=== PATIENT | female | born 1980 | race Caucasian/White ===

== ENCOUNTER → 2017-11-02 15:39 | Outpatient (CLI) | payer MEDICARE, SELFPAY ==
[2017-11-02 18:18] LABS: Thyroid Stim Hormone (TSH) 1.18 uIU/mL (0.358-3.74)
[2017-11-04 12:09] LABS: RNP Ab <0.2 AI (0.0-0.9)
[2017-11-04 14:14] LABS: Smith Ab 0.2 AI (0.0-0.9)
[2017-11-04 16:11] LABS: PROEL- A/G Ratio 0.9 (0.7-1.7); PROEL- Albumin 3.4 g/dL (2.9-4.4); PROEL- Alpha-1 Globulin 0.4 g/dL (0.0-0.4); PROEL- Alpha-2 Globulin 1.1 g/dL (0.4-1.0); PROEL- Beta Globulin 1.3 g/dL (0.7-1.3); PROEL- Globulin, Total 3.8 g/dL (2.2-3.9); PROEL- TOTAL PROTEIN 7.2 g/dL (6.0-8.5)
== END ==
PROVIDERS: Family Provider Family Medicine; PCP Family Medicine; Visit Provider Psychiatry & Neurology Neurology
DX: G44.52 New daily persistent headache (NDPH) (principal); G47.33 Obstructive sleep apnea (adult) (pediatric); G47.50 Parasomnia, unspecified; G62.9 Polyneuropathy, unspecified; R20.2 Paresthesia of skin; R53.83 Other fatigue
CPT/HCPCS: 82746; 84165; 84443; 86235

== ENCOUNTER 2017-11-18 09:30 | Outpatient (RCR) | payer MEDICARE, SELFPAY ==
--- NOTE | 2017-11-09 11:49 | HP.PTEVAL_ITS ---
Patient's Visit Information CLIFTON SARAH is a 37 year old F referred to Physical Therapy by MD NHAN Dougherty with a diagnosis of gait instability and neuropathy. Date of Evaluation: 11/09/17 Physical Therapist: Dacia Cisneros - Visit Plan Frequency: 2x /Week Duration: 6 Weeks Plan: Needs 3 L O2 all the time. 2X/ week for 5 weeks for LE strength, gait training, balance, endurance activities with HEP - Subjective Subjective: Pt went through some test at the Neurologist and they said that my coordination and balance was off. 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 said that she is really weak. Pt can not go up 5 steps without being out of breath. She is on 3 L O2 all the time and has been on it all the time for hypopoxemia and L lung is totally collapsed. He O2 drops quickly without O2. She will probably be on oxygen for the rest of her life. She is always on steroids for her breathing issues. She needs to get stronger so she can do things at home by self without nurses cause she no longer has the nurses at home anymore. Pt has had no falls but she gets off balance easily. She has to watch going down the stairs in the morning and she uses the railing. SHe has safety buzzer incase she does fall. She does not drive...her drives her everywhere. 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 She has 18 staeps to bedroom and 3 steps into house. 16 stairs to basement. All with railings. Pt uses a rollator if she has to walk long distances. Pt has N&T in hands and feet and has been diagnosed with Neuropathy and takes gabapetin and it helps but makes her tired. She does not do any formal exercises at home. Pt can go to the high school to walk when she is done with PT to keep endurance up when completed with PT. She has some type of elliptical bkie thing at home for when she is done. Pt needs help with pickin gup grocery bags and laundry baskets etc due to weakness, balancem and endurance - Objective Gait: Walks with 3 L O2 on backpack. LE MMT: B hip flex 4/5, Knee ext B 4/5, Knee flex L 4-/5 and R 4/5, hip abd L 4-/5, R 4/5. Able to heel and toe raise but slight LOB with toe raise. FGA: 17. Sit to stand: needs UE to get up from the chair. Stairs: up and down stairs recip with 1 hand rail with increase SOB - Balance Scores Functional Gait Assessment Score: 17 % Disability: 43.3400 - Goals Goal 1:: I HEP Goal Time Frame: 4-6 Weeks Goal 2:: Be able to merchandise pickup/receiving associate a laundry basket X 10 without any LOB or difficulty and be able to merchandise pickup/receiving associate 10 bags of groceries without LOB or difficulty with SBA Goal Time Frame: 4-6 Weeks Goal 3:: Increase LE strength by 1/2 muscle grade to ease ADL's Goal Time Frame: 4-6 Weeks Goal 4:: Increase FGA by 5 points to decrease fall risk to (22) Goal Time Frame: 4-6 Weeks - Rehabilitation Potential Rehabilitation Potential: Good - Anticipated Interventions Therapeutic Exercise to Include: Strength training, Endurance training, Balance training, Flexibilty training, Gait and locomotor training, Active ROM, Dynamic Lumbar Stabilization For the Purpose of:: To improve muscle performance and motor function, To increase tolerance to activity/condition/position, To improve performance and independence with ADL's, To decrease level of supervision to perform tasks, To improve ability of physical actions for home/community/work/leisure, To improve gait and locomotor functions, To improve endurance, To improve balance, To improve safety with gait Functional Training to Include: Gait training For the Purpose of:: To improve gait and locomotor functions, To improve safety with gait Thank you for the opportunity to evaluate your patient. For Medicare and Medicare HMO plans, please review the plan of care and approve it. It will need to be FAXED BACK to us at [phone] for Medicare purposes. Please let me know if there are questions or concerns regarding this plan of care. Physician Signature: Date:
--- NOTE | 2018-03-04 14:10 | HP.PT.NRP ---
HP - Discharge Summary (1) - Patient Information CLIFTON SARAH was seen in my office for initial evaluation on 11/09/17. The following Plan of Care was established for this patient: Initial Frequency: 2x /Week Initial Duration: 6 Weeks - Anticipated Interventions Therapeutic Exercise to Include: Strength training, Endurance training, Balance training, Flexibilty training, Gait and locomotor training, Active ROM, Dynamic Lumbar Stabilization For the Purpose of:: To improve muscle performance and motor function, To increase tolerance to activity/condition/position, To improve performance and independence with ADL's, To decrease level of supervision to perform tasks, To improve ability of physical actions for home/community/work/leisure, To improve gait and locomotor functions, To improve endurance, To improve balance, To improve safety with gait Functional Training to Include: Gait training For the Purpose of:: To improve gait and locomotor functions, To improve safety with gait This patient was last seen in our office 11/18/17. Pertinent comments regarding their Physical therapy will appear below: DC PT due to pt being ill and not reschedule At this point I will be discontinuing this patient from physical therapy. I would be happy to see this patient again in the future if found appropriate by the physician. Thank you! Dacia Cisneros
== END 2017-11-18 19:00 | disposition home or self-care (01) ==
LOC: PT 09:30
PROVIDERS: Family Provider Family Medicine; PCP Family Medicine; Visit Provider Psychiatry & Neurology Neurology
DX: G62.9 Polyneuropathy, unspecified (principal); R26.9 Unspecified abnormalities of gait and mobility
CPT/HCPCS: 97110; 97162

== ENCOUNTER 2017-11-28 18:17 | Emergency (ER) | payer MEDICARE, SELFPAY ==
[2017-11-28 18:18] VITALS: BP 145/86; PULSE 85; RESP 16; TEMP 36.2; O2SAT 94; BMI 36.9
[2017-11-28 18:45] VITALS: O2SAT 3
--- NOTE | 2017-11-28 18:53 | ED.VISSUMM ---
- ER Visit Summary Date of Service: 11/28/17 Chief Complaint: Cough and wheezing History of Present Illness: The patient is a 37 F long-term history of underlying lung disease and asthma. Chronically is on oxygen. Is also a type II diabetic. Patient states last months she has had a cough which is progressively worsened and now with worsening wheezing. Her gis consultant Dr. Lorenzo Brown has recently put her on mag Z-Darian on Wednesday. She is also on a cough syrup. She currently is not on prednisone. She denies any chest pain or hemoptysis. She does have a fever. Physical Examination: Vital signs are stable her pulse ox is 94% on 3 L no hypoxia. Currently she is afebrile 97 2. He does not look septic or toxic. H EENT exam unremarkable. Neck nontender no JVD no lymphadenopathy. Lungs expiratory wheezing throughout. No rales or rhonchi. Equal symmetrical. Heart regular rhythm no murmur. Abdomen morbidly obese but soft nontender nondistended no giving or masses. Remedies moves all 4. Calves nontender no edema no cords. Her logically she is awake alert with no focal deficits. Test Results: Chest x-ray shows no acute abnormality. Emergency Department Course and Treatment: Treated with p.o. prednisone and DuoNeb and albuterol aerosols Treatment Plan: Exam the patient is doing well at 2044. He is much improved. No distress. She is comfortable being discharged home. She will be started on prednisone 20 mg a day for the next 10 days. Follow-up with Dr. Lorenzo Brown. She is currently on antibiotics and antitussives. Disposition: dc Impression: Acute dyspnea with wheezing Acute bronchitis with bronchospasm This note was generated with [employer] dictation software. It may contain incorrect words, spelling, and punctuation that were not noted in review of the chart prior to signing ED Disposition - Plan for ED Patient: Chief Complaint: Cough Referrals: Asim Cohn DO [Primary Care Provider] -
--- NOTE | 2017-11-28 18:56 | ED.DCSUM_ITS ---
- ER Visit Summary Date of Service: 11/28/17 Chief Complaint: Cough and wheezing History of Present Illness: The patient is a 37 F long-term history of underlying lung disease and asthma. Chronically is on oxygen. Is also a type II diabetic. Patient states last months she has had a cough which is progressively worsened and now with worsening wheezing. Her exploration engineer Dr. Lorenzo Brown has recently put her on mag Z-Darian on Wednesday. She is also on a cough syrup. She currently is not on prednisone. She denies any chest pain or hemoptysis. She does have a fever. Physical Examination: Vital signs are stable her pulse ox is 94% on 3 L no hypoxia. Currently she is afebrile 97 2. He does not look septic or toxic. H EENT exam unremarkable. Neck nontender no JVD no lymphadenopathy. Lungs expiratory wheezing throughout. No rales or rhonchi. Equal symmetrical. Heart regular rhythm no murmur. Abdomen morbidly obese but soft nontender nondistended no giving or masses. Remedies moves all 4. Calves nontender no edema no cords. Her logically she is awake alert with no focal deficits. Test Results: Chest x-ray shows no acute abnormality. Emergency Department Course and Treatment: Treated with p.o. prednisone and DuoNeb and albuterol aerosols Treatment Plan: Exam the patient is doing well at 2044. He is much improved. No distress. She is comfortable being discharged home. She will be started on prednisone 20 mg a day for the next 10 days. Follow-up with Dr. Lorenzo Brown. She is currently on antibiotics and antitussives. Disposition: dc Impression: Acute dyspnea with wheezing Acute bronchitis with bronchospasm This note was generated with [employer] dictation software. It may contain incorrect words, spelling, and punctuation that were not noted in review of the chart prior to signing ED Disposition - Plan for ED Patient: Chief Complaint: Cough Referrals: Asim Cohn DO [Primary Care Provider] -
[2017-11-28 19:06] VITALS: PULSE 77; RESP 30; O2SAT 96
[2017-11-28] MEDS: Ipratropium/Albuterol Sulfate 3 ML AMPUL.NEB INHALATION (19:06)
[2017-11-28] MEDS: Albuterol 2.5 MG/3 ML VIAL.NEB. INHALATION ×3 (19:06→19:45)
--- NOTE | 2017-11-28 19:28 | RAD_ITS ---
STUDY: X-RAY CHEST REASON FOR EXAM: Female, 37 years old. Cough for one month. TECHNIQUE: AP and lateral views of the chest. COMPARISON: July 15, 2017. FINDINGS: The right lung appears hyperexpanded. The left lung is expanded. There is no obvious airspace consolidation, pleural effusions or pneumothorax. There is no demonstrated pleural abnormality. There is borderline cardiomegaly. Normal mediastinum and cherelle. There is prominence of the pulmonary hilar arteries without peripheral pulmonary vascular congestion. There is atherosclerotic tortuosity of the aortic arch and descending thoracic aorta. Normal visualized thoracic spine. Normal visualized ribs, clavicles, and shoulders. There is no demonstrated abnormality of the visualized soft tissue structures of the upper abdomen. RAD/Chest PA and Lateral IMPRESSION: No radiographic evidence of acute cardiopulmonary disease. Electronically Signed: Joseline Long MD at 19:59 EST , Service support ,
[2017-11-28 19:45] VITALS: PULSE 75; RESP 28
--- NOTE | 2017-11-28 20:57 | ED.DEP ---
ED Disposition - Plan for ED Patient: Disposition: Home or Assisted Living Chief Complaint: Cough Instructions: ED Bronchitis Asthmatic Prescriptions: Prednisone [Deltasone] 40 mg PO DAILY 10 Days tab Referrals: Lorenzo Brown MD [STAFF PHYSICIAN] - 3-5 Days Additional Instructions: Continue your antibiotic. Continue your cough medication. Prednisone 40 mg a day till gone. Call and follow-up with Dr. Lorenzo Brown. Return to ER feeling worse.
[2017-11-28 21:03] VITALS: BP 119/65; PULSE 98; RESP 24; O2SAT 97
--- NOTE | 2017-11-28 21:05 | ED.RN ---
THIS NURSE REVIEWED D/C INSTRUCTIONS WITH PT AND S.O. PT VERBALIZED UNDERSTANDING OF INSTRUCTIONS. PT DENIES FURTHER NEEDS OR QUESTIONS AT THIS TIME.
== END 2017-11-28 21:06 | disposition home or self-care (01) ==
PROVIDERS: Emergency Provider Emergency Medicine; Family Provider Family Medicine; PCP Family Medicine
DX: J20.9 Acute bronchitis, unspecified (principal); R06.00 Dyspnea, unspecified; J45.909 Unspecified asthma, uncomplicated; E11.9 Type 2 diabetes mellitus without complications; Z99.81 Dependence on supplemental oxygen; Z79.84 Long term (current) use of oral hypoglycemic drugs; Z79.899 Other long term (current) drug therapy
CPT/HCPCS: 71046; 94640; 99283

== ENCOUNTER 2017-11-30 09:50 | Inpatient (IN) | payer MEDICARE, SELFPAY ==
[2017-11-30] VITALS (11 sets, daily range): BP systolic 136–167; BP diastolic 74–96; PULSE 78–110; RESP 16–20; TEMP 36.8–36.9; O2SAT 96–98; BMI 39.2
--- NOTE | 2017-11-30 10:43 | PCM.HP.STD ---
Problem List (1) Restrictive airway disease Status: Chronic (2) Asthma Status: Chronic Qualifiers: Asthma severity: moderate Asthma persistence: persistent Asthma complication type: uncomplicated Qualified Code(s): J45.40 - Moderate persistent asthma, uncomplicated; J45.40 - Moderate persistent asthma, uncomplicated; J45.40 - Moderate persistent asthma, uncomplicated (3) Asthma exacerbation Status: Acute Qualifiers: Asthma severity: unspecified severity Asthma persistence: unspecified Qualified Code(s): J45.901 - Unspecified asthma with (acute) exacerbation (4) Chronic hypoxemic respiratory failure Status: Chronic (5) Community acquired pneumonia Status: Inactive (6) Diaphragmatic hernia congenital Status: Chronic (7) Failure of outpatient treatment Status: Acute (8) HTN (hypertension) Status: Chronic (9) hx chest surgery Status: Chronic Comment: age 8 (10) Hypokalemia Status: Chronic (11) Morbid obesity Status: Chronic (12) Obesity Status: Chronic (13) Obstructive sleep apnea Status: Chronic (14) RLQ intramuscular mass Status: Chronic (15) Type 2 diabetes mellitus Status: Chronic (16) Viral URI Status: Suspected History of Present Illness Date of Admission: 11/30/17 Chief Complaint: Shortness of breath The patient is a 37 year old F past medical history significant for moderate persistent asthma, restrictive airway disease, chronic diastolic congestive heart failure obesity with BMI of 39.2 presented with shortness of breath. Patient had apparently been treated for suspected infectious bronchitis as outpatient by her PCP for a couple of weeks. Patient however reports worsening condition patient had apparently been seen in the emergency department 2 days prior to her admission was discharged home on Zithromax and prednisone. She was instructed to follow-up with her collaborating supervising physician/PCP. Patient was evaluated in the office on the day of her admission found to have significant bronchospasm subsequently sent to be admitted directly for inpatient management. On further questioning patient did admit to intermittent chills as well as subjective fever. Denied any nausea no vomiting. Did admit to having cough and wheezing. Past Medical History Past Medical History (Chronic Problems): Chronic Problems (Last Reviewed 11/30/17 @ 08:58 by Meli Pelaez) Restrictive airway disease (Chronic) Diaphragmatic hernia congenital (Chronic) Chronic hypoxemic respiratory failure (Chronic) Obstructive sleep apnea (Chronic) Morbid obesity (Chronic) Hypokalemia (Chronic) Asthma (Chronic) HTN (hypertension) (Chronic) Obesity (Chronic) RLQ intramuscular mass (Chronic) hx chest surgery (Chronic) age 8 Type 2 diabetes mellitus (Chronic) Allergies nabumetone Allergy (Unknown, Verified 11/30/17 08:57) Unknown hydrocodone bitartrate [From [place]] Allergy (Verified 11/30/17 08:57) Itching Penicillins Allergy (Verified 11/30/17 08:57) Swelling Home Medications: Ambulatory Orders Medication Instructions Recorded Metoprolol(XL)Succ [Toprol Xl 200 mg PO DAILY 02/10/14 (Beta Vishal)] Escitalopram Oxalate [Lexapro] 5 mg PO DAILY 10/23/15 Metformin HCl [Metformin HCl ER] 1,000 mg PO BID 03/25/16 Montelukast [Singulair] 10 mg PO QHS 04/21/16 Albuterol Aerosols [Ventolin 2.5 mg INHALATION Q4H PRN PRN 12/03/16 Aerosols] Albuterol Inhaler [Ventolin Hfa] 2 puff INHALATION Q4H PRN PRN 12/03/16 Dicyclomine HCl [Bentyl] 10 mg PO ACHS 12/03/16 Ipratropium/Albuterol Sulfate 3 ml INHALATION Q6H.RT 12/03/16 [Duoneb] Metolazone [Zaroxolyn] 5 mg PO Q7D 12/03/16 Multivitamin with Folic Acid 1 ea PO DAILY 12/03/16 [Thera Tablet] Potassium Chloride 20 meq PO DAILY 12/03/16 Sertraline HCl [Zoloft] 100 mg PO DAILY 08/29/17 baclofen 10 mg tablet 20 mg PO TID PRN tab 09/24/17 fluticasone 50 mcg/actuation nasal 2 spray INTRANASAL DAILY PRN 09/24/17 spray,suspension furosemide 40 mg tablet 20 mg PO BID tab 09/24/17 gabapentin 100 mg capsule 100 mg PO TID cap 09/24/17 benzonatate 100 mg capsule 100 mg PO TID PRN #30 cap 11/26/17 Azithromycin 250 mg PO DAILY 11/30/17 Dulaglutide [Trulicity] 1.5 mg SQ QWEEK 11/30/17 Naproxen [Naprosyn] 500 mg PO BID PRN PRN 11/30/17 Omeprazole 20 mg PO DAILY 11/30/17 Pantoprazole Sodium [Protonix] 40 mg PO DAILY 11/30/17 Prednisone [Deltasone] 40 mg PO BID 11/30/17 ProMETHAzine [Phenergan] 25 mg PO Q8H PRN PRN 11/30/17 Spironolactone [Aldactone] 25 mg PO BID 11/30/17 Sumatriptan Succinate [Imitrex] 100 mg PO DAILY PRN 11/30/17 Topiramate [Trokendi Xr] 50 mg PO QHS 11/30/17 Verapamil HCl [Verapamil ER] 240 mg PO BID 11/30/17 Surgical History: - - hysterectomy, tubal ligation, cardiac surgery of unclear reason. She mentioned that she has abnormal positioned heart and she went for surgery for it. History of lung surgery and possible chest tubes. Psychiatric History: No pertinent psych hx DIRECTOR PRESALES History: No pertinent DIRECTOR PRESALES history Smoking Status: Never smoker - *Family History Maternal History Items: No pertinent history Paternal History Items: No pertinent history Review of Systems Constitutional: Reports: Chills, Weakness, Fatigue HEENT: Denies: Head Aches, Sinus Congestion, Sinus Drainage Cardiovascular: Denies: Chest Pain, Palpitations Respiratory: Reports: Cough, Shortness of Breath, Wheezing Gastrointestinal: Denies: Abdominal Pain, Hematemesis, Hematochezia, Nausea, Melena, Vomiting Genitourinary: Denies: Dysuria, Frequency, Hematuria, Urgency Musculoskeletal: Denies: Joint Pain, Joint Tenderness Skin: Denies: Rash Neurological: Denies: Focal weakness, Numbness, Tingling Psychiatric: Denies: Homicidal Ideations, Suicidal Ideations Hematologic/ Lymphatic: Denies: Easy Bruising, Easy Bleeding VTE Information - Inpt Only VTE Present on Admission: No VTE Mechan Device Prophylaxis: Knee High BRAYAN Hose VTE Pharm Prophylaxis ordered?: Yes Objective: GENERAL: cooperative HEENT: Clear conjunctiva, NECK; supple, normal thyroid, CHEST: Diminished to auscultation bilaterally, with wheezes more pronounced on the right lung HEART: Regular S1 S2, no audible murmurs ABDOMEN: soft, non-tender, normoactive bowel sounds, RECTAL: deferred EXTREMITIES: No edema, no clubbing, no cyanosis. MEDICINE TEACHER: Awake,no lateralizing signs. SKIN: No lesions no erythema, - Physical Exam Vital Signs Temp Pulse Resp BP Pulse Ox 98.3 F 82 20 H 137/96 H 98 11/30/17 10:11 11/30/17 10:11 11/30/17 10:11 11/30/17 10:13 11/30/17 10:11 Oxygen Flow Rate 3 Oxygen Delivery Method Nasal Cannula Assessment/Plan Patient is a 37-year-old lady with past medical history significant for asthma/restrictive lung disease presented with progressive shortness of breath 1. Exacerbation of asthma/restrictive lung disease: Patient is being admitted to regular nursing floor. She apparently did fail outpatient treatment. Patient started on systemic steroid, bronchodilator therapy, supplemental oxygen with consultation placed to pulmonary medicine case discussed with Dr. Mcclendon 2. Diabetes mellitus type 2 with labile control with episodes of both hypo-and hyperglycemia did continue with home regimen in addition to Accu-Cheks before meals and at bedtime with sliding scale coverage 3. Hypertension-blood pressure controlled, home medications continued with dose adjustment as needed 4. Morbid obesity with BMI of 39.2: Weight loss advised 3. History of open heart surgery for congenital heart disease for which patient apparently underwent correction for vascular abnormalities involving the heart (details not available) next 6. Depression with anxiety: Patient is on SSRI 7. Chronic diastolic congestive heart failure patient is on Lasix as well as Aldactone 8. DVT prophylaxis SC Lovenox Code Visit Inpatient E&M: 49552 Init Hosp L3
[2017-11-30] MEDS: 0.9% NaCl Peripheral Flush Adult/Peds IV ×3 (11:10→22:24)
[2017-11-30] MEDS: oxyCODONE 5 MG Tablet PO ×3 (11:10→22:14)
[2017-11-30 11:11] LABS: Bedside Glucose 85 mg/dL (70-110)
[2017-11-30] MEDS: Ipratropium/Albuterol Sulfate 3 ML AMPUL.NEB INHALATION ×3 (11:24→19:26)
[2017-11-30 11:44] LABS: BNP,B-Type NATRIURETIC PEPTIDE 50.5 pg/mL (0-100)
[2017-11-30 12:06] LABS: D-Dimer Quantitative (DVT/PE) < 0.27 FEU/ug/m (0.27-0.49)
[2017-11-30] MEDS: guaiFENesin 1,200 MG Tablet 1200 MG PO ×2 (12:19→22:14)
[2017-11-30] MEDS: Enoxaparin 40 MG/0.4 ML Syringe SC (12:19)
[2017-11-30 12:35] LABS: Absolute Lymphocyte Count 2.92 X10^3/ul (0.83-4.51); Absolute Neutrophil Count 5.6 X10^3/uL (2.0-7.7); Basophil# 0.03 X10^3/uL; Basophil% 0.3 % (0-1); Eosinophil# 0.05 X10^3/uL; Eosinophils% 0.5 % (0-5); Hematocrit 39.2 % (37-47); Lymphocyte # 2.92 X10^3/ul (4.0); Lymphocyte % 30.9 % (19-41); Mean Corp Hgb Conc 33.2 g/gl (32-36); Mean Corpuscular Hgb 27.6 pg (27.0-32.0); Mean Corpuscular Volume 83.2 fL (81-99); Mean Platelet Vol. 9.6 fl (6.2-12.0); Monocyte# 0.82 X10^3/uL; Monocyte% 8.7 % (0-10); Neutrophil % 59.2 % (47-70); Platelet Count 233 K/mm3 (150-450); RBC Distribution Width CV 13.9 % (11.6-14.6); Red Blood Count 4.71 M/mm3 (4.2-5.4); White Blood Count 9.5 K/mm3 (4.4-11.0)
[2017-11-30 12:36] LABS: Anion Gap 8 (5-15); BUN 12 mg/dL (7-18); BUN/Creat Ratio 15.9 RATIO (10-20); Calcium,Total 8.3 mg/dL (8.5-10.1); Chloride 107 mmol/L (98-107); Creatinine, Serum 0.76 mg/dL (0.55-1.02); EST Glomerular Filtration Rate 92 mL/min (>60); Est Glom Filt Rate - Afr Amer 112 mL/min (>60); Estimated Creatinine Clearance 107.97 ml/min; Glucose 89 mg/dL (74-106); Magnesium 2.1 mg/dL (1.6-2.6); Potassium 3.4 mmol/L (3.5-5.1); Sodium Level 141 mmol/L (136-145)
[2017-11-30 12:37] LABS: POSITIVE COUNT NO; POSITIVE DIFFERENTIAL NO; POSITIVE MORPHOLOGY NO
--- NOTE | 2017-11-30 13:01 | CON.PCM_ITS ---
Problem List (1) Failure of outpatient treatment Status: Acute (2) Hypokalemia Status: Chronic (3) Restrictive airway disease Status: Chronic (4) Chronic hypoxemic respiratory failure Status: Chronic (5) Diaphragmatic hernia congenital Status: Chronic (6) HTN (hypertension) Status: Chronic (7) Morbid obesity Status: Chronic (8) Obstructive sleep apnea Status: Chronic (9) Type 2 diabetes mellitus Status: Chronic (10) hx chest surgery Status: Chronic Comment: age 8 Reason for Consult Date of Consultation: 11/30/17 Reason for Consultation: dyspnea History of Present Illness: The patient is a 37 year old F known to with past medical history as below who was sent from the pulmonary clinic as a direct admit secondary to failed outpatient therapy for suspected URI versus asthma exacerbation. The patient was seen by Flori Lee NP as an acute visit today. Patient complains of a persistent, nonproductive cough and history of fever on Wednesday of 102.0?F. Patient has failed 2 rounds of outpatient Z-Paks and steroid tapers. Patient went to the ER on November 28 and was again treated with prednisone 40 mg daily for diagnosis of acute bronchitis with bronchospasm. Patient reported she actually blacked out yesterday and fell to the ground with no injury except for her right knee and left hand abrasions. She has had some nausea and vomiting associated with coughing. Her blood sugars have been elevated up to 450 since being on the prednisone. She is not on any insulin at home, however she takes metformin 1000 mg twice daily. Patient has been using her albuterol nebulizers every 4 hours with some relief. She also complains of dyspnea on exertion, chest tightness/pain with coughing, and wheezing. Patient was admitted to the progressive care unit for further evaluation and management. Chest x-ray obtained when patient was in ED on 11/28/17 and showed no acute cardiopulmonary disease. Blood work shows no leukocytosis, slightly low potassium at 3.4, normal BNP, and negative d-dimer. Influenza screen was negative. Respiratory panel was also obtained and is pending. The patient was started on scheduled DuoNeb aerosols q4hr, as needed albuterol, Mucinex, and IV Solu-Medrol ?4 doses with transition to oral steroids. She is maintaining appropriate saturations on her home oxygen requirements of 3 L per nasal cannula. She does wear the 3 L continuously at home and with bleed into her CPAP at night. Patient reports compliance with her noninvasive positive pressure therapy. Pulmonary exercise test was performed on 07/21/17 and demonstrated no need for supplemental oxygen at rest, however 3 L/min supplementation with any exertion. Pulmonary function tests in July 2017 demonstrated severe restrictive ventilatory defect with symmetric reduction in diffusing capacity. There were subtle signs of possible concomitant airway obstruction. Patient also reports a history of epilepsy and is on medications to manage. Also had echocardiogram in August 2017 that showed an estimated EF of 60%, mildly enlarged left atrium , trivial MVI and TVI. CTA chest 04/2016 showed elevation of the left hemidiaphragm with volume loss in the left hemithorax. There was stable scarring to the left lung base. Past Medical History Past Medical History (Chronic Problems): Chronic Problems (Last Reviewed 11/30/17 @ 08:58 by Meli Pelaez) Restrictive airway disease (Chronic) Diaphragmatic hernia congenital (Chronic) Chronic hypoxemic respiratory failure (Chronic) Obstructive sleep apnea (Chronic) Morbid obesity (Chronic) Hypokalemia (Chronic) Asthma (Chronic) HTN (hypertension) (Chronic) Obesity (Chronic) RLQ intramuscular mass (Chronic) hx chest surgery (Chronic) age 8 Type 2 diabetes mellitus (Chronic) Allergies nabumetone Allergy (Unknown, Verified 11/30/17 08:57) Unknown hydrocodone bitartrate [From [place]] Allergy (Verified 11/30/17 08:57) Itching Penicillins Allergy (Verified 11/30/17 08:57) Swelling Home Medications: Ambulatory Orders Medication Instructions Recorded Metoprolol(XL)Succ [Toprol Xl 200 mg PO DAILY 02/10/14 (Beta Vishal)] Escitalopram Oxalate [Lexapro] 5 mg PO DAILY 10/23/15 Metformin HCl [Metformin HCl ER] 1,000 mg PO BID 03/25/16 Montelukast [Singulair] 10 mg PO QHS 04/21/16 Albuterol Aerosols [Ventolin 2.5 mg INHALATION Q4H PRN PRN 12/03/16 Aerosols] Albuterol Inhaler [Ventolin Hfa] 2 puff INHALATION Q4H PRN PRN 12/03/16 Dicyclomine HCl [Bentyl] 10 mg PO ACHS 12/03/16 Ipratropium/Albuterol Sulfate 3 ml INHALATION Q6H.RT 12/03/16 [Duoneb] Metolazone [Zaroxolyn] 5 mg PO Q7D 12/03/16 Multivitamin with Folic Acid 1 ea PO DAILY 12/03/16 [Thera Tablet] Potassium Chloride 20 meq PO DAILY 12/03/16 Sertraline HCl [Zoloft] 100 mg PO DAILY 08/29/17 baclofen 10 mg tablet 20 mg PO TID PRN tab 09/24/17 fluticasone 50 mcg/actuation nasal 2 spray INTRANASAL DAILY PRN 09/24/17 spray,suspension furosemide 40 mg tablet 20 mg PO BID tab 09/24/17 gabapentin 100 mg capsule 100 mg PO TID cap 09/24/17 benzonatate 100 mg capsule 100 mg PO TID PRN #30 cap 11/26/17 Azithromycin 250 mg PO DAILY 11/30/17 Dulaglutide [Trulicity] 1.5 mg SQ QWEEK 11/30/17 Naproxen [Naprosyn] 500 mg PO BID PRN PRN 11/30/17 Omeprazole 20 mg PO DAILY 11/30/17 Pantoprazole Sodium [Protonix] 40 mg PO DAILY 11/30/17 Prednisone [Deltasone] 40 mg PO BID 11/30/17 ProMETHAzine [Phenergan] 25 mg PO Q8H PRN PRN 11/30/17 Spironolactone [Aldactone] 25 mg PO BID 11/30/17 Sumatriptan Succinate [Imitrex] 100 mg PO DAILY PRN 11/30/17 Topiramate [Trokendi Xr] 50 mg PO QHS 11/30/17 Verapamil HCl [Verapamil ER] 240 mg PO BID 11/30/17 Surgical History: - - hysterectomy, tubal ligation, cardiac surgery of unclear reason. She mentioned that she has abnormal positioned heart and she went for surgery for it. History of lung surgery and possible chest tubes. 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 Denies: Anorexia, Chills, Fever, Malaise, Weight Change Eyes: Denies: Vision Change HEENT: Denies: Difficulty Swallowing, Nasal bleeding, Nasal Congestion, Post Nasal Drip, Sinus Congestion, Sore Throat Cardiovascular: Reports: Chest Pain - With coughing, Chest Tightness, Light Headedness, - - Blacked out at home, no LOC. Denies: Edema, Orthopnea, Palpitations, Paroxysmal Noc. Dyspnea Respiratory: Reports: Cough, Shortness of breath upon exertion, Sputum production - Minimal, white to yellow. Denies: Hemoptysis, Shortness of breath at rest Gastrointestinal: Reports: Abdominal Pain, Diarrhea - Over the weekend, resolved., Nausea - Intermittent. Denies: Constipation, Dyspepsia, Hematemesis , Hematochezia, Melena, Vomiting Genitourinary: Denies: Dysuria, Frequency, Hematuria, Hesitancy, Nocturia, Retention Gynecological: Denies: Breast symptoms Musculoskeletal: Reports: - - Peripheral neuropathy pain Skin: Denies: Rash, Wounds Neurological: Reports: Balance problems, - - Peripheral neuropathy. Denies: Change in Speech, Confusion, Focal weakness, Tremor Psychiatric: Reports: Anxiety, Depression Endocrine: Denies: Change in Body Habitus, Polydipsia, Polyuria Hematologic/ Lymphatic: Reports: Easy Bruising. Denies: Adenopathy, Anemia, Easy Bleeding, Hx of blood clot Subjective: Patient was seen and examined. She is lying in bed in no acute distress, at bedside. She is coughing of yellow sputum and gave a sample. She complains of pain in her chest with coughing, wheezing, and dyspnea on exertion. - Physical Exam General: Alert, Oriented x3, Cooperative, No apparent distress, Well developed, Well nourished, - - Obese HEENT: Atraumatic, Normocephalic Oral: Moist Mucosa, No Gingival or Mucosal Lesions/ Ulcerations Neck: Supple, No Nodes, Trachea Midline, - - Increased neck circumference Lungs: - - Diminished throughout with moderate global expiratory wheeze, no rhonchi or rales. Symmetric expansion, no accessory muscle use Cardiovascular: Regular rate, Regular Rhythm, Normal S1, Normal S2, No murmurs, No rub noted, No Gallop Abdomen: Bowel Sounds Present, Soft, Non Tender, Non-Distended, Obese Extremities: No clubbing, No cyanosis, No edema, Capillary Refill Less than 3 Seconds, No Calf Tenderness, Peripheral Pulses Normal Skin: No rashes, - - Abrasion to right knee, no drainage Musculoskeletal: No Tenderness to Palpation of Joints or Extremities Lymphatic: No Cervical, Supraclavicular, or Inguinal Adenopathy Neurological: Cranial nerves II-XII grossly intact, Neuro grossly intact, Motor Exam 5/5 strength throughout Psych/Mental Status: Alert and oriented to time, place, person, mood and affect Vital Signs Temp Pulse Resp BP Pulse Ox 98.3 F 81 16 137/96 H 96 11/30/17 10:11 11/30/17 11:24 11/30/17 11:24 11/30/17 10:13 11/30/17 11:24 Oxygen Flow Rate 3 Oxygen Delivery Method Nasal Cannula Weight: 265 lb 9.6 oz Body Mass Index (BMI) 39.2 Intake and Output for Last 24 Hours 11/28/17 11/29/17 11/30/17 23:59 23:59 23:59 Intake Total 420 / 420 Balance 420 / 420 Microbiology Past 72 Hours 11/30/17 11:20 Influenza Types A,B Direct FA (ANNELISE) - Final Mucosa - Nose Laboratory Tests Past 24 Hrs 11/30/17 11/30/17 11/30/17 10:55 10:55 10:55 WBC 9.5 RBC 4.71 Hgb 13.0 Hct 39.2 MCV 83.2 MCH 27.6 MCHC 33.2 RDW 13.9 RDW Differential 42.0 Plt Count 233 MPV 9.6 Immature Gran % (Auto) 0.400 Neut % (Auto) 59.2 Lymph % (Auto) 30.9 [place] % (Auto) 8.7 Eos % (Auto) 0.5 Baso % (Auto) 0.3 Absolute Neuts (auto) 5.6 Absolute Lymphs (auto) 2.92 Total Counted Not Reportable D-Dimer Quant (PE/DVT) < 0.27 L Sodium Potassium Chloride Carbon Dioxide Anion Gap BUN Creatinine Estim Creat Clear Calc Est GFR (MDRD) Af Amer Est GFR (MDRD) Non-Af BUN/Creatinine Ratio Glucose Calcium Magnesium B-Natriuretic Peptide 50.5 11/30/17 10:55 WBC RBC Hgb Hct MCV MCH MCHC RDW RDW Differential Plt Count MPV Immature Gran % (Auto) Neut % (Auto) Lymph % (Auto) [place] % (Auto) Eos % (Auto) Baso % (Auto) Absolute Neuts (auto) Absolute Lymphs (auto) Total Counted D-Dimer Quant (PE/DVT) Sodium 141 Potassium 3.4 L Chloride 107 Carbon Dioxide 26.0 Anion Gap 8 BUN 12 Creatinine 0.76 Estim Creat Clear Calc 107.97 Est GFR (MDRD) Af Amer 112 Est GFR (MDRD) Non-Af 92 BUN/Creatinine Ratio 15.9 Glucose 89 Calcium 8.3 L Magnesium 2.1 B-Natriuretic Peptide POC Glucose 11/30/17 11:04 POC Glucose 85 Assessment/Plan RECOMMENDATIONS 1. Wean oxygen supplementation to keep saturations greater than 90%. 2. Encourage incentive spirometer 3. Increase activity as tolerated 4. Continue aerosols 5. Await respiratory panel 6. Change IV steroids to 40 mg q6 hours 7. Discontinue NicoDerm patch, patient non-smoker 8. Adjust insulin for blood sugar control while on steroids, patient may need to be discharged on temporary insulin 9. Obtain sputum culture 10. Continue CPAP at night with 3 L oxygen bleed 11. Walking oximetry prior to discharge IMPRESSIONS 1. Asthma exacerbation Per PFTs, patient does not have COPD. Patient with outpatient treatment failure on 2 rounds of Z-Darian and steroids. Still with significant wheezing, fevers over the weekend, nausea. No chilling. Blood sugars have been high since on steroids, felt like she was going to pass out yesterday. She has been afebrile with no leukocytosis. Respiratory panel and sputum pending. Influenza negative. D-dimer and BNP normal. Patient has significant hernia that could be exacerbating her asthma. She is on baseline PPI at home. Change IV steroids to 40mg q6h. Likely can discontinue antibiotics if cultures data normal. Increase activity as tolerated and continue bronchodilators. 2. Chronic respiratory failure Patient wears 3 L oxygen at all times, despite walking oximetry showing she needed only with exertion. He does have significant exercise intolerance. This may be partially due to obesity hypoventilation syndrome. Wean oxygen supplementation to keep saturations greater than 90%. Walking oximetry prior to discharge to reassess exertional need requirements. 3. Diabetes mellitus/hypertension/morbid obesity/history of chest surgery/ hypokalemia/congenital diaphragmatic hernia [place] care, management, recovery, and prognosis. Adjust insulin as necessary for better glucose control. Likely okay to continue her home medications otherwise. This note was generated with Dragon dictation software. It may contain incorrect words, spelling, and punctuation that were not noted in checking the note before signing.
[2017-11-30] MEDS: Dicyclomine 10 MG Capsule PO ×2 (16:13→22:14)
[2017-11-30] MEDS: Gabapentin 100 MG Capsule PO (16:13)
[2017-11-30 16:26] LABS: Bedside Glucose 96 mg/dL (70-110)
[2017-11-30] MEDS: Spironolactone 25 MG Tablet PO (17:31)
[2017-11-30] MEDS: Benzonatate 100 MG Capsule PO (17:31)
[2017-11-30] MEDS: Furosemide 20 MG Tablet PO (17:31)
[2017-11-30] MEDS: Verapamil SR 240 MG Tablet PO (22:14)
[2017-11-30] MEDS: Montelukast 10 MG Tablet PO (22:14)
[2017-11-30] MEDS: TOPIRAMATE 50 MG PO (22:14)
[2017-11-30 22:35] LABS: Bedside Glucose 172 mg/dL (70-110)
[2017-12-01] VITALS (11 sets, daily range): BP systolic 124–152; BP diastolic 70–82; PULSE 72–107; RESP 16–28; TEMP 36.4–37; O2SAT 95–97
[2017-12-01] MEDS: 0.9% NaCl Peripheral Flush Adult/Peds IV ×4 (00:38→23:16)
[2017-12-01] MEDS: Dicyclomine 10 MG Capsule PO ×4 (06:27→21:29)
[2017-12-01] MEDS: oxyCODONE 5 MG Tablet PO ×2 (06:27→10:35)
[2017-12-01 07:01] LABS: Bedside Glucose 200 mg/dL (70-110)
[2017-12-01] MEDS: Ipratropium/Albuterol Sulfate 3 ML AMPUL.NEB INHALATION ×5 (07:23→23:29)
[2017-12-01] MEDS: Gabapentin 100 MG Capsule PO ×3 (08:34→16:20)
[2017-12-01] MEDS: Multivitamins,Therapeutic Tablet 1 TABLET PO (08:34)
--- NOTE | 2017-12-01 10:05 | PCM.PROGNOTE ---
Patient Problems: Active and Suspected Problems (Last Reviewed 11/30/17 @ 08:58 by Meli Pelaez) Viral URI (Acute) Asthma exacerbation (Acute) Subjective: The patient was seen and examined. She is sitting up in the chair. States she did not sleep much last night secondary to coughing, does worsen if lying down. Reports Brian Dunn not helping. States her breathing has improved with less wheezing. Denies reflux at this time. Remains afebrile and hemodynamically stable. Objective: Recent lab and culture data reviewed. Respiratory panel showing RSV B, influenza negative. Respiratory culture is pending with Gram stain showing 3+ gram-positive cocci, 2+ gram-negative rods, and 1+ WBCs. Blood sugar this morning was 200. Patient on sliding scale NovoLog. - Physical Exam General: Alert, Oriented x3, Cooperative, No apparent distress, Well developed, Well nourished HEENT: Atraumatic, Normocephalic Oral: Moist Mucosa, No Gingival or Mucosal Lesions/ Ulcerations Neck: Supple, No Nodes, Trachea Midline Lungs: Diminished, - - Diminished with expiratory wheezes R>L, improved airflow Cardiovascular: Regular rate, Regular Rhythm, Normal S1, Normal S2, No murmurs, No rub noted, No Gallop Abdomen: Bowel Sounds Present, Soft, Non Tender, Non-Distended, Obese, Hernia Extremities: No clubbing, No cyanosis, No edema Skin: No rashes, No breakdown Musculoskeletal: No Tenderness to Palpation of Joints or Extremities Lymphatic: No Cervical, Supraclavicular, or Inguinal Adenopathy Neurological: Cranial nerves II-XII grossly intact, Neuro grossly intact, Motor Exam 5/5 strength throughout Psych/Mental Status: Alert and oriented to time, place, person, mood and affect Vital Signs Temp Pulse Resp BP Pulse Ox 97.8 F 92 18 150/79 H 97 12/01/17 04:20 12/01/17 07:23 12/01/17 07:23 12/01/17 04:20 12/01/17 07:23 Oxygen Flow Rate 3 Oxygen Delivery Method Nasal Cannula Weight: 265 lb 9.6 oz Body Mass Index (BMI) 39.2 Intake and Output for Last 24 Hours 11/29/17 11/30/17 12/01/17 23:59 23:59 23:59 Intake Total 721 / 721 444 / 444 Balance 721 / 721 444 / 444 Microbiology Past 72 Hours 11/30/17 11:20 Respiratory Panel (PCR) - Final Mucosa - Nose RSV B 11/30/17 13:35 Gram Stain - Final Sputum, Expectorated/Coughed 11/30/17 11:20 Influenza Types A,B Direct FA (ANNELISE) - Final Mucosa - Nose Laboratory Tests Past 24 Hrs 11/30/17 11/30/17 11/30/17 10:55 10:55 10:55 WBC 9.5 RBC 4.71 Hgb 13.0 Hct 39.2 MCV 83.2 MCH 27.6 MCHC 33.2 RDW 13.9 RDW Differential 42.0 Plt Count 233 MPV 9.6 Immature Gran % (Auto) 0.400 Neut % (Auto) 59.2 Lymph % (Auto) 30.9 [place] % (Auto) 8.7 Eos % (Auto) 0.5 Baso % (Auto) 0.3 Absolute Neuts (auto) 5.6 Absolute Lymphs (auto) 2.92 Total Counted Not Reportable D-Dimer Quant (PE/DVT) < 0.27 L Sodium Potassium Chloride Carbon Dioxide Anion Gap BUN Creatinine Estim Creat Clear Calc Est GFR (MDRD) Af Amer Est GFR (MDRD) Non-Af BUN/Creatinine Ratio Glucose Calcium Magnesium B-Natriuretic Peptide 50.5 11/30/17 10:55 WBC RBC Hgb Hct MCV MCH MCHC RDW RDW Differential Plt Count MPV Immature Gran % (Auto) Neut % (Auto) Lymph % (Auto) [place] % (Auto) Eos % (Auto) Baso % (Auto) Absolute Neuts (auto) Absolute Lymphs (auto) Total Counted D-Dimer Quant (PE/DVT) Sodium 141 Potassium 3.4 L Chloride 107 Carbon Dioxide 26.0 Anion Gap 8 BUN 12 Creatinine 0.76 Estim Creat Clear Calc 107.97 Est GFR (MDRD) Af Amer 112 Est GFR (MDRD) Non-Af 92 BUN/Creatinine Ratio 15.9 Glucose 89 Calcium 8.3 L Magnesium 2.1 B-Natriuretic Peptide POC Glucose 12/01/17 11/30/17 11/30/17 06:53 22:13 16:12 POC Glucose 200 H 172 H 96 11/30/17 11:04 POC Glucose 85 Assessment/Plan Active and Suspected Problems (Last Reviewed 11/30/17 @ 08:58 by Meli Pelaez) Viral URI (Acute) Asthma exacerbation (Acute) RECOMMENDATIONS 1. Wean oxygen supplementation to keep saturations greater than 90%. 2. Encourage incentive spirometer 3. Increase activity as tolerated 4. Continue aerosols 5. Await sputum culture 6. Continue IV steroids, transition to oral tomorrow with taper at d/c 7. Continue CPAP at night with 3 L oxygen bleed 8. Walking oximetry prior to discharge IMPRESSIONS 1. Asthma exacerbation secondary to RSV B Per PFTs, patient does not have COPD. Patient with outpatient treatment failure on 2 rounds of Z-Darian and steroids. She has been afebrile with no leukocytosis. Respiratory panel showing RSV B and sputum culture pending. Influenza negative. D-dimer and BNP normal. Patient has significant hernia that could be exacerbating her asthma. She is on baseline PPI at home. Continue IV steroids, likely okay to transition to oral tomorrow with taper at discharge. Antibiotics discontinued. Increase activity as tolerated and continue bronchodilators. Continue Flonase and Singulair. 2. Chronic respiratory failure Patient wears 3 L oxygen at all times, despite walking oximetry showing she needed only with exertion. He does have significant exercise intolerance. This may be partially due to obesity hypoventilation syndrome. Wean oxygen supplementation to keep saturations greater than 90%. Walking oximetry prior to discharge to reassess exertional need requirements. 3. Diabetes mellitus/hypertension/morbid obesity/history of chest surgery/hypokalemia/congenital diaphragmatic hernia [place] care, management, recovery, and prognosis. Adjust insulin as necessary for better glucose control. Likely okay to continue her home medications otherwise. This note was generated with [employer] dictation software. It may contain incorrect words, spelling, and punctuation that were not noted in checking the note before signing.
[2017-12-01] MEDS: Pantoprazole Sodium 40 MG Tablet PO (10:34)
[2017-12-01] MEDS: Metoprolol(XL)Succ 200 MG Tablet PO (10:34)
[2017-12-01] MEDS: Spironolactone 25 MG Tablet PO ×2 (10:35→17:03)
[2017-12-01] MEDS: guaiFENesin 1,200 MG Tablet 1200 MG PO ×2 (10:36→21:29)
[2017-12-01] MEDS: Verapamil SR 240 MG Tablet PO ×2 (10:36→21:29)
[2017-12-01] MEDS: Sertraline 100 MG Tablet PO (10:36)
[2017-12-01] MEDS: Enoxaparin 40 MG/0.4 ML Syringe SC (10:36)
[2017-12-01] MEDS: Furosemide 20 MG Tablet PO ×2 (10:36→17:03)
--- NOTE | 2017-12-01 11:09 | PCM.PN.HOSP ---
Patient Problems: Active and Suspected Problems (Last Updated 12/01/17 @ 10:35 by Pily Watson, EDUCATION TEACHER-C) Viral URI (Acute) Asthma exacerbation (Acute) Subjective: Patient is a 37-year-old lady with past medical history significant for asthma/restrictive lung disease presented with progressive shortness of breath Objective: GENERAL: cooperative HEENT: Clear conjunctiva, NECK; supple, normal thyroid, CHEST: Diminished to auscultation bilaterally, with wheezes more pronounced on the right lung HEART: Regular S1 S2, no audible murmurs ABDOMEN: soft, non-tender, normoactive bowel sounds, RECTAL: deferred EXTREMITIES: No edema, no clubbing, no cyanosis. RUBBER COMPOUNDER FORMULATOR: Awake,no lateralizing signs. SKIN: No lesions no erythema, Vitals/I&O's: Vital Signs Temp Pulse Resp BP Pulse Ox 98.6 F 90 16 145/75 H 96 12/01/17 10:20 12/01/17 10:34 12/01/17 10:20 12/01/17 10:20 12/01/17 10:20 Oxygen Flow Rate 3 Oxygen Delivery Method Nasal Cannula Weight: 120.474 kg Body Mass Index (BMI) 39.2 Intake and Output for Last 24 Hours 11/29/17 11/30/17 12/01/17 23:59 23:59 23:59 Intake Total 721 / 721 444 / 444 Balance 721 / 721 444 / 444 Microbiology Past 72 Hours 11/30/17 11:20 Mucosa - Nose Respiratory Panel (PCR) - Final RSV B 11/30/17 13:35 Sputum, Expectorated/Coughed Gram Stain - Final 11/30/17 11:20 Mucosa - Nose Influenza Types A,B Direct FA (ANNELISE) - Final Laboratory Results 11/30/17 10:55: D-Dimer Quant (PE/DVT) < 0.27 L 11/30/17 10:55: B-Natriuretic Peptide 50.5 11/30/17 10:55: WBC 9.5, RBC 4.71, Hgb 13.0, Hct 39.2, MCV 83.2, MCH 27.6, MCHC 33.2, RDW 13.9, RDW Differential 42.0, Plt Count 233, MPV 9.6, Immature Gran % (Auto) 0.400, Neut % (Auto) 59.2, Lymph % (Auto) 30.9, [place]oval % (Auto) 8.7, Eos % (Auto) 0.5, Baso % (Auto) 0.3, Absolute Neuts (auto) 5.6, Absolute Lymphs (auto) 2.92, Total Counted Not Reportable 11/30/17 10:55: Sodium 141, Potassium 3.4 L, Chloride 107, Carbon Dioxide 26.0, Anion Gap 8, BUN 12, Creatinine 0.76, Estim Creat Clear Calc 107.97, Est GFR (MDRD) Af Amer 112, Est GFR (MDRD) Non-Af 92, BUN/Creatinine Ratio 15.9, Glucose 89, Calcium 8.3 L, Magnesium 2.1 11/30/17 11:04: POC Glucose 85 11/30/17 16:12: POC Glucose 96 11/30/17 22:13: POC Glucose 172 H 12/01/17 06:53: POC Glucose 200 H Current Medications Acetaminophen (Tylenol) 650 mg PO Q6H PRN PRN PRN Reason: Mild Pain (scale 0-3)/T>100.7 Al Hydroxide/Mg Hydroxide (Mylanta Ii) 30 ml PO Q6H PRN PRN PRN Reason: Gastric burning Albuterol Sulfate (Ventolin Aerosols) 2.5 mg INHALATION Q2H PRN PRN PRN Reason: SHORTNESS OF BREATH Albuterol/Ipratropium (Duoneb) 3 ml INHALATION Q4H.RT [facility] Last Admin: 12/01/17 10:45 Dose: 3 ml Baclofen (Lioresal) 20 mg PO TID PRN PRN Reason: PAIN Benzonatate (Tessalon Perle) 100 mg PO TID PRN PRN Reason: cough Last Admin: 11/30/17 17:31 Dose: 100 mg Dextrose (D50w Syringe) 0 gm IV X1 PRN; Protocol PRN Reason: Hypoglycemia Dicyclomine HCl (Bentyl) 10 mg PO ACHS [facility] Last Admin: 12/01/17 10:35 Dose: 10 mg Enoxaparin Sodium (Lovenox) 40 mg SC DAILY@1000 BELLE Last Admin: 12/01/17 10:36 Dose: 40 mg Fluticasone Propionate (Flonase Nasal [place]) 2 spray NASAL DAILY PRN PRN Reason: ALLERGIES Furosemide (Lasix) 20 mg PO BIDLX [facility] Last Admin: 12/01/17 10:36 Dose: 20 mg Gabapentin (Neurontin) 100 mg PO TIDCM [facility] Last Admin: 12/01/17 08:34 Dose: 100 mg Glucagon () 1 mg IM .X1 PRN PRN Reason: Hypoglycemia Guaifenesin (Mucinex) 1,200 mg PO BID [facility] Last Admin: 12/01/17 10:36 Dose: 1,200 mg Insulin Aspart (Novolog Flexpen (Bkc)) 0 units SC ACHS [facility] PRN Reason: Protocol Last Admin: 12/01/17 08:34 Dose: 4 units Magnesium Hydroxide (Milk Of Magnesia) 30 ml PO DAILY PRN PRN PRN Reason: Constipation Methylprednisolone (Solu-Medrol) 40 mg IV Q6 [facility] Last Admin: 12/01/17 06:27 Dose: 40 mg Metolazone (Zaroxolyn) 5 mg PO Q7D [facility] Metoprolol Succinate (Toprol Xl (Beta Vishal)) 200 mg PO DAILY [facility] Last Admin: 12/01/17 10:34 Dose: 200 mg Montelukast Sodium (Singulair) 10 mg PO QHS [facility] Last Admin: 11/30/17 22:14 Dose: 10 mg [facility]it[facility] Last Admin: 12/01/17 08:34 Dose: 1 tablet Non-Formulary Medication (Dulaglutide) 1.5 mg SQ QWEEK [facility] Ondansetron HCl (Zofran) 4 mg IV Q8H PRN PRN PRN Reason: NAUSEA Oxycodone HCl (Oxyir) 5 mg PO Q4H PRN PRN PRN Reason: Moderate Pain (pain scale 4-5) Last Admin: 12/01/17 10:35 Dose: 5 mg Pantoprazole Sodium (Protonix) 40 mg PO DAILY [facility] Last Admin: 12/01/17 10:34 Dose: 40 mg Potassium Ch[facility] ([facility]) [facility] Last Admin: 12/01/17 08:34 Dose: 20 meq Promethazine HCl (Phenergan (Ll)) 12.5 mg IV Q6H PRN PRN PRN Reason: NAUSEA/VOMITING Last Admin: 11/30/17 22:22 Dose: 12.5 mg Rizatriptan Benzoate (Maxalt) 10 mg PO DAILY PRN PRN Reason: HEADACHE Sertraline HCl (Zoloft) 100 mg PO DAILY [facility] Last Admin: 12/01/17 10:36 Dose: 100 mg Sodium Chloride () 5 - 30 ml IV UD PRN PRN Reason: SALINE FLUSH Last Admin: 12/01/17 06:26 Dose: 10 ml Spironolactone (Aldactone) 25 mg PO BIDLX [facility] Last Admin: 12/01/17 10:35 Dose: 25 mg Topiramate (Trokendi Xr) 50 mg PO QHS [facility] Last Admin: 11/30/17 22:14 Dose: 50 mg Verapamil HCl (Calan Sr) 240 mg PO BID [facility] Last Admin: 12/01/17 10:36 Dose: 240 mg Zolpidem Tartrate (Ambien (Generic)) 5 mg PO QHS PRN PRN PRN Reason: INSOMNIA Assessment/Plan Active and Suspected Problems (Last Updated 12/01/17 @ 10:35 by Pily Watson, EDUCATION TEACHER-C) Viral URI (Acute) Asthma exacerbation (Acute) Patient is a 37-year-old lady with past medical history significant for asthma/restrictive lung disease presented with progressive shortness of breath 1. Exacerbation of asthma/restrictive lung disease as dictated by respiratory syncytial virus infection: Patient is being admitted to regular nursing floor. She apparently did fail outpatient treatment. Patient started on systemic steroid, bronchodilator therapy, supplemental oxygen with consultation placed to pulmonary medicine case discussed with Dr. Mcclendon. Patient respiratory panel was positive for RSV subsequently placing respiratory precautions 2. Diabetes mellitus type 2 with labile control with episodes of both hypo-and hyperglycemia did continue with home regimen in addition to Accu-Cheks before meals and at bedtime with sliding scale coverage 3. Hypertension-blood pressure controlled, home medications continued with dose adjustment as needed 4. Morbid obesity with BMI of 39.2: Weight loss advised 3. History of open heart surgery for congenital heart disease for which patient apparently underwent correction for vascular abnormalities involving the heart (details not available) next 6. Depression with anxiety: Patient is on SSRI 7. Chronic diastolic congestive heart failure patient is on Lasix as well as Aldactone 8. DVT prophylaxis SC Lovenox
--- NOTE | 2017-12-01 11:19 | PN_ITS ---
Patient Problems: Active and Suspected Problems (Last Updated 12/01/17 @ 10:35 by Pily Watson , FACILITIES ADMINISTRATOR-C) Viral URI (Acute) Asthma exacerbation (Acute) Subjective: Patient is a 37-year-old lady with past medical history significant for asthma/ restrictive lung disease presented with progressive shortness of breath Objective: GENERAL: cooperative HEENT: Clear conjunctiva, NECK; supple, normal thyroid, CHEST: Diminished to auscultation bilaterally, with wheezes more pronounced on the right lung HEART: Regular S1 S2, no audible murmurs ABDOMEN: soft, non-tender, normoactive bowel sounds, RECTAL: deferred EXTREMITIES: No edema, no clubbing, no cyanosis. HEELER MACHINE: Awake,no lateralizing signs. SKIN: No lesions no erythema, Vitals/I&O's: Vital Signs Temp Pulse Resp BP Pulse Ox 98.6 F 90 16 145/75 H 96 12/01/17 10:20 12/01/17 10:34 12/01/17 10:20 12/01/17 10:20 12/01/17 10:20 Oxygen Flow Rate 3 Oxygen Delivery Method Nasal Cannula Weight: 120.474 kg Body Mass Index (BMI) 39.2 Intake and Output for Last 24 Hours 11/29/17 11/30/17 12/01/17 23:59 23:59 23:59 Intake Total 721 / 721 444 / 444 Balance 721 / 721 444 / 444 Microbiology Past 72 Hours 11/30/17 11:20 Mucosa - Nose Respiratory Panel (PCR) - Final RSV B 11/30/17 13:35 Sputum, Expectorated/Coughed Gram Stain - Final 11/30/17 11:20 Mucosa - Nose Influenza Types A,B Direct FA (ANNELISE) - Final Laboratory Results 11/30/17 10:55: D-Dimer Quant (PE/DVT) < 0.27 L 11/30/17 10:55: B-Natriuretic Peptide 50.5 11/30/17 10:55: WBC 9.5, RBC 4.71, Hgb 13.0, Hct 39.2, MCV 83.2, MCH 27.6, MCHC 33.2, RDW 13.9, RDW Differential 42.0, Plt Count 233, MPV 9.6, Immature Gran % ( Auto) 0.400, Neut % (Auto) 59.2, Lymph % (Auto) 30.9, Price % (Auto) 8.7, Eos % ( Auto) 0.5, Baso % (Auto) 0.3, Absolute Neuts (auto) 5.6, Absolute Lymphs (auto) 2.92, Total Counted Not Reportable 11/30/17 10:55: Sodium 141, Potassium 3.4 L, Chloride 107, Carbon Dioxide 26.0, Anion Gap 8, BUN 12, Creatinine 0.76, Estim Creat Clear Calc 107.97, Est GFR ( MDRD) Af Amer 112, Est GFR (MDRD) Non-Af 92, BUN/Creatinine Ratio 15.9, Glucose 89, Calcium 8.3 L, Magnesium 2.1 11/30/17 11:04: POC Glucose 85 11/30/17 16:12: POC Glucose 96 11/30/17 22:13: POC Glucose 172 H 12/01/17 06:53: POC Glucose 200 H Current Medications Acetaminophen (Tylenol) 650 mg PO Q6H PRN PRN PRN Reason: Mild Pain (scale 0-3)/T>100.7 Al Hydroxide/Mg Hydroxide (Mylanta Ii) 30 ml PO Q6H PRN PRN PRN Reason: Gastric burning Albuterol Sulfate (Ventolin Aerosols) 2.5 mg INHALATION Q2H PRN PRN PRN Reason: SHORTNESS OF BREATH Albuterol/Ipratropium (Duoneb) 3 ml INHALATION Q4H.RT [facility] Last Admin: 12/01/17 10:45 Dose: 3 ml Baclofen (Lioresal) 20 mg PO TID PRN PRN Reason: PAIN Benzonatate (Tessalon Perle) 100 mg PO TID PRN PRN Reason: cough Last Admin: 11/30/17 17:31 Dose: 100 mg Dextrose (D50w Syringe) 0 gm IV X1 PRN; Protocol PRN Reason: Hypoglycemia Dicyclomine HCl (Bentyl) 10 mg PO ACHS [facility] Last Admin: 12/01/17 10:35 Dose: 10 mg Enoxaparin Sodium (Lovenox) 40 mg SC DAILY@1000 BELLE Last Admin: 12/01/17 10:36 Dose: 40 mg Fluticasone Propionate (Flonase Nasal [place]) 2 spray NASAL DAILY PRN PRN Reason: ALLERGIES Furosemide (Lasix) 20 mg PO BIDLX [facility] Last Admin: 12/01/17 10:36 Dose: 20 mg Gabapentin (Neurontin) 100 mg PO TIDCM [facility] Last Admin: 12/01/17 08:34 Dose: 100 mg Glucagon () 1 mg IM .X1 PRN PRN Reason: Hypoglycemia Guaifenesin (Mucinex) 1,200 mg PO BID [facility] Last Admin: 12/01/17 10:36 Dose: 1,200 mg Insulin Aspart (Novolog Flexpen (Bkc)) 0 units SC ACHS [facility] PRN Reason: Protocol Last Admin: 12/01/17 08:34 Dose: 4 units Magnesium Hydroxide (Milk Of Magnesia) 30 ml PO DAILY PRN PRN PRN Reason: Constipation Methylprednisolone (Solu-Medrol) 40 mg IV Q6 [facility] Last Admin: 12/01/17 06:27 Dose: 40 mg Metolazone (Zaroxolyn) 5 mg PO Q7D [facility] Metoprolol Succinate (Toprol Xl (Beta Vishal)) 200 mg PO DAILY [facility] Last Admin: 12/01/17 10:34 Dose: 200 mg Montelukast Sodium (Singulair) 10 mg PO QHS [facility] Last Admin: 11/30/17 22:14 Dose: 10 mg [facility]ivit[facility] ([facility]) [facility] Last Admin: 12/01/17 08:34 Dose: 1 tablet Non-Formulary Medication (Dulaglutide) 1.5 mg SQ QWEEK [facility] Ondansetron HCl (Zofran) 4 mg IV Q8H PRN PRN PRN Reason: NAUSEA Oxycodone HCl (Oxyir) 5 mg PO Q4H PRN PRN PRN Reason: Moderate Pain (pain scale 4-5) Last Admin: 12/01/17 10:35 Dose: 5 mg Pantoprazole Sodium (Protonix) 40 mg PO DAILY [facility] Last Admin: 12/01/17 10:34 Dose: 40 mg Potassium Chloride (K-Dur) [facility] Last Admin: 12/01/17 08:34 Dose: 20 meq Promethazine HCl (Phenergan (Ll)) 12.5 mg IV Q6H PRN PRN PRN Reason: NAUSEA/VOMITING Last Admin: 11/30/17 22:22 Dose: 12.5 mg Rizatriptan Benzoate (Maxalt) 10 mg PO DAILY PRN PRN Reason: HEADACHE Sertraline HCl (Zoloft) 100 mg PO DAILY [facility] Last Admin: 12/01/17 10:36 Dose: 100 mg Sodium Chloride () 5 - 30 ml IV UD PRN PRN Reason: SALINE FLUSH Last Admin: 12/01/17 06:26 Dose: 10 ml Spironolactone (Aldactone) 25 mg PO BIDLX [facility] Last Admin: 12/01/17 10:35 Dose: 25 mg Topiramate (Trokendi Xr) 50 mg PO QHS [facility] Last Admin: 11/30/17 22:14 Dose: 50 mg Verapamil HCl (Calan Sr) 240 mg PO BID [facility] Last Admin: 12/01/17 10:36 Dose: 240 mg Zolpidem Tartrate (Ambien (Generic)) 5 mg PO QHS PRN PRN PRN Reason: INSOMNIA Assessment/Plan Active and Suspected Problems (Last Updated 12/01/17 @ 10:35 by Pily Watson , FACILITIES ADMINISTRATOR-C) Viral URI (Acute) Asthma exacerbation (Acute) Patient is a 37-year-old lady with past medical history significant for asthma/ restrictive lung disease presented with progressive shortness of breath 1. Exacerbation of asthma/restrictive lung disease as dictated by respiratory syncytial virus infection: Patient is being admitted to regular nursing floor. She apparently did fail outpatient treatment. Patient started on systemic steroid, bronchodilator therapy, supplemental oxygen with consultation placed to pulmonary medicine case discussed with Dr. Mcclendon. Patient respiratory panel was positive for RSV subsequently placing respiratory precautions 2. Diabetes mellitus type 2 with labile control with episodes of both hypo-and hyperglycemia did continue with home regimen in addition to Accu-Cheks before meals and at bedtime with sliding scale coverage 3. Hypertension-blood pressure controlled, home medications continued with dose adjustment as needed 4. Morbid obesity with BMI of 39.2: Weight loss advised 3. History of open heart surgery for congenital heart disease for which patient apparently underwent correction for vascular abnormalities involving the heart (details not available) next 6. Depression with anxiety: Patient is on SSRI 7. Chronic diastolic congestive heart failure patient is on Lasix as well as Aldactone 8. DVT prophylaxis SC Lovenox
[2017-12-01] MEDS: Ondansetron 4 MG/2 ML Vial IV (11:24)
[2017-12-01 11:41] LABS: Bedside Glucose 248 mg/dL (70-110)
[2017-12-01] MEDS: DiphenhydrAMINE 25 MG Capsule PO (16:20)
[2017-12-01 16:36] LABS: Bedside Glucose 232 mg/dL (70-110)
[2017-12-01] MEDS: Montelukast 10 MG Tablet PO (21:29)
[2017-12-01] MEDS: TOPIRAMATE 50 MG PO (21:30)
[2017-12-01 21:41] LABS: Bedside Glucose 309 mg/dL (70-110)
[2017-12-01] MEDS: guaiFENesin/Codeine 5 ML UDC 10 ML PO (23:12)
[2017-12-02] VITALS (12 sets, daily range): BP systolic 123–150; BP diastolic 72–81; PULSE 71–87; RESP 16–28; TEMP 36.1–36.8; O2SAT 94–98
[2017-12-02] MEDS: 0.9% NaCl Peripheral Flush Adult/Peds IV ×6 (06:50→23:50)
[2017-12-02] MEDS: Ipratropium/Albuterol Sulfate 3 ML AMPUL.NEB INHALATION ×5 (07:01→22:54)
--- NOTE | 2017-12-02 07:03 | EKG12_ITS ---
Test Reason : CP Blood Pressure : / mmHG Vent. Rate : 068 BPM Atrial Rate : 068 BPM P-R Int : 148 ms QRS Dur : 074 ms QT Int : 412 ms P-R-T Axes : 020 076 048 degrees QTc Int : 438 ms Normal sinus rhythm Normal ECG When compared with ECG of 03-DEC-2016 20:15, No significant change was found Confirmed by YESENIA DIAZ, ROMEL ([id number]), publishing editor STANISLAW COLEMAN ([id number] on 12/08/2017 1:18:51 PM Referred By: George Gonzales Confirmed By:ROMEL PATTERSON MD
[2017-12-02] MEDS: Dicyclomine 10 MG Capsule PO ×4 (07:10→21:51)
[2017-12-02 07:26] LABS: Bedside Glucose 191 mg/dL (70-110)
[2017-12-02] MEDS: Gabapentin 100 MG Capsule PO ×3 (08:32→16:40)
[2017-12-02] MEDS: Multivitamins,Therapeutic Tablet 1 TABLET PO (08:32)
--- NOTE | 2017-12-02 09:05 | PCM.PROGNOTE ---
Patient Problems: Active and Suspected Problems (Last Updated 12/01/17 @ 10:35 by Pliy Watson, TEMPLATE FITTER-C) Viral URI (Acute) Asthma exacerbation (Acute) Subjective: Patient was seen and examined. She remains afebrile and hemodynamically stable. Complaining of persistent, nonproductive cough. She has been having some reflux. She took Robitussin-AC last night and slept much better. Patient maintaining appropriate saturations on her baseline oxygen requirement of 3 L per nasal cannula. Objective: Recent culture data reviewed. Respiratory panel showing RSV B, influenza negative. Respiratory culture is pending with Gram stain showing 3+ gram-positive cocci, 2+ gram-negative rods, and 1+ WBCs. Blood sugar elevations 200-300's, patient on sliding scale NovoLog. - Physical Exam General: Alert, Oriented x3, Cooperative, No apparent distress, Well developed, Well nourished HEENT: Atraumatic, Normocephalic Oral: Moist Mucosa, No Gingival or Mucosal Lesions/ Ulcerations Neck: Supple, No Nodes, Trachea Midline Lungs: Diminished, - - scattered expiratory wheeze, improved Cardiovascular: Regular rate, Regular Rhythm, Normal S1, Normal S2, No murmurs, No rub noted, No Gallop Abdomen: Bowel Sounds Present, Soft, Non Tender, Non-Distended, Obese Extremities: No clubbing, No cyanosis, No edema Skin: No rashes, No breakdown Musculoskeletal: No Tenderness to Palpation of Joints or Extremities Lymphatic: No Cervical, Supraclavicular, or Inguinal Adenopathy Neurological: Cranial nerves II-XII grossly intact, Neuro grossly intact, Motor Exam 5/5 strength throughout Psych/Mental Status: - - talkative, Alert and oriented to time, place, person, mood and affect Vital Signs Temp Pulse Resp BP Pulse Ox 97.9 F 79 20 H 131/73 H 97 12/02/17 07:11 12/02/17 07:42 12/02/17 07:42 12/02/17 07:11 12/02/17 07:42 Oxygen Flow Rate 3 Oxygen Delivery Method Nasal Cannula Weight: 265 lb 9.6 oz Body Mass Index (BMI) 39.2 Intake and Output for Last 24 Hours 11/30/17 12/01/17 12/02/17 23:59 23:59 23:59 Intake Total 721 / 721 2176 / 2176 550 / 550 Output Total 600 / 600 Balance 721 / 721 1576 / 1576 550 / 550 Microbiology Past 72 Hours 11/30/17 13:35 Gram Stain - Final Sputum, Expectorated/Coughed Respiratory Culture - Preliminary Appears to be normal respiratory tolu. Further studies to follow. 11/30/17 11:20 Respiratory Panel (PCR) - Final Mucosa - Nose RSV B 11/30/17 11:20 Influenza Types A,B Direct FA (ANNELISE) - Final Mucosa - Nose POC Glucose 12/02/17 12/01/17 12/01/17 06:44 21:04 16:17 POC Glucose 191 H 309 H 232 H 12/01/17 11:20 POC Glucose 248 H Assessment/Plan Active and Suspected Problems (Last Updated 12/01/17 @ 10:35 by Pily Watson, TEMPLATE FITTER-C) Viral URI (Acute) Asthma exacerbation (Acute) RECOMMENDATIONS 1. Wean oxygen supplementation to keep saturations greater than 90%. 2. Encourage incentive spirometer 3. Increase activity as tolerated, mobilize today 4. Continue aerosols 5. Transition to oral steroids with taper at d/c 6. Continue CPAP at night with 3 L oxygen bleed 7. Walking oximetry prior to discharge 8. Follow up in pulmonary clinic with TEMPLATE FITTER within 2 weeks of discharge IMPRESSIONS 1. Asthma exacerbation secondary to RSV B (moderate persistent) Per PFTs, patient does not have COPD. Patient with outpatient treatment failure on 2 rounds of Z-Darian and steroids. She has been afebrile with no leukocytosis. Respiratory panel showing RSV B and sputum culture with normal respiratory tolu. Influenza negative. D-dimer and BNP normal. Patient has significant hernia that could be exacerbating her asthma. She is on baseline PPI at home. Transition to oral steroids today with taper at discharge. Antibiotics discontinued. Increase activity as tolerated and continue bronchodilators. Continue Flonase and Singulair. Advised patient she may have a prolonged cough/illness secondary to her pre-existing lung condition. She can follow closely with TEMPLATE FITTER in pulmonary office. 2. Chronic respiratory failure with hypoxia Patient wears 3 L oxygen at all times, despite 6 minute walking oximetry showing she needed only with exertion. He does have significant exercise intolerance. This may be partially due to obesity hypoventilation syndrome. Wean oxygen supplementation to keep saturations greater than 90%. Walking oximetry prior to discharge to reassess exertional need requirements. 3. Diabetes mellitus/hypertension/morbid obesity/history of chest surgery/hypokalemia/congenital diaphragmatic hernia/RICH Complicates care, management, recovery, and prognosis. Adjust insulin as necessary for better glucose control. Likely okay to continue her home medications otherwise. Continue nocturnal PAP therapy with home settings. This note was generated with [employer] dictation software. It may contain incorrect words, spelling, and punctuation that were not noted in checking the note before signing.
[2017-12-02] MEDS: guaiFENesin/Codeine 5 ML UDC 10 ML PO ×3 (09:27→23:49)
--- NOTE | 2017-12-02 09:40 | PN_ITS ---
Patient Problems: Active and Suspected Problems (Last Updated 12/01/17 @ 10:35 by Pily Watson , NURSE LDR-C) Viral URI (Acute) Asthma exacerbation (Acute) Subjective: Patient was seen and examined. She remains afebrile and hemodynamically stable. Complaining of persistent, nonproductive cough. She has been having some reflux. She took Robitussin-AC last night and slept much better. Patient maintaining appropriate saturations on her baseline oxygen requirement of 3 L per nasal cannula. Objective: Recent culture data reviewed. Respiratory panel showing RSV B, influenza negative. Respiratory culture is pending with Gram stain showing 3+ gram- positive cocci, 2+ gram-negative rods, and 1+ WBCs. Blood sugar elevations 200- 300's, patient on sliding scale NovoLog. - Physical Exam General: Alert, Oriented x3, Cooperative, No apparent distress, Well developed, Well nourished HEENT: Atraumatic, Normocephalic Oral: Moist Mucosa, No Gingival or Mucosal Lesions/ Ulcerations Neck: Supple, No Nodes, Trachea Midline Lungs: Diminished, - - scattered expiratory wheeze, improved Cardiovascular: Regular rate, Regular Rhythm, Normal S1, Normal S2, No murmurs, No rub noted, No Gallop Abdomen: Bowel Sounds Present, Soft, Non Tender, Non-Distended, Obese Extremities: No clubbing, No cyanosis, No edema Skin: No rashes, No breakdown Musculoskeletal: No Tenderness to Palpation of Joints or Extremities Lymphatic: No Cervical, Supraclavicular, or Inguinal Adenopathy Neurological: Cranial nerves II-XII grossly intact, Neuro grossly intact, Motor Exam 5/5 strength throughout Psych/Mental Status: - - talkative, Alert and oriented to time, place, person, mood and affect Vital Signs Temp Pulse Resp BP Pulse Ox 97.9 F 79 20 H 131/73 H 97 12/02/17 07:11 12/02/17 07:42 12/02/17 07:42 12/02/17 07:11 12/02/17 07:42 Oxygen Flow Rate 3 Oxygen Delivery Method Nasal Cannula Weight: 265 lb 9.6 oz Body Mass Index (BMI) 39.2 Intake and Output for Last 24 Hours 11/30/17 12/01/17 12/02/17 23:59 23:59 23:59 Intake Total 721 / 721 2176 / 2176 550 / 550 Output Total 600 / 600 Balance 721 / 721 1576 / 1576 550 / 550 Microbiology Past 72 Hours 11/30/17 13:35 Gram Stain - Final Sputum, Expectorated/Coughed Respiratory Culture - Preliminary Appears to be normal respiratory tolu. Further studies to follow. 11/30/17 11:20 Respiratory Panel (PCR) - Final Mucosa - Nose RSV B 11/30/17 11:20 Influenza Types A,B Direct FA (ANNELISE) - Final Mucosa - Nose POC Glucose 12/02/17 12/01/17 12/01/17 06:44 21:04 16:17 POC Glucose 191 H 309 H 232 H 12/01/17 11:20 POC Glucose 248 H Assessment/Plan Active and Suspected Problems (Last Updated 12/01/17 @ 10:35 by Pily Watson , NURSE LDR-C) Viral URI (Acute) Asthma exacerbation (Acute) RECOMMENDATIONS 1. Wean oxygen supplementation to keep saturations greater than 90%. 2. Encourage incentive spirometer 3. Increase activity as tolerated, mobilize today 4. Continue aerosols 5. Transition to oral steroids with taper at d/c 6. Continue CPAP at night with 3 L oxygen bleed 7. Walking oximetry prior to discharge 8. Follow up in pulmonary clinic with NURSE LDR within 2 weeks of discharge IMPRESSIONS 1. Asthma exacerbation secondary to RSV B (moderate persistent) Per PFTs, patient does not have COPD. Patient with outpatient treatment failure on 2 rounds of Z-Darian and steroids. She has been afebrile with no leukocytosis. Respiratory panel showing RSV B and sputum culture with normal respiratory tolu. Influenza negative. D-dimer and BNP normal. Patient has significant hernia that could be exacerbating her asthma. She is on baseline PPI at home. Transition to oral steroids today with taper at discharge. Antibiotics discontinued. Increase activity as tolerated and continue bronchodilators. Continue Flonase and Singulair. Advised patient she may have a prolonged cough/illness secondary to her pre-existing lung condition. She can follow closely with NURSE LDR in pulmonary office. 2. Chronic respiratory failure with hypoxia Patient wears 3 L oxygen at all times, despite 6 minute walking oximetry showing she needed only with exertion. He does have significant exercise intolerance. This may be partially due to obesity hypoventilation syndrome. Wean oxygen supplementation to keep saturations greater than 90%. Walking oximetry prior to discharge to reassess exertional need requirements. 3. Diabetes mellitus/hypertension/morbid obesity/history of chest surgery/ hypokalemia/congenital diaphragmatic hernia/RICH Complicates care, management, recovery, and prognosis. Adjust insulin as necessary for better glucose control. Likely okay to continue her home medications otherwise. Continue nocturnal PAP therapy with home settings. This note was generated with [facility] dictation software. It may contain incorrect words, spelling, and punctuation that were not noted in checking the note before signing.
[2017-12-02] MEDS: Enoxaparin 40 MG/0.4 ML Syringe SC (09:50)
[2017-12-02] MEDS: Furosemide 20 MG Tablet PO ×2 (09:50→16:40)
[2017-12-02] MEDS: Metoprolol(XL)Succ 200 MG Tablet PO (09:50)
[2017-12-02] MEDS: Verapamil SR 240 MG Tablet PO ×2 (09:50→21:51)
[2017-12-02] MEDS: Spironolactone 25 MG Tablet PO ×2 (09:50→16:40)
[2017-12-02] MEDS: Sertraline 100 MG Tablet PO (09:50)
[2017-12-02] MEDS: Ondansetron 4 MG/2 ML Vial IV (09:50)
[2017-12-02] MEDS: guaiFENesin 1,200 MG Tablet 1200 MG PO ×2 (09:51→21:52)
[2017-12-02] MEDS: Pantoprazole Sodium 40 MG Tablet PO ×2 (09:53→21:51)
[2017-12-02] MEDS: oxyCODONE 5 MG Tablet PO ×2 (09:58→20:05)
--- NOTE | 2017-12-02 10:53 | CT_ITS ---
STUDY: CT CHEST WITHOUT CONTRAST REASON FOR EXAM: Female, 37 years old. Wheezing and cough. History of asthma. RADIATION DOSAGE (If Supplied By Facility): CTDIvol = ( 20.15 ) mGy, DLP = ( 687.23 ) mGycm TECHNIQUE: Transaxial imaging was performed without the administration of intravenous contrast material. Multiplanar coronal and sagittal images were reformatted. Individualized dose optimization techniques were used for this CT. COMPARISON: Comparison is made with prior examination dated April 20, 2016. FINDINGS: There is elevation of the left hemidiaphragm. Increased markings at the left lung base suggestive of scarring and/or atelectasis. Mild increased markings at the right lung base. There is no demonstrated pleural abnormality. Normal heart and pericardium. There are multiple small lymph nodes within the mediastinum, which are normal in size and morphology most compatible with reactive lymph hyperplasia. Normal hilar regions. Normal unenhanced pulmonary arteries. Normal aorta arch and descending thoracic aorta. There are multi-level degenerative changes of the thoracic spine. There is no demonstrated abnormality of the visualized upper abdomen. CT/Chest without Contrast IMPRESSION: Elevation of the left hemidiaphragm with underlying atelectasis and/or scarring. Electronically Signed: Mil Spain MD at 14:56 EST Tel [phone], Service support ,
--- NOTE | 2017-12-02 10:57 | PCM.PN.HOSP ---
Patient Problems: Active and Suspected Problems (Last Updated 12/01/17 @ 10:35 by Pily Watson, CHAIR POST MACHINE OPERATOR-C) Viral URI (Acute) Asthma exacerbation (Acute) Subjective: Seen complains of persistent cough has significant bronchospasm. Patient started on doxycycline and ordered high resolution CT of the chest Objective: GENERAL: cooperative HEENT: Clear conjunctiva, NECK; supple, normal thyroid, CHEST: Diminished to auscultation bilaterally, with wheezes more pronounced on the right lung HEART: Regular S1 S2, no audible murmurs ABDOMEN: soft, non-tender, normoactive bowel sounds, RECTAL: deferred EXTREMITIES: No edema, no clubbing, no cyanosis. JUKE BOX SERVICER: Awake,no lateralizing signs. SKIN: No lesions no erythema, Vitals/I&O's: Vital Signs Temp Pulse Resp BP Pulse Ox 97.8 F 80 16 150/80 H 97 12/02/17 09:10 12/02/17 09:50 12/02/17 09:10 12/02/17 09:10 12/02/17 09:10 Oxygen Flow Rate 3 Oxygen Delivery Method Nasal Cannula Weight: 120.474 kg Body Mass Index (BMI) 39.2 Intake and Output for Last 24 Hours 11/30/17 12/01/17 12/02/17 23:59 23:59 23:59 Intake Total 721 / 721 2176 / 2176 550 / 550 Output Total 600 / 600 Balance 721 / 721 1576 / 1576 550 / 550 Microbiology Past 72 Hours 11/30/17 13:35 Sputum, Expectorated/Coughed Gram Stain - Final 11/30/17 13:35 Sputum, Expectorated/Coughed Respiratory Culture - Preliminary 11/30/17 11:20 Mucosa - Nose Respiratory Panel (PCR) - Final RSV B 11/30/17 11:20 Mucosa - Nose Influenza Types A,B Direct FA (ANNELISE) - Final Laboratory Results 12/01/17 11:20: POC Glucose 248 H 12/01/17 16:17: POC Glucose 232 H 12/01/17 21:04: POC Glucose 309 H 12/02/17 06:44: POC Glucose 191 H Current Medications Acetaminophen (Tylenol) 650 mg PO Q6H PRN PRN PRN Reason: Mild Pain (scale 0-3)/T>100.7 Al Hydroxide/Mg Hydroxide (Mylanta Ii) 30 ml PO Q6H PRN PRN PRN Reason: Gastric burning Albuterol Sulfate (Ventolin Aerosols) 2.5 mg INHALATION Q2H PRN PRN PRN Reason: SHORTNESS OF BREATH Albuterol/Ipratropium (Duoneb) 3 ml INHALATION Q4H.RT [facility] Last Admin: 12/02/17 10:41 Dose: 3 ml Baclofen (Lioresal) 20 mg PO TID PRN PRN Reason: PAIN Benzonatate (Tessalon Perle) 100 mg PO TID PRN PRN Reason: cough Last Admin: 11/30/17 17:31 Dose: 100 mg Dextrose (D50w Syringe) 0 gm IV X1 PRN; Protocol PRN Reason: Hypoglycemia Dicyclomine HCl (Bentyl) 10 mg PO ACHS [facility] Last Admin: 12/02/17 07:10 Dose: 10 mg Enoxaparin Sodium (Lovenox) 40 mg SC DAILY@1000 [facility] Last Admin: 12/02/17 09:50 Dose: 40 mg Fluticasone Propionate (Flonase Nasal [place]) 2 spray NASAL DAILY PRN PRN Reason: ALLERGIES Furosemide (Lasix) 20 mg PO BIDLX [facility] Last Admin: 12/02/17 09:50 Dose: 20 mg Gabapentin (Neurontin) 100 mg PO TIDCM [facility] Last Admin: 12/02/17 08:32 Dose: 100 mg Glucagon () 1 mg IM .X1 PRN PRN Reason: Hypoglycemia Guaifenesin (Mucinex) 1,200 mg PO BID [facility] Last Admin: 12/02/17 09:51 Dose: 1,200 mg Guaifenesin/Codeine Phosphate (Robitussin Ac) 10 ml PO Q6H PRN PRN PRN Reason: COUGH Last Admin: 12/02/17 09:27 Dose: 10 ml Insulin Aspart (Novolog Flexpen (Bkc)) 0 units SC [facility] PRN Reason: Protocol Last Admin: 12/02/17 08:32 Dose: 2 units Magnesium Hydroxide (Milk Of Magnesia) 30 ml PO DAILY PRN PRN PRN Reason: Constipation Methylprednisolone (Solu-Medrol) 40 mg IV Q6 [facility] Last Admin: 12/02/17 06:48 Dose: 40 mg Metolazone (Zaroxolyn) 5 mg PO Q7D [facility] Metoprolol Succinate (Toprol Xl (Beta Vishal)) 200 mg PO DAILY [facility] Last Admin: 12/02/17 09:50 Dose: 200 mg Montelukast Sodium (Singulair) 10 mg PO QHS [facility] Last Admin: 12/01/17 21:29 Dose: 10 mg [facility]it[facility] ([facility]) [facility] Last Admin: 12/02/17 08:32 Dose: 1 tablet Non-Formulary Medication (Dulaglutide) 1.5 mg SQ QWEEK [facility] Ondansetron HCl (Zofran) 4 mg IV Q8H PRN PRN PRN Reason: NAUSEA Last Admin: 12/02/17 09:50 Dose: 4 mg Oxycodone HCl (Oxyir) 5 mg PO Q4H PRN PRN PRN Reason: Moderate Pain (pain scale 4-5) Last Admin: 12/02/17 09:58 Dose: 5 mg Pantoprazole Sodium (Protonix) 40 mg PO DAILY [facility] Last Admin: 12/02/17 09:53 Dose: 40 mg Potassium Chlor[facility] (K-Dur) [facility]q [facility] Last Admin: 12/02/17 08:32 Dose: 20 meq Promethazine HCl (Phenergan (Ll)) 12.5 mg IV Q6H PRN PRN PRN Reason: NAUSEA/VOMITING Last Admin: 12/01/17 17:03 Dose: 12.5 mg Rizatriptan Benzoate (Maxalt) 10 mg PO DAILY PRN PRN Reason: HEADACHE Sertraline HCl (Zoloft) 100 mg PO DAILY [facility] Last Admin: 12/02/17 09:50 Dose: 100 mg Sodium Chloride () 5 - 30 ml IV UD PRN PRN Reason: SALINE FLUSH Last Admin: 12/02/17 09:50 Dose: 10 ml Spironolactone (Aldactone) 25 mg PO BIDLX [facility] Last Admin: 12/02/17 09:50 Dose: 25 mg Topiramate (Trokendi Xr) 50 mg PO QHS [facility] Last Admin: 12/01/17 21:30 Dose: 50 mg Verapamil HCl (Calan Sr) 240 mg PO BID [facility] Last Admin: 12/02/17 09:50 Dose: 240 mg Zolpidem Tartrate (Ambien (Generic)) 5 mg PO QHS PRN PRN PRN Reason: INSOMNIA Assessment/Plan Active and Suspected Problems (Last Updated 12/01/17 @ 10:35 by Pily Watson, CLAYTON-C) Viral URI (Acute) Asthma exacerbation (Acute) Patient is a 37-year-old lady with past medical history significant for asthma/restrictive lung disease presented with progressive shortness of breath 1. Exacerbation of asthma/restrictive lung disease as dictated by respiratory syncytial virus infection: Patient is being admitted to regular nursing floor. She apparently did fail outpatient treatment. Patient started on systemic steroid, bronchodilator therapy, supplemental oxygen with consultation placed to pulmonary medicine case discussed with Dr. Mcclendon. Patient respiratory panel was positive for RSV subsequently placing respiratory precautions. Has significant bronchospasm high-resolution CT of the chest ordered for subsequent evaluation empirically placed on doxycycline 2. Diabetes mellitus type 2 with labile control with episodes of both hypo-and hyperglycemia did continue with home regimen in addition to Accu-Cheks before meals and at bedtime with sliding scale coverage 3. Hypertension-blood pressure controlled, home medications continued with dose adjustment as needed 4. Morbid obesity with BMI of 39.2: Weight loss advised 3. History of open heart surgery for congenital heart disease for which patient apparently underwent correction for vascular abnormalities involving the heart (details not available) next 6. Depression with anxiety: Patient is on SSRI 7. Chronic diastolic congestive heart failure patient is on Lasix as well as Aldactone 8. DVT prophylaxis SC Lovenox Code Visit Inpatient E&M: 77882 Subs Hosp L3
--- NOTE | 2017-12-02 11:27 | CASEMGMT ---
RN PETERSON spoke with patient and she is active with the waiver program. She told PATRICK WINKLER she would like aide services. ALIN called [facility] and let Cindy on the coverage line know patient is in the hospital. SW also told her patient would like home health aides arranged. She said she will follow up with patient. SW then spoke with patient and let her know that SW talked with Darby letting her know she is here and that she would like home health aides. SW also spoke with patient about [facility] and she was interested. ALIN called Tarun with [facility] and made referral as well as put order in computer. ALIN called Darby to let her know patient is not being d/c today. Plan: Home with resumption of waiver services. Her CM is working on setting up aides. A referral was made to [facility]. Anitra HUNT MSW
[2017-12-02 12:00] LABS: Bedside Glucose 199 mg/dL (70-110)
[2017-12-02] MEDS: DULAGLUTIDE 1.5 MG/0.5 ML PEN.INJCTR SQ (13:36)
[2017-12-02 17:01] LABS: Bedside Glucose 249 mg/dL (70-110)
[2017-12-02] MEDS: Benzonatate 100 MG Capsule PO (20:05)
[2017-12-02] MEDS: TOPIRAMATE 50 MG PO (21:51)
[2017-12-02] MEDS: Montelukast 10 MG Tablet PO (21:52)
[2017-12-02 22:16] LABS: Bedside Glucose 290 mg/dL (70-110)
[2017-12-03 03:15] VITALS: PULSE 70; RESP 17
[2017-12-03] MEDS: Ipratropium/Albuterol Sulfate 3 ML AMPUL.NEB INHALATION ×3 (03:15→11:00)
[2017-12-03 04:03] VITALS: BP 140/87; PULSE 74; RESP 20; TEMP 35.9; O2SAT 98
[2017-12-03] MEDS: Dicyclomine 10 MG Capsule PO ×2 (07:02→10:33)
[2017-12-03] MEDS: 0.9% NaCl Peripheral Flush Adult/Peds IV (07:03)
[2017-12-03 07:06] LABS: Bedside Glucose 180 mg/dL (70-110)
[2017-12-03 07:15] VITALS: PULSE 73; RESP 16; O2SAT 98
[2017-12-03] MEDS: Gabapentin 100 MG Capsule PO ×2 (08:06→12:02)
[2017-12-03] MEDS: Multivitamins,Therapeutic Tablet 1 TABLET PO (08:06)
--- NOTE | 2017-12-03 09:36 | DCINST_ITS ---
- Discharge Diagnoses Current Active Problems: Current Active and Chronic Problems (Last Updated 12/01/17 @ 10:35 by Pily Watson NP-C) Restrictive airway disease (Chronic) Diaphragmatic hernia congenital (Chronic) Chronic hypoxemic respiratory failure (Chronic) Obstructive sleep apnea (Chronic) Morbid obesity (Chronic) Viral URI (Acute) Asthma exacerbation (Acute) HTN (hypertension) (Chronic) Type 2 diabetes mellitus (Chronic) You will use the following diet at home:: Calorie/Carbohydrate Controlled ( specify 1200, 1400, etc) - 1800 Discharge Activity: May not drive while taking narcotic pain medications. Allergies/Adverse Reactions: Allergies nabumetone Allergy (Unknown, Verified 11/30/17 08:57) Unknown hydrocodone bitartrate [From [place]] Allergy (Verified 11/30/17 08:57) Itching Penicillins Allergy (Verified 11/30/17 08:57) Swelling Medications to take at Discharge Metoprolol(XL)Succ [Toprol Xl (Beta Vishal)] 200 mg PO DAILY 02/10/14 Escitalopram Oxalate [Lexapro] 5 mg PO DAILY 10/23/15 Metformin HCl [Metformin HCl ER] 1,000 mg PO BID 03/25/16 Montelukast [Singulair] 10 mg PO QHS 04/21/16 Albuterol Aerosols [Ventolin Aerosols] 2.5 mg INHALATION Q4H PRN PRN 12/03/16 Albuterol Inhaler [Ventolin Hfa] 2 puff INHALATION Q4H PRN PRN 12/03/16 Dicyclomine HCl [Bentyl] 10 mg PO ACHS 12/03/16 Ipratropium/Albuterol Sulfate [Duoneb] 3 ml INHALATION Q6H.RT 12/03/16 Metolazone [Zaroxolyn] 5 mg PO Q7D 12/03/16 Multivitamin with Folic Acid [Thera Tablet] 1 ea PO DAILY 12/03/16 Potassium Chloride 20 meq PO DAILY 12/03/16 Sertraline HCl [Zoloft] 100 mg PO DAILY 08/29/17 baclofen 10 mg tablet 20 mg PO TID PRN tab 09/24/17 fluticasone 50 mcg/actuation nasal spray,suspension 2 spray INTRANASAL DAILY PRN 09/24/17 furosemide 40 mg tablet 20 mg PO BID tab 09/24/17 gabapentin 100 mg capsule 100 mg PO TID cap 09/24/17 benzonatate 100 mg capsule 100 mg PO TID PRN #30 cap 11/26/17 Dulaglutide [Trulicity] 1.5 mg SQ QWEEK 11/30/17 Naproxen [Naprosyn] 500 mg PO BID PRN PRN 11/30/17 Omeprazole 20 mg PO DAILY 11/30/17 Pantoprazole Sodium [Protonix] 40 mg PO DAILY 11/30/17 ProMETHAzine [Phenergan] 25 mg PO Q8H PRN PRN 11/30/17 Spironolactone [Aldactone] 25 mg PO BID 11/30/17 Sumatriptan Succinate [Imitrex] 100 mg PO DAILY PRN 11/30/17 Topiramate [Trokendi Xr] 50 mg PO QHS 11/30/17 Verapamil HCl [Verapamil ER] 240 mg PO BID 11/30/17 Doxycycline 100 mg PO BID #14 cap 12/02/17 Guaifenesin [Mucinex] 1,200 mg PO BID #20 tab 12/02/17 Prednisone 10 mg PO UD #30 tab 12/02/17 Guaifenesin [Robitussin] 10 ml PO Q4H PRN PRN #300 ml 12/03/17 Insulin Detemir [Levemir (BKC)] 10 units SC DAILY #5 flexpen 12/03/17 The following prescriptions were given: Doxycycline 100 mg PO BID #14 cap Guaifenesin [Robitussin] 10 ml PO Q4H PRN PRN #300 ml PRN Reason: Cough Guaifenesin [Mucinex] 1,200 mg PO BID #20 tab Insulin Detemir [Levemir (BKC)] 10 units SC DAILY #5 flexpen Prednisone 10 mg PO UD #30 tab Primary Care Physician: Asim Cohn DO [Primary Care Provider] - Proposed Discharge Date: 12/03/17
--- NOTE | 2017-12-03 09:36 | PCM.DC.SUM ---
Discharge Date and Diagnosis - Problem List Patient Problems: Active and Suspected Problems (Last Updated 12/01/17 @ 10:35 by OSMANY Rosario) Viral URI (Acute) Asthma exacerbation (Acute) Date of Admission: 11/30/17 Date of Discharge: 12/03/17 - Primary Discharge Diagnosis Active and Suspected Problems (Last Updated 12/01/17 @ 10:35 by OSMANY Rosario) Viral URI (Acute) Asthma exacerbation (Acute) - Secondary Discharge Diagnosis Chronic Problems (Last Updated 12/01/17 @ 10:35 by OSMANY Rosario) Restrictive airway disease (Chronic) Diaphragmatic hernia congenital (Chronic) Chronic hypoxemic respiratory failure (Chronic) Obstructive sleep apnea (Chronic) Morbid obesity (Chronic) Hypokalemia (Chronic) Asthma (Chronic) HTN (hypertension) (Chronic) Obesity (Chronic) RLQ intramuscular mass (Chronic) hx chest surgery (Chronic) age 8 Type 2 diabetes mellitus (Chronic) Hospital Course and Treatment Imaging Results: Clinical Impression(s) from Imaging Studies Chest CT 12/02/17 10:53 IMPRESSION: Elevation of the left hemidiaphragm with underlying atelectasis and/or scarring. Electronically Signed: Mil Spain MD at 14:56 EST Tel [phone], Service support , Operations: None Summary of Care Provided: Patient is a 37-year-old lady with past medical history significant for asthma/restrictive lung disease presented with progressive shortness of breath 1. Exacerbation of asthma/restrictive lung disease as dictated by respiratory syncytial virus infection: Patient is being admitted to regular nursing floor. She apparently did fail outpatient treatment. Patient started on systemic steroid, bronchodilator therapy, supplemental oxygen with consultation placed to pulmonary medicine case discussed with Dr. Mcclendon. Patient respiratory panel was positive for RSV subsequently placing respiratory precautions. High-resolution CT obtained as part of her evaluation due to persistent bronchospasm only demonstrated atelectasis and scarring. 2. Diabetes mellitus type 2 with labile control with episodes of both hypo-and hyperglycemia did continue with home regimen in addition to Accu-Cheks before meals and at bedtime with sliding scale coverage 3. Hypertension-blood pressure controlled, home medications continued with dose adjustment as needed 4. Morbid obesity with BMI of 39.2: Weight loss advised 3. History of open heart surgery for congenital heart disease for which patient apparently underwent correction for vascular abnormalities involving the heart (details not available) next 6. Depression with anxiety: Patient is on SSRI 7. Chronic diastolic congestive heart failure patient is on Lasix as well as Aldactone 8. DVT prophylaxis SC Lovenox Discharge Diet: 1800 Calorie Control Diet Discharge Activity: May not drive while taking narcotic pain medications. Home Medications: Medications to take at Discharge Metoprolol(XL)Succ [Toprol Xl (Beta Vishal)] 200 mg PO DAILY 02/10/14 Escitalopram Oxalate [Lexapro] 5 mg PO DAILY 10/23/15 Metformin HCl [Metformin HCl ER] 1,000 mg PO BID 03/25/16 Montelukast [Singulair] 10 mg PO QHS 04/21/16 Albuterol Aerosols [Ventolin Aerosols] 2.5 mg INHALATION Q4H PRN PRN 12/03/16 Albuterol Inhaler [Ventolin Hfa] 2 puff INHALATION Q4H PRN PRN 12/03/16 Dicyclomine HCl [Bentyl] 10 mg PO ACHS 12/03/16 Ipratropium/Albuterol Sulfate [Duoneb] 3 ml INHALATION Q6H.RT 12/03/16 Metolazone [Zaroxolyn] 5 mg PO Q7D 12/03/16 Multivitamin with Folic Acid [Thera Tablet] 1 ea PO DAILY 12/03/16 Potassium Chloride 20 meq PO DAILY 12/03/16 Sertraline HCl [Zoloft] 100 mg PO DAILY 08/29/17 baclofen 10 mg tablet 20 mg PO TID PRN tab 09/24/17 fluticasone 50 mcg/actuation nasal spray,suspension 2 spray INTRANASAL DAILY PRN 09/24/17 furosemide 40 mg tablet 20 mg PO BID tab 09/24/17 gabapentin 100 mg capsule 100 mg PO TID cap 09/24/17 benzonatate 100 mg capsule 100 mg PO TID PRN #30 cap 11/26/17 Dulaglutide [Trulicity] 1.5 mg SQ QWEEK 11/30/17 Naproxen [Naprosyn] 500 mg PO BID PRN PRN 11/30/17 Omeprazole 20 mg PO DAILY 11/30/17 Pantoprazole Sodium [Protonix] 40 mg PO DAILY 11/30/17 ProMETHAzine [Phenergan] 25 mg PO Q8H PRN PRN 11/30/17 Spironolactone [Aldactone] 25 mg PO BID 11/30/17 Sumatriptan Succinate [Imitrex] 100 mg PO DAILY PRN 11/30/17 Topiramate [Trokendi Xr] 50 mg PO QHS 11/30/17 Verapamil HCl [Verapamil ER] 240 mg PO BID 11/30/17 Doxycycline 100 mg PO BID #14 cap 12/02/17 Guaifenesin [Mucinex] 1,200 mg PO BID #20 tab 12/02/17 Prednisone 10 mg PO UD #30 tab 12/02/17 Guaifenesin [Robitussin] 10 ml PO Q4H PRN PRN #300 ml 12/03/17 Insulin Detemir [Levemir (BKC)] 10 units SC DAILY #5 flexpen 12/03/17 Following Prescrptions Were Given to Patient: Doxycycline 100 mg PO BID #14 cap Guaifenesin [Robitussin] 10 ml PO Q4H PRN PRN #300 ml PRN Reason: Cough Guaifenesin [Mucinex] 1,200 mg PO BID #20 tab Insulin Detemir [Levemir (BKC)] 10 units SC DAILY #5 flexpen Prednisone 10 mg PO UD #30 tab Primary Care Physician: Asim Cohn DO [Primary Care Provider] - Disposition: Home with Home Health Minutes spent on discharge:: 35 Patient Condition:: Stable Meaningful Use Info Meaningful Use Diagnoses (Choose all that apply): None applicable Code Visit Inpatient E&M: 42220 Disch Hosp
--- NOTE | 2017-12-03 09:37 | PCM.PROGNOTE ---
Patient Problems: Active and Suspected Problems (Last Updated 12/01/17 @ 10:35 by Pily Watson, CLAYTON-C) Viral URI (Acute) Asthma exacerbation (Acute) Subjective: The patient was seen and examined. She is sitting up in chair conversing without any dyspnea. Remains afebrile and hemodynamically stable. Maintaining appropriate saturations on 3 L of oxygen. Still complaining of a persistent cough, however this has improved. Objective: No new lab or culture data to review. Respiratory panel showing RSV B, influenza negative. Respiratory culture is pending with Gram stain showing 3+ gram-positive cocci, 2+ gram-negative rods, and 1+ WBCs. - Physical Exam General: Alert, Oriented x3, Cooperative, No apparent distress, Well developed, Well nourished, - - Talkative, no conversational dyspnea HEENT: Atraumatic, Normocephalic Oral: Moist Mucosa, No Gingival or Mucosal Lesions/ Ulcerations Neck: Supple, No Nodes, Trachea Midline Lungs: Clear to auscultation, Diminished Cardiovascular: Regular rate, Regular Rhythm, Normal S1, Normal S2, No murmurs Abdomen: Bowel Sounds Present, Soft, Non Tender, Obese, Hernia Extremities: No clubbing, No cyanosis, No edema Skin: No rashes, No breakdown Musculoskeletal: No Tenderness to Palpation of Joints or Extremities Lymphatic: No Cervical, Supraclavicular, or Inguinal Adenopathy Neurological: Neuro grossly intact Psych/Mental Status: Alert and oriented to time, place, person, mood and affect Vital Signs Temp Pulse Resp BP Pulse Ox 96.6 F L 73 16 140/87 H 98 12/03/17 04:03 12/03/17 07:15 12/03/17 07:15 12/03/17 04:03 12/03/17 07:15 Oxygen Flow Rate 3 Oxygen Delivery Method Nasal Cannula Weight: 264 lb 8.875 oz Body Mass Index (BMI) 39.2 Intake and Output for Last 24 Hours 12/01/17 12/02/17 12/03/17 23:59 23:59 23:59 Intake Total 2176 / 2176 1460 / 1460 150 / 150 Output Total 600 / 600 1300 / 1300 200 / 200 Balance 1576 / 1576 160 / 160 -50 / -50 Microbiology Past 72 Hours 11/30/17 13:35 Gram Stain - Final Sputum, Expectorated/Coughed Respiratory Culture - Final 11/30/17 11:20 Respiratory Panel (PCR) - Final Mucosa - Nose RSV B 11/30/17 11:20 Influenza Types A,B Direct FA (ANNELISE) - Final Mucosa - Nose POC Glucose 12/03/17 12/02/17 12/02/17 06:49 21:46 16:39 POC Glucose 180 H 290 H 249 H 12/02/17 11:43 POC Glucose 199 H Assessment/Plan Active and Suspected Problems (Last Updated 12/01/17 @ 10:35 by Pily Watson, HYDRAULIC PRESS SERVICER-C) Viral URI (Acute) Asthma exacerbation (Acute) RECOMMENDATIONS 1. Wean oxygen supplementation to keep saturations greater than 90%. 2. Encourage incentive spirometer 3. Increase activity as tolerated, mobilize 4. Continue aerosols 5. Continue oral steroids with taper at d/c 6. Continue CPAP at night with 3 L oxygen bleed 7. Walking oximetry prior to discharge 8. Follow up in pulmonary clinic with HYDRAULIC PRESS SERVICER within 2 weeks of discharge 9. Consider follow up soon with [facility] for possible hernia surgery 10. Okay to discharge from pulmonary standpoint IMPRESSIONS 1. Asthma exacerbation secondary to RSV B (moderate persistent) Per PFTs, patient does not have COPD. Patient with outpatient treatment failure on 2 rounds of Z-Darian and steroids. She has been afebrile with no leukocytosis. Respiratory panel showing RSV B and sputum culture with normal respiratory tolu. Influenza negative. D-dimer and BNP normal. Patient has significant hernia that could be exacerbating her asthma. She is on baseline PPI at home. Transition to oral steroids today with taper at discharge. Antibiotics discontinued. Increase activity as tolerated and continue bronchodilators. Continue Flonase and Singulair. Advised patient she may have a prolonged cough/illness secondary to her pre-existing lung condition. She can follow closely with HYDRAULIC PRESS SERVICER in pulmonary office. 2. Chronic respiratory failure with hypoxia Patient wears 3 L oxygen at all times, despite 6 minute walking oximetry showing she needed only with exertion. He does have significant exercise intolerance. This may be partially due to obesity hypoventilation syndrome. Wean oxygen supplementation to keep saturations greater than 90%. Walking oximetry prior to discharge to reassess exertional need requirements. 3. Diabetes mellitus/hypertension/morbid obesity/history of chest surgery/hypokalemia/congenital diaphragmatic hernia/RICH Complicates care, management, recovery, and prognosis. Adjust insulin as necessary for better glucose control. Likely okay to continue her home medications otherwise. Continue nocturnal PAP therapy with home settings. This note was generated with [employer] dictation software. It may contain incorrect words, spelling, and punctuation that were not noted in checking the note before signing.
--- NOTE | 2017-12-03 09:40 | DS.PCM_ITS ---
Discharge Date and Diagnosis - Problem List Patient Problems: Active and Suspected Problems (Last Updated 12/01/17 @ 10:35 by OSMANY Rosario) Viral URI (Acute) Asthma exacerbation (Acute) Date of Admission: 11/30/17 Date of Discharge: 12/03/17 - Primary Discharge Diagnosis Active and Suspected Problems (Last Updated 12/01/17 @ 10:35 by OSMANY Rosario) Viral URI (Acute) Asthma exacerbation (Acute) - Secondary Discharge Diagnosis Chronic Problems (Last Updated 12/01/17 @ 10:35 by OSMANY Rosario) Restrictive airway disease (Chronic) Diaphragmatic hernia congenital (Chronic) Chronic hypoxemic respiratory failure (Chronic) Obstructive sleep apnea (Chronic) Morbid obesity (Chronic) Hypokalemia (Chronic) Asthma (Chronic) HTN (hypertension) (Chronic) Obesity (Chronic) RLQ intramuscular mass (Chronic) hx chest surgery (Chronic) age 8 Type 2 diabetes mellitus (Chronic) Hospital Course and Treatment Imaging Results: Clinical Impression(s) from Imaging Studies Chest CT 12/02/17 10:53 IMPRESSION: Elevation of the left hemidiaphragm with underlying atelectasis and/or scarring. Electronically Signed: Mil Spain MD at 14:56 EST Tel [phone], Service support , Operations: None Summary of Care Provided: Patient is a 37-year-old lady with past medical history significant for asthma/ restrictive lung disease presented with progressive shortness of breath 1. Exacerbation of asthma/restrictive lung disease as dictated by respiratory syncytial virus infection: Patient is being admitted to regular nursing floor. She apparently did fail outpatient treatment. Patient started on systemic steroid, bronchodilator therapy, supplemental oxygen with consultation placed to pulmonary medicine case discussed with Dr. Mcclendon. Patient respiratory panel was positive for RSV subsequently placing respiratory precautions. High- resolution CT obtained as part of her evaluation due to persistent bronchospasm only demonstrated atelectasis and scarring. 2. Diabetes mellitus type 2 with labile control with episodes of both hypo-and hyperglycemia did continue with home regimen in addition to Accu-Cheks before meals and at bedtime with sliding scale coverage 3. Hypertension-blood pressure controlled, home medications continued with dose adjustment as needed 4. Morbid obesity with BMI of 39.2: Weight loss advised 3. History of open heart surgery for congenital heart disease for which patient apparently underwent correction for vascular abnormalities involving the heart (details not available) next 6. Depression with anxiety: Patient is on SSRI 7. Chronic diastolic congestive heart failure patient is on Lasix as well as Aldactone 8. DVT prophylaxis SC Lovenox Discharge Diet: 1800 Calorie Control Diet Discharge Activity: May not drive while taking narcotic pain medications. Home Medications: Medications to take at Discharge Metoprolol(XL)Succ [Toprol Xl (Beta Vishal)] 200 mg PO DAILY 02/10/14 Escitalopram Oxalate [Lexapro] 5 mg PO DAILY 10/23/15 Metformin HCl [Metformin HCl ER] 1,000 mg PO BID 03/25/16 Montelukast [Singulair] 10 mg PO QHS 04/21/16 Albuterol Aerosols [Ventolin Aerosols] 2.5 mg INHALATION Q4H PRN PRN 12/03/16 Albuterol Inhaler [Ventolin Hfa] 2 puff INHALATION Q4H PRN PRN 12/03/16 Dicyclomine HCl [Bentyl] 10 mg PO ACHS 12/03/16 Ipratropium/Albuterol Sulfate [Duoneb] 3 ml INHALATION Q6H.RT 12/03/16 Metolazone [Zaroxolyn] 5 mg PO Q7D 12/03/16 Multivitamin with Folic Acid [Thera Tablet] 1 ea PO DAILY 12/03/16 Potassium Chloride 20 meq PO DAILY 12/03/16 Sertraline HCl [Zoloft] 100 mg PO DAILY 08/29/17 baclofen 10 mg tablet 20 mg PO TID PRN tab 09/24/17 fluticasone 50 mcg/actuation nasal spray,suspension 2 spray INTRANASAL DAILY PRN 09/24/17 furosemide 40 mg tablet 20 mg PO BID tab 09/24/17 gabapentin 100 mg capsule 100 mg PO TID cap 09/24/17 benzonatate 100 mg capsule 100 mg PO TID PRN #30 cap 11/26/17 Dulaglutide [Trulicity] 1.5 mg SQ QWEEK 11/30/17 Naproxen [Naprosyn] 500 mg PO BID PRN PRN 11/30/17 Omeprazole 20 mg PO DAILY 11/30/17 Pantoprazole Sodium [Protonix] 40 mg PO DAILY 11/30/17 ProMETHAzine [Phenergan] 25 mg PO Q8H PRN PRN 11/30/17 Spironolactone [Aldactone] 25 mg PO BID 11/30/17 Sumatriptan Succinate [Imitrex] 100 mg PO DAILY PRN 11/30/17 Topiramate [Trokendi Xr] 50 mg PO QHS 11/30/17 Verapamil HCl [Verapamil ER] 240 mg PO BID 11/30/17 Doxycycline 100 mg PO BID #14 cap 12/02/17 Guaifenesin [Mucinex] 1,200 mg PO BID #20 tab 12/02/17 Prednisone 10 mg PO UD #30 tab 12/02/17 Guaifenesin [Robitussin] 10 ml PO Q4H PRN PRN #300 ml 12/03/17 Insulin Detemir [Levemir (BKC)] 10 units SC DAILY #5 flexpen 12/03/17 Following Prescrptions Were Given to Patient: Doxycycline 100 mg PO BID #14 cap Guaifenesin [Robitussin] 10 ml PO Q4H PRN PRN #300 ml PRN Reason: Cough Guaifenesin [Mucinex] 1,200 mg PO BID #20 tab Insulin Detemir [Levemir (BKC)] 10 units SC DAILY #5 flexpen Prednisone 10 mg PO UD #30 tab Primary Care Physician: Asim Cohn DO [Primary Care Provider] - Disposition: Home with Home Health Minutes spent on discharge:: 35 Patient Condition:: Stable Meaningful Use Info Meaningful Use Diagnoses (Choose all that apply): None applicable Code Visit Inpatient E&M: 73956 Disch Hosp
--- NOTE | 2017-12-03 09:40 | PN_ITS ---
Patient Problems: Active and Suspected Problems (Last Updated 12/01/17 @ 10:35 by Pily Watson , CLAYTON-C) Viral URI (Acute) Asthma exacerbation (Acute) Subjective: The patient was seen and examined. She is sitting up in chair conversing without any dyspnea. Remains afebrile and hemodynamically stable. Maintaining appropriate saturations on 3 L of oxygen. Still complaining of a persistent cough, however this has improved. Objective: No new lab or culture data to review. Respiratory panel showing RSV B, influenza negative. Respiratory culture is pending with Gram stain showing 3+ gram-positive cocci, 2+ gram-negative rods, and 1+ WBCs. - Physical Exam General: Alert, Oriented x3, Cooperative, No apparent distress, Well developed, Well nourished, - - Talkative, no conversational dyspnea HEENT: Atraumatic, Normocephalic Oral: Moist Mucosa, No Gingival or Mucosal Lesions/ Ulcerations Neck: Supple, No Nodes, Trachea Midline Lungs: Clear to auscultation, Diminished Cardiovascular: Regular rate, Regular Rhythm, Normal S1, Normal S2, No murmurs Abdomen: Bowel Sounds Present, Soft, Non Tender, Obese, Hernia Extremities: No clubbing, No cyanosis, No edema Skin: No rashes, No breakdown Musculoskeletal: No Tenderness to Palpation of Joints or Extremities Lymphatic: No Cervical, Supraclavicular, or Inguinal Adenopathy Neurological: Neuro grossly intact Psych/Mental Status: Alert and oriented to time, place, person, mood and affect Vital Signs Temp Pulse Resp BP Pulse Ox 96.6 F L 73 16 140/87 H 98 12/03/17 04:03 12/03/17 07:15 12/03/17 07:15 12/03/17 04:03 12/03/17 07:15 Oxygen Flow Rate 3 Oxygen Delivery Method Nasal Cannula Weight: 264 lb 8.875 oz Body Mass Index (BMI) 39.2 Intake and Output for Last 24 Hours 12/01/17 12/02/17 12/03/17 23:59 23:59 23:59 Intake Total 2176 / 2176 1460 / 1460 150 / 150 Output Total 600 / 600 1300 / 1300 200 / 200 Balance 1576 / 1576 160 / 160 -50 / -50 Microbiology Past 72 Hours 11/30/17 13:35 Gram Stain - Final Sputum, Expectorated/Coughed Respiratory Culture - Final 11/30/17 11:20 Respiratory Panel (PCR) - Final Mucosa - Nose RSV B 11/30/17 11:20 Influenza Types A,B Direct FA (ANNELISE) - Final Mucosa - Nose POC Glucose 12/03/17 12/02/17 12/02/17 06:49 21:46 16:39 POC Glucose 180 H 290 H 249 H 12/02/17 11:43 POC Glucose 199 H Assessment/Plan Active and Suspected Problems (Last Updated 12/01/17 @ 10:35 by Pily Watson , HOME CARE COMPANION-C) Viral URI (Acute) Asthma exacerbation (Acute) RECOMMENDATIONS 1. Wean oxygen supplementation to keep saturations greater than 90%. 2. Encourage incentive spirometer 3. Increase activity as tolerated, mobilize 4. Continue aerosols 5. Continue oral steroids with taper at d/c 6. Continue CPAP at night with 3 L oxygen bleed 7. Walking oximetry prior to discharge 8. Follow up in pulmonary clinic with HOME CARE COMPANION within 2 weeks of discharge 9. Consider follow up soon with [facility] for possible hernia surgery 10. Okay to discharge from pulmonary standpoint IMPRESSIONS 1. Asthma exacerbation secondary to RSV B (moderate persistent) Per PFTs, patient does not have COPD. Patient with outpatient treatment failure on 2 rounds of Z-Darian and steroids. She has been afebrile with no leukocytosis. Respiratory panel showing RSV B and sputum culture with normal respiratory tolu. Influenza negative. D-dimer and BNP normal. Patient has significant hernia that could be exacerbating her asthma. She is on baseline PPI at home. Transition to oral steroids today with taper at discharge. Antibiotics discontinued. Increase activity as tolerated and continue bronchodilators. Continue Flonase and Singulair. Advised patient she may have a prolonged cough/illness secondary to her pre-existing lung condition. She can follow closely with HOME CARE COMPANION in pulmonary office. 2. Chronic respiratory failure with hypoxia Patient wears 3 L oxygen at all times, despite 6 minute walking oximetry showing she needed only with exertion. He does have significant exercise intolerance. This may be partially due to obesity hypoventilation syndrome. Wean oxygen supplementation to keep saturations greater than 90%. Walking oximetry prior to discharge to reassess exertional need requirements. 3. Diabetes mellitus/hypertension/morbid obesity/history of chest surgery/ hypokalemia/congenital diaphragmatic hernia/RICH Complicates care, management, recovery, and prognosis. Adjust insulin as necessary for better glucose control. Likely okay to continue her home medications otherwise. Continue nocturnal PAP therapy with home settings. This note was generated with [employer] dictation software. It may contain incorrect words, spelling, and punctuation that were not noted in checking the note before signing.
[2017-12-03 10:00] VITALS: BP 162/79; PULSE 75; RESP 16; TEMP 37; O2SAT 98
--- NOTE | 2017-12-03 10:22 | CASEMGMT ---
ALIN called [facility] coverage line and let George Hernandez know patient is being d/c today. RN CM spoke with [facility] regarding patient requesting a new mask for CPAP. Plan: d/c home with resumption of waiver services. Her CM with [facility] is Darby Rhoades and ALIN spoke with her. She is working on setting up home health aides. A referral was also made to [facility]. Anitra HUNT MSW
--- NOTE | 2017-12-03 10:28 | NURSING ---
PATIENT REFUSED TO WALKED WITHOUT OXYGEN STATES SHE WILL PASS OUT.
[2017-12-03 10:32] VITALS: PULSE 75
[2017-12-03] MEDS: Pantoprazole Sodium 40 MG Tablet PO (10:32)
[2017-12-03] MEDS: Sertraline 100 MG Tablet PO (10:32)
[2017-12-03] MEDS: Spironolactone 25 MG Tablet PO (10:32)
[2017-12-03] MEDS: Furosemide 20 MG Tablet PO (10:32)
[2017-12-03] MEDS: Metoprolol(XL)Succ 200 MG Tablet PO (10:32)
[2017-12-03] MEDS: Verapamil SR 240 MG Tablet PO (10:32)
[2017-12-03] MEDS: guaiFENesin 1,200 MG Tablet 1200 MG PO (10:33)
--- NOTE | 2017-12-03 10:33 | CASEMGMT ---
Per Sol RN, pt has multiple questions and asks to speak with RN CM. Per Sol, pt is also requesting new mask for her bipap/cpap. Call to [facility] as pt states DME is from [facility] and per Hillary at [facility], pt's oxygen is through them but bipap is through [facility]. Call to Rema at [facility] and she states that pt can come picker / packer a new mask at any time. This RN CM to room to speak with pt and pt updated on mask, CCN, and HHC at this time, voices understanding and pt asks this RN CM to write down all resources provided in her notebook at this time as well as what RSV stands for and that she has been in droplet precautions. Pt states no further questions/concerns/needs at this time. Alfredo RN CM
[2017-12-03 11:00] VITALS: PULSE 83; RESP 16
--- NOTE | 2017-12-03 12:07 | NURSING ---
PATIENT AMBULATED ON 3LNC, O2 WAS 95%.
[2017-12-03 12:16] LABS: Bedside Glucose 270 mg/dL (70-110)
== END 2017-12-03 12:55 | disposition home or self-care (01) | DRG 152 ==
PROVIDERS: Admitting Provider Internal Medicine; Family Provider Family Medicine; PCP Family Medicine; Visit Provider Internal Medicine
DX: J06.9 Acute upper respiratory infection, unspecified (principal); Q79.0 Congenital diaphragmatic hernia; J96.11 Chronic respiratory failure with hypoxia; J45.41 Moderate persistent asthma with (acute) exacerbation; B97.4 Respiratory syncytial virus as the cause of diseases classified elsewhere; I50.32 Chronic diastolic (congestive) heart failure; I11.0 Hypertensive heart disease with heart failure; E66.01 Morbid (severe) obesity due to excess calories; Z99.81 Dependence on supplemental oxygen; G47.33 Obstructive sleep apnea (adult) (pediatric); E87.6 Hypokalemia; E11.9 Type 2 diabetes mellitus without complications; Z68.39 Body mass index [BMI] 39.0-39.9, adult; Z79.84 Long term (current) use of oral hypoglycemic drugs; F41.8 Other specified anxiety disorders; Z87.74 Personal history of (corrected) congenital malformations of heart and circulatory system
CPT/HCPCS: 71046; 71250; 80048; 82962; 83735; 83880; 85025; 85379; 87070; 87205; 87633; 87804; 93005; 94640; 99283; J7040; A4216; J2405

== ENCOUNTER → 2018-02-03 09:00 | Outpatient (CLI) | payer MEDICARE, SELFPAY ==
[2018-02-03 12:34] LABS: Anion Gap 8 (5-15); BUN 9 mg/dL (7-18); BUN/Creat Ratio 12.2 RATIO (10-20); Calcium,Total 8.9 mg/dL (8.5-10.1); Chloride 105 mmol/L (98-107); Creatinine, Serum 0.74 mg/dL (0.55-1.02); EST Glomerular Filtration Rate 96 mL/min (>60); Est Glom Filt Rate - Afr Amer 116 mL/min (>60); Glucose 108 mg/dL (74-106); Potassium 3.6 mmol/L (3.5-5.1); Sodium Level 140 mmol/L (136-145)
== END ==
PROVIDERS: Family Provider Family Medicine; PCP Family Medicine; Visit Provider Family Medicine
DX: E87.6 Hypokalemia (principal)
CPT/HCPCS: 36415; 80048

== ENCOUNTER 2018-04-22 19:58 | Emergency (ER) | payer MEDICARE, SELFPAY ==
[2018-04-22] VITALS (7 sets, daily range): BP systolic 144–177; BP diastolic 84–100; PULSE 100–126; RESP 16–34; TEMP 37.5; O2SAT 95–98; BMI 43.2
[2018-04-22 20:16] LABS: Bedside Glucose 115 mg/dL (70-110)
--- NOTE | 2018-04-22 21:02 | EKG12_ITS ---
Test Reason : SOB Blood Pressure : / mmHG Vent. Rate : 106 BPM Atrial Rate : 106 BPM P-R Int : 172 ms QRS Dur : 066 ms QT Int : 344 ms P-R-T Axes : 065 051 059 degrees QTc Int : 456 ms Sinus tachycardia Otherwise normal ECG Confirmed by SHARATH HARRIS ([id number]), newspaper editor STANISLAW COLEMAN ([id number]) on 04/26/2018 1:32:51 PM Referred By: MARCIANO Confirmed By:SHARATH HARRIS
--- NOTE | 2018-04-22 21:10 | RAD_ITS ---
STUDY: X-RAY CHEST REASON FOR EXAM: Female, 37 years old. Chest pain. TECHNIQUE: Single frontal view of the chest. No comparison COMPARISON: November 28, 2017. FINDINGS: The lungs are clear and expanded. There is no demonstrated pleural abnormality. Normal size heart. Normal mediastinum and cherelle. Normal visualized pulmonary arteries. Normal visualized aortic arch and descending thoracic aorta. Normal visualized thoracic spine. Normal visualized ribs, clavicles, and shoulders. There is no demonstrated abnormality of the visualized soft tissue structures of the upper abdomen. RAD/Chest 1 View (Portable) IMPRESSION: No acute cardiopulmonary process. Electronically Signed: Pat Ortiz MD at 21:29 EDT Tel , Service support ,
[2018-04-22] MEDS: MethylPREDNISolone 125 MG/2 ML Vial IV (21:19)
[2018-04-22 21:37] LABS: Absolute Lymphocyte Count 3.33 X10^3/ul (0.83-4.51); Absolute Neutrophil Count 9.9 X10^3/uL (2.0-7.7); Basophil# 0.04 X10^3/uL; Basophil% 0.3 % (0-1); Eosinophil# 0.13 X10^3/uL; Eosinophils% 0.9 % (0-5); Hematocrit 42.4 % (37-47); Lymphocyte # 3.33 X10^3/ul (4.0); Lymphocyte % 22.9 % (19-41); Mean Corpuscular Hgb 26.8 pg (27.0-32.0); Mean Corpuscular Volume 81.2 fL (81-99); Mean Platelet Vol. 9.4 fl (6.2-12.0); Monocyte# 1.08 X10^3/uL; Monocyte% 7.4 % (0-10); Neutrophil # 9.94 X10^3/uL (2.7-7.7); Neutrophil % 68.3 % (47-70); POSITIVE COUNT NO; POSITIVE DIFFERENTIAL NO; POSITIVE MORPHOLOGY NO; Platelet Count 224 K/mm3 (150-450); RBC Distribution Width CV 13.5 % (11.6-14.6); RBC Distribution Width SD 40.3 fl (35.1-43.9); Red Blood Count 5.22 M/mm3 (4.2-5.4); White Blood Count 14.6 K/mm3 (4.4-11.0)
[2018-04-22 21:44] LABS: Anion Gap 6 (5-15); BUN 10 mg/dL (7-18); BUN/Creat Ratio 11.3 RATIO (10-20); Calcium,Total 8.5 mg/dL (8.5-10.1); Chloride 106 mmol/L (98-107); Creatinine, Serum 0.89 mg/dL (0.55-1.02); EST Glomerular Filtration Rate 77 mL/min (>60); Est Glom Filt Rate - Afr Amer 93 mL/min (>60); Estimated Creatinine Clearance 76.19 ml/min; Glucose 117 mg/dL (74-106); Potassium 3.5 mmol/L (3.5-5.1); Sodium Level 140 mmol/L (136-145)
[2018-04-22] MEDS: Ipratropium/Albuterol Sulfate 3 ML AMPUL.NEB INHALATION (21:45)
[2018-04-22] MEDS: Albuterol 2.5 MG/3 ML VIAL.NEB. INHALATION ×3 (21:45→22:30)
[2018-04-22 21:50] LABS: Bedside Glucose 111 mg/dL (70-110)
[2018-04-22 22:04] LABS: Bacteria 0 SEEN /hpf (None Seen); Mucous, Urine 0 SEEN /hpf (<or=2+); Red Blood Cells-Urine 0 SEEN /hpf (0-5)
[2018-04-22 22:06] LABS: Color, Urine Yellow (Yellow); Glucose, Dipstick Normal (Normal); Ketone-Dipstick Negative (Negative); Leukocyte Esterase-Dipstick Negative /ul (Negative); Nitrite-Dipstick Negative (Negative); Occult Blood-Urine Negative /ul (Negative); Protein-Dipstick 30 mg/dl (Negative); Specific Gravity, Urine 1.015 (1.002-1.030); Urine Bilirubin Dipstick Negative (Negative); Urine Clarity Cloudy (Clear); Urine Urobilinogen Normal (Normal)
[2018-04-22 22:22] LABS: Amorphous Sediment 2+
[2018-04-22 22:23] LABS: Squamous Epithelial Cells - UA 0-5 SEEN /hpf (5-10)
[2018-04-22 22:24] LABS: White Blood Cells 0-5 SEEN /hpf (0-5)
[2018-04-22 23:26] LABS: Bedside Glucose 159 mg/dL (70-110)
--- NOTE | 2018-04-22 23:26 | ED.VISSUMM ---
- ER Visit Summary Date of Service: 04/22/18 Chief Complaint: Low blood sugar History of Present Illness: The patient is a 37 F history of diabetes, oxygen requiring COPD and asthma. Patient states that recently was taken off her diabetic meds because her sugars were running too low. She ate dinner the night she felt poorly took her blood sugar was 29 she took some oral glucose and called 911. She denied any vomiting, diarrhea, fever prior to this. States she is always short of breath and has frequent exacerbations of her asthma and COPD. She denies any hemoptysis. She denies any DVT or PE history. Physical Examination: No signs are stable. She is tachycardic 126. Pulse ox 98% on 3 L.. H EENT exam unremarkable. Dry reactive light. Neck nontender no JVD. No lymphadenopathy. Heart regular rhythm rate about 120s no murmur. Abdomen soft nontender. Normal bowel sounds no peritoneal signs. Lungs prolonged expiratory phase diminished in the bases. But no rales or rhonchi. No significant wheezing. Moving all 4 extremities. Calves nontender. No edema no cords. Neurologically awake and alert moving all 4 extremities. Test Results: Patient's BG T was 115. CBC showed a white count of 14.6 H&H 14 and 42. Chemistries normal. Gap is 6. Normal BUN and creatinine. UA normal. EKG sinus tach rate of 106 no signs of ischemia. Chest x-ray chronic changes no acute process read both by myself the radiologist. Emergency Department Course and Treatment: Patient treated with IV Solu-Medrol and aerosols here. She is doing much better on repeat exam at 2319. We rechecked her blood sugars 159. He will be discharged to home. Treatment Plan: Aerosol treatments. Watch her blood sugars closely. Follow-up with her director of home care hospice. Disposition: Discharge Impression: Acute hypoglycemia Acute on chronic dyspnea with exacerbation COPD This note was generated with [employer] dictation software. It may contain incorrect words, spelling, and punctuation that were not noted in review of the chart prior to signing ED Disposition - Plan for ED Patient: Chief Complaint: Hypoglycemia Referrals: Asim Cohn DO [Primary Care Provider] -
--- NOTE | 2018-04-22 23:33 | ED.DCSUM_ITS ---
- ER Visit Summary Date of Service: 04/22/18 Chief Complaint: Low blood sugar History of Present Illness: The patient is a 37 F history of diabetes, oxygen requiring COPD and asthma. Patient states that recently was taken off her diabetic meds because her sugars were running too low. She ate dinner the night she felt poorly took her blood sugar was 29 she took some oral glucose and called 911. She denied any vomiting, diarrhea, fever prior to this. States she is always short of breath and has frequent exacerbations of her asthma and COPD. She denies any hemoptysis. She denies any DVT or PE history. Physical Examination: No signs are stable. She is tachycardic 126. Pulse ox 98 % on 3 L.. H EENT exam unremarkable. Dry reactive light. Neck nontender no JVD. No lymphadenopathy. Heart regular rhythm rate about 120s no murmur. Abdomen soft nontender. Normal bowel sounds no peritoneal signs. Lungs prolonged expiratory phase diminished in the bases. But no rales or rhonchi. No significant wheezing. Moving all 4 extremities. Calves nontender. No edema no cords. Neurologically awake and alert moving all 4 extremities. Test Results: Patient's BG T was 115. CBC showed a white count of 14.6 H&H 14 and 42. Chemistries normal. Gap is 6. Normal BUN and creatinine. UA normal. EKG sinus tach rate of 106 no signs of ischemia. Chest x-ray chronic changes no acute process read both by myself the radiologist. Emergency Department Course and Treatment: Patient treated with IV Solu-Medrol and aerosols here. She is doing much better on repeat exam at 2319. We rechecked her blood sugars 159. He will be discharged to home. Treatment Plan: Aerosol treatments. Watch her blood sugars closely. Follow-up with her coal tram driver. Disposition: Discharge Impression: Acute hypoglycemia Acute on chronic dyspnea with exacerbation COPD This note was generated with [employer] dictation software. It may contain incorrect words, spelling, and punctuation that were not noted in review of the chart prior to signing ED Disposition - Plan for ED Patient: Chief Complaint: Hypoglycemia Referrals: Asim Cohn DO [Primary Care Provider] -
--- NOTE | 2018-04-22 23:33 | ED.DEP ---
ED Disposition - Plan for ED Patient: Disposition: Home or Assisted Living Chief Complaint: Hypoglycemia Instructions: ED Blood Sugar Low Non Diabetic, ED COPD Flare Referrals: Asim Cohn DO [Primary Care Provider] - As soon as possible Additional Instructions: Call follow-up with your pump service supervisor and primary care physician. Watch her blood sugars closely.
--- NOTE | 2018-04-22 23:36 | DCINST.ED_ITS ---
ED Disposition - Plan for ED Patient: Disposition: Home or Assisted Living Chief Complaint: Hypoglycemia Instructions: ED Blood Sugar Low Non Diabetic, ED COPD Flare Referrals: Asim Cohn DO [Primary Care Provider] - As soon as possible Additional Instructions: Call follow-up with your washing machine mechanic and primary care physician. Watch her blood sugars closely.
== END 2018-04-22 23:45 | disposition home or self-care (01) ==
PROVIDERS: Emergency Provider Emergency Medicine; Family Provider Family Medicine; PCP Family Medicine
DX: E11.649 Type 2 diabetes mellitus with hypoglycemia without coma (principal); R06.00 Dyspnea, unspecified; J44.1 Chronic obstructive pulmonary disease with (acute) exacerbation; Z99.81 Dependence on supplemental oxygen; Z79.899 Other long term (current) drug therapy
CPT/HCPCS: 71045; 80048; 81001; 82962; 85025; 93005; 94640; 96374; 99285; A4216

== ENCOUNTER → 2018-04-27 08:13 | Outpatient (CLI) | payer MEDICARE, SELFPAY ==
[2018-04-27 09:29] LABS: ALB/GLOB Ratio 0.8 RATIO (0.9-2.4); AST(SGOT) 22 U/L (15-37); Alanine Aminotransfer ALT/SGPT 53 U/L (13-56); Albumin, Serum 3.8 g/dL (3.2-5.0); Alkaline Phosphatase 74 U/L (45-117); Anion Gap 11 (5-15); BUN 13 mg/dL (7-18); Calcium,Total 9.4 mg/dL (8.5-10.1); Chloride 96 mmol/L (98-107); EST Glomerular Filtration Rate 67 mL/min (>60); Est Glom Filt Rate - Afr Amer 81 mL/min (>60); Globulin 4.7 g/dL (2.2-4.2); Glucose 97 mg/dL (74-106); Potassium 3.3 mmol/L (3.5-5.1); Protein, Total 8.5 g/dL (6.4-8.2); Sodium Level 137 mmol/L (136-145)
[2018-04-27 09:33] LABS: Insulin 173.6 mU/L (2.6-37.6)
[2018-04-28 15:47] LABS: C-Peptide 5.7 ng/mL (1.1-4.4)
== END ==
PROVIDERS: Family Provider Family Medicine; PCP Family Medicine; Visit Provider Internal Medicine Endocrinology, Diabetes & Metabolism
DX: E11.9 Type 2 diabetes mellitus without complications (principal)
CPT/HCPCS: 36415; 80053; 82533; 83525; 84681

== ENCOUNTER → 2018-08-19 12:24 | Outpatient (CLI) | payer MEDICARE, SELFPAY ==
--- NOTE | 2018-08-19 13:54 | PFTCOMP ---
COMPLETE PULMONARY FUNCTION TEST INTERPRETATION Brief HPI: Patient is a 37 year old female, currently under the care of myself, who presents to [facility] for complete pulmonary function tests secondary to diagnosis of chronic respiratory failure. Respiratory therapist reports good effort and reproducible results. Interpretation: Forced expiration spirometry shows a very severe large airways obstructive ventilatory defect with an FEV1 of 31% predicted. There is no significant bronchodilator response by strict ATS criteria. Spirograms are of good quality and plateau slowly, indicating slowly emptying areas of the lungs. The respiratory flow volume loop shows decreased expiratory flow rates at all lung volumes consistent with airway obstruction. Lung volumes by body plethysmography show a decreased total lung capacity at 2.9 L, 48% predicted. FRC and RV are elevated out of proportion. Lung volume measurements are consistent with air-trapping. Diffusion capacity by carbon monoxide is decreased at 40% predicted. The airway resistance is elevated. Compared to previous pulmonary function tests from 07/22/2017, there has been no significant change. Impression: Irreversible very severe mixed ventilatory defect with a symmetric reduction diffusing capacity. No significant change compared to previous.
== END ==
PROVIDERS: Family Provider Family Medicine; PCP Family Medicine; Referring Provider Internal Medicine Critical Care Medicine; Visit Provider Internal Medicine Critical Care Medicine
DX: J96.11 Chronic respiratory failure with hypoxia (principal); G47.33 Obstructive sleep apnea (adult) (pediatric)
CPT/HCPCS: 94060; 94726; 94729

== ENCOUNTER → 2018-08-26 11:31 | Outpatient (CLI) | payer MEDICARE, SELFPAY ==
[2018-04-22 19:59] VITALS: BMI 43.2
[2018-08-26 12:08] VITALS: PULSE 100; PULSE 110; PULSE 112; PULSE 115; PULSE 119; PULSE 86; PULSE 89; O2SAT 87; O2SAT 89; O2SAT 91; O2SAT 92; O2SAT 93; O2SAT 94; O2SAT 96; O2SAT 98
--- NOTE | 2018-08-26 12:18 | CPS ---
PATIENT ARRIVED WITH OWN O2 COMPRESSOR PROVIDED THRU [facility]. HER 6 MIN WALK WAS BEGAN ON ROOM AIR. SHE REMAINED ON ROOM AIR UNTIL 4TH MINUTE WHEN SPO2 WAS 87%. REST BREAK TAKEN TO APPLY OWN CONCENTRATOR AT 2LPM FOR WHICH PT WORE FOR REMAINDER OF TESTING.
--- NOTE | 2018-08-27 08:35 | WT_ITS ---
PSN 6 Minute Walk Test - 6 Minute Walk Test 6 Minute Walk Test: 6 Minute Walk Test PSN:6-Minute Walk Test Start: 08/26/18 12:08 Freq: Status: Active Protocol: [id number].6MINW Document 08/26/18 12:08 [facility] (Rec: 08/26/18 12:21 [facility] [id number]) 6 Minute Walk Test Date Performed 08/26/18 Time Performed 11:30 Height 5 ft 9 in Weight: 250 lb Weight in Pounds 250.[address]: Lorenzo Brown Assistive device used: None Pre-test Oxygen Delivery Method Room Air Pulse Ox (%) 96 Pulse Rate (60-100 beats/min) 86 Dyspnea Kelly Scale (0-10) 1 1st minute Oxygen Delivery Method Room Air Pulse Ox (%) 93 Pulse Rate (60-100 beats/min) 100 Dyspnea Kelly Scale (0-10) 1 2nd minute Oxygen Delivery Method Room Air Pulse Ox (%) 91 Pulse Rate (60-100 beats/min) 110 H Dyspnea Kelly Scale (0-10) 2 3rd minute Oxygen Delivery Method Room Air Pulse Ox (%) 89 Pulse Rate (60-100 beats/min) 115 H Dyspnea Kelly Scale (0-10) 3 Reported Symptoms Increased Work of Breathing 4th minute Oxygen Delivery Method Room Air Pulse Ox (%) 87 Pulse Rate (60-100 beats/min) 119 H Dyspnea Kelly Scale (0-10) 3 Number of Rests Taken 1 Reported Symptoms Increased Work of Breathing 5th minute Oxygen Flow Rate (L/min) (L/min) 2 Oxygen Delivery Method Nasal Cannula Pulse Ox (%) 94 Pulse Rate (60-100 beats/min) 112 H Dyspnea Kelly Scale (0-10) 3 Number of Rests Taken 0 Reported Symptoms Increased Work of Breathing 6th minute Oxygen Flow Rate (L/min) (L/min) 2 Oxygen Delivery Method Nasal Cannula Pulse Ox (%) 92 Pulse Rate (60-100 beats/min) 115 H Dyspnea Kelly Scale (0-10) 3 Number of Rests Taken 0 Reported Symptoms Increased Work of Breathing Post-test Oxygen Delivery Method Nasal Cannula Pulse Ox (%) 98 Pulse Rate (60-100 beats/min) 89 Dyspnea Kelly Scale (0-10) 1 Full Laps Walked 17 Partial Lap, Number of Tiles Walked 11 Total Distance Walked (ft) 1014 08/26/18 12:18 Cardiopulmonary Services by Xiomara Yates PATIENT ARRIVED WITH OWN O2 COMPRESSOR PROVIDED THRU [facility]. HER 6 MIN WALK WAS BEGAN ON ROOM AIR. SHE REMAINED ON ROOM AIR UNTIL 4TH MINUTE WHEN SPO2 WAS 87%. REST BREAK TAKEN TO APPLY OWN CONCENTRATOR AT 2LPM FOR WHICH PT WORE FOR REMAINDER OF TESTING. Initialized on 08/26/18 12:18 - END OF NOTE - Interpretation Interpretation: The patient ambulated 1014 feet over the course of 6 minutes beginning on room air without assistive devices or breaks. Pretesting oxygen saturation was noted to be 96% on room air. With ambulation, the shayne oxygen saturation was 87% at minute 4 of testing. 2 L/min of supplemental oxygen was applied and the patient was able to complete the remainder of the test while maintaining oxygen saturations at or above 88%. - Recommendations Recommendations: 2 L/min of supplemental oxygen should be utilized with exertion.
== END ==
PROVIDERS: Family Provider Family Medicine; PCP Family Medicine; Referring Provider Internal Medicine Critical Care Medicine; Visit Provider Internal Medicine Critical Care Medicine
DX: G47.33 Obstructive sleep apnea (adult) (pediatric) (principal); J96.11 Chronic respiratory failure with hypoxia
CPT/HCPCS: 94618

== ENCOUNTER 2018-11-07 02:58 | Inpatient (IN) | payer MEDICARE, SELFPAY ==
[2018-09-01 08:36] VITALS: BMI 39.5
[2018-11-07] VITALS (49 sets, daily range): BP systolic 60–144; BP diastolic 24–86; PULSE 36–90; RESP 15–42; TEMP 36.1–37.6; O2SAT 91–100; BMI 41.9; BMI 40.9
--- NOTE | 2018-11-07 03:19 | EKG12_ITS ---
Test Reason : WEAKNESS Blood Pressure : / mmHG Vent. Rate : 061 BPM Atrial Rate : 044 BPM P-R Int : 000 ms QRS Dur : 060 ms QT Int : 440 ms P-R-T Axes : 000 092 071 degrees QTc Int : 442 ms Sinus rhythm with junctional periods Rightward axis Borderline ECG Confirmed by YESENIA DIAZ, ROMEL ([id number]), video news editor STANISLAW COLEMAN ([id number]) on 11/10/2018 8:31:01 AM Referred By: MARCIANO Confirmed By:ROMEL PATTERSON MD
[2018-11-07] MEDS: 0.9% Normal Saline 1,000 ML 1000 ML IV ×2 (03:20→04:26)
--- NOTE | 2018-11-07 03:30 | RAD_ITS ---
STUDY: X-RAY CHEST REASON FOR EXAM: Female, 38 years old. Weakness, dizziness, shortness of breath, confusion TECHNIQUE: Single AP portable view of the chest. COMPARISON: 04/22/2018. 11/28/2017 FINDINGS: There are superimposed monitor leads. The lungs are clear and expanded. There is no demonstrated pleural abnormality. Normal size heart. Normal mediastinum and cherelle. Normal visualized pulmonary arteries. Normal visualized aortic arch and descending thoracic aorta. Normal visualized thoracic spine. Normal visualized ribs, clavicles, and shoulders. There is no demonstrated abnormality of the visualized soft tissue structures of the upper abdomen. RAD/Chest 1 View (Portable) IMPRESSION: No acute cardiopulmonary disease. No significant interval change. Electronically Signed: Cyndi Escalante MD at 3:48 EST , Service support ,
[2018-11-07 03:54] LABS: Absolute Lymphocyte Count 5.25 X10^3/ul (0.83-4.51); Absolute Neutrophil Count 7.9 X10^3/uL (2.0-7.7); Basophil# 0.03 X10^3/uL; Basophil% 0.2 % (0-1); Eosinophil# 0.11 X10^3/uL; Eosinophils% 0.8 % (0-5); Hematocrit 43.6 % (37-47); Hemoglobin 13.9 g/dl (12.0-15.0); Lymphocyte # 5.25 X10^3/ul (4.0); Lymphocyte % 37.1 % (19-41); Mean Corp Hgb Conc 31.9 g/gl (32-36); Mean Corpuscular Hgb 26.8 pg (27.0-32.0); Mean Corpuscular Volume 84.2 fL (81-99); Monocyte# 0.82 X10^3/uL; Monocyte% 5.8 % (0-10); Neutrophil % 55.7 % (47-70); Platelet Count 303 K/mm3 (150-450); RBC Distribution Width CV 13.6 % (11.6-14.6); RBC Distribution Width SD 41.1 fl (35.1-43.9); Red Blood Count 5.18 M/mm3 (4.2-5.4); White Blood Count 14.2 K/mm3 (4.4-11.0)
[2018-11-07 03:55] LABS: Differential Indicated SCAN CRITERIA MET; POSITIVE COUNT NO; POSITIVE DIFFERENTIAL YES; POSITIVE MORPHOLOGY NO
[2018-11-07 04:15] LABS: Anion Gap 12 (5-15); BUN 17 mg/dL (7-18); Calcium,Total 8.3 mg/dL (8.5-10.1); Chloride 100 mmol/L (98-107); EST Glomerular Filtration Rate 36 mL/min (>60); Est Glom Filt Rate - Afr Amer 44 mL/min (>60); Estimated Creatinine Clearance 46.15 ml/min; Glucose 263 mg/dL (74-106); Potassium 4.3 mmol/L (3.5-5.1); Sodium Level 137 mmol/L (136-145)
[2018-11-07 04:25] LABS: Lactic Acid 3.7 mmol/L (0.4-2.0)
[2018-11-07 04:48] LABS: Red Blood Cells-Urine 0 SEEN /hpf (0-5)
[2018-11-07 04:51] LABS: Color, Urine Yellow (Yellow); Glucose, Dipstick Normal (Normal); Ketone-Dipstick 5 mg/dl (Negative); Leukocyte Esterase-Dipstick 100 /ul (Negative); Nitrite-Dipstick Negative (Negative); Occult Blood-Urine Negative /ul (Negative); Protein-Dipstick 100 mg/dl (Negative); Specific Gravity, Urine 1.025 (1.002-1.030); Urine Clarity Cloudy (Clear); Urine Urobilinogen 1 mg/dl (Normal)
[2018-11-07 04:56] LABS: Urine Bilirubin Dipstick 1 mg/dL (Negative)
[2018-11-07 04:58] LABS: Mucous, Urine 3+ /hpf (<or=2+)
[2018-11-07 04:59] LABS: Bacteria RARE /hpf (None Seen); Hyaline Cast 0-5 SEEN /lpf (0-5); Squamous Epithelial Cells - UA 0-5 SEEN /hpf (5-10); White Blood Cells 0-5 SEEN /hpf (0-5)
[2018-11-07] MEDS: Ondansetron 4 MG/2 ML Vial IV ×2 (05:15→10:15)
--- NOTE | 2018-11-07 05:18 | HP.PCM_ITS ---
History of Present Illness Date of Admission: 11/07/18 Chief Complaint: Lightheadedness and lethargy, hypotension The patient is a 38 year old F with an extensive PMH as listed below. She was admitted through the ED with a complaint of lightheadedness, weakness and lethargy. Patient states she woke up to go to the bathroom in the early hours of this morning but was unable to get to the bathroom and had to have a bowel movement on herself. She felt very weak to get up and had to call out until his son came to try to help her up. Therefore called the EMS. She says she thinks he passed out and could not really do with the EMS was instructed her to do. She was therefore brought into the ED. She denied any assisted fever or chills, any cough or chest pain but only complained of a sore throat. She denied any palpitations or dizziness and states she had noted that her heart rate was much lower than usual. She denied any abdominal pain and had had only one episode of diarrhea and also vomiting today. Review of systems otherwise negative. On admission the ED, she was found to have blood pressure of 79/59. Her heart rate was also low at about 55 when she came in she was also tachypneic with respiratory rate of 22.. Labs showed creatinine of 1.7 with a baseline being less than 1. Lactic acid was elevated at 3.7 white cell count was 14.2. Initial troponin was negative. Chest x-ray showed no acute cardiopulmonary disease. She was started on IV fluids her blood pressure was slow to respond. Discussed need for placement of central line before transfer to floor with ED Dr. she is to be admitted and managed for septic shock of unknown etiology. 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) Chronic hypoxemic respiratory failure (Chronic) Obstructive sleep apnea (Chronic) Morbid obesity (Chronic) Hypokalemia (Chronic) Asthma (Chronic) HTN (hypertension) (Chronic) Obesity (Chronic) Type 2 diabetes mellitus (Chronic) Medical History: Medical History (Last Reviewed 09/01/18 @ 09:12 by Flori Lee, AUTOMOTIVE EXHAUST EMISSIONS TECHNICIAN-C) Paroxysmal supraventricular tachycardia (Chronic) I47.1 CHF (congestive heart failure) (Chronic) I50.9 Restrictive airway disease (Chronic) J98.4 Diaphragmatic hernia congenital (Chronic) Q79.0 Chronic hypoxemic respiratory failure (Chronic) J96.11 Obstructive sleep apnea (Chronic) G47.33 Morbid obesity (Chronic) E66.01 Hypokalemia (Chronic) E87.6 Asthma (Chronic) J45.909 HTN (hypertension) (Chronic) I10 Obesity (Chronic) E66.9 Type 2 diabetes mellitus (Chronic) E11.9 RLQ intramuscular mass Abnormal electrocardiogram R94.31 Absence of menstruation N91.2 Adjustment disorder with depressed mood F43.21 Allergic rhinitis J30.9 BMI 40.0-44.9, adult Z68.41 Chronic hypoxemic respiratory failure J96.11 Congenital diaphragmatic hernia Q79.0 Diabetic autonomic neuropathy associated with type 2 diabetes mellitus E11.43 Edema R60.9 Fatty liver K76.0 Hypoxemia requiring supplemental oxygen R09.02, Z99.81 Lower urinary tract symptoms (LUTS) R39.9 Migraine without aura or status migrainosus G43.009 Mild intellectual disabilities F70 Nontoxic single thyroid nodule E04.1 Renal mass N28.89 Restrictive lung disease secondary to obesity J98.4, E66.8 Sleep related leg cramps G47.62 Stress incontinence in female N39.3 Uncontrolled type 2 diabetes mellitus without complication, without long-term current use of insulin E11.65 Varicose veins of both lower extremities with inflammation I83.11, I83.12 endometrioma right lower abdominal wall 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 planned incisional hernia right lower abdominal wall Asthma exacerbation (Inactive) J45.901 Community acquired pneumonia (Inactive) J18.9 Viral URI (Inactive) J06.9, B97.89 Allergies nabumetone Allergy (Unknown, Verified 09/01/18 08:37) Unknown hydrocodone bitartrate [From [place]] Allergy (Verified 09/01/18 08:37) Itching Penicillins Allergy (Verified 09/01/18 08:37) Swelling Home Medications: Ambulatory Orders Medication Instructions Recorded Metoprolol(XL)Succ [Toprol Xl 200 mg PO DAILY 02/10/14 (Beta Vishal)] Escitalopram Oxalate [Lexapro] 5 mg PO DAILY 10/23/15 Montelukast [Singulair] 10 mg PO QHS 04/21/16 Albuterol Aerosols [Ventolin 2.5 mg INHALATION Q4H PRN PRN 12/03/16 Aerosols] Albuterol Inhaler [Ventolin Hfa] 2 puff INHALATION Q4H PRN PRN 12/03/16 Dicyclomine HCl [Bentyl] 10 mg PO ACHS 12/03/16 Ipratropium/Albuterol Sulfate 3 ml INHALATION Q6H.RT PRN 12/03/16 [Duoneb] Metolazone [Zaroxolyn] 5 mg PO Q7D 12/03/16 Multivitamin with Folic Acid 1 ea PO DAILY 12/03/16 [Thera Tablet] furosemide 40 mg tablet 20 mg PO BID tab 09/24/17 gabapentin 100 mg capsule 100 mg PO TID cap 09/24/17 Omeprazole 20 mg PO DAILY 11/30/17 Spironolactone [Aldactone] 25 mg PO BID 11/30/17 Verapamil HCl [Verapamil ER] 240 mg PO BID 11/30/17 Ondansetron [Zofran Odt] 4 mg PO Q8H PRN #21 tab.rapdis 12/03/17 skin protectants, misc. pads See Rx Instructions TOPICAL 12/14/17 .COMPLEX #126 pad MDD 4 pad per day potassium chloride ER 20 mEq 40 meq PO DAILY tab 04/11/18 tablet,extended release(part/cryst) Fluticasone/Salmeterol [Advair 1 puff INHALATION BID 04/22/18 250/50 Mcg Diskus] Dulaglutide [Trulicity] 1.5 mg SQ QWEEK 11/07/18 Topiramate [Trokendi Xr] 50 mg PO QHS 11/07/18 Surgical History: Surgical History (Last Reviewed 09/01/18 @ 09:12 by Flori Lee NP-C) History of throat surgery Z98.890 c section tubal ligation chest surgery Surgical History: - - hysterectomy, tubal ligation, cardiac surgery of unclear reason. She mentioned that she has abnormal positioned heart and she went for surgery for it. History of lung surgery and possible chest tubes. Psychiatric History: No pertinent psych hx CLINIC SUPERVISOR History: No pertinent CLINIC SUPERVISOR history Lives: With Family Smoking Status: Never smoker Tobacco Use: Non-smoker Alcohol: None Drugs: None - *Family History Maternal Family History: Family History (Last Reviewed 09/01/18 @ 09:12 by OSMANY Lux) Mother Diabetes Kidney disease History Items: No pertinent history Paternal Family History: Family History (Last Reviewed 09/01/18 @ 09:12 by OSMANY Lux) Mother Diabetes Kidney disease History Items: No pertinent history Review of Systems Constitutional: Reports: Malaise, Weakness, Fatigue. Denies: Anorexia, Chills, Fever Eyes: Denies: Blurred vision HEENT: Reports: Sore Throat. Denies: Head Aches, Sinus Congestion, Sinus Drainage Cardiovascular: Denies: Chest Pain, Chest Pressure, Chest Tightness, Palpitations Respiratory: Denies: Cough, Shortness of Breath, Shortness of breath at rest, Shortness of breath upon exertion, Sputum production Gastrointestinal: Reports: Diarrhea, Vomiting. Denies: Abdominal Pain, Nausea Genitourinary: Denies: Dysuria Musculoskeletal: Denies: Joint Pain, Joint Tenderness Skin: Denies: Rash, Wounds Neurological: Denies: Numbness, Tingling, Focal weakness Psychiatric: Denies: Anxiety, Depression, Homicidal Ideations, Suicidal Ideations Hematologic/ Lymphatic: Denies: Easy Bruising, Easy Bleeding VTE Information - Inpt Only VTE Present on Admission: No VTE Pharm Prophylaxis ordered?: Yes - Physical Exam General: Alert, Oriented x3, Cooperative, - - mild distress HEENT: Atraumatic, PERRLA, EOMI, Normocephalic, - - mild erythema of her throat, no enlarge tonsils or abscess visualised Oral: Dry Mucosa Neck: Supple, No JVD, Negative Carotid Bruits Lungs: - - decreased breath sounds in right lower lung [place], on 3L of oxygen, which is her baseline. Cardiovascular: Regular Rhythm, Normal S1, Normal S2, Bradycardic Abdomen: Bowel Sounds Present, Soft, Non Tender, Non-Distended, No Hepato- splenomegaly Extremities: No clubbing, No cyanosis, No edema, Capillary Refill Less than 3 Seconds Skin: No rashes, No breakdown Musculoskeletal: No Tenderness to Palpation of Joints or Extremities Lymphatic: No Cervical, Supraclavicular, or Inguinal Adenopathy Neurological: Cranial nerves II-XII grossly intact, Neuro grossly intact, Motor Exam 5/5 strength throughout Psych/Mental Status: Normal Affect, Appropriate, Alert and oriented to time, place, person, mood and affect Vital Signs Temp Pulse Resp BP Pulse Ox 98.0 F 44 L 30 H 85/58 L 98 11/07/18 03:00 11/07/18 05:00 11/07/18 05:00 11/07/18 05:00 11/07/18 05:00 Oxygen Flow Rate (L/min) 2 Oxygen Delivery Method Nasal Cannula Weight: 276 lb 0.3 oz Body Mass Index (BMI) 41.9 Finger Stick Blood Glucose 111 Laboratory Tests Past 24 Hrs 11/07/18 11/07/18 11/07/18 03:20 03:20 03:20 WBC 14.2 H RBC 5.18 Hgb 13.9 Hct 43.6 MCV 84.2 MCH 26.8 L MCHC 31.9 L RDW 13.6 RDW Differential 41.1 Plt Count 303 MPV 10.0 Immature Gran % (Auto) 0.400 Neut % (Auto) 55.7 Lymph % (Auto) 37.1 [place] % (Auto) 5.8 Eos % (Auto) 0.8 Baso % (Auto) 0.2 Absolute Neuts (auto) 7.9 H Absolute Lymphs (auto) 5.25 H Total Counted Not Reportable Sodium 137 Potassium 4.3 Chloride 100 Carbon Dioxide 25.0 Anion Gap 12 BUN 17 Creatinine 1.70 H Estim Creat Clear Calc 46.15 Est GFR (MDRD) Af Amer 44 L Est GFR (MDRD) Non-Af 36 L BUN/Creatinine Ratio 10.0 Glucose 263 H Lactic Acid 3.7 H Calcium 8.3 L Troponin I < 0.015 Urine Color Urine Clarity Urine pH Ur Specific [place] Urine Protein Urine Glucose (UA) Urine Ketones Urine Occult Blood Urine Nitrite Urine Bilirubin Urine Urobilinogen Ur Leukocyte Esterase Urine RBC Urine WBC Ur Squamous Epith Cells Urine Bacteria Hyaline Casts Urine Mucus 11/07/18 04:05 WBC RBC Hgb Hct MCV MCH MCHC RDW RDW Differential Plt Count MPV Immature Gran % (Auto) Neut % (Auto) Lymph % (Auto) [place] % (Auto) Eos % (Auto) Baso % (Auto) Absolute Neuts (auto) Absolute Lymphs (auto) Total Counted Sodium Potassium Chloride Carbon Dioxide Anion Gap BUN Creatinine Estim Creat Clear Calc Est GFR (MDRD) Af Amer Est GFR (MDRD) Non-Af BUN/Creatinine Ratio Glucose Lactic Acid Calcium Troponin I Urine Color Yellow Urine Clarity Cloudy Urine pH 5.0 Ur Specific [place] 1.025 Urine Protein 100 H Urine Glucose (UA) Normal Urine Ketones 5 H Urine Occult Blood Negative Urine Nitrite Negative Urine Bilirubin 1 H Urine Urobilinogen 1 H Ur Leukocyte Esterase 100 H Urine RBC 0 SEEN Urine WBC 0-5 SEEN Ur Squamous Epith Cells 0-5 SEEN Urine Bacteria RARE Hyaline Casts 0-5 SEEN Urine Mucus 3+ Diagnostic Data Chest X-Ray 11/07/18 03:30 IMPRESSION: No acute cardiopulmonary disease. No significant interval change. Electronically Signed: Cyndi Escalante MD at 3:48 EST , Service support , Assessment/Plan 38-year-old female admitted with a complaint of lightheadedness and one episode of diarrhea. 1. Septic shock of unclear etiology * BP was 79 systolic on admission, even with administration of IVF, BP came up to onoy 80s and 90s systolic * SIRS criteria 2/4 (tachypnea and leucocytosis) and lactic acid was also 3.7 * had only one episode of diarrhea * UA showed wbc of 0-5, rare bacteria, leucocyte esterase of 100; ahd no urinary symptoms * admit to ICU * start IV vancomycin; has penicillin allergy where her throat swells up. Discussed with ID, will give one dose of cefepime and see how patient responds. consult ID. * repeat lactic acid per sepsis protocol * acid tank cleaner consult * blood cultures and urine cultures ordered in ICU * placement of central line discussed with ED doctor as we cannot be overly aggressive with IVF administration in light of history of heart failure * will need pressors to keep MAP >65 if she continues not to respond to IVF. * 2. CK * Cr is 1.7; baseline is <1 * likely pre-renal due to hypotension * hydrate with IVF and trend Cr * check FeUrea * hold off on renal USG for now; will consider ordering if kidney function worsens * 3. Lactic acidosis: likely due to hypotension. was 3.7 on admission. Repeat per sepsis protocol 4. HFpEF: * EF is ~ 65% from previous echo done(2016). * will hold lasix and metolazone o/a of hypotension. * Also hold spironolactone * will repeat echo o.a of septic shock 5. Bradycardia: HR was in 40s and 50s on admission. Metoprolol and verapamil held. will monitor 6. Hypertension: hold verapamil, spironolactone and metoprolol o/a of hypotension 7. Diabetes mellitus: on dulaglutide 1.5mg SQ once weekly. will hold ISS. Accuchecks ACHS. 8. 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 CXR showed no acute cardiopulmonary process * previous PFTs showed a reversible very severe mixed ventilatory defect with symmetric reduction in diffusion capacity. FEV1 was 31% of predicted. * on breathing treatments * will monitor 9. COPD: on breathing treatments with albuterol and duonebs. also on Advair 10. Chronic Afib: on metoprolol, and verapamil which is held o/a of hypotension and bradycardia. EKG didnt really show Afib. will monitor DVT prophylaxis: heparin GI prophylaxis: on PPI Code status:Full code. * Patient and family counseled extensively about different types of CODE STATUS including full code, DNR CCA and DNR CCA. Patient elects to be full code. Total [id number] time 16 minutes. Code Visit Inpatient E&M: 88626 Init Hosp L3 Procedures: 96565 Advncd Care Plan 30 Min
--- NOTE | 2018-11-07 05:56 | ED.DCSUM_ITS ---
- ER Visit Summary Date of Service: 11/07/18 Chief Complaint: Feels lightheaded and dizzy. Generalized weakness. History of Present Illness: The patient is a 38 F history of prior A. fib currently not on anticoagulation. History of type 2 diabetes, hypertension, CHF, and COPD for which she is on 3 L, renal insufficiency prior SVT. Patient states that she had some diarrhea prior to arrival. She has had several syncopal events. And just feels lightheaded. Denies chest pain. Denies abdominal pain. Denies vomiting. No melena. Denies fever. Denies fever. No melena. Physical Examination: Initial blood pressure 84/59. Temperature 98. Heart rate 70. Irregular rhythm. No obvious murmur. Lungs are clear to auscultation bilaterally. Chest wall nontender. Abdomen is obese but soft. Nontender. Normal bowel sounds no peritoneal signs. Extremities moves all 4. Calves nontender without edema or cords. Neurologically she is awake alert with no focal motor deficits. Test Results: CBC shows white count of 14 with a normal hemoglobin. Negative bands. Electrolytes unremarkable gap of 12. BUN and creatinine is 17 and 1.7. Most recent creatinine was 1 on the computer. UA negative. Rare bacteria. No nitrates. No white cells. Troponin less than 0.0 1 5. Lactic acid is elevated at 3.7. Emergency Department Course and Treatment: Patient's been treated initially with 2 L of fluid she is getting a third. Her most recent blood pressure is 95/50. She seems to be responding to fluids. That was a manual blood pressure the automatic cuffs seem to read her lower than what her actual pressure is. Treatment Plan: Fluid resuscitation. I very spoken to the hospitalist Dr. Altman who is down evaluating the patient for admission. Patient is receiving IV fluids and is currently on her third liter. Her pressure is improving. Currently she is 95/60. She will be observed in the ER prior to being admitted. Disposition: Admission Impression: Acute hypotension of uncertain etiology Elevated lactic acid. Acute kidney injury with a creatinine 1.7. Diarrhea. Dehydration. This note was generated with [employer] software. It may contain incorrect words, spelling, and punctuation that were not noted in review of the chart prior to signing
--- NOTE | 2018-11-07 06:36 | ED.VISSUMM ---
- ER Visit Summary Date of Service: 11/07/18 Chief Complaint: Generalized weakness and syncope History of Present Illness: The patient is a 38 F with an extensive past medical history A. fib, insulin-dependent diabetes, CHF, COPD on 3 L with prior congenital heart disease surgery. She states she is felt lightheaded and passed out twice in the last 24 hours. She has had some diarrhea. When the squad can get her today she had soiled herself. She denies any headache. She denies any chest pain. She denies any abdominal pain. Physical Examination: Younger female. Initial blood pressure 8459. Temperature 98 and afebrile. Pulse ox 100% on 2 L. No hypoxia. HEENT exam dry mixed memories. Otherwise unremarkable. No facial droop. Normal speech. Neck nontender no JVD. Heart irregularly irregular consistent with a bradycardic A. fib at 55. Lungs clear to auscultation bilaterally. Abdomen soft and nontender. Normal bowel sounds no peritoneal signs. Obese. Remedies moves all 4. Calves nontender without edema or cords. Neurologically she is awake alert moving all 4 extremities. Answering questions and following commands. Test Results: Chest x-ray portable one view shows no acute normality read both of myself and radiologist. EKG appears to be A. fib rate of 61. It is irregular and there is no significant P waves. CBC shows a white count elevation of 14,000 with a hemoglobin of 13 and no bands. Electrolytes are unremarkable other than her creatinine is 1.7. Urinalysis is negative. Troponin is normal. Lactic acid is not elevated 3.7. Emergency Department Course and Treatment: Older female presents hypotensive with syncopal events. Patient has received 2 L normal saline wide open. Her pressure is improving. She will be given 1/3 L because she is still currently under 100 systolic blood pressure. Treatment Plan: I spoke to the hospitalist about admission Disposition: Admission to the ICU Impression: Acute hypotension of uncertain etiology Bradycardia Elevated lactic acid Acute on chronic atrial fibrillation. Acute kidney injury Diarrhea This note was generated with [employer] dictation software. It may contain incorrect words, spelling, and punctuation that were not noted in review of the chart prior to signing ED Disposition - Plan for ED Patient: Disposition: [facility]
[2018-11-07 07:35] LABS: Reflex Lactate? Y
[2018-11-07 07:55] LABS: International Normalized Ratio 1.1
[2018-11-07 07:56] LABS: Partial Thromboplast Time 27.1 Seconds (24.1-36.2)
--- NOTE | 2018-11-07 08:00 | ECHOCS_ITS ---
Reason For Study: CHF Procedure This was a 2D Doppler, Color Flow transthoracic echocardiogram. Technically difficult due to patient body habitus. Limited subcostal images, patient could not tolerate probe due to abdominal pain. Exam performed portable in ICU/CCU. Left Ventricle Normal LV size. Left ventricular systolic function is lower limits of normal. The estimated ejection fraction is 50 %. Unable to assess diastolic dysfunction due to arrhythmia. No regional wall motion abnormalities noted. Right Ventricle Normal RV size. Normal systolic function. Atria Normal left atrium. Normal right atrium. Mitral Valve Mitral valve not well visualized. Tricuspid Valve The tricuspid valve is not well visualized. Aortic Valve The aortic valve is not well visualized. Pulmonic Valve The pulmonic valve is not well visualized. Great Vessels Normal aortic root. The pulmonary artery is normal size. Normal inferior vena cava. Pericardium/Pleural No pericardial effusion. Medication Diluted definity 6ml given slow IV push to enhance endocardial definition. MMode/2D Measurements & Calculations LAV(MOD-bp): 46.1 ml SV(MOD-sp4): 27.6 ml LVAd ap4: 25.0 cm2 LAV(MOD-bp) Indexed: 19.9 ml/m2 EDV(MOD-sp4): 74.5 ml LAV(MOD-sp2): 65.3 ml EDV(sp4-el): 78.6 ml LAV(MOD-sp4): 28.0 ml LVAs ap4: 18.2 cm2 ESV(MOD-sp4): 47.0 ml ESV(sp4-el): 48.5 ml EF(MOD-sp4): 37.0 % EF(sp4-el): 38.3 % SV(sp4-el): 30.1 ml LA A4 area: 12.1 cm2 RA A4 area: 9.6 cm2 Doppler Measurements & Calculations MV E max boyd: 97.3 cm/sec Lat Peak E' Boyd: 5.9 cm/sec Ao V2 max: 81.5 cm/sec E/E' lat: 16.6 Ao max P.7 mmHg LV V1 max: 83.2 cm/sec TR max boyd: 254.1 cm/sec LV V1 max P.8 mmHg TR max P.8 mmHg Interpretation Summary Normal LV size. Left ventricular systolic function is lower limits of normal. The estimated ejection fraction is 50 %. Unable to assess diastolic dysfunction due to arrhythmia. Contrast injection was performed. The study was technically difficult. Ordering Physician: Leeanna Mcqueen Referring Physician: Asim Cohn Performed By: Abisai Roman RCS
[2018-11-07 08:14] LABS: Urea Nitrogen, Urine 717 mg/dL (NO RANGE EST.)
[2018-11-07] MEDS: 0.9% NaCl Peripheral Flush Adult/Peds IV ×3 (08:15→21:27)
[2018-11-07 08:47] LABS: Lactic Acid 1.9 mmol/L (0.4-2.0)
--- NOTE | 2018-11-07 08:49 | EKG12_ITS ---
Test Reason : Blood Pressure : / mmHG Vent. Rate : 055 BPM Atrial Rate : 060 BPM P-R Int : 000 ms QRS Dur : 062 ms QT Int : 420 ms P-R-T Axes : 000 094 057 degrees QTc Int : 401 ms Junctional rhythm Low voltage QRS Abnormal ECG When compared with ECG of 07-NOV-2018 03:40, MANUAL COMPARISON REQUIRED, DATA IS UNCONFIRMED Confirmed by YESENIA DIAZ, ROMEL ([id number]), business editor STANISLAW COLEMAN ([id number]) on 11/09/2018 2:35:09 PM Referred By: LENY Confirmed By:ROMEL PATTERSON MD
--- NOTE | 2018-11-07 08:50 | NURSING ---
Echo in progress
[2018-11-07] MEDS: Atropine Sulfate 1 MG/10 ML Syringe 0.5 MG IV (10:05)
[2018-11-07] MEDS: DOPamine IV 800 MG/250 ML IV.SOLN. 11.447 MG IV (10:08)
--- NOTE | 2018-11-07 10:23 | NURSING ---
Flori Arroyo NP at bedside for central line insertion; EKG in progress for rhythm change; Dr. Brown at bedside
--- NOTE | 2018-11-07 10:25 | EKG12_ITS ---
Test Reason : Blood Pressure : / mmHG Vent. Rate : 073 BPM Atrial Rate : 061 BPM P-R Int : 000 ms QRS Dur : 066 ms QT Int : 394 ms P-R-T Axes : 050 094 055 degrees QTc Int : 434 ms Junctional rhythm Low voltage QRS Borderline ECG When compared with ECG of 07-NOV-2018 10:23, MANUAL COMPARISON REQUIRED, DATA IS UNCONFIRMED Confirmed by YESENIA DIAZ, ROMEL ([id number]), science editor STANISLAW COLEMAN ([id number]) on 11/09/2018 2:34:20 PM Referred By: LENY Confirmed By:ROMEL PATTERSON MD
--- NOTE | 2018-11-07 10:33 | EKG12_ITS ---
Test Reason : Blood Pressure : / mmHG Vent. Rate : 067 BPM Atrial Rate : 060 BPM P-R Int : 000 ms QRS Dur : 066 ms QT Int : 400 ms P-R-T Axes : 044 091 042 degrees QTc Int : 422 ms Junctional rhythm Low voltage QRS Borderline ECG When compared with ECG of 07-NOV-2018 08:42, MANUAL COMPARISON REQUIRED, DATA IS UNCONFIRMED Confirmed by YESENIA DIAZ, ROMEL ([id number]), food editor STANISLAW COLEMAN ([id number]) on 11/09/2018 2:34:40 PM Referred By: LENY Confirmed By:ROMEL PATTERSON MD
[2018-11-07] MEDS: Ceftriaxone 1 GM/50 ML BAG IV (10:40)
--- NOTE | 2018-11-07 10:51 | RAD_ITS ---
STUDY: X-RAY CHEST REASON FOR EXAM: Female, 38 years old. Line placement TECHNIQUE: Single AP portable view of the chest. COMPARISON: Earlier today FINDINGS: EKG leads overlie the chest. Since the previous study, a right IJ central venous catheter is in place, tip is in the distal SVC. The lungs are clear and expanded. There is no demonstrated pleural abnormality. Normal size heart. Normal mediastinum and cherelle. Normal visualized pulmonary arteries. Normal visualized aortic arch and descending thoracic aorta. Normal visualized thoracic spine. Normal visualized ribs, clavicles, and shoulders. There is no demonstrated abnormality of the visualized soft tissue structures of the upper abdomen. RAD/CXR for Line Placement IMPRESSION: No acute pulmonary process Right-sided central venous catheter tip in the distal SVC Electronically Signed: Scott Gabmino MD at 11:46 EST , Service support ,
--- NOTE | 2018-11-07 11:10 | PCM.CON.CC ---
Problem List (1) CHF (congestive heart failure) Status: Chronic Qualifiers: Heart failure type: unspecified Heart failure chronicity: unspecified Qualified Code(s): I50.9 - Heart failure, unspecified (2) Restrictive airway disease Status: Chronic (3) Diaphragmatic hernia congenital Status: Chronic (4) Chronic hypoxemic respiratory failure Status: Chronic (5) Obstructive sleep apnea Status: Chronic (6) Morbid obesity Status: Chronic (7) Asthma Status: Chronic Qualifiers: Asthma severity: moderate Asthma persistence: persistent Asthma complication type: uncomplicated Qualified Code(s): J45.40 - Moderate persistent asthma, uncomplicated; J45.40 - Moderate persistent asthma, uncomplicated; J45.40 - Moderate persistent asthma, uncomplicated (8) HTN (hypertension) Status: Chronic Qualifiers: Hypertension type: essential hypertension Qualified Code(s): I10 - Essential (primary) hypertension (9) Obesity Status: Chronic Qualifiers: Obesity type: due to excess calories Obesity classification: adult class 2 (BMI 35 - 39.9) Serious obesity comorbidity presence: with serious comorbidity Body mass index: BMI 38.0-38.9 Qualified Code(s): E66.01 - Morbid (severe) obesity due to excess calories; Z68.38 - Body mass index (BMI) 38.0-38.9, adult (10) Type 2 diabetes mellitus Status: Chronic Reason for Consult Date of Consultation: 11/07/18 Reason for Consultation: Hypotension History of Present Illness: The patient is a 38 year old F with past medical history listed below and known to me as an outpatient, who presented to [facility] on 11/07[facility]18 secondary to lightheadedness, weakness and lethargy. Patient reported I started to feel funny at 5:00 yesterday. 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 Patient felt very weak and had to call out to her son to call EMS. Patient states that she thinks she lost consciousness in the interim, but was not sure. Patient was brought to the emergency department for further evaluation. On evaluation in the emergency department, patient was noted to be hypotensive at 84/59 with an irregular rhythm. Patient did have a leukocytosis and slightly elevated creatinine at 1.7. Lactate was elevated at 3.7, but UA was relatively unremarkable. Patient was given a total of 3 L of IV fluids. No antibiotics were ordered in the emergency room that I can tell. Patient was admitted to the intensive care unit without a central line. While in the intensive care unit, patient had reported some nausea and dry heaves. Patient also had some episodes of bradycardia with a resting heart rate in the 50s. Patient was noted on telemetry to be in junctional rhythm. This was confirmed by EKG. Approximately 815, patient became bradycardic into the 30s. Patient was given half amp of atropine with some improvement. Patient had to be initiated on dopamine therapy at that time. Central line has been placed. Patient denies any recent fever, chills, change in cough or chest pain. Patient has noted a mild sore throat that started yesterday at approximately 5 PM. No palpitations or dizziness had been reported. Patient denied any abdominal pain and had reported only one episode of diarrhea in the last 24 hours. Patient had had an emesis. Patient was unclear on when her last bowel movement was. Patient has been on her baseline nasal cannula oxygen. Review of systems otherwise negative x10 systems. No family has been at the bedside for confirmation of history or to provide additional information. Past Medical History Past Medical History (Chronic Problems): Chronic Problems (Last Reviewed 09/01/18 @ 09:12 by OSMANY Lux) Paroxysmal supraventricular tachycardia (Chronic) CHF (congestive heart failure) (Chronic) Restrictive airway disease (Chronic) Diaphragmatic hernia congenital (Chronic) Chronic hypoxemic respiratory failure (Chronic) Obstructive sleep apnea (Chronic) Morbid obesity (Chronic) Hypokalemia (Chronic) Asthma (Chronic) HTN (hypertension) (Chronic) Obesity (Chronic) Type 2 diabetes mellitus (Chronic) Medical History: Medical History (Last Reviewed 09/01/18 @ 09:12 by OSMANY Lux) Paroxysmal supraventricular tachycardia (Chronic) I47.1 CHF (congestive heart failure) (Chronic) I50.9 Restrictive airway disease (Chronic) J98.4 Diaphragmatic hernia congenital (Chronic) Q79.0 Chronic hypoxemic respiratory failure (Chronic) J96.11 Obstructive sleep apnea (Chronic) G47.33 Morbid obesity (Chronic) E66.01 Hypokalemia (Chronic) E87.6 Asthma (Chronic) J45.909 HTN (hypertension) (Chronic) I10 Obesity (Chronic) E66.9 Type 2 diabetes mellitus (Chronic) E11.9 RLQ intramuscular mass Abnormal electrocardiogram R94.31 Absence of menstruation N91.2 Adjustment disorder with depressed mood F43.21 Allergic rhinitis J30.9 BMI 40.0-44.9, adult Z68.41 Chronic hypoxemic respiratory failure J96.11 Congenital diaphragmatic hernia Q79.0 Diabetic autonomic neuropathy associated with type 2 diabetes mellitus E11.43 Edema R60.9 Fatty liver K76.0 Hypoxemia requiring supplemental oxygen R09.02, Z99.81 Lower urinary tract symptoms (LUTS) R39.9 Migraine without aura or status migrainosus G43.009 Mild intellectual disabilities F70 Nontoxic single thyroid nodule E04.1 Renal mass N28.89 Restrictive lung disease secondary to obesity J98.4, E66.8 Sleep related leg cramps G47.62 Stress incontinence in female N39.3 Uncontrolled type 2 diabetes mellitus without complication, without long-term current use of insulin E11.65 Varicose veins of both lower extremities with inflammation I83.11, I83.12 endometrioma right lower abdominal wall 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 planned incisional hernia right lower abdominal wall Asthma exacerbation (Inactive) J45.901 Community acquired pneumonia (Inactive) J18.9 Viral URI (Inactive) J06.9, B97.89 Allergies nabumetone Allergy (Unknown, Verified 09/01/18 08:37) Unknown hydrocodone bitartrate [From [place]] Allergy (Verified 09/01/18 08:37) Itching Penicillins Allergy (Verified 09/01/18 08:37) Swelling Home Medications: Ambulatory Orders Medication Instructions Recorded Metoprolol(XL)Succ [Toprol Xl 200 mg PO DAILY 02/10/14 (Beta Vishal)] Escitalopram Oxalate [Lexapro] 5 mg PO DAILY 10/23/15 Montelukast [Singulair] 10 mg PO QHS 04/21/16 Albuterol Aerosols [Ventolin 2.5 mg INHALATION Q4H PRN PRN 12/03/16 Aerosols] Albuterol Inhaler [Ventolin Hfa] 2 puff INHALATION Q4H PRN PRN 12/03/16 Dicyclomine HCl [Bentyl] 10 mg PO ACHS 12/03/16 Ipratropium/Albuterol Sulfate 3 ml INHALATION Q6H.RT PRN 03/02/17 [Duoneb] Metolazone [Zaroxolyn] 5 mg PO Q7D 12/03/16 Multivitamin with Folic Acid 1 ea PO DAILY 12/03/16 [Thera Tablet] furosemide 40 mg tablet 20 mg PO BID tab 09/24/17 gabapentin 100 mg capsule 100 mg PO TID cap 09/24/17 Omeprazole 20 mg PO DAILY 11/30/17 Spironolactone [Aldactone] 25 mg PO BID 11/30/17 Verapamil HCl [Verapamil ER] 240 mg PO BID 11/30/17 Ondansetron [Zofran Odt] 4 mg PO Q8H PRN #21 tab.rapdis 12/03/17 skin protectants, misc. pads See Rx Instructions TOPICAL 12/14/17 .COMPLEX #126 pad MDD 4 pad per day potassium chloride ER 20 mEq 40 meq PO DAILY tab 04/11/18 tablet,extended release(part/cryst) Fluticasone/Salmeterol [Advair 1 puff INHALATION BID 04/22/18 250/50 Mcg Diskus] Dulaglutide [Trulicity] 1.5 mg SQ QWEEK 11/07/18 Topiramate [Trokendi Xr] 50 mg PO QHS 11/07/18 Surgical History: Surgical History (Last Reviewed 09/01/18 @ 09:12 by OSMANY Lux) History of throat surgery Z98.890 c section tubal ligation chest surgery Surgical History: - - hysterectomy, tubal ligation, cardiac surgery of unclear reason. She mentioned that she has abnormal positioned heart and she went for surgery for it. History of lung surgery and possible chest tubes. 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 Objective: Chest x-ray was personally reviewed. This does not appear to have significant changes from baseline. - Physical Exam General: Alert, Oriented x3, Cooperative, No apparent distress, - - Morbidly obese. Short-term memory loss at baseline. HEENT: Atraumatic, PERRLA, EOMI, Normocephalic, - - No scleral icterus or injection noted. Oral: Moist Mucosa, No Gingival or Mucosal Lesions/ Ulcerations, - - Crowded posterior pharynx Neck: Supple, No JVD, No Nodes, Trachea Midline Lungs: No rhonchi, No wheeze, No rales, Diminished, - - Symmetric expansion. No dullness to percussion. Cardiovascular: Normal S1, Normal S2, No murmurs, Irregular Rate, No rub noted, No Gallop, - - Echocardiogram has been completed, but no formal results at this time. Abdomen: Bowel Sounds Present, Soft, Non Tender, Non-Distended, Obese Extremities: No cyanosis, Clubbing, Diminished Peripheral Pulses, Edema Skin: No rashes, No breakdown Musculoskeletal: No Tenderness to Palpation of Joints or Extremities, No Muscle Wasting Lymphatic: No Cervical, Supraclavicular, or Inguinal Adenopathy Neurological: Cranial nerves II-XII grossly intact, Neuro grossly intact, Motor Exam 5/5 strength throughout Psych/Mental Status: Anxious, Impulsive Vital Signs Temp Pulse Resp BP Pulse Ox 37.2 C 68 42 H 109/55 L 94 11/07/18 10:55 11/07/18 10:55 11/07/18 10:55 11/07/18 10:55 11/07/18 10:55 Oxygen Flow Rate (L/min) 2 Oxygen Delivery Method Nasal Cannula Weight: 122.1 kg Body Mass Index (BMI) 40.9 Finger Stick Blood Glucose 111 Laboratory Tests Past 24 Hrs 11/07/18 11/07/18 11/07/18 03:20 03:20 03:20 WBC 14.2 H RBC 5.18 Hgb 13.9 Hct 43.6 MCV 84.2 MCH 26.8 L MCHC 31.9 L RDW 13.6 RDW Differential 41.1 Plt Count 303 MPV 10.0 Immature Gran % (Auto) 0.400 Neut % (Auto) 55.7 Lymph % (Auto) 37.1 [place] % (Auto) 5.8 Eos % (Auto) 0.8 Baso % (Auto) 0.2 Absolute Neuts (auto) 7.9 H Absolute Lymphs (auto) 5.25 H Total Counted Not Reportable PT INR APTT Sodium 137 Potassium 4.3 Chloride 100 Carbon Dioxide 25.0 Anion Gap 12 BUN 17 Creatinine 1.70 H Estim Creat Clear Calc 46.15 Est GFR (MDRD) Af Amer 44 L Est GFR (MDRD) Non-Af 36 L BUN/Creatinine Ratio 10.0 Glucose 263 H Lactic Acid 3.7 H Calcium 8.3 L Troponin I < 0.015 Urine Color Urine Clarity Urine pH Ur Specific [place] Urine Protein Urine Glucose (UA) Urine Ketones Urine Occult Blood Urine Nitrite Urine Bilirubin Urine Urobilinogen Ur Leukocyte Esterase Urine RBC Urine WBC Ur Squamous Epith Cells Urine Bacteria Hyaline Casts Urine Mucus Urine Creatinine Urine Urea Nitrogen 11/07/18 11/07/18 11/07/18 04:05 04:05 04:05 WBC RBC Hgb Hct MCV MCH MCHC RDW RDW Differential Plt Count MPV Immature Gran % (Auto) Neut % (Auto) Lymph % (Auto) [place] % (Auto) Eos % (Auto) Baso % (Auto) Absolute Neuts (auto) Absolute Lymphs (auto) Total Counted PT INR APTT Sodium Potassium Chloride Carbon Dioxide Anion Gap BUN Creatinine Estim Creat Clear Calc Est GFR (MDRD) Af Amer Est GFR (MDRD) Non-Af BUN/Creatinine Ratio Glucose Lactic Acid Calcium Troponin I Urine Color Yellow Urine Clarity Cloudy Urine pH 5.0 Ur Specific [place] 1.025 Urine Protein 100 H Urine Glucose (UA) Normal Urine Ketones 5 H Urine Occult Blood Negative Urine Nitrite Negative Urine Bilirubin 1 H Urine Urobilinogen 1 H Ur Leukocyte Esterase 100 H Urine RBC 0 SEEN Urine WBC 0-5 SEEN Ur Squamous Epith Cells 0-5 SEEN Urine Bacteria RARE Hyaline Casts 0-5 SEEN Urine Mucus 3+ Urine Creatinine 373.00 Urine Urea Nitrogen 717 11/07/18 11/07/18 07:25 08:10 WBC RBC Hgb Hct MCV MCH MCHC RDW RDW Differential Plt Count MPV Immature Gran % (Auto) Neut % (Auto) Lymph % (Auto) [place] % (Auto) Eos % (Auto) Baso % (Auto) Absolute Neuts (auto) Absolute Lymphs (auto) Total Counted PT 14.0 INR 1.1 APTT 27.1 Sodium Potassium Chloride Carbon Dioxide Anion Gap BUN Creatinine Estim Creat Clear Calc Est GFR (MDRD) Af Amer Est GFR (MDRD) Non-Af BUN/Creatinine Ratio Glucose Lactic Acid 1.9 Calcium Troponin I Urine Color Urine Clarity Urine pH Ur Specific [place] Urine Protein Urine Glucose (UA) Urine Ketones Urine Occult Blood Urine Nitrite Urine Bilirubin Urine Urobilinogen Ur Leukocyte Esterase Urine RBC Urine WBC Ur Squamous Epith Cells Urine Bacteria Hyaline Casts Urine Mucus Urine Creatinine Urine Urea Nitrogen Clinical Impression(s) from Imaging Studies Chest X-Ray 11/07/18 03:30 IMPRESSION: No acute cardiopulmonary disease. No significant interval change. Electronically Signed: Cyndi Escalante MD at 3:48 EST , Service support , Assessment/Plan RECOMMENDATIONS: 1. Consult cardiology 2. Wean dopamine drip as necessary for hypotension 3. Await echocardiogram 4. Monitor oxygen saturations closely 5. Empiric antibiotics. C. difficile testing with next stool 6. Hold metoprolol and verapamil IMPRESSIONS: 1. Hypotension Unclear etiology at this time. Patient did have tachypnea and leukocytosis on presentation. Patient has had one episode of diarrhea. Patient has been initiated on antibiotics, which I believe is appropriate initially. Patient has had a junctional type rhythm with bradycardia noted. Patient has been initiated on dopamine therapy. Cardiology will be consulted. Echocardiogram is currently pending. Patient is on extensive diuretic therapy. Patient reports only one episode of diarrhea, so volume loss is likely minimal from that respect. Patient now has a central line. Will attempt to hold off on further fluids as patient does have a history of diastolic heart failure. 2. Acute kidney injury Likely secondary to #1. Patient baseline creatinine appears to be less than 1. Current creatinine is 1.7. Patient has received 30 cc/kg IV fluids. Fractional excretion of urea has been ordered given patient's baseline diuretic therapy. No indication for renal replacement therapy at this time 3. Chronic diastolic congestive heart failure/chronic A. fib/junctional rhythm Vision with a previous echocardiogram completed in 2016 showing an EF of 65%. Patient is on rate control and extensive diuretic therapy at home. Cardiology will be consulted. Patient is also had a junctional rhythm noted. Patient is on metoprolol and verapamil at baseline. Both these have been held. 4. Diabetes mellitus Patient does not appear to be well controlled at this time. Defer to hospitalist on whether her hemoglobin A1c will be ordered. Patient will be placed on a diabetic diet with Accu-Cheks and sliding scale insulin. 5. 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 Patient is on substitution therapy for home inhalers. Do not believe patient is not in acute exacerbation, but will need to be followed closely as saturations may drop precipitously if patient develops congestive heart failure. 6. Morbid obesity/RICH/history of diaphragmatic hernia/hypertension/poor historian Complicates care, management, recovery and prognosis. Baseline antihypertensive medications have been held given hypotension. This will likely be reinitiated in a stepwise fashion. TIME: 45 minutes of critical care time spent addressing patient's bradycardia, hypotension, CHF, diabetes mellitus, chronic hypoxic respiratory failure, review of all data and collaboration with care team (7 AM to 11:30 AM) Code Visit 9xxxx: [id number] Critical care first hour
--- NOTE | 2018-11-07 11:16 | CON.PCM_ITS ---
Problem List (1) CHF (congestive heart failure) Status: Chronic Qualifiers: Heart failure type: unspecified Heart failure chronicity: unspecified Qualified Code(s): I50.9 - Heart failure, unspecified (2) Restrictive airway disease Status: Chronic (3) Diaphragmatic hernia congenital Status: Chronic (4) Chronic hypoxemic respiratory failure Status: Chronic (5) Obstructive sleep apnea Status: Chronic (6) Morbid obesity Status: Chronic (7) Asthma Status: Chronic Qualifiers: Asthma severity: moderate Asthma persistence: persistent Asthma complication type: uncomplicated Qualified Code(s): J45.40 - Moderate persistent asthma, uncomplicated; J45.40 - Moderate persistent asthma, unc omplicated; J45.40 - Moderate persistent asthma, uncomplicated (8) HTN (hypertension) Status: Chronic Qualifiers: Hypertension type: essential hypertension Qualified Code(s): I10 - Essential (primary) hypertension (9) Obesity Status: Chronic Qualifiers: Obesity type: due to excess calories Obesity classification: adult class 2 (BMI 35 - 39.9) Serious obesity comorbidity presence: with serious comorbidity Body mass index: BMI 38.0-38.9 Qualified Code(s): E66.01 - Morbid (severe) obesity due to excess calories; Z68.38 - Body mass index (BMI) 38.0-38.9, adult (10) Type 2 diabetes mellitus Status: Chronic Reason for Consult Date of Consultation: 11/07/18 Reason for Consultation: Hypotension History of Present Illness: The patient is a 38 year old F with past medical history listed below and known to me as an outpatient, who presented to [facility] on 11/07/18 secondary to lightheadedness, weakness and lethargy. Patient reported I started to feel funny at 5:00 yesterday. Patient had woke up at the director peoplesoft hours to go to the bathroom, but lost fecal control. Patient felt very weak and had to call out to her son to call EMS. Patient states that she thinks she lost consciousness in the interim, but was not sure. Patient was brought to the emergency department for further evaluation. On evaluation in the emergency department, patient was noted to be hypotensive at 84/59 with an irregular rhythm. Patient did have a leukocytosis and slightly elevated creatinine at 1.7. Lactate was elevated at 3.7, but UA was relatively unremarkable. Patient was given a total of 3 L of IV fluids. No antibiotics were ordered in the emergency room that I can tell. Patient was admitted to the intensive care unit without a central line. While in the intensive care unit, patient had reported some nausea and dry heaves. Patient also had some episodes of bradycardia with a resting heart rate in the 50s. Patient was noted on telemetry to be in junctional rhythm. This was confirmed by EKG. Approximately 815, patient became bradycardic into the 30s. Patient was given half amp of atropine with some improvement. Patient had to be initiated on dopamine therapy at that time. Central line has been placed. Patient denies any recent fever, chills, change in cough or chest pain. Patient has noted a mild sore throat that started yesterday at approximately 5 PM. No palpitations or dizziness had been reported. Patient denied any abdominal pain and had reported only one episode of diarrhea in the last 24 hours. Patient had had an emesis. Patient was unclear on when her last bowel movement was. Patient has been on her baseline nasal cannula oxygen. Review of systems otherwise negative x10 systems. No family has been at the bedside for confirmation of history or to provide additional information. Past Medical History Past Medical History (Chronic Problems): Chronic Problems (Last Reviewed 09/01/18 @ 09:12 by OSMANY Lux) Paroxysmal supraventricular tachycardia (Chronic) CHF (congestive heart failure) (Chronic) Restrictive airway disease (Chronic) Diaphragmatic hernia congenital (Chronic) Chronic hypoxemic respiratory failure (Chronic) Obstructive sleep apnea (Chronic) Morbid obesity (Chronic) Hypokalemia (Chronic) Asthma (Chronic) HTN (hypertension) (Chronic) Obesity (Chronic) Type 2 diabetes mellitus (Chronic) Medical History: Medical History (Last Reviewed 09/01/18 @ 09:12 by OSMANY Lux) Paroxysmal supraventricular tachycardia (Chronic) I47.1 CHF (congestive heart failure) (Chronic) I50.9 Restrictive airway disease (Chronic) J98.4 Diaphragmatic hernia congenital (Chronic) Q79.0 Chronic hypoxemic respiratory failure (Chronic) J96.11 Obstructive sleep apnea (Chronic) G47.33 Morbid obesity (Chronic) E66.01 Hypokalemia (Chronic) E87.6 Asthma (Chronic) J45.909 HTN (hypertension) (Chronic) I10 Obesity (Chronic) E66.9 Type 2 diabetes mellitus (Chronic) E11.9 RLQ intramuscular mass Abnormal electrocardiogram R94.31 Absence of menstruation N91.2 Adjustment disorder with depressed mood F43.21 Allergic rhinitis J30.9 BMI 40.0-44.9, adult Z68.41 Chronic hypoxemic respiratory failure J96.11 Congenital diaphragmatic hernia Q79.0 Diabetic autonomic neuropathy associated with type 2 diabetes mellitus E11.43 Edema R60.9 Fatty liver K76.0 Hypoxemia requiring supplemental oxygen R09.02, Z99.81 Lower urinary tract symptoms (LUTS) R39.9 Migraine without aura or status migrainosus G43.009 Mild intellectual disabilities F70 Nontoxic single thyroid nodule E04.1 Renal mass N28.89 Restrictive lung disease secondary to obesity J98.4, E66.8 Sleep related leg cramps G47.62 Stress incontinence in female N39.3 Uncontrolled type 2 diabetes mellitus without complication, without long-term current use of insulin E11.65 Varicose veins of both lower extremities with inflammation I83.11, I83.12 endometrioma right lower abdominal wall 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 planned incisional hernia right lower abdominal wall Asthma exacerbation (Inactive) J45.901 Community acquired pneumonia (Inactive) J18.9 Viral URI (Inactive) J06.9, B97.89 Allergies nabumetone Allergy (Unknown, Verified 09/01/18 08:37) Unknown hydrocodone bitartrate [From [place]] Allergy (Verified 09/01/18 08:37) Itching Penicillins Allergy (Verified 09/01/18 08:37) Swelling Home Medications: Ambulatory Orders Medication Instructions Recorded Metoprolol(XL)Succ [Toprol Xl 200 mg PO DAILY 02/10/14 (Beta Vishal)] Escitalopram Oxalate [Lexapro] 5 mg PO DAILY 10/23/15 Montelukast [Singulair] 10 mg PO QHS 04/21/16 Albuterol Aerosols [Ventolin 2.5 mg INHALATION Q4H PRN PRN 12/03/16 Aerosols] Albuterol Inhaler [Ventolin Hfa] 2 puff INHALATION Q4H PRN PRN 12/03/16 Dicyclomine HCl [Bentyl] 10 mg PO ACHS 12/03/16 Ipratropium/Albuterol Sulfate 3 ml INHALATION Q6H.RT PRN 12/03/16 [Duoneb] Metolazone [Zaroxolyn] 5 mg PO Q7D 12/03/16 Multivitamin with Folic Acid 1 ea PO DAILY 12/03/16 [Thera Tablet] furosemide 40 mg tablet 20 mg PO BID tab 09/24/17 gabapentin 100 mg capsule 100 mg PO TID cap 09/24/17 Omeprazole 20 mg PO DAILY 11/30/17 Spironolactone [Aldactone] 25 mg PO BID 11/30/17 Verapamil HCl [Verapamil ER] 240 mg PO BID 11/30/17 Ondansetron [Zofran Odt] 4 mg PO Q8H PRN #21 tab.rapdis 12/03/17 skin protectants, misc. pads See Rx Instructions TOPICAL 12/14/17 .COMPLEX #126 pad MDD 4 pad per day potassium chloride ER 20 mEq 40 meq PO DAILY tab 04/11/18 tablet,extended release(part/cryst) Fluticasone/Salmeterol [Advair 1 puff INHALATION BID 04/22/18 250/50 Mcg Diskus] Dulaglutide [Trulicity] 1.5 mg SQ QWEEK 11/07/18 Topiramate [Trokendi Xr] 50 mg PO QHS 11/07/18 Surgical History: Surgical History (Last Reviewed 09/01/18 @ 09:12 by OSMANY Lux) History of throat surgery Z98.890 c section tubal ligation chest surgery Surgical History: - - hysterectomy, tubal ligation, cardiac surgery of unclear reason. She mentioned that she has abnormal positioned heart and she went for surgery for it. History of lung surgery and possible chest tubes. 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 Objective: Chest x-ray was personally reviewed. This does not appear to have significant changes from baseline. - Physical Exam General: Alert, Oriented x3, Cooperative, No apparent distress, - - Morbidly obese. Short-term memory loss at baseline. HEENT: Atraumatic, PERRLA, EOMI, Normocephalic, - - No scleral icterus or injection noted. Oral: Moist Mucosa, No Gingival or Mucosal Lesions/ Ulcerations, - - Crowded posterior pharynx Neck: Supple, No JVD, No Nodes, Trachea Midline Lungs: No rhonchi, No wheeze, No rales, Diminished, - - Symmetric expansion. No dullness to percussion. Cardiovascular: Normal S1, Normal S2, No murmurs, Irregular Rate, No rub noted, No Gallop, - - Echocardiogram has been completed, but no formal results at this time. Abdomen: Bowel Sounds Present, Soft, Non Tender, Non-Distended, Obese Extremities: No cyanosis, Clubbing, Diminished Peripheral Pulses, Edema Skin: No rashes, No breakdown Musculoskeletal: No Tenderness to Palpation of Joints or Extremities, No Muscle Wasting Lymphatic: No Cervical, Supraclavicular, or Inguinal Adenopathy Neurological: Cranial nerves II-XII grossly intact, Neuro grossly intact, Motor Exam 5/5 strength throughout Psych/Mental Status: Anxious, Impulsive Vital Signs Temp Pulse Resp BP Pulse Ox 37.2 C 68 42 H 109/55 L 94 11/07/18 10:55 11/07/18 10:55 11/07/18 10:55 11/07/18 10:55 11/07/18 10:55 Oxygen Flow Rate (L/min) 2 Oxygen Delivery Method Nasal Cannula Weight: 122.1 kg Body Mass Index (BMI) 40.9 Finger Stick Blood Glucose 111 Laboratory Tests Past 24 Hrs 11/07/18 11/07/18 11/07/18 03:20 03:20 03:20 WBC 14.2 H RBC 5.18 Hgb 13.9 Hct 43.6 MCV 84.2 MCH 26.8 L MCHC 31.9 L RDW 13.6 RDW Differential 41.1 Plt Count 303 MPV 10.0 Immature Gran % (Auto) 0.400 Neut % (Auto) 55.7 Lymph % (Auto) 37.1 Borden % (Auto) 5.8 Eos % (Auto) 0.8 Baso % (Auto) 0.2 Absolute Neuts (auto) 7.9 H Absolute Lymphs (auto) 5.25 H Total Counted Not Reportable PT INR APTT Sodium 137 Potassium 4.3 Chloride 100 Carbon Dioxide 25.0 Anion Gap 12 BUN 17 Creatinine 1.70 H Estim Creat Clear Calc 46.15 Est GFR (MDRD) Af Amer 44 L Est GFR (MDRD) Non-Af 36 L BUN/Creatinine Ratio 10.0 Glucose 263 H Lactic Acid 3.7 H Calcium 8.3 L Troponin I < 0.015 Urine Color Urine Clarity Urine pH Ur Specific [place] Urine Protein Urine Glucose (UA) Urine Ketones Urine Occult Blood Urine Nitrite Urine Bilirubin Urine Urobilinogen Ur Leukocyte Esterase Urine RBC Urine WBC Ur Squamous Epith Cells Urine Bacteria Hyaline Casts Urine Mucus Urine Creatinine Urine Urea Nitrogen 11/07/18 11/07/18 11/07/18 04:05 04:05 04:05 WBC RBC Hgb Hct MCV MCH MCHC RDW RDW Differential Plt Count MPV Immature Gran % (Auto) Neut % (Auto) Lymph % (Auto) Borden % (Auto) Eos % (Auto) Baso % (Auto) Absolute Neuts (auto) Absolute Lymphs (auto) Total Counted PT INR APTT Sodium Potassium Chloride Carbon Dioxide Anion Gap BUN Creatinine Estim Creat Clear Calc Est GFR (MDRD) Af Amer Est GFR (MDRD) Non-Af BUN/Creatinine Ratio Glucose Lactic Acid Calcium Troponin I Urine Color Yellow Urine Clarity Cloudy Urine pH 5.0 Ur Specific [place] 1.025 Urine Protein 100 H Urine Glucose (UA) Normal Urine Ketones 5 H Urine Occult Blood Negative Urine Nitrite Negative Urine Bilirubin 1 H Urine Urobilinogen 1 H Ur Leukocyte Esterase 100 H Urine RBC 0 SEEN Urine WBC 0-5 SEEN Ur Squamous Epith Cells 0-5 SEEN Urine Bacteria RARE Hyaline Casts 0-5 SEEN Urine Mucus 3+ Urine Creatinine 373.00 Urine Urea Nitrogen 717 11/07/18 11/07/18 07:25 08:10 WBC RBC Hgb Hct MCV MCH MCHC RDW RDW Differential Plt Count MPV Immature Gran % (Auto) Neut % (Auto) Lymph % (Auto) Borden % (Auto) Eos % (Auto) Baso % (Auto) Absolute Neuts (auto) Absolute Lymphs (auto) Total Counted PT 14.0 INR 1.1 APTT 27.1 Sodium Potassium Chloride Carbon Dioxide Anion Gap BUN Creatinine Estim Creat Clear Calc Est GFR (MDRD) Af Amer Est GFR (MDRD) Non-Af BUN/Creatinine Ratio Glucose Lactic Acid 1.9 Calcium Troponin I Urine Color Urine Clarity Urine pH Ur Specific [place] Urine Protein Urine Glucose (UA) Urine Ketones Urine Occult Blood Urine Nitrite Urine Bilirubin Urine Urobilinogen Ur Leukocyte Esterase Urine RBC Urine WBC Ur Squamous Epith Cells Urine Bacteria Hyaline Casts Urine Mucus Urine Creatinine Urine Urea Nitrogen Clinical Impression(s) from Imaging Studies Chest X-Ray 11/07/18 03:30 IMPRESSION: No acute cardiopulmonary disease. No significant interval change. Electronically Signed: Cyndi Escalante MD at 3:48 EST , Service support , Assessment/Plan RECOMMENDATIONS: 1. Consult cardiology 2. Wean dopamine drip as necessary for hypotension 3. Await echocardiogram 4. Monitor oxygen saturations closely 5. Empiric antibiotics. C. difficile testing with next stool 6. Hold metoprolol and verapamil IMPRESSIONS: 1. Hypotension Unclear etiology at this time. Patient did have tachypnea and leuk ocytosis on presentation. Patient has had one episode of diarrhea. Patient has been initiated on antibiotics, which I believe is appropriate initially. Patient has had a junctional type rhythm with bradycardia noted. Patient has been initiated on dopamine therapy. Cardiology will be consulted. Echocardiogram is currently pending. Patient is on extensive diuretic therapy. Patient reports only one episode of diarrhea, so volume loss is likely minimal from that respect. Patient now has a central line. Will attempt to hold off on further fluids as patient does have a history of diastolic heart failure. 2. Acute kidney injury Likely secondary to #1. Patient baseline creatinine appears to be less than 1. Current creatinine is 1.7. Patient has received 30 cc/kg IV fluids. Fractional excretion of urea has been ordered given patient's baseline diuretic therapy. No indication for renal replacement therapy at this time 3. Chronic diastolic congestive heart failure/chronic A. fib/junctional rhythm Vision with a previous echocardiogram completed in 2016 showing an EF of 65%. Patient is on rate control and extensive diuretic therapy at home. Cardiology will be consulted. Patient is also had a junctional rhythm noted. Patient is on metoprolol and verapamil at baseline. Both these have been held. 4. Diabetes mellitus Patient does not appear to be well controlled at this time. Defer to hospitalist on whether her hemoglobin A1c will be ordered. Patient will be placed on a diabetic diet with Accu-Cheks and sliding scale insulin. 5. 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 Patient is on substitution therapy for home inhalers. Do not believe patient is not in acute exacerbation, but will need to be followed jimbo sely as saturations may drop precipitously if patient develops congestive heart failure. 6. Morbid obesity/RICH/history of diaphragmatic hernia/hypertension/poor historian Complicates care, management, recovery and prognosis. Baseline antihypertensive medications have been held given hypotension. This will likely be reinitiated in a stepwise fashion. TIME: 45 minutes of critical care time spent addressing patient's bradycardia, hypotension, CHF, diabetes mellitus, chronic hypoxic respiratory failure, review of all data and collaboration with care team (7 AM to 11:30 AM) Code Visit 9xxxx: [id number] Critical care first hour
--- NOTE | 2018-11-07 11:44 | PCM.OP.BLANK ---
Operative Report Date of Procedure: 11/07/18 - Triple-lumen catheter insertion Central line placement procedure note Indication: IV access/hemodynamic instability/vasoactive medications Procedure: A time-out was completed to verify correct patient, indication, medication allergies, procedure, coagulation studies, informed consent signed, and equipment needed. The patient was placed in the supine position for a central line placement to the rt IJ vein. The patients rt neck was prepped using chlorhexidine and a full body sterile drape was applied. 1% lidocaine was used to anesthetize the surrounding skin. A 7fr 16 cm blue guard triple lumen catheter introduced into the internal jugular vein using the modified Seldinger technique with the assistance of ultrasound. The catheter was threaded smoothly over the guidewire, the guidewire was removed easily, nonpulsatile blood returned. All ports were aspirated of air and flushed with sterile saline. The catheter was sutured in place and covered with an occlusive dressing impregnated with chlorhexidine. Post-procedure: The patient tolerated the procedure well. Vital signs remained stable. EBL 5cc. No complications. Chest X Ray ordered to confirm tip placement and the absence of pneumothorax. Code Visit Procedures: 15027 Insert Non-tunnel CV Cath
--- NOTE | 2018-11-07 12:05 | CASEMGMT ---
Addendum entered by Mickey Fisher 11/07/18 12:46: Call received from Jose J Geller coverage CM to state pt does have services through Original Note: RN CM Assessment Presentation: syncopal episode @ home, weakness, lethargy. Lctic acid 3.7, WBC 14.2. Hypotensive- IV resuscitation in ER, then to ICU; Dopamine gtt. Bradycardia- cardiology consult. Intro role of CM and purpose of RN CM assessment. Pt is not feeling well, recent emesis. PCP: Dr. Cohn Specialists: Dr. Brown- [place] as Outpt. Preferred Pharmacy: [place] preferred. Insurance: [employer]. Prescription Benefit: yes LNOK: Harlan Cage Living Arrangements: Lives independently. Care assist if needed, provided by . Pt has Blood glucose monitoring equipment, but may benefit from further teaching. Transportation: [employer] or family. DME: 2L [place] through [facility]. BSC, Doug, rollator, Medical Alert HHC: participant [facility] program. CM: Darby Rhoades. Pt is not receiving active services at this time. DC PLAN: anticipate home. PT/OT evaluations pending, pt remains in ICU and has not passed mobility screening yet. Louisa FONTENOTN RN ACM
--- NOTE | 2018-11-07 12:50 | CASEMGMT ---
Addendum entered by Mickey Fisher 11/08/18 11:55: CM Darby Rhoades phone# [phone]. Original Note: RN CM Assessment Presentation: syncopal episode @ home, weakness, lethargy. Lctic acid 3.7, WBC 14.2. Hypotensive- IV resuscitation in ER, then to ICU; Dopamine gtt. Bradycardia- cardiology consult. Intro role of CM and purpose of RN CM assessment. Pt is not feeling well, recent emesis. PCP: Dr. Cohn Specialists: Dr. Brown- sees as Outpt. Preferred Pharmacy: [place] preferred. Insurance: [employer]. Prescription Benefit: yes LNOK: Harlan Cage Living Arrangements: Lives independently. Care assist if needed, provided by . Pt has Blood glucose monitoring equipment, but may benefit from further teaching. Pt states she goes to [employer] 2x week for activities. Transportation: drives her. DME: 2L [place] through [employer]. CPAP, nebulizer, BSC, Walker, rollator, Medical Alert. Pt states if feeling well, does not use ambulatory DME. HHC: participant [facility] program. CM: Darby Rhoades. Pt is not receiving active services at this time. DC PLAN: anticipate home. PT/OT evaluations pending, pt remains in ICU and has not passed mobility screening yet. Louisa BRANDON RN AC
[2018-11-07] MEDS: Albuterol 2.5 MG/3 ML VIAL.NEB. INHALATION ×2 (12:53→18:35)
[2018-11-07] MEDS: Heparin Injection (Vial) 5,000 UNIT/ML VIAL 5000 UNIT SC ×2 (15:04→21:26)
[2018-11-07 15:46] LABS: Bedside Glucose 117 mg/dL (70-110)
--- NOTE | 2018-11-07 16:44 | PCM.CONS.C ---
Reason for Consult Date of Consultation: 11/07/18 Reason for Consultation: Slow heart rate History of Present Illness: The patient is a 38 year old F with an extensive PMH She was admitted through the ED with a complaint of lightheadedness, weakness and lethargy. Patient states she woke up to go to the bathroom in the early hours of this morning but was unable to get to the bathroom and had to have a bowel movement on herself. She felt very weak to get up and had to call out until his son came to try to help her up. Therefore called the EMS. She says she thinks he passed out and could not really do with the EMS was instructed her to do. She was therefore brought into the ED. She denied any assisted fever or chills, any cough or chest pain but only complained of a sore throat. She denied any palpitations or dizziness and states she had noted that her heart rate was much lower than usual. She denied any abdominal pain and had had only one episode of diarrhea and also vomiting today. Review of systems otherwise negative. On admission the ED, she was found to have blood pressure of 79/59. Her heart rate was also low at about 55 when she came in she was also tachypneic with respiratory rate of 22.. Labs showed creatinine of 1.7 with a baseline being less than 1. Lactic acid was elevated at 3.7 white cell count was 14.2. Initial troponin was negative. Chest x-ray showed no acute cardiopulmonary disease. She was apparently admitted to the intensive care unit with a diagnosis of septic shock. I was called to see her because she was noted to be bradycardic and there was a concern as to whether she would need a permanent pacemaker. Past Medical History Allergies/Adverse Reactions: Allergies nabumetone Allergy (Unknown, Verified 09/01/18 08:37) Unknown hydrocodone bitartrate [From [place]] Allergy (Verified 09/01/18 08:37) Itching Penicillins Allergy (Verified 09/01/18 08:37) Swelling Home Medications: Ambulatory Orders Medication Instructions Recorded Metoprolol(XL)Succ [Toprol Xl 200 mg PO DAILY 02/10/14 (Beta Taty)] Montelukast [Singulair] 10 mg PO QHS 04/21/16 Albuterol Aerosols [Ventolin 2.5 mg INHALATION Q4H PRN PRN 12/03/16 Aerosols] Dicyclomine HCl [Bentyl] 10 mg PO ACHS 12/03/16 Metolazone [Zaroxolyn] 5 mg PO Q7D 12/03/16 furosemide 40 mg tablet 20 mg PO BID tab 09/24/17 gabapentin 100 mg capsule 100 mg PO TID cap 09/24/17 Spironolactone [Aldactone] 25 mg PO BID 11/30/17 Verapamil HCl [Verapamil ER] 240 mg PO BID 11/30/17 potassium chloride ER 20 mEq 10 meq PO BID tab 04/11/18 tablet,extended release(part/cryst) Ascorbic Acid [Vitamin C] 500 mg PO DAILY@0800 11/07/18 Cetirizine HCl [Zyrtec] 10 mg PO DAILY PRN PRN 11/07/18 Cholecalciferol (Vitamin D3) 5,000 unit PO DAILY 11/07/18 [Vitamin D3] Dulaglutide [Trulicity] 1.5 mg SQ QWEEK 11/07/18 Lisinopril 5 mg PO DAILY 11/07/18 Metformin HCl 500 mg PO DAILY 11/07/18 Pantoprazole Sodium [Protonix] 40 mg PO DAILY 11/07/18 Sertraline HCl [Zoloft] 100 mg PO DAILY 11/07/18 Topiramate [Trokendi Xr] 50 mg PO QHS 11/07/18 Past Medical History (Chronic Problems): Chronic Problems (Last Reviewed 09/01/18 @ 09:12 by OSMANY Lux) Paroxysmal supraventricular tachycardia (Chronic) CHF (congestive heart failure) (Chronic) Restrictive airway disease (Chronic) Diaphragmatic hernia congenital (Chronic) Chronic hypoxemic respiratory failure (Chronic) Obstructive sleep apnea (Chronic) Morbid obesity (Chronic) Hypokalemia (Chronic) Asthma (Chronic) HTN (hypertension) (Chronic) Obesity (Chronic) Type 2 diabetes mellitus (Chronic) Surgical History: - - hysterectomy, tubal ligation, cardiac surgery of unclear reason. She mentioned that she has abnormal positioned heart and she went for surgery for it. History of lung surgery and possible chest tubes. 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 Denies: Fever, Night Sweats HEENT: Denies: Vision Change Cardiovascular: Reports: Lightheadedness, Dizziness, Near Syncope. Denies: Chest Discomfort, Shortness of Breath, Orthopnea, PND, Peripheral Edema, Palpitations, Syncope Respiratory: Denies: Cough, Sputum Production, Hemoptysis Gastrointestinal: Denies: Hematemesis, Hematochezia, Melena Genitourinary: Denies: Dysuria, Hematuria Muscoloskeletal: Denies: Myalgias Skin: Denies: Rash Neurological: Reports: Dizziness Psychiatric: Denies: Anxiety Endocrine: Denies: Excessive Sweating Hematologic/ Lymphatic: Denies: Anemia Subjectve: Young lady in no apparent distress Objective: Vital Signs Temp Pulse Resp BP Pulse Ox 99.4 F H 70 29 H 105/83 H 95 11/07/18 16:00 11/07/18 16:15 11/07/18 16:15 11/07/18 16:15 11/07/18 16:15 Oxygen Flow Rate (L/min) 2 Oxygen Delivery Method Nasal Cannula Weight: 269 lb 2.951 oz Body Mass Index (BMI) 40.9 Finger Stick Blood Glucose 111 Intake and Output for Last 24 Hours 11/05/18 11/06/18 11/07/18 23:59 23:59 23:59 Intake Total 305 / 305 Output Total 300 / 300 Balance 5 / 5 General: Awake, Alert, Oriented x 3 HEENT: PERRL, EOMI, Sclera Non Icteric Neck: Supple, Good ROM, No Lymph Node Enlargement Lungs: Clear to auscultation Cardiovascular: Regular Rhythm, Normal S1, Normal S2, No Murmurs, No Rubs, No Gallops Vascular: No Carotid Bruits, Normal Femoral Pulses, Normal Radial Pulses, Normal Dorsalis Pedal Pulse, Normal Posterior Tibial Pulses Abdomen: Bowel Sounds Present, Soft, Non Tender, No HSM, No Organomegaly Extremities: No Cyanosis, No Clubbing, No edema Skin: No Rashes Lymphatic: No Lymph Node Enlargement Neurological: No Focal Motor or Sensory Deficit Psych/Mental Status: Appropriate 11/07/18 03:20: WBC 14.2 H, RBC 5.18, Hgb 13.9, Hct 43.6, MCV 84.2, MCH 26.8 L, MCHC 31.9 L, RDW 13.6, RDW Differential 41.1, Plt Count 303, MPV 10.0, Immature Gran % (Auto) 0.400, Neut % (Auto) 55.7, Lymph % (Auto) 37.1, [place] % (Auto) 5.8, Eos % (Auto) 0.8, Baso % (Auto) 0.2, Absolute Neuts (auto) 7.9 H, Total Counted Not Reportable 11/07/18 03:20: Sodium 137, Potassium 4.3, Chloride 100, Carbon Dioxide 25.0, Anion Gap 12, BUN 17, Creatinine 1.70 H, Est GFR (MDRD) Af Amer 44 L, Est GFR (MDRD) Non-Af 36 L, BUN/Creatinine Ratio 10.0, Glucose 263 H, Calcium 8.3 L, Troponin I < 0.015 11/07/18 03:20: Lactic Acid 3.7 H 11/07/18 04:05: Urine Color Yellow, Urine Clarity Cloudy, Urine pH 5.0, Ur Specific [place] 1.025, Urine Protein 100 H, Urine Glucose (UA) Normal, Urine Ketones 5 H, Urine Occult Blood Negative, Urine Nitrite Negative, Urine Bilirubin 1 H, Urine Urobilinogen 1 H, Ur Leukocyte Esterase 100 H, Urine RBC 0 SEEN, Urine WBC 0-5 SEEN 11/07/18 07:25: PT 14.0, INR 1.1, APTT 27.1 11/07/18 08:10: Lactic Acid 1.9 Rhythm: EKG: Junctional rhythm with a rate of 55 bpm. Other EKGs demonstrates sinus rhythm with sinus arrhythmia ECHO: Borderline left ventricular systolic function estimated EF of 50% no wall motion abnormalities present. Assessment/Plan 1. Cardiac bradycardia arrhythmias The above is most likely secondary to the combination of medications. Patient is on high dose verapamil as well as metoprolol and with her dehydration has contributed to the hypotension as well as the bradycardia from the negative chronotropic response to these medications. Would recommend discontinuing the above and substituting other antihypertensive medications. I do not see an immediate reason why she is on a beta-taty and a negatively chronotropic calcium channel taty. I would try and discern more from the primary physician's office or notes At this juncture I do not think that the patient would require a permanent pacemaker implantation. Patient was given 0.5 mg of atropine with improvement in response to her heart rate. 2. Hypotension I suspect the above is likely on the basis of dehydration. Patient is on 3 diuretics including Lasix, metolazone, and spironolactone. I do not have any evidence that the patient has a history of heart failure. Her ejection fraction noted to be normal by echocardiogram with only diastolic dysfunction noted. Would recommend discontinuing the diuretics at this time and so she is fully hydrated and creatinine is back to normal 3. Hypertension Her blood pressure at this time appears to be well controlled. When she is adequately hydrated I would recommend that if her blood pressure starts going up we start her on an LEANNE inhibitor or calcium channel taty with neutral negative chronotropic effect. This will be most appropriate for a young person. Thank you for allowing me to participate in the care of your patient. Please don't hesitate to call if any issues arise
[2018-11-07] MEDS: Dicyclomine 10 MG Capsule PO ×2 (16:49→21:26)
--- NOTE | 2018-11-07 16:53 | CON.PCM_ITS ---
Reason for Consult Date of Consultation: 11/07/18 Reason for Consultation: Slow heart rate History of Present Illness: The patient is a 38 year old F with an extensive PMH She was admitted through the ED with a complaint of lightheadedness, weakness and lethargy. Patient states she woke up to go to the bathroom in the early hours of this morning but was unable to get to the bathroom and had to have a bowel movement on herself. She felt very weak to get up and had to call out until his son came to try to help her up. Therefore called the EMS. She says she thinks he passed out and could not really do with the EMS was instructed her to do. She was therefore brought into the ED. She denied any assisted fever or chills, any cough or chest pain but only complained of a sore throat. She denied any palpitations or dizziness and states she had noted that her heart rate was much lower than usual. She denied any abdominal pain and had had only one episode of diarrhea and also vomiting today. Review of systems otherwise negative. On admission the ED, she was found to have blood pressure of 79/59. Her heart rate was also low at about 55 when she came in she was also tachypneic with respiratory rate of 22.. Labs showed creatinine of 1.7 with a baseline being less than 1. Lactic acid was elevated at 3.7 white cell count was 14.2. Initial troponin was negative. Chest x-ray showed no acute cardiopulmonary disease. She was apparently admitted to the intensive care unit with a diagnosis of septic shock. I was called to see her because she was noted to be bradycardic and there was a concern as to whether she would need a permanent pacemaker. Past Medical History Allergies/Adverse Reactions: Allergies nabumetone Allergy (Unknown, Verified 09/01/18 08:37) Unknown hydrocodone bitartrate [From [place]] Allergy (Verified 09/01/18 08:37) Itching Penicillins Allergy (Verified 09/01/18 08:37) Swelling Home Medications: Ambulatory Orders Medication Instructions Recorded Metoprolol(XL)Succ [Toprol Xl 200 mg PO DAILY 02/10/14 (Beta Taty)] Montelukast [Singulair] 10 mg PO QHS 04/21/16 Albuterol Aerosols [Ventolin 2.5 mg INHALATION Q4H PRN PRN 12/03/16 Aerosols] Dicyclomine HCl [Bentyl] 10 mg PO ACHS 12/03/16 Metolazone [Zaroxolyn] 5 mg PO Q7D 12/03/16 furosemide 40 mg tablet 20 mg PO BID tab 09/24/17 gabapentin 100 mg capsule 100 mg PO TID cap 09/24/17 Spironolactone [Aldactone] 25 mg PO BID 11/30/17 Verapamil HCl [Verapamil ER] 240 mg PO BID 11/30/17 potassium chloride ER 20 mEq 10 meq PO BID tab 04/11/18 tablet,extended release(part/cryst) Ascorbic Acid [Vitamin C] 500 mg PO DAILY@0800 11/07/18 Cetirizine HCl [Zyrtec] 10 mg PO DAILY PRN PRN 11/07/18 Cholecalciferol (Vitamin D3) 5,000 unit PO DAILY 11/07/18 [Vitamin D3] Dulaglutide [Trulicity] 1.5 mg SQ QWEEK 11/07/18 Lisinopril 5 mg PO DAILY 11/07/18 Metformin HCl 500 mg PO DAILY 11/07/18 Pantoprazole Sodium [Protonix] 40 mg PO DAILY 11/07/18 Sertraline HCl [Zoloft] 100 mg PO DAILY 11/07/18 Topiramate [Trokendi Xr] 50 mg PO QHS 11/07/18 Past Medical History (Chronic Problems): Chronic Problems (Last Reviewed 09/01/18 @ 09:12 by OSMANY Lux) Paroxysmal supraventricular tachycardia (Chronic) CHF (congestive heart failure) (Chronic) Restrictive airway disease (Chronic) Diaphragmatic hernia congenital (Chronic) Chronic hypoxemic respiratory failure (Chronic) Obstructive sleep apnea (Chronic) Morbid obesity (Chronic) Hypokalemia (Chronic) Asthma (Chronic) HTN (hypertension) (Chronic) Obesity (Chronic) Type 2 diabetes mellitus (Chronic) Surgical History: - - hysterectomy, tubal ligation, cardiac surgery of unclear reason. She mentioned that she has abnormal positioned heart and she went for surgery for it. History of lung surgery and possible chest tubes. 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 Denies: Fever, Night Sweats HEENT: Denies: Vision Change Cardiovascular: Reports: Lightheadedness, Dizziness, Near Syncope. Denies: Chest Discomfort, Shortness of Breath, Orthopnea, PND, Peripheral Edema, Palpitations, Syncope Respiratory: Denies: Cough, Sputum Production, Hemoptysis Gastrointestinal: Denies: Hematemesis, Hematochezia, Melena Genitourinary: Denies: Dysuria, Hematuria Muscoloskeletal: Denies: Myalgias Skin: Denies: Rash Neurological: Reports: Dizziness Psychiatric: Denies: Anxiety Endocrine: Denies: Excessive Sweating Hematologic/ Lymphatic: Denies: Anemia Subjectve: Young lady in no apparent distress Objective: Vital Signs Temp Pulse Resp BP Pulse Ox 99.4 F H 70 29 H 105/83 H 95 11/07/18 16:00 11/07/18 16:15 11/07/18 16:15 11/07/18 16:15 11/07/18 16:15 Oxygen Flow Rate (L/min) 2 Oxygen Delivery Method Nasal Cannula Weight: 269 lb 2.951 oz Body Mass Index (BMI) 40.9 Finger Stick Blood Glucose 111 Intake and Output for Last 24 Hours 11/05/18 11/06/18 11/07/18 23:59 23:59 23:59 Intake Total 305 / 305 Output Total 300 / 300 Balance 5 / 5 General: Awake, Alert, Oriented x 3 HEENT: PERRL, EOMI, Sclera Non Icteric Neck: Supple, Good ROM, No Lymph Node Enlargement Lungs: Clear to auscultation Cardiovascular: Regular Rhythm, Normal S1, Normal S2, No Murmurs, No Rubs, No Gallops Vascular: No Carotid Bruits, Normal Femoral Pulses, Normal Radial Pulses, Normal Dorsalis Pedal Pulse, Normal Posterior Tibial Pulses Abdomen: Bowel Sounds Present, Soft, Non Tender, No HSM, No Organomegaly Extremities: No Cyanosis, No Clubbing, No edema Skin: No Rashes Lymphatic: No Lymph Node Enlargement Neurological: No Focal Motor or Sensory Deficit Psych/Mental Status: Appropriate 11/07/18 03:20: WBC 14.2 H, RBC 5.18, Hgb 13.9, Hct 43.6, MCV 84.2, MCH 26.8 L, MCHC 31.9 L, RDW 13.6, RDW Differential 41.1, Plt Count 303, MPV 10.0, Immature Gran % (Auto) 0.400, Neut % (Auto) 55.7, Lymph % (Auto) 37.1, [place] % (Auto) 5.8, Eos % (Auto) 0.8, Baso % (Auto) 0.2, Absolute Neuts (auto) 7.9 H, Total Counted Not Reportable 11/07/18 03:20: Sodium 137, Potassium 4.3, Chloride 100, Carbon Dioxide 25.0, Anion Gap 12, BUN 17, Creatinine 1.70 H, Est GFR (MDRD) Af Amer 44 L, Est GFR (MDRD) Non-Af 36 L, BUN/Creatinine Ratio 10.0, Glucose 263 H, Calcium 8.3 L, Troponin I < 0.015 11/07/18 03:20: Lactic Acid 3.7 H 11/07/18 04:05: Urine Color Yellow, Urine Clarity Cloudy, Urine pH 5.0, Ur Specific [place] 1.025, Urine Protein 100 H, Urine Glucose (UA) Normal, Urine Ketones 5 H, Urine Occult Blood Negative, Urine Nitrite Negative, Urine Bilirubin 1 H, Urine Urobilinogen 1 H, Ur Leukocyte Esterase 100 H, Urine RBC 0 SEEN, Urine WBC 0-5 SEEN 11/07/18 07:25: PT 14.0, INR 1.1, APTT 27.1 11/07/18 08:10: Lactic Acid 1.9 Rhythm: EKG: Junctional rhythm with a rate of 55 bpm. Other EKGs demonstrates sinus rhythm with sinus arrhythmia ECHO: Borderline left ventricular systolic function estimated EF of 50% no wall motion abnormalities present. Assessment/Plan 1. Cardiac bradycardia arrhythmias * The above is most likely secondary to the combination of medications. Patient is on high dose verapamil as well as metoprolol and with her dehydration has contributed to the hypotension as well as the bradycardia from the negative chronotropic response to these medications. * Would recommend discontinuing the above and substituting other antihypertensive medications. I do not see an immediate reason why she is on a beta-taty and a negatively chronotropic calcium channel taty. I would try and discern more from the primary physician's office or notes * At this juncture I do not think that the patient would require a permanent pacemaker implantation. Patient was given 0.5 mg of atropine with improvement in response to her heart rate. * 2. Hypotension * I suspect the above is likely on the basis of dehydration. Patient is on 3 diuretics including Lasix, metolazone, and spironolactone. I do not have any evidence that the patient has a history of heart failure. * Her ejection fraction noted to be normal by echocardiogram with only diastolic dysfunction noted. * Would recommend discontinuing the diuretics at this time and so she is fully hydrated and creatinine is back to normal * 3. Hypertension * Her blood pressure at this time appears to be well controlled. * When she is adequately hydrated I would recommend that if her blood pressure starts going up we start her on an LEANNE inhibitor or calcium channel taty with neutral negative chronotropic effect. This will be most appropriate for a young person. * * Thank you for allowing me to participate in the care of your patient. Please don't hesitate to call if any issues arise
[2018-11-07 16:56] LABS: Bedside Glucose 182 mg/dL (70-110)
[2018-11-07] MEDS: Budesonide Respules 0.5 MG/2 ML AMPUL.NEB. INHALATION (18:35)
--- NOTE | 2018-11-07 19:28 | PCM.HOSP.N ---
Hospitalist Note Patient was seen and examined briefly in the ICU today, I talked with her concerning her heart disease, she appears to have some cognitive impairment, she talks about having surgery when she was a child on her heart. The only consultation that I was able to review was from Dr. Beasley last year. Patient is currently on dopamine and her heart rate is 72, she came in with a bradycardia and hypotension. Talked briefly with Dr. Brown about her care as well as Dr. Nayak, the etiology of her hypotension is unclear at this time, it is possible the patient has septic shock from an unknown source, patient remains on IV antibiotics now for possible infection. Patient's creatinine was elevated today and she is receiving IV fluids. Patient's echocardiogram today showed an EF of 50%, no valvular heart disease was noted. I have made no changes in the patient's medications today, I have reviewed cardiology's note today and patient will remain on her present medications for now. She currently remains on pressor agents at the moment.
[2018-11-07] MEDS: Montelukast 10 MG Tablet PO (21:26)
[2018-11-07] MEDS: Gabapentin 100 MG Capsule PO (21:26)
[2018-11-07] MEDS: Topiramate 50 MG Tablet PO (21:26)
[2018-11-07 23:51] LABS: Bedside Glucose 124 mg/dL (70-110)
[2018-11-08] VITALS (23 sets, daily range): BP systolic 102–146; BP diastolic 59–77; PULSE 71–109; RESP 14–30; TEMP 36.6–37.3; O2SAT 98–100
[2018-11-08] MEDS: Albuterol 2.5 MG/3 ML VIAL.NEB. INHALATION ×4 (01:30→18:59)
[2018-11-08 05:38] LABS: Absolute Lymphocyte Count 2.37 X10^3/ul (0.83-4.51); Absolute Neutrophil Count 6.2 X10^3/uL (2.0-7.7); Basophil# 0.01 X10^3/uL; Basophil% 0.1 % (0-1); Eosinophil# 0.03 X10^3/uL; Eosinophils% 0.3 % (0-5); Hematocrit 39.8 % (37-47); Hemoglobin 12.8 g/dl (12.0-15.0); Lymphocyte # 2.37 X10^3/ul (4.0); Lymphocyte % 25.2 % (19-41); Mean Corp Hgb Conc 32.2 g/gl (32-36); Mean Corpuscular Hgb 26.9 pg (27.0-32.0); Mean Corpuscular Volume 83.6 fL (81-99); Mean Platelet Vol. 9.5 fl (6.2-12.0); Monocyte# 0.79 X10^3/uL; Monocyte% 8.4 % (0-10); Neutrophil % 65.9 % (47-70); Platelet Count 187 K/mm3 (150-450); RBC Distribution Width CV 13.8 % (11.6-14.6); RBC Distribution Width SD 41.9 fl (35.1-43.9); Red Blood Count 4.76 M/mm3 (4.2-5.4); White Blood Count 9.4 K/mm3 (4.4-11.0)
[2018-11-08 05:40] LABS: POSITIVE COUNT NO; POSITIVE DIFFERENTIAL NO; POSITIVE MORPHOLOGY NO
[2018-11-08] MEDS: Gabapentin 100 MG Capsule PO ×3 (06:09→21:37)
[2018-11-08] MEDS: Acetaminophen 500 MG Tablet PO ×2 (06:09→20:25)
[2018-11-08] MEDS: Heparin Injection (Vial) 5,000 UNIT/ML VIAL 5000 UNIT SC ×3 (06:10→21:38)
[2018-11-08] MEDS: Dicyclomine 10 MG Capsule PO ×4 (06:10→21:37)
[2018-11-08 06:14] LABS: Anion Gap 10 (5-15); BUN 12 mg/dL (7-18); BUN/Creat Ratio 13.3 RATIO (10-20); Calcium,Total 8.6 mg/dL (8.5-10.1); Chloride 106 mmol/L (98-107); EST Glomerular Filtration Rate 75 mL/min (>60); Est Glom Filt Rate - Afr Amer 91 mL/min (>60); Estimated Creatinine Clearance 87.17 ml/min; Glucose 115 mg/dL (74-106); Potassium 3.7 mmol/L (3.5-5.1); Sodium Level 141 mmol/L (136-145)
[2018-11-08] MEDS: Budesonide Respules 0.5 MG/2 ML AMPUL.NEB. INHALATION ×2 (06:51→18:59)
--- NOTE | 2018-11-08 07:04 | PCM.PN.INT ---
Subjective: Patient did well overnight. No acute issues were reported. Patient was off of dopamine yesterday afternoon. Patient was on her baseline nasal cannula oxygen overnight. No bowel movements have been reported. Patient does report a slight headache today, but no focal neurologic deficits are appreciated. Patient was able to tolerate lunch and dinner yesterday, but did have dry heaves yesterday morning. General: Alert, Oriented x3, Cooperative, No apparent distress, - - Morbidly obese. Speaking in full sentences. HEENT: Atraumatic, PERRLA, EOMI, Normocephalic, - - No scleral icterus or injection noted. Oral: Moist Mucosa, No Gingival or Mucosal Lesions/ Ulcerations Neck: Supple, No JVD, No Nodes, Trachea Midline, - - Right IJ TLC clean, dry and intact. Lungs: Clear to auscultation, Normal air movement, No rhonchi, No wheeze, No rales, - - Symmetric expansion. No dullness to percussion. Cardiovascular: Normal S1, Normal S2, No murmurs, Bradycardic, No rub noted, No Gallop Abdomen: Bowel Sounds Present, Soft, Non Tender, Non-Distended, Obese Extremities: No clubbing, No cyanosis, Edema - Trace to 1+ lower extremity Skin: - - No significant change compared to previous Musculoskeletal: No Tenderness to Palpation of Joints or Extremities, No Muscle Wasting Lymphatic: No Cervical, Supraclavicular, or Inguinal Adenopathy Neurological: Cranial nerves II-XII grossly intact, Neuro grossly intact, Motor Exam 5/5 strength throughout Psych/Mental Status: - - Slightly pressured speech, but this is her baseline., Alert and oriented to time, place, person, mood and affect Vital Signs Temp Pulse Resp BP Pulse Ox 36.8 C 76 29 H 116/70 100 11/08/18 06:00 11/08/18 06:52 11/08/18 06:52 11/08/18 06:00 11/08/18 06:52 Oxygen Flow Rate (L/min) 2 Oxygen Delivery Method Nasal Cannula Weight: 121.6 kg Body Mass Index (BMI) 40.9 Finger Stick Blood Glucose 111 Intake and Output for Last 24 Hours 11/06/18 11/07/18 11/08/18 23:59 23:59 23:59 Intake Total 1065 / 1065 120 / 120 Output Total 1050 / 1050 1575 / 1575 Balance -1455 / -1455 Labs (Last 48 Hours) 11/07/18 11/07/18 11/07/18 03:20 03:20 03:20 WBC 14.2 H RBC 5.18 Hgb 13.9 Hct 43.6 MCV 84.2 MCH 26.8 L MCHC 31.9 L RDW 13.6 RDW Differential 41.1 Plt Count 303 MPV 10.0 Immature Gran % (Auto) 0.400 Neut % (Auto) 55.7 Lymph % (Auto) 37.1 [place] % (Auto) 5.8 Eos % (Auto) 0.8 Baso % (Auto) 0.2 Absolute Neuts (auto) 7.9 H Absolute Lymphs (auto) 5.25 H Total Counted Not Reportable PT INR APTT Sodium 137 Potassium 4.3 Chloride 100 Carbon Dioxide 25.0 Anion Gap 12 BUN 17 Creatinine 1.70 H Estim Creat Clear Calc 46.15 Est GFR (MDRD) Af Amer 44 L Est GFR (MDRD) Non-Af 36 L BUN/Creatinine Ratio 10.0 Glucose 263 H Lactic Acid 3.7 H Calcium 8.3 L Troponin I < 0.015 Urine Color Urine Clarity Urine pH Ur Specific [place] Urine Protein Urine Glucose (UA) Urine Ketones Urine Occult Blood Urine Nitrite Urine Bilirubin Urine Urobilinogen Ur Leukocyte Esterase Urine RBC Urine WBC Ur Squamous Epith Cells Urine Bacteria Hyaline Casts Urine Mucus Urine Creatinine Urine Urea Nitrogen POC Glucose 11/07/18 11/07/18 11/07/18 04:05 04:05 04:05 WBC RBC Hgb Hct MCV MCH MCHC RDW RDW Differential Plt Count MPV Immature Gran % (Auto) Neut % (Auto) Lymph % (Auto) [place] % (Auto) Eos % (Auto) Baso % (Auto) Absolute Neuts (auto) Absolute Lymphs (auto) Total Counted PT INR APTT Sodium Potassium Chloride Carbon Dioxide Anion Gap BUN Creatinine Estim Creat Clear Calc Est GFR (MDRD) Af Amer Est GFR (MDRD) Non-Af BUN/Creatinine Ratio Glucose Lactic Acid Calcium Troponin I Urine Color Yellow Urine Clarity Cloudy Urine pH 5.0 Ur Specific [place] 1.025 Urine Protein 100 H Urine Glucose (UA) Normal Urine Ketones 5 H Urine Occult Blood Negative Urine Nitrite Negative Urine Bilirubin 1 H Urine Urobilinogen 1 H Ur Leukocyte Esterase 100 H Urine RBC 0 SEEN Urine WBC 0-5 SEEN Ur Squamous Epith Cells 0-5 SEEN Urine Bacteria RARE Hyaline Casts 0-5 SEEN Urine Mucus 3+ Urine Creatinine 373.00 Urine Urea Nitrogen 717 POC Glucose 11/07/18 11/07/18 11/07/18 07:25 08:10 15:43 WBC RBC Hgb Hct MCV MCH MCHC RDW RDW Differential Plt Count MPV Immature Gran % (Auto) Neut % (Auto) Lymph % (Auto) [place] % (Auto) Eos % (Auto) Baso % (Auto) Absolute Neuts (auto) Absolute Lymphs (auto) Total Counted PT 14.0 INR 1.1 APTT 27.1 Sodium Potassium Chloride Carbon Dioxide Anion Gap BUN Creatinine Estim Creat Clear Calc Est GFR (MDRD) Af Amer Est GFR (MDRD) Non-Af BUN/Creatinine Ratio Glucose Lactic Acid 1.9 Calcium Troponin I Urine Color Urine Clarity Urine pH Ur Specific [place] Urine Protein Urine Glucose (UA) Urine Ketones Urine Occult Blood Urine Nitrite Urine Bilirubin Urine Urobilinogen Ur Leukocyte Esterase Urine RBC Urine WBC Ur Squamous Epith Cells Urine Bacteria Hyaline Casts Urine Mucus Urine Creatinine Urine Urea Nitrogen POC Glucose 117 H 11/07/18 11/07/18 11/08/18 16:46 23:37 05:15 WBC 9.4 RBC 4.76 Hgb 12.8 Hct 39.8 MCV 83.6 MCH 26.9 L MCHC 32.2 RDW 13.8 RDW Differential 41.9 Plt Count 187 MPV 9.5 Immature Gran % (Auto) 0.100 Neut % (Auto) 65.9 Lymph % (Auto) 25.2 [place] % (Auto) 8.4 Eos % (Auto) 0.3 Baso % (Auto) 0.1 Absolute Neuts (auto) 6.2 Absolute Lymphs (auto) 2.37 Total Counted Not Reportable PT INR APTT Sodium Potassium Chloride Carbon Dioxide Anion Gap BUN Creatinine Estim Creat Clear Calc Est GFR (MDRD) Af Amer Est GFR (MDRD) Non-Af BUN/Creatinine Ratio Glucose Lactic Acid Calcium Troponin I Urine Color Urine Clarity Urine pH Ur Specific [place] Urine Protein Urine Glucose (UA) Urine Ketones Urine Occult Blood Urine Nitrite Urine Bilirubin Urine Urobilinogen Ur Leukocyte Esterase Urine RBC Urine WBC Ur Squamous Epith Cells Urine Bacteria Hyaline Casts Urine Mucus Urine Creatinine Urine Urea Nitrogen POC Glucose 182 H 124 H 11/08/18 05:15 WBC RBC Hgb Hct MCV MCH MCHC RDW RDW Differential Plt Count MPV Immature Gran % (Auto) Neut % (Auto) Lymph % (Auto) [place] % (Auto) Eos % (Auto) Baso % (Auto) Absolute Neuts (auto) Absolute Lymphs (auto) Total Counted PT INR APTT Sodium 141 Potassium 3.7 Chloride 106 Carbon Dioxide 25.0 Anion Gap 10 BUN 12 Creatinine 0.90 Estim Creat Clear Calc 87.17 Est GFR (MDRD) Af Amer 91 Est GFR (MDRD) Non-Af 75 BUN/Creatinine Ratio 13.3 Glucose 115 H Lactic Acid Calcium 8.6 Troponin I Urine Color Urine Clarity Urine pH Ur Specific [place] Urine Protein Urine Glucose (UA) Urine Ketones Urine Occult Blood Urine Nitrite Urine Bilirubin Urine Urobilinogen Ur Leukocyte Esterase Urine RBC Urine WBC Ur Squamous Epith Cells Urine Bacteria Hyaline Casts Urine Mucus Urine Creatinine Urine Urea Nitrogen POC Glucose Clinical Impression(s) from Imaging Studies Chest X-Ray 11/07/18 10:51 IMPRESSION: No acute pulmonary process Right-sided central venous catheter tip in the distal SVC Electronically Signed: Scott Gambino MD at 11:46 EST , Service support , Medical Necessity - Tobacco Use Smoking Status: Never smoker Tobacco Use: Non-smoker Assessment/Plan RECOMMENDATIONS: 1. Defer to cardiology on reinitiation of rate control 2. Increase activity as tolerated 3. Discontinue isolation for C. difficile testing 4. Likely discontinue antibiotics once culture negative at 48 hours 5. Okay to leave the intensive care unit from my perspective IMPRESSIONS: 1. Hypotension Likely secondary to junctional rhythm with cardiogenic shock. This was likely medication related. Patient's heart rate is much improved at this time. Would defer to cardiology for reinitiation of medical therapy. Patient is on diuretic therapy at baseline secondary to diastolic congestive heart failure. Saturations have been doing well at this time. Hemodynamically stable overnight. Likely okay to leave the intensive care unit from my perspective. 2. Acute kidney injury RESOLVED > Likely secondary to #1. Patient baseline creatinine appears to be less than 1. Current creatinine is 0.9. Patient did receive significant fluid boluses yesterday, but is oxygenating well at this time. No indication for renal replacement therapy at this time 3. Chronic diastolic congestive heart failure/chronic A. fib/junctional rhythm Patient with a previous echocardiogram completed in 2016 showing an EF of 65%. Cardiology is following. Patient's ejection fraction was slightly depressed at 50% in the setting of dopamine therapy. Defer to cardiology on reinitiation of medications. Patient may require evaluation for coronary artery disease. Valves were not very well visualized secondary to body habitus. 4. Diabetes mellitus Patient does not appear to be well controlled at this time. Defer to hospitalist on whether her hemoglobin A1c will be ordered. Patient will be placed on a diabetic diet with Accu-Cheks and sliding scale insulin. 5. 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 Patient is on substitution therapy for home inhalers. Do not believe patient is not in acute exacerbation, but will need to be followed closely as saturations may drop precipitously if patient develops congestive heart failure. 6. Morbid obesity/RICH/history of diaphragmatic hernia/hypertension/poor historian Complicates care, management, recovery and prognosis. Baseline antihypertensive medications have been held given hypotension. This will likely be reinitiated in a stepwise fashion. Code Visit Inpatient E&M: 63527 [facility] Hosp L3
[2018-11-08 07:07] LABS: Bedside Glucose 127 mg/dL (70-110)
--- NOTE | 2018-11-08 07:42 | PN.CARD_ITS ---
Subjectve: Patient seen and evaluated. Appears to be doing well. Objective: Vital Signs Temp Pulse Resp BP Pulse Ox 98.2 F 81 30 H 128/72 H 99 11/08/18 07:00 11/08/18 07:16 11/08/18 07:00 11/08/18 07:00 11/08/18 07:00 Oxygen Flow Rate (L/min) 2 Oxygen Delivery Method Nasal Cannula Weight: 268 lb 1.314 oz Body Mass Index (BMI) 40.9 Finger Stick Blood Glucose 111 Intake and Output for Last 24 Hours 11/06/18 11/07/18 11/08/18 23:59 23:59 23:59 Intake Total 1065 / 1065 120 / 120 Output Total 1050 / 1050 1575 / 1575 Balance -1455 / -1455 General: Awake, Alert, Oriented x 3 HEENT: PERRL, EOMI, Sclera Non Icteric Neck: Supple, Good ROM, No Lymph Node Enlargement Lungs: Clear to auscultation Cardiovascular: Regular Rhythm, Normal S1, Normal S2, No Murmurs, No Rubs, No Gallops Vascular: No Carotid Bruits, Normal Femoral Pulses, Normal Radial Pulses, Normal Dorsalis Pedal Pulse, Normal Posterior Tibial Pulses Abdomen: Bowel Sounds Present, Soft, Non Tender, No HSM, No Organomegaly Extremities: No Cyanosis, No Clubbing, No edema Musculoskeletal: No Erythema Skin: No Rashes Lymphatic: No Lymph Node Enlargement Neurological: No Focal Motor or Sensory Deficit Psych/Mental Status: Appropriate 11/07/18 07:25: PT 14.0, INR 1.1, APTT 27.1 11/07/18 08:10: Lactic Acid 1.9 11/08/18 05:15: WBC 9.4, RBC 4.76, Hgb 12.8, Hct 39.8, MCV 83.6, MCH 26.9 L, MCHC 32.2, RDW 13.8, RDW Differential 41.9, Plt Count 187, MPV 9.5, Immature Gran % (Auto) 0.100, Neut % (Auto) 65.9, Lymph % (Auto) 25.2, [place] % (Auto) 8.4, Eos % (Auto) 0.3, Baso % (Auto) 0.1, Absolute Neuts (auto) 6.2, Total Counted Not Reportable 11/08/18 05:15: Sodium 141, Potassium 3.7, Chloride 106, Carbon Dioxide 25.0, Anion Gap 10, BUN 12, Creatinine 0.90, Est GFR (MDRD) Af Amer 91, Est GFR (MDRD) Non-Af 75, BUN/Creatinine Ratio 13.3, Glucose 115 H, Calcium 8.6 Rhythm: EKG: ECHO: Stress Test: Cardiac Cath: PCI: CT Surgery: Holter monitor: EPS: PPM: CXR: Chest CT Scan: Medical Necessity - Tobacco Use Smoking Status: Never smoker Tobacco Use: Non-smoker Assessment/Plan 1. Cardiac bradycardia arrhythmias * The above is most likely secondary to the combination of medications. Patient is on high dose verapamil as well as metoprolol and with her dehydration has contributed to the hypotension as well as the bradycardia from the negative chronotropic response to these medications. * Would recommend discontinuing the above and substituting other antihypertensive medications. I do not see an immediate reason why she is on a beta-taty and a negatively chronotropic calcium channel taty. * 2. Hypotension * I suspect the above is likely on the basis of dehydration. Patient is on 3 diuretics including Lasix, metolazone, and spironolactone. I do not have any evidence that the patient has a history of heart failure. * Her ejection fraction noted to be normal by echocardiogram with only diastolic dysfunction noted. * Would recommend discontinuing the diuretics at this time and so she is fully hydrated and creatinine is back to normal * 3. Hypertension * Her blood pressure at this time appears to be well controlled. * When she is adequately hydrated I would recommend that if her blood pressure starts going up we start her on an LEANNE inhibitor or calcium channel taty with neutral negative chronotropic effect. This will be most appropriate for a young person. * * Thank you for allowing me to participate in the care of your patient. Please don't hesitate to call if any issues arise
--- NOTE | 2018-11-08 10:05 | PCM.PROGNOTE ---
Subjective: Chief complaint: Follow-up after admission for hypotension attributed to probable cardiogenic shock and also found to have acute kidney injury. Patient seen and examined. No acute events overnight. She complained of weakness as well as back pain. She complains of mild headache. Denies chest pain or shortness of breath. Her vital signs are stable. - Physical Exam General: Alert, Oriented x3, Cooperative, No apparent distress HEENT: Atraumatic, PERRLA, EOMI, Normocephalic Oral: Moist Mucosa, No Gingival or Mucosal Lesions/ Ulcerations Neck: Supple, No JVD, Negative Carotid Bruits, Trachea Midline, Thyroid Normal Size and Texture Lungs: Clear to auscultation, No rhonchi, No wheeze, No rales, Diminished Cardiovascular: Regular rate, Regular Rhythm, Normal S1, Normal S2, PMI Normal Abdomen: Bowel Sounds Present, Soft, Non Tender, Non-Distended, No Hepato-splenomegaly, Obese Extremities: No clubbing, No cyanosis, No edema Skin: No rashes, No breakdown Lymphatic: No Cervical, Supraclavicular, or Inguinal Adenopathy Neurological: Cranial nerves II-XII grossly intact, Motor Exam 5/5 strength throughout Psych/Mental Status: Normal Affect, Appropriate, Alert and oriented to time, place, person, mood and affect Vital Signs Temp Pulse Resp BP Pulse Ox 98.9 F 85 18 127/68 H 100 11/08/18 09:00 11/08/18 09:00 11/08/18 09:00 11/08/18 09:00 11/08/18 09:00 Oxygen Flow Rate (L/min) 2 Oxygen Delivery Method Nasal Cannula Weight: 268 lb 1.314 oz Body Mass Index (BMI) 40.9 Finger Stick Blood Glucose 111 Intake and Output for Last 24 Hours 11/06/18 11/07/18 11/08/18 23:59 23:59 23:59 Intake Total 1065 / 1065 120 / 120 Output Total 1050 / 1050 1575 / 1575 Balance -1455 / -1455 Laboratory Tests Past 24 Hrs 11/08/18 11/08/18 05:15 05:15 WBC 9.4 RBC 4.76 Hgb 12.8 Hct 39.8 MCV 83.6 MCH 26.9 L MCHC 32.2 RDW 13.8 RDW Differential 41.9 Plt Count 187 MPV 9.5 Immature Gran % (Auto) 0.100 Neut % (Auto) 65.9 Lymph % (Auto) 25.2 [place] % (Auto) 8.4 Eos % (Auto) 0.3 Baso % (Auto) 0.1 Absolute Neuts (auto) 6.2 Absolute Lymphs (auto) 2.37 Total Counted Not Reportable Sodium 141 Potassium 3.7 Chloride 106 Carbon Dioxide 25.0 Anion Gap 10 BUN 12 Creatinine 0.90 Estim Creat Clear Calc 87.17 Est GFR (MDRD) Af Amer 91 Est GFR (MDRD) Non-Af 75 BUN/Creatinine Ratio 13.3 Glucose 115 H Calcium 8.6 POC Glucose 11/08/18 11/07/18 11/07/18 06:58 23:37 16:46 POC Glucose 127 H 124 H 182 H 11/07/18 15:43 POC Glucose 117 H Clinical Impression(s) from Imaging Studies Chest X-Ray 11/07/18 03:30 IMPRESSION: No acute cardiopulmonary disease. No significant interval change. Electronically Signed: Cyndi Escalante MD at 3:48 EST , Service support , Chest X-Ray 11/07/18 10:51 IMPRESSION: No acute pulmonary process Right-sided central venous catheter tip in the distal SVC Electronically Signed: Scott Gambino MD at 11:46 EST , Service support , Medical Necessity - Tobacco Use Smoking Status: Never smoker Tobacco Use: Non-smoker Assessment/Plan This is a 38 years old female patient presented to the ED because of dizziness, lightheadedness, found to have hypotension which is attributed to probable cardiogenic shock and also found to have acute kidney injury. #1 hypotension: Attributed to probable cardiogenic shock secondary to junctional rhythm. Today, his blood pressure stable, she is not on any vasopressors. EKG reviewed. Patient was on metoprolol and verapamil. In blood work was unremarkable. 2D echocardiogram revealed normal LV size, ejection fraction was 50%. Cardiology on the case. Plan: Transfer to PCU. #2 acute kidney injury: Attributed to above, tissue hypoperfusion. IV fluids continued. Admission creatinine was 1.7, came down to 0.90 today, improved. #3 chronic diastolic CHF: Clinically stable, compensated. At this time, is not on any medication. He was on beta-blockers and lisinopril which was discontinued because of acute kidney injury and hypotension. #4 chronic atrial fibrillation: Rate has been controlled, blood pressure stabilized. At this time, she is not on any medication for rate control and she is not on anticoagulation. #5 type 2 diabetes mellitus: Blood sugar has been stable, continue sliding scale. Metformin held. #6 chronic respiratory failure: On home oxygen at 3 L. At this time, pulse ox is 100% on 2 L. Stable. #7 hypertension: Blood pressure improved, will resume lisinopril and Lasix. Keep holding metoprolol and verapamil. #8 DVT prophylaxis: Subcu heparin. This note was generated with [employer] dictation software. It may contain incorrect words, spelling, and punctuation that were not noted in checking the note before signing. Code Visit Inpatient E&M: 37213 [facility] Hosp L2
[2018-11-08] MEDS: Pantoprazole Sodium 20 MG Tablet PO (10:07)
[2018-11-08] MEDS: Ondansetron ODT 4 MG Tablet PO (10:53)
[2018-11-08] MEDS: 0.9% NaCl Peripheral Flush Adult/Peds IV ×2 (12:34→20:26)
[2018-11-08 17:06] LABS: Bedside Glucose 134 mg/dL (70-110)
[2018-11-08] MEDS: Furosemide 20 MG Tablet PO (18:13)
[2018-11-08] MEDS: Ondansetron 4 MG/2 ML Vial IV (20:26)
[2018-11-08] MEDS: Topiramate 50 MG Tablet PO (21:37)
[2018-11-08] MEDS: Montelukast 10 MG Tablet PO (21:37)
[2018-11-08 21:51] LABS: Bedside Glucose 145 mg/dL (70-110)
[2018-11-09] VITALS (14 sets, daily range): BP systolic 117–163; BP diastolic 59–77; PULSE 68–97; RESP 16–24; TEMP 36.2–36.8; O2SAT 95–100
[2018-11-09] MEDS: Albuterol 2.5 MG/3 ML VIAL.NEB. INHALATION ×4 (01:05→18:11)
[2018-11-09] MEDS: Gabapentin 100 MG Capsule PO ×3 (05:14→21:44)
[2018-11-09] MEDS: Heparin Injection (Vial) 5,000 UNIT/ML VIAL 5000 UNIT SC ×3 (05:14→21:44)
[2018-11-09] MEDS: Dicyclomine 10 MG Capsule PO ×4 (06:23→21:44)
[2018-11-09] MEDS: Budesonide Respules 0.5 MG/2 ML AMPUL.NEB. INHALATION ×2 (07:00→18:11)
[2018-11-09 07:02] LABS: Bedside Glucose 101 mg/dL (70-110)
--- NOTE | 2018-11-09 07:39 | PCM.PN.CARD ---
Subjectve: Patient seen and evaluated. Has multiple complaints which are unrelated to cardiac events. Including headache and dizziness and nausea Objective: Vital Signs Temp Pulse Resp BP Pulse Ox 97.7 F L 68 18 117/59 L 97 11/09/18 03:49 11/09/18 03:49 11/09/18 03:49 11/09/18 03:49 11/09/18 03:49 Oxygen Flow Rate (L/min) 2 Oxygen Delivery Method Nasal Cannula Weight: 267 lb 13.786 oz Body Mass Index (BMI) 40.9 Finger Stick Blood Glucose 111 Intake and Output for Last 24 Hours 11/07/18 11/08/18 11/09/18 23:59 23:59 23:59 Intake Total 1065 / 1065 580 / 580 360 / 360 Output Total 1050 / 1050 2100 / 2100 700 / 700 Balance 15 / 15 -1520 / -1520 -340 / -340 General: Awake, Alert, Oriented x 3 HEENT: PERRL, EOMI, Sclera Non Icteric Neck: Supple, Good ROM, No Lymph Node Enlargement Lungs: Clear to auscultation Cardiovascular: Regular Rhythm, Normal S1, Normal S2, No Murmurs, No Rubs, No Gallops Vascular: No Carotid Bruits, Normal Femoral Pulses, Normal Radial Pulses, Normal Dorsalis Pedal Pulse, Normal Posterior Tibial Pulses Abdomen: Bowel Sounds Present, Soft, Non Tender, No HSM, No Organomegaly Extremities: No Cyanosis, No Clubbing, No edema Musculoskeletal: No Erythema Skin: No Rashes Lymphatic: No Lymph Node Enlargement Neurological: No Focal Motor or Sensory Deficit Psych/Mental Status: Appropriate Rhythm: EKG: ECHO: Stress Test: Cardiac Cath: PCI: CT Surgery: Holter monitor: EPS: PPM: CXR: Chest CT Scan: Medical Necessity - Tobacco Use Smoking Status: Never smoker Tobacco Use: Non-smoker Assessment/Plan 1. Cardiac bradycardia arrhythmias The above is most likely secondary to the combination of medications. Patient is on high dose verapamil as well as metoprolol and with her dehydration has contributed to the hypotension as well as the bradycardia from the negative chronotropic response to these medications. Would recommend discontinuing the above and substituting other antihypertensive medications. I do not see an immediate reason why she is on a beta-taty and a negatively chronotropic calcium channel taty. 2. Hypotension I suspect the above is likely on the basis of dehydration. Patient is on 3 diuretics including Lasix, metolazone, and spironolactone. I do not have any evidence that the patient has a history of heart failure. Her ejection fraction noted to be normal by echocardiogram with only diastolic dysfunction noted. Would recommend reducing lasix to 20 mg day 3. Hypertension Her blood pressure at this time appears to be well controlled. When she is adequately hydrated I would recommend that if her blood pressure starts going up we start her on an LEANNE inhibitor or calcium channel taty with neutral negative chronotropic effect. This will be most appropriate for a young person. Thank you for allowing me to participate in the care of your patient. Please don't hesitate to call if any issues arise
--- NOTE | 2018-11-09 07:51 | CT_ITS ---
STUDY: CT BRAIN WITHOUT CONTRAST REASON FOR EXAM: Female, 38 years old. Headaches following a fall. RADIATION DOSAGE (If Supplied By Facility): CTDIvol = ( 44.99 ) mGy, DLP = ( 745.49 ) mGycm TECHNIQUE: Transaxial CT imaging of the brain was performed without administration of intravenous contrast material. Individualized dose optimization techniques were used for this CT. COMPARISON: None. FINDINGS: Normal soft tissue structures. There is hyperostosis frontalis internus. Normal size ventricles and extra-axial spaces for the patient's age. Normal white matter tracts of the cerebral hemispheres. Cavum septum pellucidum. Normal basal ganglia and thalami. Normal brainstem. Normal cerebellum. There is no intracranial hemorrhage. There are no findings of an acute ischemic infarction. Normal visualized paranasal sinuses. CT/Brain/Head without Contrast IMPRESSION: Normal unenhanced CT scan of the brain. Electronically Signed: Mil Spain MD at 12:47 EST , Service support ,
--- NOTE | 2018-11-09 07:52 | PN.CARD_ITS ---
Subjectve: Patient seen and evaluated. Has multiple complaints which are unrelated to cardiac events. Including headache and dizziness and nausea Objective: Vital Signs Temp Pulse Resp BP Pulse Ox 97.7 F L 68 18 117/59 L 97 11/09/18 03:49 11/09/18 03:49 11/09/18 03:49 11/09/18 03:49 11/09/18 03:49 Oxygen Flow Rate (L/min) 2 Oxygen Delivery Method Nasal Cannula Weight: 267 lb 13.786 oz Body Mass Index (BMI) 40.9 Finger Stick Blood Glucose 111 Intake and Output for Last 24 Hours 11/07/18 11/08/18 11/09/18 23:59 23:59 23:59 Intake Total 1065 / 1065 580 / 580 360 / 360 Output Total 1050 / 1050 2100 / 2100 700 / 700 Balance 15 / 15 -1520 / -1520 -340 / -340 General: Awake, Alert, Oriented x 3 HEENT: PERRL, EOMI, Sclera Non Icteric Neck: Supple, Good ROM, No Lymph Node Enlargement Lungs: Clear to auscultation Cardiovascular: Regular Rhythm, Normal S1, Normal S2, No Murmurs, No Rubs, No Gallops Vascular: No Carotid Bruits, Normal Femoral Pulses, Normal Radial Pulses, Normal Dorsalis Pedal Pulse, Normal Posterior Tibial Pulses Abdomen: Bowel Sounds Present, Soft, Non Tender, No HSM, No Organomegaly Extremities: No Cyanosis, No Clubbing, No edema Musculoskeletal: No Erythema Skin: No Rashes Lymphatic: No Lymph Node Enlargement Neurological: No Focal Motor or Sensory Deficit Psych/Mental Status: Appropriate Rhythm: EKG: ECHO: Stress Test: Cardiac Cath: PCI: CT Surgery: Holter monitor: EPS: PPM: CXR: Chest CT Scan: Medical Necessity - Tobacco Use Smoking Status: Never smoker Tobacco Use: Non-smoker Assessment/Plan 1. Cardiac bradycardia arrhythmias * The above is most likely secondary to the combination of medications. Patient is on high dose verapamil as well as metoprolol and with her dehydration has contributed to the hypotension as well as the bradycardia from the negative chronotropic response to these medications. * Would recommend discontinuing the above and substituting other antihypertensive medications. I do not see an immediate reason why she is on a beta-taty and a negatively chronotropic calcium channel taty. * 2. Hypotension * I suspect the above is likely on the basis of dehydration. Patient is on 3 diuretics including Lasix, metolazone, and spironolactone. I do not have any evidence that the patient has a history of heart failure. * Her ejection fraction noted to be normal by echocardiogram with only diastolic dysfunction noted. * Would recommend reducing lasix to 20 mg day * 3. Hypertension * Her blood pressure at this time appears to be well controlled. * When she is adequately hydrated I would recommend that if her blood pressure starts going up we start her on an LEANNE inhibitor or calcium channel taty with neutral negative chronotropic effect. This will be most appropriate for a young person. * * Thank you for allowing me to participate in the care of your patient. Please don't hesitate to call if any issues arise
--- NOTE | 2018-11-09 07:55 | PCM.PROGNOTE ---
Subjective: Chief complaint: Follow-up after admission for hypotension attributed to probable cardiogenic shock and also found to have acute kidney injury. Patient seen and examined. No acute events overnight with this morning, she complained of headache. Yesterday, she said that she does not think that she hit her head when she fell at home but today, she said she may. Her sister yesterday mentioned that she is concerned about hitting her head. Vital signs are stable. - Physical Exam General: Alert, Oriented x3, Cooperative, No apparent distress HEENT: Atraumatic, PERRLA, EOMI, Normocephalic Oral: Moist Mucosa, No Gingival or Mucosal Lesions/ Ulcerations Neck: Supple, No JVD, Negative Carotid Bruits, Trachea Midline, Thyroid Normal Size and Texture Lungs: Clear to auscultation, No rhonchi, No wheeze, No rales, Diminished Cardiovascular: Regular rate, Regular Rhythm, Normal S1, Normal S2, PMI Normal Abdomen: Bowel Sounds Present, Soft, Non Tender, Non-Distended, No Hepato-splenomegaly, Obese Extremities: No clubbing, No cyanosis, No edema Skin: No rashes, No breakdown Lymphatic: No Cervical, Supraclavicular, or Inguinal Adenopathy Neurological: Cranial nerves II-XII grossly intact, Neuro grossly intact Psych/Mental Status: Normal Affect, Appropriate Vital Signs Temp Pulse Resp BP Pulse Ox 97.7 F L 68 18 117/59 L 97 11/09/18 03:49 11/09/18 03:49 11/09/18 03:49 11/09/18 03:49 11/09/18 03:49 Oxygen Flow Rate (L/min) 2 Oxygen Delivery Method Nasal Cannula Weight: 267 lb 13.786 oz Body Mass Index (BMI) 40.9 Finger Stick Blood Glucose 111 Intake and Output for Last 24 Hours 11/07/18 11/08/18 11/09/18 23:59 23:59 23:59 Intake Total 1065 / 1065 580 / 580 360 / 360 Output Total 1050 / 1050 2100 / 2100 700 / 700 Balance -1520 / -1520 -340 / -340 POC Glucose 11/09/18 11/08/18 11/08/18 06:53 21:35 16:19 POC Glucose 101 145 H 134 H Medical Necessity - Tobacco Use Smoking Status: Never smoker Tobacco Use: Non-smoker Assessment/Plan This is a 38 years old female patient presented to the ED because of dizziness, lightheadedness, found to have hypotension which is attributed to probable cardiogenic shock and also found to have acute kidney injury. #1 hypotension: Attributed to probable cardiogenic shock secondary to junctional rhythm. Her vital signs are stable, blood pressure under control. She is back on Lasix and small dose of lisinopril. Metoprolol and verapamil are still on hold. 2D echocardiogram revealed normal LV size, ejection fraction was 50%. Cardiology on the case. Plan to continue same treatment, PT OT evaluation and treatment, patient may need placement to correction facility. Because of headache and questionable head trauma, will do CT scan brain. #2 acute kidney injury: Attributed to above, tissue hypoperfusion. IV fluids continued. Serum creatinine is back to normal, resolved. #3 chronic diastolic CHF: Clinically stable, compensated. Started back on small dose of Lasix and lisinopril. Metoprolol and verapamil are still on hold. Will discuss with cardiology about starting back her metoprolol and verapamil probably at smaller doses. #4 chronic atrial fibrillation: Rate has been controlled, blood pressure stabilized. At this time, she is not on any medication for rate control and she is not on anticoagulation. #5 type 2 diabetes mellitus: Blood sugar has been stable, continue sliding scale. Metformin held. #6 chronic respiratory failure: On home oxygen at 3 L. At this time, pulse ox is 100% on 2 L. Stable. #7 hypertension: Blood pressure stable, continue lisinopril and Lasix, keep holding metoprolol and verapamil. #8 DVT prophylaxis: Subcu heparin. This note was generated with [employer] dictation software. It may contain incorrect words, spelling, and punctuation that were not noted in checking the note before signing. Code Visit Inpatient E&M: 58393 Subs Hosp L2
--- NOTE | 2018-11-09 08:00 | PN_ITS ---
Subjective: Chief complaint: Follow-up after admission for hypotension attributed to probable cardiogenic shock and also found to have acute kidney injury. Patient seen and examined. No acute events overnight with this morning, she complained of headache. Yesterday, she said that she does not think that she hit her head when she fell at home but today, she said she may. Her sister yesterday mentioned that she is concerned about hitting her head. Vital signs are stable. - Physical Exam General: Alert, Oriented x3, Cooperative, No apparent distress HEENT: Atraumatic, PERRLA, EOMI, Normocephalic Oral: Moist Mucosa, No Gingival or Mucosal Lesions/ Ulcerations Neck: Supple, No JVD, Negative Carotid Bruits, Trachea Midline, Thyroid Normal Size and Texture Lungs: Clear to auscultation, No rhonchi, No wheeze, No rales, Diminished Cardiovascular: Regular rate, Regular Rhythm, Normal S1, Normal S2, PMI Normal Abdomen: Bowel Sounds Present, Soft, Non Tender, Non-Distended, No Hepato- splenomegaly, Obese Extremities: No clubbing, No cyanosis, No edema Skin: No rashes, No breakdown Lymphatic: No Cervical, Supraclavicular, or Inguinal Adenopathy Neurological: Cranial nerves II-XII grossly intact, Neuro grossly intact Psych/Mental Status: Normal Affect, Appropriate Vital Signs Temp Pulse Resp BP Pulse Ox 97.7 F L 68 18 117/59 L 97 11/09/18 03:49 11/09/18 03:49 11/09/18 03:49 11/09/18 03:49 11/09/18 03:49 Oxygen Flow Rate (L/min) 2 Oxygen Delivery Method Nasal Cannula Weight: 267 lb 13.786 oz Body Mass Index (BMI) 40.9 Finger Stick Blood Glucose 111 Intake and Output for Last 24 Hours 11/07/18 11/08/18 11/09/18 23:59 23:59 23:59 Intake Total 1065 / 1065 580 / 580 360 / 360 Output Total 1050 / 1050 2100 / 2100 700 / 700 Balance -1520 / -1520 -340 / -340 POC Glucose 11/09/18 11/08/18 11/08/18 06:53 21:35 16:19 POC Glucose 101 145 H 134 H Medical Necessity - Tobacco Use Smoking Status: Never smoker Tobacco Use: Non-smoker Assessment/Plan This is a 38 years old female patient presented to the ED because of dizziness, lightheadedness, found to have hypotension which is attributed to probable cardiogenic shock and also found to have acute kidney injury. #1 hypotension: Attributed to probable cardiogenic shock secondary to junctional rhythm. Her vital signs are stable, blood pressure under control. She is back on Lasix and small dose of lisinopril. Metoprolol and verapamil are still on hold. 2D echocardiogram revealed normal LV size, ejection fraction was 50%. Cardiology on the case. Plan to continue same treatment, PT OT evaluation and treatment, patient may need placement to snf facility. Because of headache and questionable head trauma, will do CT scan brain. #2 acute kidney injury: Attributed to above, tissue hypoperfusion. IV fluids continued. Serum creatinine is back to normal, resolved. #3 chronic diastolic CHF: Clinically stable, compensated. Started back on small dose of Lasix and lisinopril. Metoprolol and verapamil are still on hold. Will discuss with cardiology about starting back her metoprolol and verapamil probably at smaller doses. #4 chronic atrial fibrillation: Rate has been controlled, blood pressure stabilized. At this time, she is not on any medication for rate control and she is not on anticoagulation. #5 type 2 diabetes mellitus: Blood sugar has been stable, continue sliding scale. Metformin held. #6 chronic respiratory failure: On home oxygen at 3 L. At this time, pulse ox is 100% on 2 L. Stable. #7 hypertension: Blood pressure stable, continue lisinopril and Lasix, keep holding metoprolol and verapamil. #8 DVT prophylaxis: Subcu heparin. This note was generated with [employer] dictation software. It may contain incorrect words, spelling, and punctuation that were not noted in checking the note before signing. Code Visit Inpatient E&M: 00010 Subs Hosp L2
--- NOTE | 2018-11-09 08:00 | PCM.PROGNOTE ---
Subjective: Patient transferred out of the intensive care unit overnight. Patient did have nausea and vomiting after arrival to the PCU. Patient has remained hemodynamically stable. Patient continues to report a headache that she localizes to the temples and radiates to the occiput. This is not associated with neurologic deficits. Patient states she feels unsteady on my feet. Patient does report she has not had a bowel movement since admission. - Physical Exam General: Alert, Oriented x3, Cooperative, No apparent distress, - - Morbidly obese. Slightly pressured speech, but appears at baseline. HEENT: Atraumatic, PERRLA, EOMI, Normocephalic, - - Nasal cannula oxygen in place. Oral: Moist Mucosa, No Gingival or Mucosal Lesions/ Ulcerations Neck: Supple, No JVD, No Nodes, Trachea Midline Lungs: No rhonchi, No wheeze, No rales, Diminished Cardiovascular: Regular rate, Regular Rhythm, Normal S1, Normal S2, No murmurs, No rub noted, No Gallop, - - Telemetry shows normal sinus rhythm overnight. Some motion artifact, but no junctional rhythm appreciated. Abdomen: Bowel Sounds Present, Soft, Non Tender, Non-Distended, Obese Extremities: No clubbing, No cyanosis, Edema Skin: No rashes, No breakdown Musculoskeletal: No Tenderness to Palpation of Joints or Extremities Lymphatic: No Cervical, Supraclavicular, or Inguinal Adenopathy Neurological: Cranial nerves II-XII grossly intact, Neuro grossly intact, Motor Exam 5/5 strength throughout Psych/Mental Status: Anxious Vital Signs Temp Pulse Resp BP Pulse Ox 36.5 C L 68 18 117/59 L 97 11/09/18 03:49 11/09/18 03:49 11/09/18 03:49 11/09/18 03:49 11/09/18 03:49 Oxygen Flow Rate (L/min) 2 Oxygen Delivery Method Nasal Cannula Weight: 121.5 kg Body Mass Index (BMI) 40.9 Finger Stick Blood Glucose 111 Intake and Output for Last 24 Hours 11/07/18 11/08/18 11/09/18 23:59 23:59 23:59 Intake Total 1065 / 1065 580 / 580 360 / 360 Output Total 1050 / 1050 2100 / 2100 700 / 700 Balance -1520 / -1520 -340 / -340 POC Glucose 02/03/2211/08/18 11/08/18 06:53 21:35 16:19 POC Glucose 101 145 H 134 H Medical Necessity - Tobacco Use Smoking Status: Never smoker Tobacco Use: Non-smoker Assessment/Plan RECOMMENDATIONS: 1. Defer to cardiology on reinitiation of hypertension medications 2. Increase activity as tolerated 3. Initiate bowel regimen 4. Aggressive PT OT IMPRESSIONS: 1. Hypotension Likely secondary to junctional rhythm with cardiogenic shock. This was likely medication related. Patient's heart rate is much improved at this time. Would defer to cardiology for reinitiation of medical therapy. Patient is on diuretic therapy at baseline secondary to diastolic congestive heart failure. Saturations have been doing well at this time. Hemodynamically stable overnight. Likely okay to leave the intensive care unit from my perspective. 2. Acute kidney injury RESOLVED > Likely secondary to #1. Patient baseline creatinine appears to be less than 1. Current creatinine is 0.9. Patient did receive significant fluid boluses yesterday, but is oxygenating well at this time. No indication for renal replacement therapy at this time 3. Chronic diastolic congestive heart failure/chronic A. fib/junctional rhythm Patient with a previous echocardiogram completed in 2016 showing an EF of 65%. Cardiology is following. Patient's ejection fraction was slightly depressed at 50% in the setting of dopamine therapy. Defer to cardiology on reinitiation of medications. Patient may require evaluation for coronary artery disease. Valves were not very well visualized secondary to body habitus. Patient's weight has remained stable despite lack of diuretic therapy. 4. Diabetes mellitus Patient does not appear to be well controlled at this time. Defer to hospitalist on whether her hemoglobin A1c will be ordered. Patient will be placed on a diabetic diet with Accu-Cheks and sliding scale insulin. 5. 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 Patient is on substitution therapy for home inhalers. Do not believe patient is not in acute exacerbation, but will need to be followed closely as saturations may drop precipitously if patient develops congestive heart failure. 6. Morbid obesity/RICH/history of diaphragmatic hernia/hypertension/poor historian Complicates care, management, recovery and prognosis. Baseline antihypertensive medications have been held given hypotension. This will likely be reinitiated in a stepwise fashion. Code Visit Inpatient E&M: 34728 Subs Hosp L2
[2018-11-09] MEDS: Pantoprazole Sodium 20 MG Tablet PO (09:19)
[2018-11-09] MEDS: Escitalopram Oxalate 10 MG Tablet 5 MG PO (09:19)
[2018-11-09] MEDS: Acetaminophen 500 MG Tablet PO (09:22)
[2018-11-09] MEDS: Ondansetron 4 MG/2 ML Vial IV (09:23)
[2018-11-09] MEDS: Polyethylene Glycol 3350 17 GM PACKET PO (09:33)
[2018-11-09] MEDS: Lisinopril 5 MG Tablet PO (10:24)
[2018-11-09] MEDS: Furosemide 20 MG Tablet PO (10:24)
[2018-11-09 11:41] LABS: Bedside Glucose 121 mg/dL (70-110)
--- NOTE | 2018-11-09 12:54 | CASEMGMT ---
RN said patient wants to make sure someone is working on getting her a new medical alert button because she lost hers. SW called patient's waiver director of casework, Darby Rhoades and left her a voice mail letting her know this information. Anitra HUNT MSW
[2018-11-09] MEDS: Ondansetron ODT 4 MG Tablet PO (15:01)
[2018-11-09 17:01] LABS: Bedside Glucose 103 mg/dL (70-110)
[2018-11-09] MEDS: Montelukast 10 MG Tablet PO (21:44)
[2018-11-09] MEDS: Topiramate 50 MG Tablet PO (21:44)
[2018-11-09 23:01] LABS: Bedside Glucose 129 mg/dL (70-110)
[2018-11-10 02:19] VITALS: BP 125/78; PULSE 77; RESP 18; TEMP 36.7; O2SAT 97
[2018-11-10] MEDS: Acetaminophen 500 MG Tablet PO ×2 (02:31→08:48)
[2018-11-10 03:06] VITALS: PULSE 62
[2018-11-10] MEDS: Dicyclomine 10 MG Capsule PO ×2 (05:49→11:09)
[2018-11-10] MEDS: Gabapentin 100 MG Capsule PO (05:49)
[2018-11-10] MEDS: Heparin Injection (Vial) 5,000 UNIT/ML VIAL 5000 UNIT SC (05:50)
--- NOTE | 2018-11-10 06:50 | PN.CARD_ITS ---
Subjectve: Patient seen and evaluated. Appears to be stable. Objective: Vital Signs Temp Pulse Resp BP Pulse Ox 98.1 F 62 18 125/78 H 97 11/10/18 02:19 11/10/18 03:06 11/10/18 02:19 11/10/18 02:19 11/10/18 02:19 Oxygen Flow Rate (L/min) 2 Oxygen Delivery Method Nasal Cannula Weight: 264 lb 5.348 oz Body Mass Index (BMI) 40.9 Finger Stick Blood Glucose 111 Intake and Output for Last 24 Hours 11/08/18 11/09/18 11/10/18 23:59 23:59 23:59 Intake Total 580 / 580 1360 / 1360 120 / 120 Output Total 2100 / 2100 2250 / 2250 200 / 200 Balance -1520 / -1520 -890 / -890 -80 / -80 General: Awake, Alert, Oriented x 3 HEENT: PERRL, EOMI, Sclera Non Icteric Neck: Supple, Good ROM, No Lymph Node Enlargement Lungs: Clear to auscultation Cardiovascular: Regular Rhythm, Normal S1, Normal S2, No Murmurs, No Rubs, No Gallops Vascular: No Carotid Bruits, Normal Femoral Pulses, Normal Radial Pulses, Normal Dorsalis Pedal Pulse, Normal Posterior Tibial Pulses Abdomen: Bowel Sounds Present, Soft, Non Tender, No HSM, No Organomegaly Extremities: No Cyanosis, No Clubbing, No edema Neurological: No Focal Motor or Sensory Deficit Psych/Mental Status: Appropriate Rhythm: EKG: ECHO: Stress Test: Cardiac Cath: PCI: CT Surgery: Holter monitor: EPS: PPM: CXR: Chest CT Scan: Medical Necessity - Tobacco Use Smoking Status: Never smoker Tobacco Use: Non-smoker Assessment/Plan 1. Cardiac bradycardia arrhythmias * The above is most likely secondary to the combination of medications. Patient is on high dose verapamil as well as metoprolol and with her dehydration has contributed to the hypotension as well as the bradycardia from the negative chronotropic response to these medications. * Would recommend discontinuing the above and substituting other antihypertensive medications. I do not see an immediate reason why she is on a beta-taty and a negatively chronotropic calcium channel taty. * 2. Hypotension * I suspect the above is likely on the basis of dehydration. Patient is on 3 diuretics including Lasix, metolazone, and spironolactone. I do not have any evidence that the patient has a history of heart failure. * Her ejection fraction noted to be normal by echocardiogram with only diastolic dysfunction noted. * Would recommend continuing Lasix 20 mg day * 3. Hypertension * Her blood pressure at this time appears to be well controlled. * When she is adequately hydrated I would recommend that if her blood pressure starts going up we start her on an LEANNE inhibitor or calcium channel taty with neutral negative chronotropic effect. This will be most appropriate for a young person. * From the cardiac standpoint the patient appears to be stable on these medications for outpatient follow-up. * Thank you for allowing me to participate in the care of your patient. Please don't hesitate to call if any issues arise
[2018-11-10 07:01] LABS: Absolute Neutrophil Count 4.6 X10^3/uL (2.0-7.7); Basophil# 0.03 X10^3/uL; Basophil% 0.4 % (0-1); Eosinophil# 0.15 X10^3/uL; Hematocrit 44.4 % (37-47); Hemoglobin 14.2 g/dl (12.0-15.0); Lymphocyte % 28.7 % (19-41); Mean Corpuscular Hgb 26.6 pg (27.0-32.0); Mean Corpuscular Volume 83.1 fL (81-99); Mean Platelet Vol. 9.7 fl (6.2-12.0); Monocyte# 0.71 X10^3/uL; Monocyte% 9.3 % (0-10); Neutrophil # 4.56 X10^3/uL (2.7-7.7); Neutrophil % 59.3 % (47-70); Platelet Count 240 K/mm3 (150-450); RBC Distribution Width CV 13.8 % (11.6-14.6); RBC Distribution Width SD 41.9 fl (35.1-43.9); Red Blood Count 5.34 M/mm3 (4.2-5.4); White Blood Count 7.7 K/mm3 (4.4-11.0)
[2018-11-10 07:04] LABS: POSITIVE COUNT NO; POSITIVE DIFFERENTIAL NO; POSITIVE MORPHOLOGY NO
[2018-11-10 07:07] LABS: Bedside Glucose 116 mg/dL (70-110)
[2018-11-10 07:19] LABS: Anion Gap 5 (5-15); BUN 12 mg/dL (7-18); BUN/Creat Ratio 13.6 RATIO (10-20); Calcium,Total 8.9 mg/dL (8.5-10.1); Chloride 103 mmol/L (98-107); Creatinine, Serum 0.88 mg/dL (0.55-1.02); EST Glomerular Filtration Rate 77 mL/min (>60); Est Glom Filt Rate - Afr Amer 93 mL/min (>60); Estimated Creatinine Clearance 89.15 ml/min; Glucose 110 mg/dL (74-106); Magnesium 2.1 mg/dL (1.6-2.6); Phosphorus 3.5 mg/dL (2.5-4.9); Potassium 4.2 mmol/L (3.5-5.1); Sodium Level 136 mmol/L (136-145)
[2018-11-10 07:25] VITALS: PULSE 77; RESP 18; O2SAT 98
[2018-11-10] MEDS: Albuterol 2.5 MG/3 ML VIAL.NEB. INHALATION (07:26)
[2018-11-10] MEDS: Budesonide Respules 0.5 MG/2 ML AMPUL.NEB. INHALATION (07:27)
[2018-11-10 07:37] VITALS: PULSE 74
[2018-11-10 08:30] VITALS: BP 156/85; PULSE 75; RESP 18; TEMP 36.6; O2SAT 96
[2018-11-10] MEDS: Polyethylene Glycol 3350 17 GM PACKET PO (08:46)
[2018-11-10] MEDS: Escitalopram Oxalate 10 MG Tablet 5 MG PO (08:48)
[2018-11-10] MEDS: Furosemide 20 MG Tablet PO (08:49)
[2018-11-10] MEDS: Lisinopril 5 MG Tablet PO (08:50)
--- NOTE | 2018-11-10 08:54 | PCM.PROGNOTE ---
Subjective: Patient has been hemodynamically stable over the last 24 hours. However, patient is still requiring pain medication secondary to headache and is reporting significant shortness of breath with ambulation to the bathroom. Patient is very concerned because she is not had a bowel movement since admission. - Physical Exam General: Alert, Oriented x3, Cooperative, - - Anxious. Morbidly obese. No conversational dyspnea appreciated. HEENT: Atraumatic, PERRLA, EOMI, Normocephalic, - - No scleral icterus or injection noted. Oral: Moist Mucosa, No Gingival or Mucosal Lesions/ Ulcerations Neck: Supple, No JVD, No Nodes, Trachea Midline Lungs: No rhonchi, No wheeze, No rales, Diminished Cardiovascular: Regular rate, Regular Rhythm, Normal S1, Normal S2, No murmurs, No rub noted, No Gallop Abdomen: Bowel Sounds Present, Soft, Non Tender, Non-Distended Extremities: No clubbing, No cyanosis, Edema Skin: No rashes, No breakdown Musculoskeletal: No Tenderness to Palpation of Joints or Extremities Lymphatic: No Cervical, Supraclavicular, or Inguinal Adenopathy Neurological: Cranial nerves II-XII grossly intact, Neuro grossly intact, Motor Exam 5/5 strength throughout Psych/Mental Status: Anxious Vital Signs Temp Pulse Resp BP Pulse Ox 36.6 C 75 18 156/85 H 96 11/10/18 08:30 11/10/18 08:30 11/10/18 08:30 11/10/18 08:30 11/10/18 08:30 Oxygen Flow Rate (L/min) 2 Oxygen Delivery Method Nasal Cannula Weight: 119.9 kg Body Mass Index (BMI) 40.9 Finger Stick Blood Glucose 111 Intake and Output for Last 24 Hours 11/08/18 11/09/18 11/10/18 23:59 23:59 23:59 Intake Total 580 / 580 1360 / 1360 120 / 120 Output Total 2100 / 2100 2250 / 2250 200 / 200 Balance -1520 / -1520 -890 / -890 -80 / -80 Laboratory Tests Past 24 Hrs 11/10/18 11/10/18 06:50 06:50 WBC 7.7 RBC 5.34 Hgb 14.2 Hct 44.4 MCV 83.1 MCH 26.6 L MCHC 32.0 RDW 13.8 RDW Differential 41.9 Plt Count 240 MPV 9.7 Immature Gran % (Auto) 0.300 Neut % (Auto) 59.3 Lymph % (Auto) 28.7 [place] % (Auto) 9.3 Eos % (Auto) 2.0 Baso % (Auto) 0.4 Absolute Neuts (auto) 4.6 Absolute Lymphs (auto) 2.20 Total Counted Not Reportable Sodium 136 Potassium 4.2 Chloride 103 Carbon Dioxide 28.0 Anion Gap 5 BUN 12 Creatinine 0.88 Estim Creat Clear Calc 89.15 Est GFR (MDRD) Af Amer 93 Est GFR (MDRD) Non-Af 77 BUN/Creatinine Ratio 13.6 Glucose 110 H Calcium 8.9 Phosphorus 3.5 Magnesium 2.1 POC Glucose 11/10/18 11/09/18 11/09/18 07:00 22:54 16:51 POC Glucose 116 H 129 H 103 11/09/18 11:36 POC Glucose 121 H Clinical Impression(s) from Imaging Studies Brain CT 11/09/18 07:51 IMPRESSION: Normal unenhanced CT scan of the brain. Electronically Signed: Mil Spain MD at 12:47 EST , Service support , Medical Necessity - Tobacco Use Smoking Status: Never smoker Tobacco Use: Non-smoker Assessment/Plan RECOMMENDATIONS: 1. Defer to cardiology on reinitiation of hypertension medications 2. Increase activity as tolerated 3. Medications to help with bowel movement 4. Aggressive PT OT 5. Obtain PA and lateral chest x-ray IMPRESSIONS: 1. Hypotension Likely secondary to junctional rhythm with cardiogenic shock. This was likely medication related. Patient's heart rate is much improved at this time. Would defer to cardiology for reinitiation of medical therapy. Patient is on diuretic therapy at baseline secondary to diastolic congestive heart failure. Saturations have been doing well at this time. Hemodynamically stable overnight. 2. Acute kidney injury RESOLVED > Likely secondary to #1. Patient baseline creatinine appears to be less than 1. Current creatinine is 0.9. Patient did receive significant fluid boluses yesterday, but is oxygenating well at this time. No indication for renal replacement therapy at this time 3. Chronic diastolic congestive heart failure/chronic A. fib/junctional rhythm Patient with a previous echocardiogram completed in 2016 showing an EF of 65%. Cardiology is following. Patient's ejection fraction was slightly depressed at 50% in the setting of dopamine therapy. Defer to cardiology on reinitiation of medications. Patient may require evaluation for coronary artery disease. Patient is reporting significant dyspnea on exertion. Diuretic regimen has been significantly reduced from baseline. Will obtain a chest x-ray for evaluation of pleural effusion. 4. Diabetes mellitus Patient does not appear to be well controlled at this time. Defer to hospitalist on whether her hemoglobin A1c will be ordered. Patient will be placed on a diabetic diet with Accu-Cheks and sliding scale insulin. 5. 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 Patient is on substitution therapy for home inhalers. Do not believe patient is not in acute exacerbation, but will need to be followed closely as saturations may drop precipitously if patient develops congestive heart failure. 6. Morbid obesity/RICH/history of diaphragmatic hernia/hypertension/poor historian Complicates care, management, recovery and prognosis. Baseline antihypertensive medications have been held given hypotension. This will likely be reinitiated in a stepwise fashion. Code Visit Inpatient E&M: 23731 Subs Hosp L2
[2018-11-10] MEDS: Pantoprazole Sodium 20 MG Tablet PO (08:56)
--- NOTE | 2018-11-10 08:58 | PN_ITS ---
Subjective: Patient has been hemodynamically stable over the last 24 hours. However, patient is still requiring pain medication secondary to headache and is re porting significant shortness of breath with ambulation to the bathroom. Patient is very concerned because she is not had a bowel movement since admission. - Physical Exam General: Alert, Oriented x3, Cooperative, - - Anxious. Morbidly obese. No conversational dyspnea appreciated. HEENT: Atraumatic, PERRLA, EOMI, Normocephalic, - - No scleral icterus or injection noted. Oral: Moist Mucosa, No Gingival or Mucosal Lesions/ Ulcerations Neck: Supple, No JVD, No Nodes, Trachea Midline Lungs: No rhonchi, No wheeze, No rales, Diminished Cardiovascular: Regular rate, Regular Rhythm, Normal S1, Normal S2, No murmurs, No rub noted, No Gallop Abdomen: Bowel Sounds Present, Soft, Non Tender, Non-Distended Extremities: No clubbing, No cyanosis, Edema Skin: No rashes, No breakdown Musculoskeletal: No Tenderness to Palpation of Joints or Extremities Lymphatic: No Cervical, Supraclavicular, or Inguinal Adenopathy Neurological: Cranial nerves II-XII grossly intact, Neuro grossly intact, Motor Exam 5/5 strength throughout Psych/Mental Status: Anxious Vital Signs Temp Pulse Resp BP Pulse Ox 36.6 C 75 18 156/85 H 96 11/10/18 08:30 11/10/18 08:30 11/10/18 08:30 11/10/18 08:30 11/10/18 08:30 Oxygen Flow Rate (L/min) 2 Oxygen Delivery Method Nasal Cannula Weight: 119.9 kg Body Mass Index (BMI) 40.9 Finger Stick Blood Glucose 111 Intake and Output for Last 24 Hours 11/08/18 11/09/18 11/10/18 23:59 23:59 23:59 Intake Total 580 / 580 1360 / 1360 120 / 120 Output Total 2100 / 2100 2250 / 2250 200 / 200 Balance -1520 / -1520 -890 / -890 -80 / -80 Laboratory Tests Past 24 Hrs 11/10/18 11/10/18 06:50 06:50 WBC 7.7 RBC 5.34 Hgb 14.2 Hct 44.4 MCV 83.1 MCH 26.6 L MCHC 32.0 RDW 13.8 RDW Differential 41.9 Plt Count 240 MPV 9.7 Immature Gran % (Auto) 0.300 Neut % (Auto) 59.3 Lymph % (Auto) 28.7 [place] % (Auto) 9.3 Eos % (Auto) 2.0 Baso % (Auto) 0.4 Absolute Neuts (auto) 4.6 Absolute Lymphs (auto) 2.20 Total Counted Not Reportable Sodium 136 Potassium 4.2 Chloride 103 Carbon Dioxide 28.0 Anion Gap 5 BUN 12 Creatinine 0.88 Estim Creat Clear Calc 89.15 Est GFR (MDRD) Af Amer 93 Est GFR (MDRD) Non-Af 77 BUN/Creatinine Ratio 13.6 Glucose 110 H Calcium 8.9 Phosphorus 3.5 Magnesium 2.1 POC Glucose 11/10/18 11/09/18 11/09/18 07:00 22:54 16:51 POC Glucose 116 H 129 H 103 11/09/18 11:36 POC Glucose 121 H Clinical Impression(s) from Imaging Studies Brain CT 11/09/18 07:51 IMPRESSION: Normal unenhanced CT scan of the brain. Electronically Signed: Mil Spain MD at 12:47 EST , Service support , Medical Necessity - Tobacco Use Smoking Status: Never smoker Tobacco Use: Non-smoker Assessment/Plan RECOMMENDATIONS: 1. Defer to cardiology on reinitiation of hypertension medications 2. Increase activity as tolerated 3. Medications to help with bowel movement 4. Aggressive PT OT 5. Obtain PA and lateral chest x-ray IMPRESSIONS: 1. Hypotension Likely secondary to junctional rhythm with cardiogenic shock. This was likely medication related. Patient's heart rate is much improved at this time. Would defer to cardiology for reinitiation of medical therapy. Patient is on diuretic therapy at baseline secondary to diastolic congestive heart failure. Saturations have been doing well at this time. Hemodynamically stable overnight. 2. Acute kidney injury RESOLVED > Likely secondary to #1. Patient baseline creatinine appears to be less than 1. Current creatinine is 0.9. Patient did receive significant fluid boluses yesterday, but is oxygenating well at this time. No indication for renal replacement therapy at this time 3. Chronic diastolic congestive heart failure/chronic A. fib/junctional rhythm Patient with a previous echocardiogram completed in 2016 showing an EF of 65%. Cardiology is following. Patient's ejection fraction was slightly depressed at 50% in the setting of dopamine therapy. Defer to cardiology on reinitiation of medications. Patient may require evaluation for coronary artery disease. Patient is reporting significant dyspnea on exertion. Diuretic regimen has been significantly reduced from baseline. Will obtain a chest x-ray for evaluation of pleural effusion. 4. Diabetes mellitus Patient does not appear to be well controlled at this time. Defer to hospitalist on whether her hemoglobin A1c will be ordered. Patient will be placed on a diabetic diet with Accu-Cheks and sliding scale insulin. 5. 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 Patient is on substitution therapy for home inhalers. Do not believe patient is not in acute exacerbation, but will need to be followed clos jeff as saturations may drop precipitously if patient develops congestive heart failure. 6. Morbid obesity/RICH/history of diaphragmatic hernia/hypertension/poor historian Complicates care, management, recovery and prognosis. Baseline antihypertensive medications have been held given hypotension. This will likely be reinitiated in a stepwise fashion. Code Visit Inpatient E&M: 81879 Subs Hosp L2
--- NOTE | 2018-11-10 09:30 | RAD_ITS ---
STUDY: X-RAY CHEST REASON FOR EXAM: Female, 38 years old. Shortness of breath/dyspnea. TECHNIQUE: PA and lateral views of the chest. COMPARISON: Comparison is made with prior study dated November 07, 2018. FINDINGS: A right-sided internal jugular venous catheter is seen. The tip is at the junction of the superior vena cava and right atrium. EKG electrodes are seen. There is blunting of left costophrenic angle. Mild increased markings are seen at the left lung base suggestive of left basilar atelectasis. Pectus excavatum deformity Normal size heart. Normal mediastinum and cherelle. Normal visualized pulmonary arteries. Normal visualized aortic arch and descending thoracic aorta. Normal visualized thoracic spine. Normal visualized ribs, clavicles, and shoulders. There is no demonstrated abnormality of the visualized soft tissue structures of the upper abdomen. RAD/Chest PA and Lateral IMPRESSION: Findings suggestive of small left pleural effusion with underlying left basilar atelectasis. Electronically Signed: Mil Spain MD at 13:07 EST , Service support ,
--- NOTE | 2018-11-10 10:11 | PCM.DC ---
You will use the following diet at home:: Calorie/Carbohydrate Controlled (specify 1200, 1400, etc) - 1800 pollo. Your food should be the consistency of: Regular Discharge Activity: Return to Normal Activity Weight Bearing Status: Weight bearing as tolerated Call your doctor if you observe: Fever of 101 or Higher, Shortness of breath, Dizziness, Fainting spells, Chest pain, Increased palpitations (irregular heartbeat), Uncontrolled pain Additional Instructions: Please keep close monitoring of your blood pressure, check it at least twice a day, write down the readings and see your family doctor in a week. We stopped different blood pressure medicines for you because when you came in, your blood pressure was very low. Allergies/Adverse Reactions: Allergies nabumetone Allergy (Unknown, Verified 09/01/18 08:37) Unknown hydrocodone bitartrate [From [place]] Allergy (Verified 09/01/18 08:37) Itching Penicillins Allergy (Verified 09/01/18 08:37) Swelling Medications to take at Discharge Montelukast [Singulair] 10 mg PO QHS 04/21/16 Albuterol Aerosols [Ventolin Aerosols] 2.5 mg INHALATION Q4H PRN PRN 12/03/16 Dicyclomine HCl [Bentyl] 10 mg PO ACHS 12/03/16 gabapentin 100 mg capsule 100 mg PO TID cap 09/24/17 potassium chloride ER 20 mEq tablet,extended release(part/cryst) 10 meq PO BID tab 04/11/18 Ascorbic Acid [Vitamin C] 500 mg PO DAILY@0800 11/07/18 Cetirizine HCl [Zyrtec] 10 mg PO DAILY PRN PRN 11/07/18 Cholecalciferol (Vitamin D3) [Vitamin D3] 5,000 unit PO DAILY 11/07/18 Dulaglutide [Trulicity] 1.5 mg SQ QWEEK 11/07/18 Lisinopril 5 mg PO DAILY 11/07/18 Metformin HCl 500 mg PO DAILY 11/07/18 Pantoprazole Sodium [Protonix] 40 mg PO DAILY 11/07/18 Sertraline HCl [Zoloft] 100 mg PO DAILY 11/07/18 Topiramate [Trokendi Xr] 50 mg PO QHS 11/07/18 Furosemide [Lasix] 20 mg PO DAILY #0 tab 11/10/18 Primary Care Physician: Asim Cohn DO [Primary Care Provider] - Please follow up with your Primary Care Physician in: 1 week. Test Results: Test results from this visit will be discussed in further detail at your follow-up appointment, if applicable. Please Follow Up With: Ketan Nayak MD When: 2-4 weeks. Please Follow Up With: Lorenzo Brown MD When: 2-4 weeks.
--- NOTE | 2018-11-10 10:14 | DCINST_ITS ---
You will use the following diet at home:: Calorie/Carbohydrate Controlled (specify 1200, 1400, etc) - 1800 pollo. Your food should be the consistency of: Regular Discharge Activity: Return to Normal Activity Weight Bearing Status: Weight bearing as tolerated Call your doctor if you observe: Fever of 101 or Higher, Shortness of breath, Dizziness, Fainting spells, Chest pain, Increased palpitations (irregular heartbeat), Uncontrolled pain Additional Instructions: Please keep close monitoring of your blood pressure, check it at least twice a day, write down the readings and see your family doctor in a week. We stopped different blood pressure medicines for you because when you came in, your blood pressure was very low. Allergies/Adverse Reactions: Allergies nabumetone Allergy (Unknown, Verified 09/01/18 08:37) Unknown hydrocodone bitartrate [From [place]] Allergy (Verified 09/01/18 08:37) Itching Penicillins Allergy (Verified 09/01/18 08:37) Swelling Medications to take at Discharge Montelukast [Singulair] 10 mg PO QHS 04/21/16 Albuterol Aerosols [Ventolin Aerosols] 2.5 mg INHALATION Q4H PRN PRN 12/03/16 Dicyclomine HCl [Bentyl] 10 mg PO ACHS 12/03/16 gabapentin 100 mg capsule 100 mg PO TID cap 09/24/17 potassium chloride ER 20 mEq tablet,extended release(part/cryst) 10 meq PO BID tab 04/11/18 Ascorbic Acid [Vitamin C] 500 mg PO DAILY@0800 11/07/18 Cetirizine HCl [Zyrtec] 10 mg PO DAILY PRN PRN 11/07/18 Cholecalciferol (Vitamin D3) [Vitamin D3] 5,000 unit PO DAILY 11/07/18 Dulaglutide [Trulicity] 1.5 mg SQ QWEEK 11/07/18 Lisinopril 5 mg PO DAILY 11/07/18 Metformin HCl 500 mg PO DAILY 11/07/18 Pantoprazole Sodium [Protonix] 40 mg PO DAILY 11/07/18 Sertraline HCl [Zoloft] 100 mg PO DAILY 11/07/18 Topiramate [Trokendi Xr] 50 mg PO QHS 11/07/18 Furosemide [Lasix] 20 mg PO DAILY #0 tab 11/10/18 Primary Care Physician: Asim Cohn DO [Primary Care Provider] - Please follow up with your Primary Care Physician in: 1 week. Test Results: Test results from this visit will be discussed in further detail at your follow- up appointment, if applicable. Please Follow Up With: Ketan Nayak MD When: 2-4 weeks. Please Follow Up With: Lorenzo Brown MD When: 2-4 weeks.
--- NOTE | 2018-11-10 10:20 | NURSING ---
Central Line Dc'd per order, tip intact. 2 sutures removed, pressure applied for 5 minutes. Area cleansed with betadine, vaseline guaze applied with 2x2 over top and secured with tegaderm. Instructed to lie flat for 30 minutes. Verbalizes understanding.
--- NOTE | 2018-11-10 10:30 | CASEMGMT ---
This RN CM to room to discuss discharge plan with pt. Pt is lying flat on bed s/p central line removal. Pt states concerns about getting new life alert and this RN CM advised pt that message was left with Darby Rhoades, her waiver CM, yesterday, pt voices understanding. Pt also requests to have an aide set up thru [facility] for at home and at [place]. Referral to [facility]GD[facility] at this time, voices understanding. Pt states concerns about [facility] knowing what meds to place in her packets and request that this RN CM notify them. Call to [facility] and updated medlist faxed to them at this time. Pt voices no further questions/concerns/needs at this time. S[place]en PATRICK WINKLER
[2018-11-10] MEDS: Ondansetron 4 MG/2 ML Vial IV (10:32)
[2018-11-10] MEDS: 0.9% NaCl Peripheral Flush Adult/Peds IV (10:33)
[2018-11-10] MEDS: Senna/Docusate Sodium 1 Tablet 2 TABLET PO (11:09)
--- NOTE | 2018-11-10 11:23 | CASEMGMT ---
ALIN called Darby Rhoades at [facility] and left her a voice mail letting her know patient would like aide services and she needs a new medical alert button. ALIN let patient know this information. Anitra HUNT MSW
[2018-11-10 11:56] LABS: Bedside Glucose 182 mg/dL (70-110)
--- NOTE | 2018-11-10 12:36 | PCM.DC.SUM ---
Discharge Date and Diagnosis Date of Admission: 11/07/18 Date of Discharge: 11/10/18 - Primary Discharge Diagnosis #1 hypertension/probable cardiogenic shock. #2 acute kidney injury. 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 No significant interval change. Electronically Signed: Cyndi Escalante MD at 3:48 EST , Service support , Chest X-Ray 11/07/18 10:51 IMPRESSION: No acute pulmonary process Right-sided central venous catheter tip in the distal SVC Electronically Signed: Scott Gambino MD at 11:46 EST , Service support , Brain CT 11/09/18 07:51 IMPRESSION: Normal unenhanced CT scan of the brain. Electronically Signed: Mil Spain MD at 12:47 EST , Service support , Dr. Brown, critical care. Dr. Nayak, cardiology. Operations: None Procedures: 2-D Echocardiogram, EKG Summary of Care Provided: Patient seen and examined on the day of discharge and appeared to be stable to be discharged home. She complained of mild headache. Her vital signs are stable. This is a 38 years old female patient presented to the ED because of dizziness, lightheadedness, found to have hypotension which is attributed to probable cardiogenic shock and also found to have acute kidney injury. #1 hypotension: Attributed to probable cardiogenic shock secondary to junctional rhythm. Patient was on high doses of extended release metoprolol, high-dose of albumin as well as 3 different diuretics. She was admitted to the intensive care unit, treated with IV fluids and IV dopamine drip to maintain blood pressure. With IV fluid and IV vasopressors therapy and discontinuation of her antihypertensives and diuretics, her blood pressure improved. She was started back on small dose of Lasix and remained on lisinopril. Metoprolol and verapamil as well as Aldactone and metolazone discontinued. 2D echocardiogram revealed normal LV size and function, ejection fraction 50%. Her EKG revealed no acute ischemic changes. Troponin was negative. Patient was transferred to the floor PCU and her blood pressure remained stable. She complained of headache and in context of fall, CT scan brain done and showed no acute findings. Patient discharged home in a stable medical condition, discharged on Lasix 20 mg p.o. daily and lisinopril 5 mg p.o. daily, highly recommended to keep close monitoring of her blood pressure, check her blood pressure at least twice daily and follow-up with PCP in 1 week. #2 acute kidney injury: Attributed to above, tissue hypoperfusion. Treated with IV fluids and vasopressors. Serum creatinine is back to normal, resolved. #3 chronic diastolic CHF: Clinically stable, compensated. After treating her hypotension, she was started back on small dose of Lasix and lisinopril and she did well. Verapamil and metoprolol discontinued. 2D echocardiogram reviewed as above. #4 chronic atrial fibrillation: Rate has been controlled, blood pressure stabilized. She was discharged without rate control medicine and without anticoagulation. #5 type 2 diabetes mellitus: Continued on metformin upon discharge.. #6 hypertension: Blood pressure stable, discharged on lisinopril and Lasix. Metoprolol and verapamil discontinued. Patient discharged home in a stable medical condition, discharged on Lasix and lisinopril, highly recommended to monitor his blood pressure very closely, check blood pressure at least twice daily at home, recommended follow-up with PCP in 1 week, follow-up with cardiology in 2-4 weeks and with pulmonology in 2-4 weeks as well. This note was generated with [employer] dictation software. It may contain incorrect words, spelling, and punctuation that were not noted in checking the note before signing. - Physical Exam General: Alert, Oriented x3, Cooperative, No apparent distress HEENT: Atraumatic, PERRLA, EOMI, Normocephalic Oral: Moist Mucosa, No Gingival or Mucosal Lesions/ Ulcerations Neck: Supple, No JVD, Negative Carotid Bruits, Trachea Midline, Thyroid Normal Size and Texture Lungs: Clear to auscultation, No rhonchi, No wheeze, No rales, Diminished Cardiovascular: Regular rate, Regular Rhythm, Normal S1, Normal S2, PMI Normal Abdomen: Bowel Sounds Present, Soft, Non Tender, Non-Distended, No Hepato-splenomegaly, Obese Extremities: No clubbing, No cyanosis, No edema Skin: No rashes, No breakdown Lymphatic: No Cervical, Supraclavicular, or Inguinal Adenopathy Neurological: Cranial nerves II-XII grossly intact, Neuro grossly intact Psych/Mental Status: Normal Affect, Appropriate Vital Signs Temp Pulse Resp BP Pulse Ox 97.8 F 75 18 156/85 H 96 11/10/18 08:30 11/10/18 08:30 11/10/18 08:30 11/10/18 08:30 11/10/18 08:30 Oxygen Flow Rate (L/min) 2 Oxygen Delivery Method Nasal Cannula Weight: 264 lb 5.348 oz Body Mass Index (BMI) 40.9 Finger Stick Blood Glucose 111 Intake and Output for Last 24 Hours 11/08/18 11/09/18 11/10/18 23:59 23:59 23:59 Intake Total 580 / 580 1360 / 1360 970 / 970 Output Total 2100 / 2100 2250 / 2250 200 / 200 Balance -1520 / -1520 -890 / -890 770 / 770 Laboratory Tests Past 24 Hrs 11/10/18 11/10/18 06:50 06:50 WBC 7.7 RBC 5.34 Hgb 14.2 Hct 44.4 MCV 83.1 MCH 26.6 L MCHC 32.0 RDW 13.8 RDW Differential 41.9 Plt Count 240 MPV 9.7 Immature Gran % (Auto) 0.300 Neut % (Auto) 59.3 Lymph % (Auto) 28.7 [place] % (Auto) 9.3 Eos % (Auto) 2.0 Baso % (Auto) 0.4 Absolute Neuts (auto) 4.6 Absolute Lymphs (auto) 2.20 Total Counted Not Reportable Sodium 136 Potassium 4.2 Chloride 103 Carbon Dioxide 28.0 Anion Gap 5 BUN 12 Creatinine 0.88 Estim Creat Clear Calc 89.15 Est GFR (MDRD) Af Amer 93 Est GFR (MDRD) Non-Af 77 BUN/Creatinine Ratio 13.6 Glucose 110 H Calcium 8.9 Phosphorus 3.5 Magnesium 2.1 POC Glucose 11/10/18 11/10/18 11/09/18 11:24 07:00 22:54 POC Glucose 182 H 116 H 129 H 11/09/18 16:51 POC Glucose 103 Discharge Activity: Return to Normal Activity Weight Bearing Status: Weight bearing as tolerated Call your doctor if you observe: Fever of 101 or Higher, Shortness of breath, Dizziness, Fainting spells, Chest pain, Increased palpitations (irregular heartbeat), Uncontrolled pain Home Medications: Medications to take at Discharge Montelukast [Singulair] 10 mg PO QHS 04/21/16 Albuterol Aerosols [Ventolin Aerosols] 2.5 mg INHALATION Q4H PRN PRN 12/03/16 Dicyclomine HCl [Bentyl] 10 mg PO ACHS 12/03/16 gabapentin 100 mg capsule 100 mg PO TID cap 09/24/17 potassium chloride ER 20 mEq tablet,extended release(part/cryst) 10 meq PO BID tab 04/11/18 Ascorbic Acid [Vitamin C] 500 mg PO DAILY@0800 11/07/18 Cetirizine HCl [Zyrtec] 10 mg PO DAILY PRN PRN 11/07/18 Cholecalciferol (Vitamin D3) [Vitamin D3] 5,000 unit PO DAILY 11/07/18 Dulaglutide [Trulicity] 1.5 mg SQ QWEEK 11/07/18 Lisinopril 5 mg PO DAILY 11/07/18 Metformin HCl 500 mg PO DAILY 11/07/18 Pantoprazole Sodium [Protonix] 40 mg PO DAILY 11/07/18 Sertraline HCl [Zoloft] 100 mg PO DAILY 11/07/18 Topiramate [Trokendi Xr] 50 mg PO QHS 11/07/18 Furosemide [Lasix] 20 mg PO DAILY #0 tab 11/10/18 Primary Care Physician: Asim Cohn DO [Primary Care Provider] - Please follow up with your Primary Care Physician in: 1 week. Please Follow Up With: Ketan Nayak MD When: 2-4 weeks. Please Follow Up With: Lorenzo Brown MD When: 2-4 weeks. Please Follow Up With: Asim Cohn DO Disposition: Home Minutes spent on discharge:: 32 Patient Condition:: Stable Medical Necessity - Tobacco Use Smoking Status: Never smoker Tobacco Use: Non-smoker Meaningful Use Info Meaningful Use Diagnoses (Choose all that apply): None applicable Code Visit Inpatient E&M: 48226 Disch Hosp
--- NOTE | 2018-11-10 12:44 | DS.PCM_ITS ---
Discharge Date and Diagnosis Date of Admission: 11/07/18 Date of Discharge: 11/10/18 - Primary Discharge Diagnosis #1 hypertension/probable cardiogenic shock. #2 acute kidney injury. 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 No significant interval change. Electronically Signed: Cyndi Escalante MD at 3:48 EST , Service support , Chest X-Ray 11/07/18 10:51 IMPRESSION: No acute pulmonary process Right-sided central venous catheter tip in the distal SVC Electronically Signed: Scott Gambino MD at 11:46 EST , Service support , Brain CT 11/09/18 07:51 IMPRESSION: Normal unenhanced CT scan of the brain. Electronically Signed: Mil Spain MD at 12:47 EST , Service support , Dr. Brown, critical care. Dr. Nayak, cardiology. Operations: None Procedures: 2-D Echocardiogram, EKG Summary of Care Provided: Patient seen and examined on the day of discharge and appeared to be stable to be discharged home. She complained of mild headache. Her vital signs are stable. This is a 38 years old female patient presented to the ED because of dizziness, lightheadedness, found to have hypotension which is attributed to probable cardiogenic shock and also found to have acute kidney injury. #1 hypotension: Attributed to probable cardiogenic shock secondary to junctional rhythm. Patient was on high doses of extended release metoprolol, high-dose of albumin as well as 3 different diuretics. She was admitted to the intensive care unit, treated with IV fluids and IV dopamine drip to maintain blood pressure. With IV fluid and IV vasopressors therapy and discontinuation of her antihypertensives and diuretics, her blood pressure improved. She was started back on small dose of Lasix and remained on lisinopril. Metoprolol and verapamil as well as Aldactone and metolazone discontinued. 2D echocardiogram revealed normal LV size and function, ejection fraction 50%. Her EKG revealed no acute ischemic changes. Troponin was negative. Patient was transferred to the floor PCU and her blood pressure remained stable. She complained of headache and in context of fall, CT scan brain done and showed no acute findings. Patient discharged home in a stable medical condition, discharged on Lasix 20 mg p.o. daily and lisinopril 5 mg p.o. daily, highly recommended to keep close monitoring of her blood pressure, check her blood pressure at least twice daily and follow-up with PCP in 1 week. #2 acute kidney injury: Attributed to above, tissue hypoperfusion. Treated with IV fluids and vasopressors. Serum creatinine is back to normal, resolved. #3 chronic diastolic CHF: Clinically stable, compensated. After treating her hypotension, she was started back on small dose of Lasix and lisinopril and she did well. Verapamil and metoprolol discontinued. 2D echocardiogram reviewed as above. #4 chronic atrial fibrillation: Rate has been controlled, blood pressure stabilized. She was discharged without rate control medicine and without anticoagulation. #5 type 2 diabetes mellitus: Continued on metformin upon discharge.. #6 hypertension: Blood pressure stable, discharged on lisinopril and Lasix. Metoprolol and verapamil discontinued. Patient discharged home in a stable medical condition, discharged on Lasix and lisinopril, highly recommended to monitor his blood pressure very closely, check blood pressure at least twice daily at home, recommended follow-up with PCP in 1 week, follow-up with cardiology in 2-4 weeks and with pulmonology in 2-4 weeks as well. This note was generated with [employer] dictation software. It may contain incorrect words, spelling, and punctuation that were not noted in checking the note before signing. - Physical Exam General: Alert, Oriented x3, Cooperative, No apparent distress HEENT: Atraumatic, PERRLA, EOMI, Normocephalic Oral: Moist Mucosa, No Gingival or Mucosal Lesions/ Ulcerations Neck: Supple, No JVD, Negative Carotid Bruits, Trachea Midline, Thyroid Normal Size and Texture Lungs: Clear to auscultation, No rhonchi, No wheeze, No rales, Diminished Cardiovascular: Regular rate, Regular Rhythm, Normal S1, Normal S2, PMI Normal Abdomen: Bowel Sounds Present, Soft, Non Tender, Non-Distended, No Hepato- splenomegaly, Obese Extremities: No clubbing, No cyanosis, No edema Skin: No rashes, No breakdown Lymphatic: No Cervical, Supraclavicular, or Inguinal Adenopathy Neurological: Cranial nerves II-XII grossly intact, Neuro grossly intact Psych/Mental Status: Normal Affect, Appropriate Vital Signs Temp Pulse Resp BP Pulse Ox 97.8 F 75 18 156/85 H 96 11/10/18 08:30 11/10/18 08:30 11/10/18 08:30 11/10/18 08:30 11/10/18 08:30 Oxygen Flow Rate (L/min) 2 Oxygen Delivery Method Nasal Cannula Weight: 264 lb 5.348 oz Body Mass Index (BMI) 40.9 Finger Stick Blood Glucose 111 Intake and Output for Last 24 Hours 11/08/18 11/09/18 11/10/18 23:59 23:59 23:59 Intake Total 580 / 580 1360 / 1360 970 / 970 Output Total 2100 / 2100 2250 / 2250 200 / 200 Balance -1520 / -1520 -890 / -890 770 / 770 Laboratory Tests Past 24 Hrs 11/10/18 11/10/18 06:50 06:50 WBC 7.7 RBC 5.34 Hgb 14.2 Hct 44.4 MCV 83.1 MCH 26.6 L MCHC 32.0 RDW 13.8 RDW Differential 41.9 Plt Count 240 MPV 9.7 Immature Gran % (Auto) 0.300 Neut % (Auto) 59.3 Lymph % (Auto) 28.7 [place] % (Auto) 9.3 Eos % (Auto) 2.0 Baso % (Auto) 0.4 Absolute Neuts (auto) 4.6 Absolute Lymphs (auto) 2.20 Total Counted Not Reportable Sodium 136 Potassium 4.2 Chloride 103 Carbon Dioxide 28.0 Anion Gap 5 BUN 12 Creatinine 0.88 Estim Creat Clear Calc 89.15 Est GFR (MDRD) Af Amer 93 Est GFR (MDRD) Non-Af 77 BUN/Creatinine Ratio 13.6 Glucose 110 H Calcium 8.9 Phosphorus 3.5 Magnesium 2.1 POC Glucose 11/10/18 11/10/18 11/09/18 11:24 07:00 22:54 POC Glucose 182 H 116 H 129 H 11/09/18 16:51 POC Glucose 103 Discharge Activity: Return to Normal Activity Weight Bearing Status: Weight bearing as tolerated Call your doctor if you observe: Fever of 101 or Higher, Shortness of breath, Dizziness, Fainting spells, Chest pain, Increased palpitations (irregular heartbeat), Uncontrolled pain Home Medications: Medications to take at Discharge Montelukast [Singulair] 10 mg PO QHS 04/21/16 Albuterol Aerosols [Ventolin Aerosols] 2.5 mg INHALATION Q4H PRN PRN 12/03/16 Dicyclomine HCl [Bentyl] 10 mg PO ACHS 12/03/16 gabapentin 100 mg capsule 100 mg PO TID cap 09/24/17 potassium chloride ER 20 mEq tablet,extended release(part/cryst) 10 meq PO BID tab 04/11/18 Ascorbic Acid [Vitamin C] 500 mg PO DAILY@0800 11/07/18 Cetirizine HCl [Zyrtec] 10 mg PO DAILY PRN PRN 11/07/18 Cholecalciferol (Vitamin D3) [Vitamin D3] 5,000 unit PO DAILY 11/07/18 Dulaglutide [Trulicity] 1.5 mg SQ QWEEK 11/07/18 Lisinopril 5 mg PO DAILY 11/07/18 Metformin HCl 500 mg PO DAILY 11/07/18 Pantoprazole Sodium [Protonix] 40 mg PO DAILY 11/07/18 Sertraline HCl [Zoloft] 100 mg PO DAILY 11/07/18 Topiramate [Trokendi Xr] 50 mg PO QHS 11/07/18 Furosemide [Lasix] 20 mg PO DAILY #0 tab 11/10/18 Primary Care Physician: Asim Cohn DO [Primary Care Provider] - Please follow up with your Primary Care Physician in: 1 week. Please Follow Up With: Ketan Nayak MD When: 2-4 weeks. Please Follow Up With: Lorenzo Brown MD When: 2-4 weeks. Please Follow Up With: Asim Cohn DO Disposition: Home Minutes spent on discharge:: 32 Patient Condition:: Stable Medical Necessity - Tobacco Use Smoking Status: Never smoker Tobacco Use: Non-smoker Meaningful Use Info Meaningful Use Diagnoses (Choose all that apply): None applicable Code Visit Inpatient E&M: 79523 Disch Hosp
--- NOTE | 2018-11-11 15:02 | CASEMGMT ---
PATRICK CM DC PHONE CALL DC DATE: 11/10/18 DC DISPOSITION: Home with Directions Home services LACE/STRATA:08/06 Attempted call to patient. no answer and no message machine. 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
== END 2018-11-10 12:35 | disposition home or self-care (01) | DRG 308 ==
LOC: ED 03:39 → ICU 05:45 → PCU 11-08 15:38
PROVIDERS: Internal Medicine; Internal Medicine Critical Care Medicine; Admitting Provider Student in an Organized Health Care Education/Training Program; Emergency Provider Emergency Medicine; Family Provider Family Medicine; PCP Family Medicine; Visit Provider Hospitalist
DX: R00.1 Bradycardia, unspecified (principal); R57.0 Cardiogenic shock; Q79.0 Congenital diaphragmatic hernia; N17.9 Acute kidney failure, unspecified; J96.11 Chronic respiratory failure with hypoxia; Z68.41 Body mass index [BMI] 40.0-44.9, adult; I50.32 Chronic diastolic (congestive) heart failure; E87.2 Acidosis; I48.2 Chronic atrial fibrillation; Z99.81 Dependence on supplemental oxygen; E66.01 Morbid (severe) obesity due to excess calories; I11.0 Hypertensive heart disease with heart failure; E11.9 Type 2 diabetes mellitus without complications; G47.33 Obstructive sleep apnea (adult) (pediatric); T44.7X5A Adverse effect of beta-adrenoreceptor antagonists, initial encounter; T46.1X5A Adverse effect of calcium-channel blockers, initial encounter; T50.2X5A Adverse effect of carbonic-anhydrase inhibitors, benzothiadiazides and other diuretics, initial encounter; Z79.84 Long term (current) use of oral hypoglycemic drugs; J45.909 Unspecified asthma, uncomplicated
CPT/HCPCS: 70450; 71045; 71046; 80048; 81001; 82570; 82962; 83605; 83735; 84100; 84484; 84540; 85025; 85610; 85730; 93005; 93306; 94640; 97162; 97165; 97530; 97802; 99284; J7030; Q9957; A4216; C1751; C8929; J2405

== ENCOUNTER 2018-11-13 15:58 | Emergency (ER) | payer MEDICARE, SELFPAY ==
[2018-11-07 06:31] VITALS: BMI 40.9
[2018-11-13] VITALS (7 sets, daily range): BP systolic 116–155; BP diastolic 59–89; PULSE 69–96; RESP 15–24; TEMP 37.3–37.8; O2SAT 93–98; BMI 39.2
--- NOTE | 2018-11-13 16:32 | CT_ITS ---
STUDY: CT BRAIN WITHOUT CONTRAST REASON FOR EXAM: Female, 38 years old. altered mental status RADIATION DOSAGE (If Supplied By Facility): CTDIvol = ( 44.99 ) mGy, DLP = ( 762.36 ) mGycm TECHNIQUE: Transaxial CT imaging of the brain was performed without administration of intravenous contrast material. Individualized dose optimization techniques were used for this CT. COMPARISON: 11/09/18 FINDINGS: Normal soft tissue structures. Normal calvarium. Normal size ventricles and extra-axial spaces for the patient's age. Normal variant cavum septi pellucidi et vergae. Normal white matter tracts of the cerebral hemispheres. Normal basal ganglia and thalami. Normal brainstem. Normal cerebellum. There is no intracranial hemorrhage. There are no findings of an acute ischemic infarction. Normal visualized paranasal sinuses. CT/Brain/Head without Contrast IMPRESSION: Normal unenhanced CT scan of the brain. Electronically Signed: Jose F Carreon MD at 17:12 EST , Service support ,
--- NOTE | 2018-11-13 16:32 | RAD_ITS ---
STUDY: X-RAY CHEST REASON FOR EXAM: Female, 38 years old. Dizziness, dyspnea TECHNIQUE: AP COMPARISON: 11/10/2018 FINDINGS: Left hemidiaphragm remains elevated. There is atelectasis of the satish bases. There is no demonstrated pleural abnormality. Normal size heart. Normal mediastinum and cherelle. Normal visualized pulmonary arteries. Normal visualized aortic arch and descending thoracic aorta. Normal visualized thoracic spine. Normal visualized ribs, clavicles, and shoulders. There is no demonstrated abnormality of the visualized soft tissue structures of the upper abdomen. RAD/Chest 1 View (Portable) IMPRESSION: Bibasilar atelectasis with elevated left hemidiaphragm. No change Electronically Signed: Jose F Carreon MD at 17:11 EST , Service support ,
--- NOTE | 2018-11-13 16:32 | EKG12_ITS ---
Test Reason : Blood Pressure : / mmHG Vent. Rate : 062 BPM Atrial Rate : 045 BPM P-R Int : 000 ms QRS Dur : 062 ms QT Int : 420 ms P-R-T Axes : 000 097 041 degrees QTc Int : 426 ms Atrial fibrillation Low voltage QRS Abnormal ECG When compared with ECG of 07-NOV-2018 10:23, MANUAL COMPARISON REQUIRED, DATA IS UNCONFIRMED Confirmed by YESENIA DIAZ, ROMEL ([id number]), loan expeditor STANISLAW COLEMAN ([id number]) on 11/14/2018 11:29:14 AM Referred By: LENY Confirmed By:ROMEL PATTERSON MD
[2018-11-13] MEDS: 0.9% Normal Saline 1,000 ML IV.SOLN. 1000 ML IV (16:52)
[2018-11-13 17:00] LABS: Absolute Lymphocyte Count 2.51 X10^3/ul (0.83-4.51); Absolute Neutrophil Count 8.6 X10^3/uL (2.0-7.7); Basophil# 0.04 X10^3/uL; Basophil% 0.3 % (0-1); Eosinophil# 0.02 X10^3/uL; Eosinophils% 0.2 % (0-5); Hematocrit 44.3 % (37-47); Hemoglobin 14.8 g/dl (12.0-15.0); Lymphocyte # 2.51 X10^3/ul (4.0); Lymphocyte % 20.8 % (19-41); Mean Corp Hgb Conc 33.4 g/gl (32-36); Mean Corpuscular Hgb 27.2 pg (27.0-32.0); Mean Corpuscular Volume 81.4 fL (81-99); Mean Platelet Vol. 9.7 fl (6.2-12.0); Monocyte# 0.87 X10^3/uL; Monocyte% 7.2 % (0-10); Neutrophil # 8.61 X10^3/uL (2.7-7.7); Neutrophil % 71.2 % (47-70); POSITIVE COUNT NO; POSITIVE DIFFERENTIAL NO; POSITIVE MORPHOLOGY NO; Platelet Count 271 K/mm3 (150-450); RBC Distribution Width CV 13.5 % (11.6-14.6); RBC Distribution Width SD 39.9 fl (35.1-43.9); Red Blood Count 5.44 M/mm3 (4.2-5.4); White Blood Count 12.1 K/mm3 (4.4-11.0)
[2018-11-13 17:07] LABS: Prothrombin Time (Protime)PT. 13.4 SECONDS (11.7-14.9)
[2018-11-13 17:08] LABS: Partial Thromboplast Time 27.3 Seconds (24.1-36.2)
[2018-11-13 17:21] LABS: Lactic Acid 1.3 mmol/L (0.4-2.0)
[2018-11-13 17:23] LABS: ALB/GLOB Ratio 0.8 RATIO (0.9-2.4); AST(SGOT) 57 U/L (15-37); Alanine Aminotransfer ALT/SGPT 101 U/L (13-56); Albumin, Serum 3.8 g/dL (3.2-5.0); Alkaline Phosphatase 72 U/L (45-117); Anion Gap 7 (5-15); BUN 11 mg/dL (7-18); BUN/Creat Ratio 13.4 RATIO (10-20); Calcium,Total 8.9 mg/dL (8.5-10.1); Chloride 103 mmol/L (98-107); Creatinine, Serum 0.82 mg/dL (0.55-1.02); EST Glomerular Filtration Rate 84 mL/min (>60); Est Glom Filt Rate - Afr Amer 101 mL/min (>60); Estimated Creatinine Clearance 99.12 ml/min; Globulin 4.6 g/dL (2.2-4.2); Glucose 120 mg/dL (74-106); Potassium 3.6 mmol/L (3.5-5.1); Protein, Total 8.4 g/dL (6.4-8.2); Sodium Level 136 mmol/L (136-145)
[2018-11-13 18:43] LABS: Bacteria 0 SEEN /hpf (None Seen); Mucous, Urine 0 SEEN /hpf (<or=2+); Red Blood Cells-Urine 0 SEEN /hpf (0-5)
[2018-11-13 19:03] LABS: Color, Urine Yellow (Yellow); Glucose, Dipstick Normal (Normal); Ketone-Dipstick Negative (Negative); Leukocyte Esterase-Dipstick 25 /ul (Negative); Nitrite-Dipstick Negative (Negative); Occult Blood-Urine Negative /ul (Negative); Protein-Dipstick Negative (Negative); Urine Bilirubin Dipstick Negative (Negative); Urine Clarity Clear (Clear); Urine Urobilinogen Normal (Normal)
[2018-11-13 19:14] LABS: Squamous Epithelial Cells - UA 0-5 SEEN /hpf (5-10); White Blood Cells 0-5 SEEN /hpf (0-5)
[2018-11-13] MEDS: Ondansetron 4 MG/2 ML Vial IV (19:48)
--- NOTE | 2018-11-13 19:48 | ED.VISSUMM ---
- ER Visit Summary Date of Service: 11/13/18 Chief Complaint: Lightheaded History of Present Illness: The patient is a 38 F who complains of lightheadedness today. Patient feels like she might pass out. She also reports a headache. She says her blood pressure has been up and down. She is also worried that her heart rate has been low. She was recently admitted to the hospital for possible cardiogenic shock as well as COPD. She was doing well since discharge up until today. She also reports subjective fevers, chills, and sweats. Mild shortness of breath and nausea. Urinary frequency. Physical Examination: Low-grade temperature of 100 even. Otherwise vitals unremarkable. Blood pressure 155/89 and heart rate 96. Patient is alert and oriented. No acute distress. GCS 15. Head and neck atraumatic. HEENT exam unremarkable. Neck is nontender. Heart regular rate and rhythm. Lungs clear. Abdomen soft and nontender. Good strength and sensation in all extremities. She does use a walker to ambulate. Test Results: EKG showed sinus rhythm at a rate of 86. No sign of acute ischemia or infarction pattern. CT brain showed a normal evaluation. Chest x-ray showed bibasilar atelectasis but no changes. White count 12.1 but otherwise blood count normal. Glucose 120, ALT 101 and AST 57. Coags normal. Urinalysis normal. Troponin normal. Lactate normal. Cultures pending. Flu was negative. Emergency Department Course and Treatment: Patient treated with fluids while awaiting results. She was normotensive during the visit. Normal heart rate. No dysrhythmias. No fevers. No new or worsening symptoms. She was treated with Toradol and Zofran for her symptoms. Her white count has slightly increased to 12.1. She is having subjective fevers. Blood cultures are still pending, but otherwise her workup is unremarkable. I advised the patient that there are risks of being admitted versus going home. They would like to try to go home. She will stay hydrated. Take her medications. Return for new or worsening issues. Treatment Plan: As above Disposition: Discharge Impression: 1. Near syncope This note was generated with [employer] software. It may contain incorrect words, spelling, and punctuation that were not noted in review of the chart prior to signing ED Disposition - Plan for ED Patient: Referrals: Asim Cohn DO [Primary Care Provider] -
[2018-11-13] MEDS: Ketorolac 15 MG/ML Vial IV (19:50)
--- NOTE | 2018-11-13 19:51 | ED.DEP ---
ED Disposition - Plan for ED Patient: Instructions: ED Near Syncope Unkn Referrals: Asim Cohn DO [Primary Care Provider] -
== END 2018-11-13 20:12 | disposition home or self-care (01) ==
PROVIDERS: Emergency Provider Emergency Medicine; Family Provider Family Medicine; PCP Family Medicine
DX: R55 Syncope and collapse (principal); R51 Headache; R06.00 Dyspnea, unspecified; R35.0 Frequency of micturition; J98.11 Atelectasis; I11.0 Hypertensive heart disease with heart failure; I50.9 Heart failure, unspecified; J44.9 Chronic obstructive pulmonary disease, unspecified; E11.9 Type 2 diabetes mellitus without complications; G47.33 Obstructive sleep apnea (adult) (pediatric); I48.91 Unspecified atrial fibrillation; Z87.448 Personal history of other diseases of urinary system; Z79.84 Long term (current) use of oral hypoglycemic drugs; Z79.899 Other long term (current) drug therapy
CPT/HCPCS: 70450; 71045; 80053; 81001; 83605; 84484; 85025; 85610; 85730; 87040; 87086; 87804; 93005; 96361; 96374; 96375; 99284; J7030; A4216; J2405

== ENCOUNTER → 2018-12-20 11:53 | Outpatient (CLI) | payer MEDICARE, SELFPAY ==
[2018-11-18 10:16] VITALS: BMI 39.0
[2018-12-20 13:21] LABS: Anion Gap 4 (5-15); BUN 10 mg/dL (7-18); BUN/Creat Ratio 12.7 RATIO (10-20); Chloride 107 mmol/L (98-107); Creatinine, Serum 0.79 mg/dL (0.55-1.02); EST Glomerular Filtration Rate 88 mL/min (>60); Est Glom Filt Rate - Afr Amer 106 mL/min (>60); Glucose 113 mg/dL (74-106); Potassium 3.9 mmol/L (3.5-5.1); Sodium Level 136 mmol/L (136-145)
== END ==
PROVIDERS: Family Provider Family Medicine; PCP Family Medicine; Referring Provider Internal Medicine Nephrology; Visit Provider Internal Medicine Nephrology
DX: R80.9 Proteinuria, unspecified (principal)
CPT/HCPCS: 36415; 80048

== ENCOUNTER 2019-01-13 17:02 | Emergency (ER) | payer MEDICARE, SELFPAY ==
[2019-01-12 14:24] VITALS: BMI 39.0
[2019-01-13] VITALS (9 sets, daily range): BP systolic 151–185; BP diastolic 90–107; PULSE 77–100; RESP 17–30; TEMP 36.4–36.9; O2SAT 96–100; BMI 42.4
--- NOTE | 2019-01-13 17:19 | EKG12_ITS ---
Test Reason : CP Blood Pressure : / mmHG Vent. Rate : 086 BPM Atrial Rate : 086 BPM P-R Int : 170 ms QRS Dur : 066 ms QT Int : 372 ms P-R-T Axes : 065 060 061 degrees QTc Int : 445 ms Normal sinus rhythm with sinus arrhythmia Low voltage QRS Borderline ECG Confirmed by SHARATH HARRIS ([id number]), editor map STANISLAW COLEMAN ([id number]) on 01/16/2019 4:42:48 PM Referred By: NAVEEN/NARCISA Confirmed By:SHARATH HARRIS
--- NOTE | 2019-01-13 17:20 | RAD_ITS ---
STUDY: X-RAY CHEST REASON FOR EXAM: Female, 38 years old. CHEST PAIN, HYPERTENSION, SOB- ON O2 ALL THE TIME TECHNIQUE: Single AP portable view of the chest. COMPARISON: 11/13/2018, 11/28/2017. FINDINGS: Exam limited by patient's size with significant overlying breast tissue. Normal lung volumes. Elevated left hemidiaphragm, stable. No definite infiltrates or effusions. No definite congestion. Mild cardiomegaly. RAD/Chest 1 View (Portable) IMPRESSION: No definite acute chest disease. Increased density in both lung bases appear to be related to overlying soft tissues. Electronically Signed: Dwight Ross MD at 17:41 EDT , Service support ,
--- NOTE | 2019-01-13 17:26 | ED.VISSUMM ---
- ER Visit Summary Date of Service: 01/13/19 Chief Complaint: Chest pain History of Present Illness: The patient is a 38 F presenting with chest pain. She states this started around 230pm this afternoon. She complains of midsternal chest pain. She also complains of bilateral arm and leg tingling. She complains of dizziness with near syncope. She has chronic shortness of breath. She is on home O2 3 L. She has a history of CHF, asthma, COPD, diabetes, hypertension, congenital heart disease, morbid obesity, obstructive sleep apnea. She states she had open heart surgery at age 9. She is not a smoker. Physical Examination: Vitals are stable. Patient is afebrile. Alert no acute distress. HEENT exam is unremarkable. Neck is supple. Lungs are clear and equal bilaterally. Mid chest tenderness to palpation with no crepitus Heart is regular rate and rhythm. Abdomen is soft nontender nondistended. Extremities are unremarkable. Skin is warm and dry. No focal neurologic deficit. Remainder of exam is unremarkable. Emergency Department Course and Treatment: Patient given aspirin, morphine, Zofran. EKG is sinus rate of 86 no acute ischemic changes. Chest x-ray shows no acute process. CBC, chemistries unremarkable. Troponin negative. BNP normal. Delta troponin is also negative. On reevaluation, patient is resting comfortably. Advised to follow-up with her primary care physician. Advised return to ED if worsening complaints. Disposition: Discharge home Impression: Chest wall pain This note was generated with [employer] dictation software. It may contain incorrect words, spelling, and punctuation that were not noted in review of the chart prior to signing ED Disposition - Plan for ED Patient: Instructions: ED Chest Pain Atypical Unkn Cause Referrals: Asim Cohn DO [Primary Care Provider] -
[2019-01-13] MEDS: Morphine 4 MG/ML Syringe IV ×2 (17:31→18:55)
[2019-01-13 17:32] LABS: Absolute Lymphocyte Count 2.26 X10^3/ul (0.83-4.51); Absolute Neutrophil Count 4.6 X10^3/uL (2.0-7.7); Basophil# 0.02 X10^3/uL; Basophil% 0.3 % (0-1); Eosinophil# 0.06 X10^3/uL; Eosinophils% 0.8 % (0-5); Hematocrit 40.1 % (37-47); Hemoglobin 13.5 g/dl (12.0-15.0); Lymphocyte # 2.26 X10^3/ul (4.0); Lymphocyte % 29.4 % (19-41); Mean Corp Hgb Conc 33.7 g/gl (32-36); Mean Corpuscular Hgb 26.9 pg (27.0-32.0); Mean Platelet Vol. 9.9 fl (6.2-12.0); Monocyte# 0.73 X10^3/uL; Monocyte% 9.5 % (0-10); Neutrophil % 59.7 % (47-70); Platelet Count 232 K/mm3 (150-450); RBC Distribution Width CV 13.7 % (11.6-14.6); RBC Distribution Width SD 39.3 fl (35.1-43.9); Red Blood Count 5.01 M/mm3 (4.2-5.4); White Blood Count 7.7 K/mm3 (4.4-11.0)
[2019-01-13] MEDS: Ondansetron 4 MG/2 ML Vial IV (17:32)
[2019-01-13] MEDS: Aspirin 81 MG TAB.CHEW 324 MG PO (17:32)
[2019-01-13 17:35] LABS: POSITIVE COUNT NO; POSITIVE DIFFERENTIAL NO; POSITIVE MORPHOLOGY NO
[2019-01-13 17:50] LABS: Anion Gap 6 (5-15); BUN 11 mg/dL (7-18); BUN/Creat Ratio 13.7 RATIO (10-20); Calcium,Total 8.7 mg/dL (8.5-10.1); Chloride 107 mmol/L (98-107); EST Glomerular Filtration Rate 86 mL/min (>60); Est Glom Filt Rate - Afr Amer 104 mL/min (>60); Estimated Creatinine Clearance 98.07 ml/min; Glucose 133 mg/dL (74-106); Potassium 3.6 mmol/L (3.5-5.1); Sodium Level 140 mmol/L (136-145)
[2019-01-13 19:20] LABS: BNP,B-Type NATRIURETIC PEPTIDE 40.7 pg/mL (0-100)
[2019-01-13 20:36] LABS: Bedside Glucose 77 mg/dL (70-110)
--- NOTE | 2019-01-13 21:23 | ED.DEP ---
ED Disposition - Plan for ED Patient: Instructions: ED Chest Pain Atypical Unkn Cause Referrals: Asim Cohn DO [Primary Care Provider] -
== END 2019-01-13 21:42 | disposition home or self-care (01) ==
LOC: ED 17:37
PROVIDERS: Emergency Provider Emergency Medicine; Family Provider Family Medicine; PCP Family Medicine
DX: R07.89 Other chest pain (principal); E11.9 Type 2 diabetes mellitus without complications; I11.0 Hypertensive heart disease with heart failure; I50.9 Heart failure, unspecified; J44.9 Chronic obstructive pulmonary disease, unspecified; J45.909 Unspecified asthma, uncomplicated; E66.01 Morbid (severe) obesity due to excess calories; G47.33 Obstructive sleep apnea (adult) (pediatric); Z99.81 Dependence on supplemental oxygen; Z79.51 Long term (current) use of inhaled steroids; Z79.84 Long term (current) use of oral hypoglycemic drugs; Z79.899 Other long term (current) drug therapy
CPT/HCPCS: 71045; 80048; 82962; 83880; 84484; 85025; 93005; 96374; 96375; 96376; 99285; A4216; J2405

== ENCOUNTER → 2019-01-17 10:10 | Outpatient (CLI) | payer MEDICARE, SELFPAY ==
[2018-11-18 10:16] VITALS: BMI 39.0
[2019-01-13 17:03] VITALS: BMI 42.4
--- NOTE | 2019-01-17 10:14 | US_ITS ---
STUDY: RENAL ULTRASOUND - COMPLETE REASON FOR EXAM: Female, 38 years old. Diabetes. TECHNIQUE: Ultrasound evaluation of the kidneys was performed with real-time and static lewis-scale imaging. COMPARISON: None. FINDINGS: RIGHT KIDNEY: Normal location of the right kidney, which is normal in size. The right kidney measures 12.0 x 5.6 x 5.4 cm. There is a normal cortex of the right kidney. The renal cortex measures 1.6 cm. There is no right renal mass or cyst. There are no right renal calculi. Minimal hydronephrosis. DISTAL RIGHT URETER: There is non-visualization of the distal right ureter. There is no demonstrated right ureterovesical junction calculus. There is no demonstrated right ureteral jet. LEFT KIDNEY: Normal location of the left kidney, which is normal in size. The left kidney measures 12.3 x 4.6 x 5.7 cm. There is a normal cortex of the left kidney. The renal cortex measures cm. There is no left renal mass or cyst. There are no left renal calculi. There is no left hydronephrosis. DISTAL LEFT URETER: There is non-visualization of the distal left ureter. There is no demonstrated left ureterovesical junction calculus. There is a visualized left ureteral jet. BLADDER: The distended urinary bladder has a volume of 469.7 ml. The empty urinary bladder has a volume of 34.6 ml. There is a normal wall thickness of the distended urinary bladder. There is no demonstrated mass within the urinary bladder. There are no demonstrated bladder calculi. US/Kidney and Bladder IMPRESSION: Minimal right-sided hydronephrosis. Electronically Signed: Osmel Chavis MD at 3:59 EDT Tel , Service support ,
== END ==
PROVIDERS: Family Provider Family Medicine; PCP Family Medicine; Referring Provider Internal Medicine Nephrology; Visit Provider Internal Medicine Nephrology
DX: E11.9 Type 2 diabetes mellitus without complications (principal)
CPT/HCPCS: 76770

== ENCOUNTER → 2019-02-08 | Outpatient (CLI) | payer MEDICARE, SELFPAY ==
[2019-02-08 10:37] VITALS: BMI 42.4
[2019-02-10 13:57] LABS: HPV APTIMA, High Risk Negative (Negative)
== END | disposition home or self-care (01) ==
LOC: LABSPEC 13:07
PROVIDERS: Family Provider Family Medicine; PCP Family Medicine; Referring Provider Nurse Practitioner Women's Health; Visit Provider Nurse Practitioner Women's Health
DX: I47.1 Supraventricular tachycardia (principal); Z12.4 Encounter for screening for malignant neoplasm of cervix; N91.2 Amenorrhea, unspecified
CPT/HCPCS: 36415; 83001; 84443; 87624; 88175; G0145

== ENCOUNTER → 2019-02-08 | Outpatient (CLI) | payer MEDICARE, SELFPAY ==
[2019-02-08 10:37] VITALS: BMI 42.4
[2019-02-08 12:05] LABS: Follicle Stimulating Hormone 6.8 mIU/mL; Thyroid Stim Hormone (TSH) 1.42 uIU/mL (0.358-3.74)
== END | disposition home or self-care (01) ==
LOC: PAVLAB 10:57
PROVIDERS: Family Provider Family Medicine; PCP Family Medicine; Visit Provider Nurse Practitioner Women's Health
DX: I47.1 Supraventricular tachycardia (principal); N91.2 Amenorrhea, unspecified
CPT/HCPCS: 36415; 83001; 84443

== ENCOUNTER → 2019-03-14 | Outpatient (CLI) | payer MEDICARE, SELFPAY ==
[2019-03-08 15:24] VITALS: BMI 41.9
[2019-03-14 08:55] LABS: Hemoglobin A1c 7.1 % (4.2-6.3)
[2019-03-14 08:59] LABS: ALB/GLOB Ratio 0.8 RATIO (0.9-2.4); AST(SGOT) 87 U/L (15-37); Alanine Aminotransfer ALT/SGPT 120 U/L (13-56); Albumin, Serum 3.4 g/dL (3.2-5.0); Alkaline Phosphatase 77 U/L (45-117); Anion Gap 6 (5-15); BUN 12 mg/dL (7-18); BUN/Creat Ratio 13.9 RATIO (10-20); Calcium,Total 8.7 mg/dL (8.5-10.1); Chloride 103 mmol/L (98-107); Cholesterol 243 mg/dL (200); Creatinine, Serum 0.86 mg/dL (0.55-1.02); EST Glomerular Filtration Rate 79 mL/min (>60); Est Glom Filt Rate - Afr Amer 95 mL/min (>60); Globulin 4.4 g/dL (2.2-4.2); Glucose 161 mg/dL (74-106); High Density Lipoprotein 38 mg/dL; Potassium 3.5 mmol/L (3.5-5.1); Protein, Total 7.8 g/dL (6.4-8.2); Sodium Level 136 mmol/L (136-145); Triglycerides 252 mg/dL; Very Low Density Lipoprotein 50 mg/dL (5-40)
[2019-03-14 09:08] LABS: Microalbumin:Creatinine Ratio 280.8 mg/g CRE (<30 mg/g CRE)
== END | disposition home or self-care (01) ==
LOC: LAB 07:50
PROVIDERS: Family Provider Family Medicine; PCP Family Medicine; Referring Provider Internal Medicine Endocrinology, Diabetes & Metabolism; Visit Provider Internal Medicine Endocrinology, Diabetes & Metabolism
DX: E11.9 Type 2 diabetes mellitus without complications (principal)
CPT/HCPCS: 36415; 80053; 80061; 82043; 82570; 83036; 84443

== ENCOUNTER 2019-03-20 15:29 | Emergency (ER) | payer MEDICARE, SELFPAY ==
[2019-03-08 15:24] VITALS: BMI 41.9
[2019-03-20 15:29] VITALS: BP 153/98; PULSE 103; RESP 18; TEMP 36.8; O2SAT 97; BMI 52.0
--- NOTE | 2019-03-20 15:45 | EKG12_ITS ---
Test Reason : DIZZINESS Blood Pressure : / mmHG Vent. Rate : 102 BPM Atrial Rate : 102 BPM P-R Int : 170 ms QRS Dur : 060 ms QT Int : 328 ms P-R-T Axes : 069 060 061 degrees QTc Int : 427 ms Sinus tachycardia Biatrial enlargement Abnormal ECG Confirmed by YULISSA DIAZ, DARLYN ([id number]), story editor CHELI LOPEZ ([id number]) on 03/22/2019 12:07:51 PM Referred By: DEE Confirmed By:DARLYN DUENAS MD
--- NOTE | 2019-03-20 15:51 | ED.DCSUM_ITS ---
History of Present Illness Chief Complaint: Dizziness Narrative: Patient presenting secondary to multiple complaints. Patient has an underlying history of difficult to control hypertension, mild congestive heart failure, anxiety, and some pulmonary disease. She is intermittently on oxygen. Patient states that since November when she was admitted to the hospital they have been titrating her blood pressure and heart medications. She reports that she has been having some labile blood pressures, she will have blood pressures that are hypertensive 180s over 120s and then she will drop down into the 80s over 60s. Intermittently she reports that this is associated with feelings of lightheadedness. Patient states that this will come and go and tends to be worse with change in position. She also endorses that she has intermittent palpitations and chest discomfort. She currently endorses that she is having so me mild nausea but no vomiting no diarrhea no constipation or abdominal pain. Review of systems otherwise negative. Past Medical History - Allergies and Home Meds Allergies/Adverse Reactions: Allergies nabumetone Allergy (Unknown, Verified 03/20/19 15:32) Unknown hydrocodone bitartrate [From [place]] Allergy (Verified 03/20/19 15:32) Itching Penicillins Allergy (Verified 03/20/19 15:32) Swelling Primary Care Physician: Asim Cohn DO [Primary Care Provider] - Surgical History: - Smoking Status: Never smoker - Family History Maternal Family History: Family History (Last Reviewed 02/21/19 @ 10:52 by Miladis Unger) Mother Diabetes Kidney disease Family History: Reports: No pertinent history Paternal Family History: Family History (Last Reviewed 02/21/19 @ 10:52 by Miladis Unger) Mother Diabetes Kidney disease Family History: Reports: No pertinent history Review of Systems All systems negative except as indicated General: Denies: Fever Cardiovascular: Reports: Chest pain, Palpitations Gastrointestinal: Reports: Nausea. Denies: Abdominal pain, Vomiting, Diarrhea, Constipation Genitourinary: Denies: Dysuria, Hematuria, Frequency Neurological: Denies: Headache, Weakness, Parasthesia, Numbness Physical Exam Vital Signs/Narrative: Vital Signs Temp Pulse Resp BP Pulse Ox 03/20/19 15:29 98.2 F 103 H 18 153/98 H 97 General: Well nourished, Well developed, No Acute Distress Head: Normocephalic, Atraumatic Eyes: Perrl, EOMI ENT: Moist mucous membranes, No rhinorrhea Neck: Supple, Nontender Cardiovascular: Regular rate, Regular rhythm, No murmurs, - - 2+ radial pulses bilaterally symmetric. 2+ PT pulses bilaterally symmetric. Respiratory: No distress, CTA bilaterally, Chest nontender Abdomen: Soft, Nontender, Nondistended, Normal bowel sounds Back: Nontender, Normal Inspection Extremities: Nontender, No edema Skin: Normal color, No rash Neurological: Alert - Somewhat anxious, Oriented x3, Cranial nerves II-XII grossly intact, Normal Strength, Normal Sensation Diagnostic/Tx/Re-eval - EKG Initial EKG Interpretation: - - Sinus tachycardia with ventricular rate of 102. Atrial enlargement is noted, isoelectric ST segments normal T waves no evidence of acute ischemia or arrhythmia. - Medical Decision Making Patient presented secondary to complaints of blood pressure lability and some dizziness. Patient had normal stable blood pressures in the emergency department during her entire stay. EKG was performed which was normal. CBC chemistry troponin urinalysis and chest x-ray were also obtained which were normal. Patient was able to ambulate easily in the emergency department without any sort of incident. At this point I believe this to be a chronic issue is at this been going on since November. Patient was recommended to follow-up with primary care as well as with cardiology to continue working on titrating her medications. She was given reassurance and the patient was discharged. ED Disposition - Plan for ED Patient: Disposition: Home or Assisted Living Diagnosis: Lightheadedness Instructions: ED Dizziness [facility] Referrals: Asim Cohn DO [Primary Care Provider] - 5-7 Days
[2019-03-20 16:03] VITALS: BP 120/83; PULSE 94; RESP 20; O2SAT 97
--- NOTE | 2019-03-20 16:15 | RAD_ITS ---
STUDY: X-RAY CHEST REASON FOR EXAM: Female, 38 years old. Lightheaded TECHNIQUE: PA and lateral views of the chest. COMPARISON: 01/13/2019 FINDINGS: There is elevation of the left hemidiaphragm, unchanged. There is pectus excavatum. The lungs are clear and expanded. There is no demonstrated pleural abnormality. Normal size heart. Normal mediastinum and cherelle. Normal visualized pulmonary arteries. Normal visualized aortic arch and descending thoracic aorta. Normal visualized thoracic spine. Normal visualized ribs, clavicles, and shoulders. There is no demonstrated abnormality of the visualized soft tissue structures of the upper abdomen. RAD/Chest PA and Lateral IMPRESSION: Clear lungs. Stable elevation of the left hemidiaphragm. Pectus excavatum. Electronically Signed: Socorro Mullins, at 16:28 EDT Tel , Service support ,
[2019-03-20 16:21] LABS: White Blood Cells 0 SEEN /hpf (0-5)
[2019-03-20 16:23] LABS: Bacteria 0 SEEN /hpf (None Seen); Mucous, Urine 0 SEEN /hpf (<or=2+); Red Blood Cells-Urine 0 SEEN /hpf (0-5)
[2019-03-20 16:25] LABS: Color, Urine Yellow (Yellow); Glucose, Dipstick Normal (Normal); Ketone-Dipstick Negative (Negative); Leukocyte Esterase-Dipstick Negative /ul (Negative); Nitrite-Dipstick Negative (Negative); Occult Blood-Urine Negative /ul (Negative); Protein-Dipstick 15 mg/dl (Negative); Urine Bilirubin Dipstick Negative (Negative); Urine Clarity Clear (Clear); Urine Urobilinogen Normal (Normal)
[2019-03-20 16:29] LABS: Internal QC Validated? YES +Cl - CLEAR BKGD; Pregnancy, Urine Negative Negative
[2019-03-20 16:31] LABS: Squamous Epithelial Cells - UA 0-5 SEEN /hpf (5-10)
[2019-03-20 16:32] LABS: Absolute Lymphocyte Count 2.26 X10^3/ul (0.83-4.51); Basophil# 0.02 X10^3/uL; Basophil% 0.2 % (0-1); Eosinophil# 0.07 X10^3/uL; Eosinophils% 0.7 % (0-5); Hemoglobin 14.7 g/dl (12.0-15.0); Lymphocyte # 2.26 X10^3/ul (4.0); Lymphocyte % 22.3 % (19-41); Mean Corp Hgb Conc 34.2 g/gl (32-36); Mean Corpuscular Hgb 27.8 pg (27.0-32.0); Mean Corpuscular Volume 81.3 fL (81-99); Mean Platelet Vol. 9.4 fl (6.2-12.0); Monocyte# 0.71 X10^3/uL; Neutrophil # 7.03 X10^3/uL (2.7-7.7); Neutrophil % 69.5 % (47-70); Platelet Count 279 K/mm3 (150-450); RBC Distribution Width CV 13.5 % (11.6-14.6); RBC Distribution Width SD 40.1 fl (35.1-43.9); Red Blood Count 5.29 M/mm3 (4.2-5.4); White Blood Count 10.1 K/mm3 (4.4-11.0)
[2019-03-20 16:41] LABS: POSITIVE COUNT NO; POSITIVE DIFFERENTIAL NO; POSITIVE MORPHOLOGY NO
[2019-03-20] MEDS: Ondansetron 4 MG/2 ML Vial IV (16:46)
[2019-03-20 16:48] LABS: Anion Gap 10 (5-15); BUN 8 mg/dL (7-18); BUN/Creat Ratio 8.3 RATIO (10-20); Calcium,Total 9.2 mg/dL (8.5-10.1); Chloride 100 mmol/L (98-107); Creatinine, Serum 0.97 mg/dL (0.55-1.02); EST Glomerular Filtration Rate 69 mL/min (>60); Est Glom Filt Rate - Afr Amer 84 mL/min (>60); Estimated Creatinine Clearance 63.41 ml/min; Glucose 143 mg/dL (74-106); Potassium 3.4 mmol/L (3.5-5.1); Sodium Level 139 mmol/L (136-145)
[2019-03-20 17:06] VITALS: BP 133/81; PULSE 89; RESP 16; O2SAT 99
== END 2019-03-20 17:08 | disposition home or self-care (01) ==
PROVIDERS: Emergency Provider Emergency Medicine; Family Provider Family Medicine; PCP Family Medicine
DX: R42 Dizziness and giddiness (principal); R11.0 Nausea; R00.2 Palpitations; R07.89 Other chest pain; I11.0 Hypertensive heart disease with heart failure; I50.9 Heart failure, unspecified; F41.9 Anxiety disorder, unspecified; J98.4 Other disorders of lung; Z79.84 Long term (current) use of oral hypoglycemic drugs; Z79.899 Other long term (current) drug therapy
CPT/HCPCS: 71046; 80048; 81001; 81025; 84484; 85025; 93005; 96374; 99285; A4216; J2405

== ENCOUNTER → 2019-05-02 | Outpatient (CLI) | payer MEDICARE, SELFPAY ==
[2019-03-31 10:17] VITALS: BMI 51.0
--- NOTE | 2019-05-02 09:37 | STRESSREP ---
Stress Test Report Date: 05-02-19 Procedure: Exercise tolerance test/imaging study Indications: Chest pain; shortness of breath/dyspnea Consent: Per the patient Procedure: The patient exercised on a Lorenzo protocol for 4 minutes and 54 seconds completing Stage I and 1 minute and 54 seconds of Stage II achieving a peak heart rate of 166 bpm (90 % predicted maximal heart rate) with a peak blood pressure 180/88 mmHg and a peak MET capacity of 6 METs. The baseline ECG demonstrated normal sinus rhythm; nonspecific T wave abnormality. The peak exercise ECG demonstrated no obvious ECG changes. There was an occasional PAC during recovery. The functional capacity was considered decreased. There was no chest discomfort during exercise or recovery. The examination was discontinued secondary to dyspnea and fatigue. Impression: 1. Technically adequate (percent predicted maximal heart rate greater than 85%) exercise tolerance test 2. Peak exercise ECG demonstrated no obvious ECG changes 3. There was an occasional PAC during recovery . O2 saturation: Pre-exercise: 96% on room air during exercise: Decreased to 82% on room air: Patient placed on 2 L nasal cannula pending resolution of the study and return to baseline status. 4. Nuclear images pending Myocardial perfusion imaging study: Technique: The patient was injected with 14.9 mCi of technetium 99m Cardiolite and subsequently rest SPECT Cardiolite nuclear imaging was obtained in the horizontal long, vertical long, and short axis views. The patient exercised on a Lorenzo protocol for 4 minutes and 54 seconds completing Stage I and 1 minute and 54 seconds of Stage II achieving a peak heart rate of 166 bpm (90 % predicted maximal heart rate) with a peak blood pressure 180/88 mmHg and a peak MET capacity of 6 METs. The patient was injected with 44.8 mCi of technetium 99m Cardiolite and subsequently stress SPECT Cardiolite nuclear imaging was obtained in the horizontal long, vertical long, and short axis views. A gated Cardiolite study at peak stress was obtained. Interpretation: Rest and stress SPECT Cardiolite nuclear imaging status post realignment, normalization, and attenuation correction, demonstrates the appearance of relative uniform tracer uptake and myocardial perfusion appearing within normal limits. There is end systolic thickening and brightening. The gated Cardiolite study demonstrates myocardial thickening and inward wall motion. The reported LVEF is 75 %. Impression: 1. Rest and stress SPECT Cardiolite nuclear imaging demonstrate relative uniform tracer uptake and myocardial perfusion appearing within normal limits. 2. The gated Cardiolite study reports an LVEF of 75 %. This note was generated with [employer] software. It may contain incorrect words, spelling, and punctuation that were not noted in checking the note before signing.
== END | disposition home or self-care (01) ==
LOC: CVS 06:09
PROVIDERS: Family Provider Family Medicine; PCP Family Medicine; Referring Provider Nurse Practitioner Family; Visit Provider Nurse Practitioner Family
DX: R06.02 Shortness of breath (principal); R07.89 Other chest pain; E11.9 Type 2 diabetes mellitus without complications; I11.0 Hypertensive heart disease with heart failure; I50.9 Heart failure, unspecified
CPT/HCPCS: 78452; 93017; A9500; A4216

== ENCOUNTER 2019-05-09 14:20 | Emergency (ER) | payer MEDICARE, SELFPAY ==
[2019-03-31 10:17] VITALS: BMI 51.0
[2019-05-09 14:36] VITALS: BP 170/95; PULSE 107; RESP 20; TEMP 36.9; O2SAT 97; BMI 41.8
[2019-05-09 16:49] VITALS: BP 134/87; PULSE 80; RESP 16; TEMP 36.9; O2SAT 95
--- NOTE | 2019-05-09 16:51 | EKG12_ITS ---
Test Reason : ANXIETY Blood Pressure : / mmHG Vent. Rate : 073 BPM Atrial Rate : 073 BPM P-R Int : 186 ms QRS Dur : 070 ms QT Int : 402 ms P-R-T Axes : 001 065 037 degrees QTc Int : 442 ms Normal sinus rhythm Normal ECG Confirmed by SHARATH HARRIS ([id number]), editorial intern AFIA ROMERO ([id number]) on 05/10/2019 2:31:21 PM Referred By: NAVEEN Confirmed By:SHARATH HARRIS
--- NOTE | 2019-05-09 17:07 | ED.VISSUMM ---
- ER Visit Summary Date of Service: 05/09/19 Chief Complaint: Chest pain and hypertension History of Present Illness: The patient is a 38 F who presents with chest pain hypertension is been getting worse over the past 4 days. Patient states the pain is sharp and over the substernal area. Patient states she gets lightheaded and off-balance. Patient states this is worse with standing. Patient states she checked her blood pressure today at home and was 200 systolic. Patient states she was dizzy and fell but did not lose consciousness. Patient states while she was lying on the floor she pushed her life alert button which checked her blood pressure and heart rate. Patient states her blood pressure at that time was 190 systolic. Patient states it felt like the room was spinning around her at the time. Patient admits to some shortness of breath but has a history of chronic shortness of breath and is on home oxygen. Physical Examination: Vital signs are stable except for mild tachycardia of 107. Patient's blood pressure is slightly elevated at 170/95. Oral mucosa is pink and moist. Neck is supple. Trachea is midline. There is no JVD noted. Heart was regular rate and rhythm. Lungs are clear and equal bilaterally. There is some mild sternal tenderness with palpation. Abdomen is soft. Bowel sounds are normal. There is no tenderness. Cranial nerves II through XII are intact. There are no focal motor or sensory deficits noted. Test Results: EKG showed normal sinus rhythm with a rate of 73. There are no acute ST or T wave changes. CBC, basic metabolic profile, troponin, and hCG were obtained and were negative. PA and lateral chest x-ray was obtained and was negative. Patient complained of worsening headache and worsening dizziness. CT scan of the brain was obtained and was negative. Emergency Department Course and Treatment: She was given a dose of meclizine here in the emergency department. Patient's blood pressure improved during her stay in the emergency department. Orthostatic vital signs were obtained and were normal. Patient had no dizziness with sitting or standing. Patient is concerned about her headache. Patient was given Reglan and Benadryl. Patient was instructed to follow-up with her primary care physician in 3 to 5 days. Patient understood and was agreeable with the plan. All questions were answered. Disposition: Discharge home Impression: 1. Headache 2. Dizziness This note was generated with Par[employer]ation software. It may contain incorrect words, spelling, and punctuation that were not noted in review of the chart prior to signing ED Disposition - Plan for ED Patient: Disposition: Home or Assisted Living Diagnosis: Headache, Dizziness Instructions: HEADACHE, Unspecified, DIZZINESS, Unk Cause Referrals: Asim Cohn DO [Primary Care Provider] - 3-5 Days
[2019-05-09] MEDS: Aspirin 81 MG TAB.CHEW 324 MG PO (17:16)
[2019-05-09] MEDS: Acetaminophen 500 MG Tablet 1000 MG PO (17:17)
[2019-05-09] MEDS: Nitroglycerin SL (ED/IMG/CATH) 0.4 MG TABLET SUBLINGUAL ×2 (17:17→18:03)
[2019-05-09 17:20] LABS: Absolute Neutrophil Count 6.7 X10^3/uL (2.0-7.7); Basophil# 0.03 X10^3/uL; Basophil% 0.3 % (0-1); Eosinophil# 0.05 X10^3/uL; Eosinophils% 0.5 % (0-5); Hematocrit 43.5 % (37-47); Hemoglobin 13.9 g/dL (12.0-15.0); Lymphocyte % 18.5 % (19-41); Mean Corpuscular Hgb 26.3 pg (27.0-32.0); Mean Corpuscular Volume 82.2 fL (81-99); Mean Platelet Vol. 9.7 fl (6.2-12.0); Monocyte% 6.5 % (0-10); NRBC Flagged by Analyzer 0 % (0-5); Neutrophil # 6.72 X10^3/uL (2.7-7.7); Neutrophil % 73.4 % (47-70); Platelet Count 294 K/mm3 (150-450); RBC Distribution Width CV 13.7 % (11.6-14.6); RBC Distribution Width SD 39.9 fl (35.1-43.9); Red Blood Count 5.29 M/mm3 (4.2-5.4); White Blood Count 9.2 K/mm3 (4.4-11.0)
[2019-05-09 17:30] LABS: Anion Gap 7 (5-15); BUN 9 mg/dL (7-18); BUN/Creat Ratio 10.8 RATIO (10-20); Calcium,Total 9.6 mg/dL (8.5-10.1); Chloride 100 mmol/L (98-107); Creatinine, Serum 0.83 mg/dL (0.55-1.02); EST Glomerular Filtration Rate 82 mL/min (>60); Est Glom Filt Rate - Afr Amer 100 mL/min (>60); Estimated Creatinine Clearance 94.52 ml/min; Glucose 119 mg/dL (74-106); Potassium 3.9 mmol/L (3.5-5.1); Sodium Level 136 mmol/L (136-145)
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
[2019-05-09 17:47] LABS: Internal QC Validated? YES +Cl - CLEAR BKGD; Pregnancy, Serum, hCG Quali. NEGATIVE Negative
[2019-05-09 18:04] VITALS: BP 119/71; BP 123/85; BP 132/88; PULSE 68; PULSE 75; PULSE 82
--- NOTE | 2019-05-09 18:05 | NURSING ---
NO PAIN RELIEF WITH NITRO, 2ND DOSE GIVEN.
[2019-05-09 18:12] LABS: Bacteria 0 SEEN /hpf (None Seen); Mucous, Urine 0 SEEN /hpf (<or=2+); Red Blood Cells-Urine 0 SEEN /hpf (0-5); Squamous Epithelial Cells - UA 0 SEEN /hpf (5-10); White Blood Cells 0 SEEN /hpf (0-5)
[2019-05-09 18:34] LABS: Color, Urine Straw (Yellow); Glucose, Dipstick Normal (Normal); Ketone-Dipstick Negative (Negative); Leukocyte Esterase-Dipstick Negative /ul (Negative); Nitrite-Dipstick Negative (Negative); Occult Blood-Urine Negative /ul (Negative); Protein-Dipstick 15 mg/dl (Negative); Urine Bilirubin Dipstick Negative (Negative); Urine Clarity Clear (Clear); Urine Urobilinogen Normal (Normal)
--- NOTE | 2019-05-09 18:43 | ED.RN ---
RN CALLED INTO PT ROOM. PT REPORTS THE WALL IS LIKE THE OCEAN LIKE A WATERFALL, DON'T YOU SEE THE WATER? RN INFORMED PT THAT THE WALL IS DRY. DR HODGE INFORMED.
[2019-05-09] MEDS: Meclizine HCl 25 MG Tablet PO (18:47)
[2019-05-09 19:39] VITALS: BP 126/82; PULSE 72; RESP 26; O2SAT 93
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
[2019-05-09 20:16] LABS: Bedside Glucose 129 mg/dL (70-110)
[2019-05-09 21:16] VITALS: BP 108/68; PULSE 69; RESP 21; O2SAT 96
[2019-05-09] MEDS: Metoclopramide 10 MG/2 ML Vial IV (22:25)
[2019-05-09] MEDS: DiphenhydrAMINE 50 MG/ML Syringe 25 MG IV (22:25)
[2019-05-09 22:26] VITALS: BP 119/72; PULSE 65; RESP 19; O2SAT 94
== END 2019-05-09 22:57 | disposition home or self-care (01) ==
PROVIDERS: Emergency Provider Emergency Medicine; Family Provider Family Medicine; PCP Family Medicine
DX: R51 Headache (principal); R42 Dizziness and giddiness; R07.9 Chest pain, unspecified; R06.00 Dyspnea, unspecified; R68.83 Chills (without fever); H53.8 Other visual disturbances; R00.2 Palpitations; R11.2 Nausea with vomiting, unspecified; R35.0 Frequency of micturition; M54.2 Cervicalgia; M54.9 Dorsalgia, unspecified; I11.0 Hypertensive heart disease with heart failure; I50.9 Heart failure, unspecified; J45.909 Unspecified asthma, uncomplicated; K21.9 Gastro-esophageal reflux disease without esophagitis; E11.9 Type 2 diabetes mellitus without complications; G40.909 Epilepsy, unspecified, not intractable, without status epilepticus; G47.30 Sleep apnea, unspecified; I47.1 Supraventricular tachycardia; F43.20 Adjustment disorder, unspecified; Z95.1 Presence of aortocoronary bypass graft; Z99.81 Dependence on supplemental oxygen; Z79.84 Long term (current) use of oral hypoglycemic drugs; Z79.899 Other long term (current) drug therapy
CPT/HCPCS: 70450; 71046; 80048; 81001; 82962; 84703; 85025; 93005; 96374; 96375; 99284; J7050; A4216

== ENCOUNTER 2019-06-24 09:53 | Emergency (ER) | payer MEDICARE, SELFPAY ==
[2019-06-24 08:50] VITALS: BMI 37.8
[2019-06-24 09:54] VITALS: BP 130/81; PULSE 93; RESP 16; TEMP 36.6; O2SAT 94; BMI 40.6
--- NOTE | 2019-06-24 10:07 | ED.VIS.GI ---
History of Present Illness Informant: Patient, Family - Abdominal Pain/Flank Pain Onset: Yesterday Context: Gradual Onset Timing: Continuous Quality: Cramping Location: Epigastric Current Severity: Mild Maximum Severity: Mild Worsened by: Food Relieved by: Remaining Still - Nausea/Vomiting/Emesis GI Symptom: Nausea, Vomiting Onset: Yesterday Quality: Blood streaks. Negative for: Coffee ground, Hematemesis Severity: Moderate - Diarrhea/Melena/Hematochezia GI Symptom: Diarrhea. Negative for: Melena, Hematochezia Onset: Yesterday Stool Quality: Loose, Watery. Negative for: Mucous, Black, Maroon, BRYAN per rectum Severity: Moderate Associated Symptoms: Negative for: Dysuria, Frequency, Hematuria, Urgency LMP: 1 month Narrative: 38-year-old female past medical history of type 2 diabetes mellitus presents to the emergency department with nausea vomiting and diarrhea that is been ongoing now for the last 12 hours. She was sent here from the urgent care. She has had 4-5 episodes of nonbloody emesis this morning. 2 episode of loose stool. She noticed a small amount of streaks of blood in her vomit. She has not had any hematemesis or coffee-ground emesis. Denies melena or hematochezia. She is having some mild abdominal cramping. No fevers. No recent travel. No recent antibiotic use. No sick contacts. No urinary symptoms. No chest pain or shortness of breath. She is not lightheaded or dizzy. She is not on blood thinners. 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 Smoking Status: Never smoker Alcohol: None Drugs: None - Family History Maternal Family History: Family History (Last Reviewed 06/24/19 @ 08:56 by Serena Denney) Mother Diabetes Kidney disease Sister Diabetes Liver disease Kidney disease, Onset Age: 41 Sister Diabetes Father Diabetes Hypertension Gangrene Family History: Reports: No pertinent history Paternal Family History: Family History (Last Reviewed 06/24/19 @ 08:56 by Serena Denney) Mother Diabetes Kidney disease Sister Diabetes Liver disease Kidney disease, Onset Age: 41 Sister Diabetes Father Diabetes Hypertension Gangrene Family History: Reports: No pertinent history <Curt Gillespie - Last Filed: 06/24/19 12:41> - Family History Maternal Family History: Family History (Last Reviewed 06/24/19 @ 08:56 by Serena Denney) Mother Diabetes Kidney disease Sister Diabetes Liver disease Kidney disease, Onset Age: 41 Sister Diabetes Father Diabetes Hypertension Gangrene Paternal Family History: Family History (Last Reviewed 06/24/19 @ 08:56 by Serena Denney) Mother Diabetes Kidney disease Sister Diabetes Liver disease Kidney disease, Onset Age: 41 Sister Diabetes Father Diabetes Hypertension Gangrene <Tristen Ames - Last Filed: 06/24/19 16:15> - Allergies and Home Meds Allergies/Adverse Reactions: Allergies nabumetone Allergy (Unknown, Verified 06/24/19 09:56) Unknown hydrocodone bitartrate [From [place]] Allergy (Verified 06/24/19 09:56) Itching Penicillins Allergy (Verified 06/24/19 09:56) Swelling amlodipine Adverse Reaction (Mild, Verified 06/24/19 09:56) Other can not tolerate higher doses Primary Care Physician: Asim Cohn DO [Primary Care Provider] - Review of Systems All systems negative except as indicated General: Denies: Chills, Fever Cardiovascular: Denies: Chest pain Respiratory: Denies: Dyspnea Gastrointestinal: Reports: Abdominal pain, Nausea, Vomiting, Diarrhea. Denies: Constipation, Melena, Hematochezia Genitourinary: Denies: Dysuria, Hematuria, Frequency Musculoskeletal: Denies: Back pain <Curt Gillespie - Last Filed: 06/24/19 12:41> Physical Exam Vital Signs/Narrative: Vital Signs Temp Pulse Resp BP Pulse Ox 06/24/19 09:54 98 F 93 16 130/81 H 94 Inital Vital Signs reviewed: Yes General: Well nourished, Well developed, No Acute Distress Head: Normocephalic, Atraumatic Eyes: Perrl, EOMI ENT: Moist mucous membranes Neck: Supple, Nontender Cardiovascular: Regular rate, Regular rhythm Respiratory: No distress, CTA bilaterally, Chest nontender Abdomen: Soft, Nontender, Nondistended, Normal bowel sounds, No masses Back: Nontender Extremities: Nontender, No edema Skin: Normal color, No rash Neurological: Alert, Oriented x3 Psychological: Normal affect <MayakanuYoelCurt - Last Filed: 06/24/19 12:41> Vital Signs/Narrative: Vital Signs Pulse Resp BP Pulse Ox 06/24/19 12:45 74 18 120/52 L 99 <Tristen Ames - Last Filed: 06/24/19 16:15> Diagnostic/Tx/Re-eval - Medical Decision Making Vital signs are stable. IV was established. Patient was given IV fluids. Patient was given a dose of Phenergan and Zofran. Laboratory work-up was unremarkable. Her blood counts are stable. She has had no vomiting during her emergency department stay. Her repeat abdominal exam is soft and nontender. Discussed with her at this time do not feel this is an acute upper GI bleed but likely small amount of streaks of blood from a Xochitl-Allen tear. We will discharge home with Phenergan and Zofran. She was advised to follow-up on Wednesday with her primary care or return to the emergency department. <Curt Gillespie - Last Filed: 06/24/19 12:41> - Medical Decision Making I performed a history and physical examination of the patient and discussed management plan with the physician corporate legal assistant. I reviewed the physician corporate legal assistant's note and agree with the documented findings and plan of care.patient presents with vomiting. She had blood in the vomit reportedly. This is most likely from a Xochitl-Allen tear. Clinically appears well her labs are negative. I do not feel she needs emergent EGD. To be treated with Phenergan and Zofran at home. Tristen Ames DO, MS, FACEP <Tristen Ames - Last Filed: 06/24/19 16:15> ED Disposition <Curt Gillespie - Last Filed: 06/24/19 12:41> <Tristen Ames - Last Filed: 06/24/19 16:15> - Plan for ED Patient: Disposition: Home or Assisted Living Diagnosis: Nausea vomiting and diarrhea Instructions: GASTROENTERITIS, Viral (8y-Adult) Prescriptions: proMETHazine tablet [Phenergan] 25 mg PO Q6H PRN PRN #10 tab PRN Reason: Nausea Ondansetron [Zofran Odt] 4 mg PO Q8H PRN PRN #10 tab PRN Reason: Nausea Prescription Printed Referrals: Asim Cohn DO [Primary Care Provider] -
[2019-06-24 10:21] LABS: Absolute Lymphocyte Count 1.57 X10^3/uL (0.83-4.51); Absolute Neutrophil Count 9.3 X10^3/uL (2.0-7.7); Basophil# 0.04 X10^3/uL; Basophil% 0.3 % (0-1); Eosinophil# 0.01 X10^3/uL; Eosinophils% 0.1 % (0-5); Hematocrit 48.4 % (37-47); Hemoglobin 15.7 g/dL (12.0-15.0); Lymphocyte # 1.57 X10^3/ul (4.0); Lymphocyte % 13.4 % (19-41); Mean Corp Hgb Conc 32.4 g/dL (32-36); Mean Corpuscular Hgb 27.1 pg (27.0-32.0); Mean Corpuscular Volume 83.4 fL (81-99); Mean Platelet Vol. 9.2 fl (6.2-12.0); NRBC Flagged by Analyzer 0 % (0-5); Neutrophil # 9.34 X10^3/uL (2.7-7.7); Neutrophil % 79.9 % (47-70); Platelet Count 340 K/mm3 (150-450); RBC Distribution Width CV 14.2 % (11.6-14.6); RBC Distribution Width SD 42.8 fl (35.1-43.9); White Blood Count 11.7 K/mm3 (4.4-11.0)
[2019-06-24] MEDS: 0.9% Normal Saline 1,000 ML 1000 ML IV (10:23)
[2019-06-24] MEDS: proMETHazine 25 MG/ML Syringe 12.5 MG IV (10:23)
[2019-06-24 10:40] LABS: ALB/GLOB Ratio 0.8 RATIO (0.9-2.4); AST(SGOT) 73 U/L (15-37); Alanine Aminotransfer ALT/SGPT 130 U/L (13-56); Albumin, Serum 4.1 g/dL (3.2-5.0); Alkaline Phosphatase 89 U/L (45-117); Anion Gap 7 (5-15); BUN 18 mg/dL (7-18); BUN/Creat Ratio 12.5 RATIO (10-20); Calcium,Total 8.9 mg/dL (8.5-10.1); Chloride 103 mmol/L (98-107); Creatinine, Serum 1.44 mg/dL (0.55-1.02); EST Glomerular Filtration Rate 44 mL/min (>60); Est Glom Filt Rate - Afr Amer 53 mL/min (>60); Estimated Creatinine Clearance 56.44 ml/min; Globulin 5.1 g/dL (2.2-4.2); Glucose 153 mg/dL (74-106); Lipase 273 U/L (73-393); Potassium 3.8 mmol/L (3.5-5.1); Protein, Total 9.2 g/dL (6.4-8.2); Sodium Level 136 mmol/L (136-145)
[2019-06-24 11:53] VITALS: BP 120/52; PULSE 72; RESP 16; O2SAT 98
[2019-06-24 11:58] LABS: Bacteria 0 SEEN /hpf (None Seen); Color, Urine Yellow (Yellow); Glucose, Dipstick Normal (Normal); Ketone-Dipstick 5 mg/dl (Negative); Leukocyte Esterase-Dipstick 500 /ul (Negative); Mucous, Urine 0 SEEN /hpf (<or=2+); Nitrite-Dipstick Negative (Negative); Occult Blood-Urine 25 /ul (Negative); Protein-Dipstick 100 mg/dl (Negative); Red Blood Cells-Urine 0 SEEN /hpf (0-5); Urine Clarity Cloudy (Clear); Urine Urobilinogen Normal (Normal); White Blood Cells 0 SEEN /hpf (0-5)
[2019-06-24 12:02] LABS: Urine Bilirubin Dipstick 1 mg/dL (Negative)
[2019-06-24 12:04] LABS: Squamous Epithelial Cells - UA > 100 SEEN /hpf (5-10)
[2019-06-24 12:05] LABS: Internal QC Validated? YES +Cl - CLEAR BKGD; Pregnancy, Urine Negative Negative
[2019-06-24] MEDS: Ondansetron 4 MG/2 ML Vial IV (12:13)
[2019-06-24 12:45] VITALS: BP 120/52; PULSE 74; RESP 18; O2SAT 99
== END 2019-06-24 12:49 | disposition home or self-care (01) ==
PROVIDERS: Emergency Provider Physician Assistant Medical; Family Provider Family Medicine; PCP Family Medicine
DX: R11.2 Nausea with vomiting, unspecified (principal); R19.7 Diarrhea, unspecified; R10.13 Epigastric pain; E11.9 Type 2 diabetes mellitus without complications; Z79.84 Long term (current) use of oral hypoglycemic drugs
CPT/HCPCS: 80053; 81001; 81025; 83690; 85025; 96361; 96374; 96375; 99283; J7030; A4216; J2405

== ENCOUNTER → 2019-07-07 07:56 | Outpatient (CLI) | payer MEDICARE, SELFPAY ==
[2019-06-24 09:54] VITALS: BMI 40.6
[2019-07-07 13:10] LABS: Anion Gap 7 (5-15); BUN 12 mg/dL (7-18); BUN/Creat Ratio 14.8 RATIO (10-20); Calcium,Total 8.9 mg/dL (8.5-10.1); Chloride 107 mmol/L (98-107); Creatinine, Serum 0.81 mg/dL (0.55-1.02); EST Glomerular Filtration Rate 85 mL/min (>60); Est Glom Filt Rate - Afr Amer 103 mL/min (>60); Glucose 180 mg/dL (74-106); Potassium 3.8 mmol/L (3.5-5.1); Sodium Level 139 mmol/L (136-145)
== END ==
PROVIDERS: Family Provider Family Medicine; PCP Family Medicine; Visit Provider Internal Medicine Endocrinology, Diabetes & Metabolism
DX: E11.65 Type 2 diabetes mellitus with hyperglycemia (principal)
CPT/HCPCS: 36415; 80048

== ENCOUNTER 2019-07-23 16:46 | Emergency (ER) | payer MEDICARE, SELFPAY ==
[2019-07-23 16:51] VITALS: BP 212/114; PULSE 117; RESP 18; TEMP 37.3; O2SAT 96; BMI 41.3
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
[2019-07-23 17:54] VITALS: BP 166/138; PULSE 107; RESP 15; O2SAT 99
[2019-07-23 18:00] VITALS: BP 169/112; PULSE 110; RESP 16; O2SAT 99
[2019-07-23] MEDS: LORazepam 1 MG Tablet PO (18:02)
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
[2019-07-23 19:27] VITALS: BP 152/103; PULSE 90; RESP 16; O2SAT 99
== END 2019-07-23 19:29 | disposition home or self-care (01) ==
LOC: ED 19:06
PROVIDERS: Emergency Provider Emergency Medicine; Family Provider Family Medicine; PCP Family Medicine
DX: S00.83XA Contusion of other part of head, initial encounter (principal); Y04.0XXA Assault by unarmed brawl or fight, initial encounter; Y93.9 Activity, unspecified; Y92.9 Unspecified place or not applicable; F41.9 Anxiety disorder, unspecified; J44.9 Chronic obstructive pulmonary disease, unspecified; Z79.899 Other long term (current) drug therapy; Z87.891 Personal history of nicotine dependence
CPT/HCPCS: 70450; 70486; 99283

== ENCOUNTER → 2019-07-25 10:36 | Outpatient (CLI) | payer MEDICARE, SELFPAY ==
[2019-07-25 10:10] VITALS: BMI 40.4
[2019-07-25 12:49] LABS: HIV - WCH Non-Reactive (Nonreactive)
[2019-07-26 15:39] LABS: HSV 1 IgG > 62.20 index (0.00-0.90); HSV 2 IgG < 0.91 index (0.00-0.90)
[2019-07-28 02:37] LABS: Rapid Plasmin Reagin (RPR) NONREACTIVE (NONREACTIVE)
== END ==
PROVIDERS: Family Provider Family Medicine; PCP Family Medicine; Referring Provider Nurse Practitioner Women's Health; Visit Provider Nurse Practitioner Women's Health
DX: A64 Unspecified sexually transmitted disease (principal)
CPT/HCPCS: 36415; 86592; 86695; 86696; 86703

== ENCOUNTER → 2019-07-25 12:34 | Outpatient (CLI) | payer MEDICARE, SELFPAY ==
[2019-07-25 12:34] VITALS: BMI 40.4
[2019-07-25 17:34] LABS: Chlamydia Trachomatis by PCR Negative (Negative); Neisserai gonorrhoeae by PCR Negative (Negative); Probe Check PASS; Sample Adequacy Control PASS; Specimen Processing Control PASS
== END ==
PROVIDERS: Family Provider Family Medicine; PCP Family Medicine; Referring Provider Nurse Practitioner Women's Health; Visit Provider Nurse Practitioner Women's Health
DX: A64 Unspecified sexually transmitted disease (principal)
CPT/HCPCS: 36415; 86592; 86695; 86696; 86703; 87491; 87591

== ENCOUNTER → 2019-07-31 10:48 | Outpatient (CLI) | payer MEDICARE, SELFPAY ==
[2019-05-22 10:16] VITALS: BMI 40.7
[2019-07-25 12:34] VITALS: BMI 40.4
[2019-07-31 11:42] VITALS: PULSE 114; PULSE 116; PULSE 118; PULSE 120; PULSE 121; PULSE 123; PULSE 124; O2SAT 87; O2SAT 88; O2SAT 89; O2SAT 90; O2SAT 95; O2SAT 98
--- NOTE | 2019-07-31 13:26 | PCM.PSN.6M ---
PSN 6 Minute Walk Test - 6 Minute Walk Test 6 Minute Walk Test: 6 Minute Walk Test PSN:6-Minute Walk Test Start: 07/31/19 11:42 Freq: Status: Active Protocol: [id number].[id number] Document 07/31/19 11:42 [facility] (Rec: 07/31/19 11:47 [facility] [id number]) 6 Minute Walk Test Date Performed 07/31/19 Time Performed 11:00 Height 5 ft 9 in Weight: 122.47 kg Weight in Pounds 270.[address]: Lorenzo Brown Assistive device used: None Pre-test Oxygen Delivery Method Room Air Pulse Ox (%) 95 Pulse Rate (60-100 beats/min) 114 H Dyspnea Kelly Scale (0-10) 2 1st minute Oxygen Delivery Method Room Air Pulse Ox (%) 87 Pulse Rate (60-100 beats/min) 116 H Dyspnea Kelly Scale (0-10) 3 Number of Rests Taken 0 Reported Symptoms Increased Work of Breathing 2nd minute Oxygen Flow Rate (L/min) (L/min) 1 Oxygen Delivery Method Nasal Cannula Pulse Ox (%) 89 Pulse Rate (60-100 beats/min) 120 H Dyspnea Kelly Scale (0-10) 3 Number of Rests Taken 0 Reported Symptoms Increased Work of Breathing 3rd minute Oxygen Flow Rate (L/min) (L/min) 1 Oxygen Delivery Method Nasal Cannula Pulse Ox (%) 88 Pulse Rate (60-100 beats/min) 124 H Dyspnea Kelly Scale (0-10) 3 Number of Rests Taken 0 Reported Symptoms Increased Work of Breathing 4th minute Oxygen Flow Rate (L/min) (L/min) 2 Oxygen Delivery Method Nasal Cannula Pulse Ox (%) 90 Pulse Rate (60-100 beats/min) 118 H Dyspnea Kelly Scale (0-10) 3 Number of Rests Taken 0 Reported Symptoms Increased Work of Breathing 5th minute Oxygen Flow Rate (L/min) (L/min) 2 Oxygen Delivery Method Nasal Cannula Pulse Ox (%) 89 Pulse Rate (60-100 beats/min) 121 H Dyspnea Kelly Scale (0-10) 3 Number of Rests Taken 0 Reported Symptoms Increased Work of Breathing 6th minute Oxygen Flow Rate (L/min) (L/min) 2 Oxygen Delivery Method Nasal Cannula Pulse Ox (%) 89 Pulse Rate (60-100 beats/min) 123 H Dyspnea Kelly Scale (0-10) 3 Number of Rests Taken 0 Reported Symptoms Increased Work of Breathing Post-test Oxygen Flow Rate (L/min) (L/min) 2 Oxygen Delivery Method Nasal Cannula Pulse Ox (%) 98 Pulse Rate (60-100 beats/min) 116 H Dyspnea Kelly Scale (0-10) 2 Full Laps Walked 15 Partial Lap, Number of Tiles Walked 37 Total Distance Walked (ft) 922 - Interpretation Interpretation: The patient was noted to be 95% on room air. However, desaturated to 87% in the first minute of ambulation. The patient did require a total of 2 L nasal cannula to maintain saturations. Patient was noted to be persistently tachycardic with a peak heart rate of 124 bpm. In total, patient did ambulate 922 feet over the course of 6 minutes with no assistive devices. These findings are consistent with a respiratory limitation exercise tolerance. - Recommendations Recommendations: Patient requires no supplemental oxygen at rest, but should be using 2 L nasal cannula with any exertion.
== END ==
PROVIDERS: Family Provider Family Medicine; PCP Family Medicine; Referring Provider Nurse Practitioner Acute Care; Visit Provider Nurse Practitioner Acute Care
DX: J96.11 Chronic respiratory failure with hypoxia (principal)
CPT/HCPCS: 94618

== ENCOUNTER → 2019-08-01 | Outpatient (CLI) | payer MEDICARE, SELFPAY ==
[2019-05-22 10:16] VITALS: BMI 40.7
[2019-07-25 12:34] VITALS: BMI 40.4
--- NOTE | 2019-08-01 15:27 | PFTCOMP_ITS ---
COMPLETE PULMONARY FUNCTION TEST INTERPRETATION Brief HPI: Patient is a 38 year old female, currently under the care of Flori Lee, who presents to [facility] for complete pulmonary function tests secondary to diagnosis of restrictive lung disease. Respiratory therapist reports good effort and reproducible results. Interpretation: Forced expiration spirometry shows no large airways obstructive ventilatory defect with an FEV1 of 30% predicted. There is no significant bronchodilator response by strict ATS criteria. Spirograms are of good quality and plateau normally. The respiratory flow volume loop shows decreased expiratory flow rates at high lung volumes consistent with small airways obstruction. Lung volumes by body plethysmography show a decreased total lung capacity at 2.43 L, 40% predicted. All other lung volumes are reduced symmetrically. Diffusion capacity by carbon monoxide is decreased at 41% predicted. The airway resistance is elevated. Compared to previous pulmonary function tests from 08/19/2018, there is been a significant decrease in total lung capacity by 16%. Impression: Severe restrictive ventilatory defect with a symmetric reduction diffusion capacity. There has been some worsening compared to 2018.
== END | disposition home or self-care (01) ==
LOC: PSN 10:01
PROVIDERS: Family Provider Family Medicine; PCP Family Medicine; Referring Provider Nurse Practitioner Acute Care; Visit Provider Nurse Practitioner Acute Care
DX: J45.909 Unspecified asthma, uncomplicated (principal)
CPT/HCPCS: 94060; 94726; 94729

== ENCOUNTER → 2019-10-20 09:42 | Outpatient (CLI) | payer MEDICARE, SELFPAY ==
[2019-08-08 11:05] VITALS: BMI 41.0
[2019-10-20 13:50] LABS: ALB/GLOB Ratio 0.7 RATIO (0.9-2.4); AST(SGOT) 35 U/L (15-37); Alanine Aminotransfer ALT/SGPT 59 U/L (13-56); Albumin, Serum 3.2 g/dL (3.2-5.0); Alkaline Phosphatase 85 U/L (45-117); Anion Gap 6 (5-15); BUN 10 mg/dL (7-18); BUN/Creat Ratio 12.9 RATIO (10-20); Calcium,Total 8.3 mg/dL (8.5-10.1); Chloride 102 mmol/L (98-107); Cholesterol 223 mg/dL (200); Creatinine, Serum 0.78 mg/dL (0.55-1.02); EST Glomerular Filtration Rate 89 mL/min (>60); Est Glom Filt Rate - Afr Amer 107 mL/min (>60); Globulin 4.3 g/dL (2.2-4.2); Glucose 126 mg/dL (74-106); High Density Lipoprotein 52 mg/dL; Potassium 3.8 mmol/L (3.5-5.1); Protein, Total 7.5 g/dL (6.4-8.2); Sodium Level 136 mmol/L (136-145); Thyroid Stim Hormone (TSH) 2.15 uIU/mL (0.358-3.74); Triglycerides 101 mg/dL; Very Low Density Lipoprotein 20 mg/dL (5-40)
[2019-10-20 14:13] LABS: Microalbumin:Creatinine Ratio 1339.7 mg/g CRE (<30 mg/g CRE)
== END ==
PROVIDERS: PCP Family Medicine; Visit Provider Internal Medicine Endocrinology, Diabetes & Metabolism
DX: E11.65 Type 2 diabetes mellitus with hyperglycemia (principal)
CPT/HCPCS: 36415; 80053; 80061; 82043; 82570; 83036; 84443

== ENCOUNTER → 2019-11-16 09:58 | Outpatient (CLI) | payer MEDICARE, MEDICAID, SELFPAY ==
[2019-08-08 11:05] VITALS: BMI 41.0
--- NOTE | 2019-11-17 09:38 | PFT ---
INTRODUCTION: The patient is a 39-year-old female that presents for pulmonary function studies secondary to a diagnosis of asthma. Respiratory therapy reports good patient effort. Bronchodilators were used during testing. INTERPRETATION: Forced expiration spirometry demonstrates no evidence of a severe large airways obstructive ventilatory defect, with a postbronchodilator FEV1 to FVC of 75%. There was a partial, albeit nonsignificant response to aerosolized bronchodilators. Spirograms are of fair quality and plateau gradually. Body plethysmography was performed and reveals a decreased TLC to 2.7 L, 46% of predicted, indicative of a severe restrictive ventilatory impairment. The remainder of the lung volumes are symmetrically reduced. Diffusing capacity by single breath CO is symmetrically reduced at 36% of predicted. When compared to previous pulmonary function studies from July 2019, there has been a 16% reduction in FEV1, 11% reduction in TLC and 15% reduction in DLCO. IMPRESSION: Severe restrictive ventilatory defect with symmetric reduction in diffusing capacity. There has been worsening in the patient's FEV1, total lung capacity and DLCO since PFTs were last completed in 2018.
== END ==
PROVIDERS: Family Provider Family Medicine; PCP Family Medicine; Referring Provider Nurse Practitioner Acute Care; Visit Provider Nurse Practitioner Acute Care
DX: J96.11 Chronic respiratory failure with hypoxia (principal)
CPT/HCPCS: 94060; 94726; 94729

== ENCOUNTER 2019-11-28 08:54 | Emergency (ER) | payer MEDICARE, MEDICAID, SELFPAY ==
[2019-11-28 08:01] VITALS: BMI 41.0
[2019-11-28 08:56] VITALS: BP 157/119; PULSE 111; RESP 25; TEMP 37.3; O2SAT 97; BMI 41.9
[2019-11-28 09:32] LABS: Absolute Lymphocyte Count 1.76 X10^3/uL (0.83-4.51); Absolute Neutrophil Count 8.9 X10^3/uL (2.0-7.7); Basophil# 0.04 X10^3/uL; Basophil% 0.3 % (0-1); Eosinophil# 0.07 X10^3/uL; Eosinophils% 0.6 % (0-5); Hematocrit 45.6 % (37-47); Hemoglobin 15.2 g/dL (12.0-15.0); Lymphocyte # 1.76 X10^3/ul (4.0); Lymphocyte % 15.2 % (19-41); Mean Corp Hgb Conc 33.3 g/dL (32-36); Mean Corpuscular Hgb 27.1 pg (27.0-32.0); Mean Corpuscular Volume 81.3 fL (81-99); Mean Platelet Vol. 9.5 fl (6.2-12.0); Monocyte# 0.77 X10^3/uL; Monocyte% 6.7 % (0-10); NRBC Flagged by Analyzer 0 % (0-5); Neutrophil # 8.87 X10^3/uL (2.7-7.7); Neutrophil % 76.9 % (47-70); Platelet Count 242 K/mm3 (150-450); RBC Distribution Width CV 13.3 % (11.6-14.6); RBC Distribution Width SD 38.8 fl (35.1-43.9); Red Blood Count 5.61 M/mm3 (4.2-5.4); White Blood Count 11.6 K/mm3 (4.4-11.0)
[2019-11-28] MEDS: Ipratropium/Albuterol Sulfate 3 ML AMPUL.NEB INHALATION (09:37)
[2019-11-28 09:38] VITALS: PULSE 98; RESP 24
--- NOTE | 2019-11-28 09:40 | RAD_ITS ---
EXAM DESCRIPTION: PA and lateral chest CLINICAL HISTORY: 39 years Female, DYSPNEA DYSPNEA COMPARISON: Previous portable chest obtained on 05/09/2019 FINDINGS: The thorax is intact. The heart and mediastinum appear to be within normal limits. The lungs appear to be well areated without evidence of pneumonic consolidation or pleural effusion. RAD/Chest PA and Lateral IMPRESSION: Normal PA and lateral chest Electronically Signed: Franklyn Membreno, at 10:32 EST Tel , Service support ,
[2019-11-28 09:49] LABS: Anion Gap 7 (5-15); BUN 9 mg/dL (7-18); BUN/Creat Ratio 10.3 RATIO (10-20); Calcium,Total 8.9 mg/dL (8.5-10.1); Chloride 105 mmol/L (98-107); Creatinine, Serum 0.87 mg/dL (0.55-1.02); EST Glomerular Filtration Rate 78 mL/min (>60); Est Glom Filt Rate - Afr Amer 94 mL/min (>60); Estimated Creatinine Clearance 89.31 ml/min; Glucose 106 mg/dL (74-106); Potassium 3.3 mmol/L (3.5-5.1); Sodium Level 140 mmol/L (136-145)
[2019-11-28 10:16] VITALS: BP 162/92; PULSE 100; PULSE 103; RESP 20; TEMP 36.6; O2SAT 97
[2019-11-28 10:19] VITALS: O2SAT 97
[2019-11-28] MEDS: 0.9% Normal Saline 1,000 ML 1000 ML IV (10:23)
[2019-11-28] MEDS: Ondansetron 4 MG/2 ML Vial IV (10:23)
--- NOTE | 2019-11-28 10:24 | EKG12_ITS ---
Test Reason : CP/SOB Blood Pressure : / mmHG Vent. Rate : 106 BPM Atrial Rate : 106 BPM P-R Int : 132 ms QRS Dur : 068 ms QT Int : 334 ms P-R-T Axes : 071 074 061 degrees QTc Int : 443 ms Sinus tachycardia with Premature atrial complexes Otherwise normal ECG Confirmed by SHARATH HARRIS ([id number]), makeup editor CHELI LOPEZ ([id number]) on 11/29/2019 2:59:26 PM Referred By: JAMES/ЮЛИЯ Confirmed By:SHARATH HARRIS
--- NOTE | 2019-11-28 10:42 | ED.DCSUM_ITS ---
- ER Visit Summary Date of Service: 11/28/19 Chief Complaint: [Cough] History of Present Illness: The patient is a 39 F [presents the emergency department complaint of a cough x5 days. Patient's been using uhvv-crm-fqfiiae Mucinex and Robitussin. Patient feels short of breath with activity and complains of wheezing. She did have a mild sore throat. She is had subjective fever at home with some sweats. Patient states that her son recently had influenza B. Patient has past medical history significant for CHF, asthma, diabetes, and seizure disorder. She denies recent travel or surgery. Patient had a scheduled appointment with her sleeping car service attendant today and our before her arrival in the emergency department but was instructed by visiting nurse at home to come to the emergency department.] Physical Examination: [HEENT-PERRLA, EOMI. Cranial nerves II through XII grossly intact. TMs clear. Mucous membranes moist. No adenopathy. Cardiovascular-regular rate and rhythm without murmur or ectopy Lungs-aeration bilaterally. She has some faint expiratory wheezes noted. No accessory muscle use or retractions. Abdomen-normoactive bowel sounds, soft, nontender, no rebound or rigidity, no peritoneal signs. Extremities-intact ?4, normal range of motion, normal pulses, atraumatic] Test Results: [CBC with differential obtained showed a slightly elevated white count of 11.6, hemoglobin 15, hematocrit 46, placed 242. Chemistries unremarkable other than a slightly depressed potassium of 3.3. Influenza screen was negative. Chest x-ray showed nothing acute.] Emergency Department Course and Treatment: He was given a DuoNeb aerosol. Patient started on prednisone 40 mg p.o. Patient given Zofran 4 mg IV for nausea. [] Treatment Plan: [Case was discussed with patient's nurse practitioner who works with Dr. Brown the sleeping car service attendant. I will have patient follow-up with our office within the next 2 to 3 days. Patient will be given a prescription for prednisone as well as Tessalon Perles. Patient given a prescription for Phenergan. I suspect likely viral etiology.] Disposition: [Discharged home in stable condition] Impression: [Viral URI] This note was generated with Diagnov[employer] software. It may contain incorrect words, spelling, and punctuation that were not noted in review of the chart prior to signing ED Disposition - Plan for ED Patient: Referrals: Asim Cohn [Primary Care Provider] -
--- NOTE | 2019-11-28 10:49 | ED.DEP ---
ED Disposition - Plan for ED Patient: Instructions: BRONCHITIS, No Antibiotic (Adult) Prescriptions: Prednisone [Deltasone] 20 mg PO BID #10 tab Prescription Printed proMETHazine tablet [Phenergan] 25 mg PO Q6H PRN PRN #10 tab PRN Reason: Nausea Prescription Printed Benzonatate [Tessalon Perle] 200 mg PO TID PRN PRN #20 cap PRN Reason: Cough Prescription Printed Referrals: Asim Cohn [Primary Care Provider] - Lorenzo Brown MD [STAFF PHYSICIAN] - 3-5 Days
--- NOTE | 2019-11-28 10:53 | ED.DEP ---
ED Disposition - Plan for ED Patient: Instructions: BRONCHITIS, No Antibiotic (Adult) Prescriptions: Prednisone [Deltasone] 20 mg PO BID #10 tab Prescription Printed Ipratropium/Albuterol Sulfate [Duoneb] 3 ml INHALATION Q4H.RT #25 ampul.neb Prescription Printed proMETHazine tablet [Phenergan] 25 mg PO Q6H PRN PRN #10 tab PRN Reason: Nausea Prescription Printed Benzonatate [Tessalon Perle] 200 mg PO TID PRN PRN #20 cap PRN Reason: Cough Prescription Printed Referrals: Lorenzo Brown MD [STAFF PHYSICIAN] - 3-5 Days Asim Cohn [Primary Care Provider] -
[2019-11-28] MEDS: predniSONE 20 MG Tablet 40 MG PO (11:40)
[2019-11-28 11:45] VITALS: BP 139/84; PULSE 100; RESP 19; O2SAT 97
[2019-11-28 11:46] LABS: Bedside Glucose 94 mg/dL (70-110)
--- NOTE | 2019-11-28 11:46 | ED.RN ---
IV DC'ED, CATHETER INTACT, SMALL GAUZE DRESSING PLACED. DISCHARGE INSTRUCTIONS GIVEN TO AND REVIEWED WITH PATIENT, PATIENT DENIES QUESTIONS OR CONCERNS AND VOICES UNDERSTANDING OF DISCHARGE INSTRUCTIONS. PT AMBULATES OUT OF ROOM WITHOUT DIFFICULTY.
== END 2019-11-28 11:47 | disposition home or self-care (01) ==
LOC: ED 10:27
PROVIDERS: Emergency Provider Emergency Medicine; PCP Family Medicine
DX: J06.9 Acute upper respiratory infection, unspecified (principal); R11.0 Nausea; E11.9 Type 2 diabetes mellitus without complications; I50.9 Heart failure, unspecified; J45.909 Unspecified asthma, uncomplicated; G40.909 Epilepsy, unspecified, not intractable, without status epilepticus; Z79.84 Long term (current) use of oral hypoglycemic drugs; Z79.899 Other long term (current) drug therapy
CPT/HCPCS: 71046; 80048; 82962; 85025; 87804; 93005; 94640; 99284; J7030; A4216; J2405

== ENCOUNTER 2019-11-28 18:06 | Emergency (ER) | payer MEDICARE, MEDICAID, SELFPAY ==
[2019-11-28 08:56] VITALS: BMI 41.9
[2019-11-28 18:09] VITALS: BP 163/88; PULSE 126; RESP 18; TEMP 36.6; O2SAT 98; BMI 44.4
--- NOTE | 2019-11-28 18:24 | CT_ITS ---
STUDY: CT BRAIN WITHOUT CONTRAST REASON FOR EXAM: Female, 39 years old. Confusion, cough, dizzy and off balance today RADIATION DOSAGE (If Supplied By Facility): CTDIvol = ( 44.99 ) mGy, DLP = ( 762.36 ) mGycm TECHNIQUE: Transaxial CT imaging of the brain was performed without administration of intravenous contrast material. Individualized dose optimization techniques were used for this CT. COMPARISON: 07/23/2019 FINDINGS: Normal soft tissue structures. Normal calvarium. Normal size ventricles and extra-axial spaces for the patient''s age. Normal white matter tracts of the cerebral hemispheres. Normal basal ganglia and thalami. Normal brainstem. Normal cerebellum. There is no intracranial hemorrhage. There are no findings of an acute ischemic infarction. Normal visualized paranasal sinuses. CT/Brain/Head without Contrast IMPRESSION: Normal unenhanced CT scan of the brain. Electronically Signed: Dwight Ross MD at 19:26 EST , Service support ,
--- NOTE | 2019-11-28 18:25 | EKG12_ITS ---
Test Reason : CONFUSION Blood Pressure : / mmHG Vent. Rate : 112 BPM Atrial Rate : 112 BPM P-R Int : 156 ms QRS Dur : 070 ms QT Int : 334 ms P-R-T Axes : 070 068 057 degrees QTc Int : 455 ms Sinus tachycardia Biatrial enlargement Abnormal ECG Confirmed by SHARATH HARRIS ([id number]), commissioning editor CHELI LOPEZ ([id number]) on 11/29/2019 2:59:39 PM Referred By: REBECA Confirmed By:SHARATH HARRIS
[2019-11-28] MEDS: 0.9% Normal Saline 1,000 ML 1000 ML IV (18:47)
[2019-11-28] MEDS: Acetaminophen 500 MG Tablet 1000 MG PO (18:47)
[2019-11-28] MEDS: Ondansetron 4 MG/2 ML Vial IV (18:47)
[2019-11-28 18:49] VITALS: BP 145/87; PULSE 113; RESP 20; O2SAT 98
[2019-11-28 18:50] VITALS: BP 131/76; BP 145/87; BP 146/86; PULSE 105; PULSE 113; PULSE 121
[2019-11-28 18:50] LABS: D-Dimer Quantitative (DVT/PE) 0.43 FEU/ug/m (0.27-0.49)
--- NOTE | 2019-11-28 19:38 | ED.DCSUM_ITS ---
- ER Visit Summary Date of Service: 11/28/19 Chief Complaint: Lightheaded and syncope History of Present Illness: The patient is a [address] Brown, Dr. Cohn, and Dr. Beasley. She was in the emergency department earlier today and was given Phenergan. She reports I keep falling asleep. States when she gets up to walk she is lightheaded and dizzy. She does report that she had a syncopal episode. She denies any injuries. She denies any neck, back, shoulder, wrist, or hip pain. Patient reports that she is had a cough for the past 5 days is productive yellow sputum without blood. She has chest pain with breathing in that is 7 out of 10 in severity. She has mild shortness of breath. She reports she has been nauseated and vomited twice. She is also had 2 episodes of diarrhea. There is been no blood in either. She also complains of generalized weakness. Physical Examination: Vitals: Stable. Afebrile. General: Well-nourished and well-developed. Head: Normocephalic atraumatic. Neck: Supple, no lymphadenopathy. No JVD. Nontender. Cardiovascular: Regular rate and rhythm. No murmurs. Respiratory: No respiratory distress. Clear to auscultation bilaterally. Abdominal: Soft, nontender, nondistended, normal bowel sounds. No guarding, rebound, or peritoneal signs. Back: Nontender. Extremities: Nontender, no edema. Skin: Normal color, no rash. Neurologic: Alert and oriented ?3. Cranial nerves II through XII are intact. Normal strength and sensation. Psych: Depressed affect. Test Results: Patient had blood work undertaken earlier today. This was not repeated she did not have a troponin earlier that was performed it is negative. She had a d-dimer that was negative. She had an EKG is sinus tach at 112 that is unchanged from earlier today. She had a CT the brain that is normal. Emergency Department Course and Treatment: Patient had an IV placed. She had negative orthostatic vital signs. She was given a liter normal saline. Her heart rate is decreased into the low 90s. She is resting comfortably. Treatment Plan: Had a prolonged scratch the patient that some of her symptoms could be from the Phenergan. I suggested that she not use this any longer. She is instructed to begin Zofran, push fluids, use Tylenol and/ibuprofen for myalgias and pain. Follow-up with her primary care physician in 1 week if not improving. Disposition: To home in improved and stable condition. Impression: 1. Syncope. 2. URI. 3. Vomiting/diarrhea. This note was generated with docplanner dictation software. It may contain incorrect words, spelling, and punctuation that were not noted in review of the chart prior to signing ED Disposition - Plan for ED Patient: Disposition: Home or Assisted Living Instructions: URI, Viral, No Abx (Adult) Prescriptions: Ondansetron [Zofran Odt] 4 mg PO Q8H PRN PRN #10 tab PRN Reason: Nausea Prescription Printed Referrals: Asim Cohn [Primary Care Provider] - 3-5 Days if not improving
[2019-11-28 20:07] VITALS: BP 148/86; PULSE 78; RESP 18; O2SAT 98
== END 2019-11-28 20:17 | disposition home or self-care (01) ==
LOC: ED 18:28
PROVIDERS: Emergency Provider Emergency Medicine; PCP Family Medicine
DX: R55 Syncope and collapse (principal); J06.9 Acute upper respiratory infection, unspecified; R11.2 Nausea with vomiting, unspecified; R19.7 Diarrhea, unspecified; I11.0 Hypertensive heart disease with heart failure; I50.9 Heart failure, unspecified; E11.9 Type 2 diabetes mellitus without complications; R07.1 Chest pain on breathing; R51 Headache; R10.9 Unspecified abdominal pain; J45.909 Unspecified asthma, uncomplicated; G40.909 Epilepsy, unspecified, not intractable, without status epilepticus; Z79.84 Long term (current) use of oral hypoglycemic drugs; Z79.899 Other long term (current) drug therapy
CPT/HCPCS: 70450; 71046; 80048; 82962; 84484; 85025; 85379; 87804; 93005; 94640; 96361; 96374; 96375; 99284; 99285; J7030; A4216; J2405

== ENCOUNTER 2020-01-22 16:12 | Emergency (ER) | payer MEDICARE, MEDICAID, SELFPAY ==
[2020-01-22 16:14] VITALS: BP 158/80; PULSE 112; RESP 17; TEMP 36.9; O2SAT 95; BMI 40.3
--- NOTE | 2020-01-22 16:45 | ED.DCSUM_ITS ---
History of Present Illness Chief Complaint: Rash Informant: Patient Narrative: Patient presents with a rash, this is been ongoing for about a week, she has tried some mhci-uhk-bpjruoz hydrocortisone cream. It is itchy. She does not recall any offending agents no new foods, no new detergents close etc. She has no respiratory difficulties, she has no chest pain she does not feel her throat closing up, she has no other symptoms. Past Medical History - Allergies and Home Meds Allergies/Adverse Reactions: Allergies nabumetone Allergy (Unknown, Verified 01/22/20 16:13) Unknown hydrocodone bitartrate [From [place]] Allergy (Verified 01/22/20 16:13) Itching Penicillins Allergy (Verified 01/22/20 16:13) Swelling amlodipine Adverse Reaction (Mild, Verified 01/22/20 16:13) Other can not tolerate higher doses Primary Care Physician: Asim Cohn [Primary Care Provider] - Past Medical History: - - Patient has multiple medical problems including home oxygen, diabetes, these were reviewed. 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 Smoking Status: Never smoker - Family History Maternal Family History: Family History (Last Reviewed 12/01/19 @ 11:11 by OSMANY Lux) Mother Diabetes Kidney disease Sister Diabetes Liver disease Kidney disease, Onset Age: 41 Sister Diabetes Father Diabetes Hypertension Gangrene Family History: Reports: No pertinent history Paternal Family History: Family History (Last Reviewed 12/01/19 @ 11:11 by OSMANY Lux) Mother Diabetes Kidney disease Sister Diabetes Liver disease Kidney disease, Onset Age: 41 Sister Diabetes Father Diabetes Hypertension Gangrene Family History: Reports: No pertinent history Review of Systems All systems negative except as indicated General: Denies: Fever ENT: Denies: Sore throat Cardiovascular: Denies: Chest pain Respiratory: Denies: Dyspnea, Cough Gastrointestinal: Denies: Abdominal pain, Nausea Musculoskeletal: Denies: Myalgias Skin: Reports: Rash Neurological: Denies: Headache, Weakness Hematologic: Denies: Easy bruising Physical Exam Vital Signs/Narrative: Vital Signs Temp Pulse Resp BP Pulse Ox 01/22/20 16:14 98.5 F 112 H 17 158/80 H 95 General: Well nourished, Well developed Eyes: Perrl ENT: Moist mucous membranes, No rhinorrhea Neck: Supple Cardiovascular: Regular rate, Regular rhythm Respiratory: No distress, - - Somewhat decreased bibasilar breath sounds, she is speaking in full sentences with no distress Abdomen: Soft, Nontender Back: Nontender, Normal Inspection, - - Rash as described below Extremities: No edema Skin: - - Patient has a confluent blanching erythematous rash that is quite itching. There is no calor present no signs of superinfection. Psychological: Normal affect Diagnostic/Tx/Re-eval - Medical Decision Making Patient will be treated with steroids, she has been on steroids before infection has insulin just for those occasions. Otherwise I will treat with Vistaril also and I will discharge in stable condition. ED Disposition - Plan for ED Patient: Disposition: Home or Assisted Living Diagnosis: Allergic dermatitis Instructions: ED General Allergic Reactions Prescriptions: Prednisone [Deltasone] 40 mg PO DAILY #8 tab Prescription Printed hydrOXYzine pamoate capsule [Vistaril] 50 mg PO TID PRN PRN #30 cap PRN Reason: Anxiety Prescription Printed Referrals: Asim Cohn [Primary Care Provider] - 3-5 Days
[2020-01-22] MEDS: predniSONE 20 MG Tablet 40 MG PO (17:06)
[2020-01-22] MEDS: hydrOXYzine PAM 25 MG Capsule 50 MG PO (17:06)
[2020-01-22 17:42] VITALS: BP 145/78; PULSE 87; RESP 19; O2SAT 96
== END 2020-01-22 17:42 | disposition home or self-care (01) ==
PROVIDERS: Emergency Provider Emergency Medicine; PCP Family Medicine
DX: L23.9 Allergic contact dermatitis, unspecified cause (principal); Z79.84 Long term (current) use of oral hypoglycemic drugs; Z79.52 Long term (current) use of systemic steroids; Z79.899 Other long term (current) drug therapy; Z88.5 Allergy status to narcotic agent; Z88.0 Allergy status to penicillin; Z88.8 Allergy status to other drugs, medicaments and biological substances
CPT/HCPCS: 99283

== ENCOUNTER 2020-02-14 07:36 | Emergency (ER) | payer MEDICARE, MEDICAID, SELFPAY ==
[2020-02-14 07:37] VITALS: BP 178/107; PULSE 92; RESP 18; TEMP 37.1; O2SAT 94; BMI 39.8
--- NOTE | 2020-02-14 08:01 | ED.DCSUM_ITS ---
- ER Visit Summary Date of Service: 02/14/20 Chief Complaint: Rash with itching History of Present Illness: The patient is a 39 F history of insulin-dependent diabetes, hypertension, migraine headaches, sleep apnea and prior heart surgery. Patient states the last 4 weeks she has had a rash. She has been treated with steroids with really limited to no improvement. She is concerned she may have scabies. She states it does itch quite a bit. She denies any fever or chills. She denies any nausea, vomiting or diarrhea. Physical Examination: Well-appearing female no acute distress vital signs stable afebrile. She does not look septic or toxic. HEENT exam unremarkable. Moist w ith membranes. Neck nontender. No lymphadenopathy. Lungs clear to auscultation bilaterally. Heart regular rhythm no murmur. Abdomen soft nontender. Extremities moves all 4. Skin normal color and skin different areas of rashes. The rash is not as impressive as excoriations from her scratching. There is no secondary cellulitis. There is no bruising. There is no petechiae or purpura. There is no vesicles or pustules. Test Results: None Emergency Department Course and Treatment: Patient is very concerned that she has scabies. I explained to her that clinically this is not a classic scabies type of rash. It does involve her hands but there is not furrowing. Patient also had a nurse of hers call and requested that she be treated for scabies. I am happy to oblige them but explained to them I am not sure this will greatly improve her rash if it is not scabies that it will not. Treatment Plan: Permethrin cream. Follow-up with a country director. Disposition: Discharge Impression: Acute rash of uncertain etiology Rule out Possible scabies This note was generated with [employer] dictation software. It may contain incorrect words, spelling, and punctuation that were not noted in review of the chart prior to signing ED Disposition - Plan for ED Patient: Referrals: Asim Cohn [Primary Care Provider] -
--- NOTE | 2020-02-14 08:05 | ED.DEP ---
ED Disposition - Plan for ED Patient: Disposition: Home or Assisted Living Instructions: ED Scabies Prescriptions: Permethrin 5% [Permethrin] 60 gm TOPICAL QHS PRN PRN #1 cream..g. PRN Reason: Rash/Topical Irritation Prescription Printed Referrals: Asim Cohn [Primary Care Provider] - 1 Week if not improving Jennifer Ontiveros MD [NON-STAFF] - As soon as possible Additional Instructions: You have a rash of uncertain etiology. We will treat you for possible scabies but are not sure that that is what this is. Is not a classic presentation of a scabies rash. Follow-up with a local motorcycle repairer as soon as possible.
== END 2020-02-14 08:27 | disposition home or self-care (01) ==
LOC: ED 08:15
PROVIDERS: Emergency Provider Emergency Medicine; PCP Family Medicine
DX: R21 Rash and other nonspecific skin eruption (principal); E11.9 Type 2 diabetes mellitus without complications; I10 Essential (primary) hypertension; G43.909 Migraine, unspecified, not intractable, without status migrainosus; G47.30 Sleep apnea, unspecified; Z79.4 Long term (current) use of insulin; Z79.899 Other long term (current) drug therapy
CPT/HCPCS: 99282

== ENCOUNTER → 2020-08-15 11:04 | Outpatient (CLI) | payer MEDICARE, MEDICAID, SELFPAY ==
[2020-03-25 10:39] VITALS: BMI 39.7
[2020-08-15 11:15] VITALS: PULSE 101; PULSE 109; PULSE 112; PULSE 91; PULSE 95; PULSE 98; PULSE 99; O2SAT 2; O2SAT 90; O2SAT 91; O2SAT 93; O2SAT 94; O2SAT 96
--- NOTE | 2020-08-15 11:46 | CPS ---
Pt was placed back on O2 2lpm at the 2 1/2 min time tucker for a desaturation of 87%. Pt recovered to 94% on 2lpm and finished remainder of walk on 2lpm
--- NOTE | 2020-08-15 17:47 | PCM.PSN.6M ---
PSN 6 Minute Walk Test - 6 Minute Walk Test 6 Minute Walk Test: 6 Minute Walk Test PSN:6-Minute Walk Test Start: 08/15/20 11:41 Freq: Status: Active Protocol: [id number] Document 08/15/20 11:15 [facility] (Rec: 08/15/20 11:49 [facility] [id number]) 6 Minute Walk Test Date Performed 08/15/20 Time Performed 11:15 Height 5 ft 9 in Weight: 120.202 kg Weight in Pounds 265.[address]: Arlene Assistive device used: None Pre-test Oxygen Delivery Method Room Air Pulse Ox (%) 94 Pulse Rate (60-100 beats/min) 95 Dyspnea Kelly Scale (0-10) 0 Exertion Kelly Scale (6-20) 6 1st minute Oxygen Delivery Method Room Air Pulse Ox (%) 91 Pulse Rate (60-100 beats/min) 109 H 2nd minute Oxygen Delivery Method Room Air Pulse Ox (%) 90 Pulse Rate (60-100 beats/min) 112 H Dyspnea Kelly Scale (0-10) 3 Exertion Kelly Scale (6-20) 11 3rd minute Oxygen Flow Rate (L/min) (L/min) 2 Oxygen Delivery Method Nasal Cannula Pulse Ox (%) 94 Pulse Rate (60-100 beats/min) 101 H 4th minute Oxygen Flow Rate (L/min) (L/min) 2 Oxygen Delivery Method Nasal Cannula Pulse Ox (%) 93 Pulse Rate (60-100 beats/min) 99 5th minute Oxygen Flow Rate (L/min) (L/min) 2 Oxygen Delivery Method Nasal Cannula Pulse Ox (%) 2 Pulse Rate (60-100 beats/min) 91 Dyspnea Kelly Scale (0-10) 104 6th minute Oxygen Flow Rate (L/min) (L/min) 2 Oxygen Delivery Method Nasal Cannula Pulse Ox (%) 91 Pulse Rate (60-100 beats/min) 101 H Dyspnea Kelly Scale (0-10) 2 Exertion Kelly Scale (6-20) 11 Post-test Oxygen Flow Rate (L/min) (L/min) 2 Oxygen Delivery Method Nasal Cannula Pulse Ox (%) 96 Pulse Rate (60-100 beats/min) 98 Full Laps Walked 13 Partial Lap, Number of Tiles Walked 14 Total Distance Walked (ft) 781 08/15/20 11:46 Cardiopulmonary Services by Mirella Gomez Pt was placed back on O2 2lpm at the 2 1/2 min time tucker for a desaturation of 87%. Pt recovered to 94% on 2lpm and finished remainder of walk on 2lpm Initialized on 08/15/20 11:46 - END OF NOTE - Interpretation Interpretation: The patient was noted to be 94% on room air at rest. The patient did desaturate at 2-1/2 minutes to 87% was placed on 2 L nasal cannula. The patient was then able to complete her walk with an oxygen shayne of 91% and a peak heart rate of 104 bpm. In total, the patient traveled 781 feet over the course of 6 minutes. These findings are consistent with a respiratory limitation exercise tolerance. - Recommendations Recommendations: No supplemental oxygen is indicated at rest, but patient should be using 2 L nasal cannula with any exertion.
== END ==
PROVIDERS: PCP Family Medicine; Referring Provider Nurse Practitioner Acute Care; Visit Provider Nurse Practitioner Acute Care
DX: J96.10 Chronic respiratory failure, unspecified whether with hypoxia or hypercapnia (principal)
CPT/HCPCS: 94618

== ENCOUNTER → 2020-10-10 10:41 | Outpatient (CLI) | payer MEDICARE, MEDICAID, SELFPAY ==
[2020-03-25 10:39] VITALS: BMI 39.7
--- NOTE | 2020-10-10 17:02 | PFTCOMP_ITS ---
COMPLETE PULMONARY FUNCTION TEST INTERPRETATION Brief HPI: Patient is a 39 year old female, currently under the care of myself, who presents to [facility] for complete pulmonary function tests secondary to diagnosis of chronic respiratory failure. Respiratory therapist reports good effort and reproducible results. Interpretation: Forced expiration spirometry shows no large airways obstructive ventilatory defect with an FEV1 of 31% predicted. There is no significant bronchodilator response by strict ATS criteria. Spirograms are of good quality and plateau slowly, indicating slowly emptying areas of the lungs. The respiratory flow volume loop shows decreased expiratory flow rates at high lung volumes consistent with small airways obstruction. Lung volumes by body plethysmography show a decreased total lung capacity at 2.29 L, 36% predicted. All other lung volumes are reduced symmetrically. Diffusion capacity by carbon monoxide is decreased at 46% predicted. The airway resistance is elevated. Compared to previous pulmonary function tests from 11/16/2019, there is been a significant reduction in total lung capacity by 15%, but improvement in DLCO by 26%. Impression: Severe restrictive ventilatory defect with a symmetric reduction diffusion capacity.
== END ==
PROVIDERS: PCP Family Medicine; Referring Provider Nurse Practitioner Acute Care; Visit Provider Nurse Practitioner Acute Care
DX: J96.10 Chronic respiratory failure, unspecified whether with hypoxia or hypercapnia (principal)
CPT/HCPCS: 94060; 94726; 94729

== ENCOUNTER 2020-10-29 13:01 | Emergency (ER) | payer MEDICARE, SELFPAY ==
[2020-10-15 10:15] VITALS: BMI 39.5
[2020-10-29] VITALS (7 sets, daily range): BP systolic 151–204; BP diastolic 91–116; PULSE 105–114; RESP 20–30; TEMP 38.1–38.2; O2SAT 96–100; BMI 38.6
--- NOTE | 2020-10-29 13:21 | EKG12_ITS ---
Test Reason : SOB Blood Pressure : / mmHG Vent. Rate : 109 BPM Atrial Rate : 109 BPM P-R Int : 154 ms QRS Dur : 062 ms QT Int : 300 ms P-R-T Axes : 015 077 047 degrees QTc Int : 404 ms Sinus tachycardia with Premature atrial complexes Otherwise normal ECG Confirmed by YULISSA DIAZ, DARLYN ([id number]), restaurant expeditor CHELI LOPEZ ([id number]) on 10/30/2020 10:44:17 AM Referred By: TRACEY Confirmed By:DARLYN DUENAS MD
--- NOTE | 2020-10-29 13:25 | ED.VISSUMM ---
- ER Visit Summary Date of Service: 10/29/20 Chief Complaint: Fever History of Present Illness: The patient is a 39 F presenting with fever, sore throat, shortness of breath. She states the symptoms started early this morning. She called her doctor and they advised her to come to the ED. She had a temperature up to 102 at home. She took Tylenol just prior to arrival. She complains of shortness of breath which is worsened with exertion. She has needed to increase her home O2. She has nausea and diarrhea. She complains of mild headache. Her sister recently of Covid in September. Her sister was hospitalized for over a month so the patient has not been recently exposed. Physical Examination: Vitals are stable. Temperature 100.8, heart rate 114, respiratory rate 24, pulse ox 96% on 4 L HEENT exam pharyngeal erythema with no exudate. Uvula midline Neck is supple. No meningismus Lungs are diminished bilaterally. Heart is regular tachycardic Abdomen is soft nontender nondistended. Extremities are unremarkable. Skin is warm and dry. No focal neurologic deficit. Remainder of exam is unremarkable. Emergency Department Course and Treatment: Patient was given IV fluids. EKG is sinus tachycardia rate of 109. CBC shows white count 14.6. Chemistries unremarkable. Troponin negative. Lactic acid normal. Covid negative. Influenza negative. Rapid strep positive. Chest x-ray shows stable elevation of the left hemidiaphragm with mild increased markings at the left lung base. Patient is able to ambulate with oxygen at her normal baseline. She states her main complaint is her sore throat and her shortness of breath is not worsened than her typical shortness of breath. She was given Decadron for pharyngitis and Zithromax due to penicillin allergy. She is given Tylenol for her fever. She is comfortable with discharge home. She is advised to follow up with her primary care physician. Advised return to ED for worsening complaints. Disposition: Discharge home Impression: Strep pharyngitis This note was generated with Verican dictation software. It may contain incorrect words, spelling, and punctuation that were not noted in review of the chart prior to signing ED Disposition - Plan for ED Patient: Instructions: ED Pharyngitis, Strep (Confirmed) Prescriptions: Azithromycin [Zithromax Z-Darian] 250 mg PO UD #1 box Prescription Printed Referrals: Asim Cohn [Primary Care Provider] -
[2020-10-29 13:50] LABS: Absolute Lymphocyte Count 1.69 X10^3/uL (0.83-4.51); Absolute Neutrophil Count 11.5 X10^3/uL (2.0-7.7); Basophil# 0.03 X10^3/uL; Basophil% 0.2 % (0-1); Eosinophil# 0.13 X10^3/uL; Eosinophils% 0.9 % (0-5); Hematocrit 41.8 % (37-47); Hemoglobin 13.9 g/dL (12.0-15.0); Lymphocyte # 1.69 X10^3/ul (4.0); Lymphocyte % 11.6 % (19-41); Mean Corp Hgb Conc 33.3 g/dL (32-36); Mean Corpuscular Hgb 27.3 pg (27.0-32.0); Mean Platelet Vol. 9.5 fl (6.2-12.0); Monocyte# 1.19 X10^3/uL; Monocyte% 8.2 % (0-10); NRBC Flagged by Analyzer 0 % (0-5); Neutrophil # 11.47 X10^3/uL (2.7-7.7); Neutrophil % 78.7 % (47-70); Platelet Count 184 K/mm3 (150-450); RBC Distribution Width CV 13.3 % (11.6-14.6); RBC Distribution Width SD 40.2 fl (35.1-43.9); White Blood Count 14.6 K/mm3 (4.4-11.0)
[2020-10-29] MEDS: 0.9% Normal Saline 1,000 ML 1000 ML IV (13:51)
--- NOTE | 2020-10-29 14:00 | RAD_ITS ---
STUDY: X-RAY CHEST REASON FOR EXAM: Female, 39 years old. Cough, fever TECHNIQUE: Single AP portable view of the chest. COMPARISON: Comparison is made with prior study dated 11/28/2019. FINDINGS: EKG electrodes are seen. Stable elevation of the left hemidiaphragm. Minimal increased markings at the left lung base suggestive of atelectasis. There is no demonstrated pleural abnormality. Normal size heart. Normal mediastinum and cherelle. Normal visualized pulmonary arteries. Normal visualized aortic arch and descending thoracic aorta. Normal visualized thoracic spine. Normal visualized ribs, clavicles, and shoulders. There is no demonstrated abnormality of the visualized soft tissue structures of the upper abdomen. RAD/Chest 1 View (Portable) IMPRESSION: Stable elevation of the left hemidiaphragm with mild increased markings at the left lung base. Electronically Signed: Mil Spain MD at 14:13 EST , Service support ,
[2020-10-29 14:09] LABS: ALB/GLOB Ratio 0.7 RATIO (0.9-2.4); AST(SGOT) 28 U/L (15-37); Alanine Aminotransfer ALT/SGPT 53 U/L (13-56); Albumin, Serum 3.1 g/dL (3.2-5.0); Alkaline Phosphatase 74 U/L (45-117); Anion Gap 6 (5-15); BUN 8 mg/dL (7-18); BUN/Creat Ratio 10.3 RATIO (10-20); Calcium,Total 8.5 mg/dL (8.5-10.1); Chloride 105 mmol/L (98-107); Creatinine, Serum 0.78 mg/dL (0.55-1.02); EST Glomerular Filtration Rate 88 mL/min (>60); Est Glom Filt Rate - Afr Amer 107 mL/min (>60); Estimated Creatinine Clearance 106.79 ml/min; Globulin 4.5 g/dL (2.2-4.2); Glucose 137 mg/dL (74-106); Potassium 3.4 mmol/L (3.5-5.1); Protein, Total 7.6 g/dL (6.4-8.2); Sodium Level 139 mmol/L (136-145)
[2020-10-29 14:19] LABS: Lactic Acid 1.6 mmol/L (0.4-1.9)
[2020-10-29] MEDS: Ipratropium/Albuterol Sulfate 3 ML AMPUL.NEB INHALATION (14:59)
[2020-10-29 15:09] LABS: Mucous, Urine 0 SEEN /hpf (<or=2+); Red Blood Cells-Urine 0 SEEN /hpf (0-5)
[2020-10-29 15:11] LABS: Color, Urine Yellow (Yellow); Glucose, Dipstick Normal (Normal); Ketone-Dipstick Negative (Negative); Leukocyte Esterase-Dipstick 25 /ul (Negative); Nitrite-Dipstick Negative (Negative); Occult Blood-Urine Negative /ul (Negative); Protein-Dipstick 100 mg/dl (Negative); Specific Gravity, Urine 1.015 (1.002-1.030); Urine Bilirubin Dipstick Negative (Negative); Urine Clarity Sl. Cloudy (Clear); Urine Urobilinogen 1 mg/dl (Normal)
[2020-10-29 15:21] LABS: Bacteria 1+ /hpf (None Seen); Squamous Epithelial Cells - UA 0-5 SEEN /hpf (5-10); White Blood Cells 0-5 SEEN /hpf (0-5)
[2020-10-29] MEDS: Acetaminophen 500 MG Tablet 1000 MG PO (15:43)
[2020-10-29] MEDS: dexAMETHasone 4 MG Tablet 6 MG PO (15:46)
--- NOTE | 2020-10-29 15:58 | ED.DEP ---
ED Disposition - Plan for ED Patient: Instructions: ED Pharyngitis, Strep (Confirmed) Prescriptions: Azithromycin [Zithromax Z-Darian] 250 mg PO UD #1 box Prescription Printed Referrals: Asim Cohn [Primary Care Provider] -
== END 2020-10-29 16:11 | disposition home or self-care (01) ==
PROVIDERS: Emergency Provider Emergency Medicine; PCP Family Medicine
DX: J02.0 Streptococcal pharyngitis (principal); E11.9 Type 2 diabetes mellitus without complications; I11.0 Hypertensive heart disease with heart failure; I50.9 Heart failure, unspecified; J44.9 Chronic obstructive pulmonary disease, unspecified; Z79.84 Long term (current) use of oral hypoglycemic drugs; Z79.899 Other long term (current) drug therapy
CPT/HCPCS: 71045; 80053; 81001; 83605; 84484; 85025; 87040; 87426; 87804; 87880; 93005; 94640; 96360; 96361; 99285; J7030

== ENCOUNTER → 2021-04-08 11:14 | Outpatient (CLI) | payer MEDICARE, MEDICAID, SELFPAY ==
[2021-04-01 15:02] VITALS: BMI 40.8
[2021-04-08 15:17] LABS: Anion Gap 4 (5-15); BUN 12 mg/dL (7-18); BUN/Creat Ratio 14.8 RATIO (10-20); Calcium,Total 8.8 mg/dL (8.5-10.1); Chloride 101 mmol/L (98-107); Creatinine, Serum 0.81 mg/dL (0.55-1.02); EST Glomerular Filtration Rate 84 mL/min (>60); Est Glom Filt Rate - Afr Amer 101 mL/min (>60); Glucose 136 mg/dL (74-106); Potassium 3.5 mmol/L (3.5-5.1); Sodium Level 137 mmol/L (136-145)
[2021-04-08 15:30] LABS: AST(SGOT) 26 U/L (15-37); Alanine Aminotransfer ALT/SGPT 56 U/L (13-56); Albumin, Serum 3.3 g/dL (3.2-5.0); Alkaline Phosphatase 90 U/L (45-117); Bilirubin, Direct 0.12 mg/dL (0.00-0.30); Cholesterol 251 mg/dL (200); Globulin 4.2 g/dL (2.2-4.2); High Density Lipoprotein 43 mg/dL; Protein, Total 7.5 g/dL (6.4-8.2); Triglycerides 205 mg/dL; Very Low Density Lipoprotein 41 mg/dL (5-40)
[2021-04-08 15:31] LABS: Protein, Urine (Random) 226.6 mg/dL (<11.9); Protein:Creat Ratio 2740 mg/g CRE (0-200)
== END ==
PROVIDERS: Internal Medicine Cardiovascular Disease; PCP Family Medicine; Referring Provider Internal Medicine Nephrology; Visit Provider Internal Medicine Nephrology
DX: N17.9 Acute kidney failure, unspecified (principal); E78.00 Pure hypercholesterolemia, unspecified
CPT/HCPCS: 36415; 80048; 80061; 80076; 82570; 84156

== ENCOUNTER 2021-08-01 22:32 | Emergency (ER) | payer MEDICARE, MEDICAID, SELFPAY ==
[2021-08-01 22:32] VITALS: BP 235/146; PULSE 115; RESP 18; TEMP 36.8; O2SAT 94; BMI 39.5
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
[2021-08-01] MEDS: Ipratropium/Albuterol Sulfate 3 ML AMPUL.NEB INHALATION (23:03)
[2021-08-01 23:04] VITALS: PULSE 108
[2021-08-01] MEDS: hydrALAZINE 20 MG/ML Vial IV (23:19)
[2021-08-01 23:21] VITALS: BP 217/127; PULSE 109; RESP 18; O2SAT 20; O2SAT 97
[2021-08-01 23:39] LABS: Absolute Lymphocyte Count 2.16 X10^3/uL (0.83-4.51); Absolute Neutrophil Count 6.5 X10^3/uL (2.0-7.7); Basophil# 0.04 X10^3/uL; Basophil% 0.4 % (0-1); Eosinophil# 0.14 X10^3/uL; Eosinophils% 1.4 % (0-5); Hematocrit 45.2 % (37-47); Hemoglobin 14.7 g/dL (12.0-15.0); Lymphocyte # 2.16 X10^3/ul (0.83-4.51); Lymphocyte % 22.1 % (19-41); Mean Corp Hgb Conc 32.5 g/dL (32-36); Mean Corpuscular Hgb 27.3 pg (27.0-32.0); Mean Platelet Vol. 9.9 fl (6.2-12.0); Monocyte# 0.87 X10^3/uL; Monocyte% 8.9 % (0-10); NRBC Flagged by Analyzer 0 % (0-5); Neutrophil # 6.54 X10^3/uL (2.7-7.7); Neutrophil % 66.9 % (47-70); Platelet Count 221 K/mm3 (150-450); RBC Distribution Width CV 13.5 % (11.6-14.6); Red Blood Count 5.38 M/mm3 (4.2-5.4); White Blood Count 9.8 K/mm3 (4.4-11.0)
[2021-08-01 23:46] VITALS: BP 195/115; PULSE 115; RESP 20; O2SAT 97
--- NOTE | 2021-08-01 23:50 | RAD_ITS ---
EXAM: XR CHEST, 1 VIEW : 1980 CLINICAL INDICATION: cough, sob TECHNIQUE: Frontal view of the chest. This report was created using [employer] report generation technology. COMPARISON: 10/29/20 FINDINGS: LUNGS AND PLEURAL SPACES: Patchy bibasilar airspace disease. No pneumothorax. No effusion. HEART: Mild enlargement of the cardiac silhouette. MEDIASTINUM: Central airways and mediastinal contour are unremarkable. BONES/JOINTS: Unremarkable. SOFT TISSUES: Unremarkable. RAD/Chest 1 View (Portable) IMPRESSION: Patchy bibasilar airspace disease. Findings may indicate atelectasis or infection. at 0014 Reported and signed by: Albert Rothman MD Electronically Signed: Albert Rothman MD at 0:14 EDT Tel , Service support ,
[2021-08-01 23:59] LABS: Anion Gap 6 (5-15); BUN 9 mg/dL (7-18); BUN/Creat Ratio 8.9 RATIO (10-20); Chloride 101 mmol/L (98-107); Creatinine, Serum 1.01 mg/dL (0.55-1.02); EST Glomerular Filtration Rate 65 mL/min (>60); Est Glom Filt Rate - Afr Amer 79 mL/min (>60); Estimated Creatinine Clearance 78.93 ml/min; Glucose 173 mg/dL (74-106); Potassium 3.7 mmol/L (3.5-5.1); Sodium Level 139 mmol/L (136-145)
[2021-08-02 00:52] VITALS: PULSE 128; RESP 30
[2021-08-02] MEDS: Albuterol 2.5 MG/3 ML VIAL.NEB. INHALATION ×2 (00:52)
[2021-08-02] MEDS: MethylPREDNISolone 125 MG/2 ML Vial IV (01:01)
[2021-08-02] MEDS: Ceftriaxone 1 GM/50 ML BAG IV (01:01)
[2021-08-02] MEDS: cloNIDine HCl 0.2 MG Tablet PO (01:01)
[2021-08-02 01:05] VITALS: BP 215/110; PULSE 129; RESP 24; TEMP 36.3; O2SAT 94
[2021-08-02] MEDS: cloNIDine HCl 0.1 MG Tablet PO (03:10)
[2021-08-02 03:11] VITALS: BP 186/113; PULSE 118; RESP 20; O2SAT 93
== END 2021-08-02 03:38 | disposition home or self-care (01) ==
PROVIDERS: Emergency Provider Emergency Medicine; PCP Family Medicine
DX: J44.0 Chronic obstructive pulmonary disease with (acute) lower respiratory infection (principal); J22 Unspecified acute lower respiratory infection; J44.1 Chronic obstructive pulmonary disease with (acute) exacerbation; J96.11 Chronic respiratory failure with hypoxia; Z20.822 Contact with and (suspected) exposure to COVID-19; I11.0 Hypertensive heart disease with heart failure; I50.9 Heart failure, unspecified; I27.20 Pulmonary hypertension, unspecified; E11.43 Type 2 diabetes mellitus with diabetic autonomic (poly)neuropathy; E78.5 Hyperlipidemia, unspecified; G47.33 Obstructive sleep apnea (adult) (pediatric); E66.01 Morbid (severe) obesity due to excess calories; Z68.41 Body mass index [BMI] 40.0-44.9, adult; Z79.899 Other long term (current) drug therapy; Z79.84 Long term (current) use of oral hypoglycemic drugs; Z79.52 Long term (current) use of systemic steroids
CPT/HCPCS: 71045; 80048; 85025; 87426; 94640; 96365; 96375; 99284; J7050; A4216

== ENCOUNTER → 2021-08-08 08:52 | Outpatient (CLI) | payer MEDICARE, MEDICAID, SELFPAY | PROVIDERS: PCP Family Medicine; Referring Provider Nurse Practitioner Acute Care; Visit Provider Nurse Practitioner Acute Care | DX: R51.9 Headache, unspecified (principal) | CPT/HCPCS: 87635; C9803; U0005; U0003 ==

== ENCOUNTER 2021-08-14 17:18 | Inpatient (IN) | payer MEDICARE, MEDICAID, SELFPAY ==
[2021-08-14] VITALS (8 sets, daily range): BP systolic 151–220; BP diastolic 95–128; PULSE 74–107; RESP 16–36; TEMP 36.6–36.9; O2SAT 97–98; BMI 44.9; BMI 40.4
--- NOTE | 2021-08-14 17:27 | CT_ITS ---
STUDY: CT BRAIN WITHOUT CONTRAST REASON FOR EXAM: Female, 40 years old. Headache RADIATION DOSAGE (If Supplied By Facility): CTDIvol = ( 44.99 ) mGy, DLP = ( 890.33 ) mGycm TECHNIQUE: Transaxial CT imaging of the brain was performed without administration of intravenous contrast material. Individualized dose optimization techniques were used for this CT. COMPARISON: 11/28/2019 FINDINGS: Normal soft tissue structures. Normal calvarium. Normal size ventricles and extra-axial spaces for the patient''s age. Normal white matter tracts of the cerebral hemispheres. Normal basal ganglia and thalami. Normal brainstem. Normal cerebellum. There is no intracranial hemorrhage. There are no findings of an acute ischemic infarction. Normal visualized paranasal sinuses. CT/Brain/Head without Contrast IMPRESSION: Normal unenhanced CT scan of the brain. Electronically Signed: Tai Davalos DO at 18:59 EST Tel [phone], Service support ,
--- NOTE | 2021-08-14 17:28 | EKG12_ITS ---
Test Reason : PALPS Blood Pressure : / mmHG Vent. Rate : 106 BPM Atrial Rate : 106 BPM P-R Int : 160 ms QRS Dur : 066 ms QT Int : 352 ms P-R-T Axes : 071 081 048 degrees QTc Int : 467 ms Sinus tachycardia Possible Biatrial enlargement Abnormal ECG Confirmed by YULISSA DIAZ, DARLYN ([id number]), non linear editor AFIA ROMERO ([id number]) on 08/18/2021 10:32:30 AM Referred By: MARY Confirmed By:DARLYN DUENAS MD
[2021-08-14 17:44] LABS: Absolute Lymphocyte Count 3.53 X10^3/uL (0.83-4.51); Absolute Neutrophil Count 11.7 X10^3/uL (2.0-7.7); Basophil# 0.05 X10^3/uL; Basophil% 0.3 % (0-1); Eosinophil# 0.08 X10^3/uL; Eosinophils% 0.5 % (0-5); Hematocrit 50.2 % (37-47); Hemoglobin 15.9 g/dL (12.0-15.0); Lymphocyte # 3.53 X10^3/ul (0.83-4.51); Lymphocyte % 21.2 % (19-41); Mean Corp Hgb Conc 31.7 g/dL (32-36); Mean Corpuscular Hgb 27.4 pg (27.0-32.0); Mean Corpuscular Volume 86.4 fL (81-99); Mean Platelet Vol. 9.6 fl (6.2-12.0); Monocyte# 1.27 X10^3/uL; Monocyte% 7.6 % (0-10); NRBC Flagged by Analyzer 0 % (0-5); Neutrophil # 11.67 X10^3/uL (2.7-7.7); Neutrophil % 69.9 % (47-70); Platelet Count 300 K/mm3 (150-450); RBC Distribution Width CV 13.7 % (11.6-14.6); RBC Distribution Width SD 43.2 fl (35.1-43.9); Red Blood Count 5.81 M/mm3 (4.2-5.4); White Blood Count 16.7 K/mm3 (4.4-11.0)
[2021-08-14] MEDS: Furosemide 40 MG/4 ML Vial IV (18:02)
[2021-08-14 18:10] LABS: Anion Gap 2 (5-15); BUN 15 mg/dL (7-18); BUN/Creat Ratio 17.1 RATIO (10-20); Calcium,Total 8.9 mg/dL (8.5-10.1); Chloride 100 mmol/L (98-107); Creatinine, Serum 0.88 mg/dL (0.55-1.02); EST Glomerular Filtration Rate 76 mL/min (>60); Est Glom Filt Rate - Afr Amer 92 mL/min (>60); Estimated Creatinine Clearance 87.44 ml/min; Glucose 143 mg/dL (74-106); Potassium 4.7 mmol/L (3.5-5.1); Sodium Level 136 mmol/L (136-145); Troponin-I HS 12 pg/mL (3.0-54.0)
[2021-08-14 18:16] LABS: BNP,B-Type NATRIURETIC PEPTIDE 37.1 pg/mL (0-100)
[2021-08-14] MEDS: cloNIDine HCl 0.2 MG Tablet PO (18:16)
--- NOTE | 2021-08-14 18:30 | RAD_ITS ---
STUDY: X-RAY CHEST REASON FOR EXAM: Female, 40 years old. Chest pain TECHNIQUE: Frontal view COMPARISON: 08/01/2021 FINDINGS: The lungs are expanded. Right perihilar and right basilar infiltrates. Normal size heart. Normal mediastinum and cherelle. Normal visualized pulmonary arteries. Normal visualized aortic arch and descending thoracic aorta. Normal visualized thoracic spine. Normal visualized ribs, clavicles, and shoulders. There is no demonstrated abnormality of the visualized soft tissue structures of the upper abdomen. RAD/Chest 1 View (Portable) IMPRESSION: Right perihilar and right basilar infiltrates. Electronically Signed: Tai Davalos DO at 19:15 EST Tel [phone], Service support ,
[2021-08-14] MEDS: hydrALAZINE 20 MG/ML Vial 10 MG IV (20:09)
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
--- NOTE | 2021-08-14 20:56 | PCS.PANDOC ---
PANDEMIC DOCUMENTATION INITIATED: Date: 05/19/2021 Time: 190
--- NOTE | 2021-08-14 21:06 | NURSING ---
Pt received both doses of moderna, unsure when.
[2021-08-14] MEDS: Atorvastatin Calcium 40 MG Tablet PO (22:43)
[2021-08-14] MEDS: Enoxaparin 40 MG/0.4 ML Syringe SC (22:43)
[2021-08-14] MEDS: Topiramate 100 MG Tablet PO (22:43)
[2021-08-14] MEDS: Insulin Lispro 100 UNIT/ML INSULN.PEN SC (22:48)
[2021-08-14 22:55] LABS: Bedside Glucose 223 mg/dL (70-110)
[2021-08-15 03:00] VITALS: PULSE 73
[2021-08-15] MEDS: Acetaminophen 325 MG Tablet 650 MG PO ×2 (03:02→09:14)
[2021-08-15 03:07] VITALS: BP 137/80; PULSE 82; RESP 20; TEMP 36.6; O2SAT 99
[2021-08-15 06:55] LABS: Absolute Lymphocyte Count 2.04 X10^3/uL (0.83-4.51); Absolute Neutrophil Count 7.7 X10^3/uL (2.0-7.7); Basophil# 0.05 X10^3/uL; Basophil% 0.5 % (0-1); Eosinophil# 0.11 X10^3/uL; Hematocrit 45.8 % (37-47); Hemoglobin 14.4 g/dL (12.0-15.0); Lymphocyte # 2.04 X10^3/ul (0.83-4.51); Mean Corp Hgb Conc 31.4 g/dL (32-36); Mean Corpuscular Hgb 26.9 pg (27.0-32.0); Mean Corpuscular Volume 85.6 fL (81-99); Mean Platelet Vol. 9.4 fl (6.2-12.0); Monocyte# 0.82 X10^3/uL; Monocyte% 7.6 % (0-10); NRBC Flagged by Analyzer 0 % (0-5); Neutrophil # 7.68 X10^3/uL (2.7-7.7); Neutrophil % 71.4 % (47-70); Platelet Count 238 K/mm3 (150-450); RBC Distribution Width CV 13.7 % (11.6-14.6); RBC Distribution Width SD 42.5 fl (35.1-43.9); Red Blood Count 5.35 M/mm3 (4.2-5.4); White Blood Count 10.8 K/mm3 (4.4-11.0)
[2021-08-15 07:00] VITALS: PULSE 81
[2021-08-15 07:30] LABS: Bedside Glucose 131 mg/dL (70-110)
[2021-08-15 07:31] LABS: Anion Gap 6 (5-15); BUN 16 mg/dL (7-18); BUN/Creat Ratio 19.3 RATIO (10-20); Calcium,Total 8.4 mg/dL (8.5-10.1); Chloride 99 mmol/L (98-107); Creatinine, Serum 0.83 mg/dL (0.55-1.02); EST Glomerular Filtration Rate 81 mL/min (>60); Est Glom Filt Rate - Afr Amer 98 mL/min (>60); Estimated Creatinine Clearance 96.04 ml/min; Glucose 137 mg/dL (74-106); Potassium 3.6 mmol/L (3.5-5.1); Sodium Level 136 mmol/L (136-145); Thyroid Stim Hormone (TSH) 2.14 uIU/mL (0.358-3.74)
[2021-08-15] MEDS: Ipratropium/Albuterol Sulfate 3 ML AMPUL.NEB INHALATION ×2 (07:36→11:14)
[2021-08-15 08:59] VITALS: O2SAT 89; O2SAT 94; O2SAT 96; O2SAT 98
[2021-08-15 09:07] VITALS: BP 141/77; PULSE 92; RESP 16; TEMP 36.7; O2SAT 94
[2021-08-15] MEDS: Topiramate 50 MG Tablet PO (09:11)
[2021-08-15 09:12] VITALS: PULSE 92
[2021-08-15] MEDS: Pantoprazole Sodium 40 MG Tablet PO (09:12)
[2021-08-15] MEDS: predniSONE 20 MG Tablet 60 MG PO (09:12)
[2021-08-15] MEDS: Losartan Potassium 100 MG Tablet PO (09:12)
[2021-08-15] MEDS: Enoxaparin 40 MG/0.4 ML Syringe SC (09:12)
[2021-08-15] MEDS: Metoprolol(XL)Succ 100 MG Tablet PO (09:12)
[2021-08-15] MEDS: Potassium Chloride Oral Tablet 20 MEQ PO (09:12)
[2021-08-15] MEDS: amLODIPine 10 MG Tablet PO (09:12)
[2021-08-15] MEDS: Furosemide 40 MG Tablet PO (09:12)
[2021-08-15] MEDS: 0.9% Saline Lock 10 ML Syringe IV ×2 (10:29→13:18)
[2021-08-15] MEDS: Ondansetron 4 MG/2 ML Vial IV (10:29)
[2021-08-15 11:20] LABS: Bedside Glucose 235 mg/dL (70-110)
[2021-08-15] MEDS: Insulin Lispro 100 UNIT/ML INSULN.PEN SC (11:34)
--- NOTE | 2021-08-15 11:45 | CASEMGMT ---
PATRICK WINKLER assessment: Face to Face with patient for initial transition planning/care coordination assessment. PATRICK WINKLER introduced self and role at [facility], pt voices understanding and consents to assessment. Pt is sitting up in bed in no distress on 2L nc. Pt is A/Ox4 and answers all questions appropriately. Care providers, pharmacy, and demographics verified. Presentation: Pt came in for HTN and is on meds Admitting dx: HTN, pna PCP: Lalit Specialists: Kevin, pulm; Shelby, nephro; [place], cardio Preferred Pharmacy: [facility] Insurance: [employer] Prescription Benefit: [employer] Living Will/HPOA: Pt states does not have LW/HPOA and declines AD info. LNOK: Tamanna Cage, sister; Gustabo Cage, son Living Arrangements: Pt lives alone in 1 story apt with no steps and states no concerns at home. Pt is independent with ADL's. Transportation: Pt takes taxi or bus and states no transportation concerns. DME/HHC: Pt has the following DME: grab bars, shower chair, cpap, and 3L thru [facility]. Pt states no need for any further DME. Pt states has had [facility] but has not been to SNF. Pt states goes to [facility] twice weekly. Pt states has CM thru [facility] but is unsure of name. Pt states no concerns with going home at time of discharge. Pt is disabled. Pt states does not smoke cigarettes or drink ETOH. Pt voices no further concerns/needs. CM to follow for any further discharge planning/needs. Advised pt to ask for CM if any further questions/concerns/needs arise, voices understanding. Pt Goal: Home Plan[place] PATRICK WINKLER
[2021-08-15 12:17] LABS: D-Dimer Quantitative (DVT/PE) 0.32 FEU/ug/m (0.27-0.49)
--- NOTE | 2021-08-15 12:26 | PCM.DC ---
Discharge Instructions Diet Discharge Diet: No restrictions Activity Discharge Activity: Return to Normal Activity Weight Bearing Status: Weight bearing as tolerated Dressing / Incision Call your doctor if you observe: Fever of 101 or Higher, Numbness or Tingling, Shortness of breath, Dizziness, Chest pain, Increased palpitations (irregular heartbeat) and Calf discomfort Follow Up Care Please Follow Up With: Primary care provider When: Within the next two weeks. Test Results: Test results from this visit will be discussed in further detail at your follow-up appointment, if applicable. Discharge Plan Admission Admit Date/Time: 08/14/21 20:17 Primary Reason for Your Visit: Elevated blood pressure Attending Provider: Nreis Sanchez Primary Care Provider: Asim Cohn Discharge Orders/Prescriptions Prescriptions: New levofloxacin 500 mg tablet 500 mg PO DAILY Qty: 6 RF: 0 Continued gabapentin 100 mg capsule 100 mg PO TID RF: 0 Victoza 2-Darian 0.6 mg/0.1 mL (18 mg/3 mL) pen injector 0.6 mg SC TH RF: 0 albuterol sulfate 90 mcg/actuation HFA aerosol inhaler 2 puff inhalation Q6H PRN (Reason: SOB) RF: 0 montelukast 10 MG tablet 10 mg PO QHS RF: 0 dicyclomine 10 mg capsule 10 mg PO Q6H RF: 0 pantoprazole 40 MG tablet 40 mg PO DAILY RF: 0 metformin 500 mg tablet 500 mg PO ACHS RF: 0 amlodipine 5 MG tablet 10 mg PO DAILY RF: 0 fluoxetine 40 MG capsule 40 mg PO DAILY RF: 0 ascorbic acid (vitamin C) 500 MG tablet 500 mg PO DAILY@1200 RF: 0 buspirone 15 MG tablet 15 mg PO BID RF: 0 Cholecalciferol (Vitamin D3) [Vitamin D3] 5,000 UNIT capsule 5,000 unit PO DAILY@1200 RF: 0 irbesartan 150 mg tablet 300 mg PO DAILY RF: 0 topiramate 50 mg capsule,extended release 24hr 50 mg PO DAILY RF: 0 topiramate 100 mg capsule,extended release 24hr 100 mg PO QHS RF: 0 irbesartan 150 mg Tablet 150 mg PO DAILY RF: 0 levofloxacin 500 mg Tablet 500 mg PO Q24H RF: 0 atorvastatin 40 mg tablet 40 mg PO QHS RF: 0 ipratropium-albuterol 0.5 mg-3 mg(2.5 mg base)/3 mL solution for nebulization 3 ml inhalation Q4H.RT RF: 0 prednisone 20 mg tablet 60 mg PO QDAY RF: 0 metoprolol succinate 100 mg tablet extended release 24 hr 100 mg PO DAILY RF: 0 furosemide 40 mg tablet 40 mg PO BID Qty: 60 RF: 11 potassium chloride 20 mEq tablet,ER particles/crystals 20 meq PO BID Qty: 60 RF: 11 Referrals / Follow Up: Asim Cohn [Primary Care Provider] - Within 2 Weeks Edward Beasley MD [STAFF PHYSICIAN] - Within 2 Weeks Disposition Disposition (needs filled in before D/C Order can be placed): Home, Self Care
[2021-08-15] MEDS: Furosemide 20 MG/2 ML VIAL IV (13:18)
--- NOTE | 2021-08-15 15:12 | DS.PCM_ITS ---
Documented by User: Franklyn BENJAMIN 08/15/21 15:21 Providers Date of Admission: 08/14/21 Primary Care Physician: Asim Cohn Reason For Visit: HYPERTENSION, PNEUMONIA Diagnosis Discharge Diagnosis (1) Hypertensive emergency: Status: Resolved Code(s): I16.1 - Hypertensive emergency (2) Pneumonia: Code(s): J18.9 - Pneumonia, unspecified organism Qualifiers: Laterality: right Lung location: unspecified part of lung Pneumonia type: due to unspecified organism Qualified Code(s): J18.9 - Pneumonia, unspecified organism (3) Diabetic autonomic neuropathy associated with type 2 diabetes mellitus: Code(s): E11.43 - Type 2 diabetes mellitus with diabetic autonomic (poly)neuropathy Medications at Discharge Home Medications montelukast 10 mg PO QHS 04/21/16 gabapentin 100 mg capsule 100 mg PO TID cap 09/24/17 pantoprazole 40 mg PO DAILY 11/07/18 liraglutide 0.6 mg/0.1 mL (18 mg/3 mL) subcutaneous pen injector 0.6 mg SC TH ml 05/18/19 Cholecalciferol (Vitamin D3) [Vitamin D3] 5,000 unit PO DAILY@1200 10/29/20 amlodipine 10 mg PO DAILY 10/29/20 ascorbic acid (vitamin C) 500 mg PO DAILY@1200 10/29/20 buspirone 15 mg PO BID 10/29/20 fluoxetine 40 mg PO DAILY 10/29/20 dicyclomine 10 mg capsule 10 mg PO Q6H cap 04/01/21 irbesartan 150 mg tablet 300 mg PO DAILY tab 04/01/21 topiramate 100 mg capsule,extended release 24 hr 100 mg PO QHS 04/01/21 topiramate 50 mg capsule,extended release 24 hr 50 mg PO DAILY 04/01/21 furosemide 40 mg tablet 40 mg PO BID #60 tab 06/12/21 potassium chloride 20 mEq tablet,extended release(part/cryst) 20 meq PO BID #60 tab 06/12/21 albuterol sulfate 90 mcg/actuation aerosol inhaler 2 puff INHALATION Q6H PRN 08/08/21 atorvastatin 40 mg PO QHS 08/14/21 ipratropium-albuterol 3 ml INHALATION Q4H.RT 08/14/21 irbesartan 150 mg PO DAILY 11/11/21 levofloxacin 500 mg PO Q24H 08/14/21 metoprolol succinate 100 mg PO DAILY 08/14/21 prednisone 60 mg PO QDAY 08/14/21 levofloxacin 500 mg PO DAILY #6 tab 08/15/21 metformin 500 mg PO BID #60 tab 08/15/21 Hospital Course Summary of Care Provided Minutes Spent on Discharge: 35 Hospital Course: Disposition: Patient to discharge home. 1) hypertensive emergency Resolved. No evidence of endorgan damage. 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 2) community-acquired pneumonia Vital signs stable and patient is afebrile, currently satting 94% on 2 L via nasal cannula. CBC and BMP are unremarkable. Rapid Covid negative. Patient initiated on Rocephin and azithromycin during admission, discharged on Levaquin x6 days. 3) DM2 Not well controlled, blood sugars elevated throughout admission. Increase Metformin to 500 g p.o. twice daily, continue other diabetic regimen. 4) morbid obesity Patient weight is 274 pounds with a BMI of 40.5. Weight loss advised. Patient seen by Franklyn Pabon PA-C, under the supervision of Dr. Sanchez. Physical Exam Narrative Patient is a 40-year-old female lying in bed, alert and orient x3. Patient still with complaints that are of a chronic nature, denies development of any new symptoms overnight. Does not appear to be in acute distress. Const alert, oriented x3 and no apparent distress HEENT normocephalic, head/scalp atraumatic and hearing grossly normal bilaterally Eyes PERRL, EOMs intact bilaterally and conjunctivae normal Neck no lymphadenopathy, supple and no JVD Resp normal respiratory effort, no retractions, no use of accessory muscles and clear to auscultation bilaterally Cardio regular rate, regular rhythm, no murmurs and no JVD GI normal to inspection, nondistended, normoactive bowel sounds, soft to palpation and non-tender Extremity normal to inspection, full ROM and no clubbing, cyanosis or edema Skin no rashes or lesions noted, no wounds and skin turgor normal Neuro CN's II-XII intact bilaterally Psych affect normal Weight / BMI Weight Weight: 274 lb 0.553 oz Body Mass Index (BMI) 40.4 ABG / Lab / Microbiology Data Result Diagrams: 08/15/21 06:45 08/15/21 06:45 Laboratory: Laboratory Results - last 24 hr 08/14/21 17:28: WBC 16.7 H, RBC 5.81 H, Hgb 15.9 H, Hct 50.2 H, MCV 86.4, MCH 27.4, MCHC 31.7 L, RDW Std Deviation 43.2, RDW Coeff of Lillian 13.7, Plt Count 300, MPV 9.6, Immature Gran % (Auto) 0.500, Neut % (Auto) 69.9, Lymph % (Auto) 21.2, Dickinson % (Auto) 7.6, Eos % (Auto) 0.5, Baso % (Auto) 0.3, Absolute Neuts (auto) 11.7 H, Absolute Lymphs (auto) 3.53, Nucleated RBC % 0 08/14/21 17:28: Sodium 136, Potassium 4.7, Chloride 100, Carbon Dioxide 34.0 H, Anion Gap 2 L, BUN 15, Creatinine 0.88, Estim Creat Clear Calc 87.44, Est GFR (MDRD) Af Amer 92, Est GFR (MDRD) Non-Af 76, BUN/Creatinine Ratio 17.1, Glucose 143 H, Calcium 8.9, Troponin I High Sens 12 08/14/21 17:28: B-Natriuretic Peptide 37.1 08/14/21 22:40: POC Glucose 223 H 08/15/21 06:40: POC Glucose 131 H 08/15/21 06:45: WBC 10.8, RBC 5.35, Hgb 14.4, Hct 45.8, MCV 85.6, MCH 26.9 L, MCHC 31.4 L, RDW Std Deviation 42.5, RDW Coeff of Lillian 13.7, Plt Count 238, MPV 9.4, Immature Gran % (Auto) 0.500, Neut % (Auto) 71.4 H, Lymph % (Auto) 19.0, Dickinson % (Auto) 7.6, Eos % (Auto) 1.0, Baso % (Auto) 0.5, Absolute Neuts (auto) 7.7, Absolute Lymphs (auto) 2.04, Nucleated RBC % 0 08/15/21 06:45: Sodium 136, Potassium 3.6, Chloride 99, Carbon Dioxide 31.0, Anion Gap 6, BUN 16, Creatinine 0.83, Estim Creat Clear Calc 96.04, Est GFR (MDRD) Af Amer 98, Est GFR (MDRD) Non-Af 81, BUN/Creatinine Ratio 19.3, Glucose 137 H, Calcium 8.4 L, TSH 2.14 08/15/21 11:08: POC Glucose 235 H 08/15/21 11:57: D-Dimer Quant (PE/DVT) 0.32 Microbiology: Microbiology 08/14/21 18:35 Nasal Secretion SARS-CoV-2 Antigen (Rapid) - Final Radiography Diagnostic Testing: Radiology Impression Brain CT 08/14/21 17:27 IMPRESSION: Normal unenhanced CT scan of the brain. Electronically Signed: Tai Davalos DO at 18:59 EST Tel [phone], Service support , Chest X-Ray 08/14/21 18:30 IMPRESSION: Right perihilar and right basilar infiltrates. Electronically Signed: Tai Davalos DO at 19:15 EST Tel [phone], Service support , D/C Instructions Discharge Diet: No restrictions Weight Bearing Status: Weight bearing as tolerated Call your doctor if you observe: Fever of 101 or Higher, Numbness or Tingling, Shortness of breath, Dizziness, Chest pain, Increased palpitations (irregular heartbeat) and Calf discomfort Please Follow Up With: Primary care provider When: Within the next two weeks. Meaningful Use Info Meaningful Use Diagnoses (Choose all that apply): None applicable Discharge Plan Admission Admit Date/Time: 08/14/21 20:17 Primary Reason for Your Visit: Elevated blood pressure Attending Provider: Neris Sanchez Primary Care Provider: Asim Cohn Discharge Orders/Prescriptions Prescriptions: New levofloxacin 500 mg tablet 500 mg PO DAILY Qty: 6 RF: 0 metformin 500 mg tablet 500 mg PO BID Qty: 60 RF: 0 Continued gabapentin 100 mg capsule 100 mg PO TID RF: 0 Victoza 2-Darian 0.6 mg/0.1 mL (18 mg/3 mL) pen injector 0.6 mg SC TH RF: 0 albuterol sulfate 90 mcg/actuation HFA aerosol inhaler 2 puff inhalation Q6H PRN (Reason: SOB) RF: 0 montelukast 10 MG tablet 10 mg PO QHS RF: 0 dicyclomine 10 mg capsule 10 mg PO Q6H RF: 0 pantoprazole 40 MG tablet 40 mg PO DAILY RF: 0 amlodipine 5 MG tablet 10 mg PO DAILY RF: 0 fluoxetine 40 MG capsule 40 mg PO DAILY RF: 0 ascorbic acid (vitamin C) 500 MG tablet 500 mg PO DAILY@1200 RF: 0 buspirone 15 MG tablet 15 mg PO BID RF: 0 Cholecalciferol (Vitamin D3) [Vitamin D3] 5,000 UNIT capsule 5,000 unit PO DAILY@1200 RF: 0 irbesartan 150 mg tablet 300 mg PO DAILY RF: 0 topiramate 50 mg capsule,extended release 24hr 50 mg PO DAILY RF: 0 topiramate 100 mg capsule,extended release 24hr 100 mg PO QHS RF: 0 irbesartan 150 mg Tablet 150 mg PO DAILY RF: 0 levofloxacin 500 mg Tablet 500 mg PO Q24H RF: 0 atorvastatin 40 mg tablet 40 mg PO QHS RF: 0 ipratropium-albuterol 0.5 mg-3 mg(2.5 mg base)/3 mL solution for nebulization 3 ml inhalation Q4H.RT RF: 0 prednisone 20 mg tablet 60 mg PO QDAY RF: 0 metoprolol succinate 100 mg tablet extended release 24 hr 100 mg PO DAILY RF: 0 furosemide 40 mg tablet 40 mg PO BID Qty: 60 RF: 11 potassium chloride 20 mEq tablet,ER particles/crystals 20 meq PO BID Qty: 60 RF: 11 Discontinued metformin 500 mg tablet 500 mg PO ACHS RF: 0 Referrals / Follow Up: Edward Beasley MD [STAFF PHYSICIAN] - Within 2 Weeks Asim Cohn [Primary Care Provider] - Within 2 Weeks Disposition Disposition (needs filled in before D/C Order can be placed): Home, Self Care Documented by User: Dr. Neris Sanchez MD 08/16/21 09:25 Providers Date of Admission: 08/14/21 Reason For Visit: HYPERTENSION, PNEUMONIA Medications at Discharge Home Medications montelukast 10 mg PO QHS 04/21/16 gabapentin 100 mg capsule 100 mg PO TID cap 09/24/17 pantoprazole 40 mg PO DAILY 11/07/18 liraglutide 0.6 mg/0.1 mL (18 mg/3 mL) subcutaneous pen injector 0.6 mg SC TH ml 05/18/19 Cholecalciferol (Vitamin D3) [Vitamin D3] 5,000 unit PO DAILY@1200 10/29/20 amlodipine 10 mg PO DAILY 10/29/20 ascorbic acid (vitamin C) 500 mg PO DAILY@1200 10/29/20 buspirone 15 mg PO BID 10/29/20 fluoxetine 40 mg PO DAILY 10/29/20 dicyclomine 10 mg capsule 10 mg PO Q6H cap 04/01/21 irbesartan 150 mg tablet 300 mg PO DAILY tab 04/01/21 topiramate 100 mg capsule,extended release 24 hr 100 mg PO QHS 04/01/21 topiramate 50 mg capsule,extended release 24 hr 50 mg PO DAILY 04/01/21 furosemide 40 mg tablet 40 mg PO BID #60 tab 06/12/21 potassium chloride 20 mEq tablet,extended release(part/cryst) 20 meq PO BID #60 tab 06/12/21 albuterol sulfate 90 mcg/actuation aerosol inhaler 2 puff INHALATION Q6H PRN 08/08/21 atorvastatin 40 mg PO QHS 08/14/21 ipratropium-albuterol 3 ml INHALATION Q4H.RT 08/14/21 irbesartan 150 mg PO DAILY 08/14/21 levofloxacin 500 mg PO Q24H 08/14/21 metoprolol succinate 100 mg PO DAILY 08/14/21 prednisone 60 mg PO QDAY 08/14/21 levofloxacin 500 mg PO DAILY #6 tab 08/15/21 metformin 500 mg PO BID #60 tab 08/15/21 ABG / Lab / Microbiology Data Result Diagrams: 08/15/21 06:45 08/15/21 06:45 Discharge Plan Admission Admit Date/Time: 08/14/21 20:17 Primary Reason for Your Visit: Elevated blood pressure Attending Provider: Neris Sanchez Primary Care Provider: Asim Cohn Discharge Orders/Prescriptions Prescriptions: New levofloxacin 500 mg tablet 500 mg PO DAILY Qty: 6 RF: 0 metformin 500 mg tablet 500 mg PO BID Qty: 60 RF: 0 Continued gabapentin 100 mg capsule 100 mg PO TID RF: 0 Victoza 2-Darian 0.6 mg/0.1 mL (18 mg/3 mL) pen injector 0.6 mg SC TH RF: 0 albuterol sulfate 90 mcg/actuation HFA aerosol inhaler 2 puff inhalation Q6H PRN (Reason: SOB) RF: 0 montelukast 10 MG tablet 10 mg PO QHS RF: 0 dicyclomine 10 mg capsule 10 mg PO Q6H RF: 0 pantoprazole 40 MG tablet 40 mg PO DAILY RF: 0 amlodipine 5 MG tablet 10 mg PO DAILY RF: 0 fluoxetine 40 MG capsule 40 mg PO DAILY RF: 0 ascorbic acid (vitamin C) 500 MG tablet 500 mg PO DAILY@1200 RF: 0 buspirone 15 MG tablet 15 mg PO BID RF: 0 Cholecalciferol (Vitamin D3) [Vitamin D3] 5,000 UNIT capsule 5,000 unit PO DAILY@1200 RF: 0 irbesartan 150 mg tablet 300 mg PO DAILY RF: 0 topiramate 50 mg capsule,extended release 24hr 50 mg PO DAILY RF: 0 topiramate 100 mg capsule,extended release 24hr 100 mg PO QHS RF: 0 irbesartan 150 mg Tablet 150 mg PO DAILY RF: 0 levofloxacin 500 mg Tablet 500 mg PO Q24H RF: 0 atorvastatin 40 mg tablet 40 mg PO QHS RF: 0 ipratropium-albuterol 0.5 mg-3 mg(2.5 mg base)/3 mL solution for nebulization 3 ml inhalation Q4H.RT RF: 0 prednisone 20 mg tablet 60 mg PO QDAY RF: 0 metoprolol succinate 100 mg tablet extended release 24 hr 100 mg PO DAILY RF: 0 furosemide 40 mg tablet 40 mg PO BID Qty: 60 RF: 11 potassium chloride 20 mEq tablet,ER particles/crystals 20 meq PO BID Qty: 60 RF: 11 Discontinued metformin 500 mg tablet 500 mg PO ACHS RF: 0 Referrals / Follow Up: Edward Beasley MD [STAFF PHYSICIAN] - Within 2 Weeks Asim Cohn [Primary Care Provider] - Within 2 Weeks Disposition Disposition (needs filled in before D/C Order can be placed): Home, Self Care Charges/Coding Addendum Addendum: This patient was seen in conjunction with CASSIDY New. I have independently interviewed and examined the patient and reviewed pertinent historical, laboratory, and other data. Please refer to CASSIDY New's note for his patient's presentation, findings, and recommendations. I have reviewed and his note and concur with his documentation 40-year-old female with multiple comorbidities who presented with 2-week history of persistent headache. He was found to have a blood pressure of 215/120. This improved with use of clonidine hydralazine. Patient's admitting x-ray was suggestive of possible community-acquired pneumonia. She was started on azithromycin and Ceftriaxone. She was discharged on Levaquin to complete 1 week. On the day of discharge, patient was seen with examined. Denied any new complaints. Physical Exam: Gen: Morbidly obese, comfortable, not pale, not jaundiced CVS:HS I +II, regular, no murmurs RESP: Diminished at lung bases GI: BS present and normal, soft, nontender, no palpable organs EXT:No edema Visit Charges Inpatient E&M: 80194 Disch Hosp
--- NOTE | 2021-08-18 13:09 | CASEMGMT ---
Call receivecd from George Hernandez with [facility]. Pt's director of patient care is Ruby Mercado, (P) [phone], (F) [phone]. Pt has waiver services including [facility] Wednesday/ each week, 5 meals/week from [employer], and an emergency response from [facility]. Pt's dc instructions faxed to pt's director of patient care for continuity of care. Rio Geller RN CM
--- NOTE | 2021-08-18 13:51 | CASEMGMT ---
PATRICK WINKLER Discharge Follow-up Phone Call: ABDIRAHMAN: Destiney Strata: 3 Call Date: 08/18/21 Discharge Date: 08/15/21 Time of Call: 1345 Duration: 3 min Admitting Diagnosis: Hypertension, Pneumonia PATRICK WINKLER completed follow-up phone call after recent hospitalization. Patient states she is doing well. Patient had no questions or concerns regarding discharge instructions. Patient was able to fill prescriptions without any issues. Patient aware to schedule follow-up appts. Patient had no further concerns at this time.
== END 2021-08-15 13:56 | disposition home or self-care (01) | DRG 304 ==
LOC: ED 18:06 → PCU 20:29
PROVIDERS: Physician Assistant; Admitting Provider Hospitalist; Emergency Provider Emergency Medicine; PCP Family Medicine; Visit Provider Internal Medicine
DX: I16.1 Hypertensive emergency (principal); J18.9 Pneumonia, unspecified organism; J44.0 Chronic obstructive pulmonary disease with (acute) lower respiratory infection; J96.11 Chronic respiratory failure with hypoxia; Z68.41 Body mass index [BMI] 40.0-44.9, adult; Z23 Encounter for immunization; Z20.822 Contact with and (suspected) exposure to COVID-19; I11.0 Hypertensive heart disease with heart failure; I50.9 Heart failure, unspecified; E11.65 Type 2 diabetes mellitus with hyperglycemia; E11.43 Type 2 diabetes mellitus with diabetic autonomic (poly)neuropathy; E78.5 Hyperlipidemia, unspecified; G47.33 Obstructive sleep apnea (adult) (pediatric); E66.01 Morbid (severe) obesity due to excess calories; Z99.81 Dependence on supplemental oxygen; Z79.84 Long term (current) use of oral hypoglycemic drugs; Z79.52 Long term (current) use of systemic steroids; Z79.899 Other long term (current) drug therapy; Z79.890 Hormone replacement therapy
CPT/HCPCS: 36415; 70450; 71045; 80048; 82962; 83880; 84443; 84484; 85025; 85379; 87426; 93005; 99285; G0008; J7050; 90686; A4216; J0696; J1940; J2405

== ENCOUNTER → 2021-08-29 10:22 | Outpatient (CLI) | payer MEDICARE, MEDICAID, SELFPAY ==
[2021-08-29 11:55] LABS: AST(SGOT) 24 U/L (15-37); Alanine Aminotransfer ALT/SGPT 41 U/L (13-56); Albumin, Serum 3.3 g/dL (3.2-5.0); Alkaline Phosphatase 76 U/L (45-117); Anion Gap 6 (5-15); BUN 8 mg/dL (7-18); Bilirubin, Direct 0.17 mg/dL (0.00-0.30); Calcium,Total 8.5 mg/dL (8.5-10.1); Chloride 102 mmol/L (98-107); Cholesterol 194 mg/dL (200); EST Glomerular Filtration Rate 85 mL/min (>60); Est Glom Filt Rate - Afr Amer 102 mL/min (>60); Globulin 4.6 g/dL (2.2-4.2); Glucose 123 mg/dL (74-106); High Density Lipoprotein 50 mg/dL; Potassium 3.6 mmol/L (3.5-5.1); Protein, Total 7.9 g/dL (6.4-8.2); Sodium Level 138 mmol/L (136-145); Triglycerides 147 mg/dL; Very Low Density Lipoprotein 29 mg/dL (5-40)
== END ==
PROVIDERS: Internal Medicine Cardiovascular Disease; PCP Family Medicine; Referring Provider Internal Medicine Nephrology; Visit Provider Internal Medicine Nephrology
DX: I10 Essential (primary) hypertension (principal); E78.5 Hyperlipidemia, unspecified
CPT/HCPCS: 36415; 80048; 80061; 80076

== ENCOUNTER → 2021-09-11 10:14 | Outpatient (CLI) | payer MEDICARE, MEDICAID, SELFPAY | PROVIDERS: PCP Family Medicine; Referring Provider Nurse Practitioner Gerontology; Visit Provider Nurse Practitioner Gerontology | DX: I47.1 Supraventricular tachycardia (principal) | CPT/HCPCS: 93225; 93226 ==

== ENCOUNTER → 2022-06-06 | Outpatient (CLI) | payer MEDICARE, SELFPAY ==
[2022-06-06 09:42] LABS: Anion Gap 3 (5-15); BUN 10 mg/dL (7-18); Calcium,Total 8.7 mg/dL (8.5-10.1); Chloride 102 mmol/L (98-107); Creatinine, Serum 0.91 mg/dL (0.55-1.02); EST Glomerular Filtration Rate 73 mL/min (>60); Est Glom Filt Rate - Afr Amer 88 mL/min (>60); Glucose 168 mg/dL (74-106); Potassium 3.6 mmol/L (3.5-5.1); Sodium Level 138 mmol/L (136-145)
[2022-06-06 10:16] LABS: Microalbumin:Creatinine Ratio 819.1 mg/g CRE (<30 mg/g CRE); Protein, Urine (Random) 232.1 mg/dL (<11.9); Protein:Creat Ratio 1235 mg/g CRE (0-200)
== END | disposition home or self-care (01) ==
LOC: LAB 08:23
PROVIDERS: Internal Medicine Nephrology; PCP Family Medicine; Visit Provider Family Medicine
DX: I10 Essential (primary) hypertension (principal); R80.9 Proteinuria, unspecified
CPT/HCPCS: 36415; 80048; 82043; 82570; 84156

== ENCOUNTER → 2022-06-24 | Outpatient (CLI) | payer MEDICARE, SELFPAY ==
--- NOTE | 2022-06-25 08:05 | PFT ---
INTRODUCTION: The patient is a 41-year-old female that presents for pulmonary function studies secondary to a diagnosis of lung disorder. Respiratory therapy reported good patient effort. Bronchodilators were used during testing. INTERPRETATION: Forced expiration spirometry demonstrates no evidence of a large airways obstructive ventilatory defect. There was no significant response to aerosolized bronchodilators. Spirograms are of good quality and plateau normally. Body plethysmography was performed and revealed a decreased TLC to 2.5 L, 41% of predicted, indicative of a severe restrictive ventilatory impairment. The remainder of the lung volumes are symmetrically reduced. Diffusing capacity by single breath CO is reduced at 37% of predicted. When compared to previous pulmonary function studies, there has been a 19% reduction in DLCO since October 2020. 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 There has been interval worsening in the patient's DLCO since October 2020, as noted above.
== END | disposition home or self-care (01) ==
LOC: PSN 08:57
PROVIDERS: PCP Family Medicine; Referring Provider Internal Medicine Critical Care Medicine; Visit Provider Internal Medicine Critical Care Medicine
DX: J98.4 Other disorders of lung (principal)
CPT/HCPCS: 94060; 94726; 94729

== ENCOUNTER → 2022-06-25 | Outpatient (CLI) | payer MEDICARE, SELFPAY ==
--- NOTE | 2022-06-25 08:26 | ECHOCS_ITS ---
Reason For Study: HTN Procedure This was a 2D Doppler, Color Flow transthoracic echocardiogram. The study was technically difficult. Contrast injection was performed. Exam performed in department. Left Ventricle Based upon the 2D echocardiographic and contrast enhanced images obtained there appears to be grossly normal left ventricular size, wall motion, and systolic function. The estimated ejection fraction is 65 %. Unable to assess diastolic dysfunction. Right Ventricle Based upon the 2D echocardiographic images obtained appears to be grossly normal right ventricular size and systolic function. Atria Normal left atrium. Normal right atrium. No doppler evidence for ASD. Mitral Valve There is no mitral annular calcification. Normal mitral valve. Tricuspid Valve Normal tricuspid valve. Aortic Valve The aortic valve is not well visualized. Pulmonic Valve The pulmonic valve is not well visualized. Great Vessels The aortic root is not well visualized. Pericardium/Pleural No pericardial effusion. Medication 22 gauge I.V. with prn adaptor inserted into right arm. Diluted definity 4ml given slow IV push to enhance endocardial definition. MMode/2D Measurements & Calculations LAV(MOD-bp): 53.0 ml LA dimension(2D): 3.9 cm LA A4 area: 21.7 cm2 LAV(MOD-bp) Indexed: 22.6 ml/m2 LAV(MOD-sp2): 44.2 ml LAV(MOD-sp4): 59.6 ml RA A4 area: 12.4 cm2 Time Measurements MV dec time: 0.21 sec Doppler Measurements & Calculations MV E max zoe: 114.1 cm/sec MV V2 max: 131.2 cm/sec MV A max zoe: 112.0 cm/sec MV max P.9 mmHg MV dec slope: 551.4 cm/sec2 MV E/A: 1.0 MV V2 mean: 87.9 cm/sec MV mean P.6 mmHg MV V2 VTI: 31.0 cm Ao V2 max: 166.9 cm/sec LV V1 max: 89.9 cm/sec Ao max P.2 mmHg LV V1 max P.3 mmHg Ao V2 mean: 108.1 cm/sec LV V1 mean P.9 mmHg Ao mean P.4 mmHg LV V1 mean: 64.6 cm/sec Ao V2 VTI: 30.4 cm LV V1 VTI: 15.7 cm ECHO/Echo Complete W/ Contrast Interpretation Summary The study was technically difficult. Contrast injection was performed. Based upon the 2D echocardiographic and contrast enhanced images obtained there appears to be grossly normal left ventricular size, wall motion, and systolic function. The estimated ejection fraction is 65 %. Unable to assess diastolic dysfunction. Ordering Physician: Norma Dunn Referring Physician: Norma Dunn Performed By: Laly Etienne RCS
[2022-06-25 09:10] VITALS: PULSE 110; PULSE 111; PULSE 113; PULSE 116; PULSE 120; PULSE 122; PULSE 124; O2SAT 84; O2SAT 85; O2SAT 88; O2SAT 90; O2SAT 93; O2SAT 94; O2SAT 97
--- NOTE | 2022-06-25 09:13 | CPS ---
CLIFTON IS ON OXYGEN AT HOME. SHE BROUGHT POC DEVICE WITH HER FOR TESTING AND WAS ON RA FOR 10 MINUTES PRIOR TO BEGINNING WALK. ONLY 2 BRIEF REST BREAKS WERE TAKEN TO APPLY, THEN INCREASE OXYGEN LITER FLOW AND LET HER SPO2 RECOVER BEFORE CONTINUING WALK. HER SPO2 WAS MORE STABLE WHEN SHE DID NOT TALK WHILE WALKING, ALTHOUGH AT END OF TESTING SHE STILL WAS 88% ON 3LPM.
[2022-06-25 11:18] LABS: Absolute Lymphocyte Count 2.05 X10^3/uL (0.83-4.51); Absolute Neutrophil Count 7.8 X10^3/uL (2.0-7.7); Basophil# 0.03 X10^3/uL; Basophil% 0.3 % (0-1); Eosinophil# 0.14 X10^3/uL; Eosinophils% 1.3 % (0-5); Hematocrit 45.3 % (37-47); Hemoglobin 14.5 g/dL (12.0-15.0); Lymphocyte # 2.05 X10^3/ul (0.83-4.51); Lymphocyte % 18.5 % (19-41); Mean Corpuscular Hgb 27.5 pg (27.0-32.0); Mean Corpuscular Volume 85.8 fL (81-99); Mean Platelet Vol. 9.8 fl (6.2-12.0); Monocyte# 0.97 X10^3/uL; Monocyte% 8.8 % (0-10); NRBC Flagged by Analyzer 0 % (0-5); Neutrophil # 7.82 X10^3/uL (2.7-7.7); Neutrophil % 70.6 % (47-70); Platelet Count 251 K/mm3 (150-450); RBC Distribution Width CV 13.2 % (11.6-14.6); Red Blood Count 5.28 M/mm3 (4.2-5.4); White Blood Count 11.1 K/mm3 (4.4-11.0)
[2022-06-25 11:49] LABS: Thyroid Stim Hormone (TSH) 1.88 uIU/mL (0.358-3.74)
--- NOTE | 2022-06-26 07:29 | PCM.PSN.6M ---
PSN 6 Minute Walk Test 6 Minute Walk Test 6 Minute Walk Test: 6 Minute Walk Test PSN:6-Minute Walk Test Start: 06/25/22 09:10 Freq: Status: Active Protocol: RESP.6MINW Document 06/25/22 09:10 [facility] (Rec: 06/25/22 09:17 [facility] [id number]) 6 Minute Walk Test Date Performed 06/25/22 Time Performed 08:30 Height 5 ft 9 in Weight: 270 lb Weight in Pounds 270.[address]: Lorenzo Brown Assistive device used: None Pre-test Oxygen Delivery Method Room Air Pulse Ox (%) 94 Pulse Rate (60-100 beats/min) 111 H Dyspnea Kelly Scale (0-10) 0 1st minute Oxygen Delivery Method Room Air Pulse Ox (%) 90 Pulse Rate (60-100 beats/min) 110 H Dyspnea Kelly Scale (0-10) 0 Number of Rests Taken 0 2nd minute Oxygen Delivery Method Room Air Pulse Ox (%) 85 Pulse Rate (60-100 beats/min) 113 H Dyspnea Kelly Scale (0-10) 1 Number of Rests Taken 1 3rd minute Oxygen Flow Rate (L/min) (L/min) 2 Oxygen Delivery Method Nasal Cannula Pulse Ox (%) 94 Pulse Rate (60-100 beats/min) 116 H Dyspnea Kelly Scale (0-10) 1 Number of Rests Taken 0 4th minute Oxygen Flow Rate (L/min) (L/min) 2 Oxygen Delivery Method Nasal Cannula Pulse Ox (%) 84 Pulse Rate (60-100 beats/min) 120 H Dyspnea Kelly Scale (0-10) 1 Number of Rests Taken 1 5th minute Oxygen Flow Rate (L/min) (L/min) 3 Oxygen Delivery Method Nasal Cannula Pulse Ox (%) 93 Pulse Rate (60-100 beats/min) 122 H Dyspnea Kelly Scale (0-10) 2 Number of Rests Taken 0 Reported Symptoms Increased Work of Breathing 6th minute Oxygen Flow Rate (L/min) (L/min) 3 Oxygen Delivery Method Nasal Cannula Pulse Ox (%) 88 Pulse Rate (60-100 beats/min) 124 H Dyspnea Kelly Scale (0-10) 2 Number of Rests Taken 0 Reported Symptoms Increased Work of Breathing Post-test Oxygen Flow Rate (L/min) (L/min) 3 Oxygen Delivery Method Nasal Cannula Pulse Ox (%) 97 Pulse Rate (60-100 beats/min) 113 H Dyspnea Kelly Scale (0-10) 0 Full Laps Walked 14 Partial Lap, Number of Tiles Walked 24 Total Distance Walked (ft) 850 06/25/22 09:13 Cardiopulmonary Services by Xiomara Yates CLIFTON IS ON OXYGEN AT HOME. SHE BROUGHT POC DEVICE WITH HER FOR TESTING AND WAS ON RA FOR 10 MINUTES PRIOR TO BEGINNING WALK. ONLY 2 BRIEF REST BREAKS WERE TAKEN TO APPLY, THEN INCREASE OXYGEN LITER FLOW AND LET HER SPO2 RECOVER BEFORE CONTINUING WALK. HER SPO2 WAS MORE STABLE WHEN SHE DID NOT TALK WHILE WALKING, ALTHOUGH AT END OF TESTING SHE STILL WAS 88% ON 3LPM. Initialized on 06/25/22 09:13 - END OF NOTE Interpretation Interpretation: The patient ambulated 850 feet over the course of 6 minutes beginning on room air without assistive devices. Pretesting oxygen saturation was noted to be 94% on room air. With ambulation, the patient desaturated on several occasions requiring 3 L/min of supplemental oxygen to maintain appropriate saturations with exertion. Recommendations Recommendations: 3 L/min of supplemental oxygen should be utilized with exertion.
== END | disposition home or self-care (01) ==
PROVIDERS: PCP Family Medicine; Referring Provider Nurse Practitioner Gerontology; Visit Provider Nurse Practitioner Gerontology
DX: I10 Essential (primary) hypertension (principal); R53.83 Other fatigue; J98.4 Other disorders of lung; G47.33 Obstructive sleep apnea (adult) (pediatric)
CPT/HCPCS: 36415; 84443; 85025; 93306; 94618; Q9957; A4216; C8929

== ENCOUNTER → 2022-08-14 | Outpatient (CLI) | payer MEDICARE, SELFPAY ==
--- NOTE | 2022-08-14 08:56 | RDU_ITS ---
Reason For Study: Hypertension Right Renal Artery Left Renal Artery Right renal artery ostium 85.3/10.5 Left renal artery ostium 162.4/51.6 RSV/EDV. PSV/EDV. Right renal artery proximal 71/16 Left renal artery proximal PSV/EDV PSV/EDV. 158.4/61.7 . Right renal artery mid 53.4/12.7 Left renal artery mid 153/52.2 PSV/EDV. PSV/EDV . Right renal artery distal 68.8/12.7 Left renal artery distal 88.6/23.7 PSV/EDV. PSV/EDV. Right Renal Parenchyma Left Renal Parenchyma Upper Pole Medula 24.7/7.2 PSV/EDV. Left upper pole medulla 23.2/8.9 Right upper pole medulla EDR 0.3 . PSV/EDV . Right upper pole medulla R.I. Left upper pole medulla EDR 0.4 . 0.71 . Left upper pole medulla R.I. 0.62 . Upper [place] Cortx 15.1/5.1 PSV/EDV. UP Cortex 17.6/5.3 PSV/EDV. Right upper pole cortex EDR 0.3 . Left upper pole cortex EDR 0.3 . Right upper pole cortex R.I. 0.66 . Left upper pole cortex R.I. 0.70 . Right lower Pole medulla 20.3/5.9 Left lower Pole medulla 22.3/8.1 PSV/EDV . PSV/EDV . Right lower pole medulla EDR 0.3 . Left lower pole medulla EDR 0.64 . Right lower pole medulla R.I. Left lower pole medulla R.I. 0.64 . 0.71 . Lower Pole Cortx 13.8/4.8 PSV/EDV. Lower Pole Cortex 14.2/5.5 PSV/EDV. Left lower pole cortex EDR 0.3 . Right lower pole cortex EDR 0.4 . Left lower pole cortex R.I. 0.65 . Right lower pole cortex R.I. 0.61 . Left Renal Hilar Right Renal Hilar LT Hilar avg 56.6/16.9 PSV/EDV . Right Hilar avg 71/22.6 PSV/EDV. Left hilar acceleration time 40 Right hilar acceleration time 60 m/sec. m/sec. Left Renal Dimensions Right Renal Dimensions Left kidney size 11.73 cm . Right kidney size 11.67 cm . Left cortical dimension 1.71 cm . Right cortical dimension 1.88 cm . Aorta Unable to visualize aorta due to bowel gas and patient eating. VL/Renal Artery Duplex Ultrasound Interpretation Summary Right renal artery patent with normal velocities Left renal artery patent with normal velocities Right renal vein patent Left renal vein patent The right kidney is normal in size. The left kidney is normal in size. Ordering Physician: Norma Dunn Referring Physician: Asim Cohn Performed By: Krupa Chacko RVT
[2022-08-14 10:59] LABS: AST(SGOT) 64 U/L (15-37); Alanine Aminotransfer ALT/SGPT 96 U/L (13-56); Albumin, Serum 3.5 g/dL (3.2-5.0); Alkaline Phosphatase 97 U/L (45-117); Bilirubin, Direct 0.12 mg/dL (0.00-0.30); Cholesterol 195 mg/dL (200); Globulin 4.2 g/dL (2.2-4.2); High Density Lipoprotein 37 mg/dL; Protein, Total 7.7 g/dL (6.4-8.2); Triglycerides 189 mg/dL; Very Low Density Lipoprotein 38 mg/dL (5-40)
== END | disposition home or self-care (01) ==
PROVIDERS: PCP Family Medicine; Referring Provider Nurse Practitioner Gerontology; Visit Provider Nurse Practitioner Gerontology
DX: I10 Essential (primary) hypertension (principal); E78.5 Hyperlipidemia, unspecified
CPT/HCPCS: 36415; 80061; 80076; 93975

== ENCOUNTER 2022-09-11 08:08 | Emergency (ER) | payer MEDICARE, MEDICAID, SELFPAY ==
[2022-09-11 08:09] VITALS: BP 188/124; PULSE 100; RESP 18; TEMP 36.4; O2SAT 99; BMI 43.2
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
[2022-09-11] MEDS: Lidocaine 1% (20 ml mdv) 20 ML Vial INFILT (09:09)
== END 2022-09-11 09:12 | disposition home or self-care (01) ==
PROVIDERS: Emergency Provider Emergency Medicine; PCP Family Medicine; Visit Provider Emergency Medicine
DX: L02.31 Cutaneous abscess of buttock (principal); J44.9 Chronic obstructive pulmonary disease, unspecified; E11.40 Type 2 diabetes mellitus with diabetic neuropathy, unspecified; J96.11 Chronic respiratory failure with hypoxia; E66.01 Morbid (severe) obesity due to excess calories; E78.5 Hyperlipidemia, unspecified; G47.33 Obstructive sleep apnea (adult) (pediatric); Z79.899 Other long term (current) drug therapy; Z79.84 Long term (current) use of oral hypoglycemic drugs
CPT/HCPCS: 10060; 99284

== ENCOUNTER → 2022-10-08 | Outpatient (CLI) | payer MEDICARE, MEDICAID, SELFPAY ==
--- NOTE | 2022-10-08 11:15 | RAD_ITS ---
STUDY: X-RAY CHEST REASON FOR EXAM: Female, 41 years old. Cough. TECHNIQUE: Frontal and lateral views of the chest. COMPARISON: August 14, 2021. FINDINGS: Elevation of the left hemidiaphragm with linear opacity at the left base representing atelectasis/scarring or early/developing pneumonia. Patchy opacity at the right base medially representing atelectasis/scarring or early/developing pneumonia. Follow-up chest imaging to resolution recommended. There is no demonstrated pleural abnormality. Normal size heart. Normal mediastinum and cherelle. Normal visualized pulmonary arteries. Normal visualized aortic arch and descending thoracic aorta. Normal visualized thoracic spine. Normal visualized ribs, clavicles, and shoulders. There is no demonstrated abnormality of the visualized soft tissue structures of the upper abdomen. RAD/Chest PA and Lateral IMPRESSION: Elevation of the left hemidiaphragm with patchy opacities at both bases compatible with atelectasis/scarring or early/developing pneumonia. Follow-up chest imaging to resolution recommended. Electronically Signed: Casimiro Kiran, at 11:34 EST ,
[2022-10-08 11:55] LABS: BNP,B-Type NATRIURETIC PEPTIDE 83.2 pg/mL (0-100)
[2022-10-08 12:03] LABS: Anion Gap 6 (5-15); BUN 9 mg/dL (7-18); BUN/Creat Ratio 10.1 RATIO (10-20); Calcium,Total 8.7 mg/dL (8.5-10.1); Chloride 103 mmol/L (98-107); Creatinine, Serum 0.89 mg/dL (0.55-1.02); EST Glomerular Filtration Rate 74 mL/min (>60); Est Glom Filt Rate - Afr Amer 90 mL/min (>60); Glucose 138 mg/dL (74-106); Potassium 3.5 mmol/L (3.5-5.1); Sodium Level 137 mmol/L (136-145)
== END | disposition home or self-care (01) ==
LOC: LAB 10:32 → CVS 10:41
PROVIDERS: PCP Family Medicine; Referring Provider Nurse Practitioner Acute Care; Visit Provider Nurse Practitioner Acute Care
DX: R05.9 Cough, unspecified (principal); R06.02 Shortness of breath; I10 Essential (primary) hypertension
CPT/HCPCS: 36415; 71046; 80048; 83880; 93788; 94667

== ENCOUNTER 2022-10-20 07:52 | Emergency (ER) | payer MEDICARE, MEDICAID, SELFPAY ==
[2022-10-20 07:53] VITALS: BP 191/112; PULSE 107; RESP 18; TEMP 36.9; O2SAT 95; BMI 42.8
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
--- NOTE | 2022-10-20 08:40 | CT_ITS ---
STUDY: CT ABDOMEN AND PELVIS WITH CONTRAST REASON FOR EXAM: Female, 41 years old. Abdominal pain -- IV PO Contrast. Vaginal bleeding. RADIATION DOSAGE (If Supplied By Facility): CTDIvol = ( 15.42 ) mGy, DLP = ( 1422.95 ) mGycm TECHNIQUE: Transaxial images were obtained from the dome of the diaphragm to the symphysis pubis with oral contrast. Oral and amp; IV Gastrografin and amp; 100mL Isovue-300 was administered. Sagittal and coronal images were reconstructed. Individualized dose optimization techniques were used for this CT. COMPARISON: Comparison is made with prior study dated 10/18/2009. FINDINGS: Stable eventration of the left hemidiaphragm. Mild increased markings at the left lung base suggestive of scarring. The visualized portions of the heart are within normal limits. Normal liver. Normal gallbladder and extrahepatic biliary system. 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 Normal pancreas. Normal bilateral adrenal glands. Normal right kidney. Normal left kidney. Normal visualized stomach. Normal small intestine. There are scattered colonic diverticula consistent with diverticulosis. The appendix is visualized and appears normal. Normal abdominal aorta. Normal inferior vena cava. Normal retroperitoneum. Normal urinary bladder. Tubal ligation clips are seen bilaterally. A 2.1 cm cyst is seen in the right ovary. Normal abdominal wall. Normal osseous structures. 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 Scattered sigmoid diverticula. Small right ovarian cyst. Electronically Signed: Mil Spain MD at 11:20 EST ,
[2022-10-20 09:11] LABS: Bacteria 0 SEEN /hpf (None Seen); Mucous, Urine 0 SEEN /hpf (<or=2+); Squamous Epithelial Cells - UA 0 SEEN /hpf (5-10); White Blood Cells 0 SEEN /hpf (0-5)
[2022-10-20 09:15] LABS: Absolute Lymphocyte Count 1.86 X10^3/uL (0.83-4.51); Absolute Neutrophil Count 6.4 X10^3/uL (2.0-7.7); Basophil# 0.02 X10^3/uL; Basophil% 0.2 % (0-1); Eosinophil# 0.11 X10^3/uL; Eosinophils% 1.2 % (0-5); Hemoglobin 14.5 g/dL (12.0-15.0); Lymphocyte # 1.86 X10^3/ul (0.83-4.51); Mean Corp Hgb Conc 32.2 g/dL (32-36); Mean Corpuscular Hgb 27.7 pg (27.0-32.0); Mean Corpuscular Volume 85.9 fL (81-99); Mean Platelet Vol. 9.8 fl (6.2-12.0); Monocyte# 0.88 X10^3/uL; Monocyte% 9.4 % (0-10); NRBC Flagged by Analyzer 0 % (0-5); Neutrophil # 6.41 X10^3/uL (2.7-7.7); Neutrophil % 68.8 % (47-70); Platelet Count 167 K/mm3 (150-450); RBC Distribution Width CV 13.1 % (11.6-14.6); RBC Distribution Width SD 40.7 fl (35.1-43.9); Red Blood Count 5.24 M/mm3 (4.2-5.4); White Blood Count 9.3 K/mm3 (4.4-11.0)
[2022-10-20 09:20] VITALS: BP 163/83; BP 165/110; BP 181/113; PULSE 101; PULSE 79; PULSE 82
[2022-10-20 09:25] LABS: Color, Urine Red (Yellow); Glucose, Dipstick 100 mg/dl (Normal); Ketone-Dipstick 15 mg/dl (Negative); Leukocyte Esterase-Dipstick 25 /ul (Negative); Nitrite-Dipstick Positive (Negative); Occult Blood-Urine 250 /ul (Negative); Protein-Dipstick 500 mg/dl (Negative); Specific Gravity, Urine 1.025 (1.002-1.030); Urine Clarity Turbid (Clear); Urine Urobilinogen Normal (Normal); Urine pH 6.5 (5.0 - 8.0)
[2022-10-20 09:29] LABS: Partial Thromboplast Time 25.5 Seconds (24.1-36.2); Prothrombin Time (Protime)PT. 13.3 SECONDS (11.7-14.9)
[2022-10-20 09:31] LABS: Albumin, Serum 3.3 g/dL (3.2-5.0); BUN 16 mg/dL (7-18); BUN/Creat Ratio 17.8 RATIO (10-20); EST Glomerular Filtration Rate 74 mL/min (>60); Est Glom Filt Rate - Afr Amer 89 mL/min (>60); Estimated Creatinine Clearance 78.56 ml/min; Glucose 201 mg/dL (74-106); Protein, Total 7.5 g/dL (6.4-8.2)
[2022-10-20 09:32] LABS: ALB/GLOB Ratio 0.8 RATIO (0.9-2.4); AST(SGOT) 26 U/L (15-37); Alanine Aminotransfer ALT/SGPT 54 U/L (13-56); Alkaline Phosphatase 91 U/L (45-117); Anion Gap 6 (5-15); Calcium,Total 8.6 mg/dL (8.5-10.1); Chloride 103 mmol/L (98-107); Globulin 4.2 g/dL (2.2-4.2); Internal QC Validated? YES +Cl - CLEAR BKGD; Potassium 3.5 mmol/L (3.5-5.1); Pregnancy, Serum, hCG Quali. NEGATIVE Negative; Sodium Level 137 mmol/L (136-145)
[2022-10-20 09:34] LABS: Urine Bilirubin Dipstick 1 mg/dL (Negative)
[2022-10-20 09:36] LABS: Red Blood Cells-Urine > 100 SEEN /hpf (0-5)
[2022-10-20 09:53] VITALS: O2SAT 96
[2022-10-20 10:12] VITALS: BP 169/114; PULSE 89; RESP 18; O2SAT 98
[2022-10-20] MEDS: Morphine 4 MG/ML Syringe IV ×2 (10:33→12:54)
[2022-10-20 12:55] VITALS: BP 145/102; PULSE 95; RESP 18; O2SAT 98
[2022-10-20 13:11] LABS: Absolute Lymphocyte Count 2.06 X10^3/uL (0.83-4.51); Absolute Neutrophil Count 6.9 X10^3/uL (2.0-7.7); Basophil# 0.02 X10^3/uL; Basophil% 0.2 % (0-1); Eosinophil# 0.09 X10^3/uL; Eosinophils% 0.9 % (0-5); Hematocrit 43.4 % (37-47); Hemoglobin 14.2 g/dL (12.0-15.0); Lymphocyte # 2.06 X10^3/ul (0.83-4.51); Lymphocyte % 20.8 % (19-41); Mean Corp Hgb Conc 32.7 g/dL (32-36); Mean Corpuscular Hgb 28.2 pg (27.0-32.0); Mean Corpuscular Volume 86.1 fL (81-99); Mean Platelet Vol. 9.3 fl (6.2-12.0); Monocyte# 0.79 X10^3/uL; NRBC Flagged by Analyzer 0 % (0-5); Neutrophil # 6.88 X10^3/uL (2.7-7.7); Neutrophil % 69.6 % (47-70); Platelet Count 165 K/mm3 (150-450); RBC Distribution Width CV 13.1 % (11.6-14.6); RBC Distribution Width SD 40.7 fl (35.1-43.9); Red Blood Count 5.04 M/mm3 (4.2-5.4); White Blood Count 9.9 K/mm3 (4.4-11.0)
[2022-10-20] MEDS: Megestrol 40 MG Tablet PO (13:16)
== END 2022-10-20 14:01 | disposition home or self-care (01) ==
PROVIDERS: Emergency Provider Emergency Medicine; PCP Family Medicine; Visit Provider Emergency Medicine
DX: N93.9 Abnormal uterine and vaginal bleeding, unspecified (principal); J44.9 Chronic obstructive pulmonary disease, unspecified; E11.9 Type 2 diabetes mellitus without complications; E78.5 Hyperlipidemia, unspecified; R31.9 Hematuria, unspecified; R30.0 Dysuria; E66.9 Obesity, unspecified
CPT/HCPCS: 36415; 74177; 80053; 81001; 84703; 85025; 85610; 85730; 96374; 96376; 99285; Q9967; A4216

== ENCOUNTER → 2022-10-26 | Outpatient (CLI) | payer MEDICARE, MEDICAID, SELFPAY ==
[2022-10-29 04:07] LABS: Chlamydia By Nucleic Acid AMP Negative (Negative)
[2022-10-29 19:12] LABS: Gonococcus By Nucleic Acid AMP Negative (Negative)
== END | disposition home or self-care (01) ==
LOC: LABSPEC 16:03
PROVIDERS: PCP Family Medicine; Referring Provider Nurse Practitioner Women's Health; Visit Provider Nurse Practitioner Women's Health
DX: N89.8 Other specified noninflammatory disorders of vagina (principal); Z11.3 Encounter for screening for infections with a predominantly sexual mode of transmission
CPT/HCPCS: 87070; 87077; 87205; 87491; 87591

== ENCOUNTER → 2022-10-30 | Outpatient (CLI) | payer MEDICARE, MEDICAID, SELFPAY ==
[2022-10-30 12:44] VITALS: PULSE 106; PULSE 111; PULSE 118; PULSE 121; PULSE 123; PULSE 124; PULSE 136; O2SAT 85; O2SAT 91; O2SAT 93; O2SAT 94; O2SAT 95; O2SAT 96; O2SAT 97
--- NOTE | 2022-10-30 12:49 | CPS ---
PATIENT ARRIVED ON POC AT 2LPM DEMAND FLOW. PLACED ON RA PRIOR TO TESTING. SHE MET CRITERIA FOR OXYGEN USE AT 3MINUTES WITH SPO2 AT 85% RA. REST TAKEN TO PLACE ON OWN DEVICE AT 2LPM. SHE WAS ABLE TO MAINTAIN SPO2 IN MID 90'S RANGE FOR DURATION OF TESTING. MILD INCREASE IN WOB AND TACHYCARDIA NOTED, ASYMPTOMATIC OTHERWISE. PATIENT AMBULATED 863FT. [facility] IS HER DME.
--- NOTE | 2022-10-31 07:44 | WT_ITS ---
PSN 6 Minute Walk Test 6 Minute Walk Test 6 Minute Walk Test: 6 Minute Walk Test PSN:6-Minute Walk Test Start: 10/30/22 12:43 Freq: Status: Active Protocol: RESP.6MINW Document 10/30/22 12:44 [facility] (Rec: 10/30/22 12:44 [facility] [id number]) 6 Minute Walk Test Date Performed 10/30/22 Time Performed 12:30 Height 5 ft 9 in Weight: 264 lb 8.875 oz Weight in Pounds 264.[address]: Lorenzo Brown Assistive device used: None Pre-test Oxygen Delivery Method Room Air Pulse Ox (%) 96 Pulse Rate (60-100 beats/min) 106 H Dyspnea Kelly Scale (0-10) 0 1st minute Oxygen Delivery Method Room Air Pulse Ox (%) 91 Pulse Rate (60-100 beats/min) 118 H Dyspnea Kelly Scale (0-10) 2 Number of Rests Taken 0 Reported Symptoms Increased Work of Breathing 2nd minute Oxygen Delivery Method Room Air Pulse Ox (%) 91 Pulse Rate (60-100 beats/min) 124 H Dyspnea Kelly Scale (0-10) 3 Number of Rests Taken 0 Reported Symptoms Increased Work of Breathing 3rd minute Oxygen Delivery Method Room Air Pulse Ox (%) 85 Pulse Rate (60-100 beats/min) 136 H Dyspnea Kelly Scale (0-10) 3 Number of Rests Taken 1 Reported Symptoms Increased Work of Breathing 4th minute Oxygen Flow Rate (L/min) (L/min) 2 Oxygen Delivery Method Nasal Cannula Pulse Ox (%) 95 Pulse Rate (60-100 beats/min) 121 H Dyspnea Kelly Scale (0-10) 3 Number of Rests Taken 0 Reported Symptoms Increased Work of Breathing 5th minute Oxygen Flow Rate (L/min) (L/min) 2 Oxygen Delivery Method Nasal Cannula Pulse Ox (%) 94 Pulse Rate (60-100 beats/min) 123 H Dyspnea Kelly Scale (0-10) 3 Number of Rests Taken 0 Reported Symptoms Increased Work of Breathing 6th minute Oxygen Flow Rate (L/min) (L/min) 2 Oxygen Delivery Method Nasal Cannula Pulse Ox (%) 93 Pulse Rate (60-100 beats/min) 121 H Dyspnea Kelly Scale (0-10) 3 Number of Rests Taken 0 Reported Symptoms Increased Work of Breathing Post-test Oxygen Flow Rate (L/min) (L/min) 2 Oxygen Delivery Method Nasal Cannula Pulse Ox (%) 97 Pulse Rate (60-100 beats/min) 111 H Dyspnea Kelly Scale (0-10) 0 Full Laps Walked 14 Partial Lap, Number of Tiles Walked 37 Total Distance Walked (ft) 863 10/30/22 12:49 Cardiopulmonary Services by Xiomara Yates PATIENT ARRIVED ON POC AT 2LPM DEMAND FLOW. PLACED ON RA PRIOR TO TESTING. SHE MET CRITERIA FOR OXYGEN USE AT 3MINUTES WITH SPO2 AT 85% RA. REST TAKEN TO PLACE ON OWN DEVICE AT 2LPM. SHE WAS ABLE TO MAINTAIN SPO2 IN MID 90'S RANGE FOR DURATION OF TESTING. MILD INCREASE IN WOB AND TACHYCARDIA NOTED, ASYMPTOMATIC OTHERWISE. PATIENT AMBULATED 863FT. [facility] IS HER DME. Initialized on 10/30/22 12:49 - END OF NOTE Interpretation Interpretation: The patient ambulated 863 feet over the course of 6 minutes beginning on room air without assistive devices. Pretesting oxygen saturation was noted to be 96% on room air. With ambulation, the shayne oxygen saturation was 85%. 2 L/min of supplemental oxygen was applied, and the patient was able to complete the r emainder of the test while maintaining appropriate oxygen saturations. Recommendations Recommendations: 2 L/min of supplemental oxygen should be utilized with exertion.
== END | disposition home or self-care (01) ==
LOC: PSN 12:11
PROVIDERS: PCP Family Medicine; Visit Provider Internal Medicine Critical Care Medicine
DX: J96.11 Chronic respiratory failure with hypoxia (principal)
CPT/HCPCS: 94618

== ENCOUNTER → 2022-11-04 | Outpatient (CLI) | payer MEDICARE, MEDICAID, SELFPAY ==
--- NOTE | 2022-11-04 12:37 | US_ITS ---
STUDY: ULTRASOUND OF THE FEMALE PELVIS - COMPLETE REASON FOR EXAM: Female, 42 years old. Bleeding LMP: Postmenopausal. TECHNIQUE: Transabdominal and Transvaginal TECHNICAL QUALITY: Adequate. COMPARISON: Comparison is made with prior CT scan of the abdomen and pelvis dated 10/20/2022. FINDINGS: The uterus is anteverted and is in a midline position. The uterus measures 8 cm x 4.9 cm x 4.9 cm. Normal uterine cervix. The endometrium is thickened for the postmenopausal state and measures 8 mm in thickness, and is hyperechoic. There is no demonstrated endometrial mass. There is no demonstrated myometrial mass. I.U.D. - The patient does not have an I.U.D. The right ovary is visualized. The right ovary measures 2.3 cm x 2.1 cm x 1.7 cm. There is no right ovarian cyst or ovarian mass. There is no visualized right adnexal mass or complex lesion. There is normal arterial and normal venous vascularity. The left ovary is visualized. The left ovary measures 2.7 cm x 1.7 cm x 1.8 cm. There is no left ovarian cyst or ovarian mass. There is no visualized left adnexal mass or complex lesion. There is normal arterial and normal venous vascularity. There is no fluid in the cul-de-sac. The pre void volume of the bladder was 14.1 ml. US/Pelvic (Non ) IMPRESSION: Endometrial thickening for the patient''s postmenopausal state. Electronically Signed: Mil Spain MD at 15:37 EST ,
--- NOTE | 2022-11-04 12:37 | US_ITS ---
STUDY: ULTRASOUND OF THE FEMALE PELVIS - COMPLETE REASON FOR EXAM: Female, 42 years old. Bleeding LMP: Postmenopausal. TECHNIQUE: Transabdominal and Transvaginal TECHNICAL QUALITY: Adequate. COMPARISON: Comparison is made with prior CT scan of the abdomen and pelvis dated 10/20/2022. FINDINGS: The uterus is anteverted and is in a midline position. The uterus measures 8 cm x 4.9 cm x 4.9 cm. Normal uterine cervix. The endometrium is thickened for the postmenopausal state and measures 8 mm in thickness, and is hyperechoic. There is no demonstrated endometrial mass. There is no demonstrated myometrial mass. I.U.D. - The patient does not have an I.U.D. The right ovary is visualized. The right ovary measures 2.3 cm x 2.1 cm x 1.7 cm. There is no right ovarian cyst or ovarian mass. There is no visualized right adnexal mass or complex lesion. There is normal arterial and normal venous vascularity. The left ovary is visualized. The left ovary measures 2.7 cm x 1.7 cm x 1.8 cm. There is no left ovarian cyst or ovarian mass. There is no visualized left adnexal mass or complex lesion. There is normal arterial and normal venous vascularity. There is no fluid in the cul-de-sac. The pre void volume of the bladder was 14.1 ml. US/Transvaginal Non- IMPRESSION: Endometrial thickening for the patient''s postmenopausal state. Electronically Signed: Mil Spain MD at 15:37 EST ,
== END | disposition home or self-care (01) ==
PROVIDERS: PCP Family Medicine; Referring Provider Nurse Practitioner Women's Health; Visit Provider Nurse Practitioner Women's Health
DX: N93.9 Abnormal uterine and vaginal bleeding, unspecified (principal)
CPT/HCPCS: 76830; 76856

== ENCOUNTER → 2022-11-09 | Outpatient (CLI) | payer MEDICARE, MEDICAID, SELFPAY ==
--- NOTE | 2022-11-09 | EMB_PTH ---
PATIENT: CLIFTON SARAH LOC: [facility] U#:[id number] AGE/SX: 42/F ROOM: RE11/09/[address]: OSMANY Sousa : 1980 BED: DIS: 11/09/2022 SPEC #: [id number] RECD: 11/09/22 12:59 STATUS: CINDY LUCIEN #: [id number] TORREY: 11/09/22 00:[address]: Felicia Gonzalez NP DEPT: SURGICAL PATHOLOGY RECD BY: Luz Escobar ENTERED: 11/09/22 14:03 SP TYPE: ENDOM BX/C MAUREEN DR: Asim Cohn Tissues: Endometrium, NOS Procedures: Surgery Specimen Level IV HEADER OPERATION: Endometrial biopsy PRE-OP DIAGNOSIS: Abnormal uterine bleeding TISSUE SUBMITTED: Endometrial tissue MICROSCOPIC DIAGNOSIS Endometrial biopsy: Consistent with exogenous hormone effects. See comment. ЮЛИЯ:salvador 11/10/2022 COMMENT Clinical correlation and appropriate follow up are necessary. MICROSCOPIC DESCRIPTION Slides are reviewed. GROSS DESCRIPTION Received is one container labeled with the patient's name and not further designated. The specimen consists of multiple irregular fragments of lakhani-pink soft tissue that in aggregate measure 3 x 2.5 x 0.3 cm. The specimen is totally submitted in one cassette. / SJ:salvador 11/09/2022 TC:5 [facility]: [id number]
== END | disposition home or self-care (01) ==
PROVIDERS: PCP Family Medicine; Referring Provider Nurse Practitioner Women's Health; Visit Provider Nurse Practitioner Women's Health
DX: N93.9 Abnormal uterine and vaginal bleeding, unspecified (principal)
CPT/HCPCS: 88305

== ENCOUNTER 2022-11-27 09:31 | Emergency (ER) | payer MEDICARE, MEDICAID, SELFPAY ==
[2022-11-27 09:32] VITALS: BP 194/128; PULSE 96; RESP 22; TEMP 35.6; O2SAT 96; BMI 38.7
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
[2022-11-27 10:10] LABS: Absolute Lymphocyte Count 1.27 X10^3/uL (0.83-4.51); Absolute Neutrophil Count 4.4 X10^3/uL (2.0-7.7); Basophil# 0.04 X10^3/uL; Basophil% 0.6 % (0-1); Eosinophil# 0.13 X10^3/uL; Hematocrit 40.6 % (37-47); Hemoglobin 13.5 g/dL (12.0-15.0); Lymphocyte # 1.27 X10^3/ul (0.83-4.51); Lymphocyte % 19.5 % (19-41); Mean Corp Hgb Conc 33.3 g/dL (32-36); Mean Corpuscular Hgb 28.1 pg (27.0-32.0); Mean Corpuscular Volume 84.6 fL (81-99); Mean Platelet Vol. 9.7 fl (6.2-12.0); Monocyte# 0.69 X10^3/uL; Monocyte% 10.6 % (0-10); NRBC Flagged by Analyzer 0 % (0-5); Neutrophil # 4.36 X10^3/uL (2.7-7.7); Neutrophil % 66.8 % (47-70); Platelet Count 201 K/mm3 (150-450); RBC Distribution Width CV 13.4 % (11.6-14.6); RBC Distribution Width SD 41.2 fl (35.1-43.9); White Blood Count 6.5 K/mm3 (4.4-11.0)
[2022-11-27 10:23] VITALS: BP 180/106; BP 180/112; BP 187/109; PULSE 100; PULSE 86; PULSE 87
[2022-11-27 10:23] LABS: BUN 8 mg/dL (7-18); Creatinine, Serum 0.96 mg/dL (0.55-1.02); EST Glomerular Filtration Rate 68 mL/min (>60); Estimated Creatinine Clearance 81.41 ml/min; Glucose 187 mg/dL (74-106)
[2022-11-27 10:24] LABS: Anion Gap 6 (5-15); BUN/Creat Ratio 8.3 RATIO (10-20); Calcium,Total 9.2 mg/dL (8.5-10.1); Chloride 104 mmol/L (98-107); Est Glom Filt Rate - Afr Amer 83 mL/min (>60); Potassium 3.5 mmol/L (3.5-5.1); Sodium Level 137 mmol/L (136-145)
--- NOTE | 2022-11-27 11:30 | RAD_ITS ---
STUDY: X-RAY CHEST REASON FOR EXAM: Female, 42 years old. Sob, high BP TECHNIQUE: PA and lateral views of the chest. COMPARISON: Comparison is made with prior study dated 10/08/2022. FINDINGS: Stable elevation of the left hemidiaphragm. Pectus carinatum deformity. The lungs are clear and expanded. There is no demonstrated pleural abnormality. Normal size heart. Normal mediastinum and cherelle. Normal visualized pulmonary arteries. Normal visualized aortic arch and descending thoracic aorta. Normal visualized thoracic spine. Normal visualized ribs, clavicles, and shoulders. There is no demonstrated abnormality of the visualized soft tissue structures of the upper abdomen. RAD/Chest PA and Lateral IMPRESSION: No acute abnormality is seen. Rectus excavatum deformity. Electronically Signed: Mil Spain MD at 11:55 EST ,
[2022-11-27] MEDS: Furosemide 40 MG/4 ML Vial IV (11:39)
[2022-11-27] MEDS: hydrALAZINE 20 MG/ML Vial IV (11:39)
[2022-11-27 11:42] VITALS: BP 180/106; PULSE 87; RESP 20; O2SAT 95
[2022-11-27 12:30] VITALS: BP 174/90; PULSE 82; RESP 19; O2SAT 95
[2022-11-27 12:41] VITALS: BP 174/90; PULSE 82; RESP 19; O2SAT 96
== END 2022-11-27 12:42 | disposition home or self-care (01) ==
PROVIDERS: Emergency Provider Emergency Medicine; PCP Family Medicine; Visit Provider Emergency Medicine
DX: N93.8 Other specified abnormal uterine and vaginal bleeding (principal); J44.9 Chronic obstructive pulmonary disease, unspecified; E11.9 Type 2 diabetes mellitus without complications; E78.5 Hyperlipidemia, unspecified; E66.9 Obesity, unspecified
CPT/HCPCS: 71046; 80048; 85025; 86850; 86900; 86901; 96374; 96375; 99284; A4216; J1940

== ENCOUNTER → 2023-01-29 | Outpatient (CLI) | payer MEDICARE, MEDICAID, SELFPAY ==
[2023-01-29 09:06] LABS: Absolute Lymphocyte Count 3.46 X10^3/uL (0.83-4.51); Absolute Neutrophil Count 5.4 X10^3/uL (2.0-7.7); Basophil# 0.05 X10^3/uL; Basophil% 0.5 % (0-1); Hematocrit 44.2 % (37-47); Hemoglobin 14.9 g/dL (12.0-15.0); Lymphocyte # 3.46 X10^3/ul (0.83-4.51); Lymphocyte % 34.8 % (19-41); Mean Corp Hgb Conc 33.7 g/dL (32-36); Mean Corpuscular Hgb 27.8 pg (27.0-32.0); Mean Corpuscular Volume 82.5 fL (81-99); Mean Platelet Vol. 9.7 fl (6.2-12.0); Monocyte# 0.93 X10^3/uL; Monocyte% 9.4 % (0-10); NRBC Flagged by Analyzer 0 % (0-5); Neutrophil # 5.35 X10^3/uL (2.7-7.7); Neutrophil % 53.9 % (47-70); Platelet Count 343 K/mm3 (150-450); RBC Distribution Width CV 13.4 % (11.6-14.6); RBC Distribution Width SD 39.7 fl (35.1-43.9); Red Blood Count 5.36 M/mm3 (4.2-5.4); White Blood Count 9.9 K/mm3 (4.4-11.0)
[2023-01-29 09:42] LABS: Estradiol 26.4 pg/mL; Follicle Stimulating Hormone 8.3 mIU/mL; T4 Free Direct 1.14 ng/dL (0.76-1.46); Thyroid Stim Hormone (TSH) 2.34 uIU/mL (0.358-3.74)
== END | disposition home or self-care (01) ==
LOC: PAVLAB 08:55
PROVIDERS: PCP Family Medicine; Referring Provider Obstetrics & Gynecology; Visit Provider Obstetrics & Gynecology
DX: J45.50 Severe persistent asthma, uncomplicated (principal); I50.9 Heart failure, unspecified; N92.1 Excessive and frequent menstruation with irregular cycle
CPT/HCPCS: 36415; 82670; 83001; 84439; 84443; 85025

== ENCOUNTER 2023-02-02 10:56 | Day surgery (SDC) | payer MEDICARE, MEDICAID, SELFPAY ==
[2023-02-02] VITALS (13 sets, daily range): BP systolic 147–176; BP diastolic 95–111; PULSE 72–104; RESP 16–18; TEMP 36.8–37.3; O2SAT 99–100; BMI 36.6
[2023-02-02] MEDS: Lactated Ringers 1,000 ML 15 ML IV (12:47)
[2023-02-02 13:33] LABS: AST(SGOT) 20 U/L (15-37); Alanine Aminotransfer ALT/SGPT 42 U/L (13-56); Albumin, Serum 4.1 g/dL (3.2-5.0); Alkaline Phosphatase 85 U/L (45-117); Anion Gap 9 (5-15); BUN 10 mg/dL (7-18); BUN/Creat Ratio 10.5 RATIO (10-20); Calcium,Total 9.6 mg/dL (8.5-10.1); Chloride 100 mmol/L (98-107); Creatinine, Serum 0.95 mg/dL (0.55-1.02); EST Glomerular Filtration Rate 69 mL/min (>60); Est Glom Filt Rate - Afr Amer 84 mL/min (>60); Estimated Creatinine Clearance 79.41 ml/min; Glucose 128 mg/dL (74-106); Potassium 3.8 mmol/L (3.5-5.1); Protein, Total 8.1 g/dL (6.4-8.2); Sodium Level 137 mmol/L (136-145)
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
[2023-02-02 13:40] LABS: Bedside Glucose 132 mg/dL (74-106)
[2023-02-02] MEDS: hydrALAZINE 50 MG Tablet PO (13:44)
--- NOTE | 2023-02-02 13:45 | EMB_PTH ---
PATIENT: CLIFTON SARAH LOC: [facility] [place][id number] AGE/SX: 42/F ROOM: RE02/02/[address]: Dr. Macy Vences MD : 1980 BED: DIS: 02/02/2023 SPEC #: [id number] RECD: 02/02/23 16:04 STATUS: CINDY NEWTONVickie #: [id number] TORREY: 02/02/23 13:[address]: Macy Vences DEPT: SURGICAL PATHOLOGY RECD BY: John De Leon ENTERED: 02/03/23 07:35 SP TYPE: ENDOM BX/C MAUREEN DR: Dr. 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 Focal disordered endometrium. Rare fragments of benign squamous mucosa. Rare fragments of benign endocervix with squamous metaplasia. AM:salvador 02/04/2023 MICROSCOPIC DESCRIPTION Slides are reviewed. GROSS DESCRIPTION Received in fixative is one container labeled with the patient's name and designated endometrial curettings. The specimen consists of multiple fragments of hemorrhagic soft tissue that in aggregate measure 5.0 x 3.0 x 0.3 cm. The specimen is totally submitted in two cassettes. / ЮЛИЯ:salvador 02/03/2023 TC:5 CPT: 25125
[2023-02-02] MEDS: Lidocaine 1% (30 ml sdv) 30 ML Vial (15:00)
--- NOTE | 2023-02-02 15:29 | PCM.OPRPT ---
Problems Associated Problem List Diagnoses (1) Menorrhagia with irregular cycle: Report of Operation Date of Procedure: 02/02/23 Pre-Operative Diagnosis: see problem list Post-Operative Diagnosis: same Surgery/Procedure Performed:: d and c hysteroscopy vanessa ablation Description of Surgical Findings:: nl uterine cavity Surgeon: Macy Vences maintenance and engineering manager: None Type of Anesthesia: Local MAC Special Medications: none Specimen's removed: emc Drains: none Estimated Blood Loss (mL): 50 Fluids Replaced: crystalloid Description of Procedure: Patient was prepped and draped in a normal sterile fashion under MAC anesthesia. A weighted speculum was placed in the vagina and the anterior lip of the cervix was grasped with a single-tooth tenaculum. A paracervical block was placed with 1% lidocaine. Cervix was progressively dilated to allow passage of a 5 mm hysteroscope. The lining was fully visualized and noted to have a thickened polypoid apperance . Uterine sounded to 8 cm. Curettage was performed and tissue removed , sent to pathology. The Vanessa device was opened and the cavity length was found to be 4.5 cm. Device was inserted into the uterus and balloon inflated and device deployed. Integrity of the cavity was confirmed and a 2 minute treatment cycle was completed without complication. All instruments were removed from the vagina and excellent hemostasis was noted. Patient was awoken and taken to recovery in stable condition. Grafts/Implants Used: none Complications none Admit VTE Documentation VTE Present on Admission: No VTE Mechan Device Prophylaxis: SCD's Multi Select Codes Urinary/Genital Urinary/Genital CPT Codes: 38969 Vanessa/Novasure
--- NOTE | 2023-02-02 15:30 | DCINST_ITS ---
Discharge Instructions Procedure D&C Diet Discharge Diet: No restrictions Activity Discharge Activity: Return to Normal Activity, May Shower and May Take a Tub Bath (after 1 week) May resume sexual activity in: 1-2 weeks Weight Bearing Status: Weight bearing as tolerated Lifting Restrictions: none Dressing / Incision Call your doctor if you observe: Fever of 101 or Higher, Using more than 1 pad per hour, Shortness of breath and Uncontrolled pain Follow Up Care Please Follow Up With: Macy Vences MD When: Call [phone] to schedule appointment. Test Results: Test results from this visit will be discussed in further detail at your follow- up appointment, if applicable. Discharge Plan Admission Attending Provider: Macy Vences Primary Care Provider: Asim Cohn Discharge Orders/Prescriptions Prescriptions: No Action gabapentin 100 mg capsule 100 mg PO TID Trulicity 0.75 mg/0.5 mL pen injector 0.75 mg subcut QWEEK spironolactone 50 mg tablet 50 mg PO DAILY trazodone 100 mg tablet 100 mg PO QHS PRN (Reason: Anxiety) fluoxetine 40 mg capsule 40 mg PO DAILY albuterol sulfate 90 mcg/actuation HFA aerosol inhaler 2 puff inhalation Q6H PRN (Reason: SOB) Qty: 8.5 11RF amlodipine 10 mg tablet 10 mg PO DAILY Qty: 60 11RF potassium chloride 20 mEq tablet,ER particles/crystals 20 meq PO BID Jardiance 25 mg tablet 25 mg PO DAILY levothyroxine 150 mcg capsule 150 mcg PO DAILY furosemide 40 mg tablet 40 mg PO BID (DME) blood pressure monitor [Blood Pressure Kit] Kit See Rx Instructions .Route Qty: 1 0RF Rx Instructions: As directed topiramate 50 mg capsule,sprinkle,ER 24hr 50 mg PO DAILY hydralazine 50 mg tablet 50 mg PO TID glipizide 5 mg tablet 5 mg PO BID doxazosin 8 mg tablet 12 mg PO DAILY Qty: 45 11RF benzonatate 200 mg capsule 200 mg PO TID PRN (Reason: cough) Qty: 90 0RF (DME) PEP device See Rx Instructions .ROUTE .MEDSUPPLY Qty: 1 0RF Rx Instructions: with training ipratropium-albuterol 0.5 mg-3 mg(2.5 mg base)/3 mL solution for nebulization 3 ml inhalation .QID PRN (Reason: SOB) Breo Ellipta 200-25 mcg/dose blister with device 1 inh inhalation DAILY Qty: 60 11RF montelukast 10 MG tablet 10 mg PO QHS Label Comments: ALLERGIES dicyclomine 10 mg capsule 10 mg PO TID pantoprazole 40 MG tablet 40 mg PO DAILY topiramate 100 mg capsule,extended release 24hr 100 mg PO QHS irbesartan 150 mg tablet 150 mg PO DAILY atorvastatin 40 mg tablet 40 mg PO QHS Qty: 30 11RF metoprolol succinate 100 mg tablet extended release 24 hr 100 mg PO DAILY Qty: 90 3RF megestrol 40 mg tablet 40 mg PO .COMPLEX Qty: 45 0RF Rx Instructions: 40 mg PO tid until bleeding stops then bid to finish RX; Referrals / Follow Up: Asim Cohn DO [Primary Care Provider] - Disposition Disposition (needs filled in before D/C Order can be placed): Home, Self Care
== END 2023-02-02 17:10 | disposition home or self-care (01) ==
LOC: SDC 10:57 → AC 10:59
PROVIDERS: PCP Family Medicine; Referring Provider Obstetrics & Gynecology; Visit Provider Obstetrics & Gynecology
PROC: 0U5B8ZZ Destruction of Endometrium, Via Natural or Artificial Opening Endoscopic (ICD-10-PCS; CPT 58558; principal; 2023-02-02 13:30)
DX: N87.9 Dysplasia of cervix uteri, unspecified (principal); J44.9 Chronic obstructive pulmonary disease, unspecified; I11.0 Hypertensive heart disease with heart failure; I50.9 Heart failure, unspecified; E11.43 Type 2 diabetes mellitus with diabetic autonomic (poly)neuropathy; J96.10 Chronic respiratory failure, unspecified whether with hypoxia or hypercapnia; E78.5 Hyperlipidemia, unspecified; E03.9 Hypothyroidism, unspecified; K21.9 Gastro-esophageal reflux disease without esophagitis; G47.33 Obstructive sleep apnea (adult) (pediatric); E66.9 Obesity, unspecified; Z68.38 Body mass index [BMI] 38.0-38.9, adult; Z99.81 Dependence on supplemental oxygen; Z79.890 Hormone replacement therapy; Z79.899 Other long term (current) drug therapy
CPT/HCPCS: 58563; 80053; 82962; 86850; 86900; 86901; 88305; 93005; J7120; J2405

== ENCOUNTER → 2023-02-19 | Outpatient (CLI) | payer MEDICARE, MEDICAID, SELFPAY | END | disposition home or self-care (01) | LOC: LABSPEC 15:31 | PROVIDERS: PCP Family Medicine; Referring Provider Obstetrics & Gynecology; Visit Provider Obstetrics & Gynecology | DX: R35.0 Frequency of micturition (principal); R30.0 Dysuria | CPT/HCPCS: 87077; 87086; 87088 ==

== ENCOUNTER 2023-04-27 16:47 | Emergency (ER) | payer MEDICARE, MEDICAID, SELFPAY ==
[2023-04-27 16:49] VITALS: BP 224/126; PULSE 112; RESP 18; TEMP 37; O2SAT 97; BMI 39.2
[2023-04-27 16:53] VITALS: BP 261/163; PULSE 114; RESP 34; O2SAT 99
--- NOTE | 2023-04-27 17:26 | CT_ITS ---
STUDY: CT BRAIN WITHOUT CONTRAST REASON FOR EXAM: Female, 42 years old. fall/trauma RADIATION DOSAGE (If Supplied By Facility): CTDIvol = ( 47.09 ) mGy, DLP = ( 837.39 ) mGycm TECHNIQUE: Transaxial CT imaging of the brain was performed without administration of intravenous contrast material. Individualized dose optimization techniques were used for this CT. COMPARISON: 08/14/2021 FINDINGS: Normal soft tissue structures. Normal calvarium. Normal size ventricles and extra-axial spaces for the patient''s age. Normal white matter tracts of the cerebral hemispheres. Normal basal ganglia and thalami. Normal brainstem. Normal cerebellum. There is no intracranial hemorrhage. There are no findings of an acute ischemic infarction. Normal visualized paranasal sinuses. CT/Brain/Head without Contrast IMPRESSION: Normal unenhanced CT scan of the brain. Electronically Signed: Dwight Ross MD at 18:58 EDT ,
--- NOTE | 2023-04-27 17:26 | EKG12_ITS ---
Test Reason : SYNCOPE Blood Pressure : / mmHG Vent. Rate : 106 BPM Atrial Rate : 106 BPM P-R Int : 174 ms QRS Dur : 072 ms QT Int : 340 ms P-R-T Axes : 066 061 050 degrees QTc Int : 451 ms Sinus tachycardia with Premature atrial complexes Biatrial enlargement Abnormal ECG Confirmed by YESENIA DIAZ, ROMEL ([id number]), loan expeditor ALYSIA HEBERT ([id number]) on 04/28/2023 2:26:56 PM Referred By: Confirmed By:ROMEL PATTERSON MD
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
[2023-04-27] MEDS: Acetaminophen 500 MG Tablet 1000 MG PO (17:39)
[2023-04-27 17:40] VITALS: BP 198/120
[2023-04-27 17:46] LABS: Absolute Lymphocyte Count 1.81 X10^3/uL (0.83-4.51); Absolute Neutrophil Count 8.1 X10^3/uL (2.0-7.7); Basophil# 0.04 X10^3/uL; Basophil% 0.4 % (0-1); Eosinophil# 0.05 X10^3/uL; Eosinophils% 0.5 % (0-5); Hematocrit 43.8 % (37-47); Hemoglobin 14.5 g/dL (12.0-15.0); Lymphocyte # 1.81 X10^3/ul (0.83-4.51); Lymphocyte % 16.9 % (19-41); Mean Corp Hgb Conc 33.1 g/dL (32-36); Mean Corpuscular Hgb 27.2 pg (27.0-32.0); Mean Platelet Vol. 9.8 fl (6.2-12.0); Monocyte# 0.68 X10^3/uL; Monocyte% 6.3 % (0-10); NRBC Flagged by Analyzer 0 % (0-5); Neutrophil % 75.6 % (47-70); Platelet Count 235 K/mm3 (150-450); RBC Distribution Width CV 12.8 % (11.6-14.6); RBC Distribution Width SD 37.9 fl (35.1-43.9); Red Blood Count 5.34 M/mm3 (4.2-5.4); White Blood Count 10.7 K/mm3 (4.4-11.0)
--- NOTE | 2023-04-27 17:48 | RAD_ITS ---
STUDY: X-RAY - RIGHT KNEE REASON FOR EXAM: Female, 42 years old. injury TECHNIQUE: 4 view(s) of the knee. COMPARISON: None. FINDINGS: Normal visualized distal femur. Normal visualized proximal tibia and fibula. Normal proximal tibiofibular articulation. There is no demonstrated fracture. Normal medial femorotibial compartment. Normal lateral femorotibial compartment. Normal patellofemoral articulation. There is no demonstrated joint effusion. The soft tissue structures are unremarkable. RAD/Knee 4 or More Views IMPRESSION: Normal x-ray examination of the knee. Electronically Signed: Dwight Ross MD at 18:11 EDT ,
--- NOTE | 2023-04-27 17:48 | RAD_ITS ---
STUDY: X-RAY - RIGHT HAND REASON FOR EXAM: Female, 42 years old. injury TECHNIQUE: 3 view(s) of the hand. COMPARISON: None. FINDINGS: There is a nondisplaced, probably intra-articular fracture through the base of the fifth middle phalanx. No other acute abnormalities. Normal radiocarpal articulation. Normal distal radioulnar joint. Normal visualized carpal bones. Normal carpal articulations Normal carpometacarpal articulation of the thumb. Normal second through fifth carpometacarpal joints. Normal metacarpi. Normal metacarpophalangeal joint of the thumb. Normal interphalangeal joint of the thumb. Normal proximal and distal phalanges of the thumb. Normal metacarpophalangeal joints of the second through fifth fingers. Normal proximal and distal interphalangeal joints of the second through fifth fingers. Normal phalanges of the second through fourth fingers. The soft tissue structures are unremarkable. RAD/Hand Min 3 Views IMPRESSION: There is a nondisplaced, probably intra-articular fracture through the base of the fifth middle phalanx. Electronically Signed: Dwight Ross MD at 18:05 EDT ,
[2023-04-27 18:09] LABS: Anion Gap 7 (5-15); BUN 12 mg/dL (7-18); Calcium,Total 8.9 mg/dL (8.5-10.1); Chloride 105 mmol/L (98-107); EST Glomerular Filtration Rate 65 mL/min (>60); Est Glom Filt Rate - Afr Amer 79 mL/min (>60); Estimated Creatinine Clearance 75.44 ml/min; Glucose 180 mg/dL (74-106); Potassium 3.5 mmol/L (3.5-5.1); Sodium Level 138 mmol/L (136-145)
[2023-04-27 18:30] VITALS: BP 183/118
[2023-04-27] MEDS: hydrALAZINE 20 MG/ML Vial IV (18:30)
[2023-04-27 19:33] VITALS: BP 169/102; PULSE 136; RESP 24; O2SAT 97
== END 2023-04-27 19:40 | disposition home or self-care (01) ==
PROVIDERS: Emergency Provider Emergency Medicine; PCP Family Medicine; Visit Provider Emergency Medicine
DX: S62.656A Nondisplaced fracture of middle phalanx of right little finger, initial encounter for closed fracture (principal); J44.9 Chronic obstructive pulmonary disease, unspecified; E11.40 Type 2 diabetes mellitus with diabetic neuropathy, unspecified; J96.11 Chronic respiratory failure with hypoxia; S80.01XA Contusion of right knee, initial encounter; S00.83XA Contusion of other part of head, initial encounter; S00.31XA Abrasion of nose, initial encounter; S60.511A Abrasion of right hand, initial encounter; S60.512A Abrasion of left hand, initial encounter; W01.10XA Fall on same level from slipping, tripping and stumbling with subsequent striking against unspecified object, initial encounter; I10 Essential (primary) hypertension; E78.5 Hyperlipidemia, unspecified; E66.9 Obesity, unspecified; Z68.38 Body mass index [BMI] 38.0-38.9, adult
CPT/HCPCS: 70450; 73130; 73564; 80048; 85025; 93005; 96374; 99285; A4216

== ENCOUNTER → 2023-05-10 | Outpatient (CLI) | payer MEDICARE, MEDICAID, SELFPAY ==
--- NOTE | 2023-05-10 07:33 | BI_ITS ---
MAMMOGRAPHY - BILATERAL SCREENING REASON FOR EXAM: Female, 42 years old. Routine annual screening examination. PERTINENT HISTORY: Aunt with breast cancer. TECHNIQUE: Digital bilateral breast devon (3D mammographic acquisition) in the CC and MLO projections. 2-D mediolateral oblique (MLO) and craniocaudad (CC) views of both breasts were obtained. CAD: Full Field Digital Mammography with Computer Added Detection was performed. COMPARISON: None. Baseline examination. FINDINGS: Breast Composition: There are scattered areas of fibroglandular density. There are no dominant masses or suspicious calcifications. Focal linear density in the axillary region of the left breast. Compression spot views and 90 degree lateral view of the left breast is recommended for further evaluation. No other significant abnormalities are identified. BI/SCRN MAMM (CAD)W/DEVON BILAT IMPRESSION: Focal linear densities in the axillary region of the left breast. This may be positional. The patient will be recalled for additional views of the left breast as described above. Recall Side: Left Breast ASSESSMENT CATEGORY: BIRADS Category 0: Incomplete. Need additional imaging evaluation. A letter regarding these results will be sent to the patient by the facility within 30 days. Approximately 10% of breast cancers are not detected by mammography. A normal mammogram should not delay biopsy of a clinically suspicious abnormality. [id number] Electronically Signed: Mil Spain MD at 9:25 EDT ,
== END | disposition home or self-care (01) ==
LOC: PSN 07:31
PROVIDERS: PCP Family Medicine; Referring Provider Family Medicine; Visit Provider Family Medicine
DX: Z12.31 Encounter for screening mammogram for malignant neoplasm of breast (principal); R55 Syncope and collapse
CPT/HCPCS: 77063; 77067; 93225; 93226

== ENCOUNTER → 2023-05-14 | Outpatient (CLI) | payer MEDICARE, MEDICAID, SELFPAY ==
--- NOTE | 2023-05-14 09:14 | BI_ITS ---
MAMMOGRAPHY - UNILATERAL DIAGNOSTIC: LEFT BREAST REASON FOR EXAM: Female, 42 years old. Abnormal screening mammogram. PERTINENT HISTORY: Aunt with breast cancer. TECHNIQUE: Compression spot views of the left breast in the mediolateral oblique and craniocaudal projections were obtained. CAD: Full Field Digital Mammography with Computer Added Detection was performed. COMPARISON: Comparison is made with prior study May 10, 2023. FINDINGS: Breast Composition: There are scattered areas of fibroglandular density. There are no dominant masses or suspicious calcifications. The previously seen linear density in the axillary region of the left breast represents a skin fold. No other significant abnormalities are identified. BI/DIAG MAMM W/CAD, UNILAT IMPRESSION: Negative unilateral diagnostic mammogram. Yearly followup mammogram recommended. (A) ASSESSMENT CATEGORY: BIRADS Category 2: Benign. A letter regarding these results will be sent to the patient by the facility within 30 days. Approximately 10% of breast cancers are not detected by mammography. A normal mammogram should not delay biopsy of a clinically suspicious abnormality. Electronically Signed: Mil Spain MD at 10:15 EDT ,
== END | disposition home or self-care (01) ==
LOC: OPBI 09:10
PROVIDERS: PCP Family Medicine; Referring Provider Obstetrics & Gynecology; Visit Provider Obstetrics & Gynecology
DX: R92.8 Other abnormal and inconclusive findings on diagnostic imaging of breast (principal)
CPT/HCPCS: 77065

== ENCOUNTER 2023-07-19 10:00 | Outpatient (RCR) | payer MEDICARE, MEDICAID, SELFPAY ==
--- NOTE | 2023-06-04 09:28 | HP.OTEVAL_ITS ---
Patient's Visit Information Visit Information Visit Information: CLIFTON SARAH is a 42 year old F, referred to Occupational Therapy by Dr. Steven Cunningham MD, with a diagnosis of closed displaced fracture of right little finger with routine healing. Date of Evaluation: 06/03/23 Occupational Therapist: Kianna Ansari, CYDNEYR/Beata, CHT Subjective Subjective: Pt is a 42 year old who fell the 5th of May PM and sustained a closed displaced fracture of right little finger. Pt had sore UE, hurt R knee and head. Pt was placed in a splint and cristopher taped. Pt reports completing MP ROM and finger abduction and adduction exercises, seen on YouTube. Pt reports at night it gets really hot and swelling, throbbing, really feels sore. Pt reports doing ice/heat. Pt reports movements hurts and her stomach gets upset with pain. Pt reports decreased ROM of BUE. and home nurse everyday 1-3hrs has been helping with ADLs. Pt has PRN O2. Pt is right hand dominant. ADLs Comments: Pt reports difficulty with opening pop cans, carrying laundry baskets, washing glass/plastics, making bed, putting bra on, hard cutting potatoes Pain R LF: Current Pain Intensity: 6 Pain Intensity Range: 4 and 10 Objective Objective/Observation: Pt protects LF with tasks, keeping it up and avoiding placing pressure on it on the table ROM Opposition: Kapandji Scale: right 10 left 10 MP: R LF +5/73 L LF +11/79 PIP: R LF 0/20 L LF +16/85 DIP: R LF 0/20 L LF +16/75 ROM Comments: Pt able to make a composite with Left hand, unable to bring R LF to palm when making a fist with R hand Finger is warm to touch, PROM to LF pt becomes increasing warm - Pt tolerates minimal ROM of R LF PIP ROM though is able to bend with no end feel. 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 Edema PIP: R LF 6.5cm L LF 5.4cm Other: Pt demonstrates increased edema in R LF Sensation Sensation Comments: Normal sensation in bilateral hands at 2.83. Nine Hole Peg Right: 28.33 sec Left: 25.34 sec In-Hand Manipulation Finger to Palm Translation: Mild - Right and Normal - Left Palm to Finger Translation: Mild - Right and Normal - Left Shift: Mild - Right and Normal - Left Rotation: Moderate - Right and Normal - Left Comments: Uses extreme flexion of wrist when performing palm to finger translation with R hand Quick DASH-Disab of Arm,Shoulder& Hand Quick DASH Score: 75.0000 Goals Goal:: Pt will demonstrate an increased rent and miscellaneous remittance clerk strength of 60# or greater by discharge. Goal:: Pt will demonstrate improved DIP flexion to R LF to 65* by discharge. Pt will demonstrate R LF PIP flexion of 85* by discharge. Goal:: Pt will report >2/10 for R LF pain while performing daily tasks by discharge. Goal:: Pt will demonstrate decreased edema of 5.5cm or less to allow A/PROM to c ontinue the healing process by week 3 of treatment. Goal:: Pt to demo overall increased indep in ADL/IADL tasks by decreased total DASH score by 25 points by discharge. Rehabilitation General Assessment: Pt seen for OT eval 3 weeks and 5 days post closed displaced fracture of right little finger. Pt is limited in R hand strength and R LF ROM. Pt is limited in ADL and IADL tasks. Pt will benefit from skilled OT for 1-2x a week for 4 weeks for increased strengthening and L LF ROM. Therapist ed on OT POC, edema management and provided handout for edema management and digit ROM. Pt verbalizes understanding and agreeable to OT POC. Plan pending Ins Auth. Therapy session was directly supervised and doc. approved by Kianna BRICEÑO/Beata,CHT. Rehabilitation Potential: Good Anticipated Interventions Anticipated Interventions: A/AAROM/PROM, Strengthening, Edema Control, Triggerpoint Release, Desensitization, Modalities, Orthoses, Joint Protection/Energy Conservation, ADL Training, Education re Diagnosis and Home Program Visit Plan Frequency: 1-2x /Week Duration: 4 Weeks TEXT: Thank you for the opportunity to evaluate your patient. For Medicare and Medicare HMO plans, please review the plan of care and approve it. It will need to be FAXED BACK to us at [phone] for Medicare purposes. Please let me know if there are questions or concerns regarding this plan of care. Physician Signature: Date:
--- NOTE | 2023-07-19 10:24 | HP.OTDCSUM_ITS ---
Discharge Summary D/C Summary: It has been my pleasure to treat CLIFTON SARAH under orders from Dr. Steven Cunningham MD, for the diagnosis of closed displaced fracture of right little finger with routine healing for a total of 12 visit(s). Please see the following information for a summary of their discharge status. Overall Improvement % Improvement: 50 Objective Objective/Function: PT arrives states she has noticed increase soreness with change in weather- (therapist advise to wear glove to mtg. pain) pt states she has a nurse to assist with all her ADLs as needed ( pt had nurse for ADLs prior to her finger injury) pt states she has returned to performing light cleaning/laundry and light cooking tasks/ and doing dishes right [employer] insurance strength of 55# increase from 30#left is 60# right lateral pinch 20# increase from 18# right tripod 14# increase from 12# Right LF MCP 0/80 PIP 0/75 DIP 0/55 pt circ. 5.5 decrease from 6.5 pt has made gains with ROM and strength - pt has been ed. she will continue to make gains for about year following this inj. pt demo understanding. pt has returned to performing her ADLs. pt agrees to continue with her HEP and agrees to D/C. 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 ( pt got to 55#) progressing Goal:: Pt will demonstrate improved DIP flexion to R LF to 65* by discharge. (progressing at 55*) Pt will demonstrate R LF PIP flexion of 85* by discharge. ( progressing at 75*) pt ed. to continue to perform her AROM and stretching ex. with HEP - pt agree to d/c and POC. Goal:: Pt will report >2/10 for R LF pain while performing daily tasks by discharge. ( goal met) Goal:: Pt will demonstrate decreased edema of 5.5cm or less to allow A/PROM to continue the healing process by week 3 of treatment. ( goal met) Goal:: Pt to demo overall increased indep in ADL/IADL tasks by decreased total DASH score by 25 points by discharge. Plan Plan: pt d./c D/C Information Discharge Comments: pt was seen for 12 OT sessions following a right LF fx. pt made gains with her ROM and and has returned to doing all her ADLs at her PLOF. pt is to continue with her HEP of PROM / strengthening . pt d,c with HEP. pt agrees with D/C. d/c sentence: If there are questions or concerns regarding this patient's occupational therapy, please fell free to call me at [phone]. Thank you for the referral of this patient. Sincerely, Kianna Ansari, OTR/L, CHT
== END 2023-07-19 13:56 | disposition home or self-care (01) ==
LOC: OT 10:00
PROVIDERS: PCP Family Medicine; Referring Provider Orthopaedic Surgery; Visit Provider Orthopaedic Surgery
DX: S62.626D Displaced fracture of middle phalanx of right little finger, subsequent encounter for fracture with routine healing (principal)
CPT/HCPCS: 97110; 97140; 97166; 97530

== ENCOUNTER → 2023-07-28 | Outpatient (CLI) | payer MEDICARE, MEDICAID, SELFPAY ==
--- NOTE | 2023-07-28 15:30 | RAD_ITS ---
STUDY: X-RAY CHEST REASON FOR EXAM: Female, 42 years old. Shortness of breath. Wheezing. TECHNIQUE: Frontal and lateral views of the chest. COMPARISON: November 27, 2022. FINDINGS: The lungs are clear and expanded. There is no demonstrated pleural abnormality. Normal size heart. Normal mediastinum and cherelle. Normal visualized pulmonary arteries. Normal visualized aortic arch and descending thoracic aorta. Normal visualized thoracic spine. Normal visualized ribs, clavicles, and shoulders. Stable pectus excavatum defect. No abnormality of the visualized soft tissue structures of the upper abdomen. RAD/Chest PA and Lateral IMPRESSION: Stable chest with no acute or active cardiopulmonary disease. Electronically Signed: Casimiro Kiran MD at 15:55 EDT ,
== END | disposition home or self-care (01) ==
PROVIDERS: PCP Family Medicine; Referring Provider Nurse Practitioner Family; Visit Provider Nurse Practitioner Family
DX: R06.02 Shortness of breath (principal); R06.2 Wheezing
CPT/HCPCS: 71046

== ENCOUNTER → 2023-09-01 | Outpatient (CLI) | payer MEDICARE, MEDICAID, SELFPAY ==
[2023-09-01 15:22] LABS: Anion Gap 5 (5-15); BUN 10 mg/dL (7-18); BUN/Creat Ratio 10.8 RATIO (10-20); Chloride 102 mmol/L (98-107); Creatinine, Serum 0.92 mg/dL (0.55-1.02); EST Glomerular Filtration Rate 71 mL/min (>60); Est Glom Filt Rate - Afr Amer 86 mL/min (>60); Glucose 177 mg/dL (74-106); Potassium 3.7 mmol/L (3.5-5.1); Sodium Level 139 mmol/L (136-145)
[2023-09-01 15:23] LABS: AST(SGOT) 22 U/L (15-37); Alanine Aminotransfer ALT/SGPT 44 U/L (13-56); Albumin, Serum 3.6 g/dL (3.2-5.0); Alkaline Phosphatase 93 U/L (45-117); Bilirubin, Direct 0.11 mg/dL (0.00-0.30); Cholesterol 175 mg/dL (200); Globulin 4.2 g/dL (2.2-4.2); High Density Lipoprotein 43 mg/dL; Protein, Total 7.8 g/dL (6.4-8.2); Triglycerides 159 mg/dL; Very Low Density Lipoprotein 32 mg/dL (5-40)
== END | disposition home or self-care (01) ==
LOC: LAB 14:14
PROVIDERS: Nurse Practitioner Gerontology; PCP Family Medicine; Referring Provider Internal Medicine Nephrology; Visit Provider Internal Medicine Nephrology
DX: R80.9 Proteinuria, unspecified (principal); E78.5 Hyperlipidemia, unspecified
CPT/HCPCS: 36415; 80048; 80061; 80076

== ENCOUNTER → 2023-09-13 | Outpatient (CLI) | payer MEDICARE, MEDICAID, SELFPAY ==
--- NOTE | 2023-09-14 10:49 | PFT ---
INTRODUCTION: The patient is a 42-year-old female who presents for pulmonary function studies secondary to a diagnosis of disorders of the lung. Respiratory therapy reported good patient effort. Bronchodilators were used during testing. INTERPRETATION: Forced expiration spirometry demonstrates no evidence of a large airways obstructive ventilatory defect. There was no significant response to aerosolized bronchodilators. Body plethysmography was performed and revealed a decreased TLC to 2.7 L, 48% of predicted, indicative of a severe restrictive ventilatory impairment. The remainder of the lung volumes were symmetrically reduced. Diffusing capacity by single breath CO was reduced to 51% of predicted. 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
== END | disposition home or self-care (01) ==
LOC: PSN 12:44
PROVIDERS: PCP Family Medicine; Referring Provider Internal Medicine Critical Care Medicine; Visit Provider Internal Medicine Critical Care Medicine
DX: J98.4 Other disorders of lung (principal)
CPT/HCPCS: 94060; 94726; 94729

== ENCOUNTER 2023-10-08 22:40 | Emergency (ER) | payer MEDICARE, MEDICAID, SELFPAY ==
[2023-10-08 22:40] VITALS: BP 171/91; PULSE 109; RESP 16; TEMP 36.6; O2SAT 96
[2023-10-09 00:58] VITALS: BP 167/79; PULSE 79; RESP 18
[2023-10-09] MEDS: 0.9% Normal Saline (1000mL) 1,000 ML 999 ML IV (01:15)
--- OUTSIDE RECORDS SUMMARY | 2023-10-09 01:24 | XMS RPT_ITS | CCD ---
Author Name Unknown Address [id number] [place] [address] Organization [facility] Care Team Providers Care Skein Inspector Name Role Phone Roof VICE PRESIDENT INDUSTRIAL RELATIONS, Franklyn Valero Unavailable Kathryn Ravi Unavailable Unavailable CHRIS BURNETTE () Unavailable Unavailable CHRIS BURNETTE) Unavailable Unavailable TERI TY Unavailable Unavailable RAGCLAUDIANATHAN, STEPHEN Unavailable Unavailable VICENTE SELLERS Unavailable Unavailable RAGANDRESSA, STEPHEN Unavailable Unavailable VICENTE SELLERS Unavailable Unavailable Kathryn Ravi Unavailable Unavailable Casimiro Cardoza MD Unavailable Anshu Fry MD, Lena Unavailable [phone] Kenneth Cohn DO Primary Care Provider NUSRAT LEO Attending Unavailable ARMANDO ZENG JR Referring Unavailable KENNETH COHN Primary Care Unavailable NUSRAT LEO Referring Unavailable KENNETH COHN Primary Care Unavailable Allergies Allergy Classification Reported Allergen(s) Allergy Type Date of Onset Reaction(s) Facility (2 sources) acetaminophen / HYDROcodone drug allergy 7 [facility] Work Phone: (8 sources) nabumetone; Translations: [NABUMETONE] drug allergy 6 Swelling [facility] Work Phone: (3 sources) penicillin drug allergy 3 Swelling & shortness of breath [facility] Work Phone: (5 sources) acetaminophen / HYDROcodone; Translations: [HYDROCODONE-ACET AMINOPHEN] Drug Allergy 6 Rash, Itching [facility] Repository (5 sources) Penicillins; Translations: [PENICILLINS] Propensity to adverse reactions to drug (disorder) 5 Swelling, Shortness of Breath [facility] Repository Medications Completed/Discontinued Medications Medication Drug Class(es) Dates Sig (Normalized) Sig (Original) Acetaminophen / HYDROcodone (5 sources) Opioid Agonist End: 04-29-2017 take 1-2 tablets by mouth every six hours as needed for pain HYDROCODONE-ACETAM INOPHEN 5-500 MG TABS 1-2 tabs by mouth every 6 hrs as needed for pain HYDROCODONE-ACETAM INOPHEN [id number] Kathryn Cota Trav Problems Active Problems Problem Classification Problem Date Documented Date Episodic/Chronic Adjustment disorders (3 sources) Adjustment disorder with depressed mood; Translations: [Adjustment disorder with depressed mood] Onset: 06-01-2013 08-18-2016 Chronic Asthma (6 sources) Severe persistent asthma with (acute) exacerbation; Translations: [Unspecified asthma with (acute) exacerbation] Onset: 06-29-2005 09-29-2021 Chronic Cardiac dysrhythmias (3 sources) Paroxysmal supraventricular tachycardia; Translations: [Supraventricular tachycardia] Onset: 02-22-2008 02-22-2008 Chronic Developmental disorders (3 sources) Mild intellectual disability; Translations: [Mild intellectual disabilities] Onset: 06-29-2005 06-29-2005 Chronic Diabetes mellitus with complications (3 sources) Autonomic neuropathy due to type 2 diabetes mellitus; Translations: [Type 2 diabetes mellitus with diabetic autonomic (poly)neuropathy] Onset: 03-25-2017 03-25-2017 Chronic Diabetes mellitus without complication (1 source) Type 2 diabetes mellitus without complications; Translations: [Type 2 diabetes mellitus without complications] Onset: 04-24-2016 Chronic Disorders of lipid metabolism (3 sources) Mixed hyperlipidemia; Translations: [Mixed hyperlipidemia] Onset: 12-22-2006 12-22-2006 Chronic Endometriosis (3 sources) Endometriosis, unspecified; Translations: [Endometriosis, unspecified] Onset: 10-18-2012 10-18-2012 Chronic Esophageal disorders (3 sources) Gastroesophageal reflux disease; Translations: [Gastro-esophageal reflux disease without esophagitis] Onset: 02-23-2008 02-23-2008 Chronic Essential hypertension (4 sources) Essential (primary) hypertension; Translations: [Essential hypertension] Onset: 06-29-2005 04-23-2016 Chronic Fracture of upper limb (1 source) Closed fracture of middle phalanx of little finger; Translations: [Displaced fracture of middle phalanx of right little finger, subsequent encounter for fracture with routine healing] 05-31-2023 Episodic Genitourinary symptoms and ill-defined conditions (3 sources) Female stress incontinence; Translations: [Stress incontinence (female) (male)] Onset: 01-20-2016 01-20-2016 Chronic Headache; including migraine (3 sources) Migraine without aura; Translations: [Migraine without aura, not intractable, without status migrainosus] Onset: 10-08-2008 09-30-2015 Chronic Menstrual disorders (3 sources) Amenorrhea; Translations: [Amenorrhea, unspecified] Onset: 06-29-2005 06-29-2005 Chronic Other connective tissue disease (3 sources) Cramp in lower limb; Translations: [Sleep related leg cramps] Onset: 10-14-2015 10-14-2015 Chronic Other connective tissue disease (2 sources) Pain in finger of right hand; Translations: [Pain in right finger(s)] 05-26-2023 Episodic Other connective tissue disease (1 source) Pain in right finger(s); Translations: [Pain of finger of right hand] Onset: 05-31-2023 Episodic Other diseases of kidney and ureters (3 sources) Renal mass; Translations: [Other specified disorders of kidney and ureter] Onset: 01-20-2016 01-20-2016 Chronic Other liver diseases (1 source) Fatty (change of) liver, not elsewhere classified; Translations: [Fatty (change of) liver, not elsewhere classified] Onset: 04-24-2016 Chronic Other liver diseases (3 sources) Steatosis of liver; Translations: [Fatty (change of) liver, not elsewhere classified] Onset: 11-04-2015 04-23-2016 Chronic Other nutritional; endocrine; and metabolic disorders (1 source) Morbid (severe) obesity due to excess calories; Translations: [Morbid (severe) obesity due to excess calories] Onset: 04-24-2016 Chronic Other nutritional; endocrine; and metabolic disorders (4 sources) Morbid obesity; Translations: [Morbid (severe) obesity due to excess calories] Onset: 01-20-2016 01-20-2016 Chronic Other upper respiratory disease (3 sources) Allergic rhinitis; Translations: [Allergic rhinitis, unspecified] Onset: 06-25-2011 06-25-2011 Chronic Residual codes; unclassified (3 sources) Obstructive sleep apnea syndrome; Translations: [Obstructive sleep apnea (adult) (pediatric)] Onset: 07-18-2014 04-23-2016 Chronic Respiratory failure; insufficiency; arrest (2 sources) Chronic respiratory failure with hypoxia; Translations: [Acute and chronic respiratory failure with hypoxia] Onset: 04-24-2016 Chronic Thyroid disorders (3 sources) Non-toxic uninodular goiter; Translations: [Nontoxic single thyroid nodule] Onset: 10-14-2015 10-14-2015 Chronic Unclassified (1 source) Obstructive sleep apnea (adult) (pediatric); Translations: [Obstructive sleep apnea (adult) (pediatric)] Onset: 04-24-2016 Chronic Unclassified (3 sources) Type 2 diabetes mellitus without complication; Translations: [Uncontrolled type 2 diabetes mellitus without complication, without long-term current use of insulin] Onset: 03-16-2016 08-18-2016 Past or Other Problems Problem Classification Problem Date Documented Date Episodic/Chronic Abdominal hernia (3 sources) Incisional hernia without obstruction or gangrene; Translations: [Incisional hernia without obstruction or gangrene] Onset: 10-18-2012 10-18-2012 Episodic Fluid and electrolyte disorders (1 source) Acidosis; Translations: [Acidosis] Onset: 04-24-2016 Episodic Genitourinary symptoms and ill-defined conditions (3 sources) Lower urinary tract symptoms; Translations: [Unspecified symptoms and signs involving the genitourinary system] Onset: 01-20-2016 01-20-2016 Episodic Nonspecific chest pain (1 source) Chest pain, unspecified; Translations: [Chest pain, unspecified] Onset: 04-24-2016 Episodic Open wounds of head; neck; and trunk (3 sources) Late effect of open wound of head, neck, and trunk; Translations: [Late effect of open wound of head, neck, and trunk] Onset: 10-18-2012 10-18-2012 Episodic Other lower respiratory disease (3 sources) Restrictive lung disease; Translations: [Other disorders of lung] Onset: 03-10-2007 09-30-2015 Episodic Other lower respiratory disease (3 sources) Hypoxemia; Translations: [Hypoxemia] Onset: 11-15-2015 03-16-2017 Episodic Residual codes; unclassified (3 sources) Edema; Translations: [Edema, unspecified] Onset: 10-26-2011 10-26-2011 Episodic Residual codes; unclassified (3 sources) Edema of lower leg ; Translations: [Localized edema] Onset: 03-16-2016 03-16-2016 Episodic Varicose veins of lower extremity (3 sources) Varicose vein of leg with phlebitis; Translations: [Varicose veins of right lower extremity with inflammation] Onset: 08-18-2016 08-18-2016 Episodic Results Test Name Value Interpretation Reference Range Facil ity Vital Signs Date Time Vital Sign Value Performing Clinician Faci lity 02-07-2013 10:21-0400 BMI (Body Mass Index) 38.93 kg/m2 [facility] Work Phone: 02-07-2013 10:21-0400 Body Temperature 97.5 [degF] [facility] Work Phone: 02-07-2013 10:21-0400 BP Diastolic 86 mm[Hg] [facility] Work Phone: 02-07-2013 10:21-0400 BP Systolic 138 mm[Hg] [facility] Work Phone: 02-07-2013 10:21-0400 BSA (Body Surface Area) 2.28 m2 [facility] Work Phone: 02-07-2013 10:21-0400 Pulse (Heart Rate) 78 /min [facility] Work Phone: 02-07-2013 10:21-0400 Respiratory Rate 16 /min [facility] Work Phone: 02-07-2013 10:21-0400 Weight 116.58 kg [facility] Work Phone: 10-18-2012 11:21-0500 Height 173.35 cm Kathryn York [facility] Work Phone: Encounters Encounter Date Encounter Type Care Provider Facility Start: 05-31-2023 End: 05-31-2023 ambulatory NUSRAT LEO Facility:[facility] Start: 05-31-2023 End: 05-31-2023 Patient encounter procedure Nusrat Leo MD Work Phone: Orthopaedics Procedures Date Procedure Procedure Detail Performing Clinician Start: 05-31-2023 Radex fingr minimum 2 views Nusrat Leo MD Work Phone: Plan of Treatment Date Care Activity Detail Author Start: 2047 PNEUMOCOCCAL (3 - PPSV23 or PCV20) PNEUMOCOCCAL (3 - PPSV23 or PCV20) [facility] Start: 2047 Pneumococcal vaccination Pneumococcal Vaccine (3 - PPSV23 or PCV20) [facility] Start: 06-04-2023 Covid-19 Vaccine () Covid-19 Vaccine () [facility] Start: 06-04-2023 Influenza vaccination [facility] Start: 2022 Mammography [facility] Start: 10-04-2022 DEPRESSION ASSESSMENT DEPRESSION ASSESSMENT [facility] Start: 08-07-2021 Covid-19 Vaccine (3 - Moderna series) Covid-19 Vaccine (3 - Moderna series) [facility] Start: 06-29-2021 HPV TESTING HPV TESTING [facility] Start: 06-29-2021 PAP TESTING PAP TESTING [facility] Start: 05-19-2019 3 comp foot exam completed DIABETIC FOOT EXAM [facility] Start: 04-29-2019 Urine microalbumin profile [facility] Start: 03-15-2018 Hepatitis B screening URINE ALBUMIN:CREATININE RATIO [facility] Start: 03-15-2018 Hepatitis B surface antibody level LDL CHOLESTEROL [facility] Start: 09-14-2017 Hemoglobin A1c/Hemoglobin.total in Blood HBA1C [facility] Start: 06-17-2017 End: 06-17-2017 Appointment Appointment [facility] Work Phone: Start: 06-03-2017 End: 06-03-2017 Appointment Appointment [facility] Work Phone: Start: 05-07-2017 Hepatitis C antibody, confirmatory test DILATED RETINAL EXAM [facility] Start: 2000 ANNUAL PCP TEAM CHRONIC DISEASE VISIT ANNUAL PCP TEAM CHRONIC DISEASE VISIT [facility] Start: 2000 BP CONTROLLED (<130/80) BP CONTROLLED (<130/80) [facility] Start: 04-29-1983 COVID-19 VACCINE (#1) COVID-19 VACCINE (#1) [facility] Start: 1982 HEPATITIS B (1 of 3 - 3-dose series) HEPATITIS B (1 of 3 - 3-dose series) [facility] Start: 1982 Hepatitis B Vaccine (1 of 3 - 3-dose series) Hepatitis B Vaccine (1 of 3 - 3-dose series) [facility] End: 06-24-2024 XR DIGIT GENERAL 3V FRONTAL/LAT/OBL RIGHT XR DIGIT GENERAL 3V FRONTAL/LAT/OBL RIGHT Radiology Routine Pain of finger of right hand 1 Occurrences starting 05/26/2023 until 06/24/2024 [facility] Work Phone: Immunizations Immunization Date Immunization Notes Care Provider Fa kylie 07-16-2022 influenza virus vacc ine, unspecified formulation Nusrat Leo MD Work Phone: [facility] 08-04-2016 pneumococcal conjuga te vaccine, 13 valent Nusrat Leo MD Work Phone: [facility] Work Phone: 06-30-2016 influenza, injectabl e, quadrivalent, contains preservative Nusrat Leo MD Work Phone: [facility] 08-18-2015 influenza, seasonal, injectable Nusrat Leo MD Work Phone: [facility] 07-04-2014 influenza, seasonal, injectable Nusrat Leo MD Work Phone: [facility] 06-28-2012 influenza virus vacc ine, unspecified formulation Nusrat Leo MD Work Phone: [facility] Work Phone: 08-12-2010 influenza virus vacc ine, unspecified formulation Nusrat Leo MD Work Phone: [facility] 07-26-2009 influenza virus vacc ine, unspecified formulation Nusrat Leo MD Work Phone: [facility] Work Phone: 04-29-2009 tetanus toxoid, redu andrés diphtheria toxoid, and acellular pertussis vaccine, adsorbed Nusrat Leo MD Work Phone: [facility] Work Phone: 08-08-2007 influenza virus vacc ine, unspecified formulation Nusrat Leo MD Work Phone: [facility] Work Phone: 10-03-2003 pneumococcal polysaccharide vaccine, 23 valent Nusrat Leo MD Work Phone: [facility] Payers Date Payer Category Payer Medicaid [facility] MEDICAID [id number] 2015-Present [phone] [address] [place] [address] Medicaid [id number] 2015 Medicare [employer] [facility] MEDICARE [id number] 2015-Present [phone] [address] [place] [address] Medicare [id number] 2015 Unknown [id number] 1982 Unknown [id number] 1982 Unknown [id number] 1982 Unknown [id number] Social History Date Type Detail Facility Start: 04-22-2011 Tobacco smoking stat [facility] Never smoked tobacco [facility] Work Phone: Start: 04-22-2011 Tobacco use and exposure Smokeless tobacco non-user [facility] Work Phone: Start: 05-01-2021 End: 05-31-2023 Alcohol intake Current non-drinker of alcohol (finding) [facility] Start: 05-01-2021 End: 05-10-2023 History of Social function [facility] Start: 05-01-2021 End: 05-10-2023 Tobacco use panel [facility] Adult Depression Screening Assessment 0 [facility] Start: 1980 Sex Assigned At Not on file [facility] Medical Equipment Procedure Code Equipment Code Equipment Origin al Text Equipment Identifier Dates Start: 05-28-2016 Goals Date Patient Goal Desired Activity /State Personal health goal Clinical Notes 04-23-2016 to 05-31-2023 Nusrat Leo MD - 05/31/2023 2:03 PM EDTMMeena lucero RT(R) - 05/31/2023 1:20 PM EDT Note Date & Type Note Facility 05-31-2023 Note HNO ID: [id number] Author: Nusrat Leo MD Service: ? Author Type: Physician Type: Progress Notes Filed: 06/25/2023 3:36 PM Note Text: Nusrat Leo MD Department of Orthopaedics [facility] [address] [facility] [address] Dept: [phone] Dept June 25, 2023 CHIEF COMPLAINT: New and Fracture of the Right Little Finger (Referred by Dr Zeng. Xrays taken 05/07/2023 and 04/30/[address] [facility]) HPI Patient presents with: Right Little Finger - New, Fracture: Referred by Dr Zeng. Xrays taken 05/07/2023 and 04/30/[address] [facility] Patient reports pain in the right 5th finger. She fell on her finger 4 weeks ago. She has swelling and bruising. She wears a splint daily. She takes tylenol or aleve for pain. AMB ROOMING INTAKE FLOWSHEET DATA Risk Screening Do you have concerns about personal safety or safety in the home?: No Pain Pain Level: 7 Pain Location: Finger Description: Sharp, Throbbing, Aching Duration Amount of Time: 4 Duration Units: Weeks Frequency: Continuous Intervention/Comfort measure: Medication, Reposition ASSESSMENT: S62.466D Closed displaced fracture of middle phalanx of right little finger with routine healing, subsequent encounter (primary encounter diagnosis) PLAN: difficult fracture. Intra-articular. High risk for stiffness and loss of motion, no matter the treatment plan. Recommend OT at this time to try to optimize ROM. Not sure outcome would have been any better hand OR option been proceeded with. FOLLOW UP INSTRUCTIONS: As needed OBJECTIVE: Ms. Diann Cage is a pleasant 42 year old in no apparent distress. Gen:LMP 04/18/2017 nl development, obese, no deformities ENT: Normocephalic, normal hearing, moist mucosa CV: Pulses:Radial= 2+ and symmetric, capillary refill < 2 secs, no peripheral edema/varicosities Skin: no rash, bruising or lesions. Good turgor. Psych: cooperative and appropriate, alert and oriented x 3, good mood and affect. Musculoskeletal: Mild swelling at PIP. Not much pain on palpation, Limited motion at PIP IMAGING: IMPRESSION: Fifth digit fracture as described above. Retail Experience Specialist: KIMBER Transcribe Date/Time: Jun 02 2023 8:52A Dictated by : ALLAN GRESHAM MD This examination was interpreted and the report reviewed and electronically signed by: ALLAN GRESHAM MD on Jun 02 2023 8:56AM EST Results-Findings * * *Final Report* * * DATE OF EXAM: May 31 2023 1:30PM [id number] - XR DIGIT 3V FRONTAL/LAT/OBL RT / PROCEDURE REASON: Pain of finger of right hand * * * * Physician Interpretation * * * * EXAM TITLE: XR DIGIT 3V FRONTAL/LAT/OBL RT EXAM DATE/TIME: 05/31/2023 1:30 PM COMPARISON: None. CLINICAL INDICATION/HISTORY: Pain TECHNIQUE: PA, lateral and oblique views of the fifth digit of the right hand are presented. FINDINGS: Impacted and mildly displaced fracture seen in the proximal portion of the middle phalanx in the fifth digit. There is fracture line extension to the PIP joint. The joint spaces are grossly preserved. The mineralization of the bones is normal. There is mild soft tissue swelling. Supporting Subjective Information Below: Past Medical History: PAST MEDICAL HISTORY Diagnosis Date Abdominal pain, right lower quadrant Absence of menstruation 06/29/2005 Adjustment disorder with depressed mood 06/29/2005 Constipation Dependence on supplemental oxygen 5L Diabetes (HCC) 04/2013 type 1 Dysmetabolic syndrome 06/01/2013 Edema 10/26/2011 Endometrioma 12/08/2012 Esophageal reflux Generalized convulsive epilepsy without mention of intractable epilepsy 06/29/2005 History of colonic polyps Mild intellectual disabilities 06/29/2005 Nonspecific abnormal results of liver function study 06/30/2005 Paroxysmal supraventricular tachycardia (HCC) 02/22/2008 Pleurisy Proteinuria 06/30/2005 Unspecified asthma(493.90) 06/29/2005 Unspecified essential hypertension 06/29/2005 Varicose veins of both lower extremities with inflammation 08/18/2016 Past Surgical History: PAST SURGICAL HISTORY Procedure Laterality Date DELIVERY ONLY 08/2004 , low cervical COLONOSCOPY FLX DX W/COLLJ SPEC WHEN PFRMD 01/02/2015 Colonoscopy COLONOSCOPY FLX DX W/COLLJ SPEC WHEN PFRMD 02/05/16 Colonoscopy -[facility] CYSTOSCOPY 02/11/2016 EGD DILATION GASTRIC/DUODENAL STRICTURE 04/28/2016 EXC TUMOR SOFT TISSUE ABDL WALL SUBFASCIAL <5CM 01-25-07 x2 EXCISION ABD WALL TUMOR SUBFASCIAL endometrioma, Right lower quadrant IMBRICATION DIAPHRAGM EVENTRATION 1982 Congenital diaphragmatic hernia LIG/TRNSXJ FLP TUBE ABDL/VAG APPR UNI/BI 2004 Tubal ligation NEUROPLASTY AND/TRANSPOS MEDIAN NRV CARPAL TUNNE OPTX SHOP FOREMAN FEM EPIPHYSIS OSTEOTANDINT FIXJ PAST SURGICAL HISTORY OF x 9 surgeries as a baby PAST SURGICAL HISTORY OF 02/2009 oral surgery right wisdom teeth extracted PAST SURGICAL HISTORY OF Bilateral Bilatera (more content not included)... [facility] 05-31-2023 Note HNO ID: [id number] Author: Meena Peoples RT(R) Service: ? Author Type: Technologist Type: Progress Notes Filed: 05/31/2023 1:38 PM Note Text: Radiology Service Progress Note PATIENT NAME: Diann Cage DATE OF SERVICE: May 31, 2023 TIME: 1:36 PM PATIENT IDENTITY VERIFICATION COMPLETED USING TWO (2) IDENTIFIERS: Name and Date of confirmed by patient verbally. FALL SCREENING: Has the patient had 2 falls in the last year or 1 fall with injury or currently using an Ambulatory Assistive Device (Walker, Cane, Wheelchair, Crutches, etc.)? Yes, Patient High Risk for Falls What interventions were put in place to prevent falls during this visit? Increased Observations by Caregivers PATIENT GENDER DATA: Female. status: : No status: NO. PATIENT RELEVANT IMPLANT DATA REVIEWED: Not Applicable RADIOLOGY DEPARTMENT: General X-ray: Exam(s) Completed: Upper Extremity X-Ray(s): Fingers/Thumb, right , LITTLE FINGER PERIPHERAL IV DATA: Not applicable SIGNED BY: Meena Peoples RT(R) May 31, 2023 1:36 PM [facility] 05-31-2023 History of Present illness Narrative Nusrat Leo MD Department of Orthopaedics Orth[facility] [address] [facility] [address] Dept: [phone] Dept June 25, 2023 CHIEF COMPLAINT: New and Fracture of the Right Little Finger (Referred by Dr Zeng. Xrays taken 05/07/2023 and 04/30/[address] [facility]) HPI Patient presents with: Right Little Finger - New, Fracture: Referred by Dr Zeng. Xrays taken 05/07/2023 and 04/30/[address] [facility] Patient reports pain in the right 5th finger. She fell on her finger 4 weeks ago. She has swelling and bruising. She wears a splint daily. She takes tylenol or aleve for pain. AMB ROOMING INTAKE FLOWSHEET DATA Risk Screening Do you have concerns about personal safety or safety in the home?: No Pain Pain Level: 7 Pain Location: Finger Description: Sharp, Throbbing, Aching Duration Amount of Time: 4 Duration Units: Weeks Frequency: Continuous Intervention/Comfort measure: Medication, Reposition ASSESSMENT: S62.626D Closed displaced fracture of middle phalanx of right little finger with routine healing, subsequent encounter (primary encounter diagnosis) PLAN: difficult fracture. Intra-articular. High risk for stiffness and loss of motion, no matter the treatment plan. Recommend OT at this time to try to optimize ROM. Not sure outcome would have been any better hand OR option been proceeded with. FOLLOW UP INSTRUCTIONS: As needed OBJECTIVE: Ms. Diann Cage is a pleasant 42 year old in no apparent distress. Gen:LMP 04/18/2017 nl development, obese, no deformities ENT: Normocephalic, normal hearing, moist mucosa CV: Pulses:Radial= 2+ and symmetric, capillary refill < 2 secs, no peripheral edema/varicosities Skin: no rash, bruising or lesions. Good turgor. Psych: cooperative and appropriate, alert and oriented x 3, good mood and affect. Musculoskeletal: Mild swelling at PIP. Not much pain on palpation, Limited motion at PIP IMAGING: IMPRESSION: Fifth digit fracture as described above. Retail Experience Specialist: KIMBER Transcribe Date/Time: Jun 02 2023 8:52A Dictated by : ALLAN GRESHAM MD This examination was interpreted and the report reviewed and electronically signed by: ALLAN GRESHAM MD on Jun 02 2023 8:56AM EST Results-Findings * * *Final Report* * * DATE OF EXAM: May 31 2023 1:30PM [id number] - XR DIGIT 3V FRONTAL/LAT/OBL RT / PROCEDURE REASON: Pain of finger of right hand * * * * Physician Interpretation * * * * EXAM TITLE: XR DIGIT 3V FRONTAL/LAT/OBL RT EXAM DATE/TIME: 05/31/2023 1:30 PM COMPARISON: None. CLINICAL INDICATION/HISTORY: Pain TECHNIQUE: PA, lateral and oblique views of the fifth digit of the right hand are presented. FINDINGS: Impacted and mildly displaced fracture seen in the proximal portion of the middle phalanx in the fifth digit. There is fracture line extension to the PIP joint. The joint spaces are grossly preserved. The mineralization of the bones is normal. There is mild soft tissue swelling. Supporting Subjective Information Below: Past Medical History: PAST MEDICAL HISTORY Diagnosis Date Abdominal pain, right lower quadrant Absence of menstruation 06/29/2005 Adjustment disorder with depressed mood 06/29/2005 Constipation Dependence on supplemental oxygen 5L Diabetes (HCC) 04/2013 type 1 Dysmetabolic syndrome 06/01/2013 Edema 10/26/2011 Endometrioma 12/08/2012 Esophageal reflux Generalized convulsive epilepsy without mention of intractable epilepsy 06/29/2005 History of colonic polyps Mild intellectual disabilities 06/29/2005 Nonspecific abnormal results of liver function study 06/30/2005 Paroxysmal supraventricular tachycardia (HCC) 02/22/2008 Pleurisy Proteinuria 06/30/2005 Unspecified asthma(493.90) 06/29/2005 Unspecified essential hypertension 06/29/2005 Varicose veins of both lower extremities with inflammation 08/18/2016 Past Surgical History: PAST SURGICAL HISTORY Procedure Laterality Date DELIVERY ONLY 08/2004 , low cervical COLONOSCOPY FLX DX W/COLLJ SPEC WHEN PFRMD 01/02/2015 Colonoscopy COLONOSCOPY FLX DX W/COLLJ SPEC WHEN PFRMD 02/05/16 Colonoscopy -[facility] CYSTOSCOPY 02/11/2016 EGD DILATION GASTRIC/DUODENAL STRICTURE 04/28/2016 EXC TUMOR SOFT TISSUE ABDL WALL SUBFASCIAL <5CM 01-25-07 x2 EXCISION ABD WALL TUMOR SUBFASCIAL endometrioma, Right lower quadrant IMBRICATION DIAPHRAGM EVENTRATION 1982 Congenital diaphragmatic hernia LIG/TRNSXJ FLP TUBE ABDL/VAG APPR UNI/BI 2004 Tubal ligation NEUROPLASTY &/TRANSPOS MEDIAN NRV CARPAL TUNNE OPTX SHOP FOREMAN FEM EPIPHYSIS OSTEOT&INT FIXJ PAST SURGICAL HISTORY OF x 9 surgeries as a baby PAST SURGICAL HISTORY OF 02/2009 oral surgery right wisdom teeth extracted PAST SURGICAL HISTORY OF Bilateral Bilateral carpal tunnel syndrome RPR 1ST INGUN HRNA AGE 7 YRS/> REDUCIBLE Hernia repair, inguinal RPR UMBILICAL HERNIA < 5 YRS REDUCIBLE Hernia repair, umbilical <5yr STERNAL DEBRIDEMENT 02/02/1989 Sternal osteotomy, Pectus excavatum Family History: FAMILY HISTORY Problem Relation Age of Onset Stroke Mother Diabetes Mother COPD Mother Heart Mother mi Stroke Father Diabetes Father Coronary Artery Disease Father Heart Father mi Diabetes Sister other (G-tube) Son Social History: Social History Tobacco Use Smoking status: Never Smokeless tobacco: Never Vaping Use Vaping Use: Never used Substance Use Topics Alcohol use: No Drug use: No Medications: Current Outpatient Medications Medication Sig amitriptyline (ELAVIL) 10 mg tablet TWICE A DAY amLODIPine (NORVASC) 10 mg tablet DAILY atorvastatin (LIPITOR) 40 mg tablet AT BEDTIME glipiZIDE (GLUCOTROL) 5 mg tablet Take by mouth. hydrALAZINE (APRESOLINE) 50 mg tablet THREE TIMES A DAY irbesartan (AVAPRO) 150 mg tablet DAILY levothyroxine 150 mcg cap Take by mouth. megestrol (MEGACE) 40 mg tablet .COMPLEX sertraline (ZOLOFT) 100 mg tablet Take 1 tablet by mouth once daily. topiramate XR (TROKENDI XR) 50 mg capsule Take 1 capsule by mouth once daily. gabapentin (NEURONTIN) 100 mg capsule Take by mouth. dulaglutide (TRULICITY) 0.75 mg/0.5 mL pnij Inject 1 Dose subcutaneously once each week. Per endo furosemide (LASIX) 20 mg tablet Take 1 tablet by mouth twice daily. albuterol HFA (VENTOLIN HFA) 90 mcg/actuation inhaler 2 Puffs every 4-6 hours as needed for shortness of breath spironolactone (ALDACTONE) 25 mg tablet TAKE 1 TABLET BY MOUTH TWICE DAILY COMPOUNDED PRESCRIPTION supplemental oxygen via nasal cannula 3 LPM. Please also provide portable equipment as patient is active outside of the home. Diagnosis: hypoxemia. metoprolol succinate ER (TOPROL XL) 200 mg 24 hr tablet Take 0.5 tablets by mouth once daily. baclofen (LIORESAL) 20 mg tablet Take 1 tablet by mouth three times daily as needed (muscle spasms). montelukast (SINGULAIR) 10 mg tablet Take 1 tablet by mouth daily at bedtime. omeprazole (PRILOSEC) 20 mg capsule Take 1 capsule by mouth once daily. potassium chloride (K-TAB) 10 mEq tablet Take 4 tablets by mouth once daily. medroxyPROGESTERone (PROVERA, CYCRIN) 10 mg tablet Take 1 tablet daily for 10 days every 8 weeks albuterol (PROVENTIL) 2.5 mg /3 mL (0.083 %) nebulizer solution Use 3 mL via nebulizer every 6 hours as needed. As needed via nebulizer for asthma COMPOUNDED PRESCRIPTION Please provide patient with BiPAP with settings 19/13 cm of water with humidification. Please use a small [employer] Simplus mask. Diagnosis: left eye a escitalopram oxalate (LEXAPRO) 5 mg tablet Take 1 tablet by mouth once daily. ipratropium-albuterol (DUONEB) 0.5 mg-3 mg(2.5 mg base)/3 mL nebu Inhale 3 mL as instructed every 6 hours as needed (shortnss of breath or hweezing). ondansetron orally disintegrating (ZOFRAN ODT) 4 mg disintegrating tablet Take 1 tablet by mouth every 6 hours as needed for Nausea/Vomiting. fluticasone (FLONASE) 50 mcg/actuation nasal spray Use 2 Sprays in each nostril once daily. Rinse mouth after use. multivitamin,yw-hvyy-lxmsoudf (THERAGRAN M) tab Take 1 tablet by mouth once daily. JARDIANCE 25 mg tablet FREESTYLE CHARLA 14 DAY SENSOR kit RAFFI ELLIPTA 200-25 mcg/dose inhaler pantoprazole DR (PROTONIX) 40 mg tablet TROKENDI XR 100 mg capsule traZODone (DESYREL) 50 mg tablet metFORMIN ER (GLUCOPHAGE XR) 500 mg 24 hr tablet Take 1 tablet by mouth twice daily before meals. (Patient not taking: Reported on 05/31/2023) dicyclomine (BENTYL) 10 mg capsule TAKE 1 CAPSULE BY MOUTH BEFORE MEALS AND TAKE 1 CAPSULE AT BEDTIME (Patient not taking: Reported on 05/31/2023) verapamil SR (CALAN SR, ISOPTIN SR) 240 mg CR tablet TAKE 1 TABLET BY MOUTH TWICE A DAY (Patient not taking: Reported on 05/31/2023) miSOPROStol (CYTOTEC) 200 mcg tablet 2 tablets as directed. Take 2 tabs the night before & 2 tabs the morning of the procedure - vaginally. (Patient not taking: Reported on 05/31/2023) naproxen (NAPROSYN) 500 mg tablet Take 500 mg by mouth twice daily with meals. (Patient not taking: Reported on 05/31/2023) metOLAzone (ZAROXOLYN) 5 mg tablet Take 1 tablet by mouth once each week. (Patient not taking: Reported on 05/31/2023) fluticasone-salmeterol (ADVAIR DISKUS) 250-50 mcg/dose dsdv Inhale 1 Puff as instructed twice daily. RINSE MOUTH AFTER USE. (Patient not taking: Reported on 05/31/2023) Insulin [place], Disposable, (BD ULTRAFINE III MINI PEN) 31 gauge x 3/16 ndle USE WITH victoza pens daily (Patient not taking: Reported on 05/31/2023) Compression Knee Highs KNEE HIGH COMPRESSION STOCKINGS 20-30 MM Hg. DX: ICD9: 782.3, ICD10: R60.0; ICD9: 454.1, ICD10: I83.12, I83.11 Vicente Sellers MD (Patient not taking: Reported on 05/31/2023) Incontinence Pad, Liner, Disp (PREVAIL BLADDER CONTROL PAD) pads 1 Units as needed. SUMAtriptan (IMITREX) 100 mg tablet Take 1 tablet by mouth as needed for Migraine Headache (see administration instructions). (Patient not taking: Reported on 05/31/2023) blood sugar diagnostic (BLOOD GLUCOSE TEST) test strip Test blood sugar(s) four (4) times daily. daily. Dx: Type 2 diabetes, controlled without complication. E11.9. Insulin: No (Patient not taking: Reported on 05/31/2023) Lancets lancets Test blood sugar(s) four (4) times daily. daily. Dx: Type 2 diabetes, controlled without complication. E11.9. Insulin: No (Patient not taking: Reported on 05/31/2023) No current facility-administered medications for this visit. Allergies: Nabumetone, Penicillins, and [place] [Hydrocodone-Acetaminophen] ROS: General (negative for fatigue, malaise, weight loss/gain) HEENT (negative for headache, earache, recent vision changes, sinus pain, sore throat) Respiratory (no recent shortness of breath, hemoptysis) CV (negative for chest tightness, palpitations) Musculoskeletal (see HPI) Psych (no depression, anxiety) REFERRING PHYSICIAN: Consultation requested by Dr. Zeng for an opinion regarding finger fracture. My final recommendations will be communicated back to the requesting physician by way of shared Medical record or letter to requesting physician via US mail. Armando Zeng Jr, MD [address] [facility] [address] [facility] [id number] Kenneth Cohn DO [address] [facility] [address] Nusrat Leo MD documented in this encounter [facility] 05-31-2023 History of Present illness Narrative Radiology Service Progress Note PATIENT NAME: Diann Cage DATE OF SERVICE: May 31, 2023 TIME: 1:36 PM PATIENT IDENTITY VERIFICATION COMPLETED USING TWO (2) IDENTIFIERS: Name and Date of confirmed by patient verbally. FALL SCREENING: Has the patient had 2 falls in the last year or 1 fall with injury or currently using an Ambulatory Assistive Device (Walker, Cane, Wheelchair, Crutches, etc.)? Yes, Patient High Risk for Falls What interventions were put in place to prevent falls during this visit? Increased Observations by Caregivers PATIENT GENDER DATA: Female. status: : No status: NO. PATIENT RELEVANT IMPLANT DATA REVIEWED: Not Applicable RADIOLOGY DEPARTMENT: General X-ray: Exam(s) Completed: Upper Extremity X-Ray(s): Fingers/Thumb, right , LITTLE FINGER PERIPHERAL IV DATA: Not applicable SIGNED BY: RT Roberto(R) May 31, 2023 1:36 PM documented in this encounter [facility] documented as of this encounter (statuses as of 05/26/2023) [facility]07-[facility]2016 History of Past illness Narrative* Problem Noted Date Diagnosed Date Resolved Date Elevated lactic acid level 04/23/2016 1 10/18/2015 Right upper quadrant abdominal pain 01/21/2016 03/16/2017 Transaminitis 01/21/2016 03/16/2017 Constipation 01/17/2015 03/16/2017 Neck pain, musculoskeletal 08/16/2014 1 10/18/2015 Last Assessment & Plan: Patient was evaluated the last time i saw her, for neck, pain. In the differential was possible lemierrs syndrome But her carotids and the neck CT was normal, Discussed the test results in detail She said that the tramadol did not work for her so ,i gave her some etodolac to be taken with some food. She did want me to increase her amitryptilline to 3 times a day ,but i explained that Dr. Ny seems to be trying to wean her off of it and it would not be appropriate if i mad e changes with out his knowledge, i asked her to contact him for that. 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 06/29/2005 12/23/19 07 Abdominal pain, right lower quadrant 12/28/2012 Constipation 06/01/2013 documented as of this encounter (statuses as of 06/26/2023) [facility] History of Past illness Narrative* Problem Noted Date Diagnosed Date Resolved Date Elevated lactic acid level 04/23/2016 1 10/18/2015 Right upper quadrant abdominal pain 01/21/2016 03/16/2017 Transaminitis 01/21/2016 03/16/2017 Constipation 01/17/2015 03/16/2017 Neck pain, musculoskeletal 08/16/2014 1 10/18/2015 Last Assessment & Plan: Patient was evaluated the last time i saw her, for neck, pain. In the differential was possible lemierrs syndrome But her carotids and the neck CT was normal, Discussed the test results in detail She said that the tramadol did not work for her so ,i gave her some etodolac to be taken with some food. She did want me to increase her amitryptilline to 3 times a day ,but i explained that Dr. Ny seems to be trying to wean her off of it and it would not be appropriate if i mad e changes with out his knowledge, i asked her to contact him for that. 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 06/29/2005 12/23/19 07 Abdominal pain, right lower quadrant 12/28/2012 Constipation 06/01/2013 documented as of this encounter (statuses as of 08/08/2023) [facility] note* Diagnosis Pain of finger of right hand- Primary Pain in limb documented in this encounter [facility] note* Diagnosis Closed displaced fracture of middle phalanx of right little finger with routine healing, subsequent encounter- Primary Morbid obesity (HCC) Morbid obesity [facility]* Diagnosis Pain of finger of right hand Pain in limb documented in this encounter [facility] for referral (narrative)* Diagnostic Procedure Only (Routine) - Pending Review Specialty Diagnoses / Procedures Referred By Boris olguin Referred To Contact XR IMAGING Diagnoses Pain of finger of right hand Procedures XR DIGIT GENERAL 3V FRONTAL/LAT/OBL RIGHT RADEX FINGR MINIMUM 2 VIEWS Nusrat Leo MD [address] [place] [address] [place] [address] Referral ID Status Reason Start Date Expiration Date Visits Requested Visits Authorized [id number] Pending Review Auto-Generat ed Referral 05/26/2023 06/24/2024 1 1 [facility] for referral (narrative)* Diagnostic Procedure Only (Routine) - Closed Specialty Diagnoses / Procedures Referred By Boris olguin Referred To Contact XR IMAGING Diagnoses Pain of finger of right hand Procedures XR DIGIT GENERAL 3V FRONTAL/LAT/OBL RIGHT RADEX FINGR MINIMUM 2 VIEWS Nusrat Leo MD [address] [place] [address] [place] [address] Referral ID Status Reason Start Date Expiration Date V isits Requested Visits Authorized [id number] Closed Auto-Generate d Referral 05/26/2023 06/24/2024 1 1 [facility] for visit Narrative* Diagnostic Procedure Only (Routine) - Closed Specialty Diagnoses / Procedures Referred By Contac t Referred To Contact XR IMAGING Diagnoses Pain of finger of right hand Procedures XR DIGIT GENERAL 3V FRONTAL/LAT/OBL RIGHT RADEX FINGR MINIMUM 2 VIEWS Nusrat Leo MD [address] [place] [address] Xr Imaging [place] [id number] Referral ID Status Reason Start Date Expiration Date V isits Requested Visits Authorized [id number] Closed Auto-Generate d Referral 05/26/2023 06/24/2024 1 1 [facility] Summary Purpose Family History No Family History Records FoundNo Family History Records FoundNo Family History Records FoundNo Family History Records FoundNo Family History Records Found Advance Directives No Advanced Directives Records FoundNo Advanced Directives Records FoundNo Advanced Directives Records FoundNo Advanced Directives Records FoundNo Advanced Directives Records Found Reason for Referral Specialty Diagnoses / Procedures Referred By Contac t Referred To Contact [facility] Diagnoses Closed displaced fracture of middle phalanx of right little finger with routine healing, subsequent encounter Procedures 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 THERAPY EVAL HIGH COMPLEX 60 MINS Nusrat Leo MD [address] [place] [address] [facility] [place] [address] [place] [address] Referral ID Status Reason Start Date Expiration Date Visits Requested Visits Authorized [id number] Pending Review Auto-Generat ed Referral 05/31/2023 05/30/2024 1 1 Additional Source Comments INFORMATION SOURCE (unrecogn ized section and content) DATE CREATED AUTHOR AUTHOR'S ORGANIZ ATION 03/28/2018 [facility] DATE CREATED AUTHOR AUTHOR'S ORGANIZ ATION 10/12/2018 [facility] ([place]) DATE CREATED AUTHOR AUTHOR'S ORGANIZ ATION 11/04/2022 [facility] DATE CREATED AUTHOR AUTHOR'S ORGANIZ ATION 06/27/2023 [facility] Source Comments (unrecognize d section and content) In the event this informatio n is protected by the Federal Confidentiality of Alcohol and Drug Abuse Patient Records regulations: The Federal rules restrict any use of the information to criminally investigate or prosecute any alcohol or drug abuse patient.[facility] the event this information is protected by the Federal Confidentiality of Alcohol and Drug Abuse Patient Records regulations: The Federal rules restrict any use of the information to criminally investigate or prosecute any alcohol or drug abuse patient.[facility] the event this information is protected by the Federal Confidentiality of Alcohol and Drug Abuse Patient Records regulations: The Federal rules restrict any use of the information to criminally investigate or prosecute any alcohol or drug abuse patient.[facility] Care Teams (unrecognized sec tion and content) Skein Inspector Relationship Specialty Start Date End Date Kenneth Cohn DO [address] [place] [address] PCP - General Family Medicine 08/03/17 Casimiro Cardoza MD [address] [place] [address] Specialty Test Designer Pulmonary and Critical Care Medicine 05/09/16 [place] [address] [place], [place] [id number] Specialty Test Designer Endocrinology 12/17/16 Vijaya /communication manager [employer] Registered Nurse 12/17/15 Darby Olson [employer] Town Administrator Other 05/01/16 [facility] Registered Nurse 12/17/16 [employer] Transportation Provider 12/17/16 Skein Inspector Relationship Specialty Start Date End Date Kenneth Cohn DO [address] [place], [place] [address] PCP - General Family Medicine 08/03/17 Casimiro Cardoza MD [address] [place], [place] [id number] Specialty Test Designer Pulmonary and Critical Care Medicine 05/09/16 [place] [address] [place] [address] Specialty Test Designer Endocrinology 12/17/16 Vijaya /communication manager [employer] Registered Nurse 12/17/15 Darby Olson PASSP[employer] Town Administrator Other 05/01/16 [facility] Registered Nurse 12/17/16 [employer] Transportation Provider 12/17/16 Reason for Visit (unrecogniz ed section and content) FOR RECORDS PERTAINING TO PATIENTS WHO ARE OR HAVE BEEN ENROLLED IN A CHEMICAL DEPENDENCY/SUBSTANCEABUSE PROGRAM, SOME INFORMATION MAY BE OMITTED. This clinical summary was aggregated from multiple sources. Caution should be exercised in using it in the provision of clinical care. This summary normalizes information from multiple sources, and as a consequence, information in this document may materially change the coding, format and clinical context of patient data. In addition, data may be omitted in some cases. CLINICAL DECISIONS SHOULD BE BASED ON THE PRIMARY CLINICAL RECORDS. [employer] [facility]. provides no warranty or guarantee of the accuracy or completeness of information in this document.
[2023-10-09 01:53] LABS: Absolute Lymphocyte Count 0.91 X10^3/uL (0.83-4.51); Absolute Neutrophil Count 13.9 X10^3/uL (2.0-7.7); Basophil# 0.04 X10^3/uL; Basophil% 0.3 % (0-1); Eosinophil# 0.02 X10^3/uL; Eosinophils% 0.1 % (0-5); Hematocrit 49.1 % (37-47); Hemoglobin 16.2 g/dL (12.0-15.0); Lymphocyte # 0.91 X10^3/ul (0.83-4.51); Lymphocyte % 5.9 % (19-41); Mean Corpuscular Volume 81.7 fL (81-99); Mean Platelet Vol. 9.9 fl (6.2-12.0); Monocyte# 0.58 X10^3/uL; Monocyte% 3.7 % (0-10); NRBC Flagged by Analyzer 0 % (0-5); Neutrophil # 13.91 X10^3/uL (2.7-7.7); Neutrophil % 89.6 % (47-70); Platelet Count 271 K/mm3 (150-450); RBC Distribution Width CV 13.5 % (11.6-14.6); RBC Distribution Width SD 38.7 fl (35.1-43.9); Red Blood Count 6.01 M/mm3 (4.2-5.4); White Blood Count 15.5 K/mm3 (4.4-11.0)
[2023-10-09] MEDS: Ondansetron 4 MG/2 ML Vial IV (02:00)
[2023-10-09] MEDS: Dicyclomine 10 MG Capsule 20 MG PO (02:00)
[2023-10-09 02:10] LABS: AST(SGOT) 37 U/L (15-37); Alanine Aminotransfer ALT/SGPT 63 U/L (13-56); Albumin, Serum 3.9 g/dL (3.2-5.0); Alkaline Phosphatase 87 U/L (45-117); Anion Gap 8 (5-15); BUN 15 mg/dL (7-18); BUN/Creat Ratio 12.8 RATIO (10-20); Calcium,Total 9.5 mg/dL (8.5-10.1); Chloride 101 mmol/L (98-107); Creatinine, Serum 1.17 mg/dL (0.55-1.02); EST Glomerular Filtration Rate 54 mL/min (>60); Est Glom Filt Rate - Afr Amer 66 mL/min (>60); Globulin 4.7 g/dL (2.2-4.2); Glucose 190 mg/dL (74-106); Lipase 25 U/L (13-75); Potassium 3.9 mmol/L (3.5-5.1); Protein, Total 8.6 g/dL (6.4-8.2); Sodium Level 137 mmol/L (136-145)
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
[2023-10-09 02:34] VITALS: BP 134/74; PULSE 79
== END 2023-10-09 02:36 | disposition home or self-care (01) ==
PROVIDERS: Emergency Provider Emergency Medicine; PCP Family Medicine; Visit Provider Emergency Medicine
DX: R11.2 Nausea with vomiting, unspecified (principal); J44.9 Chronic obstructive pulmonary disease, unspecified; E11.40 Type 2 diabetes mellitus with diabetic neuropathy, unspecified; J96.11 Chronic respiratory failure with hypoxia; E66.01 Morbid (severe) obesity due to excess calories; Z68.41 Body mass index [BMI] 40.0-44.9, adult; E86.0 Dehydration; R19.7 Diarrhea, unspecified; I10 Essential (primary) hypertension; Z79.85 Long-term (current) use of injectable non-insulin antidiabetic drugs; Z79.899 Other long term (current) drug therapy; E78.5 Hyperlipidemia, unspecified; G47.33 Obstructive sleep apnea (adult) (pediatric)
CPT/HCPCS: 80048; 80076; 83690; 85025; 96361; 96374; 99283; J7030; A4216; J2405

== ENCOUNTER 2023-11-17 06:08 | Emergency (ER) | payer MEDICARE, MEDICAID, SELFPAY ==
[2023-11-17 06:08] VITALS: BP 197/100; PULSE 120; RESP 23; TEMP 39.5; O2SAT 93; BMI 33.3
--- NOTE | 2023-11-17 06:27 | RAD_ITS ---
INDICATION: cough sob fever EXAMINATION/TECHNIQUE: X-RAY - XR Chest 2 Views COMPARISON: Two-view chest x-ray from 07/28/2023 FINDINGS: LINES/DEVICES: None. LUNGS: No pulmonary edema or focal airspace consolidation. No sizable pleural effusion. No pneumothorax detected. Stable mildly elevated left hemidiaphragm. MEDIASTINUM AND CARDIOVASCULAR STRUCTURES: Heart size within normal limits. Mediastinal contours unremarkable. BONES AND SOFT TISSUES: No acute findings. RAD/Chest PA and Lateral IMPRESSION: No radiographic evidence of acute cardiopulmonary disease. Electronically Signed: Asim Arriaga MD at 7:23 EST ,
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
[2023-11-17] MEDS: Albuterol 2.5 MG/3 ML VIAL.NEB. INHALATION (06:34)
[2023-11-17] MEDS: Ipratropium/Albuterol Sulfate 3 ML AMPUL.NEB INHALATION (06:34)
[2023-11-17 06:39] VITALS: PULSE 120; RESP 20
[2023-11-17] MEDS: Ibuprofen 600 MG Tablet PO (06:49)
[2023-11-17] MEDS: MethylPREDNISolone 125 MG/2 ML Vial IV (06:49)
[2023-11-17 06:52] VITALS: BP 183/110; PULSE 136; RESP 24; O2SAT 96
--- OUTSIDE RECORDS SUMMARY | 2023-11-17 06:53 | XMS RPT_ITS | CCD ---
Author Name Unknown Address [id number] [place] [address] Organization [facility] Care Team Providers Care Medical Scheduler Name Role Phone Roof PARACHUTE/COMBATANT DIVER OFFICER, Franklyn Valero Unavailable Kathryn Ravi Unavailable Unavailable CHRIS BURNETTE () Unavailable Unavailable CHRIS BURNETTE) Unavailable Unavailable TERI TY Unavailable Unavailable RAGCLAUDIANATHAN, STEPHEN Unavailable Unavailable VICENTE SELLERS Unavailable Unavailable RAGANDRESSA, STEPHEN Unavailable Unavailable VICENTE SELLERS Unavailable Unavailable Kathryn Ravi Unavailable Unavailable Casimiro Cardoza MD Unavailable Anshu Fry MD, Lena Unavailable [phone] Kenneth Cohn DO Primary Care Provider NUSRAT LEO Attending Unavailable ARMANDO ZENG JR Referring Unavailable KENNETH COHN Primary Care Unavailable NUSRAT LEO Referring Unavailable KENNETH COHN Primary Care Unavailable Allergies Allergy Classification Reported Allergen(s) Allergy Type Date of Onset Reaction(s) Facility (2 sources) acetaminophen / HYDROcodone drug allergy 7 [facility] Work Phone: (8 sources) nabumetone; Translations: [NABUMETONE] drug allergy 6 Swelling [facility] Work Phone: (3 sources) penicillin drug allergy 3 Swelling & shortness of breath [facility] Work Phone: (5 sources) acetaminophen / HYDROcodone; Translations: [HYDROCODONE-ACET AMINOPHEN] Drug Allergy 6 Rash, Itching [facility] Repository (5 sources) Penicillins; Translations: [PENICILLINS] Propensity to adverse reactions to drug (disorder) 5 Swelling, Shortness of Breath [facility] Medications Completed/Discontinued Medications Medication Drug Class(es) Dates Sig (Normalized) Sig (Original) Acetaminophen / HYDROcodone (5 sources) Opioid Agonist End: 04-29-2017 take 1-2 tablets by mouth every six hours as needed for pain HYDROCODONE-ACETAM INOPHEN 5-500 MG TABS 1-2 tabs by mouth every 6 hrs as needed for pain HYDROCODONE-ACETAM INOPHEN [id number] Kathryn Cota Trav Problems Active Problems Problem [...] 10:21-0400 BMI (Body Mass Index) 38.93 kg/m2 [facility] Work Phone: 02-07-2013 10:21-0400 Body Temperature 97.5 [degF] [facility] Work Phone: 02-07-2013 10:21-0400 BP Diastolic 86 mm[Hg] [facility] Work Phone: 02-07-2013 10:21-0400 BP Systolic 138 mm[Hg] [facility] Work Phone: 02-07-2013 10:21-0400 BSA (Body Surface Area) 2.28 m2 [facility] Work Phone: 02-07-2013 10:21-0400 Pulse (Heart Rate) 78 /min [facility] Work Phone: 02-07-2013 10:21-0400 Respiratory Rate 16 /min [facility] Work Phone: 02-07-2013 10:21-0400 Weight 116.58 kg [facility] Work Phone: 10-18-2012 11:21-0500 Height 173.35 cm Kathryn York [facility] Work Phone: Encounters Encounter Date Encounter Type Care Provider Facility Start: 05-31-2023 End: 05-31-2023 ambulatory NUSRAT LEO Facility:[facility] Start: 05-31-2023 End: 05-31-2023 Patient encounter procedure Nusrat Leo MD Work Phone: Orthopaedics Procedures Date Procedure Procedure Detail Performing Clinician Start: 05-31-2023 Radex fingr minimum 2 views Nusrat Leo MD Work Phone: Plan of Treatment Date Care Activity Detail Author Start: 2047 PNEUMOCOCCAL (3 - PPSV23 or PCV20) PNEUMOCOCCAL (3 - PPSV23 or PCV20) [facility] Start: 2047 Pneumococcal vaccination Pneumococcal Vaccine (3 - PPSV23 or PCV20) [facility] Start: 06-04-2023 Covid-19 Vaccine () Covid-19 Vaccine () [facility] Start: 06-04-2023 Influenza vaccination [facility] Start: 2022 Mammography [facility] Start: 10-04-2022 DEPRESSION ASSESSMENT DEPRESSION ASSESSMENT [facility] Start: 08-07-2021 Covid-19 Vaccine (3 - Moderna series) Covid-19 Vaccine (3 - Moderna series) [facility] Start: 06-29-2021 HPV TESTING HPV TESTING [facility] Start: 06-29-2021 PAP TESTING PAP TESTING [facility] Start: 05-19-2019 3 comp foot exam completed DIABETIC FOOT EXAM [facility] Start: 04-29-2019 Urine microalbumin profile [facility] Start: 03-15-2018 Hepatitis B screening URINE ALBUMIN:CREATININE RATIO [facility] Start: 03-15-2018 Hepatitis B surface antibody level LDL CHOLESTEROL [facility] Start: 09-14-2017 Hemoglobin A1c/Hemoglobin.total in Blood HBA1C [facility] Start: 06-17-2017 End: 06-17-2017 Appointment Appointment [facility] orlin Briceno Work Phone: Start: 06-03-2017 End: 06-03-2017 Appointment Appointment [facility]riceno Work Phone: Start: 05-07-2017 Hepatitis C antibody, confirmatory test DILATED RETINAL EXAM [facility] Start: 2000 ANNUAL PCP TEAM CHRONIC DISEASE VISIT ANNUAL PCP TEAM CHRONIC DISEASE VISIT [facility] Start: 2000 BP CONTROLLED (<130/80) BP CONTROLLED (<130/80) [facility] Start: 04-29-1983 COVID-19 VACCINE (#1) COVID-19 VACCINE (#1) [facility] Start: 1982 HEPATITIS B (1 of 3 - 3-dose series) HEPATITIS B (1 of 3 - 3-dose series) [facility] Start: 1982 Hepatitis B Vaccine (1 of 3 - 3-dose series) Hepatitis B Vaccine (1 of 3 - 3-dose series) [facility] End: 06-24-2024 XR DIGIT GENERAL 3V FRONTAL/LAT/OBL RIGHT XR DIGIT GENERAL 3V FRONTAL/LAT/OBL RIGHT Radiology Routine Pain of finger of right hand 1 Occurrences starting 05/26/2023 until 06/24/2024 [facility] Work Phone: Immunizations Immunization Date Immunization Notes Care Provider Fa kylie 07-16-2022 influenza virus vacc ine, unspecified formulation Nusrat Leo MD Work Phone: [facility] 08-04-2016 pneumococcal conjuga te vaccine, 13 valent Nusrat Leo MD Work Phone: [facility] Work Phone: 06-30-2016 influenza, injectabl e, quadrivalent, contains preservative Nusrat Leo MD Work Phone: [facility] 08-18-2015 influenza, seasonal, injectable Nusrat Leo MD Work Phone: [facility] 07-04-2014 influenza, seasonal, injectable Nusrat Leo MD Work Phone: [facility] 06-28-2012 influenza virus vacc ine, unspecified formulation Nusrat Leo MD Work Phone: [facility] Work Phone: 08-12-2010 influenza virus vacc ine, unspecified formulation Nusrat Leo MD Work Phone: [facility] 07-26-2009 influenza virus vacc ine, unspecified formulation Nusrat Leo MD Work Phone: [facility] Work Phone: 04-29-2009 tetanus toxoid, redu andrés diphtheria toxoid, and acellular pertussis vaccine, adsorbed Nusrat Leo MD Work Phone: [facility] Work Phone: 08-08-2007 influenza virus vacc ine, unspecified formulation Nusrat Leo MD Work Phone: [facility] Work Phone: 10-03-2003 pneumococcal polysaccharide vaccine, 23 valent Nusrat Leo MD Work Phone: [facility] Payers Date Payer Category Payer Medicaid [facility] MEDICAID [id number] 2015-Present [phone] [address] [place] [address] Medicaid [id number] 2015 Medicare [employer] [facility] MEDICARE [id number] 2015-Present [phone] [address] [place] [address] Medicare [id number] 2015 Unknown [id number] 1982 Unknown [id number] 1982 Unknown [id number] 1982 Unknown [id number] Social History Date Type Detail Facility Start: 04-22-2011 Tobacco smoking stat [facility] Never smoked tobacco [facility] Work Phone: Start: 04-22-2011 Tobacco use and exposure Smokeless tobacco non-user [facility] Work Phone: Start: 05-01-2021 End: 05-31-2023 Alcohol intake Current non-drinker of alcohol (finding) [facility] Start: 05-01-2021 End: 05-10-2023 History of Social function [facility] Start: 05-01-2021 End: 05-10-2023 Tobacco use panel [facility] Adult Depression Screening Assessment 0 [facility] Start: 1980 Sex Assigned At Not on file [facility] Medical Equipment Procedure Code Equipment Code Equipment Origin al Text Equipment Identifier Dates Start: 05-28-2016 Goals Date Patient Goal Desired Activity /State Personal health goal Clinical Notes 04-23-2016 to 05-31-2023 Nusrat Leo MD - 05/31/2023 2:03 PM EDTMMeena lucero RT(R) - 05/31/2023 1:20 PM EDT Note Date & Type Note Facility 05-31-2023 Note HNO ID: [id number] Author: Nusrat Leo MD Service: ? Author Type: Physician Type: Progress Notes Filed: 06/25/2023 3:36 PM Note Text: Nusrat Leo MD Department of Orthopaedics Orthopa[facility] [address] [facility] [address] Dept: [phone] Dept June 25, 2023 CHIEF COMPLAINT: New and Fracture of the Right Little Finger (Referred by Dr Zeng. Xrays taken 05/07/2023 and 04/30/23 at [facility]) HPI Patient presents with: Right Little Finger - New, Fracture: Referred by Dr Zeng. Xrays taken 05/07/2023 and 04/30/23 at [facility] Patient reports pain in the right 5th [...] Frequency: Continuous Intervention/Comfort measure: Medication, Reposition ASSESSMENT: S62.286D Closed displaced fracture of middle phalanx of [...] IMPRESSION: Fifth digit fracture as described above. Clinical Care Coordinator: KIMBER Transcribe Date/Time: Jun 02 2023 8:52A [...] DX W/COLLJ SPEC WHEN PFRMD 02/05/16 Colonoscopy -[facility] CYSTOSCOPY 02/11/2016 EGD DILATION GASTRIC/DUODENAL STRICTURE 04/28/2016 EXC TUMOR SOFT TISSUE ABDL WALL SUBFASCIAL <5CM 01-25-07 x2 EXCISION ABD WALL TUMOR SUBFASCIAL endometrioma, Right lower quadrant IMBRICATION DIAPHRAGM EVENTRATION 1982 Congenital diaphragmatic hernia LIG/TRNSXJ FLP TUBE ABDL/VAG APPR UNI/BI 2004 Tubal ligation NEUROPLASTY AND/TRANSPOS MEDIAN NRV CARPAL TUNNE OPTX DIRECTOR OF FLIGHT OPERATIONS FEM EPIPHYSIS OSTEOTANDINT FIXJ PAST SURGICAL HISTORY OF x 9 surgeries as a baby PAST SURGICAL HISTORY OF 02/2009 oral surgery right wisdom teeth extracted PAST SURGICAL HISTORY OF Bilateral Bilatera (more content not included)... [facility] 05-31-2023 Note HNO ID: [id number] Author: Meena Peoples RT(R) Service: ? Author [...] Peoples RT(R) May 31, 2023 1:36 PM [facility] 05-31-2023 History of Present illness Narrative Nusrat Leo MD Department of Orthopaedics Orthopaedics [address] [facility] [address] Dept: [phone] Dept June 25, 2023 CHIEF COMPLAINT: New and Fracture of the Right Little Finger (Referred by Dr Zeng. Xrays taken 05/07/2023 and 04/30/23 at [facility]) HPI Patient presents with: Right Little Finger - New, Fracture: Referred by Dr Zeng. Xrays taken 05/07/2023 and 04/30/23 at [facility] Patient reports pain in the right 5th [...] IMPRESSION: Fifth digit fracture as described above. Clinical Care Coordinator: KIMBER Transcribe Date/Time: Jun 02 2023 8:52A [...] DX W/COLLJ SPEC WHEN PFRMD 02/05/16 Colonoscopy -[facility] CYSTOSCOPY 02/11/2016 EGD DILATION GASTRIC/DUODENAL STRICTURE 04/28/2016 EXC TUMOR SOFT TISSUE ABDL WALL SUBFASCIAL <5CM 01-25-07 x2 EXCISION ABD WALL TUMOR SUBFASCIAL endometrioma, Right lower quadrant IMBRICATION DIAPHRAGM EVENTRATION 1982 Congenital diaphragmatic hernia LIG/TRNSXJ FLP TUBE ABDL/VAG APPR UNI/BI 2004 Tubal ligation NEUROPLASTY &/TRANSPOS MEDIAN NRV CARPAL TUNNE OPTX DIRECTOR OF FLIGHT OPERATIONS FEM EPIPHYSIS OSTEOT&INT FIXJ PAST SURGICAL HISTORY [...] nostril once daily. Rinse mouth after use. multivitamin,ak-xoed-msitnqfx (THERAGRAN M) tab Take 1 tablet by [...] (Patient not taking: Reported on 05/31/2023) Insulin Naylor, Disposable, (BD ULTRAFINE III MINI PEN) 31 [...] for this visit. Allergies: Nabumetone, Penicillins, and [place] [Hydrocodone-Acetaminophen] ROS: General (negative for fatigue, malaise, [...] US mail. Armando Zeng Jr, MD [address] [facility] [address] [facility] [address] Kenneth Cohn DO [address] [facility] [address] [facility] [address] Nusrat Leo MD documented in this encounter [facility] 05-31-2023 History of Present illness Narrative [...] 2023 1:36 PM documented in this encounter [facility] documented as of this encounter (statuses as of 05/26/2023) [facility]07-21-2016 History of Past illness Narrative* Problem [...] of this encounter (statuses as of 06/26/2023) [facility] History of Past illness Narrative* Problem [...] of this encounter (statuses as of 08/08/2023) [facility] note* Diagnosis Pain of finger of right hand- Primary Pain in limb documented in this encounter [facility] note* Diagnosis Closed displaced fracture of middle phalanx of right little finger with routine healing, subsequent encounter- Primary Morbid obesity (HCC) Morbid obesity [facility] Diagnosis Pain of finger of right hand Pain in limb documented in this encounter [facility] for referral (narrative)* Diagnostic Procedure Only (Routine) - Pending Review Specialty Diagnoses / Procedures Referred By Boris olguin Referred To Contact XR IMAGING Diagnoses Pain of finger of right hand Procedures XR DIGIT GENERAL 3V FRONTAL/LAT/OBL RIGHT RADEX FINGR MINIMUM 2 VIEWS Nusrat Leo MD [address] [place] [address] [place] [address] Referral ID Status Reason Start Date Expiration Date Visits Requested Visits Authorized [id number] Pending Review Auto-Generat ed Referral 05/26/2023 06/24/2024 1 1 [facility] for referral (narrative)* Diagnostic Procedure Only (Routine) - Closed Specialty Diagnoses / Procedures Referred By Boris olguin Referred To Contact XR IMAGING Diagnoses Pain of finger of right hand Procedures XR DIGIT GENERAL 3V FRONTAL/LAT/OBL RIGHT RADEX FINGR MINIMUM 2 VIEWS Nusrat Leo MD [address] [place] [address] [place] [address] Referral ID Status Reason Start Date Expiration Date V isits Requested Visits Authorized [id number] Closed Auto-Generate d Referral 05/26/2023 06/24/2024 1 1 [facility] for visit Narrative* Diagnostic Procedure Only (Routine) - Closed Specialty Diagnoses / Procedures Referred By Contac t Referred To Contact XR IMAGING Diagnoses Pain of finger of right hand Procedures XR DIGIT GENERAL 3V FRONTAL/LAT/OBL RIGHT RADEX FINGR MINIMUM 2 VIEWS Nusrat Leo MD [address] [place] [address] Xr Imaging [place] [address] Referral ID Status Reason Start Date Expiration Date V isits Requested Visits Authorized [id number] Closed Auto-Generate d Referral 05/26/2023 06/24/2024 1 1 [facility] Summary Purpose Family History No Family [...] routine healing, subsequent encounter Procedures CONSULT TO ELECTRONIC CONSOLE DISPLAY OPERATOR 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 THERAPY EVAL HIGH COMPLEX 60 MINS Nusrat Leo MD [address] [place] [address] [facility] [place] [address] [place] [address] Referral ID Status Reason Start Date Expiration Date Visits Requested Visits Authorized [id number] Pending Review Auto-Generat ed Referral 05/31/2023 05/30/2024 1 1 Additional Source Comments INFORMATION SOURCE (unrecogn ized section and content) DATE CREATED AUTHOR AUTHOR'S ORGANIZ ATION 03/28/2018 [facility] DATE CREATED AUTHOR AUTHOR'S ORGANIZ ATION 10/12/2018 [facility] ([place] DATE CREATED AUTHOR AUTHOR'S ORGANIZ ATION 11/04/2022 [facility] DATE CREATED AUTHOR AUTHOR'S ORGANIZ ATION 06/27/2023 [facility] Source Comments (unrecognize d section and content) In the event this informatio n is protected by the Federal Confidentiality of Alcohol and Drug Abuse Patient Records regulations: The Federal rules restrict any use of the information to criminally investigate or prosecute any alcohol or drug abuse patient.[facility] the event this information is protected by the Federal Confidentiality of Alcohol and Drug Abuse Patient Records regulations: The Federal rules restrict any use of the information to criminally investigate or prosecute any alcohol or drug abuse patient.[facility] the event this information is protected by the Federal Confidentiality of Alcohol and Drug Abuse Patient Records regulations: The Federal rules restrict any use of the information to criminally investigate or prosecute any alcohol or drug abuse patient.[facility] Care Teams (unrecognized sec tion and content) Medical Scheduler Relationship Specialty Start Date End Date Kenneth Cohn DO [address] [place] [address] PCP - General Family Medicine 08/03/17 Casimiro Cardoza MD [address] [place] [address] Specialty [facility] Pulmonary and Critical Care Medicine 05/09/[address] [place] [address] [place], [place] [id number] Specialty [facility] Endocrinology 12/17/16 Vijaya /manager scheduling [employer] Registered Nurse 12/17/15 Darby Olson [employer] Certified Surgical First Assistant Other 05/01/16 [facility] Registered Nurse 12/17/16 [employer] Transportation Provider 12/17/16 Medical Scheduler Relationship Specialty Start Date End Date Kenneth Cohn DO [address] [place], [place] [address] PCP - General Family Medicine 08/03/17 Casimiro Cardoza MD [address] [place], [place] [address] Specialty [facility] Pulmonary and Critical Care Medicine 05/09/16 [place] [address] [place] [address] Specialty [facility] Endocrinology 12/17/16 Vijaya /manager scheduling [employer] Registered Nurse 12/17/15 Darby Olson [employer] Certified Surgical First Assistant Other 05/01/16 [facility] Registered Nurse 12/17/16 [employer] Transportation Provider [...] BE BASED ON THE PRIMARY CLINICAL RECORDS. [facility] [facility]. provides no warranty or guarantee of the accuracy or completeness of information in this document.
[2023-11-17 07:46] VITALS: BP 164/76; PULSE 120; RESP 16; TEMP 37.7; O2SAT 99
== END 2023-11-17 07:56 | disposition home or self-care (01) ==
PROVIDERS: Emergency Provider Emergency Medicine; PCP Family Medicine; Visit Provider Emergency Medicine
DX: J10.1 Influenza due to other identified influenza virus with other respiratory manifestations (principal); J44.1 Chronic obstructive pulmonary disease with (acute) exacerbation; E11.43 Type 2 diabetes mellitus with diabetic autonomic (poly)neuropathy; J96.11 Chronic respiratory failure with hypoxia; I10 Essential (primary) hypertension; E78.5 Hyperlipidemia, unspecified; G47.33 Obstructive sleep apnea (adult) (pediatric); E66.9 Obesity, unspecified; Z99.81 Dependence on supplemental oxygen; Z79.85 Long-term (current) use of injectable non-insulin antidiabetic drugs; Z79.899 Other long term (current) drug therapy
CPT/HCPCS: 71046; 87631; 94640; 96374; 99284; A4216

== ENCOUNTER 2023-11-26 16:23 | Emergency (ER) | payer MEDICARE, MEDICAID, SELFPAY ==
[2023-11-26 16:25] VITALS: BP 224/137; PULSE 103; RESP 18; TEMP 36.2; O2SAT 97; BMI 40.5
[2023-11-26 16:28] VITALS: BP 209/131; PULSE 108; RESP 18; TEMP 36.2; O2SAT 96
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
--- NOTE | 2023-11-26 17:26 | CT_ITS ---
STUDY: CT BRAIN WITHOUT CONTRAST REASON FOR EXAM: Female, 43 years old. headache, HTN RADIATION DOSAGE (If Supplied By Facility): CTDIvol = ( 44.99 ) mGy, DLP = ( 796.11 ) mGycm TECHNIQUE: Transaxial CT imaging of the brain was performed without administration of intravenous contrast material. Individualized dose optimization techniques were used for this CT. COMPARISON: 04/27/2023 FINDINGS: Normal soft tissue structures. Normal calvarium. Normal size ventricles and extra-axial spaces for the patient''s age. Normal white matter tracts of the cerebral hemispheres. Normal basal ganglia and thalami. Normal brainstem. Normal cerebellum. There is no intracranial hemorrhage. There are no findings of an acute ischemic infarction. Normal visualized paranasal sinuses. CT/Brain/Head without Contrast IMPRESSION: No definite acute or significant abnormality seen. No definite change. Electronically Signed: Dwight Ross MD at 18:26 EST ,
[2023-11-26 17:33] LABS: Absolute Lymphocyte Count 3.28 X10^3/uL (0.83-4.51); Absolute Neutrophil Count 7.7 X10^3/uL (2.0-7.7); Basophil# 0.05 X10^3/uL; Basophil% 0.4 % (0-1); Eosinophil# 0.06 X10^3/uL; Eosinophils% 0.5 % (0-5); Hematocrit 44.6 % (37-47); Hemoglobin 14.7 g/dL (12.0-15.0); Lymphocyte # 3.28 X10^3/ul (0.83-4.51); Mean Corpuscular Volume 81.8 fL (81-99); Mean Platelet Vol. 9.2 fl (6.2-12.0); Monocyte# 0.93 X10^3/uL; Monocyte% 7.7 % (0-10); NRBC Flagged by Analyzer 0 % (0-5); Neutrophil # 7.68 X10^3/uL (2.7-7.7); Neutrophil % 63.2 % (47-70); Platelet Count 243 K/mm3 (150-450); RBC Distribution Width CV 13.2 % (11.6-14.6); RBC Distribution Width SD 39.2 fl (35.1-43.9); Red Blood Count 5.45 M/mm3 (4.2-5.4); White Blood Count 12.1 K/mm3 (4.4-11.0)
[2023-11-26] MEDS: 0.9% Normal Saline (500mL Bag) 500 ML 999 ML IV (17:38)
[2023-11-26] MEDS: Ketorolac 15 MG/ML Vial IV (17:39)
[2023-11-26] MEDS: proCHLORPERazine 10 MG/2 ML Vial 5 MG IV (17:40)
[2023-11-26] MEDS: DiphenhydrAMINE 50 MG/ML Syringe 25 MG IV (17:41)
[2023-11-26] MEDS: Labetalol (Prefilled) 20 MG/4 ML 10 MG IV ×2 (17:43→19:04)
[2023-11-26 17:50] LABS: Anion Gap 4 (5-15); BUN 10 mg/dL (7-18); Calcium,Total 8.7 mg/dL (8.5-10.1); Chloride 104 mmol/L (98-107); Creatinine, Serum 0.91 mg/dL (0.55-1.02); EST Glomerular Filtration Rate 72 mL/min (>60); Est Glom Filt Rate - Afr Amer 88 mL/min (>60); Glucose 225 mg/dL (74-106); Potassium 3.2 mmol/L (3.5-5.1); Sodium Level 140 mmol/L (136-145)
--- NOTE | 2023-11-26 18:03 | RAD_ITS ---
STUDY: X-RAY CHEST REASON FOR EXAM: Female, 43 years old. Cough TECHNIQUE: Single AP portable view of the chest. COMPARISON: 11/17/2023 FINDINGS: Stable elevation of the left hemidiaphragm. No definite focal infiltrates. No definite. There is borderline cardiomegaly. Normal mediastinum and cherelle. Normal visualized pulmonary arteries. Normal visualized aortic arch and descending thoracic aorta. Normal visualized thoracic spine. Normal visualized ribs, clavicles, and shoulders. There is no demonstrated abnormality of the visualized soft tissue structures of the upper abdomen. RAD/Chest 1 View (Portable) IMPRESSION: No definite acute chest disease. Electronically Signed: Dwight Ross MD at 18:32 EST ,
[2023-11-26 18:24] VITALS: BP 170/107; PULSE 76; RESP 19; O2SAT 93
[2023-11-26 19:08] VITALS: BP 155/103; PULSE 74; RESP 20; O2SAT 94
--- OUTSIDE RECORDS SUMMARY | 2023-11-26 19:10 | XMS RPT_ITS | CCD ---
Author Name Unknown Address [address] [place] [address] Organization [facility] Care Team Providers Care Conveyor Feeder Name Role Phone Roof MEAT PACKER, Franklyn Valero Unavailable Kathryn Ravi Unavailable Unavailable CHRIS BURNETTE () Unavailable Unavailable CHRIS BURNETTE) Unavailable Unavailable TERI TY Unavailable Unavailable RAGCLAUDIANATHAN, STEPHEN Unavailable Unavailable VICENTE SELLERS Unavailable Unavailable RAGANDRESSA, STEPHEN Unavailable Unavailable VICENTE SELLERS Unavailable Unavailable Kathryn Ravi Unavailable Unavailable Casimiro Cardoza MD Unavailable Anshu Fry MD, Lena Unavailable [phone] Kenneth Cohn DO Primary Care Provider NUSRAT LEO Attending Unavailable ARMANDO ZENG JR Referring Unavailable KENNETH COHN Primary Care Unavailable NUSRAT LEO Referring Unavailable KENNETH COHN Primary Care Unavailable Allergies Allergy Classification Reported Allergen(s) Allergy Type Date of Onset Reaction(s) Facility (2 sources) acetaminophen / HYDROcodone drug allergy 7 [facility] Work Phone: (8 sources) nabumetone; Translations: [NABUMETONE] drug allergy 6 Swelling [facility] Work Phone: (3 sources) penicillin drug allergy 3 Swelling & shortness of breath [facility] Work Phone: (5 sources) acetaminophen / HYDROcodone; Translations: [HYDROCODONE-ACET AMINOPHEN] Drug Allergy 6 Rash, Itching [facility] (5 sources) Penicillins; Translations: [PENICILLINS] Propensity to adverse reactions to drug (disorder) 5 Swelling, Shortness of Breath [facility] Medications Completed/Discontinued Medications Medication Drug Class(es) Dates Sig (Normalized) Sig (Original) Acetaminophen / HYDROcodone (5 sources) Opioid Agonist End: 04-29-2017 take 1-2 tablets by mouth every six hours as needed for pain HYDROCODONE-ACETAM INOPHEN 5-500 MG TABS 1-2 tabs by mouth every 6 hrs as needed for pain HYDROCODONE-ACETAM INOPHEN [id number] Kathryn Cota Trav Problems Active Problems Problem [...] 10:21-0400 BMI (Body Mass Index) 38.93 kg/m2 [facility] Work Phone: 02-07-2013 10:21-0400 Body Temperature 97.5 [degF] [facility] Work Phone: 02-07-2013 10:21-0400 BP Diastolic 86 mm[Hg] [facility] Work Phone: 02-07-2013 10:21-0400 BP Systolic 138 mm[Hg] [facility] Work Phone: 02-07-2013 10:21-0400 BSA (Body Surface Area) 2.28 m2 [facility] Work Phone: 02-07-2013 10:21-0400 Pulse (Heart Rate) 78 /min [facility] Work Phone: 02-07-2013 10:21-0400 Respiratory Rate 16 /min [facility] Work Phone: 02-07-2013 10:21-0400 Weight 116.58 kg [facility] Work Phone: 10-18-2012 11:21-0500 Height 173.35 cm Kathryn [facility] Work Phone: Encounters Encounter Date Encounter Type Care Provider Facility Start: 05-31-2023 End: 05-31-2023 ambulatory NUSRAT LEO Facility:[facility] Start: 05-31-2023 End: 05-31-2023 Patient encounter procedure Nusrat Leo MD Work Phone: Orthopaedics Procedures Date Procedure Procedure Detail Performing Clinician Start: 05-31-2023 Radex fingr minimum 2 views Nusrat Leo MD Work Phone: Plan of Treatment Date Care Activity Detail Author Start: 2047 PNEUMOCOCCAL (3 - PPSV23 or PCV20) PNEUMOCOCCAL (3 - PPSV23 or PCV20) [facility] Start: 2047 Pneumococcal vaccination Pneumococcal Vaccine (3 - PPSV23 or PCV20) [facility] Start: 06-04-2023 Covid-19 Vaccine () Covid-19 Vaccine () [facility] Start: 06-04-2023 Influenza vaccination [facility] Start: 2022 Mammography [facility] Start: 10-04-2022 DEPRESSION ASSESSMENT DEPRESSION ASSESSMENT [facility] Start: 08-07-2021 Covid-19 Vaccine (3 - Moderna series) Covid-19 Vaccine (3 - Moderna series) [facility] Start: 06-29-2021 HPV TESTING HPV TESTING [facility] Start: 06-29-2021 PAP TESTING PAP TESTING [facility] Start: 05-19-2019 3 comp foot exam completed DIABETIC FOOT EXAM [facility] Start: 04-29-2019 Urine microalbumin profile [facility] Start: 03-15-2018 Hepatitis B screening URINE ALBUMIN:CREATININE RATIO [facility] Start: 03-15-2018 Hepatitis B surface antibody level LDL CHOLESTEROL [facility] Start: 09-14-2017 Hemoglobin A1c/Hemoglobin.total in Blood HBA1C [facility] Start: 06-17-2017 End: 06-17-2017 Appointment Appointment [facility] orlin [facility]eno Work Phone: Start: 06-03-2017 End: 06-03-2017 Appointment Appointment [facility] Work Phone: Start: 05-07-2017 Hepatitis C antibody, confirmatory test DILATED RETINAL EXAM [facility] Start: 2000 ANNUAL PCP TEAM CHRONIC DISEASE VISIT ANNUAL PCP TEAM CHRONIC DISEASE VISIT [facility] Start: 2000 BP CONTROLLED (<130/80) BP CONTROLLED (<130/80) [facility] Start: 04-29-1983 COVID-19 VACCINE (#1) COVID-19 VACCINE (#1) [facility] Start: 1982 HEPATITIS B (1 of 3 - 3-dose series) HEPATITIS B (1 of 3 - 3-dose series) [facility] Start: 1982 Hepatitis B Vaccine (1 of 3 - 3-dose series) Hepatitis B Vaccine (1 of 3 - 3-dose series) [facility] End: 06-24-2024 XR DIGIT GENERAL 3V FRONTAL/LAT/OBL RIGHT XR DIGIT GENERAL 3V FRONTAL/LAT/OBL RIGHT Radiology Routine Pain of finger of right hand 1 Occurrences starting 05/26/2023 until 06/24/2024 [facility] Work Phone: Immunizations Immunization Date Immunization Notes Care Provider Fa kylie 07-16-2022 influenza virus vacc ine, unspecified formulation Nusrat Leo MD Work Phone: [facility] 08-04-2016 pneumococcal conjuga te vaccine, 13 valent Nusrat Leo MD Work Phone: [facility] Work Phone: 06-30-2016 influenza, injectabl e, quadrivalent, contains preservative Nusrat Leo MD Work Phone: [facility] 08-18-2015 influenza, seasonal, injectable Nusrat Leo MD Work Phone: [facility] 07-04-2014 influenza, seasonal, injectable Nusrat Leo MD Work Phone: [facility] 06-28-2012 influenza virus vacc ine, unspecified formulation Nusrat Leo MD Work Phone: [facility] Work Phone: 08-12-2010 influenza virus vacc ine, unspecified formulation Nusrat Leo MD Work Phone: [facility] 07-26-2009 influenza virus vacc ine, unspecified formulation Nusrat Leo MD Work Phone: [facility] Work Phone: 04-29-2009 tetanus toxoid, redu andrés diphtheria toxoid, and acellular pertussis vaccine, adsorbed Nusrat Leo MD Work Phone: [facility] Work Phone: 08-08-2007 influenza virus vacc ine, unspecified formulation Nusrat eLo MD Work Phone: [facility] Work Phone: 10-03-2003 pneumococcal polysaccharide vaccine, 23 valent Nusrat Leo MD Work Phone: [facility] Payers Date Payer Category [facility]ayer [facility] MEDICAID [id number] 2015-Present [phone] [address] [place] [address] Medicaid [id number] 2015 Medicare [employer] [facility] MEDICARE [id number] 2015-Present [phone] [address] [place] [address] Medicare [id number] 2015 Unknown [id number] 1982 Unknown [id number] 1982 Unknown [id number] 1982 Unknown [id number] Social History Date Type Detail Facility Start: 04-22-2011 Tobacco smoking stat [facility] Never smoked tobacco [facility] Work Phone: Start: 04-22-2011 Tobacco use and exposure Smokeless tobacco non-user [facility] Work Phone: Start: 05-01-2021 End: 05-31-2023 Alcohol intake Current non-drinker of alcohol (finding) [facility] Start: 05-01-2021 End: 05-10-2023 History of Social function [facility] Start: 05-01-2021 End: 05-10-2023 Tobacco use panel [facility] Adult Depression Screening Assessment 0 [facility] Start: 1980 Sex Assigned At Not on file C [facility] Medical Equipment Procedure Code Equipment Code Equipment Origin al Text Equipment Identifier Dates Start: 05-28-2016 Goals Date Patient Goal Desired Activity /State Personal health goal Clinical Notes 04-23-2016 to 05-31-2023 Nusrat Leo MD - 05/31/2023 2:03 PM EDTMMeena lucero RT(R) - 05/31/2023 1:20 PM EDT Note Date & Type Note Facility 05-31-2023 Note HNO ID: [id number] Author: Nusrat Leo MD Service: ? Author Type: Physician Type: Progress Notes Filed: 06/25/2023 3:36 PM Note Text: Nusrat Leo MD Department of Orthopaedics [facility] [address] [facility] [address] Dept: [phone] Dept June 25, 2023 CHIEF COMPLAINT: New and Fracture of the Right Little Finger (Referred by Dr Zeng. Xrays taken 05/07/2023 and 04/30/23 at [facility]) HPI Patient presents with: Right Little Finger - New, Fracture: Referred by Dr Zeng. Xrays taken 05/07/2023 and 04/30/23 at [facility] Patient reports pain in the right [...] Frequency: Continuous Intervention/Comfort measure: Medication, Reposition ASSESSMENT: S62.426D Closed displaced fracture of middle phalanx of [...] IMPRESSION: Fifth digit fracture as described above. Sod Stripper: KIMBER Transcribe Date/Time: Jun 02 2023 8:52A [...] DX W/COLLJ SPEC WHEN PFRMD 02/05/16 Colonoscopy -[facility] CYSTOSCOPY 02/11/2016 EGD DILATION GASTRIC/DUODENAL STRICTURE 04/28/2016 EXC TUMOR SOFT TISSUE ABDL WALL SUBFASCIAL <5CM 01-25-07 x2 EXCISION ABD WALL TUMOR SUBFASCIAL endometrioma, Right lower quadrant IMBRICATION DIAPHRAGM EVENTRATION 1982 Congenital diaphragmatic hernia LIG/TRNSXJ FLP TUBE ABDL/VAG APPR UNI/BI 2004 Tubal ligation NEUROPLASTY AND/TRANSPOS MEDIAN NRV CARPAL TUNNE OPTX TRUCK BENCH MECHANIC FEM EPIPHYSIS OSTEOTANDINT FIXJ PAST SURGICAL HISTORY OF x 9 surgeries as a baby PAST SURGICAL HISTORY OF 02/2009 oral surgery right wisdom teeth extracted PAST SURGICAL HISTORY OF Bilateral Bilatera (more content not included)... [facility] 05-31-2023 Note HNO ID: [id number] Author: Meena Peoples RT(R) Service: ? Author [...] Peoples RT(R) May 31, 2023 1:36 PM [facility] 05-31-2023 History of Present illness Narrative Nusrat Leo MD Department of Orthopaedics [facility] [address] [facility] [address] Dept: [phone] Dept June 25, 2023 CHIEF COMPLAINT: New and Fracture of the Right Little Finger (Referred by Dr Zeng. Xrays taken 05/07/2023 and 04/30/23 at [facility]) HPI Patient presents with: Right Little Finger - New, Fracture: Referred by Dr Zeng. Xrays taken 05/07/2023 and 04/30/23 at [facility] Patient reports pain in the right [...] IMPRESSION: Fifth digit fracture as described above. Sod Stripper: KIMBER Transcribe Date/Time: Jun 02 2023 8:52A [...] DX W/COLLJ SPEC WHEN PFRMD 02/05/16 Colonoscopy -[facility] CYSTOSCOPY 02/11/2016 EGD DILATION GASTRIC/DUODENAL STRICTURE 04/28/2016 EXC TUMOR SOFT TISSUE ABDL WALL SUBFASCIAL <5CM 01-25-07 x2 EXCISION ABD WALL TUMOR SUBFASCIAL endometrioma, Right lower quadrant IMBRICATION DIAPHRAGM EVENTRATION 1982 Congenital diaphragmatic hernia LIG/TRNSXJ FLP TUBE ABDL/VAG APPR UNI/BI 2004 Tubal ligation NEUROPLASTY &/TRANSPOS MEDIAN NRV CARPAL TUNNE OPTX TRUCK BENCH MECHANIC FEM EPIPHYSIS OSTEOT&INT FIXJ PAST SURGICAL HISTORY [...] nostril once daily. Rinse mouth after use. multivitamin,je-blbz-pcmunrhx (THERAGRAN M) tab Take 1 tablet by [...] (Patient not taking: Reported on 05/31/2023) Insulin [place], Disposable, (BD ULTRAFINE III MINI PEN) 31 [...] for this visit. Allergies: Nabumetone, Penicillins, and [place] [Hydrocodone-Acetaminophen] ROS: General (negative for fatigue, malaise, [...] US mail. Armando Zeng Jr, MD [address] [facility] [address] [facility] [address] Kenneth Cohn DO [address] [facility] [address] Nusrat Leo MD documented in this encounter [facility] 05-31-2023 History of Present illness [...] 2023 1:36 PM documented in this encounter [facility] documented as of this encounter (statuses as of 05/26/2023) [facility]07-21-2016 History of Past illness Narrative* Problem [...] of this encounter (statuses as of 06/26/2023) [facility]2016 History of Past illness Narrative* Problem [...] of this encounter (statuses as of 08/08/2023) [facility] note* Diagnosis Pain of finger of right hand- Primary Pain in limb documented in this encounter [facility] note* Diagnosis Closed displaced fracture of middle phalanx of right little finger with routine healing, subsequent encounter- Primary Morbid obesity (HCC) Morbid obesity [facility] Diagnosis Pain of finger of right hand Pain in limb documented in this encounter [facility] for referral (narrative)* Diagnostic Procedure Only (Routine) - Pending Review Specialty Diagnoses / Procedures Referred By Boris olguin Referred To Contact XR IMAGING Diagnoses Pain of finger of right hand Procedures XR DIGIT GENERAL 3V FRONTAL/LAT/OBL RIGHT RADEX FINGR MINIMUM 2 VIEWS Nusrat Leo MD [address] [place] [address] [place] [address] Referral ID Status Reason Start Date Expiration Date Visits Requested Visits Authorized [id number] Pending Review Auto-Generat ed Referral 05/26/2023 06/24/2024 1 1 [facility] for referral (narrative)* Diagnostic Procedure Only (Routine) - Closed Specialty Diagnoses / Procedures Referred By Boris olguin Referred To Contact XR IMAGING Diagnoses Pain of finger of right hand Procedures XR DIGIT GENERAL 3V FRONTAL/LAT/OBL RIGHT RADEX FINGR MINIMUM 2 VIEWS Nusrat Leo MD [address] [place] [address] [place] [address] Referral ID Status Reason Start Date Expiration Date V isits Requested Visits Authorized [id number] Closed Auto-Generate d Referral 05/26/2023 06/24/2024 1 1 [facility] for visit Narrative* Diagnostic Procedure Only (Routine) - Closed Specialty Diagnoses / Procedures Referred By Contac t Referred To Contact XR IMAGING Diagnoses Pain of finger of right hand Procedures XR DIGIT GENERAL 3V FRONTAL/LAT/OBL RIGHT RADEX FINGR MINIMUM 2 VIEWS Nusrat Leo MD [address] [place] [address] Xr Imaging [place] [address] Referral ID Status Reason Start Date Expiration Date V isits Requested Visits Authorized [id number] Closed Auto-Generate d Referral 05/26/2023 06/24/2024 1 1 [facility] Summary Purpose Family History No Family [...] routine healing, subsequent encounter Procedures CONSULT TO BISQUE CLEANER 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 THERAPY EVAL HIGH COMPLEX 60 MINS Nusrat Leo MD [address] [place] [address] [facility] [address] [place] [address] Referral ID Status Reason Start Date Expiration Date Visits Requested Visits Authorized [id number] Pending Review Auto-Generat ed Referral 05/31/2023 05/30/2024 1 1 Additional Source Comments INFORMATION SOURCE (unrecogn ized section and content) DATE CREATED AUTHOR AUTHOR'S ORGANIZ ATION 03/28/2018 [facility] DATE CREATED AUTHOR AUTHOR'S ORGANIZ ATION 10/12/2018 [facility] ([place]) DATE CREATED AUTHOR AUTHOR'S ORGANIZ ATION 11/04/2022 [facility] DATE CREATED AUTHOR AUTHOR'S ORGANIZ ATION 06/27/2023 [facility] Source Comments (unrecognize d section and content) In the event this informatio n is protected by the Federal Confidentiality of Alcohol and Drug Abuse Patient Records regulations: The Federal rules restrict any use of the information to criminally investigate or prosecute any alcohol or drug abuse patient.[facility] the event this information is protected by the Federal Confidentiality of Alcohol and Drug Abuse Patient Records regulations: The Federal rules restrict any use of the information to criminally investigate or prosecute any alcohol or drug abuse patient.[facility] the event this information is protected by the Federal Confidentiality of Alcohol and Drug Abuse Patient Records regulations: The Federal rules restrict any use of the information to criminally investigate or prosecute any alcohol or drug abuse patient.[facility] Care Teams (unrecognized sec tion and content) Conveyor Feeder Relationship Specialty Start Date End Date Kenneth Cohn DO [address] [place] [address] PCP - General Family Medicine 08/03/17 Casimiro Cardoza MD [address] [place] [address] Specialty Certified Medical Coder Pulmonary and Critical Care Medicine 05/09/16 [place] [address] [place], [place] [id number] Specialty Certified Medical Coder Endocrinology 12/17/16 Vijaya /service desk manager [employer] Registered Nurse 12/17/15 Darby Olosn [employer] Other 05/01/16 [facility] Registered Nurse 12/17/16 [employer] Transportation Provider 12/17/16 Conveyor Feeder Relationship Specialty Start Date End Date Kenneth Cohn DO [address] [place], [place] [address] PCP - General Family Medicine 08/03/17 Casimiro Cardoza MD [address] [place], [place] [address] Specialty Certified Medical Coder Pulmonary and Critical Care Medicine 05/09/16 [place] [address] [place] [address] Specialty Certified Medical Coder Endocrinology 12/17/16 Vijaya /service desk manager [employer] Registered Nurse 12/17/15 Darby Olson [employer] Other 05/01/16 [facility] Registered Nurse 12/17/16 [employer] [...] BE BASED ON THE PRIMARY CLINICAL RECORDS. [facility]. provides no warranty or guarantee of the accuracy or completeness of information in this document.
[2023-11-26] MEDS: Azithromycin 250 MG Tablet 500 MG PO (19:51)
[2023-11-26 19:55] VITALS: BP 158/106; PULSE 74; RESP 14; TEMP 36.8; O2SAT 95
== END 2023-11-26 19:56 | disposition home or self-care (01) ==
PROVIDERS: Emergency Provider Emergency Medicine; PCP Family Medicine; Visit Provider Emergency Medicine
DX: J44.1 Chronic obstructive pulmonary disease with (acute) exacerbation (principal); E11.43 Type 2 diabetes mellitus with diabetic autonomic (poly)neuropathy; E11.65 Type 2 diabetes mellitus with hyperglycemia; R51.9 Headache, unspecified; I10 Essential (primary) hypertension; M54.2 Cervicalgia; R42 Dizziness and giddiness; R19.7 Diarrhea, unspecified; Z99.81 Dependence on supplemental oxygen; Z79.85 Long-term (current) use of injectable non-insulin antidiabetic drugs; Z79.890 Hormone replacement therapy; Z79.899 Other long term (current) drug therapy
CPT/HCPCS: 70450; 71045; 80048; 85025; 96361; 96374; 96375; 96376; 99284; J7040; A4216

== ENCOUNTER → 2024-02-04 | Outpatient (CLI) | payer MEDICARE, MEDICAID, SELFPAY | END | disposition home or self-care (01) | PROVIDERS: PCP Family Medicine; Referring Provider Nurse Practitioner Acute Care; Visit Provider Nurse Practitioner Acute Care | DX: J45.40 Moderate persistent asthma, uncomplicated (principal) | CPT/HCPCS: 87070; 87077; 87205 ==

== ENCOUNTER → 2024-03-07 | Outpatient (CLI) | payer MEDICARE, MEDICAID, SELFPAY ==
[2024-03-07 16:29] LABS: Hematocrit 43.7 % (37-47); Hemoglobin 14.4 g/dL (12.0-15.0); Mean Corpuscular Hgb 28.1 pg (27.0-32.0); Mean Corpuscular Volume 85.4 fL (81-99); Mean Platelet Vol. 9.9 fl (6.2-12.0); Platelet Count 279 K/mm3 (150-450); RBC Distribution Width CV 13.4 % (11.6-14.6); RBC Distribution Width SD 41.7 fl (35.1-43.9); Red Blood Count 5.12 M/mm3 (4.2-5.4); White Blood Count 8.6 K/mm3 (4.4-11.0)
[2024-03-07 16:48] LABS: Albumin, Serum 3.4 g/dL (3.2-5.0); BUN 9 mg/dL (7-18); BUN/Creat Ratio 9.2 RATIO (10-20); Chloride 102 mmol/L (98-107); Creatinine, Serum 0.98 mg/dL (0.55-1.02); EST Glomerular Filtration Rate 67 mL/min (>60); Est Glom Filt Rate - Afr Amer 81 mL/min (>60); Glucose 232 mg/dL (74-106); Phosphorus 2.2 mg/dL (2.5-4.9); Potassium 3.8 mmol/L (3.5-5.1); Sodium Level 135 mmol/L (136-145)
[2024-03-07 17:05] LABS: PTHIN 75.2 pg/mL (18.4-80.1); Vitamin D,25 Hydroxy 20.1 ng/mL
[2024-03-07 19:12] LABS: Protein, Urine (Random) 216.1 mg/dL (<11.9); Protein:Creat Ratio 841 mg/g CRE (0-200)
== END | disposition home or self-care (01) ==
LOC: LAB 14:45
PROVIDERS: PCP Family Medicine; Referring Provider Nurse Practitioner Adult Health; Visit Provider Nurse Practitioner Adult Health
DX: E55.9 Vitamin D deficiency, unspecified (principal); N17.9 Acute kidney failure, unspecified
CPT/HCPCS: 36415; 80069; 82306; 82570; 83970; 84156; 85027

== ENCOUNTER → 2024-03-15 | Outpatient (CLI) | payer MEDICARE, MEDICAID, SELFPAY ==
[2024-03-15 12:38] LABS: Absolute Lymphocyte Count 2.18 X10^3/uL (0.83-4.51); Absolute Neutrophil Count 6.7 X10^3/uL (2.0-7.7); Basophil# 0.07 X10^3/uL; Basophil% 0.7 % (0-1); Eosinophil# 0.09 X10^3/uL; Eosinophils% 0.9 % (0-5); Hematocrit 45.5 % (37-47); Hemoglobin 15.3 g/dL (12.0-15.0); Lymphocyte # 2.18 X10^3/ul (0.83-4.51); Lymphocyte % 22.2 % (19-41); Mean Corp Hgb Conc 33.6 g/dL (32-36); Mean Corpuscular Hgb 28.5 pg (27.0-32.0); Mean Corpuscular Volume 84.7 fL (81-99); Mean Platelet Vol. 9.7 fl (6.2-12.0); Monocyte% 8.1 % (0-10); NRBC Flagged by Analyzer 0 % (0-5); Neutrophil # 6.67 X10^3/uL (2.7-7.7); Neutrophil % 67.8 % (47-70); Platelet Count 282 K/mm3 (150-450); RBC Distribution Width CV 13.2 % (11.6-14.6); RBC Distribution Width SD 40.7 fl (35.1-43.9); Red Blood Count 5.37 M/mm3 (4.2-5.4); White Blood Count 9.8 K/mm3 (4.4-11.0)
[2024-03-15 13:42] LABS: ALB/GLOB Ratio 0.9 RATIO (0.9-2.4); AST(SGOT) 47 U/L (15-37); Alanine Aminotransfer ALT/SGPT 76 U/L (13-56); Albumin, Serum 3.6 g/dL (3.2-5.0); Alkaline Phosphatase 115 U/L (45-117); Anion Gap 7 (5-15); BUN 9 mg/dL (7-18); BUN/Creat Ratio 11.6 RATIO (10-20); Calcium,Total 9.1 mg/dL (8.5-10.1); Chloride 97 mmol/L (98-107); Creatinine, Serum 0.78 mg/dL (0.55-1.02); EST Glomerular Filtration Rate 87 mL/min (>60); Est Glom Filt Rate - Afr Amer 105 mL/min (>60); Globulin 4.2 g/dL (2.2-4.2); Glucose 293 mg/dL (74-106); Potassium 3.7 mmol/L (3.5-5.1); Protein, Total 7.8 g/dL (6.4-8.2); Sodium Level 131 mmol/L (136-145)
== END | disposition home or self-care (01) ==
LOC: BFHLAB 11:03
PROVIDERS: PCP Family Medicine; Visit Provider Family Medicine
DX: J20.9 Acute bronchitis, unspecified (principal); R42 Dizziness and giddiness
CPT/HCPCS: 36415; 80053; 85025

== ENCOUNTER → 2024-06-01 | Outpatient (CLI) | payer MEDICARE, MEDICAID, SELFPAY ==
--- NOTE | 2024-06-01 12:08 | BI_ITS ---
MAMMOGRAPHY - BILATERAL SCREENING REASON FOR EXAM: Female, 43 years old. Routine annual screening examination. PERTINENT HISTORY: Aunt with breast cancer. TECHNIQUE: Digital bilateral breast devon (3D mammographic acquisition) in the CC and MLO projections. 2-D mediolateral oblique (MLO) and craniocaudad (CC) views of both breasts were obtained. CAD: Full Field Digital Mammography with Computer Added Detection was performed. COMPARISON: Comparison is made with prior study dated May 10, 2023 and May 14, 2023. FINDINGS: Breast Composition: There are scattered areas of fibroglandular density. There are no dominant masses or suspicious calcifications. No other significant abnormalities are identified. There has been no significant change since the prior study. BI/SCRN MAMM (CAD)W/DEVON BILAT IMPRESSION: Stable bilateral screening mammogram. Yearly follow-up mammogram recommended. (A) ASSESSMENT CATEGORY: BIRADS Category 1: Negative. A letter regarding these results will be sent to the patient by the facility within 30 days. Approximately 10% of breast cancers are not detected by mammography. A normal mammogram should not delay biopsy of a clinically suspicious abnormality. [id number] Electronically Signed: Mil Spain MD at 13:46 EDT ,
== END | disposition home or self-care (01) ==
LOC: OPBI 12:06
PROVIDERS: PCP Family Medicine; Referring Provider Family Medicine; Visit Provider Family Medicine
DX: Z12.31 Encounter for screening mammogram for malignant neoplasm of breast (principal)
CPT/HCPCS: 77063; 77067

== ENCOUNTER → 2024-07-25 | Outpatient (CLI) | payer MEDICARE, MEDICAID, SELFPAY | END | disposition home or self-care (01) | LOC: CVS 08:34 | PROVIDERS: PCP Family Medicine; Referring Provider Internal Medicine Cardiovascular Disease; Visit Provider Internal Medicine Cardiovascular Disease | DX: I10 Essential (primary) hypertension (principal) | CPT/HCPCS: 93788 ==

== ENCOUNTER → 2024-10-11 | Outpatient (CLI) | payer MEDICARE, MEDICAID, SELFPAY ==
[2024-10-11 11:47] LABS: Albumin, Serum 3.4 g/dL (3.2-5.0); BUN 8 mg/dL (7-18); BUN/Creat Ratio 8.8 RATIO (10-20); Calcium,Total 8.6 mg/dL (8.5-10.1); Chloride 103 mmol/L (98-107); EST Glomerular Filtration Rate 73 mL/min (>60); Est Glom Filt Rate - Afr Amer 88 mL/min (>60); Glucose 130 mg/dL (74-106); Phosphorus 1.6 mg/dL (2.5-4.9); Potassium 3.5 mmol/L (3.5-5.1); Sodium Level 139 mmol/L (136-145)
[2024-10-11 13:31] LABS: Protein, Urine (Random) 146.1 mg/dL (<11.9); Protein:Creat Ratio 533 mg/g CRE (0-200)
== END | disposition home or self-care (01) ==
PROVIDERS: PCP Family Medicine; Referring Provider Internal Medicine Nephrology; Visit Provider Internal Medicine Nephrology
DX: N17.9 Acute kidney failure, unspecified (principal)
CPT/HCPCS: 36415; 80069; 82570; 84156

== ENCOUNTER → 2025-01-02 | Outpatient (CLI) | payer MEDICARE, MEDICAID, SELFPAY ==
[2025-01-02 08:21] LABS: AST(SGOT) 37 U/L (<=31); Alanine Aminotransfer ALT/SGPT 48 U/L (<=34); Albumin, Serum 4.3 g/dL (3.5-5.0); Alkaline Phosphatase 89 U/L (35-104); Bilirubin, Direct 0.23 mg/dL (0.00-0.30); Cholesterol 205 mg/dL (<=200); Globulin 3.9 g/dL (2.2-4.2); High Density Lipoprotein 40 mg/dL; Low Density Lipoprotein Calc. 136 mg/dL; Protein, Total 8.2 g/dL (5.9-8.4); Triglycerides 149 mg/dL; Very Low Density Lipoprotein 30 mg/dL (5-40); cholesterol:hdl ratio screen 5.18
== END | disposition home or self-care (01) ==
LOC: LAB 07:38
PROVIDERS: PCP Family Medicine; Referring Provider Family Medicine; Visit Provider Family Medicine
DX: E11.40 Type 2 diabetes mellitus with diabetic neuropathy, unspecified (principal); I10 Essential (primary) hypertension
CPT/HCPCS: 36415; 80061; 80076

== ENCOUNTER → 2025-01-17 | Outpatient (CLI) | payer MEDICARE, MEDICAID, SELFPAY | END | disposition home or self-care (01) | LOC: PSN 12:32 | PROVIDERS: PCP Family Medicine; Referring Provider Nurse Practitioner Acute Care; Visit Provider Nurse Practitioner Acute Care | DX: J98.4 Other disorders of lung (principal) | CPT/HCPCS: 94060; 94726; 94729 ==

== ENCOUNTER → 2025-01-19 | Outpatient (CLI) | payer MEDICARE, MEDICAID, SELFPAY ==
[2025-01-19 12:30] VITALS: PULSE 100; PULSE 113; PULSE 115; PULSE 118; PULSE 91; PULSE 92; PULSE 93; O2SAT 88; O2SAT 89; O2SAT 92; O2SAT 93; O2SAT 96
--- NOTE | 2025-01-19 12:42 | CPS ---
Pt arrived at walk on 2 lpm pulse dose oxygen. Pt was placed on room air. Walk was started on room air. Two minutes into walk pt was placed back on pulse dose oxygen at 1 lpm. Pt was able to finish walk on 1 lpm pulse dose. Post walk pt placed herself back up to 2 lpm pulse dose stating that she feels better and more comfortable on the 2 lpm.
--- NOTE | 2025-01-26 12:21 | PCM.PSN.6M ---
PSN 6 Minute Walk Test 6 Minute Walk Test 6 Minute Walk Test: 6 Minute Walk Test PSN:6-Minute Walk Test Start: 01/19/25 12:36 Freq: Status: Discharge Protocol: RESP.6MINW Document 01/19/25 12:30 AEH (Rec: 01/19/25 12:46 AEH [id number]) 6 Minute Walk Test Date Performed 01/19/25 Time Performed 12:30 Height 5 ft 8 in Weight: 255 lb Weight in Pounds 255.[address]: Arlene Assistive device None used: Pre-test Oxygen Delivery Room Air Method Pulse Ox (%) 96 Pulse Rate (60-100 91 beats/min) Dyspnea Kelly Scale ( 0.5 0-10) Exertion Kelly Scale 6 (6-20) 1st minute Oxygen Delivery Room Air Method Pulse Rate (60-100 92 beats/min) Dyspnea Kelly Scale ( 110 0-10) 2nd minute Oxygen Delivery Room Air Method Pulse Ox (%) 88 Pulse Rate (60-100 115 H beats/min) 3rd minute Oxygen Flow Rate (L/ 1 min) (L/min) Oxygen Delivery Nasal Cannula Method Pulse Rate (60-100 93 beats/min) Dyspnea Kelly Scale ( 112 0-10) 4th minute Oxygen Flow Rate (L/ 1 min) (L/min) Oxygen Delivery Nasal Cannula Method Pulse Ox (%) 92 Pulse Rate (60-100 113 H beats/min) Reported Symptoms Increased Work of Breathing 5th minute Oxygen Flow Rate (L/ 1 min) (L/min) Oxygen Delivery Nasal Cannula Method Pulse Ox (%) 89 Pulse Rate (60-100 115 H beats/min) Reported Symptoms Increased Work of Breathing 6th minute Oxygen Flow Rate (L/ 1 min) (L/min) Oxygen Delivery Room Air Method Pulse Ox (%) 93 Pulse Rate (60-100 118 H beats/min) Dyspnea Kelly Scale ( 3 0-10) Exertion Kelly Scale 13 (6-20) Reported Symptoms Increased Work of Breathing Post-test Oxygen Flow Rate (L/ 2 min) (L/min) Oxygen Delivery Nasal Cannula Method Pulse Ox (%) 96 Pulse Rate (60-100 100 beats/min) Full Laps Walked 16 Partial Lap, Number 11 of Tiles Walked Total Distance 955 Walked (ft) 01/19/25 12:42 Cardiopulmonary Services by Mirella Gomez Pt arrived at walk on 2 lpm pulse dose oxygen. Pt was placed on room air. Walk was started on room air. Two minutes into walk pt was placed back on pulse dose oxygen at 1 lpm. Pt was able to finish walk on 1 lpm pulse dose. Post walk pt placed herself back up to 2 lpm pulse dose stating that she feels better and more comfortable on the 2 lpm. Initialized on 01/19/25 12:42 - END OF NOTE Interpretation Interpretation: The patient ambulated 955 feet over the course of 6 minutes beginning on room air without assistive devices. Pretesting oxygen saturation was noted to be 96% on room air. With ambulation, the shayne oxygen saturation was 88%. 1 L/min of pulsed dose supplemental oxygen was applied and the patient was able to complete the remainder of the test while maintaining appropriate saturations. Recommendations Recommendations: 1 L/min of pulse dose supplemental oxygen is required with exertion.
== END | disposition home or self-care (01) ==
LOC: PSN 12:09
PROVIDERS: PCP Family Medicine; Referring Provider Nurse Practitioner Acute Care; Visit Provider Nurse Practitioner Acute Care
DX: J98.4 Other disorders of lung (principal)
CPT/HCPCS: 94618

== ENCOUNTER → 2025-02-06 | Outpatient (CLI) | payer MEDICARE, MEDICAID, SELFPAY ==
[2025-02-09 06:07] LABS: Chlamydia By Nucleic Acid AMP Negative (Negative); Gonococcus By Nucleic Acid AMP Negative (Negative)
== END | disposition home or self-care (01) ==
LOC: LABSPEC 15:00
PROVIDERS: PCP Family Medicine; Referring Provider Nurse Practitioner Women's Health; Visit Provider Nurse Practitioner Women's Health
DX: Z12.4 Encounter for screening for malignant neoplasm of cervix (principal); Z11.3 Encounter for screening for infections with a predominantly sexual mode of transmission
CPT/HCPCS: 87491; 87591; 87624; 88175; G0145

== ENCOUNTER 2025-02-07 15:41 | Emergency (ER) | payer MEDICARE, MEDICAID, SELFPAY ==
[2025-02-07 15:43] VITALS: BP 199/93; PULSE 110; RESP 20; TEMP 36.8; O2SAT 96; O2SAT 99; BMI 42.6
--- NOTE | 2025-02-07 16:00 | EKG12_ITS ---
Test Reason : Blood Pressure : */* mmHG Vent. Rate : 102 BPM Atrial Rate : 102 BPM P-R Int : 178 ms QRS Dur : 76 ms QT Int : 356 ms P-R-T Axes : 64 57 53 degrees QTcB Int : 463 ms Sinus tachycardia Biatrial enlargement Abnormal ECG Confirmed by Daniel Obrien ([id number]), book or script editor ALYSIA HEBERT ([id number]) on 02/09/2025 12:13:17 PM Referred By: Lisa Bailey Confirmed By: Daniel Obrien
--- NOTE | 2025-02-07 16:02 | EDS_ITS ---
HPI History of Present Illness Chief Complaint: Allergic Reaction Detail of Chief Complaint: Allergic reaction Informant: patient Narrative Narrative: Patient presents to the emergency department from home with concern for an allergic reaction. Patient states that she was sitting when she had sudden onset of feeling very flushed in her upper body got very red. She felt short of breath and lightheaded. An hour prior she had taken Flagyl for the first time for a bacterial vaginal infection. Patient then checked her pulse ox and it was low. She normally does wear home O2 but at times will use it as needed at home. She denies chest pain. She denies recent travel or surgery. She has history of COPD. She has history of chronic respiratory failure. She states that she only has 1 good working lung and that is the right side. She denies recent illness. [facility] Medical History Depression Anxiety Diabetes Bladder disease Low iron Fatty liver Easy bruising Neuropathy Injury of back Migraine headache Seizures Dietary restriction Bowel obstruction Chronic constipation Gastric reflux Central sleep apnea treated with adaptive servo-ventilation (ASV) device History of Holter monitoring History of echocardiogram History of stress test Failure to thrive Hypertension Cardiology follow-up encounter On home oxygen therapy Collapsed lung History of hiatal hernia Pneumonia HLD (hyperlipidemia) probable cardiogenic shock Class 2 severe obesity due to excess calories with serious comorbidity and body mass index (BMI) of 38.0 to 38.9 in adult COPD (chronic obstructive pulmonary disease) Chronic respiratory failure Bradycardia Lactic acidosis Diaphragmatic hernia congenital Chronic hypoxemic respiratory failure Diabetic autonomic neuropathy associated with type 2 diabetes mellitus Migraine without aura or status migrainosus Paroxysmal supraventricular tachycardia Restrictive lung disease secondary to obesity 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 Congenital diaphragmatic hernia BMI 40.0-44.9, adult Obstructive sleep apnea Morbid obesity Type 2 diabetes mellitus Home Medications ?Medication ?Instructions ?Recorded ?Last Taken ?Type gabapentin 100 mg capsule 100 mg PO TID Diabetes 09/2410/29/20 History pantoprazole 40 mg tablet,delayed 40 mg PO DAILY GERD/ reflux 11/07/18 02/02/23 05:00 History release PEP device #1 ea 10/08/22 Unknown Rx blood pressure monitor (Blood #1 ea 10/26/22 Unknown R x Pressure Kit) hydralazine 50 mg tablet See Rx Instructions .Route 0 04/27/24 Unknown Rx .COMPLEX #240 tabs clonidine 0.2 mg/24 hr weekly 1 patch topical QWEEK Unknown History transdermal patch potassium chloride 10 mEq 10 meq PO BID 06/13/24 Unkno wn History tablet,extended release spironolactone 50 mg tablet 50 mg PO QDAY 06/13/24 Unk nown History tirzepatide 5 mg/0.5 mL mg subcut 06/13/24 Unknown H istory subcutaneous pen injector (Gregorio) dicyclomine 10 mg capsule 10 mg PO .qid IBS 07/18/24 U nknown History furosemide 40 mg tablet 40 mg PO QDAY 07/18/24 Unkno wn History irbesartan 150 mg tablet 300 mg PO QDAY 07/18/24 Unkn own History magnesium oxide 400 mg PO QDAY 07/18/24 Unkn own History psyllium husk 0.52 gram capsule 0.52 g PO QDAY 4 Unknown History (Fiber-Caps (psyllium husk)) topiramate 100 mg capsule,extended 150 mg PO QDAY 07/04 02/24 Unknown History release 24 hr (Trokendi XR) albuterol sulfate 90 mcg/actuation 2 puff inhalation Q 6H PRN SOB #8.5 12/13/24 Unknown Rx aerosol inhaler grams fluticasone furoate 200 1 inh inhalation DAILY #60 e a 12/13/24 Unknown Rx mcg-vilanterol 25 mcg/dose inhalation powder (Breo Ellipta) ipratropium 0.5 mg-albuterol 3 mg 3 ml inhalation .QID PRN SOB #180 12/13/24 Unknown Rx (2.5 mg base)/3 mL nebulization mL soln montelukast 10 mg tablet 10 mg PO QDAY #90 tabs 12/13 Unknown Rx amlodipine 10 mg tablet 10 mg PO BID #180 tabs 01/03 Unknown Rx atorvastatin 40 mg tablet 80 mg PO QHS 01/19/25 Unknow n History handicap Placcard #1 ea 01/19/25 Unknown Rx labetalol 400 mg tablet 400 mg PO BID #60 tabs 01/19 Unknown Rx metronidazole 500 mg tablet 500 mg PO BID 7 days #14 t abs 02/06/25 Unknown Rx boric acid 600 mg vaginal 600 mg vaginal .QD 21 days # 21 ea 02/07/25 Unknown Rx suppository (Azo Boric Acid) epinephrine 0.3 mg/0.3 mL 0.3 mg (0.3 mL) IM Q10M PRN PRN 02/07/25 Unknown Rx injection, auto-injector (EpiPen) anaphylaxis #2 ea Allergy/AdvReac Type Severity Reaction Status Date / Time amoxicillin Allergy Severe Anaphylaxis Verified 02/07/25 15:43 metronidazole Allergy Severe SOB Verified 02/07/25 15:43 nabumetone Allergy Unknown Unknown Verified 02/07/25 15:43 hydrocodone bitartrate (From Allergy Itching Verified 02/07/25 15:43 [place]) Penicillins Allergy Swelling Verified 02/07/25 15:43 carvedilol AdvReac Severe shortness Verified 02/07/25 15:43 of breath, chest pain doxycycline AdvReac Itching Verified 02/07/25 15:43 Family History Mother Diabetes Kidney disease Sister Diabetes Liver disease Kidney disease, Onset Age: 41 on dialysis Sister Diabetes Father Diabetes Hypertension Gangrene Surgical History Hx of colonoscopy Hx of ventral hernia repair S/P laparotomy History of removal of ovarian cyst History of section H/O tubal ligation History of open heart surgery Social History (Updated 02/06/25 @ 11:27 by Felicia Gonzalez NP, CALL OR CONTACT [facility]) Smoking Status: Never smoker alcohol intake: never substance use type: does not use caffeine: Yes Type: carbonated beverages Number of servings: 1 and coffee Number of servings: 1 what type of physical activity do you participate in: walking frequency: daily duration: 15-30 minutes/day seatbelt use: always do you feel safe at home: Yes additional social history: but the don't live together. ROS ROS ED Review of Systems ROS Unobtainable: other Constitutional Constitutional ED: Reports lethargy; Denies chills, fever(s), sweats or weight loss Eyes Eyes: Denies blurry vision, change in vision or diplopia ENT ENT ED: Denies rhinorrhea or sore throat Cardiovascular Cardiovascular: Reports racing heartbeat; Denies chest pain or orthopnea Respiratory/Chest Respiratory/Chest: Reports dyspnea; Denies cough, dyspnea on exertion, orthopnea or sputum Gastrointestinal Gastrointestinal: Denies abdominal pain, diarrhea, nausea or vomiting Genitourinary Genitourinary ED: Denies dysuria, hematuria or urinary frequency Musculoskeletal Musculoskeletal: Denies arthralgias, back pain, myalgias or neck pain Integumentary Denies abscess, Abrasions or rash Neurologic Neurologic: Denies headache(s) or weakness Psychiatric Psychiatric: Denies anxiety, depression or suicidal thoughts Endocrine Endocrinology: Denies polydipsia, polyphagia or polyuria Hematologic/Lymphatic Hematologic/Lymphatic: Denies easy bleeding, easy bruising or lymphadenopathy Allergic/Immunologic Allergic/Immunologic ED: Reports other Details: Rash ; Denies mouth swelling, tongue swelling or urticaria EXAM Physical Exam Const Vital Signs: 02/07/25 15:43 02/07/25 16:34 02/07/25 16:43 Temperature 98.2 F Temperature Source Oral Pulse Rate 110 H 99 106 H Respiratory Rate 20 H 16 15 Respiratory Pattern Normal Blood Pressure 199/93 H 153/96 H Blood Pressure Mean 128 115 Pulse Ox 99 98 Oxygen Delivery Method Nasal Cannula Room Air Oxygen Flow Rate (L/min) 2 02/07/25 17:00 02/07/25 18:00 02/07/25 18:45 Temperature 98.0 F Temperature Source Pulse Rate 92 80 82 Respiratory Rate 18 16 18 Respiratory Pattern Blood Pressure 153/96 H 129/83 H 129/83 H Blood Pressure Mean 115 98 98 Pulse Ox 97 97 100 Oxygen Delivery Method Nasal Cannula Room Air Oxygen Flow Rate (L/min) Positive well nourished and well developed General Appearance ED: well developed and NAD HEENT Reports TM's clear and moist mucous membranes HEENT Narrative: Facial flushing normocephalic and atraumatic; Negative for trauma or tenderness Tympanic Membrane ED: Yes TM's clear Eyes PERRL and EOMs intact bilaterally General Eye ED: Negative for pale conjunctiva or scleral icterus Neck no lymphadenopathy, supple and no JVD General: Negative for tenderness Chest Wall inspection of chest normal and palpation of chest normal Chest: Negative for tenderness Resp normal respiratory effort and clear to auscultation bilaterally Resp Narrative: Diminished breath sounds left lung. Patient has some faint expiratory wheezes noted in the right lung. No accessory muscle use or retractions. She has some mild conversational dyspnea. Effort and Inspection: Negative for respiratory distress or pain with movement Auscultation: Negative for rhonchi, wheezes or diminished lung sounds Cardio regular rate, regular rhythm, S1 normal heart sound, S2 normal heart sound and no murmurs Peripheral Pulses: pulses 2+ throughout GI normal to inspection, nondistended, normoactive bowel sounds, soft to palpation, non-tender, non-distended and no masses Back/Spine no CVA tenderness and no thoracic nor lumbar tenderness Extremity normal to inspection General Extremety ED: Negative for edema General Extremity: Negative for edema Neuro oriented x3, CN's II-XII intact bilaterally, no sensory deficits noted and gait normal Sensorium / Orientation: awake, alert, oriented to person, oriented to place and oriented to time Motor Exam: strength 5/5 throughout and strength abnormal Psych mental status grossly normal Skin no rashes or lesions noted and no wounds Skin Narrative: Patient with an erythematous rash that is patchy on the chest and bilateral upper arms as well as her neck and face. There is no angioedema of the tongue or oropharynx. No angioedema of the lips noted. MDM MDM MDM Narrative Medical decision making narrative: Patient presents with concern for possible allergic reaction to Flagyl. She is apparently being treated for trichomonas. EMS had given EpiPen and Benadryl. I did give her Solu-Medrol 125 mg IV as well as Pepcid and Benadryl. Her rash resolved. Symptoms essentially resolved. I did do a chest x-ray that was unremarkable. Patient also had an EKG on arrival that showed a sinus tachycardia with ventricular rate of 102 bpm with no acute ST segment changes. Patient was observed for approximately 3 hours and is doing well. Discussed case with OPHTHALMIC MEDICAL ASSISTANT on-call Dr. Asim Elias as we wanted to discontinue the Flagyl which she agrees. Also discussed with pharmacist possible alternative and we are limited in alternatives due to patient's allergies however there is an option for boric acid suppositories daily for 21 days and I will write her prescription for this. Patient will be discharged to home with a prescription for an EpiPen as well. She is advised to avoid Flagyl in the future. Lab Data Attestation: I reviewed the patient's lab results. Radiography Diagnostic Testing: Clinical Impression(s) from Imaging Studies Chest X-Ray 02/07/25 17:03 IMPRESSION: No Acute Findings. Reading Location: [facility] 1 view chest x-ray obtained interpreted by myself as no evidence of infiltrate or pneumothorax or acute disease process. Radiology in agreement. EKG Initial EKG: Attestation: I personally reviewed and interpreted this EKG as follows: Comments: Sinus tachycardia with ventricular rate of 102 bpm with biatrial enlargement Discharge Plan Triage Chief Complaint: Allergic Reaction ED Provider: Lisa Bailey Dx/Rx/DC Orders Clinical Impression: Allergic drug reaction Instructions: ED Anaphylaxis Prescriptions: New epinephrine [EpiPen] 0.3 mg/0.3 mL auto-injector 0.3 mg IM Q10M PRN PRN (Reason: anaphylaxis) Qty: 2 0RF Rx Instructions: for 2 doses boric acid [Azo Boric Acid] 600 mg suppository 600 mg vaginal .QD 21 Days Qty: 21 0RF No Action gabapentin 100 mg capsule 100 mg PO TID (DME) blood pressure monitor [Blood Pressure Kit] Kit See Rx Instructions .Route Qty: 1 0RF Rx Instructions: As directed (DME) PEP device See Rx Instructions .ROUTE .MEDSUPPLY Qty: 1 0RF Rx Instructions: with training irbesartan 150 mg tablet 300 mg PO QDAY psyllium husk [Fiber-Caps (psyllium husk)] 0.52 gram capsule 0.52 g PO QDAY furosemide 40 mg tablet 40 mg PO QDAY magnesium oxide 400 mg magnesium capsule 400 mg PO QDAY clonidine 0.2 mg/24 hr patch weekly 1 patch topical QWEEK potassium chloride 10 mEq tablet extended release 10 meq PO BID spironolactone 50 mg tablet 50 mg PO QDAY Mounjaro 5 mg/0.5 mL pen injector subcut topiramate [Trokendi XR] 100 mg capsule,extended release 24hr 150 mg PO QDAY albuterol sulfate 90 mcg/actuation HFA aerosol inhaler 2 puff inhalation Q6H PRN (Reason: SOB) Qty: 8.5 11RF Breo Ellipta 200-25 mcg/dose blister with device 1 inh inhalation DAILY Qty: 60 11RF ipratropium-albuterol 0.5 mg-3 mg(2.5 mg base)/3 mL solution for nebulization 3 ml inhalation .QID PRN (Reason: SOB) Qty: 180 6RF montelukast 10 mg tablet 10 mg PO QDAY Qty: 90 3RF atorvastatin 40 mg tablet 80 mg PO QHS labetalol 400 mg tablet 400 mg PO BID Qty: 60 11RF (DME) handicap Placcard See Rx Instructions .Route .MEDSUPPLY Qty: 1 0RF Rx Instructions: Dx: COPD Exp: 01/2030 dicyclomine 10 mg capsule 10 mg PO .qid pantoprazole 40 MG tablet 40 mg PO DAILY hydralazine 50 mg tablet See Rx Instructions .ROUTE .COMPLEX Qty: 240 3RF Dose Instruction: TAKE 1 TABLET BY MOUTH THREE TIMES A DAY Rx Instructions: TAKE 1 TABLET BY MOUTH THREE TIMES A DAY amlodipine 10 mg tablet 10 mg PO BID Qty: 180 3RF metronidazole 500 mg tablet 500 mg PO BID 7 Days Qty: 14 0RF Primary Care Provider: Asim Cohn Referrals: Asim Cohn, [Primary Care Provider] - 3-5 Days Activity Restrictions/Additional Instructions: Avoid metronidazole in the future as you had an allergic reaction to it Print Language: Comoran Disposition Disposition: Home, Self Care Discharge Date/Time: 02/07/25 18:46
[2025-02-07 16:34] VITALS: PULSE 99; RESP 16
[2025-02-07] MEDS: Ipratropium/Albuterol Sulfate 3 ML AMPUL.NEB INHALATION (16:34)
[2025-02-07] MEDS: DiphenhydrAMINE 50 MG/ML Syringe 25 MG IV (16:37)
[2025-02-07] MEDS: Famotidine 200 MG/20 ML MDV 20 MG in 0.9% Normal Saline (Pres. free 8 ML 300 MG IV (16:37)
[2025-02-07] MEDS: MethylPREDNISolone 125 MG/2 ML Vial IV (16:37)
[2025-02-07 16:43] VITALS: BP 153/96; PULSE 106; RESP 15; O2SAT 98
[2025-02-07 17:00] VITALS: BP 153/96; PULSE 92; RESP 18; O2SAT 97
--- NOTE | 2025-02-07 17:03 | RAD_ITS ---
PROCEDURE: CHEST 1 VIEW (PORTABLE) 02/07/2025 REASON FOR EXAM: DYSPNEA TECHNIQUE: Frontal view of the chest. COMPARISON: 11/26/2019 FINDINGS: Hardware: None Heart: Stable cardiomediastinal silhouette. Lungs: Bibasilar atelectasis. No pneumothorax. No pleural effusion. No focal consolidation. Bones: The bones are unremarkable. Other: RAD/Chest 1 View (Portable) IMPRESSION: No Acute Findings. Reading Location: [facility]
[2025-02-07 18:00] VITALS: BP 129/83; PULSE 80; RESP 16; O2SAT 97
[2025-02-07 18:45] VITALS: BP 129/83; PULSE 82; RESP 18; TEMP 36.7; O2SAT 100
== END 2025-02-07 18:46 | disposition home or self-care (01) ==
PROVIDERS: Emergency Provider Emergency Medicine; PCP Family Medicine; Referring Provider Emergency Medicine; Visit Provider Emergency Medicine
DX: L27.0 Generalized skin eruption due to drugs and medicaments taken internally (principal); J44.9 Chronic obstructive pulmonary disease, unspecified; E11.40 Type 2 diabetes mellitus with diabetic neuropathy, unspecified; R06.2 Wheezing; T37.3X5A Adverse effect of other antiprotozoal drugs, initial encounter; E78.5 Hyperlipidemia, unspecified; N76.0 Acute vaginitis; I10 Essential (primary) hypertension; A59.9 Trichomoniasis, unspecified; Z79.899 Other long term (current) drug therapy
CPT/HCPCS: 71045; 93005; 94640; 96374; 96375; 99284; A4216

== ENCOUNTER 2025-03-26 17:46 | Emergency (ER) | payer MEDICARE, MEDICAID, SELFPAY ==
[2025-03-26] VITALS (7 sets, daily range): BP systolic 108–124; BP diastolic 59–79; PULSE 80–89; RESP 16–31; TEMP 37; O2SAT 93–97; BMI 39.6
--- NOTE | 2025-03-26 18:09 | EKG12_ITS ---
Test Reason : syncope Blood Pressure : */* mmHG Vent. Rate : 83 BPM Atrial Rate : 83 BPM P-R Int : 182 ms QRS Dur : 78 ms QT Int : 422 ms P-R-T Axes : 60 75 61 degrees QTcB Int : 495 ms Normal sinus rhythm Possible Left atrial enlargement Low voltage QRS Prolonged QT Abnormal ECG Confirmed by YESENIA DIAZ, ROMEL ([id number]), metropolitan editor ALYSIA HEBERT ([id number]) on 03/27/2025 11:16:26 AM Referred By: Confirmed By: ROMEL PATTERSON MD
--- NOTE | 2025-03-26 18:27 | RAD_ITS ---
PROCEDURE: CHEST 1 VIEW (PORTABLE) 03/26/2025 REASON FOR EXAM: HYPERTENSION, COPD TECHNIQUE: Frontal view of the chest. COMPARISON: Chest radiographs on 02/07/2025 and 11/26/2023 FINDINGS: Hardware: None Heart: Cardiac and mediastinal contours are stable. Lungs: No focal consolidation or pleural effusion. Unchanged elevation of the left hemidiaphragm. Bones: The bones are unremarkable. RAD/Chest 1 View (Portable) IMPRESSION: No acute cardiopulmonary abnormality. Reading Location: [id number]
--- NOTE | 2025-03-26 18:28 | CT_ITS ---
PROCEDURE: BRAIN/HEAD WITHOUT CONTRAST 03/26/2025 REASON FOR EXAM: SYNCOPE TECHNIQUE: BRAIN/HEAD WITHOUT CONTRAST Coronal and Sagittal reconstruction series were provided. One or more dose reduction techniques were used (e.g., Automated exposure control, adjustment of the mA and/or kV according to patient size, use of iterative reconstruction technique. RADIATION DOSE SUMMARY: CTDlvol: 45.0 mGy DLP: 813 mGycm COMPARISON: CT head 11/26/2023 FINDINGS: Brain: No acute intracranial hemorrhage, mass effect, or midline shift. Marcus- white matter differentiation is maintained. CSF Spaces: Normal Sinuses/Mastoids: Clear at visualized levels Bones: Unremarkable. CT/Brain/Head without Contrast IMPRESSION: No acute intracranial abnormality. Reading Location: [id number]
[2025-03-26 18:51] LABS: Absolute Lymphocyte Count 2.16 X10^3/uL (0.83-4.51); Absolute Neutrophil Count 8.5 X10^3/uL (2.0-7.7); Basophil# 0.04 X10^3/uL; Basophil% 0.3 % (0-1); Eosinophil# 0.11 X10^3/uL; Eosinophils% 0.9 % (0-5); Hematocrit 40.7 % (37-47); Hemoglobin 13.8 g/dL (12.0-15.0); Lymphocyte # 2.16 X10^3/ul (0.83-4.51); Lymphocyte % 18.6 % (19-41); Mean Corp Hgb Conc 33.9 g/dL (32-36); Mean Corpuscular Hgb 28.2 pg (27.0-32.0); Mean Corpuscular Volume 83.2 fL (81-99); Mean Platelet Vol. 9.5 fl (6.2-12.0); Monocyte# 0.78 X10^3/uL; Monocyte% 6.7 % (0-10); NRBC Flagged by Analyzer 0 % (0-5); Neutrophil % 73.2 % (47-70); Platelet Count 260 K/mm3 (150-450); RBC Distribution Width CV 13.2 % (11.6-14.6); RBC Distribution Width SD 39.8 fl (35.1-43.9); Red Blood Count 4.89 M/mm3 (4.2-5.4); White Blood Count 11.6 K/mm3 (4.4-11.0)
[2025-03-26 19:17] LABS: Alcohol, Blood (Medical)-Serum < 10.1 mg/dL (<=10.0)
--- NOTE | 2025-03-26 19:21 | EX.ED.DYSGE1 ---
HPI History of Present Illness Chief Complaint: Syncope Narrative Narrative: 44-year-old female past medical history of multiple medical problems presents with near syncopal/syncopal episode today. She states she feels very lightheaded and is seeing stars. She is on multiple medications. Her states that her vitals keep dropping. She does take antihypertensive medications. She reportedly had a syncopal episode on of last week, approximately 4 days ago. Today, she was trying to wake up her son for his third shift job, she felt very lightheaded. She states she almost blacked out and ripped the towel bar off the wall. Is not necessarily worse with standing. [facility] Medical History Near syncope Depression Anxiety Diabetes Bladder disease Low iron Fatty liver Easy bruising Neuropathy Injury of back Migraine headache Seizures Dietary restriction Bowel obstruction Chronic constipation Gastric reflux Central sleep apnea treated with adaptive servo-ventilation (ASV) device History of Holter monitoring History of echocardiogram History of stress test Failure to thrive Hypertension Cardiology follow-up encounter On home oxygen therapy Collapsed lung History of hiatal hernia Pneumonia HLD (hyperlipidemia) probable cardiogenic shock Class 2 severe obesity due to excess calories with serious comorbidity and body mass index (BMI) of 38.0 to 38.9 in adult COPD (chronic obstructive pulmonary disease) Chronic respiratory failure Bradycardia Lactic acidosis Diaphragmatic hernia congenital Chronic hypoxemic respiratory failure Diabetic autonomic neuropathy associated with type 2 diabetes mellitus Migraine without aura or status migrainosus Paroxysmal supraventricular tachycardia Restrictive lung disease secondary to obesity 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 Congenital diaphragmatic hernia BMI 40.0-44.9, adult Obstructive sleep apnea Morbid obesity Type 2 diabetes mellitus Home Medications ?Medication ?Instructions ?Recorded ?Last Taken ?Type pantoprazole 40 mg tablet,delayed 40 mg PO DAILY GERD/reflux 11/07/18 02/02/23 05:00 History release PEP device #1 ea 10/08/22 Unknown Rx blood pressure monitor (Blood #1 ea 10/26/22 Unknown Rx Pressure Kit) clonidine 0.2 mg/24 hr weekly 1 patch topical QWEEK 06/13/24 Unknown History transdermal patch potassium chloride 10 mEq 10 meq PO BID 06/13/24 Unknown History tablet,extended release spironolactone 50 mg tablet 50 mg PO QDAY 06/13/24 Unknown History tirzepatide 5 mg/0.5 mL mg subcut 06/13/24 Unknown History subcutaneous pen injector (Mounjaro) dicyclomine 10 mg capsule 10 mg PO .qid IBS 07/18/24 Unknown History furosemide 40 mg tablet 40 mg PO QDAY 07/18/24 Unknown History irbesartan 150 mg tablet 300 mg PO QDAY 07/18/24 Unknown History magnesium oxide 400 mg PO QDAY 07/18/24 Unknown History psyllium husk 0.52 gram capsule 0.52 g PO QDAY 07/18/24 Unknown History (Fiber-Caps (psyllium husk)) topiramate 100 mg capsule,extended 150 mg PO QDAY 07/18/24 Unknown History release 24 hr (Trokendi XR) albuterol sulfate 90 mcg/actuation 2 puff inhalation Q6H PRN SOB #8.5 12/13/24 Unknown Rx aerosol inhaler grams fluticasone furoate 200 1 inh inhalation DAILY #60 ea 12/13/24 Unknown Rx mcg-vilanterol 25 mcg/dose inhalation powder (Breo Ellipta) ipratropium 0.5 mg-albuterol 3 mg 3 ml inhalation .QID PRN SOB #180 12/13/24 Unknown Rx (2.5 mg base)/3 mL nebulization mL soln montelukast 10 mg tablet 10 mg PO QDAY #90 tabs 12/13/24 Unknown Rx amlodipine 10 mg tablet 10 mg PO BID #180 tabs 01/03/25 Unknown Rx handicap Placcard #1 ea 01/19/25 Unknown Rx labetalol 400 mg tablet 400 mg PO BID #60 tabs 01/19/25 Unknown Rx boric acid 600 mg vaginal 600 mg vaginal .QD 21 days #21 ea 02/07/25 Unknown Rx suppository (Azo Boric Acid) epinephrine 0.3 mg/0.3 mL 0.3 mg (0.3 mL) IM Q10M PRN PRN 02/07/25 Unknown Rx injection, auto-injector (EpiPen) anaphylaxis #2 ea hydralazine 50 mg tablet See Rx Instructions .Route 02/28/25 Unknown Rx .COMPLEX #240 tabs fluoxetine 40 mg capsule 40 mg PO QDAY 03/08/25 Unknown History labetalol 200 mg tablet 400 mg PO 03/08/25 Unknown History nystatin 100,000 unit/gram topical applic topical 03/08/25 Unknown History cream tirzepatide 2.5 mg/0.5 mL 2.5 mg subcut QWEEK 03/08/25 Unknown History subcutaneous pen injector (Gregorio) topiramate 50 mg capsule,extended 50 mg PO QDAY 03/08/25 Unknown History release 24 hr (Trokendi XR) trazodone 50 mg tablet 50 mg PO QHS 03/08/25 Unknown History atorvastatin 80 mg tablet 80 mg PO DAILY 03/26/25 Unknown History gabapentin 100 mg capsule 100 mg PO TID 03/26/25 Unknown History sulfamethoxazole 800 1 tab PO Q12H 7 days #14 tabs 03/26/25 Unknown Rx mg-trimethoprim 160 mg tablet (Bactrim DS) Allergy/AdvReac Type Severity Reaction Status Date / Time amoxicillin Allergy Severe Anaphylaxis Verified 02/07/25 15:43 metronidazole Allergy Severe SOB Verified 02/07/25 15:43 nabumetone Allergy Unknown Unknown Verified 02/07/25 15:43 hydrocodone bitartrate (From Allergy Itching Verified 02/07/25 15:43 [place]) Penicillins Allergy Swelling Verified 02/07/25 15:43 carvedilol AdvReac Severe shortness Verified 02/07/25 15:43 of breath, chest pain doxycycline AdvReac Itching Verified 02/07/25 15:43 Family History Mother Diabetes Kidney disease Sister Diabetes Liver disease Kidney disease, Onset Age: 41 on dialysis Sister Diabetes Father Diabetes Hypertension Gangrene Surgical History Hx of colonoscopy Hx of ventral hernia repair S/P laparotomy History of removal of ovarian cyst History of section H/O tubal ligation History of open heart surgery Social History Smoking Status: Never smoker alcohol intake: never substance use type: does not use caffeine: Yes Type: carbonated beverages Number of servings: 1 and coffee Number of servings: 1 what type of physical activity do you participate in: walking frequency: daily duration: 15-30 minutes/day seatbelt use: always do you feel safe at home: Yes additional social history: but the don't live together. ROS ROS ED ROS Narrative Review of systems positive for syncope and near syncope. No chest pain or shortness of breath. No exacerbating or alleviating factors. No prodromal symptoms except for seeing stars. EXAM Physical Exam Narrative Exam Narrative: Afebrile. Vital signs noted. Nontoxic-appearing. Cardiovascular examination reveals regular rate and rhythm. Lungs are clear to auscultation bilaterally. Abdomen is soft, nontender, with normoactive bowel sounds. Moves all extremities. Opens eyes to command. PERRL, EOMI. Able to ambulate in ED. Const Vital Signs: 03/26/25 17:48 03/26/25 17:48 03/26/25 18:43 Temperature 98.6 F Temperature Source Oral Pulse Rate 87 Pulse Rate [Lying] 87 Pulse Rate [Sitting (for 1 minute prior to obtaining)] 89 Pulse Rate [Standing (for 1 minute prior to obtaining)] 89 Respiratory Rate 22 H Respiratory Effort Normal Non-Labored Respiratory Pattern Normal Blood Pressure 117/68 Blood Pressure [Lying] 112/68 Blood Pressure [Sitting (for 1 minute prior to obtaining)] 124/62 H Blood Pressure [Standing (for 1 minute prior to obtaining)] 111/63 Blood Pressure Mean 84 Blood Pressure Mean [Lying] 82 Blood Pressure Mean [Sitting (for 1 minute prior to obtaining)] 82 Blood Pressure Mean [Standing (for 1 minute prior to obtaining)] 79 Pulse Ox 95 Oxygen Delivery Method Room Air 03/26/25 18:47 03/26/25 19:00 03/26/25 20:00 Temperature Temperature Source Pulse Rate 86 84 80 Pulse Rate [Lying] Pulse Rate [Sitting (for 1 minute prior to obtaining)] Pulse Rate [Standing (for 1 minute prior to obtaining)] Respiratory Rate 31 H 23 H 27 H Respiratory Effort Respiratory Pattern Blood Pressure 111/63 112/79 108/59 L Blood Pressure [Lying] Blood Pressure [Sitting (for 1 minute prior to obtaining)] Blood Pressure [Standing (for 1 minute prior to obtaining)] Blood Pressure Mean 79 90 75 Blood Pressure Mean [Lying] Blood Pressure Mean [Sitting (for 1 minute prior to obtaining)] Blood Pressure Mean [Standing (for 1 minute prior to obtaining)] Pulse Ox 95 96 93 Oxygen Delivery Method Room Air Room Air Room Air MDM MDM MDM Narrative Medical decision making narrative: Differential diagnosis includes but not limited to dehydration versus orthostatic hypotension versus intravascular volume depletion versus vasovagal syncope/near syncope. EKG was obtained and interpreted by myself independently as normal sinus rhythm at 83 bpm without ectopy or acute ST changes. Slightly prolonged QTc of 495 which may be secondary to her multiple medications. I reviewed her initial laboratory work and she has slightly elevated white count of 11.6 which I think is nonspecific, hemoglobin normal at 13.8, no anemia. Platelet count normal at 260. Ethyl alcohol is negative. Review of her electrolyte panel shows normal sodium of 137 and potassium 4.5, glucose elevated 245 but normal anion gap of 14 so I doubt diabetic ketoacidosis or honk. High-sensitivity troponin is less than 6. Serum is negative. Urinalysis is consistent with UTI with 5 ketones and greater than 100 WBCs. This was sent for culture. She has multiple allergies to amoxicillin, penicillins, doxycycline, and nitrofurantoin. She was started on Bactrim DS and a prescription written to take twice a day for the next week. She states she has a follow-up appointment with her [facility]PLICATION P[employer]RATION TESTER tomorrow at 11 AM. I reviewed the radiology report of the CT of the brain and there is no acute process. Chest x-ray interpreted by myself independently shows no pneumonia or pneumothorax. I reviewed the radiology report which confirms my independent interpretation. She was seen ambulating back from the bathroom once again and states that her symptoms are improving. I feel she can be discharged safely home with follow-up. Return instructions to the emergency department were reviewed. Disposition is discharged home in stable condition. History & Record Review Discussion w/independent historian: Patient and Family Lab Data Attestation: I reviewed the patient's lab results. Labs: Laboratory Results - last 24 hr 03/26/25 03/26/25 18:38 19:39 WBC 11.6 H RBC 4.89 Hgb 13.8 Hct 40.7 MCV 83.2 MCH 28.2 MCHC 33.9 RDW Std Deviation 39.8 RDW Coeff of Lillian 13.2 Plt Count 260 MPV 9.5 Immature Gran % (Auto) 0.300 Neut % (Auto) 73.2 H Lymph % (Auto) 18.6 L S[place] % (Auto) 6.7 Eos % (Auto) 0.9 Baso % (Auto) 0.3 Absolute Neuts (auto) 8.5 H Absolute Lymphs (auto) 2.16 Nucleated RBC % 0 Sodium 137 Potassium 4.5 Chloride 101 Carbon Dioxide 22.2 Anion Gap 14 BUN 16 Creatinine 1.09 Estim Creat Clear Calc 90.92 Est GFR (MDRD) Non-Af 65 BUN/Creatinine Ratio 14.2 Glucose 245 H Calcium 8.9 Total Bilirubin 0.64 AST 44 H ALT 52 H Alkaline Phosphatase 84 Troponin T High Sens < 6 Total Protein 7.0 Albumin 3.8 Globulin 3.2 Albumin/Globulin Ratio 1.2 Serum , Qual NEGATIVE Urine Color Yellow Urine Clarity Clear Urine pH 5.0 Ur Specific [place] 1.025 Urine Protein 100 H Urine Glucose (UA) Normal Urine Ketones 5 H Urine Occult Blood Negative Urine Nitrite Negative Urine Bilirubin Negative Urine Urobilinogen Normal Ur Leukocyte Esterase 500 H Urine RBC 0 SEEN Urine WBC >100 SEEN Ur Squamous Epith Cells 5-10 SEEN Calcium Oxalate Crystal 1+ Urine Bacteria 2+ Hyaline Casts 5-10 SEEN Urine Mucus 1+ Urine Opiates Screen NEGATIVE U Buprenorphine Qual NEGATIVE Ur Oxycodone Screen NEGATIVE Urine Methadone Screen NEGATIVE Urine Fentanyl Screen NEGATIVE Ur Barbiturates Screen NEGATIVE Ur Phencyclidine Scrn NEGATIVE Ur Amphetamines Screen NEGATIVE U Benzodiazepines Scrn NEGATIVE Urine Cocaine Screen NEGATIVE U Cannabinoids Screen NEGATIVE Ethyl Alcohol < 10.1 Radiography Diagnostic Testing: Clinical Impression(s) from Imaging Studies Chest X-Ray 03/26/25 18:27 IMPRESSION: No acute cardiopulmonary abnormality. Reading Location: [facility] Brain CT 03/26/25 18:28 IMPRESSION: No acute intracranial abnormality. Reading Location: [facility] Discharge Plan Triage Chief Complaint: Syncope ED Provider: Miguel Angel Parikh Dx/Rx/DC Orders Clinical Impression: Urinary tract infection, Near syncope, Type 2 diabetes mellitus Instructions: ED Fainting, Uncertain Cause, ED Near-Fainting, Uncertain Cause, ED Cystitis Female Adult Prescriptions: New sulfamethoxazole-trimethoprim [Bactrim DS] 800-160 mg tablet 1 tab PO Q12H 7 Days Qty: 14 0RF No Action (DME) blood pressure monitor [Blood Pressure Kit] Kit See Rx Instructions .Route Qty: 1 0RF Rx Instructions: As directed (DME) PEP device See Rx Instructions .ROUTE .MEDSUPPLY Qty: 1 0RF Rx Instructions: with training irbesartan 150 mg tablet 300 mg PO QDAY psyllium husk [Fiber-Caps (psyllium husk)] 0.52 gram capsule 0.52 g PO QDAY furosemide 40 mg tablet 40 mg PO QDAY magnesium oxide 400 mg magnesium capsule 400 mg PO QDAY clonidine 0.2 mg/24 hr patch weekly 1 patch topical QWEEK potassium chloride 10 mEq tablet extended release 10 meq PO BID spironolactone 50 mg tablet 50 mg PO QDAY Mounjaro 5 mg/0.5 mL pen injector subcut topiramate [Trokendi XR] 100 mg capsule,extended release 24hr 150 mg PO QDAY albuterol sulfate 90 mcg/actuation HFA aerosol inhaler 2 puff inhalation Q6H PRN (Reason: SOB) Qty: 8.5 11RF Breo Ellipta 200-25 mcg/dose blister with device 1 inh inhalation DAILY Qty: 60 11RF ipratropium-albuterol 0.5 mg-3 mg(2.5 mg base)/3 mL solution for nebulization 3 ml inhalation .QID PRN (Reason: SOB) Qty: 180 6RF montelukast 10 mg tablet 10 mg PO QDAY Qty: 90 3RF labetalol 400 mg tablet 400 mg PO BID Qty: 60 11RF (DME) handicap Placcard See Rx Instructions .Route .MEDSUPPLY Qty: 1 0RF Rx Instructions: Dx: COPD Exp: 01/2030 fluoxetine 40 mg capsule 40 mg PO QDAY labetalol 200 mg tablet 400 mg PO trazodone 50 mg tablet 50 mg PO QHS nystatin 100,000 unit/gram cream topical topiramate [Trokendi XR] 50 mg capsule,extended release 24hr 50 mg PO QDAY Mounjaro 2.5 mg/0.5 mL pen injector 2.5 mg subcut QWEEK Rx Instructions: for 4 weeks dicyclomine 10 mg capsule 10 mg PO .qid pantoprazole 40 MG tablet 40 mg PO DAILY epinephrine [EpiPen] 0.3 mg/0.3 mL auto-injector 0.3 mg IM Q10M PRN PRN (Reason: anaphylaxis) Qty: 2 0RF Rx Instructions: for 2 doses boric acid [Azo Boric Acid] 600 mg suppository 600 mg vaginal .QD 21 Days Qty: 21 0RF atorvastatin 80 mg tablet 80 mg PO DAILY gabapentin 100 mg capsule 100 mg PO TID amlodipine 10 mg tablet 10 mg PO BID Qty: 180 3RF hydralazine 50 mg tablet See Rx Instructions .ROUTE .COMPLEX Qty: 240 3RF Dose Instruction: TAKE 1 TABLET BY MOUTH THREE TIMES A DAY Rx Instructions: TAKE 1 TABLET BY MOUTH THREE TIMES A DAY Primary Care Provider: Asim Cohn Referrals: Asim Cohn, DO [Primary Care Provider] - 3-5 Days if not improving Activity Restrictions/Additional Instructions: Follow-up with your APPLICATION P[employer]RATION TESTER as scheduled tomorrow. You have been given your first dose of antibiotic for urinary tract infection today. Take the remainder of your medication/antibiotic for the next week. Return with sustained high fever, new or worsening symptoms. Print Language: Polish Disposition Disposition: Home, Self Care
[2025-03-26 19:40] LABS: Internal QC Validated? YES +Cl - CLEAR BKGD; Pregnancy, Serum, hCG Quali. NEGATIVE Negative
[2025-03-26 19:44] LABS: Red Blood Cells-Urine 0 SEEN /hpf (0-5)
[2025-03-26 19:50] LABS: ALB/GLOB Ratio 1.2 RATIO (0.9-2.4); AST(SGOT) 44 U/L (<=31); Alanine Aminotransfer ALT/SGPT 52 U/L (<=34); Albumin, Serum 3.8 g/dL (3.5-5.0); Alkaline Phosphatase 84 U/L (35-104); Anion Gap 14 (5-15); BUN 16 mg/dL (4-19); BUN/Creat Ratio 14.2 RATIO (10-20); Calcium,Total 8.9 mg/dL (7.6-11.0); Carbon Dioxide 22.2 mmol/L (21.0-32.0); Chloride 101 mmol/L (98-108); Creatinine, Serum 1.09 mg/dL (0.70-1.20); EST Glomerular Filtration Rate 65 (>60); Estimated Creatinine Clearance 90.92 ml/min (50-250); Globulin 3.2 g/dL (2.2-4.2); Glucose 245 mg/dL (70-99); Potassium 4.5 mmol/L (3.3-5.1); Sodium Level 137 mmol/L (133-145); Total Bilirubin 0.64 mg/dL (0.00-1.30)
[2025-03-26 20:03] LABS: Troponin T High Sensitivity < 6 ng/L (<=14)
[2025-03-26 20:40] LABS: Glucose, Dipstick Normal (Normal); Ketone-Dipstick 5 mg/dl (Negative); Leukocyte Esterase-Dipstick 500 /ul (Negative); Nitrite-Dipstick Negative (Negative); Occult Blood-Urine Negative /ul (Negative); Protein-Dipstick 100 mg/dl (Negative); Specific Gravity, Urine 1.025 (1.002-1.030); Urine Bilirubin Dipstick Negative (Negative); Urine Urobilinogen Normal (Normal)
[2025-03-26 20:41] LABS: Bacteria 2+ /hpf (None Seen); Color, Urine Yellow (Yellow); Squamous Epithelial Cells - UA 5-10 SEEN /hpf (5-10); Urine Clarity Clear (Clear); White Blood Cells >100 SEEN /hpf (0-5)
[2025-03-26 20:42] LABS: Calcium Oxalate Crystals Ur 1+ /hpf (<or=2+); Hyaline Cast 5-10 SEEN /lpf (0-5); Mucous, Urine 1+ /hpf (<or=2+)
[2025-03-26 21:16] LABS: Amphetamine Urine NEGATIVE (<1000 ng/mL); Barbiturate Urine NEGATIVE (< 200 ng/mL); Benzodiazepine Urine NEGATIVE (< 200 ng/mL); Buprenorphine Urine NEGATIVE (< 200 ng/mL); Cocaine Urine NEGATIVE (< 300 ng/mL); Fentanyl, Urine NEGATIVE; Methadone Urine NEGATIVE (< 300 ng/mL); Opiates Urine NEGATIVE (< 300 ng/mL); Oxycodone, Urine NEGATIVE (< 100 ng/mL); PCP Urine NEGATIVE (< 25 ng/mL); THC Urine NEGATIVE (< 50 ng/mL)
[2025-03-26] MEDS: Smz/Tmp Ds Tablet 1 TABLET PO (21:30)
== END 2025-03-26 21:34 | disposition home or self-care (01) ==
PROVIDERS: Emergency Provider Emergency Medicine; PCP Family Medicine; Visit Provider Emergency Medicine
DX: N39.0 Urinary tract infection, site not specified (principal); J44.9 Chronic obstructive pulmonary disease, unspecified; E11.40 Type 2 diabetes mellitus with diabetic neuropathy, unspecified; E78.5 Hyperlipidemia, unspecified; R55 Syncope and collapse; I10 Essential (primary) hypertension; F32.A Depression, unspecified; F41.9 Anxiety disorder, unspecified; Z79.85 Long-term (current) use of injectable non-insulin antidiabetic drugs; Z79.899 Other long term (current) drug therapy; R94.31 Abnormal electrocardiogram [ECG] [EKG]; Z88.0 Allergy status to penicillin
CPT/HCPCS: 70450; 71045; 80053; 80307; 81001; 82077; 84484; 84703; 85025; 87086; 87088; 93005; 99285

== ENCOUNTER → 2025-03-27 | Outpatient (CLI) | payer MEDICARE, MEDICAID, SELFPAY ==
[2025-03-27 13:50] LABS: HIV Nonreactive (Nonreactive); Syphilis Antibodies Nonreactive (Nonreactive)
--- OUTSIDE RECORDS SUMMARY | 2025-03-27 22:15 | XMS RPT_ITS | CCD ---
Author Organization [facility] Care Team Providers Care Advertising Rep Name Role Phone Roof Franklyn ARNOLD Unavailable Kathryn Ravi Unavailable Unavailable CHRIS BURNETTE () Unavailable Unavailable CHRIS BURNETTE () Unavailable Unavailable TERI TY Unavailable Unavailable RAGHUNATHAN, STEPHEN Unavailable Unavailable BARNEY, VICENTE Unavailable Unavailable RAGHUNATHAN, STEPHEN Unavailable Unavailable BARNEY, VICENTE Unavailable Unavailable Megan Raviica L Unavailable Unavailable Kenneth Villanueva Primary Care Provider UnavailKenneth Dumont Referring Provider Unavailable Dr. Lorenzo Brown Attending Provider [phone] Shaun ARNOLD, PRECISION GRINDER-C Norma Attending Provider Dr. Lorenzo Brown Referring Provider [phone] Dr. Lorenzo Brown Other Provider Dr. Dominick Mcclendon Attending Provider [phone] Dr. Edward Baesley Attending Provider [phone] Shaun ARNOLD, PRECISION GRINDER-C Norma Referring Provider Shaun ARNOLD, PRECISION GRINDER-C Norma Other Provider [phone] Kenneth Villanueva Primary Care Provider UnavailKenneth Dumont Referring Provider Unavailable Shaun ARNOLD, PRECISION GRINDER-C Norma Attending Provider Dr. Lorenzo Brown Referring Provider [phone] Dr. Lorenzo Brown Other Provider Dr. Dominick Mcclendon Attending Provider [phone] Dr. Edward Beasley Attending Provider [phone] Shaun PRECISION GRINDER, PRECISION GRINDER-C Norma Referring Provider Shaun PRECISION GRINDER, PRECISION GRINDER-C Norma Other Provider [phone] Lee PRECISION GRINDER, PRECISION GRINDER-C Flori Attending Provider [phone] Jesus PRECISION GRINDER, PRECISION GRINDER-C Flori Referring Provider [phone] Dr. Gennaro Morgan Attending Provider Kenneth Villanueva Primary Care Provider Unavailabl e Kenneth Villanueva Referring Provider Unavailable Shaun PRECISION GRINDER, PRECISION GRINDER-C Norma Attending Provider LalitKenneth olivo Primary Care Provider UnavailDr. Dominick Metz Attending Provider [phone] [facility] Provider Unavailabl e Shaun PRECISION GRINDER, PRECISION GRINDER-C Norma Referring Provider Carlos PRECISION GRINDER, PRECISION GRINDER-C Felicia Attending Provider [phone] Dr. Lorenzo Brown Attending Provider [phone] Dr. Lorenzo Brown Other Provider Dr. Dominick Mcclendon Attending Provider [phone] Kenneth Villanueva [facility] Care Provider Unavailabl e LalitKenneth Referring Provider Unavailable Shaun PRECISION GRINDER, PRECISION GRINDER-C oNrma Attending Provider Dr. Lorenzo Brown Referring Provider [phone] Kenneth Villanueva [facility] Care Provider Unavailabl e Jesus PRECISION GRINDER, PRECISION GRINDER-C Flori Attending Provider [phone] Jesus PRECISION GRINDER, PRECISION GRINDER-C Flori Referring Provider [phone] Kenneth Perea Primary Care Provider Unavail able Jesus PRECISION GRINDER, PRECISION GRINDER-C Flori Attending Provider [phone] Jesus PRECISION GRINDER, PRECISION GRINDER-C Flori Referring Provider Kenneth Perea Referring Provider Unavailabl e Shaun PRECISION GRINDER, PRECISION GRINDER-C Norma Attending Provider Carlos PRECISION GRINDER, PRECISION GRINDER-C Fleicia Attending Provider [phone] Dr. Lorenzo Brown Attending Provider [phone] Dr. Lorenzo Brown Referring Provider [phone] Dr. Lorenzo Brown Other Provider Dr. Dominick Mcclendon Attending Provider [phone] Dr. Macy Arevalo Attending Provider [phone] Dr. Kenneth Villanueva Primary Care Provider [phone] Dr. Macy Arevalo Referring Provider [phone] Dr. Macy Arevalo Other Provider [phone] Kenneth Perea Primary Care Provider Unavail able Kenneth Perea Referring Provider Jany Dunn PRECISION GRINDER, PRECISION GRINDER-C Norma Attending Provider Jesus PRECISION GRINDER, PRECISION GRINDER-C Flori Attending Provider Dr. Kenneth Villanueva Primary Care Provider [phone] Dr. Belle Kimble Attending Provider [phone] Dr. Macy Arevalo Referring Provider [phone] Dr. Kenneth Villanueva Referring Provider [phone] Dr. Armando Zeng Attending Provider [phone] Dr. Ketan Nayak Attending Provider Nani DIAZ, Casimiro Unavailable Anshu Fry MD, Israelia Unavailable [phone] Kenneth Villanueva DO Primary Care Provider Dr. Kenneth Villanueva Primary Care Provider [phone] Kenneth Perea Referring Provider Dr. Lorenzo Longo Attending Provider Shaun PRECISION GRINDER, PRECISION GRINDER-C Norma Attending Provider Kenneth Perea Referring Provider Jany Dunn PRECISION GRINDER, PRECISION GRINDER-C Norma Attending Provider Dr. Kenneth Villanueva Primary Care Provider [phone] Dr. Lorenzo Brown Referring Provider Dr. Lorenzo Brown Other Provider Dr. Dominick Mcclendon Attending Provider Dr. Kenneth Villanueva Referring Provider Jesus PRECISION GRINDER, PRECISION GRINDER-C Flori Attending Provider Dr. Kenneth Villanueva Primary Care Provider Dr. Kenneth Villanueva Primary Care Provider Dr. Kenneth Villanueva Referring Provider Shaun PRECISION GRINDER, PRECISION GRINDER-C Norma Attending Provider Jesus PRECISION GRINDER, PRECISION GRINDER-C Flori Attending Provider Kenneth Villanueva DO Primary Care Provider Kenneth Perea Referring Provider UnavailDr. Lorenzo Kumar Attending Provider Dr. Kenneth Villanueva Primary Care Provider Dr. Kenneth Villanueva DO Primary Care Provider Shelby DIAZ, Dr. Barnard Attending Provider Shelby DIAZ, Dr. Barnard Referring Provider Dr. Kenneth Villanueva DO Referring Provider Jesus PRECISION GRINDER-CFlori Attending Provider Dr. Kenneth Villanueva DO Attending Provider Jesus PRECISION GRINDER-CFlori Referring Provider Kianna Del Rio Attending Provider RAJIV BAER Attending Unavailable SELF Referring Unavailable KENNETH VILLANUEVA Primary Care Unavailable RAJIV BAER Referring Unavailable KENNETH VILLANUEVA Primary Care Unavailable Jesus ARNOLD-CFlori Other Provider [phone] Dominick Mcclendon DO Attending Provider [phone] Carlos PRECISION GRINDER-CFelicia Attending Provider Carlos PRECISION GRINDER-CFelicia Referring Provider Dr. Lisa Bailey DO Referring Provider Dr. Lisa Bailey DO Emergency Provider Dr. Kenneth Villanueva DO Primary Care Provider Kenneth Villanueva Primary Care Unavailable Flori Lee NP Attending Unavailable Kenneth Villanueva Referring Unavailable Brown, Dominick Attending Unavailable Lalit, Kenneth Primary Care Unavailable Lee PRECISION GRINDER, Flori Consulting Unavailable Lee PRECISION GRINDER, Flori Referring Unavailable Lalit, Kenneth Primary Care Unavailable Lee PRECISION GRINDER, Flori Attending Unavailable Lee PRECISION GRINDER, Flori Referring Unavailable Lalit, Kenneth Referring Unavailable Lalit, Kenneth Primary Care Unavailable Thang BENJAIMN, Kianna Arroyo Attending Unavail able Carlos PRECISION GRINDER, Felicia Attending Unavailable Lalit, Kenneth Primary Care Unavailable Lalit, Kenneth Referring Unavailable Brown, Dominick Attending Unavailable Lalit, Kenneth Primary Care Unavailable Lee PRECISION GRINDER, Flori Referring Unavailable Lalit, Kenneth Primary Care Unavailable Malini, Ketan Attending Unavailable Malini, Ketan Referring Unavailable Lalit OLS, Kenneth Referring Unavailable Lalit OLS, Kenneth Primary Care Unavailable Malini, Ketan Attending Unavailable Carlos PRECISION GRINDER, Felicia Referring Unavailable Carlos PRECISION GRINDER, Felicia Attending Unavailable Lalit, Kenneth Primary Care Unavailable Lalit, Kenneth Attending Unavailable Lalit, Kenneth Primary Care Unavailable Lalit, Kenneth Referring Unavailable Lalit, Kenneth Primary Care Unavailable Ungur, Remus Referring Unavailable Ungur, Remus Attending Unavailable Lalit, Kenneth Primary Care Unavailable Malini, Houston Attending Unavailable Malini, Ketan Referring Unavailable Lalit, Kenneth Attending Unavailable Lalit, Kenneth Primary Care Unavailable Shelby, Jayaprakas Referring Unavailable Shelby, Jayaprakas Attending Unavailable Lalit, Kenneth Primary Care Unavailable Lalit, Kenneth Attending Unavailable Lalit, Kenneth Primary Care Unavailable Lalit, Kenneth Referring Unavailable Lee PRECISION GRINDER, Flori Attending Unavailable Lalit, Kenneth Primary Care Unavailable Lalit, Kenneth Referring Unavailable Lee PRECISION GRINDER, Flori Attending Unavailable Lalit, Kenneth Primary Care Unavailable Lee PRECISION GRINDER, Flori Attending Unavailable Lalit, Kenneth Referring Unavailable Lalit, Kenneth Primary Care Unavailable Lalit, Kenneth Referring Unavailable Malini, Houston Attending Unavailable Ungur Dr. Lisa WELLS Attending Provider [phone] Dr. Kenneth Villanueva DO Primary Care Provider Dr. Kenneth Villanueva DO Referring Provider [phone] Jesus PRECISION GRINDER-C, Flori Attending Provider Dr. Kenneth Villanueva DO Attending Provider Jesus PRECISION GRINDER-C, Flori Referring Provider Kianna Del Rio Attending Provider Flori Carcamo Other Provider Dr. Dominick Mcclendon DO Attending Provider Carlos PRECISION GRINDERFelicia Coughlin Attending Provider Felicia Courtney Referring Provider Dr. Lisa Bailey DO Attending Provider Dr. Lisa Bailey DO Referring Provider Dr. Lisa Bailey DO Emergency Provider Miguel Angel Parikh MD Emergency Provider Allergies Allergy Classification Reported Allergen(s) Allergy Type Date of Onset Reaction(s) Facility (2 sources) acetaminophen / HYDROcodone drug allergy 7 [facility] [employer] Phone: (20 sources) nabumetone; Translations: [NABUMETONE] drug allergy 6 Swelling [facility] [employer] Phone: (3 sources) penicillin drug allergy 3 Swelling & shortness of breath [facility] [employer] Phone: (8 sources) acetaminophen / HYDROcodone; Translations: [HYDROCODONE-ACET AMINOPHEN] Drug Allergy 6 Rash, Itching [facility] (20 sources) Penicillins; Translations: [PENICILLINS] Propensity to adverse reactions to drug (disorder) 5 Swelling, Shortness of Breath [facility] (20 sources) Doxycycline Drug Allergy 2 Itching [facility] (20 sources) HYDROcodone; Translations: [hydrocodone bitartrate] Drug Allergy 2 Itching [facility] (20 sources) carvedilol Drug Allergy 2 shortness of breath, chest pain [facility] (6 sources) Amoxicillin Drug Allergy 5 Anaphylaxis [facility] (5 sources) metroNIDAZOLE Drug Allergy 5 SOB [facility] (1 source) Amoxicillin Drug Allergy 5 [facility] (1 source) carvedilol Drug Allergy 5 [facility] (1 source) Doxycycline Drug Allergy 5 [facility] (1 source) metroNIDAZOLE Drug Allergy 5 [facility] Medications Current Medications Medication Drug Class(es) Dates Sig (Normalized) Sig (Original) amitriptyline hydrochloride 10 mg oral tablet (4 sources) Tricyclic Antidepressant Start: 01-17-2016 amitriptyline (ELAVIL) 10 mg tablet TWICE A DAY 01/17/2016 Active Comment on above: TWICE A DAY atorvastatin 80 mg oral tablet (20 sources) HMG-CoA Reductase Inhibitor Start: 03-26-2025 Start: 01-19-2025 take 2 tablets by mo [facility] at bedtime Atorvastatin 40 mg tablet Active 80 mg PO AT BEDTIME January 19, 2025 9:45am Start: 04-09-2021 End: 03-26-2025 Start: 04-09-2021 End: 01-19-2025 take 1 tablet by mouth at bedtime Atorvastatin 40 mg tablet Discontinued 40 mg PO AT BEDTIME March 23, 2024 1:30pm January 19, 2025 9:47am Comment on above: AT BEDTIME baclofen 20 mg oral tablet (20 sources) gamma-Aminobutyri c Acid-ergic Agonist Start: 11-11-2016 take 1 tablet by mouth three times daily as needed for muscle spasms baclofen (LIORESAL) 20 mg tablet Indications: Neck pain, musculoskeletal , Sleep related leg cramps Take 1 tablet by mouth three times daily as needed (muscle spasms). 60 tablet 2 11/11/2016 Active Start: 01-17-2016 End: 09-24-2017 Comment on above: [facility] three times daily as needed (muscle spasms). Blood Pressure Monitor (Blood Pressure Kit) kit (19 sources) Start: 10-26-2022 Blood Pressure Monitor (Blood Pressure Kit) kit Active 0 .Route October 26, 2022 1:00am As directed Start: 10-26-2022 Blood Pressure Monitor (Blood Pressure Kit) kit Active 0 .Route October 26, 2022 12:00am As directed Boric Acid (Azo Boric Acid) 600 mg suppository (3 sources) Start: 02-07-2025 Boric Acid (Az o Boric Acid) 600 mg suppository Active 600 mg VAGINAL .QD 21 February 07, 2025 12:00am 168 hr cloNIDine 0.09802 mg/hr transdermal system (6 sources) Central alpha-2 Adrenergic Agonist Start: 06-13-2024 Start: 06-13-2024 Clonidine 0.2 mg/24 hr patch weekly Active 1 NMA TOPICAL EVERY WEEK June 13, 2024 12:00am COMPOUNDED PRESCRIPTION (12 sources) Start: 03-16-2017 COMPOUNDED PRE SCRIPTION Indications: Hypoxemia requiring supplemental oxygen supplemental oxygen via nasal cannula 3 LPM. Please also provide portable equipment as patient is active outside of the home. Diagnosis: hypoxemia. 1 Each 03/16/2017 Active Start: 03-16-2017 COMPOUNDED PRE SCRIPTION Indications: Hypoxemia requiring supplemental oxygen supplemental oxygen via nasal cannula 3 LPM. Please also provide portable equipment as patient is active outside of the home. Diagnosis: hypoxemia. 1 Each 0 03/16/2017 Active Start: 05-21-2016 COMPOUNDED PRE SCRIPTION Please provide patient with BiPAP with settings 19/13 cm of water with humidification. Please use a small [employer] mask. Diagnosis: left eye a 1 Each 0 05/21/2016 Active Comment on above: Please provide patie nt with BiPAP with settings 19/13 cm of water with humidification. Please use a small [employer] mask. Diagnosis: left eye a supplemental oxygen via nasal cannula 3 LPM. Please also provide portable equipment as patient is active outside of the home. Diagnosis: hypoxemia. Compression Knee Highs (6 sources) Start: 08-18-20 16 Compression Knee Highs Indications: Lower leg edema , Varicose veins of both lower extremities with inflammation KNEE HIGH COMPRESSION STOCKINGS 20-30 MM Hg. DX: ICD9: 782.3, ICD10: R60.0; ICD9: 454.1, ICD10: I83.12, I83.11 Vicente Barney MD 1 Each 0 08/18/2016 Active Comment on above: KNEE HIGH COMPRESSIO N STOCKINGS 20-30 MM Hg. DX: ICD9: 782.3, ICD10: R60.0; ICD9: 454.1, ICD10: I83.12, I83.11 Vicente Barney MD [id number] 0.3 ml EPINEPHrine 1 mg/ml auto-injector (5 sources) alpha-Adrenergic Agonist, beta-Adrenergic Agonist, Catecholamine Start: 02-08-20 escitalopram 5 mg oral tablet (8 sources) Serotonin Reuptake Inhibitor Start: 05-21-20 take 1 tablet by mouth once daily escitalopram oxalate (LEXAPRO) 5 mg tablet Indications: Adjustment disorder with depressed mood Take 1 tablet by mouth once daily. 90 tablet 3 05/21/2016 Active Comment on above: Take 1 tablet by [facility] once daily. FLUoxetine 40 mg oral capsule (20 sources) Serotonin Reuptake Inhibitor Start: 03-08-20 Start: 11-10-2021 End: 07-18-2024 Start: 10-29-2020 End: 04-01-2021 Start: 10-29-2020 End: 09-05-2021 Fluticasone Furoate-Vilanter ol (20 sources) Corticosteroid, beta2-Adrenergic Agonist Start: 12-13-2024 Start: 12-13-2024 Fluticasone Fu roate-Vilanterol (Breo Ellipta) 200-25 mcg/dose blister with device Active 1 NMA INHALATION DAILY December 13, 2024 1:53pm Start: 09-18-2024 End: 12-13-2024 Start: 09-18-2024 End: 12-13-2024 Fluticasone Furoate-Vilanter ol (Breo Ellipta) 200-25 mcg/dose blister with device Discontinued 1 NMA INHALATION DAILY September 18, 2024 3:45pm December 13, 2024 1:54pm Start: 02-03-2024 End: 09-18-2024 Start: 02-03-2024 End: 09-18-2024 Fluticasone Furoate-Vilanter ol (Breo Ellipta) 200-25 mcg/dose blister with device Discontinued 1 NMA INHALATION DAILY February 03, 2024 2:01pm September 18, 2024 3:45pm Start: 02-03-2024 Fluticasone Fu roate-Vilanterol (Breo Ellipta) 200-25 mcg/dose blister with device Active 1 INH INHALATION DAILY February 03, 2024 2:01pm Start: 09-24-2023 End: 02-03-2024 Start: 09-24-2023 End: 02-03-2024 Fluticasone Furoate-Vilanter ol (Breo Ellipta) 200-25 mcg/dose blister with device Discontinued 1 NMA INHALATION DAILY 60 September 24, 2023 10:43am February 03, 2024 2:03pm Start: 09-24-2023 End: 02-03-2024 Fluticasone Furoate-Vilanter ol (Breo Ellipta) 200-25 mcg/dose blister with device Discontinued 1 INH INHALATION DAILY 60 September 24, 2023 10:43am February 03, 2024 2:03pm Start: 09-24-2023 Fluticasone Fu roate-Vilanterol (Breo Ellipta) 200-25 mcg/dose blister with device Active 1 INH INHALATION DAILY 60 September 24, 2023 9:43am Start: 05-17-2023 BREO ELLIPTA 2 00-25 mcg/dose inhaler 05/17/2023 Active Start: 01-27-2023 End: 09-24-2023 Start: 01-27-2023 End: 09-24-2023 Fluticasone Furoate-Vilanter ol (Breo Ellipta) 200-25 mcg/dose blister with device Discontinued 1 NMA INHALATION DAILY 60 January 27, 2023 9:20am September 24, 2023 10:44am Start: 01-27-2023 End: 09-24-2023 Fluticasone Furoate-Vilanter ol (Breo Ellipta) 200-25 mcg/dose blister with device Discontinued 1 INH INHALATION DAILY 60 January 27, 2023 9:20am September 24, 2023 10:44am Start: 01-27-2023 End: 09-24-2023 Fluticasone Furoate-Vilanter ol (Breo Ellipta) 200-25 mcg/dose blister with device Discontinued 1 INH INHALATION DAILY 60 January 27, 2023 8:20am September 24, 2023 9:44am Start: 01-27-2023 Fluticasone Fu roate-Vilanterol (Breo Ellipta) 200-25 mcg/dose blister with device Active 1 INH INHALATION DAILY 60 January 27, 2023 8:20am Start: 01-27-2023 Fluticasone Fu roate-Vilanterol (Breo Ellipta) 200-25 mcg/dose blister with device Active 1 INH INHALATION DAILY 60 January 27, 2023 9:20am Start: 07-16-2022 End: 01-27-2023 Start: 07-16-2022 End: 01-27-2023 Fluticasone Furoate-Vilanter ol (Breo Ellipta) 200-25 mcg/dose blister with device Discontinued 1 NMA INHALATION DAILY July 16, 2022 1:05pm January 27, 2023 9:20am Start: 07-16-2022 End: 01-27-2023 Fluticasone Furoate-Vilanter ol (Breo Ellipta) 200-25 mcg/dose blister with device Discontinued 1 INH INHALATION DAILY July 16, 2022 12:05pm January 27, 2023 8:20am Start: 07-16-2022 End: 01-27-2023 Fluticasone Furoate-Vilanter ol (Breo Ellipta) 200-25 mcg/dose blister with device Discontinued 1 INH INHALATION DAILY July 16, 2022 1:05pm January 27, 2023 9:20am Start: 07-16-2022 Fluticasone Fu roate-Vilanterol (Breo Ellipta) 200-25 mcg/dose blister with device Active 1 INH INHALATION DAILY July 16, 2022 12:05pm Start: 09-04-2021 End: 07-16-2022 Start: 09-04-2021 End: 07-16-2022 Fluticasone Furoate-Vilanter ol (Breo Ellipta) 200-25 mcg/dose blister with device Discontinued 1 NMA INHALATION DAILY September 04, 2021 1:00am July 16, 2022 1:06pm Start: 09-04-2021 End: 07-16-2022 Fluticasone Furoate-Vilanter ol (Breo Ellipta) 200-25 mcg/dose blister with device Discontinued 1 INH INHALATION DAILY September 04, 2021 1:00am July 16, 2022 1:06pm Start: 09-04-2021 End: 07-16-2022 Fluticasone Furoate-Vilanter ol (Breo Ellipta) 200-25 mcg/dose blister with device Discontinued 1 INH INHALATION DAILY September 04, 2021 12:00am July 16, 2022 12:06pm Start: 09-04-2021 Fluticasone Fu roate-Vilanterol (Breo Ellipta) 200-25 mcg/dose blister with device Active 1 INH INHALATION DAILY September 04, 2021 1:00am Start: 03-25-2020 End: 07-02-2020 Start: 03-25-2020 End: 07-02-2020 Fluticasone Furoate-Vilanter ol (Breo Ellipta) 200-25 mcg/dose blister with device Discontinued 1 NMA INHALATION daily March 25, 2020 10:41am July 02, 2020 9:28am after inhalation, rinse mouth with water and spit out; do not swallow Start: 03-25-2020 End: 07-02-2020 Fluticasone Furoate-Vilanter ol (Breo Ellipta) 200-25 mcg/dose blister with device Discontinued 1 INH INHALATION daily March 25, 2020 9:41am July 02, 2020 8:28am after inhalation, rinse mouth with water and spit out; do not swallow Start: 03-25-2020 End: 07-02-2020 Fluticasone Furoate-Vilanter ol (Breo Ellipta) 200-25 mcg/dose blister with device Discontinued 1 INH INHALATION daily March 25, 2020 10:41am July 02, 2020 9:28am after inhalation, rinse mouth with water and spit out; do not swallow Start: 11-15-2018 End: 03-25-2020 Start: 11-15-2018 End: 03-25-2020 Fluticasone Furoate-Vilanter ol (Breo Ellipta) 200-25 mcg/dose blister with device Discontinued 1 NMA INHALATION daily November 15, 2018 1:00am March 25, 2020 10:43am after inhalation, rinse mouth with water and spit out; do not swallow Start: 11-15-2018 End: 03-25-2020 Fluticasone Furoate-Vilanter ol (Breo Ellipta) 200-25 mcg/dose blister with device Discontinued 1 INH INHALATION daily 60 November 15, 2018 12:00am March 25, 2020 9:43am after inhalation, rinse mouth with water and spit out; do not swallow Start: 11-15-2018 End: 03-25-2020 Fluticasone Furoate-Vilanter ol (Breo Ellipta) 200-25 mcg/dose blister with device Discontinued 1 INH INHALATION daily 60 November 15, 2018 1:00am March 25, 2020 10:43am after inhalation, rinse mouth with water and spit out; do not swallow FREESTYLE CHARLA 14 DAY SENSO R kit (4 sources) Start: 05-17-2023 FREESTYLE LIBR E 14 DAY SENSOR kit 05/17/2023 Active Start: 05-17-2023 FREESTYLE LIBR E 14 DAY SENSOR kit gabapentin 100 mg oral capsu le (20 sources) Anti-epileptic Agent Start: 03-26-2025 Start: 04-28-2017 End: 03-08-2025 Start: 04-28-2017 End: 03-08-2025 take 1 capsule by mouth three times daily Gabapentin 100 mg capsule Discontinued 100 mg PO THREE TIMES A DAY September 24, 2017 1:00am March 08, 2025 2:49pm Comment on above: TAKE 1 CAPSULE BY MO UTH THREE TIMES A DAY Take by mouth. Take 1 capsule by mo uth daily at bedtime. For RLS-PRN does not take nightly handicap Placcard (4 sources) Start: 01-19-2025 handicap Placcard Active 0 .Route .MEDSUPPLY 1 January 19, 2025 12:00am Dx: COPD Exp: 01/2030 Incontinence Pad, Liner, Disp (PREVAIL BLADDER CONTROL PAD) pads (6 sources) Start: 06-29-2016 Incontinence Pad, Liner, Disp (PREVAIL BLADDER CONTROL PAD) pads 1 Units as needed. 50 Each 12 06/29/2016 Active Comment on above: 1 Units as needed. labetalol hydrochloride 200 mg oral tablet (9 sources) beta-Adrenergic Vishal Start: 03-08-2025 Start: 03-08-2025 Labetalol 200 mg tablet Active 400 mg PO March 08, 2025 12:00am Start: 01-19-2025 magnesium oxide 400 mg oral capsule (6 sources) Start: 07-18-2024 miSOPROStol 0.2 mg oral tablet (6 sources) Prostaglandin E1 Analog Start: 04-27-2017 miSOPROStol (CYTOTEC) 200 mcg tablet 2 tablets as directed. Take 2 tabs the night before & 2 tabs the morning of the procedure - vaginally. 4 tablet 04/27/2017 Active Comment on above: 2 tablets as directe d. Take 2 tabs the night before & 2 tabs the morning of the procedure - vaginally. MOUNJARO 5 mg/0.5 mL pen injector (1 source) Start: 05-25-2024 inject 5 mg by subcutaneous injection every week MOUNJARO 5 mg/0.5 mL pen injector Inject 5 mg subcutaneously one time a week. 05/25/2024 Active multivitamin,tx-i yazmin-minerals (THERAGRAN M) tab (6 sources) Start: 09-30-2015 take 1 tablet by mouth once daily multivitamin,tx-ir on-minerals (THERAGRAN M) tab Take 1 tablet by mouth once daily. 90 tablet 3 09/30/2015 Active Comment on above: Take 1 tablet by lynne once daily. nystatin [id number] unt/ml topical cream (3 sources) Polyene Antifungal Start: 03-08-2025 pantoprazole 40 mg delayed release oral tablet (20 sources) Proton Pump Inhibitor Start: 11-07-2018 PEP device (20 sources) Start: 10-08-2022 PEP device Active 0 .ROUTE .MEDSUPPLY October 08, 2022 1:00am with training Start: 10-08-2022 PEP device Act kathleen 0 .ROUTE .MEDSUPPLY October 08, 2022 12:00am with training potassium chloride 10 meq ex tended release oral tablet (20 sources) Start: 06-13-2024 Start: 06-03-2023 End: 06-13-2024 Start: 06-17-2022 End: 08-14-2022 Start: 04-11-2018 End: 09-04-2021 Start: 04-11-2018 End: 05-08-2019 take 10 mEq by mouth twice daily Potassium Chloride Discontinued 10 MEQ PO TWICE A DAY April 11, 2018 9:28am May 08, 2019 4:44pm Start: 04-28-2017 take 4 tablets by mo [facility] every twenty-four hours K-TAB 10 MEQ CR-TABS Four tabs once daily POTASSIUM CHLORIDE [id number] Kathryn Ravi Start: 12-03-2016 End: 06-13-2024 Start: 12-03-2016 End: 06-17-2022 take 1 tablet by mouth once daily Potassium Chloride 20 mEq tablet,ER particles/crystals Discontinued 20 meq PO DAILY September 04, 2021 11:07am June 17, 2022 2:52pm Start: 08-28-2016 take 4 tablets by mo [facility] once daily potassium chloride (K-TAB) 10 mEq tablet Indications: Lower leg edema Take 4 tablets by mouth once daily. 120 tablet 11 08/28/2016 Active Comment on above: Take 4 tablets by mo [facility] once daily. psyllium 520 mg oral capsule (6 sources) Start: 07-18-2024 spironolactone 50 mg oral ta blet (20 sources) Aldosterone Antagonist Start: 06-13-2024 Start: 11-10-2021 End: 12-07-2023 Start: 09-04-2021 End: 11-10-2021 Start: 09-04-2021 End: 11-10-2021 take 2 tablets by mouth once daily Spironolactone 25 mg tablet Discontinued 50 mg PO DAILY September 05, 2021 3:49pm November 10, 2021 9:42am Start: 09-04-2021 End: 09-05-2021 take 1 tablet by mouth once daily Spironolactone 25 mg tablet Discontinued 25 mg PO DAILY September 04, 2021 1:00am September 05, 2021 3:55pm Start: 07-29-2016 End: 11-10-2018 Start: 07-29-2016 End: 11-10-2018 take 1 tablet by mouth twice daily Spironolactone 25 MG tablet Discontinued 25 mg PO TWICE A DAY November 30, 2017 11:40am November 10, 2018 11:09am Comment on above: TAKE [address] [facility] TWICE DAILY sulfamethoxazole 800 mg / trimethoprim 160 mg oral tablet (20 sources) Dihydrofolate Reductase Inhibitor Antibacterial, Sulfonamide Antimicrobial Start: 03-26-2025 Start: 02-09-2024 End: 06-13-2024 Start: 02-09-2024 End: 06-13-2024 Sulfamethoxazole-Trimethopri m (Bactrim Ds) 800-160 mg tablet Discontinued 1 {tbl} PO TWICE A DAY February 09, 2024 12:00am June 13, 2024 10:37am Start: 09-11-2022 End: 09-22-2022 Start: 09-11-2022 End: 09-22-2022 Sulfamethoxazole-Trimethopri m 800-160 mg tablet Discontinued 1 {tbl} PO TWICE A DAY September 11, 2022 1:00am September 22, 2022 11:08am Start: 09-11-2022 End: 09-22-2022 take 1 tablet by mouth twice daily Sulfamethoxazole-Trimethoprim Discontinued 1 TABLET PO TWICE A DAY September 11, 2022 1:00am September 22, 2022 11:08am SUMAtriptan 100 mg oral tablet (9 sources) Serotonin-1b and Serotonin-1d Receptor Agonist Start: 05-28-2016 SUMAtriptan (IMITREX ) 100 mg tablet Indications: Migraine without aura and without status migrainosus, not intractable Take 1 tablet by mouth as needed for Migraine Headache (see administration instructions). 7 tablet 6 05/28/2016 Active Comment on above: Take 1 tablet by [facility] as needed for Migraine Headache (see administration instructions). Tirzepatide (Mounjaro) 2.5 mg/0.5 mL pen injector (1 source) Start: 03-08-2025 Tirzepatide (M ounjaro) 2.5 mg/0.5 mL pen injector Active 2.5 mg SC EVERY WEEK March 08, 2025 12:00am for 4 weeks Tirzepatide (Mounjaro) 5 mg/0.5 mL pen injector (4 sources) Start: 06-13-2024 Tirzepatide (M ounjaro) 5 mg/0.5 mL pen injector Active mg SC June 13, 2024 12:00am 24 hr topiramate 50 mg extended release oral capsule (20 sources) Start: 03-08-2025 Start: 07-18-2024 take 1 capsule by mo [facility] once daily Topiramate (Trokendi Xr) 100 mg capsule,extended release 24hr Active 150 mg PO daily July 18, 2024 9:47am Start: 06-13-2024 End: 07-18-2024 Start: 02-03-2024 End: 06-13-2024 Start: 12-07-2023 End: 02-03-2024 take 1 capsule by mouth every twenty-four hours at bedtime Topiramate 100 mg capsule,extended release 24hr Discontinued 100 mg PO AT BEDTIME December 07, 2023 10:14am February 03, 2024 1:34pm Start: 05-17-2023 TROKENDI XR 10 0 mg capsule 50mg in AM and 100mg at bedtime 05/17/2023 Active Start: 05-17-2023 TROKENDI XR 10 0 mg capsule Start: 10-26-2022 End: 12-07-2023 Start: 04-01-2021 End: 12-07-2023 take 1 capsule by mouth every twenty-four hours at bedtime Topiramate 100 mg capsule,extended release 24hr Discontinued 100 mg PO AT BEDTIME April 01, 2021 3:06pm December 07, 2023 10:19am Start: 04-01-2021 End: 02-03-2024 take 100 mg by mouth at bedtime Topiramate Discontinued 100 MG PO AT BEDTIME December 07, 2023 10:14am February 03, 2024 1:34pm Start: 10-29-2020 End: 04-01-2021 Start: 10-29-2020 End: 04-01-2021 take 1 capsule by mouth every twenty-four hours at bedtime Topiramate 100 MG capsule,extended release 24hr Discontinued 100 mg PO AT BEDTIME October 29, 2020 1:00am April 01, 2021 3:06pm Start: 11-07-2018 End: 03-31-2019 take 1 capsule by mouth every twenty-four hours at bedtime Topiramate 50 MG capsule,extended release 24hr Discontinued 50 mg PO AT BEDTIME November 07, 2018 1:00am March 31, 2019 10:26am Start: 10-02-2017 End: 09-22-2022 Comment on above: Take 1 capsule by [facility] once daily. traZODone hydrochloride 50 m g oral tablet (20 sources) Serotonin Reuptake Inhibitor Start: 03-08-2025 Start: 03-08-2025 take 1 tablet by [facility] at bedtime Trazodone 50 mg tablet Active 50 mg PO AT BEDTIME March 08, 2025 12:00am Start: 05-17-2023 traZODone (TIFFANIE YREL) 50 mg tablet 05/17/2023 Active Start: 11-10-2021 End: 01-19-2025 Start: 11-10-2021 End: 01-19-2025 take 1 tablet by mouth at bedtime Trazodone 100 mg tablet Discontinued 100 mg PO AT BEDTIME July 18, 2024 9:47am January 19, 2025 9:46am (20 sources) Start: 03-08-2025 Start: 02-07-2025 Start: 01-19-2025 Start: 07-18-2024 Start: 06-13-2024 Start: 12-07-2023 End: 02-03-2024 Start: 10-26-2022 Start: 10-08-2022 Start: 10-08-2022 End: 10-27-2022 Start: 09-04-2021 End: 09-05-2021 Start: 04-01-2021 End: 12-07-2023 Start: 10-29-2020 End: 09-04-2021 Start: 12-13-2017 End: 12-14-2017 Completed/Discontinued Medications Medication Drug Class(es) Dates Sig (Normalized) Sig (Original) Acetaminophen / HYDROcodone (5 sources) Opioid Agonist End: 04-29-2017 take 1-2 tablets by mouth every six hours as needed for pain HYDROCODONE-ACETAM INOPHEN 5-500 MG TABS 1-2 tabs by mouth every 6 hrs as needed for pain HYDROCODONE-ACETAM INOPHEN [id number] Kathryn Ravi take 1-2 tablets by mouth every six hours as needed for pain HYDROCODONE-ACETAMINOPHEN 5-500 MG TABS 1-2 tabs by mouth every 6 hrs as needed for pain HYDROCODONE-ACETAMINOPHEN [id number] Keara Ambrosio acetaminophen 325 mg / oxyCO DONE hydrochloride 5 mg oral tablet (20 sources) Opioid Agonist Start: 09-11-2022 End: 10-26-2022 Start: 09-11-2022 End: 10-26-2022 Oxycodone-Acetaminophen 5-32 5 mg tablet Discontinued 1 {tbl} PO EVERY 6 HOURS NEEDED as needed for Pain 09 05September 11, 2022 October 26, 2022 11:53am Start: 09-11-2022 End: 10-26-2022 take 1 tablet by mouth every six hours as needed Oxycodone-Acetaminophen Discontinued 1 TABLET PO EVERY 6 HOURS NEEDED 12 September 11, 2022 October 26, 2022 11:53am [id number] actuat albuterol 0.09 mg/actuat metered dose inhaler (20 sources) beta2-Adrenergic Agonist Start: 09-04-2021 End: 11-10-2021 Albuterol Sulfate (Ventolin Hfa) 90 mcg/actuation HFA aerosol inhaler Discontinued 1 NMA INHALATION ONCE September 04, 2021 1:00am November 10, 2021 9:37am Start: 09-04-2021 End: 11-10-2021 Albuterol Sulfate (Ventolin Hfa) 90 mcg/actuation HFA aerosol inhaler Discontinued 1 INH INHALATION ONCE September 04, 2021 1:00am November 10, 2021 9:37am Start: 08-08-2021 End: 12-13-2024 Start: 08-08-2021 End: 12-13-2024 Albuterol Sulfate 90 mcg/act uation HFA aerosol inhaler Discontinued 2 NMA INHALATION EVERY 6 HOURS as needed for SOB 8.5 June 20, 2023 8:09pm September 24, 2023 10:44am Start: 08-08-2021 End: 02-03-2024 take 1 puff(s) by inhalation every six hours Albuterol Sulfate Discontinued 2 PUFF INHALATION EVERY 6 HOURS 8.5 July 16, 2022 12:05pm June 20, 2023 7:09pm Start: 05-18-2019 End: 07-02-2020 Start: 05-18-2019 End: 07-02-2020 Albuterol Sulfate (Ventolin Hfa) 90 mcg/actuation HFA aerosol inhaler Discontinued 2 NMA INHALATION EVERY 6 HOURS March 22, 2020 10:34am July 02, 2020 9:28am Start: 05-18-2019 End: 07-02-2020 take 1 puff(s) by inhalation every six hours Albuterol Sulfate (Ventolin Hfa) 90 mcg/actuation HFA aerosol inhaler Discontinued 2 PUFF INHALATION EVERY 6 HOURS March 22, 2020 9:34am July 02, 2020 8:28am Start: 06-01-2017 take 2 puff(s) by in halation every four to six hours as needed albuterol HFA (VENTOLIN HFA) 90 mcg/actuation inhaler 2 Puffs every 4-6 hours as needed for shortness of breath 1 Inhaler 6 06/01/2017 Active Start: 12-03-2016 End: 05-18-2019 Start: 12-03-2016 End: 05-18-2019 take 2.5 mg by inhalation every four hours as needed for wheezing Albuterol Sulfate 2.5 MG/3 ML solution for nebulization Discontinued 2.5 mg INHALATION EVERY 4 HOURS NEEDED as needed for Sob &/Or Wheezing December 03, 2016 1:00am May 18, 2019 3:09pm Start: 05-28-2016 albuterol (PRO VENTIL) 2.5 mg /3 mL (0.083 %) nebulizer solution Indications: Uncomplicated severe persistent asthma Use 3 mL via nebulizer every 6 hours as needed. As needed via nebulizer for asthma 1 Package 2 05/28/2016 Active ALBUTEROL SULFAT E (2.5 MG/3ML) 0.083% NEBU Use 3 ml via nubulizer every 6 hrs as needed ALBUTEROL SULFATE [id number] Keara Ambrosio PROAIR HFA 108 ( 90 Base) MCG/ACT AERS 2 puffs every 4-6 hrs as needed for shortness of breath ALBUTEROL SULFATE [id number] Keara Ambrosio PROAIR HFA 108 ( 90 Base) MCG/ACT AERS 2 puffs every 4-6 hrs as needed for shortness of breath ALBUTEROL SULFATE [id number] Keara Ambrosio Comment on above: Use 3 mL via nebuliz er every 6 hours as needed. As needed via nebulizer for asthma 2 Puffs every 4-6 ho urs as needed for shortness of breath albuterol 0.833 mg/ml / ipratropium bromide 0.167 mg/ml inhalation solution (20 sources) Anticholinergic, beta2-Adrenergic Agonist Start: 3 End: 5 take 1 mL by inhalation four times daily as needed Ipratropium-Albutero l 0.5 mg-3 mg(2.5 mg base)/3 mL solution for nebulization Discontinued 3 mL INHALATION .QID as needed for SOB 180 October 13, 2024 1:08pm December 13, 2024 1:54pm Start: 10-27-2022 End: 09-24-2023 take 1 mL by inhalation four times daily Ipratropium-Albuterol Active 3 ML INHALATION .QID 180 September 24, 2023 10:43am Start: 11-10-2021 End: 10-27-2022 take 1 mL by inhalation three times daily as needed Ipratropium-Albuterol 0.5 mg-3 mg(2.5 mg base)/3 mL solution for nebulization Discontinued 3 mL INHALATION THREE TIMES A DAY as needed for SOB December 08, 2021 12:58pm October 27, 2022 11:13am Start: 11-10-2021 End: 10-27-2022 take 1 mL by inhalation three times daily Ipratropium-Albuterol Discontinued 3 ML INHALATION THREE TIMES A DAY December 08, 2021 11:58am October 27, 2022 10:13am Start: 11-28-2019 End: 12-13-2024 Start: 11-28-2019 End: 11-10-2021 take 1 mL by inhalation every four hours Ipratropium-Albuterol 0.5 mg-3 mg(2.5 mg base)/3 mL solution for nebulization Discontinued 3 mL INHALATION EVERY 4 HOURS August 14, 2021 10:51pm November 10, 2021 9:44am Start: 11-28-2019 End: 11-10-2021 take 1 mL by inhalation every four hours Ipratropium-Albuterol Discontinued 3 ML INHALATION EVERY 4 HOURS August 14, 2021 9:51pm November 10, 2021 8:44am Start: 05-08-2016 take 3 mL by inhalat ion every six hours as needed ipratropium-albuterol (DUONEB) 0.5 mg-3 mg(2.5 mg base)/3 mL nebu Inhale 3 mL as instructed every 6 hours as needed (shortnss of breath or hweezing). 120 Vial 3 05/08/2016 Active Comment on above: Inhale 3 mL as instr ucted every 6 hours as needed (shortnss of breath or hweezing). amLODIPine 10 mg oral tablet (20 sources) Dihydropyridine Calcium Channel Vishal Start: 07-08-2022 End: 01-03-2025 Start: 07-08-2022 End: 07-18-2024 take 1 tablet by mouth once daily Amlodipine 10 mg tablet Discontinued 10 mg PO DAILY June 27, 2024 1:54pm July 18, 2024 9:59am Start: 10-29-2020 End: 09-05-2021 Start: 10-29-2020 End: 09-05-2021 take 10 mg by mouth once daily Amlodipine Discontinued 10 MG PO DAILY October 29, 2020 1:00am September 05, 2021 3:47pm Comment on above: DAILY ascorbic acid 500 mg oral ta blet (20 sources) Vitamin C Start: 10-29-2020 End: 09-05-2021 azithromycin 250 mg oral tab let (20 sources) Macrolide Antimicrobial Start: 11-26-2023 End: 12-07-2023 Start: 09-24-2023 End: 11-17-2023 Start: 09-24-2023 End: 11-17-2023 take 2-5 tablets by mouth once daily Azithromycin 250 mg tablet Discontinued 0 PO .COMPLEX 6 September 24, 2023 1:00am November 17, 2023 7:13am take 500 mg today (day 1), then 250 mg for 4 days (days 2-5) PO Start: 10-29-2020 End: 04-01-2021 Start: 11-26-2017 End: 12-02-2017 Start: 11-26-2017 End: 12-02-2017 take 1 tablet by mouth once daily Azithromycin 250 MG tablet Discontinued 250 mg PO DAILY November 30, 2017 11:40am December 02, 2017 11:46am benzonatate 200 mg oral caps ule (20 sources) Non-narcotic Antitussive Start: 10-08-2022 End: 12-07-2023 Start: 11-26-2017 End: 12-20-2017 busPIRone hydrochloride 15 mg oral tablet (20 sources) Start: 10-29-2020 End: 09-05-2021 carvedilol 25 mg oral tablet (20 sources) alpha-Adrenergic Vishal, beta-Adrenergic Vishal Start: 08-14-2022 End: 09-01-2022 cephalexin 500 mg oral capsule (20 sources) Cephalosporin Antibacterial Start: 08-29-2017 End: 09-24-2017 cholecalciferol 0.125 mg oral capsule (20 sources) Vitamin D Start: 11-07-2018 End: 05-18-2019 Cholecalciferol (Vitamin D3) (Vitamin D3) 5,000 UNIT capsule (20 sources) Start: 09-04-2021 End: 09-05-2021 Cholecalciferol (Vitamin D3) (Vitamin D3) 5,000 UNIT capsule Discontinued 1000 U PO DAILY@1199September 04, 2021 11:05am September 05, 2021 3:51pm Start: 09-04-2021 End: 09-05-2021 Cholecalciferol (Vitamin D3) (Vitamin D3) 5,000 UNIT capsule Discontinued 1000 UNIT PO DAILY@1199September 04, 2021 10:05am September 05, 2021 2:51pm Start: 09-04-2021 End: 09-05-2021 Cholecalciferol (Vitamin D3) (Vitamin D3) 5,000 UNIT capsule Discontinued 1000 UNIT PO DAILY@1199September 04, 2021 11:05am September 05, 2021 3:51pm Start: 10-29-2020 End: 09-04-2021 take 1 capsule by mouth once daily Cholecalciferol (Vitamin D3) (Vitamin D3) 5,000 UNIT capsule Discontinued 5000 U PO DAILY@1199October 29, 2020 1:00am September 04, 2021 11:11am Start: 10-29-2020 End: 09-04-2021 take 1 capsule by mouth once daily Cholecalciferol (Vitamin D3) (Vitamin D3) 5,000 UNIT capsule Discontinued 5000 UNIT PO DAILY@1199October 29, 2020 12:00am September 04, 2021 10:11am Start: 10-29-2020 End: 09-04-2021 take 1 capsule by mouth once daily Cholecalciferol (Vitamin D3) (Vitamin D3) 5,000 UNIT capsule Discontinued 5000 UNIT PO DAILY@1199October 29, 2020 1:00am September 04, 2021 11:11am clindamycin 300 mg oral capsule (5 sources) Lincosamide Antibacterial Start: 11-12-2012 End: 04-29-2017 take 1 tablet by mouth three times daily CLEOCIN 300 MG CAPS One tablet by mouth three times daily CLINDAMYCIN HCL [id number] Kathryn Ravi dexamethasone 6 mg oral tablet (20 sources) Corticosteroid Start: 10-09-2022 End: 10-27-2022 diazePAM 5 mg oral tablet (5 sources) Benzodiazepine Start: 11-12-2012 End: 04-29-2017 take 1 tablet by mouth four times daily as needed for muscle spasms VALIUM 5 MG TABS One tablet by mouth four times daily as needed for spasm DIAZEPAM [id number] Jodee Calloway MD dicyclomine hydrochloride 10 mg oral capsule (20 sources) Anticholinergic Start: 04-28-2017 BENTYL 10 MG CAPS One cap before meals and at bedtime DICYCLOMINE HCL [id number] Kathryn Ravi Start: 12-03-2016 End: 07-18-2024 Start: 12-03-2016 End: 07-18-2024 Start: 12-03-2016 End: 09-22-2022 take 1 capsule by mouth every six hours Dicyclomine 10 mg capsule Discontinued 10 mg PO EVERY 6 HOURS April 01, 2021 3:03pm September 22, 2022 11:12am Comment on above: TAKE 1 CAPSULE BY MO [facility] BEFORE MEALS AND TAKE 1 CAPSULE AT BEDTIME docusate sodium 100 mg oral tablet (5 sources) Start: 11-12-2012 End: 04-29-2017 take 1 tablet by mouth twice daily COLACE 100 MG CAPS One tablet by mouth twice daily DOCUSATE SODIUM [id number] Jodee Calloway MD Start: 11-12-2012 [facility] COLACE 100 MG CAPS One tablet by mouth twice daily DOCUSATE SODIUM [id number] Jodee Calloway MD doxazosin 8 mg oral tablet (20 sources) alpha-Adrenergic Vishal Start: 10-27-2022 End: 06-22-2023 Start: 10-27-2022 End: 06-22-2023 take 12 mg by mouth once daily Doxazosin Discontinued 12 MG PO DAILY October 27, 2022 11:30am June 22, 2023 8:59am Start: 09-22-2022 End: 10-27-2022 Start: 09-22-2022 End: 10-12-2022 take 1 tablet by mouth once daily Doxazosin (Cardura) 4 mg tablet Discontinued 4 mg PO DAILY 60 October 12, 2022 12:09pm October 12, 2022 2:45pm doxycycline monohydrate 100 mg oral capsule (20 sources) Tetracycline-class Drug Start: 08-02-2021 End: 08-08-2021 Start: 12-01-2019 End: 07-02-2020 Start: 12-02-2017 End: 12-20-2017 0.5 ml dulaglutide 1.5 mg/ml auto-injector (20 sources) GLP-1 Receptor Agonist Start: 09-04-2021 End: 06-13-2024 Start: 09-04-2021 End: 06-13-2024 Dulaglutide (Trulicity) 0.75 mg/0.5 mL pen injector Discontinued 0.75 mg SC EVERY WEEK September 04, 2021 1:00am June 13, 2024 10:36am Start: 11-07-2018 End: 05-22-2019 Start: 03-31-2018 inject 1 dose by sub cutaneous injection once dulaglutide (TRULICITY) 0.75 mg/0.5 mL pnij Inject 1 Dose subcutaneously once each week. Per endo 03/31/2018 Active Comment on above: Inject 1 Dose subcut aneously once each week. Per endo empagliflozin 25 mg oral tab let (20 sources) Sodium-Glucose Cotransporter 2 Inhibitor Start: 09-22-2022 End: 12-07-2023 ferrous sulfate 325 mg oral tablet (12 sources) Start: 06-22-2023 End: 12-07-2023 fluticasone propionate 0.05 mg/actuat metered dose nasal spray (20 sources) Corticosteroid Start: 09-24-2017 End: 09-01-2018 Start: 09-24-2017 End: 09-01-2018 Fluticasone Propionate (Flon ase Allergy Relief) 50 mcg/actuation spray,suspension Discontinued 2 NMA INTRANASAL DAILY as needed for dry nose September 24, 2017 1:00am September 01, 2018 9:45am Start: 09-24-2017 End: 09-01-2018 Fluticasone Propionate (Flon ase Allergy Relief) 50 mcg/actuation spray,suspension Discontinued 2 SPRAY INTRANASAL DAILY September 24, 2017 1:00am September 01, 2018 9:45am Start: 04-28-2017 take 2 spray(s) nasa l route once daily FLONASE 50 MCG/ACT SUSP Two sprays in each nostril once daily FLUTICASONE PROPIONATE [id number] Kathryn Ravi Start: 02-27-2016 take 2 spray(s) by m outh once daily fluticasone (FLONASE) 50 mcg/actuation nasal spray Indications: Cough Use 2 Sprays in each nostril once daily. Rinse mouth after use. 1 Bottle 11 02/27/2016 Active Comment on above: Use 2 Sprays in each nostril once daily. Rinse mouth after use. FLUTICASONE-SALMET ALESIA (11 sources) Corticosteroid, beta2-Adrenergic Agonist Start: 04-28-2017 take 1 puff(s) by mouth twice daily ADVAIR DISKUS 250-50 MCG/DOSE AEPB inh one puff twice daily. Rinse mouth after use FLUTICASONE-SALMETEROL [id number] Kathryn Ravi Start: 11-11-2016 take 1 puff(s) by mo ut twice daily fluticasone-salmeterol (ADVAIR DISKUS) 250-50 mcg/dose dsdv Indications: Uncomplicated asthma, unspecified asthma severity Inhale 1 Puff as instructed twice daily. RINSE MOUTH AFTER USE. 3 Inhaler 3 11/11/2016 Active ADVAIR DISKUS 25 0-50 MCG/DOSE AEPB in min 1 puff FLUTICASONE-SALMETEROL [id number] Keara Ambrosio ADVAIR DISKUS 25 0-50 MCG/DOSE AEPB in min 1 puff FLUTICASONE-SALMETEROL [id number] Keara Ambrosio Comment on above: Inhale 1 Puff as ins tructed twice daily. RINSE MOUTH AFTER USE. furosemide 40 mg oral tablet (20 sources) Loop Diuretic Start: 05-31-2020 End: 07-18-2024 Start: 05-31-2020 End: 07-18-2024 Start: 05-18-2019 End: 05-31-2020 Start: 05-18-2019 End: 05-31-2020 take 2 tablets by mouth twice daily Furosemide 20 mg tablet Discontinued 40 mg PO TWICE A DAY May 22, 2019 9:01am May 31, 2020 5:03pm Start: 11-10-2018 End: 05-08-2019 Furosemide 40 MG tablet Disc ontinued 20 mg PO DAILY 0 November 10, 2018 11:11am May 08, 2019 4:44pm Start: 11-10-2018 End: 05-08-2019 take 20 mg by mouth once daily Furosemide Discontinued 20 MG PO DAILY 0 November 10, 2018 11:11am May 08, 2019 4:44pm Start: 06-29-2017 End: 05-22-2019 take 1 tablet by mouth twice daily Furosemide 20 mg tablet Discontinued 20 mg PO TWICE A DAY May 18, 2019 12:00am May 22, 2019 9:02am Start: 04-28-2017 take 1 tablet by [facility] twice daily FUROSEMIDE 20 MG TABS One tablet by mouth twice daily FUROSEMIDE [id number] Kathryn Ravi Start: 12-03-2016 End: 11-10-2018 Furosemide 40 MG tablet Disc ontinued 20 mg PO TWICE A DAY September 24, 2017 2:08pm November 10, 2018 11:11am Start: 12-03-2016 End: 11-10-2018 take 20 mg by mouth twice daily Furosemide Discontinue d 20 MG PO TWICE A DAY September 24, 2017 1:08pm November 10, 2018 10:11am Start: 07-29-2016 End: 05-18-2019 Start: 07-29-2016 End: 05-18-2019 take 1 tablet by [facility] once daily FUROSEMIDE 20 MG TABS One tablet by mouth daily FUROSEMIDE [id number] Keara Ambrosio Comment on above: Take 1 tablet by [facility] twice daily. glipiZIDE 5 mg oral tablet (20 sources) Sulfonylurea Start: 01-19-2025 End: 01-19-2025 Start: 10-26-2022 End: 06-22-2023 Comment on above: Take by mouth. 12 hr guaiFENesin 600 mg extended release oral tablet (20 sources) Start: 10-08-2022 End: 10-27-2022 take 2 tablets by mouth every twelve hours as needed, then take 1 tablet by mouth every twelve hours as needed Guaifenesin (Mucinex) 600 mg tablet extended release 12hr Discontinued 1200 mg PO Q12H as needed October 08, 2022 1:00am October 27, 2022 11:08am Start: 12-03-2017 End: 12-20-2017 Start: 12-03-2017 End: 12-20-2017 take 1 mL by mouth every four hours as needed for cough Guaifenesin 10 ML liquid Discontinued 10 mL PO EVERY 4 HOURS NEEDED as needed for Cough 300 December 03, 2017 1:00am December 20, 2017 9:52am Start: 12-03-2017 End: 12-20-2017 take 1 mL by mouth every four hours as needed Guaifenesin Discontinued 10 ML PO EVERY 4 HOURS NEEDED 300 December 03, 2017 1:00am December 20, 2017 9:52am Start: 12-02-2017 End: 12-20-2017 hydrALAZINE hydrochloride 50 mg oral tablet (20 sources) Arteriolar Vasodilator Start: 09-22-2022 End: 02-28-2025 Start: 09-22-2022 End: 10-26-2022 take 2 tablets by mouth three times daily Hydralazine 50 mg tablet Discontinued 100 mg PO THREE TIMES A DAY October 26, 2022 12:03pm October 26, 2022 4:15pm Start: 09-22-2022 End: 02-28-2025 take 1 tablet by mouth three times daily Hydralazine 50 mg tablet Active 0 .ROUTE .COMPLEX 240 February 28, 2025 12:10pm TAKE 1 TABLET BY MOUTH THREE TIMES A DAY Start: 09-01-2022 End: 09-22-2022 Start: 07-08-2022 End: 09-01-2022 take 1 tablet by mouth three times daily Hydralazine 50 mg tablet Discontinued 50 mg PO THREE TIMES A DAY 90 July 08, 2022 8:57am September 01, 2022 7:45pm Start: 06-10-2022 End: 09-01-2022 Start: 06-10-2022 End: 07-08-2022 take 1 tablet by mouth twice daily Hydralazine 50 mg tablet Discontinued 50 mg PO TWICE A DAY 60 June 10, 2022 12:00am July 08, 2022 8:59am Comment on above: THREE TIMES A DAY HYDROmorphone hydrochloride 2 mg oral tablet (5 sources) Opioid Agonist Start: 11-12-19 13 End: 04-29-20 take 1-2 tablets by mouth four times daily as needed for pain DILAUDID 2 MG TABS one to two tablets by mouth four times daily as needed for pain HYDROMORPHONE HCL [id number] Jodee Calloway MD ibuprofen 800 mg oral tablet (5 sources) Nonsteroidal Anti-inflammatory Drug End: 04-29-20 take 1 tablet by mouth every eight hours for pain IBUPROFEN 800 MG TABS 1 tab by mouth every 8 hrs for pain IBUPROFEN [id number] Keara Ambrosio irbesartan 150 mg oral tablet (20 sources) Angiotensin 2 Receptor Vishal Start: 10-29-19 End: 07-18-20 Start: 10-29-2020 End: 07-18-2024 take 1 tablet by mouth twice daily Irbesartan 150 mg tablet Discontinued 150 mg PO TWICE A DAY December 07, 2023 1:00am July 18, 2024 9:48am Start: 10-29-2020 End: 07-18-2024 Comment on above: DAILY Lactobacillus (5 sources) Start: 11-12-2012 End: 04-29-2017 take 1 tablet by mouth twice daily ACIDOPHILUS PROBIOTIC CAPS One tablet by mouth twice daily LACTOBACILLUS CAPS [id number] Kathryn Ravi Start: 11-12-2012 take 1 tablet by [facility] twice daily ACIDOPHILUS PROBIOTIC CAPS One tablet by mouth twice daily LACTOBACILLUS CAPS [id number] Jodee Calloway MD levoFLOXacin 750 mg oral tab let (20 sources) Quinolone Antimicrobial Start: 10-08-2022 End: 10-15-2022 Start: 08-08-2021 End: 09-04-2021 Start: 08-08-2021 End: 09-04-2021 take 1 tablet by mouth every twenty-four hours Levofloxacin 500 mg Tablet Discontinued 500 mg PO Q24H August 14, 2021 1:00am September 04, 2021 11:09am levothyroxine sodium 0.15 mg oral capsule (20 sources) l-Thyroxine Start: 09-22-2022 End: 12-07-2023 Comment on above: Take by mouth. 3 ml liraglutide 6 mg/ml pen injector (20 sources) GLP-1 Receptor Agonist Start: 05-18-2019 End: 09-04-2021 Start: 05-18-2019 End: 09-04-2021 Liraglutide (Victoza 2-Darian) 0.6 mg/0.1 mL (18 mg/3 mL) pen injector Discontinued 0.6 mg SC TH May 18, 2019 12:00am September 04, 2021 11:10am Start: 04-28-2017 take 0.6 mg by subcu taneous injection every week, then take 1.2 mg by subcutaneous injection every week, then take 1.8 mg by subcutaneous injection VICTOZA 18 MG/3ML SOPN 0.6mg subc after one week increase to 1.2mg and after 1 week increase to 1.8mg LIRAGLUTIDE [id number] Kathryn Ravi Start: 12-03-2016 End: 09-24-2017 lisinopril 2.5 mg oral table t (20 sources) Angiotensin Converting Enzyme Inhibitor Start: 05-18-2019 End: 04-01-2021 Start: 05-08-2019 End: 05-08-2019 Start: 05-08-2019 End: 05-18-2019 Start: 01-12-2019 End: 01-13-2019 take 1 tablet by mouth once daily Lisinopril 5 mg tablet Discontinued 5 mg PO DAILY 30 January 12, 2019 3:11pm January 13, 2019 2:54pm Start: 01-12-2019 End: 05-08-2019 Start: 01-12-2019 End: 05-08-2019 take 2 tablets by mouth twice daily Lisinopril 5 mg tablet Discontinued 10 mg PO TWICE A DAY 60 May 08, 2019 4:42pm May 08, 2019 5:04pm Start: 01-12-2019 End: 05-08-2019 take 1 tablet by mouth twice daily Lisinopril 5 mg tablet Discontinued 5 mg PO TWICE A DAY 60 January 13, 2019 3:28pm May 08, 2019 4:44pm Start: 11-18-2018 End: 01-12-2019 Start: 11-15-2018 End: 11-18-2018 take 2.5 mg by mouth twice daily Lisinopril 5 mg tablet Discontinued 2.5 mg PO TWICE A DAY November 15, 2018 4:02pm November 18, 2018 12:02pm Start: 11-15-2018 End: 11-18-2018 take 2.5 mg by mouth twice daily Lisinopril Discontinued 2.5 MG PO TWICE A DAY November 15, 2018 4:02pm November 18, 2018 12:02pm Start: 11-13-2018 End: 11-18-2018 medroxyPROGESTERone acetate 2.5 mg oral tablet (20 sources) Progestin Start: 12-03-2016 End: 09-24-2017 Start: 12-03-2016 End: 09-24-2017 Medroxyprogesterone 2.5 MG t ablet Discontinued 10 mg PO December 03, 2016 1:00am September 24, 2017 2:15pm Start: 12-03-2016 End: 09-24-2017 Medroxyprogesterone Disconti nued 10 MG PO December 03, 2016 1:00am September 24, 2017 2:15pm Start: 06-29-2016 End: 03-20-2019 Comment on above: Take 1 tablet daily for 10 days every 8 weeks megestrol acetate 40 mg oral tablet (20 sources) Progestin Start: 01-19-2023 End: 06-22-2023 Start: 11-27-2022 End: 01-19-2023 Start: 10-20-2022 End: 10-26-2022 Start: 10-20-2022 End: 10-26-2022 take 1 tablet by mouth once daily Megestrol 40 mg tablet Discontinued 40 mg PO DAILY October 26, 2022 2:13pm October 26, 2022 3:29pm Comment on above: .COMPLEX metFORMIN hydrochloride 500 mg oral tablet (20 sources) Biguanide Start: 03-31-2019 End: 09-04-2021 Start: 03-31-2019 End: 05-18-2019 take 1000 mg by mouth twice daily Metformin Discontinued 1000 MG PO TWICE A DAY March 31, 2019 10:22am May 18, 2019 3:10pm Start: 11-07-2018 End: 09-22-2022 Start: 11-07-2018 End: 09-22-2022 Start: 11-07-2018 End: 03-31-2019 take 1 tablet by mouth once daily Metformin 500 MG tablet Discontinued 500 mg PO DAILY November 07, 2018 1:00am March 31, 2019 10:24am Start: 04-28-2017 METFORMIN HCL 1000 MG TABS One tab twice daily with meals METFORMIN HCL [id number] Kathryn Cota Trav Start: 03-25-2016 End: 04-11-2018 Comment on above: Take 1 tablet by [facility] twice daily before meals. metOLazone 5 mg oral tablet (20 sources) Thiazide-like Diuretic Start: 12-03-2016 End: 11-10-2018 Comment on above: Take 1 tablet by lynne th once each week. 24 hr metoprolol succinate 1 00 mg extended release oral tablet (20 sources) beta-Adrenergic Vishal Start: 09-03-2022 End: 01-19-2025 Start: 09-04-2021 End: 09-05-2021 take 2 tablets by mouth twice daily Metoprolol Succinate 100 mg tablet extended release 24 hr Discontinued 50 mg PO TWICE A DAY September 04, 2021 11:06am September 05, 2021 3:55pm Start: 09-04-2021 End: 09-05-2021 take 50 mg by mouth twice daily Metoprolol Succinate Discontinued 50 MG PO TWICE A DAY September 04, 2021 11:06am September 05, 2021 3:55pm Start: 04-01-2021 End: 08-14-2022 Start: 05-18-2019 End: 04-01-2021 Start: 05-18-2019 End: 04-01-2021 Metoprolol Succinate 50 mg t ablet extended release 24 hr Discontinued 100 mg PO DAILY April 01, 2021 3:28pm April 01, 2021 3:29pm Start: 05-18-2019 End: 04-01-2021 take 1 tablet by mouth once daily Metoprolol Succinate 50 mg tablet extended release 24 hr Discontinued 50 mg PO DAILY May 18, 2019 12:00am April 01, 2021 3:28pm Start: 02-10-2014 End: 11-10-2018 Comment on above: Take 0.5 tablets by mouth once daily. metroNIDAZOLE 500 mg oral tablet (20 sources) Nitroimidazole Antimicrobial Start: 02-06-2025 End: 02-13-2025 Start: 10-28-2022 End: 11-04-2022 montelukast 10 mg oral table t (20 sources) Leukotriene Receptor Antagonist Start: 02-03-2024 End: 12-13-2024 Start: 04-21-2016 End: 12-07-2023 Comment on above: Take 1 tablet by lynne th daily at bedtime. MULTIPLE VITAMINS-MINERALS (2 sources) Start: 04-28-2017 THERAGRAN-M TABS One tab daily MULTIPLE VITAMINS-MINERALS [id number] Kathrynlane Ravi naproxen 500 mg oral tablet (20 sources) Nonsteroidal Anti-inflammatory Drug Start: 03-29-2017 End: 04-11-2018 Comment on above: Take 500 mg by mouth twice daily with meals. nitrofurantoin, macrocrystals 25 mg / nitrofurantoin, monohydrate 75 mg oral capsule (14 sources) Nitrofuran Antibacterial Start: 02-19-2023 End: 02-26-2023 norethindrone acetate 5 mg oral tablet (20 sources) Start: 10-26-2022 End: 01-19-2023 Start: 10-26-2022 End: 11-18-2022 take 1 tablet by mouth once daily Norethindrone Acetate (Aygestin) 5 mg tablet Discontinued 5 mg PO DAILY October 26, 2022 1:00am November 18, 2022 11:54am omeprazole 20 mg delayed rel ease oral capsule (20 sources) Proton Pump Inhibitor Start: 02-10-2014 End: 09-24-2017 take 1 tablet by mouth once tanner y PRILOSEC 20 MG CPDR One tablet by mouth daily OMEPRAZOLE [id number] Keara Ambrosio Comment on above: Take 1 capsule by [facility] once daily. ondansetron 4 mg disintegrat ing oral tablet (20 sources) Serotonin-3 Receptor Antagonist Start: 10-09-2023 End: 07-18-2024 Start: 11-28-2019 End: 03-25-2020 Start: 11-28-2019 End: 03-25-2020 take 1 tablet by mouth every eight hours as needed for nausea Ondansetron 4 MG tablet Discontinued 4 mg PO EVERY 8 HOURS NEEDED as needed for Nausea November 28, 2019 1:00am March 25, 2020 10:42am Start: 04-28-2017 ZOFRAN ODT 4 M G TBDP One tab every 6 hrs as needed for nausea/vomiting ONDANSETRON [id number] Kathrynstan Ravi Start: 04-30-2016 take 1 tablet by lynne every six hours as needed ondansetron orally disintegrating (ZOFRAN ODT) 4 mg disintegrating tablet Take 1 tablet by mouth every 6 hours as needed for Nausea/Vomiting. 20 tablet 0 04/30/2016 Active Comment on above: Take 1 tablet by lynne every 6 hours as needed for Nausea/Vomiting. oseltamivir 75 mg oral capsule (12 sources) Neuraminidase Inhibitor Start: 11-17-2023 End: 12-07-2023 Start: 11-17-2023 End: 12-07-2023 take 1 capsule by mouth twice daily Oseltamivir 75 mg capsule Discontinued 75 mg PO TWICE A DAY November 17, 2023 1:00am December 07, 2023 9:59am Comment on above: Take 1 capsule by [facility] every 12 hours. POLYETHYLENE GLYCOL 3350 (5 sources) Osmotic Laxative End: 04-29-2017 take 1 dose by mouth once daily POLYETHYLENE GLYCOL 3350 PACK 1 packet by mouth once daily POLYETHYLENE GLYCOL 3350 [id number] Kathryn Ravi take 1 dose by mouth once daily POLYETHYLENE GLYCOL 3350 PACK 1 packet by mouth once daily POLYETHYLENE GLYCOL 3350 [id number] Keara Ambrosio predniSONE 20 mg oral tablet (20 sources) Start: 02-03-2024 End: 06-13-2024 Start: 02-03-2024 take 60 mg by mouth once daily at mealtime Prednisone Active 60 MG PO daily February 03, 2024 12:00am administer with food or milk Start: 11-17-2023 End: 12-07-2023 Start: 11-17-2023 End: 12-07-2023 take 1 tablet by mouth once daily Prednisone 20 mg tablet Discontinued 20 mg PO DAILY November 17, 2023 1:00am December 07, 2023 10:00am Start: 08-08-2021 End: 09-04-2021 Start: 08-08-2021 End: 09-04-2021 take 60 mg by mouth once daily at mealtime Prednisone Discontinued 60 MG PO daily August 14, 2021 9:51pm September 04, 2021 10:10am administer with food or milk Start: 08-02-2021 End: 08-08-2021 Start: 01-22-2020 End: 07-02-2020 take 2 tablets by mouth once daily at mealtime Prednisone 20 MG tablet Discontinued 40 mg PO DAILY January 22, 2020 12:00am July 02, 2020 9:28am With food start 01/22 Start: 01-22-2020 End: 07-02-2020 take 40 mg by mouth once daily at mealtime Prednisone Discontinued 40 MG PO DAILY January 22, 2020 12:00am July 02, 2020 9:28am With food start 01/22 Start: 11-28-2019 End: 07-02-2020 Start: 11-28-2019 End: 03-25-2020 take 1 tablet by mouth twice daily at mealtime Prednisone 20 MG tablet Discontinued 20 mg PO TWICE A DAY November 28, 2019 1:00am March 25, 2020 10:42am With food Start: 12-02-2017 End: 02-23-2018 Start: 12-02-2017 End: 02-23-2018 Prednisone 10 MG tablet Discontinued 10 mg PO DIRECTED December 02, 2017 1:00am February 23, 2018 10:02am TAKE 4 TABLETS BY MOUTH DAILY WITH FOOD FOR 3 DAYS, THEN TAKE 3 TABLETS BY MOUTH DAILY WITH FOOD FOR 3 DAYS, THEN TAKE 2 TABLETS BY MOUTH DAILY WITH FOOD FOR 3 DAYS, THEN TAKE 1 TABLETS BY MOUTH DAILY WITH FOOD FOR 3 DAYS, THEN STOP Start: 11-30-2017 End: 12-02-2017 take 2 tablets by mouth twice daily at mealtime Prednisone (Deltasone) 20 MG tablet Discontinued 40 mg PO TWICE A DAY November 30, 2017 11:40am December 02, 2017 11:45am With food Start: 11-28-2017 End: 12-02-2017 Start: 11-28-2017 End: 11-30-2017 take 2 tablets by mouth once daily at mealtime Prednisone 20 MG tablet Discontinued 40 mg PO DAILY November 28, 2017 1:00am November 30, 2017 11:41am With food Start: 11-28-2017 End: 11-30-2017 take 40 mg by mouth once daily at mealtime Prednisone Discontinued 40 MG PO DAILY November 28, 2017 1:00am November 30, 2017 11:41am With food Start: 12-07-2016 End: 09-24-2017 Start: 12-07-2016 End: 09-24-2017 Prednisone 10 MG tablet Discontinued 10 mg PO DAILY December 07, 2016 1:00am September 24, 2017 2:26pm 4 tabs daily for 3 days then 2 tabs daily for 3 days then 1 tab daily for 3 days and discontinue Comment on above: Take 1 tablet by lynne th as directed. promethazine hydrochloride 2 5 mg oral tablet (20 sources) Phenothiazine Start: 06-24-2019 End: 03-25-2020 Start: 11-30-2017 End: 04-11-2018 Start: 11-30-2017 End: 04-11-2018 take 1 tablet by mouth every eight hours as needed for nausea Promethazine 25 MG tablet Discontinued 25 mg PO EVERY 8 HOURS NEEDED as needed for Nausea November 30, 2017 1:00am April 11, 2018 9:32am Start: 11-12-2012 End: 04-29-2017 take 1 tablet by mouth four times daily as needed for nausea PROMETHAZINE HCL 25 MG TABS One tablet by mouth four times daily as needed for nausea PROMETHAZINE HCL [id number] Jodee Calloway MD End: 04-29-2017 PROMETHAZINE HCL 25 MG TABS 1 tab every 8 hrs PROMETHAZINE HCL [id number] Keara Ambrosio sertraline 100 mg oral tablet (20 sources) Serotonin Reuptake Inhibitor Start: 10-02-2017 End: 09-05-2021 Comment on above: Take 1 tablet by lynne once daily. skin protectants, misc. pads (20 sources) Start: 12-13-2017 End: 12-14-2017 skin protectants, misc. pads Discontinued 0 TOPICAL .COMPLEX December 12, 2017 11:00pm December 14, 2017 3:31pm Depends pads as needed Start: 12-13-2017 End: 12-14-2017 skin protectants, misc. pads Discontinued 0 TOPICAL .COMPLEX December 13, 2017 12:00am December 14, 2017 4:31pm Depends pads as needed Skin Protectants, Misc. pads, medicated (4 sources) Start: 12-13-2017 End: 12-14-2017 Skin Protectants, Misc. pads, medicated Discontinued 0 TOPICAL .COMPLEX December 13, 2017 12:00am December 14, 2017 4:31pm Depends pads as needed 24 hr divalproex sodium 500 mg extended release oral tablet (5 sources) Mood Stabilizer, Anti-epileptic Agent End: 04-29-2017 take 1 tablet by mouth once daily DIVALPROEX SODIUM ER 500 MG [id number] One tablet by mouth daily DIVALPROEX SODIUM [id number] Kathryn Ravi verapamil hydrochloride 240 mg extended release oral tablet (20 sources) Calcium Channel Vishal Start: 11-10-2021 End: 07-08-2022 Start: 09-05-2021 End: 11-10-2021 Start: 02-03-2018 take 1 tablet by lynne th twice daily verapamil SR (CALAN SR, ISOPTIN SR) 240 mg CR tablet Indications: Paroxysmal supraventricular tachycardia (HCC) TAKE 1 TABLET BY MOUTH TWICE A DAY 56 tablet 02/03/2018 Active Start: 11-30-2017 End: 11-10-2018 take 1 tablet by lynne th twice daily VERAPAMIL HCL ER 240 MG CR-TABS One tablet by mouth twice daily VERAPAMIL HCL [id number] Keara Ambrosio take 1 tablet by lynne th twice daily VERAPAMIL HCL ER 240 MG CR-TABS One tablet by mouth twice daily VERAPAMIL HCL [id number] Keara Ambrosio Comment on above: TAKE 1 TABLET BY LYNNE TH TWICE A DAY Problems Active Problems Problem Classification Problem Date Documented Date Episodic/Chronic Abdominal pain (20 sources) Suprapubic pain; Translations: [Pelvic and perineal pain] Onset: 2 Resolved: 7 03-20-2019 Episodic Acquired foot deformities (1 source) Acquired hallux valgus; Translations: [Hallux valgus (acquired), unspecified foot] 06-20-2024 Chronic Adjustment disorders (20 sources) Adjustment disorder with depressed mood; Translations: [Adjustment disorder with depressed mood] Onset: 5 Resolved: 7 03-20-2019 Chronic Allergic reactions (20 sources) Allergic disorder of skin; Translations: [Allergic contact dermatitis, unspecified cause] Onset: 5 01-23-2020 Episodic Asthma (20 sources) Severe persistent asthma with (acute) exacerbation; Translations: [Unspecified asthma with (acute) exacerbation] Onset: 5 Chronic Cardiac dysrhythmias (20 sources) Paroxysmal supraventricular tachycardia; Translations: [Supraventricular tachycardia] Onset: 8 Chronic Cardiac dysrhythmias (20 sources) Bradycardia; Translations: [Bradycardia, unspecified] 08-23-2021 Episodic Chronic obstructive pulmonary disease and bronchiectasis (20 sources) Chronic obstructive lung disease; Translations: [Chronic obstructive pulmonary disease, unspecified] 11-27-2019 Chronic Comment on above: INHALERS/FOLLOWS DR LENY Conditions associated with dizziness or vertigo (20 sources) Dizziness; Translations: [Dizziness and giddiness] 05-10-2019 Episodic Congestive heart failure; nonhypertensive (20 sources) Congestive heart failure; Translations: [Heart failure, unspecified] Chronic Developmental disorders (20 sources) Mild intellectual disability; Translations: [Mild intellectual disabilities] Onset: 5 03-20-2019 Chronic Diabetes mellitus with complications (8 sources) Autonomic neuropathy due to type 2 diabetes mellitus; Translations: [Type 2 diabetes mellitus with diabetic autonomic (poly)neuropathy] Onset: 7 03-25-2017 Chronic Diabetes mellitus without complication (20 sources) Type 2 diabetes mellitus without complications; Translations: [Type 2 diabetes mellitus] Onset: 6 09-11-2022 Chronic Diabetes mellitus without complication (20 sources) Hyperglycemia 03-20-2019 Episodic Disorders of lipid metabolism (20 sources) Hyperlipidemia; Translations: [Hyperlipidemia, unspecified] Onset: 7 Chronic E Codes: Fall (14 sources) Accidental fall ; Translations: [Unspecified fall, initial encounter] 05-05-2023 Episodic Esophageal disorders (8 sources) Gastroesophageal reflux disease; Translations: [Gastro-esophageal reflux disease without esophagitis] Onset: 6 Resolved: 7 02-23-2008 Chronic Essential hypertension (20 sources) Essential (primary) hypertension; Translations: [Essential hypertension] Onset: 5 Chronic Fluid and electrolyte disorders (11 sources) Acidosis; Translations: [Dehydration] Onset: 6 10-09-2023 Episodic Fracture of upper limb (20 sources) Closed fracture of middle phalanx of little finger; Translations: [Displaced fracture of middle phalanx of right little finger, initial encounter for closed fracture] 05-05-2023 Episodic Genitourinary symptoms and ill-defined conditions (6 sources) Female stress incontinence; Translations: [Stress incontinence (female) (male)] Onset: 6 01-20-2016 Chronic Headache; including migraine (6 sources) Migraine without aura; Translations: [Migraine without aura, not intractable, without status migrainosus] Onset: 9 09-30-2015 Chronic Headache; including migraine (20 sources) Headache; Translations: [Headache] 05-10-2019 Episodic Hypertension with complications and secondary hypertension (20 sources) Hypertensive urgency ; Translations: [Hypertensive urgency] 05-19-2019 Chronic Immunizations and screening for infectious disease (14 sources) Contact with and (suspected) exposure to infections with a predominantly sexual mode of transmission; Translations: [Contact with or exposure to venereal diseases] Onset: 5 10-26-2022 Episodic Influenza (9 sources) Influenza due to Influenza A virus; Translations: [Influenza due to other identified influenza virus with other respiratory manifestations] 11-17-2023 Episodic Malaise and fatigue (20 sources) Fatigue; Translations: [Other fatigue] Episodic Menstrual disorders (20 sources) Menometrorrhagia; Translations: [Excessive and frequent menstruation with irregular cycle] Onset: 5 11-09-2022 Chronic Comment on above: EMB nl. failed ayges tin. plan d and c hysteroscopy quita ablation. s/p tubal ligation. Nausea and vomiting (20 sources) Nausea, vomiting and diarrhea; Translations: [Nausea with vomiting, unspecified] 06-25-2019 Episodic Other aftercare (2 sources) Encounter for follow-up examination after completed treatment for conditions other than malignant neoplasm; Translations: [Follow-up examination, following surgery, unspecified] 02-19-2023 Episodic Other congenital anomalies (20 sources) Congenital diaphragmatic hernia; Translations: [Congenital diaphragmatic hernia] 03-14-2020 Chronic Other connective tissue disease (6 sources) Cramp in lower limb; Translations: [Sleep related leg cramps] Onset: 6 10-14-2015 Chronic Other connective tissue disease (2 sources) Pain in finger of right hand; Translations: [Pain in right finger(s)] 05-26-2023 Episodic Other diseases of kidney and ureters (20 sources) Renal mass; Translations: [Other specified disorders of kidney and ureter] Onset: 6 03-20-2019 Chronic Other female genital disorders (20 sources) Abnormal uterine bleeding; Translations: [Abnormal uterine and vaginal bleeding, unspecified] 10-20-2022 Chronic Other injuries and conditions due to external causes (14 sources) Closed injury of head; Translations: [Unspecified injury of head, initial encounter] 05-05-2023 Episodic Other liver diseases (1 source) Fatty (change of) liver, not elsewhere classified; Translations: [Fatty (change of) liver, not elsewhere classified] Onset: 6 Chronic Other liver diseases (20 sources) Steatosis of liver; Translations: [Fatty (change of) liver, not elsewhere classified] Onset: 6 03-20-2019 Chronic Other lower respiratory disease (20 sources) Restrictive lung disease; Translations: [Other disorders of lung] Onset: 7 11-27-2019 Episodic Other lower respiratory disease (20 sources) Acute lower respiratory tract infection; Translations: [Unspecified acute lower respiratory infection] 08-10-2021 Episodic Other lower respiratory disease (20 sources) Other disorders of lung; Translations: [Other diseases of lung, not elsewhere classified] Onset: 5 Episodic Other lower respiratory disease (9 sources) Shortness of breath; Translations: [Shortness of breath] 10-08-2022 Episodic Other lower respiratory disease (1 source) Dyspnea; Translations: [Shortness of breath] 11-26-2023 Episodic Other nutritional; endocrine; and metabolic disorders (1 source) Morbid (severe) obesity due to excess calories; Translations: [Morbid (severe) obesity due to excess calories] Onset: 6 Chronic Other nutritional; endocrine; and metabolic disorders (20 sources) Severe obesity; Translations: [Morbid (severe) obesity due to excess calories] 03-14-2020 Chronic Other nutritional; endocrine; and metabolic disorders (20 sources) Morbid obesity; Translations: [Morbid (severe) obesity due to excess calories] Onset: 6 03-14-2020 Chronic Other nutritional; endocrine; and metabolic disorders (20 sources) Body mass index 40+ - severely obese; Translations: [Body mass index (BMI) 40.0-44.9, adult] 09-11-2022 Chronic Other nutritional; endocrine; and metabolic disorders (20 sources) Body mass index (BMI) 40.0-44.9, adult; Translations: [Body Mass Index 40.0-44.9, adult] Chronic Other screening for suspected conditions (not mental disorders or infectious disease) (20 sources) Electrocardiogram abnormal; Translations: [Abnormal electrocardiogram [ECG] [EKG]] Onset: 6 Resolved: 6 03-20-2019 Episodic Other upper respiratory disease (6 sources) Allergic rhinitis; Translations: [Allergic rhinitis, unspecified] Onset: 1 06-25-2011 Chronic Other upper respiratory infections (20 sources) Viral upper respiratory tract infection; Translations: [Acute upper respiratory infection, unspecified] 03-20-2019 Episodic Pneumonia (except that caused by tuberculosis or sexually transmitted disease) (20 sources) Community acquired pneumonia; Translations: [Pneumonia, unspecified organism] 03-20-2019 Episodic Residual codes; unclassified (20 sources) Obstructive sleep apnea syndrome; Translations: [Obstructive sleep apnea (adult) (pediatric)] Onset: 4 03-20-2019 Chronic Comment on above: on trilogy Residual codes; unclassified (1 source) Pain; Translations: [Pain, unspecified] 06-20-2024 Episodic Respiratory failure; insufficiency; arrest (20 sources) Chronic respiratory failure with hypoxia; Translations: [Acute and chronic respiratory failure with hypoxia] Onset: 6 Chronic Skin and subcutaneous tissue infections (20 sources) Abscess of skin and/or subcutaneous tissue; Translations: [Cutaneous abscess, unspecified] 09-19-2022 Episodic Superficial injury; contusion (14 sources) Contusion of knee; Translations: [Contusion of right knee, initial encounter] 05-05-2023 Episodic Syncope (2 sources) Near syncope; Translations: [Syncope and collapse] 03-23-2025 Episodic Thyroid disorders (20 sources) Non-toxic uninodular goiter; Translations: [Nontoxic single thyroid nodule] Onset: 6 03-20-2019 Chronic Unclassified (12 sources) Obstructive sleep apnea (adult) (pediatric); Translations: [Obstructive sleep apnea (adult)(pediatric)] Onset: 6 Chronic Unclassified (6 sources) Type 2 diabetes mellitus without complication; Translations: [Uncontrolled type 2 diabetes mellitus without complication, without long-term current use of insulin] Onset: 6 08-18-2016 Unclassified (8 sources) Primary hypertension; Translations: [I10 - Essential (primary) hypertension] Urinary tract infections (2 sources) Urinary tract infectious disease; Translations: [Urinary tract infection, site not specified] 03-26-2025 Episodic Varicose veins of lower extremity (20 sources) Varicose vein of leg with phlebitis; Translations: [Varicose veins of right lower extremity with inflammation] Onset: 03-20-2019 Episodic Past or Other Problems Problem Classification Problem Date Documented Da te Episodic/Chronic Abdominal hernia (3 sources) Incisional hernia without obstruction or gangrene; Translations: [Incisional hernia without obstruction or gangrene] Onset: 10-18-2012 10-18-2012 Episodic Acute and unspecified renal failure (1 source) Acute kidney failure, unspecified; Translations: [Acute kidney failure, unspecified] Onset: 11-01-2024 Episodic Acute bronchitis (1 source) Acute bronchitis, unspecified; Translations: [Acute bronchitis, unspecified] Onset: 03-23-2024 Episodic Endometriosis (5 sources) Endometriosis, unspecified; Translations: [Endometriosis (clinical)] Onset: 10-18-2012 Resolved: 12-28-2012 10-18-2012 Chronic Epilepsy; convulsions (2 sources) Generalized idiopathic epilepsy and epileptic syndromes, not intractable, without status epilepticus; Translations: [Generalized convulsive epilepsy, without mention of intractable epilepsy] Onset: 06-29-2005 Resolved: 12-22-2006 04-13-2024 Chronic Genitourinary symptoms and ill-defined conditions (10 sources) Frequency of micturition; Translations: [Urinary frequency] Onset: 06-30-2005 Resolved: 06-01-2013 02-19-2023 Episodic Nonspecific chest pain (1 source) Chest pain, unspecified; Translations: [Chest pain, unspecified] Onset: 04-24-2016 Episodic Open wounds of head; neck; and trunk (7 sources) Late effect of open wound of head, neck, and trunk; Translations: [Open wound of anterior abdominal wall ] Onset: 09-18-2012 Resolved: 12-28-2012 10-18-2012 Episodic Other gastrointestinal disorders (4 sources) Constipation; Translations: [Constipation, unspecified] Onset: 01-17-2015 Resolved: 03-16-2017 06-01-2013 Episodic Other inflammatory condition of skin (2 sources) Psoriasis; Translations: [Other psoriasis] Onset: 08-04-2010 Resolved: 03-16-2017 03-16-2017 Chronic Other inflammatory condition of skin (2 sources) Seborrheic dermatitis; Translations: [Other seborrheic dermatitis] Onset: 08-04-2010 Resolved: 03-16-2017 03-16-2017 Episodic Other liver diseases (2 sources) Enzyme level - finding; Translations: [Transaminitis] Onset: 01-21-2016 Resolved: 03-16-2017 03-16-2017 Episodic Other lower respiratory disease (6 sources) Hypoxemia; Translations: [Hypoxemia] Onset: 11-15-2015 03-16-2017 Episodic Other nutritional; endocrine; and metabolic disorders (2 sources) Metabolic syndrome X; Translations: [Dysmetabolic syndrome] Onset: 06-01-2013 Resolved: 05-21-2016 05-21-2016 Chronic Other skin disorders (2 sources) Keratosis pilaris; Translations: [Other specified epidermal thickening] Onset: 08-04-2010 Resolved: 12-28-2012 12-28-2012 Episodic Other skin disorders (2 sources) Asteatosis cutis; Translations: [Xerosis cutis] Onset: 08-04-2010 Resolved: 12-28-2012 12-28-2012 Episodic Residual codes; unclassified (6 sources) Edema; Translations: [Edema, unspecified] Onset: 10-26-2011 10-26-2011 Episodic Residual codes; unclassified (6 sources) Edema of lower leg ; Translations: [Localized edema] Onset: 03-16-2016 03-16-2016 Episodic Residual codes; unclassified (1 source) Pain, unspecified; Translations: [Pain] Onset: 06-20-2024 Episodic Spondylosis; intervertebral disc disorders; other back problems (2 sources) Neck pain; Translations: [Cervicalgia] Onset: 08-16-2014 Resolved: 08-18-2016 08-18-2016 Episodic Results Test Name Value Interpretation Reference Range Facility Absolute lymphocyte countOrd ered By: Miguel Angel Parikh on 03-26-2025 Lymphocytes Auto (Unsp spec) [#/Vol] 2.16 10*3/uL 0.83-4.51 [facility] Amphetamine detection with 1 000 ng/mL as cutoffOrdered By: Miguel Angel Parikh on 03-26-2025 Amphetamines Screen method >1000 ng/mL Ql (U) Negative < 200 ng/mL [facility] Anion gap in Serum or Plasma Ordered By: Miguel Angel Parikh on 03-26-2025 Anion gap [Moles/Vol] 14 mmol/L 5-15 [facility] Automated lymphocyte count a s percentage of total leukocytesOrdered By: Miguel Angel Parikh on 03-26-2025 Lymphocytes/100 WBC Auto (Unsp spec) 18.6 % Low 19-41 [facility] BUN/creatinine ratioOrdered By: Miguel Angel Parikh on 03-26-2025 Urea nitrogen/Creatinine [Mass ratio] 14.2 mg/mg 10-20 [facility] Basophil percentageOrdered B y: Miguel Angel Parikh on 03-26-2025 Basophils/100 WBC (Bld) 0.3 % 0-1 [facility] Bilirubin Test strip Ql (U)O rdered By: Miguel Angel Parikh on 03-26-2025 Bilirubin Ql (U) Negative Negative [facility] Bilirubin, totalOrdered By: Miguel Angel Parikh on 03-26-2025 Bilirubin [Mass/Vol] 0.64 mg/dL 0.00-1.30 [facility] Calcium oxalate crystals det ection in urine sediment by light microscopyOrdered By: Miguel Angel Parikh on 03-26-2025 Calcium oxalate crystals LM Ql (Urine sed) 1+ /hpf [facility] Carbon dioxide, total [Moles /volume] in Central venous bloodOrdered By: Miguel Angel Parikh on 03-26-2025 CO2 [Moles/Vol] 22.2 mmol/L 21.0-32.0 [facility] Chloride assayOrdered By: Dylan Parikh on 03-26-2025 Chloride [Moles/Vol] 101 mmol/L 98-108 [facility] Eosinophil percentageOrdered By: Miguel Angel Parikh on 03-26-2025 Eosinophils/100 WBC (Bld) 0.9 % 0-5 [facility] Erythrocyte distribution wid th ratioOrdered By: Miguel Angel Parikh on 03-26-2025 Erythrocyte distribution width (RBC) [Ratio] 13.2 % 11.6-14.6 [facility] Erythrocyte distribution wid th standard deviationOrdered By: Miguel Angel Parikh on 03-26-2025 Erythrocyte distribution width (RBC) [Ratio] 39.8 fl 35.1-43.9 [facility] Glomerular filtration rate ( GFR) estimation/1.73 sq m using serum, plasma, or whole bOrdered By: Miguel Angel Parikh on 06-23-2025 GFR/1.73 sq M.predicted among non-blacks MDRD (S/P/Bld) [Vol rate/Area] 65 mL/min/{1.73_m2} >60 [facility] Hematocrit Auto (Bld) [Volum e fraction]Ordered By: Miguel Angel Parikh on 03-26-2025 Hematocrit (Bld) [Volume fraction] 40.7 % 37-47 [facility] Hemoglobin measurementOrdere d By: Miguel Angel Parikh on 03-26-2025 Hemoglobin (Bld) [Mass/Vol] 13.8 g/dL 12.0-15.0 [facility] Hyaline casts LM.LPF (Urine sed) [#/Area]Ordered By: Miguel Angel Parikh on 03-26-2025 Hyaline casts (Urine sed) [#/Area] 5 /[LPF] 0-5 [facility] Immature granulocytes/100 WB C Auto (Bld)Ordered By: Miguel Angel Parikh on 03-26-2025 Immature granulocytes/100 WBC (Bld) 0.300 % 0.0-0.9 [facility] Ketones Test strip Ql (U)Ord ered By: Miguel Angel Parikh on 03-26-2025 Ketones Ql (U) 5 mg/dl High Negative [facility] MCV (mean corpuscular volume ) determinationOrdered By: Miguel Angel Parikh on 03-26-2025 MCV (RBC) [Entitic vol] 83.2 fL 81-99 [facility] Mean corpuscular hemoglobin (MCH) determinationOrdered By: Miguel Angel Parikh on 03-26-2025 MCH (RBC) [Entitic mass] 28.2 pg 27.0-32.0 [facility] Monocyte percentageOrdered B y: Miguel Angel Parikh on 03-26-2025 Monocytes/100 WBC (Bld) 6.7 % 0-10 [facility] Mucus LM Ql (Urine sed)Order ed By: Miguel Angel Parikh on 03-26-2025 Mucus Ql (Urine sed) 1+ /hpf [facility] Neutrophil percentageOrdered By: Miguel Angel Parikh on 03-26-2025 Neutrophils/100 WBC (Bld) 73.2 % High 47-70 [facility] Nitrite Test strip Ql (U)Ord ered By: Miguel Angel Parikh on 03-26-2025 Nitrite Ql (U) Negative Negative [facility] No Panel InformationOrdered By: Miguel Angel Parikh on 03-26-2025 Negative < 200 ng/mL [facility] 44 U/L High <32 [facility] Platelet countOrdered By: Dylan Parikh on 03-26-2025 Platelets (Bld) [#/Vol] 260 10*3/uL 150-450 [facility] Potassium measurement (mass/ volume)Ordered By: Miguel Angel Parikh on 03-26-2025 Potassium (Unsp spec) [Mass/Vol] 4.5 mmol/L 3.3-5.1 [facility] Protein Test strip Ql (U)Ord ered By: Miguel Angel Parikh on 03-26-2025 Protein Ql (U) 100 mg/dl High Negative [facility] RBC Auto (Bld) [#/Vol]Ordere d By: Miguel Angel Parikh on 03-26-2025 RBC (Bld) [#/Vol] 4.89 10*6/uL 4.2-5.4 [facility] Screening urine fentanyl katharine surementOrdered By: Miguel Angel Parikh on 03-26-2025 fentaNYL Screen Ql (U) Negative [facility] Serum beta-hCG test, qualita tiveOrdered By: Miguel Angel Parikh on 03-26-2025 Beta HCG ( test) Ql Negative [facility] Serum creatinine measurement (mass/volume)Ordered By: Miguel Angel Parikh on 03-26-2025 Creatinine [Mass/Vol] 1.09 mg/dL 0.70-1.20 [facility] Serum globulin measurementOr dered By: Miguel Angel Parikh on 03-26-2025 Globulin (S) [Mass/Vol] 3.2 g/dL 2.2-4.2 [facility] Serum glucose measurement (m ass/volume)Ordered By: Miguel Angel Parikh on 03-26-2025 Glucose [Mass/Vol] 245 mg/dL High 70-99 [facility] Serum or plasma alanine giang otransferase (ALT) measurementOrdered By: Miguel Angel Parikh on 03-26-2025 ALT [Catalytic activity/Vol] 52 U/L High <35 [facility] Serum or plasma albumin rashi urement (mass/volume)Ordered By: Miguel Angel Parikh on 03-26-2025 Albumin [Mass/Vol] 3.8 g/dL 3.5-5.0 [facility] Serum or plasma albumin/glob ulin mass ratioOrdered By: Miguel Angel Parikh on 03-26-2025 Albumin/Globulin [Mass ratio] 1.2 {ratio} 0.9-2.4 [facility] Serum or plasma alkaline oksana sphatase measurementOrdered By: Miguel Angel Parikh on 03-26-2025 ALP [Catalytic activity/Vol] 84 U/L 35-104 [facility] Serum or plasma calcium rashi urement (mass/volume)Ordered By: Miguel Angel Parikh on 03-26-2025 Calcium [Mass/Vol] 8.9 mg/dL 7.6-11.0 [facility] Serum or plasma ethanol rashi urement (mass/volume)Ordered By: Miguel Angel Parikh on 03-26-2025 Ethanol [Mass/Vol] mg/dL <10.1 [facility] Serum or plasma urea nitroge n measurement (mass/volume)Ordered By: Miguel Angel Parikh on 03-26-2025 Urea nitrogen [Mass/Vol] 16 mg/dL 4-19 [facility] Sodium levelOrdered By: Miguel Angel Parikh on 03-26-2025 Sodium [Moles/Vol] 137 mmol/L 133-145 [facility] Squamous epithelial cells de tection in urine sediment by light microscopyOrdered By: Miguel Angel Parikh on 03-26-2025 Epithelial cells.squamous LM Ql (Urine sed) 5-10 SEEN /hpf 5-10 [facility] Total proteinOrdered By: Marlen Parikh on 03-26-2025 Protein [Mass/Vol] 7.0 g/dL 5.9-8.4 [facility] Troponin T.cardiac [Mass/vol ume] in Serum or Plasma by High sensitivity methodOrdered By: Miguel Angel Parikh on 03-26-2025 Troponin T.cardiac High sensitivity method [Mass/Vol] < 6 ng/L <14 [facility] Urine clarityOrdered By: Marlen Parikh on 03-26-2025 Clarity (U) Clear Clear [facility] Urine color determinationOrd ered By: Miguel Angel Parikh on 03-26-2025 Color (U) Yellow Yellow [facility] Urine glucose detectionOrder ed By: Miguel Angel Parikh on 03-26-2025 Glucose Ql (U) Normal mg/dl Normal [facility] Urine leukocyte esterase det ection by dipstickOrdered By: Miguel Angel Parikh on 03-26-2025 Leukocyte esterase Test strip Ql (U) 500 /ul High Negative [facility] Urine pHOrdered By: Miguel Angel landrum on 03-26-2025 pH (U) 5.0 [pH] 5.0 - 8.0 [facility] Urine phencyclidine (PCP) de tectionOrdered By: Miguel Angel Parikh on 03-26-2025 Phencyclidine Ql (U) Negative < 25 ng/mL [facility] Urine sediment bacteria coun t by microscopy (number/high power field)Ordered By: Miguel Angel Parikh on 03-26-2025 Bacteria LM.HPF (Urine sed) [#/Area] 2 /[HPF] None Seen [facility] Urine specific gravity measu rementOrdered By: Miguel Angel Parikh on 03-26-2025 Specific gravity (U) [Rel density] 1.025 1.002-1.03 0 [facility] Urine urobilinogen measureme ntOrdered By: Miguel Angel Parikh on 03-26-2025 Urobilinogen Ql (U) Normal mg/dl Normal [facility] White blood cell (WBC) count Ordered By: Miguel Angel Parikh on 03-26-2025 WBC (Bld) [#/Vol] 11.6 10*3/uL High 4.4-11.0 [facility] White blood cell countOrdere d By: Miguel Angel Parikh on 03-26-2025 White blood cell count >100 SEEN /hpf 0-5 [facility] Pulmonary Visit Reporton Pulmonary Visit Report [facility] [place] [address] [place], [place] [id number] OFFICE VISIT Date of Service: 03/08/25 MR#: [id number] Acct: [id number] Name: CLIFTON CAGE Rep #: [id number] : 1980 Provider: OSMANY Lee Age/Sex: 44/F [facility] Status: Signed Assessment and Plan Assessment and Plan (1) Asthma: Status: Chronic Qualifiers: Asthma severity: moderate Asthma complication type: uncomplicated Asthma persistence: persistent Qualified Code(s): J45.40 - Moderate persistent asthma, uncomplicated; J45.40 - Moderate persistent asthma, uncomplicated; J45.40 - Moderate persistent asthma, uncomplicated Plan: Stable, no signs of exacerbation of asthma today. No change in maintenance medications, symptomatically controlled with use of Breo and Singulair. No additional testing at this time. Contact the office with any signs of new or worsening symptoms. Follow-up in 4 months. (2) CHF (congestive heart failure): Status: Chronic Qualifiers: Heart failure type: unspecified Heart failure chronicity: unspecified Qualified Code(s): I50.9 - Heart failure, unspecified Plan: Complicates exam, plan, care and prognosis. (3) Restrictive lung disease: Status: Chronic Plan: Clinically and symptomatically stable at this time. (4) Chronic respiratory failure: Status: Chronic Qualifiers: Respiratory failure complication: hypoxia Qualified Code(s): J96.11 - Chronic respiratory failure with hypoxia Plan: She is using and benefiting from both supplemental oxygen and the noninvasive ventilator. Continue to titrate as needed to maintain saturations 89 to 92%. Follow-up in 4 months. (5) Obstructive sleep apnea: Status: Chronic Comment: on trilogy Plan: She is using and benefiting from NIV. No indication for pressure changes. Follow-up in 4 months. (6) Mild intellectual disabilities: Status: Chronic Plan: Complicates exam, plan, care and prognosis. Plan Details Additional Comments: This note was generated with [employer] dictation software. It may contain incorrect words, spelling, and punctuation that were not noted in checking the note before signing. Follow Up: 4 Months HPI 3 M FU Chief Complaint: Test results HPI Comments Details: This patient presents to the office today for routine follow-up on her obstructive sleep apnea and restrictive airway disease with chronic hypoxemia and to discuss test results. She is ambulatory, and currently on supplemental oxygen. She has not recently been seen in the ED or urgent care for any respiratory illness. She has not required any antibiotics or prednisone for any breathing problems. She was seen in the emergency department approximately 1 month ago secondary to anaphylactic reaction to Flagyl. She was successfully treated in the emergency department and released home. She did not require hospitalization. She is compliant with use of Breo 1 puff daily. She does report rinsing her mouth out after each use. She denies any medication side effects such as sore throat or thrush. She is also compliant with Singulair daily. She is using DuoNebs twice daily. She has not been using albuterol recently. If you recall, she is a lifelong never smoker. She continues to have shortness of breath. She denies any cough, sputum production or hemoptysis. She denies any wheezing, chest tightness, chest pain or palpitations. She has not had any fever, chills or body aches. She reports excellent compliance with her noninvasive ventilator. She is not requiring naps. She is not nodding off to sleep unintentionally. She denies any difficulty with dry mouth or mask leaks. She is compliant with supplemental oxygen. Using 2 L per minute at all times. Compliance report for the past 30 days shows 100% compliance with an average use of 11 hours and 3 minutes per night. Current setting is TTV???AVAPS???AE EPAP minimum 5 cm of water, EPAP maximum 15 cmH2O, pressure support 5 cmH2O with a pressure support max of 20 cm of water, target volume 380 mL. Test results personally reviewed with the patient: Pulmonary function test completed on January 17, 2025. Impression is severe restrictive impairment with moderate reduction in diffusing capacity. Walking oximetry completed on January 19, 2025. The patient was able to ambulate total of 955 feet over the course of 6 minutes. It is recommended that she utilize 1 L/min pulsed dose supplemental oxygen with ambulation. Intake Vital Signs 12/13/24 08:03 03/08/25 08:34 Height 5 ft 8 in 5 ft 8 in Weight: 260 lb BMI 39.5 BP 149/94 H Blood Pressure Location Rt brachial Position Sitting Respiration 18 Pulse 76 Pulse Source Monitor Temp 97.4 F L Temperature Source Temporal Artery Pulse Oximetry (%) 97 Oxygen Delivery Method nasal canula (more content not included)... Normal [facility] PAP IG HPV APTIMA 16/18,45on 02-13-2025 ADEQ Comment Normal . [facility] Comment on above: Order Comment: Speci men Comment: [id number] Specimen Comment: No. of containers..01 ThinPrep Vial Result Comment: Sati sfactory for evaluation. Endocervical and/or squamous metaplastic cells (endocervical component) are present. Areas of partially obscuring inflammatory exudate are present. Performed By: #### L 7000.1800, L7400.0280 #### [facility] [address] [place], [place], [id number] COMM . Normal . [facility] Comment on above: Order Comment: Speci men Comment: [id number] Specimen Comment: No. of containers..01 ThinPrep Vial Performed By: #### L 7000.1800, L7400.0280 #### [facility] [address] [place], [place], [id number] COMMENT Comment Normal . [facility] Comment on above: Order Comment: Speci men Comment: [id number] Specimen Comment: No. of containers..01 ThinPrep Vial Result Comment: This liquid based ThinPrep(R) pap test was screened with the use of an image guided system. Performed By: #### L 7000.1800, L7400.0280 #### [facility] [address] [place], [place], [id number] DIAG Comment Normal . [facility] Comment on above: Order Comment: Speci men Comment: [id number] Specimen Comment: No. of containers..01 ThinPrep Vial Result Comment: NEGA TIVE FOR INTRAEPITHELIAL LESION OR MALIGNANCY. REACTIVE CELLULAR CHANGES AND/OR REPAIR ARE PRESENT. TRICHOMONAS VAGINALIS IS PRESENT. Performed By: #### L 7000.1800, L7400.0280 #### [facility] [address] [place], [place], [id number] HPV APTIMA, HR Negative Normal Negative [facility] Comment on above: Order Comment: Speci men Comment: [id number] Specimen Comment: No. of containers..01 ThinPrep Vial Result Comment: This nucleic acid amplification test detects fourteen high- risk HPV types (16,18,31,33,35,39,45,51,52,56,58,59,66,68) without differentiation. Performed By: #### L 7000.1800, L7400.0280 #### [facility] [address] [place], [place], [address] HPV Maureen Rfx Comment Normal . [facility] Comment on above: Order Comment: Speci men Comment: [id number] Specimen Comment: No. of containers..01 ThinPrep Vial Result Comment: Crit eria not met, HPV Genotype not performed. Performed at: - [facility] [id number] Mineralogy Professor: Lizette Marin MD, Phone: [phone] Performed at: = - [facility] [id number] Mineralogy Professor: Lizette Marin MD, Phone: [phone] Performed By: #### L 7000.1800, L7400.0280 #### [facility] [address] [place], [place], [id number] PAPSMR Comment Normal . [facility] Comment on above: Order Comment: Speci men Comment: [id number] Specimen Comment: No. of containers..01 ThinPrep Vial Result Comment: The Pap smear is a screening test designed to aid in the detection of premalignant and malignant conditions of the uterine cervix. It is not a diagnostic procedure and should not be used as the sole means of detecting cervical cancer. Both false-positive and false-negative reports do occur. Performed By: #### L 7000.1800, L7400.0280 #### [facility] [address] [place], [address] Path.prov.IDC-9 Comment Normal . [facility] Comment on above: Order Comment: Speci men Comment: [id number] Specimen Comment: No. of containers..01 ThinPrep Vial Result Comment: R87. 5 Performed By: #### L 7000.1800, L7400.0280 #### [facility] [address] [place], [address] PERFORM Comment Normal . [facility] Comment on above: Order Comment: Speci men Comment: [id number] Specimen Comment: No. of containers..01 ThinPrep Vial Result Comment: Aziza Borges, Mottler Operator (ASCP) Performed By: #### L 7000.1800, L7400.0280 #### [facility] [address] [place], [address] SIGN Comment Normal . [facility] Comment on above: Order Comment: Speci men Comment: [id number] Specimen Comment: No. of containers..01 ThinPrep Vial Result Comment: Madison Michele MD, Pathologist Performed By: #### L 7000.1800, L7400.0280 #### [facility] [address] [place], [address] Chlamydia/GC GURPREET aptimaon CHLAMY,NUC ACID Negative Normal Negative [facility] Comment on above: Performed By: #### L 7000.1800, L7400.0280 #### [facility] [address] [place], [address] GC BY NUC ACID Negative Normal Negative [facility] Comment on above: Result Comment: Perf ormed at: =G - [facility] [address] [id number] Mineralogy Professor: Lizette Marin MD, Phone: [phone] Performed By: #### L 7000.1800, L7400.0280 #### [facility] [address] [place], [address] 12 Lead EKGon 02-07-2025 12 Lead EKG [facility] [address] [place] [address] 12 Lead EKG 02/07/25 1638 MR#: [id number] Acct: [id number] Name: CLIFTON CAGE Rep #: [id number] : 1980 44 From: Daniel Obrien MD Attending Dr: Status: DEP ER Ordering Dr: Lisa Bailey DO Date: 02/07/25 Location: ED Sex: F C Admitted: Test Reason : Blood Pressure : */* mmHG Vent. Rate : 102 BPM Atrial Rate : 102 BPM P-R Int : 178 ms QRS Dur : 76 ms QT Int : 356 ms P-R-T Axes : 64 57 53 degrees QTcB Int : 463 ms Sinus tachycardia Biatrial enlargement Abnormal ECG Confirmed by Daniel Obrien ([id number]), supervising film or videotape editor ALYSIA HEBERT ([id number]) on 02/09/2025 12:13:17 PM Referred By: Lisa Bailey Confirmed By: Daniel Obrien 02/09/25 1213 Date Daniel Obrien MD CC: Dr. Kenneth Villanueva DO; Dr. Lisa Bailey DO Signed Normal [facility] Chest 1 View (Portable)on Chest 1 View (Portable) [facility] Services [address] [place] [address] Chest 1 View (Portable) MR#: [id number] Acct: [id number] Name: CLIFTON CAGE Rep #: [id number] : 1980 F 44 From: Best dick MD PCP: Dr. Kenneth Villanueva DO Status: REG ER Study: Chest 1 View (Portable) Date of Exam: 02/07/25 Exam# [id number] Ordering Dr: Lisa Bailey DO PROCEDURE: CHEST 1 VIEW (PORTABLE) 02/07/2025 REASON FOR EXAM: DYSPNEA TECHNIQUE: Frontal view of the chest. COMPARISON: 11/26/2019 FINDINGS: Hardware: None Heart: Stable cardiomediastinal silhouette. Lungs: Bibasilar atelectasis. No pneumothorax. No pleural effusion. No focal consolidation. Bones: The bones are unremarkable. Other: RAD/Chest 1 View (Portable) IMPRESSION: No Acute Findings. Reading Location: [facility] CC: Dr. Kenneth Villanueva DO; Dr. Lisa Bailey DO Junior Net Developer: Signed Normal [facility] Emergency Department Summary on 02-07-2025 Emergency Department Summary [facility] Medical Records Department [address] [place] [address] Emergency Department Summary 02/07/25 MR#: [id number] Acct: [id number] Name: CLIFTON CAGE Rep #: [id number] : 1980 44 From: Lisa Bailey DO PCP: Dr. Kenneth Villanueva DO Status:DEP ER Location: ED HPI History of Present Illness Chief Complaint: Allergic Reaction Detail of Chief Complaint: Allergic reaction Informant: patient Narrative Narrative: Patient presents to the emergency department from home with concern for an allergic reaction. Patient states that she was sitting when she had sudden onset of feeling very flushed in her upper body got very red. She felt short of breath and lightheaded. An hour prior she had taken Flagyl for the first time for a bacterial vaginal infection. Patient then checked her pulse ox and it was low. She normally does wear home O2 but at times will use it as needed at home. She denies chest pain. She denies recent travel or surgery. She has history of COPD. She has history of chronic respiratory failure. She states that she only has 1 good working lung and that is the right side. She denies recent illness. [facility] Medical History Depression Anxiety Diabetes Bladder disease Low iron Fatty liver Easy bruising Neuropathy Injury of back Migraine headache Seizures Dietary restriction Bowel obstruction Chronic constipation Gastric reflux Central sleep apnea treated with adaptive servo-ventilation (ASV) device History of Holter monitoring History of echocardiogram History of stress test Failure to thrive Hypertension Cardiology follow-up encounter On home oxygen therapy Collapsed lung History of hiatal hernia Pneumonia HLD (hyperlipidemia) probable cardiogenic shock Class 2 severe obesity due to excess calories with serious comorbidity and body mass index (BMI) of 38.0 to 38.9 in adult COPD (chronic obstructive pulmonary disease) Chronic respiratory failure Bradycardia Lactic acidosis Diaphragmatic hernia congenital Chronic hypoxemic respiratory failure Diabetic autonomic neuropathy associated with type 2 diabetes mellitus Migraine without aura or status migrainosus Paroxysmal supraventricular tachycardia Restrictive lung disease secondary to obesity 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 Congenital diaphragmatic hernia BMI 40.0-44.9, adult Obstructive sleep apnea Morbid obesity Type 2 diabetes mellitus Home Medications ???Medication ???Instructions ???Recorded ???Last Taken ???Type gabapentin 100 mg capsule 100 mg PO TID Diabetes 09/24/17 History pantoprazole 40 mg tablet,delayed 40 mg PO DAILY GERD/reflux 02/02/23 05:00 History release PEP device #1 ea 10/08/22 Unknown Rx blood pressure monitor (Blood #1 ea 10/26/22 Unknown Rx Pressure Kit) hydralazine 50 mg tablet See Rx Instructions .Route 4 Unknown Rx .COMPLEX #240 tabs clonidine 0.2 mg/24 hr weekly 1 patch topical QWEEK 06/13/24 Unk nown History transdermal patch potassium chloride 10 mEq 10 meq PO BID 06/13/24 Unknown His tory tablet,extended release spironolactone 50 mg tablet 50 mg PO QDAY 06/13/24 Unknown His tory tirzepatide 5 mg/0.5 mL mg subcut 06/13/24 Unknown History subcutaneous pen injector (Ugounvenuro) dicyclomine 10 mg capsule 10 mg PO .qid IBS 07/18/24 Unknown History furosemide 40 mg tablet 40 mg PO QDAY 07/18/24 Unknown His tory irbesartan 150 mg tablet 300 mg PO QDAY 07/18/24 Unknown Hi story magnesium oxide 400 mg PO QDAY 07/18/24 Unknown Hi story psyllium husk 0.52 gram capsule 0.52 g PO QDAY 07/18/24 Unknown Hi story (Fiber-Caps (psyllium husk)) topiramate 100 mg capsule,extended 150 mg PO QDAY 07/18/24 Unknown History release 24 hr (Trokendi XR) albuterol sulfate 90 mcg/actuation 2 puff inhalation Q6H PRN SOB #8 .5 12/13/24 Unknown Rx aerosol inhaler grams fluticasone furoate 200 1 inh inhalation DAILY #60 ea 12/02 11/28 Unknown Rx mcg-vilanterol 25 mcg/dose inhalation powder (Breo Ellipta) ipratropium 0.5 mg-albuterol 3 mg 3 ml inhalation .QID PRN SOB #180 12/13/24 Unknown Rx (2.5 mg base)/3 mL nebulization mL soln montelukast 10 mg tablet 10 mg PO QDAY #90 tabs 12/13/24 Un known Rx amlodipine 10 mg tablet 10 mg PO BID #180 tabs 01/03/25 Un known Rx atorvastatin 40 mg tablet 80 mg PO QHS 01/19/25 Unknown Hist ory handicap Placcard #1 ea 01/19/25 Unknown Rx labetalol 400 mg tablet 400 mg PO BID #60 tabs 01/19/25 Un known Rx metronidazole 500 mg tablet 500 mg PO BID 7 days #14 tabs 03/28 Unknown Rx boric acid 600 mg vaginal 600 mg vaginal .QD 21 days #21 ea 02/07/25 Unknown Rx suppository (Azo Boric Acid) epinephrine 0.3 mg/0.3 mL 0. (more content not included)... Normal [facility] Cervical or vaginal specimen microscopic examination by liquid based cytology (reportOrdered By: Felicia Gonzalez on 02-06-2025 Cytology report Cyto stain.thin prep Doc (Cvx/Vag) Comment . [facility] Comment on above: Criteria not met, HP V Genotype not performed.Performed at: [address] [id number] Director: Lizette Marin MD, Phone: [phone] at: =[facility] [id number] Director: Lizette Marin MD, Phone: [phone] Cervical or vagninal specime n microscopic examination by cytology stain (reported asOrdered By: Felicia Gonzalez on 02-06-2025 Cytology report Cyto stain Doc (Cvx/Vag) Comment . [facility] Comment on above: The Pap smear is a s creening test designed to aid in thedetection of premalignant and malignant conditions of theuterine cervix. It is not a diagnostic procedure andshould not be used as the sole means of detecting cervicalcancer. Both false-positive and false-negative reports dooccur. Chlamydia trachomatis rRNA d etection by probe and target amplification methodOrdered By: Felicia Gonzalez on 02-06-2025 C. trachomatis rRNA GURPREET+probe Ql (Unsp spec) Negative Negative [facility] Detection in cervical specim en of any of human papilloma virus (HPV) 16, 18, 31, 33,Ordered By: Felicia Gonzalez on 02-06-2025 HPV 16+18+31+33+35+39+45+5 1+52+56+58+59+66+68 DNA Probe+sig amp Ql (Cvx) Negative Negative [facility] Comment on above: This nucleic acid am plification test detects fourteen high- risk HPV types (16,18,31,33,35,39,45,51,52,56,58,59,66,68)without differentiation. Laboratory - CytologyOrdered By: Felicia Gonzalez on 02-06-2025 Mottler Operator Cyto stain Nom (Cvx/Vag) [ID] Comment . [facility] Comment on above: Aneesh Saunders tologist (ASCP) Pathologist Cyto stain Nom (Cvx/Vag) [ID] Comment . [facility] Comment on above: Eunice Michele MD, Pa thologist Laboratory - Miscellaneous t estsOrdered By: Felicia Gonzalez on 02-06-2025 Service comment (Unsp spec) [Interp] . . [facility] Neisseria gonorrhoeae nuclei c acid detection by amplified probe techniqueOrdered By: Felicia Gonzalez on 02-06-2025 N. gonorrhoeae DNA GURPREET+probe Ql (Unsp spec) Negative Negative [facility] Comment on above: Performed at: =[address] [id number] Director: Lizette Marin MD, Phone: [phone] No Panel InformationOrdered By: Felicia Gonzalez on 02-06-2025 Pap Smear Specimen Adequacy Comment . [facility] Comment on above: Satisfactory for tomás luation. Endocervical and/or squamous metaplasticcells (endocervical component) are present.Areas of partially obscuring inflammatory exudate are present. Pathology report final diagnosis Narrative Comment . [facility] Comment on above: R87.5 Comment . [facility] POC Trichomonas (Rapid) Positive [facility] Positive [facility] [employer] Office Visit Reporton 02-06-2025 [employer] Office Visit Report [facility] [address], [address] [place] [address] OFFICE VISIT Date of Service: 02/06/25 MR#: [id number] Acct: [id number] Name: CLIFTON CAGE Rep #: [id number] : 1980 Provider: OSMANY cervantes Age/Sex: 44/F Location: [facility] Status: Signed Intake Vital Signs 12/13/24 08:03 01/19/25 12:30 02/06/25 11:19 02/06/25 11:20 Height 5 ft 8 in 5 ft 8 in 5 ft 8 in 5 ft 8 in Weight: 264 lb 2 oz BMI 40.1 BP 163/86 H Intake Visit Reasons: Annual (SKIP MINER BLASTING) Dining Room Host/Hostess Required: No Is patient in pain?: No Allergies amoxicillin Allergy (Severe, Verified 02/06/25 11:20) Anaphylaxis nabumetone Allergy (Unknown, Verified 02/06/25 11:20) Unknown hydrocodone bitartrate (From [place]) Allergy (Verified 02/06/25 11:20) Itching Penicillins Allergy (Verified 02/06/25 11:20) Swelling carvedilol Adverse Reaction (Severe, Verified 02/06/25 11:20) shortness of breath, chest pain doxycycline Adverse Reaction (Verified 02/06/25 11:20) Itching Medications ???Medication ???Instructions ???Recorded ???Confirmed ???Type gabapentin 100 mg capsule 100 mg PO TID Diabetes 09/24/17 History pantoprazole 40 mg tablet,delayed 40 mg PO DAILY GERD/reflux 02/06/25 History release PEP device #1 ea 10/08/22 02/06/25 Rx blood pressure monitor (Blood #1 ea 10/26/22 02/06/25 Rx Pressure Kit) hydralazine 50 mg tablet See Rx Instructions .Route 04/27/ 4 02/06/25 Rx .COMPLEX #240 tabs clonidine 0.2 mg/24 hr weekly 1 patch topical QWEEK 06/13/2403/28 History transdermal patch potassium chloride 10 mEq 10 meq PO BID 06/13/24 02/06/25 Hi story tablet,extended release spironolactone 50 mg tablet 50 mg PO QDAY 06/13/24 02/06/25 Hi story tirzepatide 5 mg/0.5 mL mg subcut 06/13/24 02/06/25 Histor y subcutaneous pen injector (Gregorio) dicyclomine 10 mg capsule 10 mg PO .qid IBS 07/18/24 5 History furosemide 40 mg tablet 40 mg PO QDAY 07/18/24 02/06/25 Hi story irbesartan 150 mg tablet 300 mg PO QDAY 07/18/24 02/06/25 H istory magnesium oxide 400 mg PO QDAY 07/18/24 02/06/25 H istory psyllium husk 0.52 gram capsule 0.52 g PO QDAY 07/18/24 02/06/25 H istory (Fiber-Caps (psyllium husk)) topiramate 100 mg capsule,extended 150 mg PO QDAY 07/18/24 02/06/25 History release 24 hr (Trokendi XR) albuterol sulfate 90 mcg/actuation 2 puff inhalation Q6H PRN SOB #8 .5 12/13/24 02/06/25 Rx aerosol inhaler grams fluticasone furoate 200 1 inh inhalation DAILY #60 ea 12/0202/06/25 Rx mcg-vilanterol 25 mcg/dose inhalation powder (Breo Ellipta) ipratropium 0.5 mg-albuterol 3 mg 3 ml inhalation .QID PRN SOB #180 12/13/24 02/06/25 Rx (2.5 mg base)/3 mL nebulization mL soln montelukast 10 mg tablet 10 mg PO QDAY #90 tabs 12/13/24 Rx amlodipine 10 mg tablet 10 mg PO BID #180 tabs 01/03/25 Rx atorvastatin 40 mg tablet 80 mg PO QHS 01/19/25 02/06/25 His tory handicap Placcard #1 ea 01/19/25 02/06/25 Rx labetalol 400 mg tablet 400 mg PO BID #60 tabs 01/19/25 Rx Is last menstrual period known: No Post menopausal: No Patient : No : No Control Method: tubal PFSH Medical History Depression Anxiety Diabetes Bladder disease Low iron Fatty liver Easy bruising Neuropathy Injury of back Migraine headache Seizures Dietary restriction Bowel obstruction Chronic constipation Gastric reflux Central sleep apnea treated with adaptive servo-ventilation (ASV) device History of Holter monitoring History of echocardiogram History of stress test Failure to thrive Hypertension Cardiology follow-up encounter On home oxygen therapy Collapsed lung History of hiatal hernia Pneumonia HLD (hyperlipidemia) probable cardiogenic shock Class 2 severe obesity due to excess calories with serious comorbidity and body mass index (BMI) of 38.0 to 38.9 in adult COPD (chronic obstructive pulmonary disease) Chronic respiratory failure Bradycardia Lactic acidosis Diaphragmatic hernia congenital Chronic hypoxemic respiratory failure Diabetic autonomic neuropathy associated with type 2 diabetes mellitus Migraine without aura or status migrainosus Paroxysmal supraventricular tachycardia Restrictive lung disease secondary to obesity 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 Congenital diaphragmatic hernia BMI 40.0-44.9, adult Obstructive sleep apnea Morbid obesity Type 2 diabetes mellitus Surgical History Hx of colonoscopy Hx of ventral hernia repair S/P laparotomy History of removal of ovarian cyst History of section (more content not included)... Normal [facility] 6 Minute Walk Teston 01-26- 025 6 Minute Walk Test y [facility] Pulmonary Services/Neurology [address] [place] [address] MR#: [id number] Acct: [id number] Name: CLIFTON CAGE Rep #: [id number] : 1980 44 From: Dominick Mcclendon DO Referring Dr: Flori Lee PRECISION GRINDER PRECISION GRINDER-C Status: DEP CLI Location: PSN Date: Sex: F C PSN 6 Minute Walk Test 6 Minute Walk Test 6 Minute Walk Test: 6 Minute Walk Test PSN:6-Minute Walk Test Start: 01/19/25 12:36 Freq: Status: Discharge Protocol: [id number] Document 01/19/25 12:30 AEH (Rec: 01/19/25 12:46 AEH [id number]) 6 Minute Walk Test Date Performed 01/19/25 Time Performed 12:30 Height 5 ft 8 in Weight: 255 lb Weight in Pounds 255.[address]: Arlene Assistive device None used: Pre-test Oxygen Delivery Room Air Method Pulse Ox (%) 96 Pulse Rate (60-100 91 beats/min) Dyspnea Kelly Scale ( 0.5 0-10) Exertion Kelly Scale 6 (6-20) 1st minute Oxygen Delivery Room Air Method Pulse Rate (60-100 92 beats/min) Dyspnea Kelly Scale ( 110 0-10) 2nd minute Oxygen Delivery Room Air Method Pulse Ox (%) 88 Pulse Rate (60-100 115 H beats/min) 3rd minute Oxygen Flow Rate (L/ 1 min) (L/min) Oxygen Delivery Nasal Cannula Method Pulse Rate (60-100 93 beats/min) Dyspnea Kelly Scale ( 112 0-10) 4th minute Oxygen Flow Rate (L/ 1 min) (L/min) Oxygen Delivery Nasal Cannula Method Pulse Ox (%) 92 Pulse Rate (60-100 113 H beats/min) Reported Symptoms Increased Work of Breathing 5th minute Oxygen Flow Rate (L/ 1 min) (L/min) Oxygen Delivery Nasal Cannula Method Pulse Ox (%) 89 Pulse Rate (60-100 115 H beats/min) Reported Symptoms Increased Work of Breathing 6th minute Oxygen Flow Rate (L/ 1 min) (L/min) Oxygen Delivery Room Air Method Pulse Ox (%) 93 Pulse Rate (60-100 118 H beats/min) Dyspnea Kelly Scale ( 3 0-10) Exertion Kelly Scale 13 (6-20) Reported Symptoms Increased Work of Breathing Post-test Oxygen Flow Rate (L/ 2 min) (L/min) Oxygen Delivery Nasal Cannula Method Pulse Ox (%) 96 Pulse Rate (60-100 100 beats/min) Full Laps Walked 16 Partial Lap, Number 11 of Tiles Walked Total Distance 955 Walked (ft) 01/19/25 12:42 Cardiopulmonary Services by Mirella Gomez Pt arrived at walk on 2 lpm pulse dose oxygen. Pt was placed on room air. Walk was started on room air. Two minutes into walk pt was placed back on pulse dose oxygen at 1 lpm. Pt was able to finish walk on 1 lpm pulse dose. Post walk pt placed herself back up to 2 lpm pulse dose stating that she feels better and more comfortable on the 2 lpm. Initialized on 01/19/25 12:42 - END OF NOTE Interpretation Interpretation: The patient ambulated 955 feet over the course of 6 minutes beginning on room air without assistive devices. Pretesting oxygen saturation was noted to be 96% on room air. With ambulation, the shayne oxygen saturation was 88%. 1 L/min of pulsed dose supplemental oxygen was applied and the patient was able to complete the remainder of the test while maintaining appropriate saturations. Recommendations Recommendations: 1 L/min of pulse dose supplemental oxygen is required with exertion. 01/26/25 1222 Date Dominick Mcclendon DO CC: Date Dictated: 01/26/25 1221 Date Transcribed: 01/26/25 1221 Junior Net Developer: Dr. Dominick Mcclendon DO Signed [facility] Telephone (REFPHY) TYRELCLIFTON Marin ([id number]) 1980 F Date Time Provider Department 01/24/25 NO ONE (HISTORICAL) REFPHY During your visit today, we recorded the following information about you: Anisha Boyce 01/24/2025 4:37 PM Signed Patient: Clifton Cage Date of : 1980 Patient phone number: [phone] Referring Provider for the encounter: Kianna Desir PRECISION GRINDER Requesting Provider: Reason for requesting visit (RFV/signs and symptoms/diagnosis): Resistent HTN - young and on many medicines - PRECISION GRINDER wondering if there were other options such as if she was a candidate for the renal artery denervation. Kianna called in the referral. Person calling: caregiver: Anisha Return call to: patient Medical Records/Insurance Card scanned into [facility]: No Comments: Kianna Desir PRECISION GRINDER's office isreferring the patient to be seen in [facility] for Resistent HTN office - [phone] Fax - [phone] iKanna would like to be notified to send records. Allergies As of Date: 01/24/2025 Noted Allergy Reaction NABUMETONE 03/29/2006 7 - Swelling Comments: Throat swelling, shortness of breath. She can take ibuprofen. PENICILLINS 06/29/2005 7 - Swelling 12 - Shortness of Breath NORCO (HYDROCODONE-ACETAMINOPHEN) 01/17/2016 2 - Rash 9 - Itching Date Reviewed: 06/20/2024 Reviewed by: Nilda Elise, RN - Fully Assessed Prescriptions as of 01/24/2025 - MOUNJARO 5 mg/0.5 mL pen injector Inject 5 mg subcutaneously one time a week. - oseltamivir (TAMIFLU) 75 mg capsule Take 1 capsule by mouth every 12 hours. - predniSONE (DELTASONE) 20 mg tablet Take 1 tablet by mouth as directed. - amitriptyline (ELAVIL) 10 mg tablet TWICE A DAY - amLODIPine (NORVASC) 10 mg tablet DAILY - atorvastatin (LIPITOR) 40 mg tablet AT BEDTIME - JARDIANCE 25 mg tablet - FREESTYLE CHARLA 14 DAY SENSOR kit - BREO ELLIPTA 200-25 mcg/dose inhaler - glipiZIDE (GLUCOTROL) 5 mg tablet Take by mouth. - hydrALAZINE (APRESOLINE) 50 mg tablet THREE TIMES A DAY - irbesartan (AVAPRO) 150 mg tablet DAILY - levothyroxine 150 mcg cap Take by mouth. - megestrol (MEGACE) 40 mg tablet .COMPLEX - pantoprazole DR (PROTONIX) 40 mg tablet - sertraline (ZOLOFT) 100 mg tablet Take 1 tablet by mouth once daily. - TROKENDI XR 100 mg capsule 50mg in AM and 100mg at bedtime - topiramate XR (TROKENDI XR) 50 mg capsule Take 1 capsule by mouth once daily. - traZODone (DESYREL) 50 mg tablet - gabapentin (NEURONTIN) 100 mg capsule Take 1 capsule by mouth daily at bedtime. For RLS-PRN does not take nightly - dulaglutide (TRULICITY) 0.75 mg/0.5 mL pnij Inject 1 Dose subcutaneously once each week. Per endo - metFORMIN ER (GLUCOPHAGE XR) 500 mg 24 hr tablet Take 1 tablet by mouth twice daily before meals. - dicyclomine (BENTYL) 10 mg capsule TAKE 1 CAPSULE BY MOUTH BEFORE MEALS AND TAKE 1 CAPSULE AT BEDTIME - verapamil SR (CALAN SR, ISOPTIN SR) 240 mg CR tablet TAKE 1 TABLET BY MOUTH TWICE A DAY - furosemide (LASIX) 20 mg tablet Take 1 tablet by mouth twice daily. - albuterol HFA (VENTOLIN HFA) 90 mcg/actuation inhaler 2 Puffs every 4-6 hours as needed for shortness of breath - miSOPROStol (CYTOTEC) 200 mcg tablet 2 tablets as directed. Take 2 tabs the night before AND 2 tabs the morning of the procedure - vaginally. - naproxen (NAPROSYN) 500 mg tablet Take 500 mg by mouth twice daily with meals. - spironolactone (ALDACTONE) 25 mg tablet TAKE 1 TABLET BY MOUTH TWICE DAILY - COMPOUNDED PRESCRIPTION supplemental oxygen via nasal cannula 3 LPM. Please also provide portable equipment as patient is active outside of the home. Diagnosis: hypoxemia. - metOLAzone (ZAROXOLYN) 5 mg tablet Take 1 tablet by mouth once each week. - metoprolol succinate ER (TOPROL XL) 200 mg 24 hr tablet Take 0.5 tablets by mouth once daily. - baclofen (LIORESAL) 20 mg tablet Take 1 tablet by mouth three times daily as needed (muscle spasms). - fluticasone-salmeterol (ADVAIR DISKUS) 250-50 mcg/dose dsdv Inhale 1 Puff as instructed twice daily. RINSE MOUTH AFTER USE. - montelukast (SINGULAIR) 10 mg tablet Take 1 tablet by mouth daily at bedtime. - omeprazole (PRILOSEC) 20 mg capsule Take 1 capsule by mouth once daily. - potassium chloride (K-TAB) 10 mEq tablet Take 4 tablets by mouth once daily. - Insulin [place], Disposable, (BD ULTRAFINE III MINI PEN) 31 gauge x 3/16 ndle USE WITH victoza pens daily - Compression Knee Highs KNEE HIGH COMPRESSION STOCKINGS 20-30 MM Hg. DX: ICD9: 782.3, ICD10: R60.0; ICD9: 454.1, ICD10: I83.12, I83.11 Vicente Barney MD - medroxyPROGESTERone (PROVERA, CYCRIN) 10 mg tablet Take 1 tablet daily for 10 days every 8 weeks - Incontinence Pad, Liner, Disp (PREVAIL BLADDER CONTROL PAD) pads 1 Units as needed. - albuterol (PROVENTIL) 2.5 mg /3 mL (0.083 %) nebulizer solution (more content not included)... Normal [facility] Cardiology Visit Reporton Cardiology Visit Report [facility] [address] [place] [address] OFFICE VISIT Date of Service: 01/19/25 MR#: [id number] Acct: [id number] Name: CLIFTON CAGE Rep #: [id number] : 1980 Provider: CASSIDY Kohler Age/Sex: 44/F Location: [facility] Status: Signed HPI HPI History of Present Illness Details: This is a 44-year-old white female who presents today for outpatient cardiovascular follow-up. She has a history of PSVT, hyperlipidemia, and hypertension. She follows with nephrology as well. Unfortunately her blood pressure still remains rather elevated. She can tell when her blood pressure is elevated by her headaches and dizziness. She denies any palpitations, chest pain, pressure or heaviness. She does have SOB-this is nothing new or worsening. She denies Orthopnea, and PND. She does wear 3L of oxygen during the day, and a ventilator/oxygen at night. She does not have bleeding issues; no blood in urine, stool or nosebleeds. She denies any decrease in energy level, myalgias, or claudication. She does not have edema, or sudden weight gain. She does have occasional lightheadedness with quick positional changes. She denies syncopal or near syncopal episodes. Intake Vital Signs 07/18/24 09:37 01/19/25 07:36 Height 5 ft 8 in 5 ft 8 in Weight: 256 lb BMI 38.9 BP 136/89 H Blood Pressure Location Lt brachial Position Sitting Respiration 18 Pulse 92 Pulse Source Monitor Pulse Oximetry (%) 93 Intake Visit Reasons: 4 M FU Dining Room Host/Hostess Required: No Is patient in pain?: No Allergies amoxicillin Allergy (Severe, Verified 01/19/25 09:44) Anaphylaxis nabumetone Allergy (Unknown, Verified 01/19/25 09:44) Unknown hydrocodone bitartrate (From [place]) Allergy (Verified 01/19/25 09:44) Itching Penicillins Allergy (Verified 01/19/25 09:44) Swelling carvedilol Adverse Reaction (Severe, Verified 01/19/25 09:44) shortness of breath, chest pain doxycycline Adverse Reaction (Verified 01/19/25 09:44) Itching Medications ???Medication ???Instructions ???Recorded ???Confirmed ???Type gabapentin 100 mg capsule 100 mg PO TID Diabetes 09/24/17 History pantoprazole 40 mg tablet,delayed 40 mg PO DAILY GERD/reflux 01/19/25 History release PEP device #1 ea 10/08/22 12/13/24 Rx blood pressure monitor (Blood #1 ea 10/26/22 12/13/24 Rx Pressure Kit) hydralazine 50 mg tablet See Rx Instructions .Route 4 01/19/25 Rx .COMPLEX #240 tabs clonidine 0.2 mg/24 hr weekly 1 patch topical QWEEK 06/13/24 History transdermal patch potassium chloride 10 mEq 10 meq PO BID 06/13/24 01/19/25 Hi story tablet,extended release spironolactone 50 mg tablet 50 mg PO QDAY 06/13/24 01/19/25 Hi story tirzepatide 5 mg/0.5 mL mg subcut 06/13/24 01/19/25 Histor y subcutaneous pen injector (Gregorio) dicyclomine 10 mg capsule 10 mg PO .qid IBS 07/18/24 5 History furosemide 40 mg tablet 40 mg PO QDAY 07/18/24 01/19/25 Hi story irbesartan 150 mg tablet 300 mg PO QDAY 07/18/24 01/19/25 H istory magnesium oxide 400 mg PO QDAY 07/18/24 01/19/25 H istory psyllium husk 0.52 gram capsule 0.52 g PO QDAY 07/18/24 01/19/25 H istory (Fiber-Caps (psyllium husk)) topiramate 100 mg capsule,extended 150 mg PO QDAY 07/18/24 01/19/25 History release 24 hr (Trokendi XR) albuterol sulfate 90 mcg/actuation 2 puff inhalation Q6H PRN SOB #8 .5 12/13/24 01/19/25 Rx aerosol inhaler grams fluticasone furoate 200 1 inh inhalation DAILY #60 ea 12/0201/19/25 Rx mcg-vilanterol 25 mcg/dose inhalation powder (Breo Ellipta) ipratropium 0.5 mg-albuterol 3 mg 3 ml inhalation .QID PRN SOB #180 12/13/24 01/19/25 Rx (2.5 mg base)/3 mL nebulization mL soln montelukast 10 mg tablet 10 mg PO QDAY #90 tabs 12/13/24 Rx amlodipine 10 mg tablet 10 mg PO BID #180 tabs 01/03/25 Rx atorvastatin 40 mg tablet 80 mg PO QHS 01/19/25 01/19/25 His tory handicap Placcard #1 ea 01/19/25 01/19/25 Rx labetalol 400 mg tablet 400 mg PO BID #60 tabs 01/19/25 Rx Ejection fraction %: 65 Have you fallen in the past year?: No PFSH Medical History Depression Anxiety Diabetes Bladder disease Low iron Fatty liver Easy bruising Neuropathy Injury of back Migraine headache Seizures Dietary restriction Bowel obstruction Chronic constipation Gastric reflux Central sleep apnea treated with adaptive servo-ventilation (ASV) device History of Holter monitoring History of echocardiogram History of stress test Failure to thrive Hypertension Cardiology follow-up encounter On home oxygen therapy Collapsed lung History of hiatal (more content not included)... Normal [facility] Bilirubin directOrdered By: Kenneth Villanueva on 01-02-2025 Bilirubin.direct [Mass/Vol] 0.23 mg/dL 0.00-0.30 [facility] Bilirubin, totalOrdered By: Kenneth Villanueva on 01-02-2025 Bilirubin [Mass/Vol] 0.60 mg/dL 0.00-1.30 [facility] Calculated very low density lipoprotein (VLDL) cholesterol measurementOrdered By: Kenneth Villanueva on 01-02-2025 Calculated very low density lipoprotein (VLDL) cholesterol measurement 30 mg/dL 5-40 [facility] VLDL Cholesterol 30 mg/dL 5-40 [facility] LDL calc ser/plasOrdered By: Kenneth Villanueva on 01-02-2025 Cholesterol in LDL [Mass/Vol] 136 mg/dL [facility] Comment on above: Kmpwcapcpq=256-857 m g/dL & Higher Icwc=319 mg/dL or greater LDL Cholesterol, Calculated 136 mg/dL [facility] Comment on above: Xlaydkkhcd=783-867 m g/dL & Higher Qpje=403 mg/dL or greater Laboratory - Chemistry and C hemistry - challengeOrdered By: Kenneth Villanueva on 01-02-2025 AST [Catalytic activity/Vol] 37 U/L High <32 [facility] Lipid Profileon 01-02-2025 CHOL:HDL 5.18 Normal [facility] Comment on above: Performed By: #### L 500.4100, L500.3400 #### [facility] [address] [place], [place], [id number] ([phone]) Cholesterol [Mass/Vol] 205 mg/dL High <=200 [facility] Comment on above: Result Comment: Chol esterol level, Desirable <200 mg/dL Borderline high cholesterol 200-239 mg/dL High cholesterol >=240 mg/dL Recommendations of the NCEP Adult Treatment Panel for the following risk-cutoff thresholds for the [place] population. Performed By: #### L 500.4100, L500.3400 #### [facility] [address] [place], [address] Cholesterol in HDL [Mass/Vol] 40 mg/dL Normal [facility] Comment on above: Result Comment: Niesha onal Cholesterol Education Program (NCEP) guidelines: <40 mg/dL: Low HDL-cholesterol (major risk factor for CHD) >= 60 mg/dL: High HDL-cholesterol (negative risk factor for CHD) HDL-cholesterol is affected by a number of factors, e.g. smoking, exercise, hormones, sex and age. Performed By: #### L 500.4100, L500.3400 #### [facility] [address] [place], [address] Cholesterol in LDL [Mass/Vol] 136 mg/dL Normal [facility] Comment on above: Result Comment: Bord hfazfx=678-374 mg/dL Higher Rmum=492 mg/dL or greater Performed By: #### L 500.4100, L500.3400 #### [facility] [address] [place], [address] Cholesterol in VLDL [Mass/Vol] 30 mg/dL Normal 5-40 [facility] Comment on above: Performed By: #### L 500.4100, L500.3400 #### [facility] [address] [place], [address] Triglyceride [Mass/Vol] 149 mg/dL Normal [facility] Comment on above: Result Comment: The drugs N-Acetylcysteine and Metamizole may falsely depress this assay. Normal range: <150 mg/dL Borderline High: 150-199 mg/dL High: 200-499 mg/dL Very High: >500 mg/dL Performed By: #### L 500.4100, L500.3400 #### [facility] [address] [place], [address] Liver Profileon 01-02-2025 Albumin [Mass/Vol] 4.3 g/dL Normal 3.5-5.0 [facility] Comment on above: Performed By: #### L 500.4100, L500.3400 #### [facility] [address] [place], [address] ALK PHOS 89 U/L Normal 35-104 [facility] Comment on above: Performed By: #### L 500.4100, L500.3400 #### [facility] [address] [place], [address] ALT [Catalytic activity/Vol] 48 U/L High <=34 [facility] Comment on above: Performed By: #### L 500.4100, L500.3400 #### [facility] [address] [place], [address] AST [Catalytic activity/Vol] 37 U/L High <=31 [facility] Comment on above: Performed By: #### L 500.4100, L500.3400 #### [facility] [address] [place], [address] Bilirubin [Mass/Vol] 0.60 mg/dL Normal 0.00-1.30 [facility] Comment on above: Performed By: #### L 500.4100, L500.3400 #### [facility] [address] [place], [address] Bilirubin.direct [Mass/Vol] 0.23 mg/dL Normal 0.00-0.30 [facility] Comment on above: Performed By: #### L 500.4100, L500.3400 #### [facility] [address] [place], [address] Globulin (S) [Mass/Vol] 3.9 g/dL Normal 2.2-4.2 [facility] Comment on above: Performed By: #### L 500.4100, L500.3400 #### [facility] [address] [place], [address] T PROT 8.2 g/dL Normal 5.9-8.4 [facility] Comment on above: Performed By: #### L 500.4100, L500.3400 #### [facility] [address] [place], [address] No Panel InformationOrdered By: Kenneth Villanueva on 01-02-2025 37 U/L High <32 [facility] Screening total cholesterol/ high density lipoprotein (HDL) cholesterol ratioOrdered By: Kenneth Villanueva on 01-02-2025 Cholesterol.total/Chol esterol in HDL [Mass ratio] 5.18 {ratio} [facility] Serum globulin measurementOr dered By: Kenneth Villanueva on 01-02-2025 Globulin (S) [Mass/Vol] 3.9 g/dL 2.2-4.2 [facility] Serum or plasma alanine giang otransferase (ALT) measurementOrdered By: Kenneth Villanueva on 01-02-2025 ALT [Catalytic activity/Vol] 48 U/L High <35 [facility] Serum or plasma albumin rashi urement (mass/volume)Ordered By: Kenneth Villanueva on 01-02-2025 Albumin [Mass/Vol] 4.3 g/dL 3.5-5.0 [facility] Serum or plasma alkaline oksana sphatase measurementOrdered By: Kenneth Villanueva on 01-02-2025 ALP [Catalytic activity/Vol] 89 U/L 35-104 [facility] Serum or plasma cholesterol in HDL measurement (mass/volume)Ordered By: Kenneth Villanueva on 01-02-2025 Cholesterol in HDL [Mass/Vol] 40 mg/dL >40 [facility] Comment on above: National Cholesterol Education Program (NCEP) guidelines:<40 mg/dL: Low HDL-cholesterol (major risk factor for CHD)>= 60 mg/dL: High HDL-cholesterol (negative risk factor for CHD)HDL-cholesterol is affected by a number of factors, e.g. smoking, exercise, hormones, sex and age. Serum or plasma cholesterol measurement (mass/volume)Ordered By: Kenneth Villanueva on 01-02-2025 Cholesterol [Mass/Vol] 205 mg/dL High <201 [facility] Comment on above: Cholesterol level, D esirable <200 mg/dLBorderline high cholesterol 200-239 mg/dLHigh cholesterol >=240 mg/dLRecommendations of the NCEP Adult Treatment Panel for the following risk-cutoff thresholds for the [place] population. Total proteinOrdered By: Tracey Villanueva on 01-02-2025 Protein [Mass/Vol] 8.2 g/dL 5.9-8.4 [facility] Triglycerides measurementOrd ered By: Kenneth Villanueva on 01-02-2025 Triglyceride [Mass/Vol] 149 mg/dL <199 [facility] Comment on above: The drugs N-Acetylcy steine and Metamizole may falsely depress this assay. Normal range: <150 mg/dLBorderline High: 150-199 mg/dLHigh: 200-499 mg/dLVery High: >500 mg/dL Pulmonary Visit Reporton Pulmonary Visit Report [facility] [place] [address] [place] [address] OFFICE VISIT Date of Service: 12/13/24 MR#: [id number] Acct: [id number] Name: CLIFTON CAGE Rep #: [id number] : 1980 Provider: OSMANY Lee Age/Sex: 44/F Location: [facility] Status: Signed Assessment and Plan Assessment and Plan (1) Asthma: Status: Chronic Qualifiers: Asthma severity: moderate Asthma complication type: uncomplicated Asthma persistence: persistent Qualified Code(s): J45.40 - Moderate persistent asthma, uncomplicated; J45.40 - Moderate persistent asthma, uncomplicated; J45.40 - Moderate persistent asthma, uncomplicated Plan: Stable, no signs of exacerbation of asthma today. No change in maintenance medications, symptomatically controlled with use of Breo and Singulair. No additional testing at this time. Contact the office with any signs of new or worsening symptoms. Follow-up in 3 months. (2) CHF (congestive heart failure): Status: Chronic Qualifiers: Heart failure type: unspecified Heart failure chronicity: unspecified Qualified Code(s): I50.9 - Heart failure, unspecified Plan: Complicates exam, plan, care and prognosis. (3) Restrictive lung disease: Status: Chronic Plan: Symptomatically stable at this time. Repeating baseline PFT. (4) Chronic respiratory failure: Status: Chronic Qualifiers: Respiratory failure complication: hypoxia Qualified Code(s): J96.11 - Chronic respiratory failure with hypoxia Plan: She is using and benefiting from both supplemental oxygen and the noninvasive ventilator. She has noticed some desaturations with 2 LPM on exertion at home. In the meantime, I did suggest that she increase to 3 L/min when using the long extension hose at home. I also encouraged her to try to maintain a saturation of 90%. We will repeat the 6MWT to advise the patient on appropriate liter flow for safety Follow-up in 3 months. (5) Obstructive sleep apnea: Status: Chronic Comment: on trilogy Plan: She is using and benefiting from NIV. No indication for pressure changes. Follow-up in 3 months. (6) Mild intellectual disabilities: Status: Chronic Plan: Complicates exam, plan, care and prognosis. Orders: Orders Simple Pulmonary Exercise Test 01/19/25 J98.4 - Other disorders of lung PFT Complete - DLCO, Spirometry b/a bronchodilators, lung volumes 01/17/25 J98.4 - Other disorders of lung Medications: Refilled albuterol sulfate 90 mcg/actuation 2 puffs inhalation Q6H PRN 8.5 grams 11RF SOB J45.40 - Moderate persistent asthma, uncomplicated fluticasone furoate-vilanterol 200-25 mcg/dose (Breo Ellipta) 1 inh inhalation DAILY 60 ea 11RF J45.40 - Moderate persistent asthma, uncomplicated ipratropium-albuterol 0.5 mg-3 mg(2.5 mg base)/3 mL 3 mL inhalation .QID PRN 180 mL 6RF SOB J98.4 - Other disorders of lung montelukast 10 mg PO QDAY 90 tabs 3RF J98.4 - Other disorders of lung Plan Details Follow Up: 3 Months ([facility]) HPI HPI Comments Details: This patient presents to the office today for routine follow-up on her obstructive sleep apnea and restrictive airway disease with chronic hypoxemia. She is ambulatory, currently on supplemental oxygen and accompanied today by her . She has not recently been seen in the ED or urgent care for any respiratory illness. She has not required any antibiotics or prednisone for any breathing problems. She is compliant with use of Breo 1 puff daily. She does report rinsing her mouth out after each use. She denies any medication side effects such as sore throat or thrush. She is also compliant with Singulair daily. She is using DuoNebs twice daily. She has not been using albuterol recently. If you recall, she is a lifelong never smoker. She recently has not been using her Acapella device. She continues to have shortness of breath. Currently, she denies any cough, sputum production or hemoptysis. She denies any wheezing, chest tightness, chest pain or palpitations. She has not had any fever, chills or body aches. She reports excellent compliance with her noninvasive ventilator. She is not requiring naps. She is not nodding off to sleep unintentionally. She denies any difficulty with dry mouth or mask leaks. She is compliant with supplemental oxygen. Using 2 L per minute at all times. At home she uses a 57 foot hose connected to her oxygen. She notices that with ambulation wearing 2 L/min of supplemental oxygen saturation may drop to 81%. Compliance report for the past 30 days shows 100% compliance with an average use of 9 hours and 7 minutes per night. Current setting is TTV???AVAPS???AE EPAP minimum 5 cm of water, EPAP maximum 15 cmH2O, pressure support 5 cmH2O with a pressure support max of 20 cm of water, target volume 380 mL. Intake Vital Signs 06/13/24 07:43 (more content not included)... Normal [facility] Blood urea nitrogen (BUN)/cr eatinine ratioOrdered By: Evon Ryan on 10-11-2024 Urea nitrogen/Creatinine [Mass ratio] 8.8 mg/mg Low 10-20 [facility] Carbon dioxide measurementOr dered By: Evon Ryan on 10-11-2024 CO2 [Moles/Vol] 31.0 mmol/L 21.0-32.0 [facility] Chloride measurementOrdered By: Evon Ryan on 10-11-2024 Chloride [Moles/Vol] 103 mmol/L 98-107 [facility] Estimated glomerular filtrat ion rate (GFR) AmericanOrdered By: Evon Ryan on 10-11-2024 Estimated GFR (MDRD) Amer 88 mL/min >60 [facility] Comment on above: GFR Calc Glomerular filtration rate ( GFR) estimationOrdered By: Evon Ryan on 10-11-2024 Estimated GFR (MDRD) Non-Af Amer 73 mL/min >60 [facility] Comment on above: Non- GFR Calc GFR/1.73 sq M.predicted among non-blacks MDRD (S/P/Bld) [Vol rate/Area] 73 mL/min/{1.73_m2} >60 [facility] Comment on above: Non- GFR Calc Glucose measurementOrdered B y: Evon Ryan on 10-11-2024 Glucose [Mass/Vol] 130 mg/dL High 74-106 [facility] Comment on above: Fasting Glucose resu lt greater than or equal to 126 mg/dL suggests DIABETES MELLITUS per A.D.A. criteria. Phosphorus measurementOrdere d By: Evon Ryan on 10-11-2024 Phosphorus Level 1.6 mg/dL Low 2.5-4.9 [facility] Potassium measurementOrdered By: Evon Ryan on 10-11-2024 Potassium [Moles/Vol] 3.5 mmol/L 3.5-5.1 [facility] Protein+Creatinine Ratio,Uri neon 10-11-2024 PROT:CRE RATIO 533 mg/g CRE High 0-200 [facility] Comment on above: Performed By: #### L 501.0900, L500.3600 #### [facility] [address] [place], [address] Protein (U) [Mass/Vol] 146.1 mg/dL High <11.9 [facility] Comment on above: Performed By: #### L 501.0900, L500.3600 #### [facility] [address] [place], [address] UR CREAT 274.00 mg/dL Normal NO RANGE EST. [facility] Comment on above: Performed By: #### L 501.0900, L500.3600 #### [facility] [address] [place], [address] Protein/Creatinine (U) [Mass ratio]Ordered By: Evon Ryan on 10-11-2024 Urine Protein/Creatinine Ratio 533 mg/g CRE High 0-200 [facility] Random urine protein measure mentOrdered By: Evon Ryan on 10-11-2024 Protein (U) [Mass/Vol] 146.1 mg/dL High 0.0-11.8 [facility] Renal Profileon 10-11-2024 Albumin [Mass/Vol] 3.4 g/dL Normal 3.2-5.0 [facility] Comment on above: Performed By: #### L 501.0900, L500.3600 #### [facility] [address] [place], [address] BUN/CRE 8.8 RATIO Low 10-20 [facility] Comment on above: Performed By: #### L 501.0900, L500.3600 #### [facility] [address] [place], [address] CA,Total 8.6 mg/dL Normal 8.5-10.1 [facility] Comment on above: Performed By: #### L 501.0900, L500.3600 #### [facility] [address] [place], [address] Chloride [Moles/Vol] 103 mmol/L Normal 98-107 [facility] Comment on above: Performed By: #### L 501.0900, L500.3600 #### [facility] [address] [place], [address] CO2 [Moles/Vol] 31.0 mmol/L Normal 21.0-32.0 [facility] Comment on above: Performed By: #### L 501.0900, L500.3600 #### [facility] [address] [place], [address] Creatinine [Mass/Vol] 0.90 mg/dL Normal 0.55-1.02 [facility] Comment on above: Result Comment: The validity of the calculated GFR GFRAA in patients over 70 years has not been determined. Clinical correlation is essential. Performed By: #### L 501.0900, L500.3600 #### [facility] [address] [place], [address] EST GFR - AA 88 mL/min Normal >60 [facility] Comment on above: Result Comment: Afri can [place] GFR Calc Performed By: #### L 501.0900, L500.3600 #### [facility] [address] [place], [address] GFR/1.73 sq M.predicted among non-blacks MDRD (S/P/Bld) [Vol rate/Area] 73 mL/min/{1.73_m2} Normal >60 [facility] Comment on above: Result Comment: Non- GFR Calc Performed By: #### L 501.0900, L500.3600 #### [facility] [address] [place], [address] Glucose [Mass/Vol] 130 mg/dL High 74-106 [facility] Comment on above: Result Comment: Fast ing Glucose result greater than or equal to 126 mg/dL suggests DIABETES MELLITUS per A.D.A. criteria. Performed By: #### L 501.0900, L500.3600 #### [facility] [address] [place], [address] Phosphate [Mass/Vol] 1.6 mg/dL Low 2.5-4.9 [facility] Comment on above: Performed By: #### L 501.0900, L500.3600 #### [facility] [address] [place], [address] Potassium [Moles/Vol] 3.5 mmol/L Normal 3.5-5.1 [facility] Comment on above: Performed By: #### L 501.0900, L500.3600 #### [facility] [address] [place], [address] Sodium [Moles/Vol] 139 mmol/L Normal 136-145 [facility] Comment on above: Performed By: #### L 501.0900, L500.3600 #### [facility] [address] [place], [place], [address] Urea nitrogen [Mass/Vol] 8 mg/dL Normal - [facility] Comment on above: Performed By: #### L 501.0900, L500.3600 #### [facility] [address] [place], [place], [address] Serum or plasma albumin rashi urement (mass/volume)Ordered By: Evon Ryan on 10-11-2024 Albumin [Mass/Vol] 3.4 g/dL 3.2-5.0 [facility] Serum or plasma calcium rashi urement (mass/volume)Ordered By: Evon Ryan on 10-11-2024 Calcium [Mass/Vol] 8.6 mg/dL 8.5-10.1 [facility] Serum or plasma creatinine m easurement (mass/volume)Ordered By: Evon Ryan on 10-11-2024 Creatinine [Mass/Vol] 0.90 mg/dL 0.55-1.02 [facility] Comment on above: The validity of the calculated GFR & GFRAA in patients over 70 years has not been determined. Clinical correlation is essential. Serum or plasma urea nitroge n measurement (mass/volume)Ordered By: Evon Ryan on 10-11-2024 Urea nitrogen [Mass/Vol] 8 mg/dL -18 [facility] Sodium levelOrdered By: Larry Ryan on 10-11-2024 Sodium [Moles/Vol] 139 mmol/L 136-145 [facility] Urine creatinine measurement (mass/volume)Ordered By: Evon Ryan on 10-11-2024 Creatinine (U) [Mass/Vol] 274.00 mg/dL NO RANGE EST. [facility] Urine protein/creatinine mas s ratioOrdered By: Evon Ryan on 10-11-2024 Protein/Creatinine (U) [Mass ratio] 533 mg/g CRE High 0-200 [facility] Cardiology Visit Reporton Cardiology Visit Report [facility] [place] [facility] [address] [place] [address] OFFICE VISIT Date of Service: 07/18/24 MR#: [id number] Acct: [id number] Name: CLIFTON CAGE Rep #: [id number] : 1980 Provider: Dr. Ketan Nayak MD Age/Sex: 43/F Location: [facility] Status: Signed HPI HPI History of Present Illness Details: This is a 43-year-old white female who presents today for outpatient cardiovascular follow-up. She has a history of PSVT, hyperlipidemia, and hypertension. She follows with nephrology as well. Unfortunately her blood pressure still remains rather elevated From a cardiac standpoint, the patient is doing well. She denies any palpitations, chest pain, pressure or heaviness. She does have SOB-this is nothing new or worsening. She denies Orthopnea, and PND. She does wear 3L of oxygen during the day, and a ventilator/oxygen at night. She does not have bleeding issues; no blood in urine, stool or nosebleeds. She denies any decrease in energy level, myalgias, or claudication. She does not have edema, or sudden weight gain. She does have occasional lightheadedness with quick positional changes. She denies dizziness, syncopal or near syncopal episodes, and headaches. Intake Vital Signs 06/22/23 08:55 06/22/23 09:25 02/03/24 07:58 06/13/24 07:43 07/18/24 09:37 Height 5 ft 8 in 5 ft 8 in 5 ft 8 in 5 ft 8 in 5 ft 8 in Weight: 264 lb BMI 40.1 BP 168/105 H Blood Pressure Location Lt radial Position Sitting Respiration 16 Pulse 81 Pulse Source Monitor Intake Visit Reasons: 1 Y FU Dining Room Host/Hostess Required: No Accompanied by: Is patient in pain?: No Allergies amoxicillin Allergy (Severe, Verified 07/18/24 09:43) Anaphylaxis nabumetone Allergy (Unknown, Verified 07/18/24 09:43) Unknown hydrocodone bitartrate (From [place]) Allergy (Verified 07/18/24 09:43) Itching Penicillins Allergy (Verified 07/18/24 09:43) Swelling carvedilol Adverse Reaction (Severe, Verified 07/18/24 09:43) shortness of breath, chest pain doxycycline Adverse Reaction (Verified 07/18/24 09:43) Itching Medications ???Medication ???Instructions ???Recorded ???Confirmed ???Type gabapentin 100 mg capsule 100 mg PO TID Diabetes 09/24/17 07/18/24 History pantoprazole 40 mg tablet,delayed 40 mg PO DAILY GERD/reflux 11/07/18 07/18/24 History release PEP device #1 ea 10/08/22 06/13/24 Rx blood pressure monitor (Blood #1 ea 10/26/22 06/13/24 Rx Pressure Kit) metoprolol succinate 100 mg 100 mg PO DAILY tachycardia #90 08/11/23 07/18/24 Rx tablet,extended release 24 hr tabs albuterol sulfate 90 mcg/actuation 2 puff inhalation Q6H PRN SOB #8.5 02/03/24 07/18/24 Rx aerosol inhaler grams fluticasone furoate 200 1 inh inhalation DAILY #60 ea 02/03/24 07/18/24 Rx mcg-vilanterol 25 mcg/dose inhalation powder (Breo Ellipta) montelukast 10 mg tablet 10 mg PO QDAY 02/03/24 07/18/24 History atorvastatin 40 mg tablet 40 mg PO QHS #30 tabs 03/23/24 07/18/24 Rx ipratropium 0.5 mg-albuterol 3 mg 3 ml inhalation .QID PRN SOB #180 03/23/24 07/18/24 Rx (2.5 mg base)/3 mL nebulization mL soln hydralazine 50 mg tablet See Rx Instructions .Route 04/27/24 07/18/24 Rx .COMPLEX #240 tabs clonidine 0.2 mg/24 hr weekly 1 patch topical QWEEK 06/13/24 07/18/24 History transdermal patch potassium chloride 10 mEq 10 meq PO BID 06/13/24 07/18/24 History tablet,extended release spironolactone 50 mg tablet 50 mg PO QDAY 06/13/24 07/18/24 History tirzepatide 5 mg/0.5 mL mg subcut 06/13/24 07/18/24 History subcutaneous pen injector (Gregorio) amlodipine 10 mg tablet 10 mg PO BID #90 tabs 07/18/24 07/18/24 Rx dicyclomine 10 mg capsule 10 mg PO .qid IBS 07/18/24 07/18/24 History furosemide 40 mg tablet 40 mg PO QDAY 07/18/24 History irbesartan 150 mg tablet 300 mg PO QDAY 07/18/24 07/18/24 History magnesium oxide 400 mg PO QDAY 07/18/24 07/18/24 History psyllium husk 0.52 gram capsule 0.52 g PO QDAY 07/18/24 07/18/24 History (Fiber-Caps (psyllium husk)) topiramate 100 mg capsule,extended 150 mg PO QDAY 07/18/24 07/18/24 History release 24 hr (Trokendi XR) trazodone 100 mg tablet 100 mg PO QHS Anxiety 07/18/24 07/18/24 History Have you fallen in the past year?: No [facility] Medical History Depression Anxiety Diabetes Bladder disease Low iron Fatty liver Easy bruising Neuropathy Injury of back Migraine headache Seizures Dietary restriction Bowel obstruction Chronic constipation Gastric reflux Central sleep apnea treated with adaptive servo-ventilation (ASV) device History of Holter monitoring History of echocardiogram History of stress test Failure to thrive Hypertension Cardiology follow-up encounter On home oxyge (more content not included)... [facility] 06-20-2024 OV Office Visit (PODIWS ) CLIFTON CAGE ([id number]) 1980 F Date Time Provider Department 06/20/24 11:15 AM RAJIV BAER PODIWS During your visit today, we recorded the following information about you: Nilda Elise, RN 06/20/2024 11:22 AM Signed Patient presents with: Left Foot - New, Diabetic Foot Check Right Foot - New, Diabetic Foot Check Patient present for diabetic foot check. States that she has slight neuropathy that has been getting worse. DINA Rajiv Arceo 06/20/2024 11:22 AM Signed Initial Office Visit Subjective: This 43 year old female presents to clinic for diabetic foot check. Patient has the following complaints: burning in right foot Patient complains of burning in the top of right foot. States that whenever she is on her foot for long duration, she will experience burning. Patient does take gabapentin and that helps but it does make her feel tired so she just takes the gabapentin at night Starting to getting bunion of right foot. Patient admits to being diabetic for 21 years now. Patient +B/T/N in feet at this time. Patient -pain in legs when walking. No other pedal complaints at this time. No change in medications or medical history since last visit. PAIN EVALUATION No data found in the last 1 encounters. Hemoglobin A1C (%) Date Value 03/15/2017 6.3 02/05/2017 6.6 11/23/2016 6.8 08/04/2016 6.7 02/13/2016 6.6 PCP: Kenneth Villanueva DO PAST MEDICAL HISTORY Diagnosis Date Abdominal pain, [...] of both lower extremities with inflammation 08/18/2016 Current Outpatient Medications Medication Sig MOUNJARO 5 mg/0.5 mL pen injector Inject 5 mg subcutaneously one time a week. amitriptyline (ELAVIL) 10 mg tablet TWICE A DAY amLODIPine (NORVASC) 10 mg tablet DAILY atorvastatin (LIPITOR) 40 mg tablet AT BEDTIME FREESTYLE CHARLA 14 DAY SENSOR kit BREO ELLIPTA 200-25 mcg/dose inhaler glipiZIDE (GLUCOTROL) 5 mg tablet Take by mouth. hydrALAZINE (APRESOLINE) 50 mg tablet THREE TIMES A DAY irbesartan (AVAPRO) 150 mg tablet DAILY levothyroxine 150 mcg cap Take by mouth. pantoprazole DR (PROTONIX) 40 mg tablet TROKENDI XR 100 mg capsule 50mg in AM and 100mg at bedtime topiramate XR (TROKENDI XR) 50 mg capsule Take 1 capsule by mouth once daily. gabapentin (NEURONTIN) 100 mg capsule Take 1 capsule by mouth daily at bedtime. For RLS-PRN does not take nightly furosemide (LASIX) 20 mg tablet Take 1 [...] Take 0.5 tablets by mouth once daily. montelukast (SINGULAIR) 10 mg tablet Take 1 tablet by mouth daily at bedtime. omeprazole (PRILOSEC) 20 mg capsule Take 1 capsule by mouth once daily. potassium chloride (K-TAB) 10 mEq tablet Take 4 tablets by mouth once daily. Incontinence Pad, Liner, Disp (PREVAIL BLADDER CONTROL PAD) pads 1 Units as needed. albuterol (PROVENTIL) 2.5 mg /3 mL (0.083 [...] every 6 hours as needed for Nausea/Vomiting. multivitamin,er-wcju-heetbx ls (THERAGRAN M) tab Take 1 tablet by mouth once daily. oseltamivir (TAMIFLU) 75 mg capsule Take 1 capsule by mouth every 12 hours. (Patient not taking: Reported on 11/26/2023) p (more content not included)... Normal [facility] XR FOOT 3V AP/LAT/OBL BILon 06-20-2024 XR FOOT 3V AP/LAT/OBL MICHAEL * * *Final Report* * * DATE OF EXAM: Jun 20 2024 10:20AM [id number] [id number] - XR FOOT 3V AP/LAT/OBL MICHAEL / PROCEDURE REASON: Pain * * * * Physician Interpretation * * * * PROCEDURE: Bilateral feet INDICATION: Pain .diabetic check, has a bunion or corn on medial side of right grt toe no other complaints TECHNIQUE: XR FOOT 3V AP/LAT/OBL MICHAEL COMPARISON: None FINDINGS/ IMPRESSION: Mild right hallux valgus. No fracture or dislocation bilaterally. Joint spaces are maintained. No erosion or focal soft tissue swelling. No cortical destruction. Bilateral plantar and dorsal calcaneal enthesophytes. Junior Net Developer: [email or web address] Transcribe Date/Time: Jun 23 2024 4:40P Dictated by : JODEE FRASER MD This examination was interpreted and the report reviewed and electronically signed by: JODEE FRASER MD on Jun 23 2024 4:41PM EST [id number] Normal [facility] Pulmonary Visit Reporton Pulmonary Visit Report [facility] of [address] [place] [address] OFFICE VISIT Date of Service: 06/13/24 MR#: [id number] Acct: [id number] Name: CLIFTON CAGE Rep #: [id number] : 1980 Provider: OSMANY Lee Age/Sex: 43/F Location: [facility].PMW Status: Signed Assessment and Plan Assessment and Plan (1) Asthma: Status: Chronic Qualifiers: Asthma severity: moderate Asthma complication type: uncomplicated Asthma persistence: persistent Qualified Code(s): J45.40 - Moderate persistent asthma, uncomplicated; J45.40 - Moderate persistent asthma, uncomplicated; J45.40 - Moderate persistent asthma, uncomplicated Plan: Stable, no signs of exacerbation of asthma today. No change in maintenance medications, symptomatically controlled with use of Breo and Singulair. No additional testing at this time. Contact the office with any signs of new or worsening symptoms. Follow-up in 6 months. Influenza vaccination offered, patient reports that she is going to the fair after this and would like to hold off. (2) CHF (congestive heart failure): Status: Chronic Qualifiers: Heart failure type: unspecified Heart failure chronicity: unspecified Qualified Code(s): I50.9 - Heart failure, unspecified Plan: Complicates exam, plan, care and prognosis. (3) Mild intellectual disabilities: Status: Chronic Plan: Complicates exam, plan, care and prognosis. (4) Restrictive lung disease: Status: Chronic Plan: Symptomatically stable at this time. Pulmonary function test also indicates stability. (5) Chronic respiratory failure: Status: Chronic Qualifiers: Respiratory failure complication: hypoxia Qualified Code(s): J96.11 - Chronic respiratory failure with hypoxia Plan: She is using and benefiting from both supplemental oxygen and the noninvasive ventilator. Follow-up in 6 months. (6) Obstructive sleep apnea: Status: Chronic Comment: on trilogy Plan: She is using and benefiting from NIV. No indication for pressure changes. Follow-up in 6 months. Plan Details Follow Up: 6 Months ([facility]) HPI 4 M FU Chief Complaint: Routine follow-up HPI Comments Details: This patient presents to the office today for routine follow-up on her obstructive sleep apnea and restrictive airway disease with chronic hypoxemia. She is ambulatory, currently on supplemental oxygen and accompanied today by her . She has not recently been seen in the ED or urgent care for any respiratory illness. She has not required any antibiotics or prednisone for any breathing problems. She reports excellent compliance with use of Breo. She uses 1 puff daily. She does report rinsing her mouth out after each use. She denies any medication side effects such as sore throat or thrush. She is also compliant with Singulair daily. She is using DuoNebs twice daily. She routinely uses albuterol in the afternoon and before bedtime. Shortness of breath remains problematic only on exertion, this has not progressed. Currently she denies any cough, sputum production or hemoptysis. She denies any wheezing, chest tightness, chest pain or palpitations. She has not had any fever, chills or body aches. She recently has not been using her Acapella device. She reports excellent compliance with her noninvasive ventilator. She is not requiring naps. She is not nodding off to sleep unintentionally. She denies any difficulty with dry mouth or mask leaks. If you recall, she is a lifelong never smoker. Compliance report for the past 30 days shows greater than 80% compliance with her noninvasive ventilator. Leaks do not appear to be a problem. Intake Vital Signs 02/03/24 07:58 06/13/24 07:43 Height 5 ft 8 in 5 ft 8 in Weight: 269 lb BMI 40.8 BP 180/103 H Blood Pressure Location Lt brachial Position Sitting Pulse 80 Pulse Source Monitor Temp 97.7 F L Temperature Source Temporal Artery Pulse Oximetry (%) 97 Oxygen Delivery Method nasal canula Oxygen Flow Rate (L/min) 2 Intake Visit Reasons: 4 M FU Chief Complaint: right hand 5th finger Dining Room Host/Hostess Required: Clarisse DENTON Vendor: Deion Accompanied by: Allergies nabumetone Allergy (Unknown, Verified 06/13/24 10:33) Unknown hydrocodone bitartrate (From [place]) Allergy (Verified 06/13/24 10:33) Itching Penicillins Allergy (Verified 06/13/24 10:33) Swelling carvedilol Adverse Reaction (Severe, Verified 06/13/24 10:33) shortness of breath, chest pain doxycycline Adverse Reaction (Verified 06/13/24 10:33) Itching Medications ???Medication ???Instructions ???Recorded ???Confirmed ???Type gabapentin 100 mg capsule 100 mg PO TID Diabetes 09/24/17 06/13/24 History pantoprazole 40 mg tablet,delayed 40 mg PO DAILY GERD/reflux 11/07/18 06/13/24 History release fluoxetine 4 (more content not included)... Normal [facility] SCRN MAMM (CAD)W/DEVON Carey n 06-01-2024 SCRN MAMM (CAD)W/DEVON [facility] Imaging Services [address] [place] [id number] SCRN MAMM (CAD)W/DEVON BILAT MR#: [id number] Acct: [id number] Name: CLIFTON CAGE Rep #: [id number] : 1980 F 43 From: Mil redd MD PCP: Dr. Kenneth Villanueva DO Status: [facility] Study: SCRN MAMM (CAD)W/DEVON BILAT Date of Exam: 05/05 06/27 Exam# [id number] Ordering Dr: Kenneth Villanueva DO [id number] MAMMOGRAPHY - BILATERAL SCREENING REASON FOR EXAM: Female, 43 years old. Routine annual screening examination. PERTINENT HISTORY: Aunt with breast cancer. TECHNIQUE: Digital bilateral breast devon (3D mammographic acquisition) in the CC and MLO projections. 2-D mediolateral oblique (MLO) and craniocaudad (CC) views of both breasts were obtained. CAD: Full Field Digital Mammography with Computer Added Detection was performed. COMPARISON: Comparison is made with prior study dated May 10, 2023 and May 14, 2023. FINDINGS: Breast Composition: There are scattered areas of fibroglandular density. There are no dominant masses or suspicious calcifications. No other significant abnormalities are identified. There has been no significant change since the prior study. BI/SCRN MAMM (CAD)W/DEVON BILAT IMPRESSION: Stable bilateral screening mammogram. Yearly follow-up mammogram recommended. (A) ASSESSMENT CATEGORY: BIRADS Category 1: Negative. A letter regarding these results will be sent to the patient by the facility within 30 days. Approximately 10% of breast cancers are not detected by mammography. A normal mammogram should not delay biopsy of a clinically suspicious abnormality. [id number] Electronically Signed: Mil Spain MD at 13:46 EDT , CC: Dr. Kenneth Villanueva, DO Junior Net Developer: Signed Normal [facility] CBC W/Diff, Automatedon 03-04 Absolute Lymph 2.18 X10 3/uL Normal 0.83-4.51 [facility] Comment on above: Performed By: #### L 100.0100, L500.4050 #### [facility] [address] [place], [address] Absolute Neut 6.7 X10 3/uL Normal 2.0-7.7 [facility] Comment on above: Performed By: #### L 100.0100, L500.4050 #### [facility] [address] [place], [address] Basophils/100 WBC (Bld) 0.7 % Normal 0-1 [facility] Comment on above: Performed By: #### L 100.0100, L500.4050 #### [facility] [address] [place], [address] Eosinophils/100 WBC (Bld) 0.9 % Normal 0-5 [facility] Comment on above: Performed By: #### L 100.0100, L500.4050 #### [facility] [address] [place], [address] Erythrocyte distribution width (RBC) [Ratio] 13.2 % Normal 11.6-14.6 [facility] Comment on above: Performed By: #### L 100.0100, L500.4050 #### [facility] [address] [place], [address] Hematocrit (Bld) [Volume fraction] 45.5 % Normal 37-47 [facility] Comment on above: Performed By: #### L 100.0100, L500.4050 #### [facility] [address] [place], [address] Hemoglobin (Bld) [Mass/Vol] 15.3 g/dL High 12.0-15.0 [facility] Comment on above: Performed By: #### L 100.0100, L500.4050 #### [facility] [address] [place], [address] IG% 0.300 Normal 0.0-0.9 [facility] Comment on above: Result Comment: IG% - Immature Granulocytes (promyelocytes, myelocytes and metamyelocytes) > 1% indicates that a LEFT SHIFT is Present. Performed By: #### L 100.0100, L500.4050 #### [facility] [address] [place], [address] Lymphocytes/100 WBC (Bld) 22.2 % Normal 19-41 [facility] Comment on above: Performed By: #### L 100.0100, L500.4050 #### [facility] [address] [place], [address] MCH (RBC) [Entitic mass] 28.5 pg Normal 27.0-32.0 [facility] Comment on above: Performed By: #### L 100.0100, L500.4050 #### [facility] [address] [place], [address] MCHC (RBC) [Mass/Vol] 33.6 g/dL Normal 32-36 [facility] Comment on above: Performed By: #### L 100.0100, L500.4050 #### [facility] [address] [place], [address] MCV (RBC) [Entitic vol] 84.7 fL Normal 81-99 [facility] Comment on above: Performed By: #### L 100.0100, L500.4050 #### [facility] [address] [place], [address] Monocytes/100 WBC (Bld) 8.1 % Normal 0-10 [facility] Comment on above: Performed By: #### L 100.0100, L500.4050 #### [facility] [address] [place], [address] Neutrophils/100 WBC (Bld) 67.8 % Normal 47-70 [facility] Comment on above: Performed By: #### L 100.0100, L500.4050 #### [facility] [address] [place], [address] Nucleated RBC (Bld) [#/Vol] 0 10*3/uL Normal 0-5 [facility] Comment on above: Performed By: #### L 100.0100, L500.4050 #### [facility] [address] [place], [address] Platelet mean volume (Bld) [Entitic vol] 9.7 fL Normal 6.2-12.0 [facility] Comment on above: Performed By: #### L 100.0100, L500.4050 #### [facility] [address] [place], [address] Platelets (Bld) [#/Vol] 282 10*3/uL Normal 150-450 [facility] Comment on above: Performed By: #### L 100.0100, L500.4050 #### [facility] [address] [place], [address] RBC (Bld) [#/Vol] 5.37 10*6/uL Normal 4.2-5.4 [facility] Comment on above: Performed By: #### L 100.0100, L500.4050 #### [facility] [address] [place], [address] RDW SD 40.7 fl Normal 35.1-43.9 [facility] Comment on above: Performed By: #### L 100.0100, L500.4050 #### [facility] [address] [place], [address] WBC (Bld) [#/Vol] 9.8 10*3/uL Normal 4.4-11.0 [facility] Comment on above: Performed By: #### L 100.0100, L500.4050 #### [facility] [address] [place], [address] Comprehensive Metabolic Prof ilon 03-15-2024 Albumin [Mass/Vol] 3.6 g/dL Normal 3.2-5.0 [facility] Comment on above: Performed By: #### L 100.0100, L500.4050 #### [facility] [address] [place], [address] Albumin/Globulin [Mass ratio] 0.9 {ratio} Normal 0.9-2.4 [facility] Comment on above: Performed By: #### L 100.0100, L500.4050 #### [facility] [address] [place], [address] ALK P 115 U/L Normal 45-117 [facility] Comment on above: Performed By: #### L 100.0100, L500.4050 #### [facility] [address] [place], [address] ALT [Catalytic activity/Vol] 76 U/L High 13-56 [facility] Comment on above: Performed By: #### L 100.0100, L500.4050 #### [facility] [address] [place], [address] AST [Catalytic activity/Vol] 47 U/L High 15-37 [facility] Comment on above: Performed By: #### L 100.0100, L500.4050 #### [facility] [address] [place], [address] Bilirubin [Mass/Vol] 0.50 mg/dL Normal 0.20-1.00 [facility] Comment on above: Result Comment: For patients on eltrombopag therapy, use of Dimension Hymera TBIL is not recommended. Performed By: #### L 100.0100, L500.4050 #### [facility] [address] [place], [address] BUN/CRE 11.6 RATIO Normal 10-20 [facility] Comment on above: Performed By: #### L 100.0100, L500.4050 #### [facility] [address] [place], [address] CA,Total 9.1 mg/dL Normal 8.5-10.1 [facility] Comment on above: Performed By: #### L 100.0100, L500.4050 #### [facility] [address] [place], [address] Chloride [Moles/Vol] 97 mmol/L Low 98-107 [facility] Comment on above: Performed By: #### L 100.0100, L500.4050 #### [facility] [address] [place], [address] CO2 [Moles/Vol] 27.0 mmol/L Normal 21.0-32.0 [facility] Comment on above: Performed By: #### L 100.0100, L500.4050 #### [facility] [address] [place], [address] Creatinine [Mass/Vol] 0.78 mg/dL Normal 0.55-1.02 [facility] Comment on above: Result Comment: The validity of the calculated GFR GFRAA in patients over 70 years has not been determined. Clinical correlation is essential. Performed By: #### L 100.0100, L500.4050 #### [facility] [address] [place], [address] EST GFR - AA 105 mL/min Normal >60 [facility] Comment on above: Result Comment: Afri can Tristanian GFR Calc Performed By: #### L 100.0100, L500.4050 #### [facility] [address] [place], [address] GAP 7 Normal 5-15 [facility] Comment on above: Performed By: #### L 100.0100, L500.4050 #### [facility] [address] [place], [address] GFR/1.73 sq M.predicted among non-blacks MDRD (S/P/Bld) [Vol rate/Area] 87 mL/min/{1.73_m2} Normal >60 [facility] Comment on above: Result Comment: Non- GFR Calc Performed By: #### L 100.0100, L500.4050 #### [facility] [address] [place], [address] Globulin (S) [Mass/Vol] 4.2 g/dL Normal 2.2-4.2 [facility] Comment on above: Performed By: #### L 100.0100, L500.4050 #### [facility] [address] [place], [address] Glucose [Mass/Vol] 293 mg/dL High 74-106 [facility] Comment on above: Result Comment: Gluc ose result greater than or equal to 200 mg/dL suggests DIABETES MELLITUS per A.D.A. criteria. Performed By: #### L 100.0100, L500.4050 #### [facility] [address] [place], [address] Potassium [Moles/Vol] 3.7 mmol/L Normal 3.5-5.1 [facility] Comment on above: Performed By: #### L 100.0100, L500.4050 #### [facility] [address] [place], [address] Sodium [Moles/Vol] 131 mmol/L Low 136-145 [facility] Comment on above: Performed By: #### L 100.0100, L500.4050 #### [facility] [address] [place], [address] T PROT 7.8 g/dL Normal 6.4-8.2 [facility] Comment on above: Performed By: #### L 100.0100, L500.4050 #### [facility] [address] [place], [address] Urea nitrogen [Mass/Vol] 9 mg/dL Normal 7-18 [facility] Comment on above: Performed By: #### L 100.0100, L500.4050 #### [facility] [address] [place], [address] Bacteria identified Respirat ory culture Nom (Unsp spec)Ordered By: Flori Lee on 02-04-2024 Respiratory Culture Moraxella Catarrhalis [facility] Gram stain for investigation of transfusion reactionOrdered By: Flori Lee on 02-04-2024 Microscopic observation Gram stain Nom (Unsp spec) [facility] Absolute lymphocyte countOrd ered By: Maria A Hurtado on 11-26-2023 Lymphocytes Auto (Unsp spec) [#/Vol] 3.28 10*3/uL 0.83-4.51 [facility] Automated lymphocyte count a s percentage of total leukocytesOrdered By: Maria A Hurtado on 11-26-2023 Lymphocytes/100 WBC Auto (Unsp spec) 27.0 % 19-41 [facility] Basophil percentageOrdered B y: Maria A Hurtado on 11-26-2023 Basophils/100 WBC (Bld) 0.4 % 0-1 [facility] Chloride [Moles/Vol] 104 mmol/L 98-107 [facility] Eosinophils/100 WBC (Bld) 0.5 % 0-5 [facility] Glucose [Mass/Vol] 225 mg/dL 74-106 [facility] Comment on above: Glucose result great er than or equal to 200 mg/dLsuggests DIABETES MELLITUS per A.D.A. criteria. Hemoglobin (Bld) [Mass/Vol] 14.7 g/dL 12.0-15.0 [facility] Monocytes/100 WBC (Bld) 7.7 % 0-10 [facility] Neutrophils (Bld) [#/Vol] 7.7 10*3/uL 2.0-7.7 [facility] Neutrophils/100 WBC (Bld) 63.2 % 47-70 [facility] Potassium [Moles/Vol] 3.2 mmol/L 3.5-5.1 [facility] Comment on above: Slight Hemolysis, Re sult may be falsely increased. Sodium [Moles/Vol] 140 mmol/L 136-145 [facility] WBC (Bld) [#/Vol] 12.1 10*3/uL 4.4-11.0 [facility] Determination of erythrocyte mean corpuscular volume (MCV)Ordered By: Maria A Hurtado on 11-26-2023 MCV (RBC) [Entitic vol] 81.8 fL 81-99 [facility] Erythrocyte distribution wid th ratioOrdered By: Maria A Hurtado on 11-26-2023 Erythrocyte distribution width (RBC) [Ratio] 13.2 % 11.6-14.6 [facility] Erythrocyte distribution wid th standard deviationOrdered By: Maria A Hurtado on 11-26-2023 Erythrocyte distribution width (RBC) [Entitic vol] 39.2 fL 35.1-43.9 [facility] Hematocrit Auto (Bld) [Volum e fraction]Ordered By: Maria A Hurtado on 11-26-2023 Hematocrit (Bld) [Volume fraction] 44.6 % 37-47 [facility] Immature granulocytes/100 WB C Auto (Bld)Ordered By: Maria A Hurtado on 11-26-2023 Immature granulocytes/100 WBC (Bld) 1.200 % 0.0-0.9 [facility] Comment on above: IG% - Immature Granu locytes (promyelocytes, myelocytes and metamyelocytes) > 1% indicates that a LEFT SHIFT is Present. Laboratory - Chemistry and C hemistry - challengeOrdered By: Maria A Hurtado on 11-26-2023 CO2 [Moles/Vol] 32.0 mmol/L 21.0-32.0 [facility] Urea nitrogen/Creatinine [Mass ratio] 11.0 mg/mg 10-20 [facility] Laboratory - Hematology and Cell countsOrdered By: Maria A Hurtado on 11-26-2023 MCH (RBC) [Entitic mass] 27.0 pg 27.0-32.0 [facility] MCHC (RBC) [Mass/Vol] 33.0 g/dL 32-36 [facility] Nucleated RBC/100 WBC (Bld) [Ratio] 0 % 0-5 [facility] Platelet mean volume (Bld) [Entitic vol] 9.2 fL 6.2-12.0 [facility] Platelets (Bld) [#/Vol] 243 10*3/uL 150-450 [facility] No Panel InformationOrdered By: Maria A Hurtado on 11-26-2023 Estimated Creatinine Clearance Calc 111.40 ml/min [facility] Estimated GFR (MDRD) Amer 88 mL/min >60 [facility] Comment on above: GFR Calc Estimated GFR (MDRD) Non-Af Amer 72 mL/min >60 [facility] Comment on above: Non- GFR Calc RBC Auto (Bld) [#/Vol]Ordere d By: Maria A Hurtado on 11-26-2023 RBC (Bld) [#/Vol] 5.45 10*6/uL 4.2-5.4 [facility] Serum or plasma calcium rsahi urement (mass/volume)Ordered By: Maria A Hurtado on 11-26-2023 Calcium [Mass/Vol] 8.7 mg/dL 8.5-10.1 [facility] Serum or plasma creatinine m easurement (mass/volume)Ordered By: Maria A Hurtado on 11-26-2023 Creatinine [Mass/Vol] 0.91 mg/dL 0.55-1.02 [facility] Comment on above: The validity of the calculated GFR & GFRAA in patients over 70 years has not been determined. Clinical correlation is essential. Serum or plasma urea nitroge n measurement (mass/volume)Ordered By: Maria A Hurtado on 11-26-2023 Urea nitrogen [Mass/Vol] 10 mg/dL 7-18 [facility] Thin prep Papanicolaou smear with manual screeningOrdered By: Maria A Hurtado on 11-26-2023 Thin prep Papanicolaou smear with manual screening 4 5-15 [facility] Laboratory - Microbiology an d Antimicrobial susceptibilityOrdered By: Steven Pollard on 11-17-2023 SARS-CoV-2 (COVID-19) RNA GURPREET+probe Ql (Unsp spec) Influenzae A [facility] SARS-CoV-2 (COVID-19) RNA GURPREET+probe Ql (Unsp spec) Influenzae A [facility] Absolute lymphocyte countOrd ered By: Ifeanyi Hernandez on 10-09-2023 Lymphocytes Auto (Unsp spec) [#/Vol] 0.91 10*3/uL 0.83-4.51 [facility] Basophil percentageOrdered B y: Ifeanyi Hernandez on 10-09-2023 Basophils/100 WBC (Bld) 0.3 % 0-1 [facility] Bilirubin [Mass/Vol] 0.90 mg/dL 0.20-1.00 [facility] Comment on above: For patients on eltr ombopag therapy, use of Dimension Hymera TBIL is not recommended. Chloride [Moles/Vol] 101 mmol/L 98-107 [facility] Eosinophils/100 WBC (Bld) 0.1 % 0-5 [facility] Glucose [Mass/Vol] 190 mg/dL 74-106 [facility] Comment on above: Fasting Glucose resu lt greater than or equal to 126 mg/dL suggests DIABETES MELLITUS per A.D.A. criteria. Neutrophils (Bld) [#/Vol] 13.9 10*3/uL 2.0-7.7 [facility] Neutrophils/100 WBC (Bld) 89.6 % 47-70 [facility] Potassium [Moles/Vol] 3.9 mmol/L 3.5-5.1 [facility] Protein [Mass/Vol] 8.6 g/dL 6.4-8.2 [facility] Sodium [Moles/Vol] 137 mmol/L 136-145 [facility] WBC (Bld) [#/Vol] 15.5 10*3/uL 4.4-11.0 [facility] Blood erythrocytes count (nu mber/volume)Ordered By: Ifeanyi Hernandez on 10-09-2023 RBC (Bld) [#/Vol] 6.01 10*6/uL 4.2-5.4 [facility] Blood hemoglobin measurement (mass/volume)Ordered By: Ifeanyi Hernandez on 10-09-2023 Hemoglobin (Bld) [Mass/Vol] 16.2 g/dL 12.0-15.0 [facility] Blood lymphocytes/100 leukoc ytesOrdered By: Ifeanyi Hernandez on 10-09-2023 Lymphocytes/100 WBC (Bld) 5.9 % 19-41 [facility] Blood monocytes/100 leukocyt esOrdered By: Ifeanyi Hernandez on 10-09-2023 Monocytes/100 WBC (Bld) 3.7 % 0-10 [facility] Blood platelet mean volumeOr dered By: Ifeanyi Hernandez on 10-09-2023 Platelet mean volume (Bld) [Entitic vol] 9.9 fL 6.2-12.0 [facility] Determination of erythrocyte mean corpuscular volume (MCV)Ordered By: Ifeanyi Hernandez on 10-09-2023 MCV (RBC) [Entitic vol] 81.7 fL 81-99 [facility] Direct bilirubinOrdered By: Ifeanyi Hernandez on 10-09-2023 Bilirubin.direct [Mass/Vol] 0.20 mg/dL 0.00-0.30 [facility] Hematocrit Auto (Bld) [Volum e fraction]Ordered By: Ifeanyi Hernandez on 10-09-2023 Hematocrit (Bld) [Volume fraction] 49.1 % 37-47 [facility] Laboratory - Chemistry and C hemistry - challengeOrdered By: Ifeanyi Hernandez on 10-09-2023 ALP [Catalytic activity/Vol] 87 U/L 45-117 [facility] ALT [Catalytic activity/Vol] 63 U/L 13-56 [facility] CO2 [Moles/Vol] 28.0 mmol/L 21.0-32.0 [facility] Globulin (S) [Mass/Vol] 4.7 g/dL 2.2-4.2 [facility] Lipase [Catalytic activity/Vol] 25 U/L 13-75 [facility] Comment on above: Please note:LIPASE r evised reference range effective 23. New Lipase methodology. Expected to produce lower values than the previous assay method. NEW Reference Range: 13 - 75 U/L Urea nitrogen/Creatinine [Mass ratio] 12.8 mg/mg 10-20 [facility] Laboratory - Hematology and Cell countsOrdered By: Ifeanyi Hernandez on 10-09-2023 Erythrocyte distribution width (RBC) [Entitic vol] 38.7 fL 35.1-43.9 [facility] Erythrocyte distribution width (RBC) [Ratio] 13.5 % 11.6-14.6 [facility] Immature granulocytes/100 WBC (Bld) 0.400 % 0.0-0.9 [facility] Comment on above: IG% - Immature Granu locytes (promyelocytes, myelocytes and metamyelocytes) > 1% indicates that a LEFT SHIFT is Present. MCH (RBC) [Entitic mass] 27.0 pg 27.0-32.0 [facility] Nucleated RBC/100 WBC (Bld) [Ratio] 0 % 0-5 [facility] MCHC Auto (RBC) [Mass/Vol]Or dered By: Ifeanyi Hernandez on 10-09-2023 MCHC (RBC) [Mass/Vol] 33.0 g/dL 32-36 [facility] No Panel InformationOrdered By: Ifeanyi Hernandez on 10-09-2023 Estimated GFR (MDRD) Amer 66 mL/min >60 [facility] Comment on above: GFR Calc Estimated GFR (MDRD) Non-Af Amer 54 mL/min >60 [facility] Comment on above: Non- GFR Calc Platelets bldOrdered By: Jermaine Hernandez on 10-09-2023 Platelets (Bld) [#/Vol] 271 10*3/uL 150-450 [facility] Serum or plasma albumin rashi urement (mass/volume)Ordered By: Ifeanyi Hernandez on 10-09-2023 Albumin [Mass/Vol] 3.9 g/dL 3.2-5.0 [facility] Serum or plasma calcium rashi urement (mass/volume)Ordered By: Ifeanyi Hernandez on 10-09-2023 Calcium [Mass/Vol] 9.5 mg/dL 8.5-10.1 [facility] Serum or plasma creatinine m easurement (mass/volume)Ordered By: Ifeanyi Hernandez on 10-09-2023 Creatinine [Mass/Vol] 1.17 mg/dL 0.55-1.02 [facility] Comment on above: The validity of the calculated GFR & GFRAA in patients over 70 years has not been determined. Clinical correlation is essential. Serum or plasma urea nitroge n measurement (mass/volume)Ordered By: Ifeanyi Hernandez on 10-09-2023 Urea nitrogen [Mass/Vol] 15 mg/dL 7-18 [facility] Thin prep Papanicolaou smear with manual screeningOrdered By: Ifeanyi Hernandez on 10-09-2023 Thin prep Papanicolaou smear with manual screening 37 U/L 15-37 [facility] Thin prep Papanicolaou smear with manual screening 8 5-15 [facility] Basophil percentageOrdered B y: Norma Dunn on 09-01-2023 Bilirubin [Mass/Vol] 0.50 mg/dL 0.20-1.00 [facility] Comment on above: For patients on eltr ombopag therapy, use of Dimension Hymera TBIL is not recommended. Cholesterol [Mass/Vol] 175 mg/dL <200 [facility] Comment on above: <200 mg/dL Desirable 200-240 mg/dL Borderline >240 mg/dL High Risk Protein [Mass/Vol] 7.8 g/dL 6.4-8.2 [facility] Triglyceride [Mass/Vol] 159 mg/dL <199 [facility] Comment on above: The drugs N-Acetylcy steine and Metamizole may falsely depress this assay.Serum Triglycerides Reference Interval Normal <150 mg/dL Borderline high 150 - 199 mg/dL High 200 - 499 mg/dL Very High > or = 500 mg/dL Basophil percentageOrdered B y: Evon Ryan on 09-01-2023 Chloride [Moles/Vol] 102 mmol/L 98-107 [facility] Glucose [Mass/Vol] 177 mg/dL 74-106 [facility] Comment on above: Fasting Glucose resu lt greater than or equal to 126 mg/dL suggests DIABETES MELLITUS per A.D.A. criteria. Potassium [Moles/Vol] 3.7 mmol/L 3.5-5.1 [facility] Sodium [Moles/Vol] 139 mmol/L 136-145 [facility] Direct bilirubinOrdered By: Norma Dunn on 09-01-2023 Bilirubin.direct [Mass/Vol] 0.11 mg/dL 0.00-0.30 [facility] Laboratory - Chemistry and C hemistry - challengeOrdered By: Norma Dunn on 09-01-2023 ALP [Catalytic activity/Vol] 93 U/L 45-117 [facility] ALT [Catalytic activity/Vol] 44 U/L 13-56 [facility] Globulin (S) [Mass/Vol] 4.2 g/dL 2.2-4.2 [facility] Laboratory - Chemistry and C hemistry - challengeOrdered By: Evon Ryan on 09-01-2023 CO2 [Moles/Vol] 32.0 mmol/L 21.0-32.0 [facility] Urea nitrogen/Creatinine [Mass ratio] 10.8 mg/mg 10-20 [facility] No Panel InformationOrdered By: Evon Ryan on 09-01-2023 Estimated GFR (MDRD) Amer 86 mL/min >60 [facility] Comment on above: GFR Calc Estimated GFR (MDRD) Non-Af Amer 71 mL/min >60 [facility] Comment on above: Non- GFR Calc Serum or plasma albumin rashi urement (mass/volume)Ordered By: Norma Dunn on 09-01-2023 Albumin [Mass/Vol] 3.6 g/dL 3.2-5.0 [facility] Serum or plasma calcium rashi urement (mass/volume)Ordered By: Evon Ryan on 09-01-2023 Calcium [Mass/Vol] 9.0 mg/dL 8.5-10.1 [facility] Serum or plasma cholesterol in HDL measurement (mass/volume)Ordered By: Norma Dunn on 09-01-2023 Cholesterol in HDL [Mass/Vol] 43 mg/dL >40 [facility] Comment on above: The drugs N-Acetylcy steine and Metamizole may falsely depress this assay. Reference Range HDL <40 mg/dL Low HDL Cholesterol HDL >or= 60 mg/dL High HDL Cholesterol Serum or plasma cholesterol in VLDL measurement (mass/volume)Ordered By: Norma Dunn on 09-01-2023 Cholesterol in VLDL [Mass/Vol] 32 mg/dL 5-40 [facility] Serum or plasma creatinine m easurement (mass/volume)Ordered By: Evon Ryan on 09-01-2023 Creatinine [Mass/Vol] 0.92 mg/dL 0.55-1.02 [facility] Comment on above: The validity of the calculated GFR & GFRAA in patients over 70 years has not been determined. Clinical correlation is essential. Serum or plasma low density lipoprotein (LDL) cholesterol measurement (mass/volume)Ordered By: Norma Dunn on 09-01-2023 Cholesterol in LDL [Mass/Vol] 100 mg/dL 0-130 [facility] Serum or plasma urea nitroge n measurement (mass/volume)Ordered By: Evon Ryan on 09-01-2023 Urea nitrogen [Mass/Vol] 10 mg/dL 7-18 [facility] Thin prep Papanicolaou smear with manual screeningOrdered By: Norma Dunn on 09-01-2023 Thin prep Papanicolaou smear with manual screening 22 U/L 15-37 [facility] Thin prep Papanicolaou smear with manual screeningOrdered By: Evon Ryan on 09-01-2023 Thin prep Papanicolaou smear with manual screening 5 5-15 [facility] XR DIGIT GENERAL 3V FRONTAL/ LAT/OBL RIGHTon 05-31-2023 [facility] Absolute lymphocyte countOrd ered By: Steven Pollard on 04-27-2023 Lymphocytes Auto (Unsp spec) [#/Vol] 1.81 10*3/uL 0.83-4.51 [facility] Basophil percentageOrdered B y: Steven Pollard on 04-27-2023 Basophils/100 WBC (Bld) 0.4 % 0-1 [facility] Chloride [Moles/Vol] 105 mmol/L 98-107 [facility] Eosinophils/100 WBC (Bld) 0.5 % 0-5 [facility] Glucose [Mass/Vol] 180 mg/dL 74-106 [facility] Comment on above: Fasting Glucose resu lt greater than or equal to 126 mg/dL suggests DIABETES MELLITUS per A.D.A. criteria. Neutrophils (Bld) [#/Vol] 8.1 10*3/uL 2.0-7.7 [facility] Neutrophils/100 WBC (Bld) 75.6 % 47-70 [facility] Potassium [Moles/Vol] 3.5 mmol/L 3.5-5.1 [facility] Sodium [Moles/Vol] 138 mmol/L 136-145 [facility] WBC (Bld) [#/Vol] 10.7 10*3/uL 4.4-11.0 [facility] Blood erythrocytes count (nu mber/volume)Ordered By: Steven Pollard on 04-27-2023 RBC (Bld) [#/Vol] 5.34 10*6/uL 4.2-5.4 [facility] Blood hemoglobin measurement (mass/volume)Ordered By: Steven Pollard on 04-27-2023 Hemoglobin (Bld) [Mass/Vol] 14.5 g/dL 12.0-15.0 [facility] Blood lymphocytes/100 leukoc ytesOrdered By: Steven Pollard on 04-27-2023 Lymphocytes/100 WBC (Bld) 16.9 % 19-41 [facility] Blood monocytes/100 leukocyt esOrdered By: Steven Pollard on 04-27-2023 Monocytes/100 WBC (Bld) 6.3 % 0-10 [facility] Blood platelet mean volumeOr dered By: Steven Pollard on 04-27-2023 Platelet mean volume (Bld) [Entitic vol] 9.8 fL 6.2-12.0 [facility] Determination of erythrocyte mean corpuscular volume (MCV)Ordered By: Steven Pollard on 04-27-2023 MCV (RBC) [Entitic vol] 82.0 fL 81-99 [facility] Hematocrit Auto (Bld) [Volum e fraction]Ordered By: Steven Pollard on 04-27-2023 Hematocrit (Bld) [Volume fraction] 43.8 % 37-47 [facility] Laboratory - Chemistry and C hemistry - challengeOrdered By: Steven Pollard on 04-27-2023 CO2 [Moles/Vol] 26.0 mmol/L 21.0-32.0 [facility] Urea nitrogen/Creatinine [Mass ratio] 12.0 mg/mg 10-20 [facility] Laboratory - Hematology and Cell countsOrdered By: Steven Pollard on 04-27-2023 Erythrocyte distribution width (RBC) [Entitic vol] 37.9 fL 35.1-43.9 [facility] Erythrocyte distribution width (RBC) [Ratio] 12.8 % 11.6-14.6 [facility] Immature granulocytes/100 WBC (Bld) 0.300 % 0.0-0.9 [facility] Comment on above: IG% - Immature Granu locytes (promyelocytes, myelocytes and metamyelocytes) > 1% indicates that a LEFT SHIFT is Present. MCH (RBC) [Entitic mass] 27.2 pg 27.0-32.0 [facility] Nucleated RBC/100 WBC (Bld) [Ratio] 0 % 0-5 [facility] MCHC Auto (RBC) [Mass/Vol]Or dered By: Steven Pollard on 04-27-2023 MCHC (RBC) [Mass/Vol] 33.1 g/dL 32-36 [facility] No Panel InformationOrdered By: Steven Pollard on 04-27-2023 Estimated Creatinine Clearance Calc 75.44 ml/min [facility] Estimated GFR (MDRD) Amer 79 mL/min >60 [facility] Comment on above: GFR Calc Estimated GFR (MDRD) Non-Af Amer 65 mL/min >60 [facility] Comment on above: Non- GFR Calc Platelets bldOrdered By: Joseph Pollard on 04-27-2023 Platelets (Bld) [#/Vol] 235 10*3/uL 150-450 [facility] Serum or plasma calcium rashi urement (mass/volume)Ordered By: Steven Pollard on 04-27-2023 Calcium [Mass/Vol] 8.9 mg/dL 8.5-10.1 [facility] Serum or plasma creatinine m easurement (mass/volume)Ordered By: Steven Pollard on 04-27-2023 Creatinine [Mass/Vol] 1.00 mg/dL 0.55-1.02 [facility] Comment on above: The validity of the calculated GFR & GFRAA in patients over 70 years has not been determined. Clinical correlation is essential. Serum or plasma urea nitroge n measurement (mass/volume)Ordered By: Steven Pollard on 04-27-2023 Urea nitrogen [Mass/Vol] 12 mg/dL 7-18 [facility] Thin prep Papanicolaou smear with manual screeningOrdered By: Steven Pollard on 04-27-2023 Thin prep Papanicolaou smear with manual screening 7 5-15 [facility] Culture, urineOrdered By: Taya Arevalo on 02-19-2023 Bacteria identified Cx Nom (U) Positive [facility] Bacteria identified Cx Nom (U) Streptococcus agalactiae (B) [facility] Laboratory - Chemistry and C hemistry - challengeon 02-19-2023 Bilirubin Ql (U) Negative [facility] Glucose Ql (U) Negative [facility] Ketones Ql (U) Negative [facility] pH (U) 6.5 [pH] [facility] Specific gravity (U) [Rel density] 1.010 [facility] Urobilinogen (U) [Mass/Vol] Negative [facility] Laboratory - Hematology and Cell countson 02-19-2023 Hemoglobin Ql (U) [facility] Laboratory - Specimen inform ationon 02-19-2023 Clarity (U) Cloudy [facility] Color (U) YELLOW [facility] Laboratory - Urinalysison Nitrite Ql (U) Negative [facility] Protein Ql (U) 1+ [facility] No Panel Informationon 02-19 Urine Leukocytes Positive [facility] Urine Non-Hemolyzed Blood [facility] Basophil percentageOrdered B y: Dr. Arevalo on 02-02-2023 Bilirubin [Mass/Vol] 0.90 mg/dL 0.20-1.00 [facility] Comment on above: For patients on eltr ombopag therapy, use of Dimension Hymera TBIL is not recommended. Chloride [Moles/Vol] 100 mmol/L 98-107 [facility] Glucose [Mass/Vol] 128 mg/dL 74-106 [facility] Comment on above: Fasting Glucose resu lt greater than or equal to 126 mg/dL suggests DIABETES MELLITUS per A.D.A. criteria. Potassium [Moles/Vol] 3.8 mmol/L 3.5-5.1 [facility] Protein [Mass/Vol] 8.1 g/dL 6.4-8.2 [facility] Sodium [Moles/Vol] 137 mmol/L 136-145 [facility] Glucose Glucometer (BldC) [M ass/Vol]Ordered By: Dr. Arevalo on 02-02-2023 Glucose [Mass/Vol] 132 mg/dL 74-106 [facility] Comment on above: MANAGEMENT OF PATIEN T CARE PER NURSING PROTOCOL Laboratory - Chemistry and C hemistry - challengeOrdered By: Dr. Arevalo on 02-02-2023 ALP [Catalytic activity/Vol] 85 U/L 45-117 [facility] ALT [Catalytic activity/Vol] 42 U/L 13-56 [facility] CO2 [Moles/Vol] 28.0 mmol/L 21.0-32.0 [facility] Globulin (S) [Mass/Vol] 4.0 g/dL 2.2-4.2 [facility] Urea nitrogen/Creatinine [Mass ratio] 10.5 mg/mg 10-20 [facility] No Panel InformationOrdered By: Dr. Arevalo on 02-02-2023 Estimated Creatinine Clearance Calc 79.41 ml/min [facility] Estimated GFR (MDRD) Amer 84 mL/min >60 [facility] Comment on above: GFR Calc Estimated GFR (MDRD) Non-Af Amer 69 mL/min >60 [facility] Comment on above: Non- GFR Calc Serum or plasma albumin rashi urement (mass/volume)Ordered By: Dr. Arevalo on 02-02-2023 Albumin [Mass/Vol] 4.1 g/dL 3.2-5.0 [facility] Serum or plasma albumin/glob ulin mass ratioOrdered By: Dr. Arevalo on 02-02-2023 Albumin/Globulin [Mass ratio] 1.0 {ratio} 0.9-2.4 [facility] Serum or plasma calcium rashi urement (mass/volume)Ordered By: Dr. Arevalo on 02-02-2023 Calcium [Mass/Vol] 9.6 mg/dL 8.5-10.1 [facility] [facility] Serum or plasma creatinine m easurement (mass/volume)Ordered By: Dr. Arevalo on 02-02-2023 Creatinine [Mass/Vol] 0.95 mg/dL 0.55-1.02 [facility] Comment on above: The validity of the calculated GFR & GFRAA in patients over 70 years has not been determined. Clinical correlation is essential. Serum or plasma urea nitroge n measurement (mass/volume)Ordered By: Dr. Arevalo on 02-02-2023 Urea nitrogen [Mass/Vol] 10 mg/dL 7-18 [facility] Thin prep Papanicolaou smear with manual screeningOrdered By: Dr. Arevalo on 02-02-2023 Thin prep Papanicolaou smear with manual screening 20 U/L 15-37 [facility] Thin prep Papanicolaou smear with manual screening 9 5-15 [facility] Absolute lymphocyte countOrd ered By: Dr. Arevalo on 01-29-2023 Lymphocytes Auto (Unsp spec) [#/Vol] 3.46 10*3/uL 0.83-4.51 [facility] Basophil percentageOrdered B y: Dr. Arevalo on 01-29-2023 Basophils/100 WBC (Bld) 0.5 % 0-1 [facility] Eosinophils/100 WBC (Bld) 1.0 % 0-5 [facility] Neutrophils (Bld) [#/Vol] 5.4 10*3/uL 2.0-7.7 [facility] Neutrophils/100 WBC (Bld) 53.9 % 47-70 [facility] WBC (Bld) [#/Vol] 9.9 10*3/uL 4.4-11.0 [facility] Blood erythrocytes count (nu mber/volume)Ordered By: Dr. Arevalo on 01-29-2023 RBC (Bld) [#/Vol] 5.36 10*6/uL 4.2-5.4 [facility] Blood hemoglobin measurement (mass/volume)Ordered By: Dr. Arevalo on 01-29-2023 Hemoglobin (Bld) [Mass/Vol] 14.9 g/dL 12.0-15.0 [facility] Blood lymphocytes/100 leukoc ytesOrdered By: Dr. Arevalo on 01-29-2023 Lymphocytes/100 WBC (Bld) 34.8 % 19-41 [facility] Blood monocytes/100 leukocyt esOrdered By: Dr. Arevalo on 01-29-2023 Monocytes/100 WBC (Bld) 9.4 % 0-10 [facility] Blood platelet mean volumeOr dered By: Dr. Arevalo on 01-29-2023 Platelet mean volume (Bld) [Entitic vol] 9.7 fL 6.2-12.0 [facility] Determination of erythrocyte mean corpuscular volume (MCV)Ordered By: Dr. Arevalo on 01-29-2023 MCV (RBC) [Entitic vol] 82.5 fL 81-99 [facility] Hematocrit Auto (Bld) [Volum e fraction]Ordered By: Dr. Arevalo on 01-29-2023 Hematocrit (Bld) [Volume fraction] 44.2 % 37-47 [facility] Laboratory - Chemistry and C hemistry - challengeOrdered By: Dr. Arevalo on 01-29-2023 Free T4 [Mass/Vol] 1.14 ng/dL 0.76-1.46 [facility] Laboratory - Hematology and Cell countsOrdered By: Dr. Arevalo on 01-29-2023 Erythrocyte distribution width (RBC) [Entitic vol] 39.7 fL 35.1-43.9 [facility] Erythrocyte distribution width (RBC) [Ratio] 13.4 % 11.6-14.6 [facility] Immature granulocytes/100 WBC (Bld) 0.400 % 0.0-0.9 [facility] Comment on above: IG% - Immature Granu locytes (promyelocytes, myelocytes and metamyelocytes) > 1% indicates that a LEFT SHIFT is Present. MCH (RBC) [Entitic mass] 27.8 pg 27.0-32.0 [facility] Nucleated RBC/100 WBC (Bld) [Ratio] 0 % 0-5 [facility] MCHC Auto (RBC) [Mass/Vol]Or dered By: Dr. Arevalo on 01-29-2023 MCHC (RBC) [Mass/Vol] 33.7 g/dL 32-36 [facility] No Panel InformationOrdered By: Dr. Arevalo on 01-29-2023 Follicle Stimulating Hormone 8.3 mIU/mL [facility] Comment on above: NORMAL REFERENCE RAN GES FEMALE FOLLICULAR 2.3 - 12.6 mIU/mL MID-CYCLE PEAK 5.2 - 17.5 mIU/mL LUTEAL 1.7 - 12.9 mIU/mL POST-MENOPAUSAL ON MHT 5.9 - 72.8 mIU/mL NOT ON MHT 12.7 - 132.2 mlU/mL MALE 0.7 - 10.8 mIU/mL Thyroid Stimulating Hormone (TSH) 2.34 uIU/mL 0.358-3.74 [facility] Platelets bldOrdered By: Dr. Arevalo on 01-29-2023 Platelets (Bld) [#/Vol] 343 10*3/uL 150-450 [facility] Serum or plasma estradiol (E 2) measurement (mass/volume)Ordered By: Dr. Arevalo on 01-29-2023 E2 [Mass/Vol] 26.4 pg/mL [facility] Comment on above: NORMAL REFERENCE RAN GES FEMALE FOLLICULAR 21.4 - 164.8 pg/mL MID-CYCLE PEAK 49.9 - 367.2 pg/mL LUTEAL 40.2 - 259.0 pg/mL POST-MENOPAUSAL ON MHT <11.0 - 462.1 pg/mL NOT ON MHT <11.0 - 58.3 pg/mL MALE <11.0 - 52.5 pg/mL NOTE:[employer] HAS CONFIRMED THE DRUG FULVETRANT (FASLODEX) MAY CAUSE FALSELY ELEVATED ESTRADIOL RESULTS WHEN USING THIS TEST METHOD. IF PATIENT IS TAKING FULVESTRANT AN ALTERNATIVE METHOD SHOULD BE USED TO DETERMINE ESTRADIOL CONCENTRATION. Absolute lymphocyte countOrd ered By: Dr. Pollard on 11-27-2022 Lymphocytes Auto (Unsp spec) [#/Vol] 1.27 10*3/uL 0.83-4.51 [facility] Basophil percentageOrdered B y: Dr. Pollard on 11-27-2022 Basophils/100 WBC (Bld) 0.6 % 0-1 [facility] Chloride [Moles/Vol] 104 mmol/L 98-107 [facility] Eosinophils/100 WBC (Bld) 2.0 % 0-5 [facility] Glucose [Mass/Vol] 187 mg/dL 74-106 [facility] Comment on above: Fasting Glucose resu lt greater than or equal to 126 mg/dL suggests DIABETES MELLITUS per A.D.A. criteria. Neutrophils (Bld) [#/Vol] 4.4 10*3/uL 2.0-7.7 [facility] Neutrophils/100 WBC (Bld) 66.8 % 47-70 [facility] Potassium [Moles/Vol] 3.5 mmol/L 3.5-5.1 [facility] Sodium [Moles/Vol] 137 mmol/L 136-145 [facility] WBC (Bld) [#/Vol] 6.5 10*3/uL 4.4-11.0 [facility] Blood erythrocytes count (nu mber/volume)Ordered By: Dr. Pollard on 11-27-2022 RBC (Bld) [#/Vol] 4.80 10*6/uL 4.2-5.4 [facility] Blood hemoglobin measurement (mass/volume)Ordered By: Dr. Pollard on 11-27-2022 Hemoglobin (Bld) [Mass/Vol] 13.5 g/dL 12.0-15.0 [facility] Blood lymphocytes/100 leukoc ytesOrdered By: Dr. Pollard on 11-27-2022 Lymphocytes/100 WBC (Bld) 19.5 % 19-41 [facility] Blood monocytes/100 leukocyt esOrdered By: Dr. Pollard on 11-27-2022 Monocytes/100 WBC (Bld) 10.6 % 0-10 [facility] Blood platelet mean volumeOr dered By: Dr. Pollard on 11-27-2022 Platelet mean volume (Bld) [Entitic vol] 9.7 fL 6.2-12.0 [facility] Determination of erythrocyte mean corpuscular volume (MCV)Ordered By: Dr. Pollard on 11-27-2022 MCV (RBC) [Entitic vol] 84.6 fL 81-99 [facility] Hematocrit Auto (Bld) [Volum e fraction]Ordered By: Dr. Pollard on 11-27-2022 Hematocrit (Bld) [Volume fraction] 40.6 % 37-47 [facility] Laboratory - Chemistry and C hemistry - challengeOrdered By: Dr. Pollard on 11-27-2022 CO2 [Moles/Vol] 27.0 mmol/L 21.0-32.0 [facility] Urea nitrogen/Creatinine [Mass ratio] 8.3 mg/mg 10-20 [facility] Laboratory - Hematology and Cell countsOrdered By: Dr. Pollard on 11-27-2022 Erythrocyte distribution width (RBC) [Entitic vol] 41.2 fL 35.1-43.9 [facility] Erythrocyte distribution width (RBC) [Ratio] 13.4 % 11.6-14.6 [facility] Immature granulocytes/100 WBC (Bld) 0.500 % 0.0-0.9 [facility] Comment on above: IG% - Immature Granu locytes (promyelocytes, myelocytes and metamyelocytes) > 1% indicates that a LEFT SHIFT is Present. MCH (RBC) [Entitic mass] 28.1 pg 27.0-32.0 [facility] Nucleated RBC/100 WBC (Bld) [Ratio] 0 % 0-5 [facility] MCHC Auto (RBC) [Mass/Vol]Or dered By: Dr. Pollard on 11-27-2022 MCHC (RBC) [Mass/Vol] 33.3 g/dL 32-36 [facility] No Panel InformationOrdered By: Dr. Pollard on 11-27-2022 Estimated Creatinine Clearance Calc 81.41 ml/min [facility] Estimated GFR (MDRD) Amer 83 mL/min >60 [facility] Comment on above: GFR Calc Estimated GFR (MDRD) Non-Af Amer 68 mL/min >60 [facility] Comment on above: Non- GFR Calc Platelets bldOrdered By: Dr. Pollard on 11-27-2022 Platelets (Bld) [#/Vol] 201 10*3/uL 150-450 [facility] Serum or plasma calcium rashi urement (mass/volume)Ordered By: Dr. Pollard on 11-27-2022 Calcium [Mass/Vol] 9.2 mg/dL 8.5-10.1 [facility] Serum or plasma creatinine m easurement (mass/volume)Ordered By: Dr. Pollard on 11-27-2022 Creatinine [Mass/Vol] 0.96 mg/dL 0.55-1.02 [facility] Comment on above: The validity of the calculated GFR & GFRAA in patients over 70 years has not been determined. Clinical correlation is essential. Serum or plasma urea nitroge n measurement (mass/volume)Ordered By: Dr. Pollard on 11-27-2022 Urea nitrogen [Mass/Vol] 8 mg/dL 7-18 [facility] Thin prep Papanicolaou smear with manual screeningOrdered By: Dr. Pollard on 11-27-2022 Thin prep Papanicolaou smear with manual screening 6 5-15 [facility] Thin prep Papanicolaou smear with manual screeningOrdered By: Felicai Gonzalez on 10-29-2022 Genital Culture Gardnerella vaginalis [facility] Gram stain for investigation of transfusion reactionOrdered By: Felicia Gonzalez on 10-27-2022 Microscopic observation Gram stain Nom (Unsp spec) [facility] Chlamydia trachomatis rRNA d etection by probe and target amplification methodOrdered By: Felicia Gonzalez on 10-26-2022 C. trachomatis rRNA GURPREET+probe Ql (Unsp spec) Negative Negative [facility] Laboratory - Microbiology an d Antimicrobial susceptibilityOrdered By: Felicia Gonzalez on 10-26-2022 N. gonorrhoeae DNA GURPREET+probe Ql (Unsp spec) Negative Negative [facility] Comment on above: Performed at: [address] [id number] Director: Lizette Marin MD, Phone: [phone] Absolute lymphocyte countOrd ered By: Dr. Tejada on 10-20-2022 Lymphocytes Auto (Unsp spec) [#/Vol] 2.06 10*3/uL 0.83-4.51 [facility] Basophil percentageOrdered B y: Dr. Tejada on 10-20-2022 Basophils/100 WBC (Bld) 0.2 % 0-1 [facility] Eosinophils/100 WBC (Bld) 0.9 % 0-5 [facility] Neutrophils (Bld) [#/Vol] 6.9 10*3/uL 2.0-7.7 [facility] Neutrophils/100 WBC (Bld) 69.6 % 47-70 [facility] WBC (Bld) [#/Vol] 9.9 10*3/uL 4.4-11.0 [facility] Basophil percentage 0 SEEN /hpf 0-5 [facility] Bilirubin [Mass/Vol] 0.70 mg/dL 0.20-1.00 [facility] Comment on above: For patients on eltr ombopag therapy, use of Dimension [place]mer[place] TBIL is not recommended. Chloride [Moles/Vol] 103 mmol/L 98-107 [facility] Glucose [Mass/Vol] 201 mg/dL 74-106 [facility] Comment on above: Glucose result great er than or equal to 200 mg/dLsuggests DIABETES MELLITUS per A.D.A. criteria. Potassium [Moles/Vol] 3.5 mmol/L 3.5-5.1 [facility] Protein [Mass/Vol] 7.5 g/dL 6.4-8.2 [facility] Sodium [Moles/Vol] 137 mmol/L 136-145 [facility] Beta hCG serum qualOrdered B y: Dr. Tejada on 10-20-2022 Beta HCG ( test) Ql Negative [facility] Bilirubin Test strip Ql (U)O rdered By: Dr. Tejada on 10-20-2022 Bilirubin Ql (U) 1 mg/dL Negative [facility] Comment on above: COLOR OF URINE MAY A FFECT DIPSTICK RESULTS. Blood erythrocytes count (nu mber/volume)Ordered By: Dr. Tejada on 10-20-2022 RBC (Bld) [#/Vol] 5.04 10*6/uL 4.2-5.4 [facility] Blood hemoglobin measurement (mass/volume)Ordered By: Dr. Tejada on 10-20-2022 Hemoglobin (Bld) [Mass/Vol] 14.2 g/dL 12.0-15.0 [facility] Blood lymphocytes/100 leukoc ytesOrdered By: Dr. Tejada on 10-20-2022 Lymphocytes/100 WBC (Bld) 20.8 % 19-41 [facility] Blood monocytes/100 leukocyt esOrdered By: Dr. Tejada on 10-20-2022 Monocytes/100 WBC (Bld) 8.0 % 0-10 [facility] Blood platelet mean volumeOr dered By: Dr. Tejada on 10-20-2022 Platelet mean volume (Bld) [Entitic vol] 9.3 fL 6.2-12.0 [facility] Determination of erythrocyte mean corpuscular volume (MCV)Ordered By: Dr. Tejada on 10-20-2022 MCV (RBC) [Entitic vol] 86.1 fL 81-99 [facility] Hematocrit Auto (Bld) [Volum e fraction]Ordered By: Dr. Tejada on 10-20-2022 Hematocrit (Bld) [Volume fraction] 43.4 % 37-47 [facility] INR in Blood by Coagulation assayOrdered By: Dr. Tejada on 10-20-2022 INR Coag (Bld) [Relative time] 1.0 {INR} [facility] Ketones Test strip Ql (U)Ord ered By: Dr. Tejada on 10-20-2022 Ketones Ql (U) 15 mg/dl Negative [facility] Laboratory - Chemistry and C hemistry - challengeOrdered By: Dr. Tejada on 10-20-2022 ALP [Catalytic activity/Vol] 91 U/L 45-117 [facility] ALT [Catalytic activity/Vol] 54 U/L 13-56 [facility] CO2 [Moles/Vol] 28.0 mmol/L 21.0-32.0 [facility] Globulin (S) [Mass/Vol] 4.2 g/dL 2.2-4.2 [facility] Urea nitrogen/Creatinine [Mass ratio] 17.8 mg/mg 10-20 [facility] Laboratory - CoagulationOrde red By: Dr. Tejada on 10-20-2022 aPTT Coag (Bld) [Time] 25.5 s 24.1-36.2 [facility] Coag (PPP) [Time] 13.3 s 11.7-14.9 [facility] Laboratory - Hematology and Cell countsOrdered By: Dr. Tejada on 10-20-2022 Erythrocyte distribution width (RBC) [Entitic vol] 40.7 fL 35.1-43.9 [facility] Erythrocyte distribution width (RBC) [Ratio] 13.1 % 11.6-14.6 [facility] Immature granulocytes/100 WBC (Bld) 0.500 % 0.0-0.9 [facility] Comment on above: IG% - Immature Granu locytes (promyelocytes, myelocytes and metamyelocytes) > 1% indicates that a LEFT SHIFT is Present. MCH (RBC) [Entitic mass] 28.2 pg 27.0-32.0 [facility] Nucleated RBC/100 WBC (Bld) [Ratio] 0 % 0-5 [facility] MCHC Auto (RBC) [Mass/Vol]Or dered By: Dr. Tejada on 10-20-2022 MCHC (RBC) [Mass/Vol] 32.7 g/dL 32-36 [facility] Mucus LM Ql (Urine sed)Order ed By: Dr. Tejada on 10-20-2022 Mucus Ql (Urine sed) 0 SEEN /hpf [facility] Nitrite Test strip Ql (U)Ord ered By: Dr. Tejada on 10-20-2022 Nitrite Ql (U) Positive Negative [facility] No Panel InformationOrdered By: Dr. Tejada on 10-20-2022 Estimated Creatinine Clearance Calc 78.56 ml/min [facility] Estimated GFR (MDRD) Amer 89 mL/min >60 [facility] Comment on above: GFR Calc Estimated GFR (MDRD) Non-Af Amer 74 mL/min >60 [facility] Comment on above: Non- GFR Calc Platelets bldOrdered By: Dr. Tejada on 10-20-2022 Platelets (Bld) [#/Vol] 165 10*3/uL 150-450 [facility] Protein Test strip Ql (U)Ord ered By: Dr. Tejada on 10-20-2022 Protein Ql (U) 500 mg/dl Negative [facility] Serum or plasma albumin rashi urement (mass/volume)Ordered By: Dr. Tejada on 10-20-2022 Albumin [Mass/Vol] 3.3 g/dL 3.2-5.0 [facility] Serum or plasma albumin/glob ulin mass ratioOrdered By: Dr. Tejada on 10-20-2022 Albumin/Globulin [Mass ratio] 0.8 {ratio} 0.9-2.4 [facility] Serum or plasma calcium rashi urement (mass/volume)Ordered By: Dr. Tejada on 10-20-2022 Calcium [Mass/Vol] 8.6 mg/dL 8.5-10.1 [facility] Serum or plasma creatinine m easurement (mass/volume)Ordered By: Dr. Tejada on 10-20-2022 Creatinine [Mass/Vol] 0.90 mg/dL 0.55-1.02 [facility] Comment on above: The validity of the calculated GFR & GFRAA in patients over 70 years has not been determined. Clinical correlation is essential. Serum or plasma urea nitroge n measurement (mass/volume)Ordered By: Dr. Tejada on 10-20-2022 Urea nitrogen [Mass/Vol] 16 mg/dL 7-18 [facility] Squamous epithelial cells de tection in urine sediment by light microscopyOrdered By: Dr. Tejada on 10-20-2022 Epithelial cells.squamous LM Ql (Urine sed) 0 SEEN /hpf 5-10 [facility] Thin prep Papanicolaou smear with manual screeningOrdered By: Dr. Tejada on 10-20-2022 Thin prep Papanicolaou smear with manual screening 26 U/L 15-37 [facility] Thin prep Papanicolaou smear with manual screening 6 5-15 [facility] Urine blood detectionOrdered By: Dr. Tejada on 10-20-2022 RBC Ql (U) 250 /ul Negative [facility] RBC Ql (U) > 100 SEEN /hpf 0-5 [facility] Comment on above: Microscopic field is filled. Other elements may be obscured. Urine clarityOrdered By: Dr. Tejada on 10-20-2022 Clarity (U) Turbid Clear [facility] Urine color determinationOrd ered By: Dr. Tejada on 10-20-2022 Color (U) Red Yellow [facility] Urine glucose detectionOrder ed By: Dr. Tejada on 10-20-2022 Glucose Ql (U) 100 mg/dl Normal [facility] Urine leukocyte esterase det ection by dipstickOrdered By: Dr. Tejada on 10-20-2022 Leukocyte esterase Test strip Ql (U) 25 /ul Negative [facility] Urine pHOrdered By: Dr. Ranjit cunningham on 10-20-2022 pH (U) 6.5 [pH] 5.0 - 8.0 [facility] Urine sediment bacteria coun t by microscopy (number/high power field)Ordered By: Dr. Tejada on 10-20-2022 Bacteria LM.HPF (Urine sed) [#/Area] 0 /[HPF] None Seen [facility] Urine specific gravity measu rementOrdered By: Dr. Tejada on 10-20-2022 Specific gravity (U) [Rel density] 1.025 1.002-1.03 0 [facility] Urobilinogen Auto test strip Ql (U)Ordered By: Dr. Tejada on 10-20-2022 Urobilinogen Ql (U) Normal mg/dl Normal [facility] Basophil percentageOrdered B y: Flori Lee on 10-08-2022 Chloride [Moles/Vol] 103 mmol/L 98-107 [facility] Glucose [Mass/Vol] 138 mg/dL 74-106 [facility] Comment on above: Fasting Glucose resu lt greater than or equal to 126 mg/dL suggests DIABETES MELLITUS per A.D.A. criteria. Potassium [Moles/Vol] 3.5 mmol/L 3.5-5.1 [facility] Sodium [Moles/Vol] 137 mmol/L 136-145 [facility] Laboratory - Chemistry and C hemistry - challengeOrdered By: Flori Lee on 10-08-2022 CO2 [Moles/Vol] 28.0 mmol/L 21.0-32.0 [facility] Natriuretic peptide B (Bld) [Mass/Vol] 83.2 pg/mL 0-100 [facility] Urea nitrogen/Creatinine [Mass ratio] 10.1 mg/mg 10-20 [facility] No Panel InformationOrdered By: Flori Lee on 10-08-2022 Estimated GFR (MDRD) Amer 90 mL/min >60 [facility] Comment on above: GFR Calc Estimated GFR (MDRD) Non-Af Amer 74 mL/min >60 [facility] Comment on above: Non- GFR Calc Serum or plasma calcium rashi urement (mass/volume)Ordered By: Flori Lee on 10-08-2022 Calcium [Mass/Vol] 8.7 mg/dL 8.5-10.1 [facility] Serum or plasma creatinine m easurement (mass/volume)Ordered By: Flori Lee on 10-08-2022 Creatinine [Mass/Vol] 0.89 mg/dL 0.55-1.02 [facility] Comment on above: The validity of the calculated GFR & GFRAA in patients over 70 years has not been determined. Clinical correlation is essential. Serum or plasma urea nitroge n measurement (mass/volume)Ordered By: Flori Lee on 10-08-2022 Urea nitrogen [Mass/Vol] 9 mg/dL 7-18 [facility] Thin prep Papanicolaou smear with manual screeningOrdered By: Flori Lee on 10-08-2022 Thin prep Papanicolaou smear with manual screening 6 5-15 [facility] Basophil percentageOrdered B y: Norma Dunn on 08-14-2022 Bilirubin [Mass/Vol] 0.50 mg/dL 0.20-1.00 [facility] Comment on above: For patients on eltr ombopag therapy, use of Dimension [place] TBIL is not recommended. Cholesterol [Mass/Vol] 195 mg/dL <200 [facility] Comment on above: <200 mg/dL Desirable 200-240 mg/dL Borderline >240 mg/dL High Risk Protein [Mass/Vol] 7.7 g/dL 6.4-8.2 [facility] Triglyceride [Mass/Vol] 189 mg/dL <199 [facility] Comment on above: The drugs N-Acetylcy steine and Metamizole may falsely depress this assay.Serum Triglycerides Reference Interval Normal <150 mg/dL Borderline high 150 - 199 mg/dL High 200 - 499 mg/dL Very High > or = 500 mg/dL Direct bilirubinOrdered By: Norma Dunn on 08-14-2022 Bilirubin.direct [Mass/Vol] 0.12 mg/dL 0.00-0.30 [facility] Laboratory - Chemistry and C hemistry - challengeOrdered By: Norma Dunn on 08-14-2022 ALP [Catalytic activity/Vol] 97 U/L 45-117 [facility] ALT [Catalytic activity/Vol] 96 U/L 13-56 [facility] Globulin (S) [Mass/Vol] 4.2 g/dL 2.2-4.2 [facility] Serum or plasma albumin rashi urement (mass/volume)Ordered By: Norma Dunn on 08-14-2022 Albumin [Mass/Vol] 3.5 g/dL 3.2-5.0 [facility] Serum or plasma cholesterol in HDL measurement (mass/volume)Ordered By: Norma Dunn on 08-14-2022 Cholesterol in HDL [Mass/Vol] 37 mg/dL >40 [facility] Comment on above: The drugs N-Acetylcy steine and Metamizole may falsely depress this assay. Reference Range HDL <40 mg/dL Low HDL Cholesterol HDL >or= 60 mg/dL High HDL Cholesterol Serum or plasma cholesterol in VLDL measurement (mass/volume)Ordered By: Norma Dunn on 08-14-2022 Cholesterol in VLDL [Mass/Vol] 38 mg/dL 5-40 [facility] Serum or plasma low density lipoprotein (LDL) cholesterol measurement (mass/volume)Ordered By: Norma Dunn on 08-14-2022 Cholesterol in LDL [Mass/Vol] 120 mg/dL 0-130 [facility] Thin prep Papanicolaou smear with manual screeningOrdered By: Norma Dunn on 08-14-2022 Thin prep Papanicolaou smear with manual screening 64 U/L 15-37 [facility] Absolute lymphocyte countOrd ered By: Norma Dunn on 06-25-2022 Lymphocytes Auto (Unsp spec) [#/Vol] 2.05 10*3/uL 0.83-4.51 [facility] Basophil percentageOrdered B y: Norma Dunn on 06-25-2022 Basophils/100 WBC (Bld) 0.3 % 0-1 [facility] Eosinophils/100 WBC (Bld) 1.3 % 0-5 [facility] Neutrophils (Bld) [#/Vol] 7.8 10*3/uL 2.0-7.7 [facility] Neutrophils/100 WBC (Bld) 70.6 % 47-70 [facility] WBC (Bld) [#/Vol] 11.1 10*3/uL 4.4-11.0 [facility] Blood erythrocytes count (nu mber/volume)Ordered By: Norma Dunn on 06-25-2022 RBC (Bld) [#/Vol] 5.28 10*6/uL 4.2-5.4 [facility] Blood hemoglobin measurement (mass/volume)Ordered By: Norma Dunn on 06-25-2022 Hemoglobin (Bld) [Mass/Vol] 14.5 g/dL 12.0-15.0 [facility] Blood lymphocytes/100 leukoc ytesOrdered By: Norma Dunn on 06-25-2022 Lymphocytes/100 WBC (Bld) 18.5 % 19-41 [facility] Blood monocytes/100 leukocyt esOrdered By: Norma Dunn on 06-25-2022 Monocytes/100 WBC (Bld) 8.8 % 0-10 [facility] Blood platelet mean volumeOr dered By: Norma Dunn on 06-25-2022 Platelet mean volume (Bld) [Entitic vol] 9.8 fL 6.2-12.0 [facility] Determination of erythrocyte mean corpuscular volume (MCV)Ordered By: Norma Dunn on 06-25-2022 MCV (RBC) [Entitic vol] 85.8 fL 81-99 [facility] Hematocrit Auto (Bld) [Volum e fraction]Ordered By: Norma Dunn on 06-25-2022 Hematocrit (Bld) [Volume fraction] 45.3 % 37-47 [facility] Laboratory - Hematology and Cell countsOrdered By: Norma Dunn on 06-25-2022 Erythrocyte distribution width (RBC) [Entitic vol] 41.0 fL 35.1-43.9 [facility] Erythrocyte distribution width (RBC) [Ratio] 13.2 % 11.6-14.6 [facility] Immature granulocytes/100 WBC (Bld) 0.500 % 0.0-0.9 [facility] Comment on above: IG% - Immature Granu locytes (promyelocytes, myelocytes and metamyelocytes) > 1% indicates that a LEFT SHIFT is Present. MCH (RBC) [Entitic mass] 27.5 pg 27.0-32.0 [facility] Nucleated RBC/100 WBC (Bld) [Ratio] 0 % 0-5 [facility] MCHC Auto (RBC) [Mass/Vol]Or dered By: Norma Dunn on 06-25-2022 MCHC (RBC) [Mass/Vol] 32.0 g/dL 32-36 [facility] No Panel InformationOrdered By: Norma Dunn on 06-25-2022 Thyroid Stimulating Hormone (TSH) 1.88 uIU/mL 0.358-3.74 [facility] Platelets bldOrdered By: Israel Dunn on 06-25-2022 Platelets (Bld) [#/Vol] 251 10*3/uL 150-450 [facility] Basophil percentageon 2021 Chloride [Moles/Vol] 102 mmol/L 98-107 [facility] Work Phone: Glucose [Mass/Vol] 168 mg/dL 74-106 [facility] Work Phone: Comment on above: Fasting Glucose resu lt greater than or equal to 126 mg/dL suggests DIABETES MELLITUS per A.D.A. criteria. Potassium [Moles/Vol] 3.6 mmol/L 3.5-5.1 [facility] Work Phone: Sodium [Moles/Vol] 138 mmol/L 136-145 [facility] Work Phone: Laboratory - Chemistry and C hemistry - challengeon 06-06-2022 CO2 [Moles/Vol] 33.0 mmol/L 21.0-32.0 [facility] Work Phone: Urea nitrogen/Creatinine [Mass ratio] 11.0 mg/mg 10-20 [facility] Work Phone: No Panel Informationon 06-06 Estimated GFR (MDRD) Amer 88 mL/min >60 [facility] Work Phone: Comment on above: GFR Calc Estimated GFR (MDRD) Non-Af Amer 73 mL/min >60 [facility] Work Phone: Comment on above: Non- GFR Calc Urine Microalbumin/Creatinin e Ratio 819.1 mg/g CRE <30 [facility] Work Phone: Serum or plasma calcium rashi urement (mass/volume)on 06-06-2022 Calcium [Mass/Vol] 8.7 mg/dL 8.5-10.1 [facility] Work Phone: Serum or plasma creatinine m easurement (mass/volume)on 06-06-2022 Creatinine [Mass/Vol] 0.91 mg/dL 0.55-1.02 [facility] Work Phone: Comment on above: The validity of the calculated GFR & GFRAA in patients over 70 years has not been determined. Clinical correlation is essential. Serum or plasma urea nitroge n measurement (mass/volume)on 06-06-2022 Urea nitrogen [Mass/Vol] 10 mg/dL 7-18 [facility] Work Phone: Thin prep Papanicolaou smear with manual screeningon 06-06-2022 Thin prep Papanicolaou smear with manual screening 3 5-15 [facility] Work Phone: Thin prep Papanicolaou smear with manual screening 1540.0 mg/L NO RANGE EST. [facility] Work Phone: Urine creatinine measurement (mass/volume)on 06-06-2022 Creatinine (U) [Mass/Vol] 188.00 mg/dL NO RANGE EST. [facility] Work Phone: Urine protein measurement (m ass/volume)on 06-06-2022 Protein (U) [Mass/Vol] 232.1 mg/dL 0.0-11.8 [facility] Work Phone: Urine protein/creatinine mas s ratioon 06-06-2022 Protein/Creatinine (U) [Mass ratio] 1235 mg/g CRE 0-200 [facility] Work Phone: MALBRon 10-12-2018 U Creatinine 312.0 mg/dL Normal [facility] ([place]) Comment on above: Performed By: #### C MP, GFR, BHB, INSLN, CPEP ####[address] [address]#### IPROIN ####[facility] [place], [place] [address] U Microalb 44552 mcg/dL Normal [facility] ([place]) Comment on above: Performed By: #### C MP, GFR, BHB, INSLN, CPEP ####[address] [address]#### IPROIN ####[place] [address] [place], [place] [address] U Ratio Alb/Cre 73.9 mcg/mg High 0.0-24.9 [facility] ([place]) Comment on above: Performed By: #### C MP, GFR, BHB, INSLN, CPEP ####[place] [address]#### IPROIN ####[facility] [place], [place] [address] .GFRon 10-11-2018 GFR 107 ml/min/1.73sqm Normal [facility] ([place]) Comment on above: Result Comment: GFR Population mean for , Non- Americans Ages 20-29 = 116 mL/min/1.73 sq.m. Ages 30-39 = 107 mL/min/1.73 sq.m. Ages 40-49 = 99 mL/min/1.73 sq.m. Ages 50-59 = 93 mL/min/1.73 sq.m. Ages 60-69 = 85 mL/min/1.73 sq.m. Ages 70+ = 75 mL/min/1.73 sq.m.Chronic Kidney Disease: Less than 60 mL/min/1.73 square metersEnd Stage Renal Disease: Less than 15 mL/min/1.73 square meters Performed By: #### C MP, GFR, BHB, INSLN, CPEP ####[place] [address]#### IPROIN ####[facility] [place], [place] [address] GFR Non- 88 ml/min/1.73sqm Normal [facility] ([place]) Comment on above: Result Comment: GFR Population mean for , Non- Americans Ages 20-29 = 116 mL/min/1.73 sq.m. Ages 30-39 = 107 mL/min/1.73 sq.m. Ages 40-49 = 99 mL/min/1.73 sq.m. Ages 50-59 = 93 mL/min/1.73 sq.m. Ages 60-69 = 85 mL/min/1.73 sq.m. Ages 70+ = 75 mL/min/1.73 sq.m.Chronic Kidney Disease: Less than 60 mL/min/1.73 square metersEnd Stage Renal Disease: Less than 15 mL/min/1.73 square meters Performed By: #### C MP, GFR, BHB, INSLN, CPEP ####[place] [address]#### IPROIN ####[facility] [place], [place] [address] A1Con 10-11-2018 Hemoglobin A1c/Hemoglobin.total mass fraction (Bld) 6.4 % High 4.5-6.2 [facility] ([place]) Comment on above: Performed By: #### A 1C, TSH, LIPID, CMP, GFR ####[place] [address] CMPon 10-11-2018 Albumin mass conc 3.7 G/dL Normal 3.5-5.0 [facility] ([place]) Comment on above: Performed By: #### C MP, GFR, BHB, INSLN, CPEP ####[place] [address]#### IPROIN ####[place] [address] [place], [place] [address] Albumin/Globulin mass ratio 1.0 {ratio} Low 1.1-2.5 [facility] ([place] Comment on above: Performed By: #### C MP, GFR, BHB, INSLN, CPEP ####[place] [address]#### IPROIN ####[facility] [place], [place] [address] ALP enzyme act/vol 65 U/L Normal 40-135 [facility] ([place]) Comment on above: Performed By: #### C MP, GFR, BHB, INSLN, CPEP ####[place] [address]#### IPROIN ####[facility] [place], [place] [address] ALT enzyme act/vol 63 U/L High 10-35 [facility] ([place]) Comment on above: Performed By: #### C MP, GFR, BHB, INSLN, CPEP ####[place] [address]#### IPROIN ####[facility] [place] [address] AST enzyme act/vol 36 U/L Normal 10-40 [facility] ([place]) Comment on above: Performed By: #### C MP, GFR, BHB, INSLN, CPEP ####[place] [address]#### IPROIN ####[place] [address] [place] [address] Bili Total 0.5 mg/dL Normal 0.2-1.0 [facility] ([place] Comment on above: Performed By: #### C MP, GFR, BHB, INSLN, CPEP ####[place] [address]#### IPROIN ####[place] [address] [place] [address] Calcium mass conc 9.2 mg/dL Normal 8.4-10.2 [facility] ([place] Comment on above: Performed By: #### C MP, GFR, BHB, INSLN, CPEP ####[place] [address]#### IPROIN ####[facility] [place] [address] Chloride molar conc 103 mmol/L Normal 98-107 [facility] ([place]) Comment on above: Performed By: #### C MP, GFR, BHB, INSLN, CPEP ####[place] [address]#### IPROIN ####[facility] [place], [place] [address] CO2 molar conc 30 mmol/L High 22-29 [facility] ([place] Comment on above: Performed By: #### C MP, GFR, BHB, INSLN, CPEP ####[place] [address]#### IPROIN ####[place] [address] [place] [address] Creatinine mass conc 0.75 mg/dL Normal 0.55-1.02 [facility] ([place]) Comment on above: Performed By: #### C MP, GFR, BHB, INSLN, CPEP ####[place] [address]#### IPROIN ####[facility] [place] [address] Electrolyte Balance 8.0 mEq/L Normal [facility] ([place] Comment on above: Performed By: #### C MP, GFR, BHB, INSLN, CPEP ####[place] [address]#### IPROIN ####[place] [address] [place] [address] Globulin Calculated mass conc (S) 3.6 G/dL Normal [facility] ([place] Comment on above: Performed By: #### C MP, GFR, BHB, INSLN, CPEP ####[place] [address]#### IPROIN ####[place] [address] [place] [address] Glucose mass conc 96 mg/dL Normal 70-105 [facility] ([place] Comment on above: Performed By: #### C MP, GFR, BHB, INSLN, CPEP ####[place] [address]#### IPROIN ####[place] [address] [place] [address] Potassium molar conc 4.3 mmol/L Normal 3.5-5.1 [facility] ([place] Comment on above: Performed By: #### C MP, GFR, BHB, INSLN, CPEP ####[place] [address]#### IPROIN ####[facility] [place] [address] Protein mass conc 7.3 G/dL Normal 6.4-8.2 [facility] ([place] Comment on above: Performed By: #### C MP, GFR, BHB, INSLN, CPEP ####[address] [address]#### IPROIN ####[place] [address] [place], [place] [address] Sodium molar conc 141 mmol/L Normal 136-145 [facility] ([place] Comment on above: Performed By: #### C MP, GFR, BHB, INSLN, CPEP ####[address] [address]#### IPROIN ####[facility] [place], [place] [address] Urea nitrogen mass conc 11 mg/dL Normal 7-18 [facility] ([place] Comment on above: Performed By: #### C MP, GFR, BHB, INSLN, CPEP ####[place] [address]#### IPROIN ####[address] [address] Urea nitrogen/Creatinine mass ratio 15 ratio Normal 7-27 [facility] ([place] Comment on above: Performed By: #### C MP, GFR, BHB, INSLN, CPEP ####[place] [address]#### IPROIN ####[facility] [place], [place] [address] LIPIDon 10-11-2018 Cholesterol in HDL mass conc 32 mg/dL Low 40-60 [facility] ([place] Comment on above: Performed By: #### A 1C, TSH, LIPID, CMP, GFR ####[address] [address] Cholesterol in LDL mass conc 139 mg/dL High 0-130 [facility] ([place] Comment on above: Performed By: #### A 1C, TSH, LIPID, CMP, GFR ####[address] [address] Cholesterol mass conc 208 mg/dL High 0-200 [facility] ([place]) Comment on above: Result Comment: Chol esterol Reference Interval:Less than 200 [id number] Borderline high [id number] and above High risk Performed By: #### A 1C, TSH, LIPID, CMP, GFR ####[place] [address] Triglyceride mass conc 184 mg/dL High 0-150 [facility] ([place]) Comment on above: Result Comment: Trig lyceride Reference Interval:Less than 150 [id number] Borderline high [id number] High [id number] or higher Very high risk Performed By: #### A 1C, TSH, LIPID, CMP, GFR ####[address] [address] TSHon 10-11-2018 Thyrotropin Qn 1.54 mcIU/mL Normal 0.36-3.74 [facility] ([place] Comment on above: Performed By: #### A 1C, TSH, LIPID, CMP, GFR ####[place] [address] MISCNBon 05-23-2018 Misc. lab Send Out (Non Blood) See Comments Normal [facility] ([place] Comment on above: Result Comment: See separate report Performed By: #### M ISCNB ####[place] [place], [place] [address] IPROINon 05-09-2018 Protein mass conc 6.1 g/dL Normal [facility] ([place] Comment on above: Result Comment: Refe rence range: <=8.0Unit: pmol/L(NOTE)INTERPRETIVE INFORMATION: Proinsulin, IntactProinsulin, Intact: Fasting intact proinsulin values above thereference interval indicate a possible insulin secretingpancreatic tumor (insulinoma) in patients with hypoglycemia.Fasting intact proinsulin values range from 3 to 50 pmol/L inpatients with untreated type 2 diabetes.Performed by [employer],[address] [place] [address],[place] [address] jex[employer], Peter Covington MD, Lab. Director Performed By: #### C MP, GFR, BHB, INSLN, CPEP ####[place] [address]#### IPROIN ####[address] [address] [place], [place] [address] CPEPon 05-04-2018 C-Peptide 5.6 ng/mL Normal 1.0-7.6 [facility] ([place] Comment on above: Performed By: #### C MP, GFR, BHB, INSLN, CPEP ####[address] [address]#### IPROIN ####[address] [address] [place], [place] [address] .GFRon 05-03-2018 GFR 103 ml/min/1.73sqm Normal [facility] ([place] Comment on above: Result Comment: GFR Population mean for , Non- Americans Ages 20-29 = 116 mL/min/1.73 sq.m. Ages 30-39 = 107 mL/min/1.73 sq.m. Ages 40-49 = 99 mL/min/1.73 sq.m. Ages 50-59 = 93 mL/min/1.73 sq.m. Ages 60-69 = 85 mL/min/1.73 sq.m. Ages 70+ = 75 mL/min/1.73 sq.m.Chronic Kidney Disease: Less than 60 mL/min/1.73 square metersEnd Stage Renal Disease: Less than 15 mL/min/1.73 square meters Performed By: #### C MP, GFR, BHB, INSLN, CPEP ####[address] [address]#### IPROIN ####[address] [address] [place], [place] [address] GFR Non- 85 ml/min/1.73sqm Normal [facility] ([place] Comment on above: Result Comment: GFR Population mean for , Non- Americans Ages 20-29 = 116 mL/min/1.73 sq.m. Ages 30-39 = 107 mL/min/1.73 sq.m. Ages 40-49 = 99 mL/min/1.73 sq.m. Ages 50-59 = 93 mL/min/1.73 sq.m. Ages 60-69 = 85 mL/min/1.73 sq.m. Ages 70+ = 75 mL/min/1.73 sq.m.Chronic Kidney Disease: Less than 60 mL/min/1.73 square metersEnd Stage Renal Disease: Less than 15 mL/min/1.73 square meters Performed By: #### C MP, GFR, BHB, INSLN, CPEP ####[place] [address]#### IPROIN ####[address] [place] [id number] [place] [address] 05-03-2018 B-Hydroxybutyrate 0.81 mg/dL Normal 0.20-2.81 [facility] ([place] Comment on above: Performed By: #### C MP, GFR, BHB, INSLN, CPEP ####[place] [address]#### IPROIN ####[facility] 05-03-2018 Albumin mass conc 3.2 G/dL Low 3.5-5.0 [facility] ([place] Comment on above: Performed By: #### C MP, GFR, BHB, INSLN, CPEP ####[place] [address]#### IPROIN ####[facility] [place] [address] Albumin/Globulin mass ratio 1.0 {ratio} Low 1.1-2.5 [facility] ([place] Comment on above: Performed By: #### C MP, GFR, BHB, INSLN, CPEP ####[place] [address]#### IPROIN ####[facility] [place] [address] ALP enzyme act/vol 54 U/L Normal 40-135 [facility] ([place] Comment on above: Performed By: #### C MP, GFR, BHB, INSLN, CPEP ####[place] [address]#### IPROIN ####[place] [address] [place] [address] ALT enzyme act/vol 49 U/L High 10-35 [facility] ([place] Comment on above: Performed By: #### C MP, GFR, BHB, INSLN, CPEP ####[place] [address]#### IPROIN ####[facility] [place], [place] [address] AST enzyme act/vol 23 U/L Normal 10-40 [facility] ([place] Comment on above: Performed By: #### C MP, GFR, BHB, INSLN, CPEP ####[place] [address]#### IPROIN ####[place] [address] [place] [id number] Bili Total 0.3 mg/dL Normal 0.2-1.0 [facility] ([place] Comment on above: Performed By: #### C MP, GFR, BHB, INSLN, CPEP ####[place] [address]#### IPROIN ####[place] [address] [place] [address] Calcium mass conc 8.1 mg/dL Low 8.4-10.2 [facility] ([place] Comment on above: Performed By: #### C MP, GFR, BHB, INSLN, CPEP ####[place] [address]#### IPROIN ####[facility] [place], [place] [address] Chloride molar conc 102 mmol/L Normal 98-107 [facility] ([place]) Comment on above: Performed By: #### C MP, GFR, BHB, INSLN, CPEP ####[place] [address]#### IPROIN ####[facility] [place], [place] [address] CO2 molar conc 26 mmol/L Normal 22-29 [facility] ([place] Comment on above: Performed By: #### C MP, GFR, BHB, INSLN, CPEP ####[place] [address]#### IPROIN ####[facility] [place] [address] Creatinine mass conc 0.77 mg/dL Normal 0.55-1.02 [facility] ([place] Comment on above: Performed By: #### C MP, GFR, BHB, INSLN, CPEP ####[place] [address]#### IPROIN ####[place] [address] [place] [address] Electrolyte Balance 10.0 mEq/L Normal [facility] ([place] Comment on above: Performed By: #### C MP, GFR, BHB, INSLN, CPEP ####[place] [address]#### IPROIN ####[place] [address] [place] [address] Globulin Calculated mass conc (S) 3.3 G/dL Normal [facility] ([place] Comment on above: Performed By: #### C MP, GFR, BHB, INSLN, CPEP ####[place] [address]#### IPROIN ####[place] [address] [place] [address] Glucose mass conc 98 mg/dL Normal 70-105 [facility] ([place] Comment on above: Performed By: #### C MP, GFR, BHB, INSLN, CPEP ####[place] [address]#### IPROIN ####[facility] [place] [address] Potassium molar conc 3.7 mmol/L Normal 3.5-5.1 [facility] ([place] Comment on above: Performed By: #### C MP, GFR, BHB, INSLN, CPEP ####[place] [address]#### IPROIN ####[place] [address] Protein mass conc 6.5 G/dL Normal 6.4-8.2 [facility] ([place] Comment on above: Performed By: #### C MP, GFR, BHB, INSLN, CPEP ####[place] [address]#### IPROIN ####[facility] [place] [address] Sodium molar conc 138 mmol/L Normal 136-145 [facility] ([place] Comment on above: Performed By: #### C MP, GFR, BHB, INSLN, CPEP ####[place] [address]#### IPROIN ####[place] [address] [place] [address] Urea nitrogen mass conc 9 mg/dL Normal 7-18 [facility] ([place] Comment on above: Performed By: #### C MP, GFR, BHB, INSLN, CPEP ####[place] [address]#### IPROIN ####[facility] [place] [address] Urea nitrogen/Creatinine mass ratio 12 ratio Normal 7-27 [facility] ([place] Comment on above: Performed By: #### C MP, GFR, BHB, INSLN, CPEP ####[place] [address]#### IPROIN ####[facility] [place] [address] INSLNon 05-03-2018 Insulin 38.50 mcIU/mL High 2.60-37.60 [facility] ([place] Comment on above: Performed By: #### C MP, GFR, BHB, INSLN, CPEP ####[place] [address]#### IPROIN ####[facility] [place] [address] Follow Up (General Surgery)o n 03-17-2018 Follow Up (General Surgery) Chief ComplaintDiaphragm dysfunction History of Present IllnessThis is a 37-year-old female I saw 3 years ago for the possibility of diaphragm dysfunction. At that time we assessed that both diaphragms moved. She had previous surgery on her left diaphragm as a child. Presently she is been able lose 40 pounds which is significantly helped her breathing. 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 She still has some episodes of shortness of breath and hospitalizations for asthma.Physical examination she has a left upper quadrant transverse incision she actually has a transverse chest incisionAssessment. Abnormal diaphragm with congenital operation. Based on my previous examinations and assessments of her diaphragm under fluoroscopy and phrenic nerve study did not think surgery would improve her diaphragm function. She ever needs abdominal surgery and would assess it at that time. She states she occasionally has gallbladder problems but nothing recently. She will contact me if she needs surgery were expertise in doing surgery on patient's with compromised pulmonary problems would be of value.Hector Kumari MD FACSProfessor of SurgeryEast [place] and Franky Araya Chair in Surgical InnovationDirector of Minimally Invasive SurgeryFostoria City Hospital of Fwyduuge[address] [facility], [id number] [phone]: 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) Past Medical History History of continuous positive airway pressure (CPAP) therapy at home (V46.8) (Z99.89) Surgical History History of Lung Surgery History of Tubal Ligation Social History Never smoker Allergies [place] TABS red rash; Recorded By: Maye Washington; 03/17/2018 10:24:08 AM nabumetone Recorded By: Maye Washington; 03/17/2018 10:24:08 AM Penicillins Recorded By: Maye Washington; 03/17/2018 10:24:08 AM Current Meds Dicyclomine HCl - 10 MG Oral Capsule;Therapy: 62Abr2017 to Recorded Dispense: 28 Days ; #:112 CAPS; Refill: 0; RODNEY = N; Record; Last Updated By: Maye Washington; 03/17/2018 10:27:16 AM Drug [place] Unifine Pentips 31G X 5 MM Miscellaneous;Therapy: 26Mar2017 to Recorded Dispense: 90 Days ; #:100 MISC; Refill: 0; RODNEY = N; Record; Last Updated By: Maye Washington; 03/17/2018 10:33:48 AM Furosemide 20 MG Oral Tablet;Therapy: 01Nov2017 to Recorded Dispense: 30 Days ; #:60 TABS; Refill: 0; RODNEY = N; Record; Last Updated By: Maye Washington; 03/17/2018 10:29:26 AM Gabapentin 100 MG Oral Capsule;Therapy: 01Nov2017 to Recorded Dispense: 30 Days ; #:90 CAPS; Refill: 0; RODNEY = N; Record; Last Updated By: Maye Washington; 03/17/2018 10:29:26 AM Levemir FlexTouch 100 UNIT/ML Subcutaneous Solution Pen-injector;Therapy: 03Dec2017 to Recorded Dispense: 150 Days ; #:15 SOPN; Refill: 0; RODNEY = N; Record; Last Updated By: Maye Washington; 03/17/2018 10:29:26 AM MetFORMIN HCl - 500 MG Oral Tablet;Therapy: 01Nov2017 to Recorded Dispense: 30 Days ; #:120 TABS; Refill: 0; RODNEY = N; Record; Last Updated By: Maye Washington; 03/17/2018 10:29:26 AM Metoprolol Succinate ER 200 MG Oral Tablet Extended Release 24 Hour;Therapy: 01Nov2017 to Recorded Dispense: 30 Days ; #:30 TB24; Refill: 0; RODNEY = N; Record; Last Updated By: Maye Washington; 03/17/2018 10:33:48 AM Montelukast Sodium 10 MG Oral Tablet;Therapy: [id number] to Recorded Dispense: 30 Days ; #:30 TABS; Refill: 0; RODNEY = N; Record; Last Updated By: Maye Washington; 03/17/2018 10:33:48 AM Natural Vitamin D-3 5000 UNIT Oral Tablet;Therapy: 14Dec2017 to Recorded Dispense: 20 Days ; #:40 TABS; Refill: 0; RODNEY = N; Record; Last Updated By: Maye Washington; 03/17/2018 10:33:48 AM Pantoprazole Sodium 40 MG Oral Tablet Delayed Release;Therapy: 25Oct2017 to Recorded Dispense: 10 Days ; #:10 TBEC; Refill: 0; RODNEY = N; Record; Last Updated By: Maye Washington; 03/17/2018 10:33:47 AM Pharmacist Choice Lancets Miscellaneous;Therapy: 17Aug2017 to Recorded Dispense: 25 Days ; #:100 MISC; Refill: 0; RODNEY = N; Record; Last Updated By: Maye Washington; 03/17/2018 10:38:53 AM [employer] No Coding Blood Gluc In Vitro Strip;Therapy: 17Aug2017 to Recorded Dispense: 25 Days ; #:100 STRP; Refill: 0; RODNEY = N; Record; Last Updated By: Maye Washington; 03/17/2018 10:38:37 AM [employer] Voice Blood Glucose w/Device Kit;Therapy: 06Jul2017 to Recorded Dispense: 30 Days ; #:1 KIT; Refill: 0; RODNEY = N; Record; Last Updated By: Maye Washington; 03/17/2018 10:38:21 AM Sertraline HCl - 100 MG Oral Tablet;Therapy: 01Nov2017 to Recorded Dispense: 30 Days ; #:30 TABS; Refill: 0; RODNEY = N; Record; Last Updated By: Maye Washington; 03/17/2018 10:35:30 AM Spironolactone 25 MG Oral Tablet;Therapy: 02Oct2017 to Recorded Dispense: 30 Days ; #:60 TABS; Refill: 0; RODNEY = N; Record; Last Updated By: Maye Washington; 03/17/2018 10:36:38 AM Trokendi XR 50 MG Oral Capsule Extended Release 24 Hour;Therapy: 01Nov2017 to Recorded Dispense: 30 Days ; #:30 CP24; Refill: 0; RODNEY = N; Record; Last Updated By: Maye Washington; 03/17/2018 10:36:38 AM Trulicity 1.5 MG/0.5ML Subcutaneous Solution Pen-injector;Therapy: 01Nov2017 to Recorded Dispense: 28 Days ; #:2 SOPN; Refill: 0; RODNEY = N; Record; Last Updated By: Maye Washington; 03/17/2018 10:38:21 AM Unspecified Medication; uses 3 liters oxygen daily and at night;Therapy: 17Mar2018 to Recorded Rx By: Hector Kumari; Dispense: 0 Days ; #: Sufficient; Refill: 0; RODNEY = N; Record; Last Updated By: Maye Washington; 03/17/2018 11:29:09 AM Ventolin HFA 108 (90 Base) MCG/ACT Inhalation Aerosol Solution;Therapy: 01Nov2017 to Recorded Dispense: 16 Days ; #:18 AERS; Refill: 0; RODNEY = N; Record; Last Updated By: Maye Washington; 03/17/2018 10:37:43 AM Verapamil HCl ER 240 MG Oral Tablet Extended Release;Therapy: 03Mar2018 to Recorded Dispense: 28 Days ; #:56 TBCR; Refill: 0; RODNEY = N; Record; Last Updated By: Maye Washington; 03/17/2018 10:37:03 AM Vitamin C 500 MG Oral Tablet;Therapy: 02Mar2018 to Recorded Dispense: 28 Days ; #:28 TABS; Refill: 0; RODNEY = N; Record; Last Updated By: Maye Washington; 03/17/2018 10:34:07 AM Vitamin D3 5000 UNIT Oral Capsule;Therapy: 05Jan2018 to Recorded Dispense: 28 Days ; #:56 CAPS; Refill: 0; RODNEY = N; Record; Last Updated By: Maye Washington; 03/17/2018 10:33:48 AM Vitals Vital Signs Recorded: 17Mar2018 10:10TRSmnrajdfbvx59.1 FHeart Ldmy74Qhrdrfzg281Gkqfjcrcm8 7Lralrf2 ft 6 jjIbnzci282 lb 6 ozBMI Nxzyuharau90.67BSA Calculated2.25Pain Scale0 Results/Data Xray Chest 2 View PA + [id number] 10:04AMHector Kumari[Jan 25, 2015 7:51AM Hector Kumari] Reason: Unspecified for Xray Chest 2 View PA + Lateral Test NameResultFlagReferenceXray Chest 2 View PA + Lateral(Report)Interpreted by: TG STANLEY 02/05/15 08:49 EXAMINATION: Fluoroscopic support for Dr. Kumari for SNIFF test. CLINICAL INDICATION: Respiratory dysfunction. Assess diaphragm function. COMPARISON: None FINDINGS: Fluoroscopy was performed by neurology, provided by radiology. 350 spot images were obtained. Fluoroscopic time was 1.9 minutes. Evaluation shows that the right hemidiaphragm moves greater than 2 cm with inspiration while the left hemidiaphragm moves approximately 1.5 cm with inspiration. No paradoxical movement is identified. IMPRESSION: 1.Status post diaphragm function test 2.Please see neurology report for full details. I personally reviewed the image(s) / study and resident interpretation. I agree with the findings as stated. This study has been interpreted at [facility] in [place], [place]. 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 Abnormal diaphragm with congenital operation. Based on my previous examinations and assessments of her diaphragm under fluoroscopy and phrenic nerve study did not think surgery would improve her diaphragm function. She ever needs abdominal surgery and would assess it at that time. She states she occasionally has gallbladder problems but nothing recently. She will contact me if she needs surgery were expertise in doing surgery on patient's with compromised pulmonary problems would be of value. End of Encounter Meds Dicyclomine HCl - 10 MG Oral Capsule;Therapy: 03Mar2018 to RecordedDrug [place] Unifine Pentips 31G X 5 MM Miscellaneous;Therapy: 26Mar2017 to RecordedFurosemide 20 MG Oral Tablet;Therapy: 01Nov2017 to RecordedGabapentin 100 MG Oral Capsule;Therapy: 01Nov2017 to RecordedLevemir FlexTouch 100 UNIT/ML Subcutaneous Solution Pen-injector;Therapy: 03Dec2017 to RecordedMetFORMIN HCl - 500 MG Oral Tablet;Therapy: 01Nov2017 to RecordedMetoprolol Succinate ER 200 MG Oral Tablet Extended Release 24 Hour;Therapy: 01Nov2017 to RecordedMontelukast Sodium 10 MG Oral Tablet;Therapy: [id number] to RecordedNatural Vitamin D-3 5000 UNIT Oral Tablet;Therapy: 14Dec2017 to RecordedPantoprazole Sodium 40 MG Oral Tablet Delayed Release;Therapy: 25Oct2017 to RecordedPharmacist Choice Lancets Miscellaneous;Therapy: 17Aug2017 to RecordedProdigy No Coding Blood Gluc In Vitro Strip;Therapy: 17Aug2017 to RecordedProdigy Voice Blood Glucose w/Device Kit;Therapy: 06Jul2017 to RecordedSertraline HCl - 100 MG Oral Tablet;Therapy: 01Nov2017 to RecordedSpironolactone 25 MG Oral Tablet;Therapy: [id number] to RecordedTrokendi XR 50 MG Oral Capsule Extended Release 24 Hour;Therapy: 01Nov2017 to RecordedTrulicity 1.5 MG/0.5ML Subcutaneous Solution Pen-injector;Therapy: 01Nov2017 to RecordedUnspecified Medication; uses 3 liters oxygen daily and at night;Therapy: 17Mar2018 to RecordedVentolin HFA 108 (90 Base) MCG/ACT Inhalation Aerosol Solution;Therapy: 01Nov2017 to RecordedVerapamil HCl ER 240 MG Oral Tablet Extended Release;Therapy: [id number] to RecordedVitamin C 500 MG Oral Tablet;Therapy: 02Mar2018 to RecordedVitamin D3 5000 UNIT Oral Capsule;Therapy: 05Jan2018 to Recorded Normal [facility] [employer] Clinical Lists 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 Left ventricular Ejection fraction 65 % Invalid Interpretation Code [facility] Work Phone: Office Visit: postop surgery 11/09/1202-07-2013 Documentation of current medications (procedure) Done Invalid Interpretation Code [facility] Phone: Protein mass conc Done [facility] Phone: Tobacco smoking status NHIS never smoker [facility] [employer] [facility] [facility] Phone: Tobacco use [facility] never smoker Invalid Interpretation Code [facility] Phone: Vital Signs Date Time Vital Sign Value Performing Clinician Facility 03-27-2025 11:51-0400 Body height 172.[address] Kenneth Villanueva DO Work Phone: [facility] 03-27-2025 11:40-0400 Body mass index (BMI) [Ratio] 38.5 kg/m2 Dr. Kenneth Villanueva DO Work Phone: [facility] 03-27-2025 11:40-0400 Body weight 114.[address] Kenneth Villanueva DO Work Phone: [facility] 03-27-2025 11:40-0400 Diastolic blood pressure 82 mm[Hg] Dr. Kenneth Villanueva DO Work Phone: [facility] 03-27-2025 11:40-0400 Systolic blood pressure 160 mm[Hg] Dr. Kenneth Villanueva DO Work Phone: [facility] 03-26-2025 21:31-0400 Body temperature 98.6 [degF] Dr. Kenneth Villanueva DO Work Phone: [facility] 03-26-2025 21:31-0400 Diastolic blood pressure 70 mm[Hg] Dr. Kenneth Villanueva DO Work Phone: [facility] 03-26-2025 21:31-0400 Heart rate 81 /min Dr. Kenneth Villanueva DO Work Phone: [facility] 03-26-2025 21:31-0400 Respiratory rate 16 /min Dr. Kenneth Villanueva DO Work Phone: [facility] 03-26-2025 21:31-0400 SaO2% (BldA) [Mass fraction] 94 % Dr. Kenneth Villanueva DO Work Phone: [facility] 03-26-2025 21:31-0400 Systolic blood pressure 120 mm[Hg] Dr. Kenneth Villnaueva DO Work Phone: [facility] 03-26-2025 17:48-0400 Body height 172.[address] Kenneth Villanueva DO Work Phone: [facility] 03-26-2025 17:48-0400 Body mass index (BMI) [Ratio] 39.6 kg/m2 Dr. Kenneth Villanueva DO Work Phone: [facility] 03-26-2025 17:48-0400 Body weight 118.[address] Kenneth Villanueva DO Work Phone: [facility] 03-08-2025 08:34-0400 Body mass index (BMI) [Ratio] 39.5 kg/m2 Dr. Kenneth Villanueva DO Work Phone: [facility] 03-08-2025 08:34-0400 Body temperature 97.4 [degF] Dr. Kenneth Villanueva DO Work Phone: [facility] 03-08-2025 08:34-0400 Body weight 117.[address] Kenneth Villanueva DO Work Phone: [facility] 03-08-2025 08:34-0400 Diastolic blood pressure 94 mm[Hg] Dr. Kenneth Villanueva DO Work Phone: [facility] 03-08-2025 08:34-0400 Heart rate 76 /min Dr. Kenneth Villanueva DO Work Phone: [facility] 03-08-2025 08:34-0400 Inhaled oxygen flow rate 2 L/min Dr. Kenneth Villanueva DO Work Phone: [facility] 03-08-2025 08:34-0400 Respiratory rate 18 /min Dr. Kenneth Villanueva DO Work Phone: [facility] 03-08-2025 08:34-0400 SaO2% (BldA) [Mass fraction] 97 % Dr. Kenneth Villanueva DO Work Phone: [facility] 03-08-2025 08:34-0400 Systolic blood pressure 149 mm[Hg] Dr. Kenneth Villanueva DO Work Phone: [facility] 02-07-2025 18:45-0400 Body temperature 98 [degF] Dr. Kenneth Villanueva DO Work Phone: [facility] 02-07-2025 18:45-0400 Diastolic blood pressure 83 mm[Hg] Dr. Kenneth Villanueva DO Work Phone: [facility] 02-07-2025 18:45-0400 Heart rate 82 /min Dr. Kenneth iVllanueva DO Work Phone: [facility] 02-07-2025 18:45-0400 Respiratory rate 18 /min Dr. Kenneth Villanueva DO Work Phone: [facility] 02-07-2025 18:45-0400 SaO2% (BldA) [Mass fraction] 100 % Dr. Kenneth Villanueva DO Work Phone: [facility] 02-07-2025 18:45-0400 Systolic blood pressure 129 mm[Hg] Dr. Kenneth Villanueva DO Work Phone: [facility] 02-07-2025 15:43-0400 Body height 172.[address] Kenneth Villanueva DO Work Phone: [facility] 02-07-2025 15:43-0400 Body mass index (BMI) [Ratio] 42.6 kg/m2 Dr. Kenneth Villanueva DO Work Phone: [facility] 02-07-2025 15:43-0400 Body weight 127.[address] Kenneth Villanueva DO Work Phone: [facility] 02-07-2025 15:43-0400 Inhaled oxygen flow rate 2 L/min Dr. Kenneth Villanueva DO Work Phone: [facility] 02-06-2025 11:19-0400 Body mass index (BMI) [Ratio] 40.1 kg/m2 Dr. Kenneth Villanueva DO Work Phone: [facility] 02-06-2025 11:19-0400 Body weight 119.[address] Kenneth Villanueva DO Work Phone: [facility] 02-06-2025 11:19-0400 Diastolic blood pressure 86 mm[Hg] Dr. Kenneth Villanueva DO Work Phone: [facility] 02-06-2025 11:19-0400 Systolic blood pressure 163 mm[Hg] Dr. Kenneth Villanueva DO Work Phone: [facility] 01-19-2025 12:30-0400 Body height 172.[address] Kenneth Villanueva DO Work Phone: [facility] 01-19-2025 12:30-0400 Body weight 115.[address] Kenneth Villanueva DO Work Phone: [facility] 01-19-2025 12:30-0400 Heart rate 91 /min Dr. Kenneth Villanueva DO Work Phone: [facility] 01-19-2025 12:30-0400 Inhaled oxygen flow rate 1 L/min Dr. Kenneth Villanueva DO Work Phone: [facility] 01-19-2025 12:30-0400 SaO2% (BldA) [Mass fraction] 96 % Dr. Kenneth Villanueva DO Work Phone: [facility] 01-19-2025 07:36-0400 Body mass index (BMI) [Ratio] 38.9 kg/m2 Dr. Kenneth Villanueva DO Work Phone: [facility] 01-19-2025 07:36-0400 Body weight 116.[address] Kenneth Villanueva DO Work Phone: [facility] 01-19-2025 07:36-0400 Diastolic blood pressure 89 mm[Hg] Dr. Kenneth Villanueva DO Work Phone: [facility] 01-19-2025 07:36-0400 Heart rate 92 /min Dr. Kenneth Villanueva DO Work Phone: [facility] 01-19-2025 07:36-0400 Respiratory rate 18 /min Dr. Kenneth Villanueva DO Work Phone: [facility] 01-19-2025 07:36-0400 SaO2% (BldA) [Mass fraction] 93 % Dr. Kenneth Villanueva DO Work Phone: [facility] 01-19-2025 07:36-0400 Systolic blood pressure 136 mm[Hg] Dr. Kenneth Villanueva DO Work Phone: [facility] 12-13-2024 08:03-0400 Body mass index (BMI) [Ratio] 39.9 kg/m2 Dr. Kenneth Villanueva DO Work Phone: [facility] 12-13-2024 08:03-0400 Body temperature 97.5 [degF] Dr. Kenneth Villanueva DO Work Phone: [facility] 12-13-2024 08:03-0400 Body weight 119.[address] Kenneth Villanueva DO Work Phone: [facility] 12-13-2024 08:03-0400 Diastolic blood pressure 104 mm[Hg] Dr. Kenneth Villanueva DO Work Phone: [facility] 12-13-2024 08:03-0400 Heart rate 94 /min Dr. Kenneth Villanueva DO Work Phone: [facility] 12-13-2024 08:03-0400 Inhaled oxygen flow rate 2 L/min Dr. Kenneth Villanueva DO Work Phone: [facility] 12-13-2024 08:03-0400 Respiratory rate 20 /min Dr. Kenneth Villanueva DO Work Phone: [facility] 12-13-2024 08:03-0400 SaO2% (BldA) [Mass fraction] 96 % Dr. Kenneth Villanueva DO Work Phone: [facility] 12-13-2024 08:03-0400 Systolic blood pressure 168 mm[Hg] Dr. Kenneth Villanueva DO Work Phone: [facility] 02-03-2024 07:58-0400 Body height 172.[address] Kenneth Villanueva Work Phone: [facility] 02-03-2024 07:58-0400 Body mass index (BMI) [Ratio] 39.4 kg/m2 Dr. Kenneth Villanueva Work Phone: [facility] 02-03-2024 07:58-0400 Body temperature 98.6 [degF] Dr. Kenneth Villanueva Work Phone: [facility] 02-03-2024 07:58-0400 Body weight 117.[address] Kenneth Villanueva Work Phone: [facility] 02-03-2024 07:58-0400 Diastolic blood pressure 107 mm[Hg] Dr. Kenneth Villanueva Work Phone: [facility] 02-03-2024 07:58-0400 Heart rate 88 /min Dr. Kenneth Villanueva Work Phone: [facility] 02-03-2024 07:58-0400 Inhaled oxygen flow rate 2 L/min Dr. Kenneth Villanueva Work Phone: [facility] 02-03-2024 07:58-0400 Respiratory rate 24 /min Dr. Kenneth Villanueva Work Phone: [facility] 02-03-2024 07:58-0400 SaO2% (BldA) [Mass fraction] 97 % Dr. Kenneth Villanueva Work Phone: [facility] 02-03-2024 07:58-0400 Systolic blood pressure 167 mm[Hg] Dr. Kenneth Villanueva Work Phone: [facility] 12-07-2023 08:57-0500 Body mass index (BMI) [Ratio] 39.6 kg/m2 Dr. Kenneth Villanueva Work Phone: [facility] 12-07-2023 08:57-0500 Body weight 118.[address] Kenneth Villanueva Work Phone: [facility] 12-07-2023 08:57-0500 Diastolic blood pressure 91 mm[Hg] Dr. Kenneth Villanueva Work Phone: [facility] 12-07-2023 08:57-0500 Heart rate 87 /min Dr. Kenneth Villanueva Work Phone: [facility] 12-07-2023 08:57-0500 Respiratory rate 18 /min Dr. Kenneth Villanueva Work Phone: [facility] 12-07-2023 08:57-0500 SaO2% (BldA) [Mass fraction] 97 % Dr. Kenneth Villanueva Work Phone: [facility] 12-07-2023 08:57-0500 Systolic blood pressure 142 mm[Hg] Dr. Kenneth Villanueva Work Phone: [facility] 11-26-2023 19:55-0500 Body temperature 98.3 [degF] Dr. Kenneth Villanueva Work Phone: [facility] 11-26-2023 19:55-0500 Diastolic blood pressure 106 mm[Hg] Dr. Kenneth Villanueva Work Phone: [facility] 11-26-2023 19:55-0500 Heart rate 74 /min Dr. Kenneth Villanueva Work Phone: [facility] 11-26-2023 19:55-0500 Respiratory rate 14 /min Dr. Kenneth Villanueva Work Phone: [facility] 11-26-2023 19:55-0500 SaO2% (BldA) [Mass fraction] 95 % Dr. Kenneth Villanueva Work Phone: [facility] 11-26-2023 19:55-0500 Systolic blood pressure 158 mm[Hg] Dr. Kenneth Villanueva Work Phone: [facility] 11-26-2023 16:25-0500 Body height 172.[address] Kenneth Villanueva Work Phone: [facility] 11-26-2023 16:25-0500 Body mass index (BMI) [Ratio] 40.5 kg/m2 Dr. Kenneth Villanueva Work Phone: [facility] 11-26-2023 16:25-0500 Body weight [address] Kenneth Villanueva Work Phone: [facility] 11-26-2023 15:52-0500 Body temperature 98.71 [degF] Nilda Cruz HUMAN RESOURCES LEADER.HERBOLOGIST Work Phone: [facility] 11-26-2023 15:52-0500 Body weight 122.38 kg Nilda Cruz HUMAN RESOURCES LEADER.HERBOLOGIST Work Phone: [facility] 11-26-2023 15:52-0500 Diastolic blood pressure 112 mm[Hg] Nilda Cruz HUMAN RESOURCES LEADER.HERBOLOGIST Work Phone: [facility] 11-26-2023 15:52-0500 Heart rate 98 /min Nilda Cruz HUMAN RESOURCES LEADER.HERBOLOGIST Work Phone: [facility] 11-26-2023 15:52-0500 Respiratory rate 28 /min Nilda Cruz HUMAN RESOURCES LEADER.HERBOLOGIST Work Phone: [facility] 11-26-2023 15:52-0500 SaO2% (BldA) [Mass fraction] 95 % Nilda Cruz HUMAN RESOURCES LEADER.HERBOLOGIST Work Phone: [facility] 11-26-2023 15:52-0500 Systolic blood pressure 178 mm[Hg] Nilda Cruz HUMAN RESOURCES LEADER.HERBOLOGIST Work Phone: [facility] 11-17-2023 07:46-0500 Body temperature 99.9 [degF] Dr. Kenneth Villanueva Work Phone: [facility] 11-17-2023 07:46-0500 Diastolic blood pressure 76 mm[Hg] Dr. Kenneth Villanueva Work Phone: [facility] 11-17-2023 07:46-0500 Heart rate 120 /min Dr. Kenneth Villanueva Work Phone: [facility] 11-17-2023 07:46-0500 Respiratory rate 16 /min Dr. Kenneth Villanueva Work Phone: [facility] 11-17-2023 07:46-0500 SaO2% (BldA) [Mass fraction] 99 % Dr. Kenneth Villanueva Work Phone: [facility] 11-17-2023 07:46-0500 Systolic blood pressure 164 mm[Hg] Dr. Kenneth Villanueva Work Phone: [facility] 11-17-2023 06:52-0500 Inhaled oxygen flow rate 2 L/min Dr. Kenneth Villanueva Work Phone: [facility] 11-17-2023 06:08-0500 Body height 175.[address] Kenneth Villanueva Work Phone: [facility] 11-17-2023 06:08-0500 Body mass index (BMI) [Ratio] 33.3 kg/m2 Dr. Kenneth Villanueva Work Phone: [facility] 11-17-2023 06:08-0500 Body weight 102.[address] Kenneth Villanueva Work Phone: [facility] 10-09-2023 02:34-0500 Diastolic blood pressure 74 mm[Hg] [facility] 10-09-2023 02:34-0500 Heart rate 79 /min [facility] 10-09-2023 02:34-0500 Systolic blood pressure 134 mm[Hg] [facility] 10-09-2023 00:58-0500 Respiratory rate 18 /min [facility] 10-08-2023 22:40-0500 Body height 172.72 cm [facility] 10-08-2023 22:40-0500 Body temperature 98 [degF] [facility] 10-08-2023 22:40-0500 Inhaled oxygen flow rate 3 L/min [facility] 10-08-2023 22:40-0500 SaO2% (BldA) [Mass fraction] 96 % [facility] 09-24-2023 08:43-0500 Body mass index (BMI) [Ratio] 40.1 kg/m2 [facility] 09-24-2023 08:43-0500 Body temperature 97.4 [degF] [facility] 09-24-2023 08:43-0500 Body weight 119.74 kg [facility] 09-24-2023 08:43-0500 Diastolic blood pressure 98 mm[Hg] [facility] 09-24-2023 08:43-0500 Heart rate 90 /min [facility] 09-24-2023 08:43-0500 Inhaled oxygen flow rate 2 L/min [facility] 09-24-2023 08:43-0500 Respiratory rate 20 /min [facility] 09-24-2023 08:43-0500 SaO2% (BldA) [Mass fraction] 93 % [facility] 09-24-2023 08:43-0500 Systolic blood pressure 184 mm[Hg] [facility] 06-22-2023 08:55-0400 Body mass index (BMI) [Ratio] 39.5 kg/m2 Dr. Kenneth Villanueva Work Phone: [facility] 06-22-2023 08:55-0400 Body weight 117.[address] Kenneth Villanueva Work Phone: [facility] 06-22-2023 08:55-0400 Diastolic blood pressure 86 mm[Hg] Dr. Kenneth Villanueva Work Phone: [facility] 06-22-2023 08:55-0400 Heart rate 77 /min Dr. Kenneth Villanueva Work Phone: [facility] 06-22-2023 08:55-0400 Respiratory rate 18 /min Dr. Kenneth Villanueva Work Phone: [facility] 06-22-2023 08:55-0400 SaO2% (BldA) [Mass fraction] 93 % Dr. Kenneth Villanueva Work Phone: [facility] 06-22-2023 08:55-0400 Systolic blood pressure 136 mm[Hg] Dr. Kenneth Villanueva Work Phone: [facility] 05-27-2023 08:21-0400 Body mass index (BMI) [Ratio] 38.7 kg/m2 Dr. Kenneth Villanueva Work Phone: [facility] 05-27-2023 08:21-0400 Body temperature 96.8 [degF] Dr. Kenneth Villanueva Work Phone: [facility] 05-27-2023 08:21-0400 Body weight 118.[address] Kenneth Villanueva Work Phone: [facility] 05-27-2023 08:21-0400 Diastolic blood pressure 96 mm[Hg] Dr. Kenneth Villanueva Work Phone: [facility] 05-27-2023 08:21-0400 Heart rate 86 /min Dr. Kenneth Villanueva Work Phone: [facility] 05-27-2023 08:21-0400 Inhaled oxygen flow rate 2 L/min Dr. Kenneth Villanueva Work Phone: [facility] 05-27-2023 08:21-0400 Respiratory rate 22 /min Dr. Kenneth Villanueva Work Phone: [facility] 05-27-2023 08:21-0400 SaO2% (BldA) [Mass fraction] 94 % Dr. Kenneth Villanueva Work Phone: [facility] 05-27-2023 08:21-0400 Systolic blood pressure 194 mm[Hg] Dr. Kenneth Villanueva Work Phone: [facility] 04-29-2023 11:03-0400 Body height 172.72 cm Kenneth STEIN [facility] 04-27-2023 19:33-0400 Diastolic blood pressure 102 mm[Hg] Kenneth STEIN [facility] 04-27-2023 19:33-0400 Heart rate 136 /min Kenneth Lalit [facility] 04-27-2023 19:33-0400 Respiratory rate 24 /min Kenneth Lalit [facility] 04-27-2023 19:33-0400 SaO2% (BldA) [Mass fraction] 97 % Kenneth Lalit [facility] 04-27-2023 19:33-0400 Systolic blood pressure 169 mm[Hg] Kenneth Lalit [facility] 04-27-2023 16:53-0400 Inhaled oxygen flow rate 3 L/min Kenneth Lalit [facility] 04-27-2023 16:49-0400 Body mass index (BMI) [Ratio] 39.2 kg/m2 Kenneth Lalit [facility] 04-27-2023 16:49-0400 Body temperature 98.6 [degF] Kenneth Lalit [facility] 04-27-2023 16:49-0400 Body weight 116.9 kg [facility] [facility] 02-19-2023 13:41-0400 Body mass index (BMI) [Ratio] 37.8 kg/m2 Kenneth Allit [facility] 02-19-2023 13:41-0400 Body weight 115.83 kg Kenneth Lalit [facility] 02-19-2023 13:41-0400 Diastolic blood pressure 108 mm[Hg] Kenneth Lalit [facility] 02-19-2023 13:41-0400 Systolic blood pressure 168 mm[Hg] Kenneth Lalit [facility] 02-02-2023 16:21-0400 Body temperature 98.8 [degF] Kenneth Lalit [facility] 02-02-2023 16:21-0400 Diastolic blood pressure 106 mm[Hg] Kenneth Lalit [facility] 02-02-2023 16:21-0400 Heart rate 87 /min Kenneth Lalit [facility] 02-02-2023 16:21-0400 Inhaled oxygen flow rate 2 L/min Kenneth Lalit [facility] 02-02-2023 16:21-0400 Respiratory rate 16 /min Kenneth [facility] 02-02-2023 16:21-0400 SaO2% (BldA) [Mass fraction] 100 % Kenneth [facility] 02-02-2023 16:21-0400 Systolic blood pressure 174 mm[Hg] Kenneth [facility] 02-02-2023 12:30-0400 Body height 175.01 cm Kenneth [facility] 02-02-2023 12:30-0400 Body mass index (BMI) [Ratio] 36.6 kg/m2 Kenneth [facility] 02-02-2023 12:30-0400 Body weight 112 kg Kenneth [facility] 01-29-2023 08:08-0400 Body mass index (BMI) [Ratio] 37.7 kg/m2 Kenneth [facility] 01-29-2023 08:08-0400 Body weight 115.77 kg Kenneth [facility] 01-29-2023 08:08-0400 Diastolic blood pressure 83 mm[Hg] Kenneth [facility] 01-29-2023 08:08-0400 Systolic blood pressure 135 mm[Hg] Kenneth [facility] 01-27-2023 09:06-0400 Diastolic blood pressure 110 mm[Hg] Kenneth [facility] 01-27-2023 09:06-0400 Systolic blood pressure 181 mm[Hg] Kenneth [facility] 01-27-2023 07:52-0400 Body mass index (BMI) [Ratio] 36.9 kg/m2 Kenneth [facility] 01-27-2023 07:52-0400 Body temperature 97.3 [degF] Kenneth [facility] 01-27-2023 07:52-0400 Body weight 113.39 kg [facility] 01-27-2023 07:52-0400 Heart rate 91 /min Kenneth [facility] 01-27-2023 07:52-0400 Inhaled oxygen flow rate 2 L/min [facility] 01-27-2023 07:52-0400 Respiratory rate 18 /min [facility] 01-27-2023 07:52-0400 SaO2% (BldA) [Mass fraction] 96 % [facility] 01-22-2023 09:34-0400 Body mass index (BMI) [Ratio] 37 kg/m2 [facility] 01-22-2023 09:34-0400 Body weight 113.85 kg [facility] 01-22-2023 09:34-0400 Diastolic blood pressure 94 mm[Hg] [facility] 01-22-2023 09:34-0400 Heart rate 93 /min [facility] 01-22-2023 09:34-0400 Respiratory rate 18 /min [facility] 01-22-2023 09:34-0400 SaO2% (BldA) [Mass fraction] 97 % [facility] 01-22-2023 09:34-0400 Systolic blood pressure 150 mm[Hg] [facility] 11-27-2022 12:41-0500 Diastolic blood pressure 90 mm[Hg] [facility] 11-27-2022 12:41-0500 Heart rate 82 /min [facility] 11-27-2022 12:41-0500 Respiratory rate 19 /min [facility] 11-27-2022 12:41-0500 SaO2% (BldA) [Mass fraction] 96 % [facility] 11-27-2022 12:41-0500 Systolic blood pressure 174 mm[Hg] [facility] 11-27-2022 12:30-0500 Inhaled oxygen flow rate 2 L/min [facility] 11-27-2022 09:32-0500 Body height 175.26 cm [facility] 11-27-2022 09:32-0500 Body mass index (BMI) [Ratio] 38.7 kg/m2 [facility] 11-27-2022 09:32-0500 Body temperature 96 [degF] [facility] 11-27-2022 09:32-0500 Body weight 118.93 kg [facility] 11-09-2022 09:50-0500 Body height 175.26 cm [facility] 11-09-2022 09:50-0500 Body mass index (BMI) [Ratio] 39.6 kg/m2 [facility] 11-09-2022 09:50-0500 Body weight 121.78 kg [facility] 11-09-2022 09:50-0500 Diastolic blood pressure 86 mm[Hg] [facility] 11-09-2022 09:50-0500 Systolic blood pressure 132 mm[Hg] [facility] 2022 12:44-0500 Body height 175.26 cm [facility] 2022 12:44-0500 Body weight 120 kg [facility] 2022 12:44-0500 Heart rate 106 /min [facility] 2022 12:44-0500 Inhaled oxygen flow rate 2 L/min [facility] 2022 12:44-0500 SaO2% (BldA) [Mass fraction] 96 % [facility] 10-28-2022 07:02-0500 Body mass index (BMI) [Ratio] 42.7 kg/m2 [facility] 10-28-2022 07:02-0500 Body temperature 96.2 [degF] [facility] 10-28-2022 07:02-0500 Body weight 120.2 kg [facility] 10-28-2022 07:02-0500 Diastolic blood pressure 77 mm[Hg] [facility] 10-28-2022 07:02-0500 Heart rate 91 /min [facility] 10-28-2022 07:02-0500 Inhaled oxygen flow rate 4 L/min [facility] 10-28-2022 07:02-0500 Respiratory rate 20 /min [facility] 10-28-2022 07:02-0500 SaO2% (BldA) [Mass fraction] 97 % [facility] 10-28-2022 07:02-0500 Systolic blood pressure 135 mm[Hg] [facility] 10-26-2022 12:46-0500 Body mass index (BMI) [Ratio] 44.6 kg/m2 [facility] 10-26-2022 12:46-0500 Body weight 125.64 kg [facility] 10-26-2022 12:46-0500 Diastolic blood pressure 82 mm[Hg] [facility] 10-26-2022 12:46-0500 Systolic blood pressure 140 mm[Hg] [facility] 10-26-2022 10:55-0500 Body mass index (BMI) [Ratio] 40.1 kg/m2 [facility] 10-26-2022 10:55-0500 Body weight 119.74 kg [facility] 10-26-2022 10:55-0500 Diastolic blood pressure 91 mm[Hg] [facility] 10-26-2022 10:55-0500 Heart rate 94 /min [facility] 10-26-2022 10:55-0500 Respiratory rate 18 /min [facility] 10-26-2022 10:55-0500 SaO2% (BldA) [Mass fraction] 95 % [facility] 10-26-2022 10:55-0500 Systolic blood pressure 146 mm[Hg] [facility] 10-20-2022 12:55-0500 Diastolic blood pressure 102 mm[Hg] [facility] 10-20-2022 12:55-0500 Heart rate 95 /min [facility] 10-20-2022 12:55-0500 Respiratory rate 18 /min [facility] 10-20-2022 12:55-0500 SaO2% (BldA) [Mass fraction] 98 % [facility] 10-20-2022 12:55-0500 Systolic blood pressure 145 mm[Hg] [facility] 10-20-2022 10:12-0500 Inhaled oxygen flow rate 3 L/min [facility] 10-20-2022 07:53-0500 Body height 167.64 cm [facility] 10-20-2022 07:53-0500 Body mass index (BMI) [Ratio] 42.8 kg/m2 [facility] 10-20-2022 07:53-0500 Body temperature 98.5 [degF] [facility] 10-20-2022 07:53-0500 Body weight 120.5 kg [facility] 10-08-2022 07:54-0500 Body mass index (BMI) [Ratio] 42.5 kg/m2 [facility] 10-08-2022 07:54-0500 Body temperature 99.3 [degF] [facility] 10-08-2022 07:54-0500 Body weight 127 kg [facility] 10-08-2022 07:54-0500 Diastolic blood pressure 128 mm[Hg] [facility] 10-08-2022 07:54-0500 Heart rate 114 /min [facility] 10-08-2022 07:54-0500 Inhaled oxygen flow rate 4 L/min [facility] 10-08-2022 07:54-0500 Respiratory rate 28 /min [facility] 10-08-2022 07:54-0500 SaO2% (BldA) [Mass fraction] 93 % [facility] 10-08-2022 07:54-0500 Systolic blood pressure 196 mm[Hg] [facility] 09-22-2022 10:03-0500 Body mass index (BMI) [Ratio] 41.2 kg/m2 [facility] 09-22-2022 10:03-0500 Body weight 122.92 kg [facility] 09-22-2022 10:03-0500 Diastolic blood pressure 149 mm[Hg] [facility] 09-22-2022 10:03-0500 Heart rate 89 /min [facility] 09-22-2022 10:03-0500 Respiratory rate 20 /min [facility] 09-22-2022 10:03-0500 Systolic blood pressure 209 mm[Hg] [facility] 09-11-2022 08:09-0500 Body height 172.72 cm [facility] Work Phone: 09-11-2022 08:09-0500 Body mass index (BMI) [Ratio] 43.2 kg/m2 [facility] 09-11-2022 08:09-0500 Body temperature 97.5 [degF] [facility] 09-11-2022 08:09-0500 Body weight 129.1 kg [facility] 09-11-2022 08:09-0500 Diastolic blood pressure 124 mm[Hg] [facility] 09-11-2022 08:09-0500 Heart rate 100 /min [facility] 09-11-2022 08:09-0500 Inhaled oxygen flow rate 3 L/min [facility] 09-11-2022 08:09-0500 Respiratory rate 18 /min [facility] 09-11-2022 08:09-0500 SaO2% (BldA) [Mass fraction] 99 % [facility] 09-11-2022 08:09-0500 Systolic blood pressure 188 mm[Hg] [facility] 08-14-2022 08:18-0500 Body height 175.26 cm [facility] Work Phone: 08-14-2022 08:18-0500 Body mass index (BMI) [Ratio] 40.1 kg/m2 [facility] 08-14-2022 08:18-0500 Body weight 123.37 kg [facility] 08-14-2022 08:18-0500 Diastolic blood pressure 103 mm[Hg] [facility] 08-14-2022 08:18-0500 Heart rate 92 /min [facility] 08-14-2022 08:18-0500 Respiratory rate 18 /min [facility] 08-14-2022 08:18-0500 SaO2% (BldA) [Mass fraction] 98 % [facility] 08-14-2022 08:18-0500 Systolic blood pressure 192 mm[Hg] [facility] 07-16-2022 12:37-0400 Body mass index (BMI) [Ratio] 41.1 kg/m2 [facility] 07-16-2022 12:37-0400 Body temperature 97.3 [degF] [facility] 07-16-2022 12:37-0400 Body weight 126.15 kg [facility] 07-16-2022 12:37-0400 Diastolic blood pressure 98 mm[Hg] [facility] 07-16-2022 12:37-0400 Heart rate 99 /min [facility] 07-16-2022 12:37-0400 Inhaled oxygen flow rate 3 L/min [facility] 07-16-2022 12:37-0400 Respiratory rate 20 /min [facility] 07-16-2022 12:37-0400 SaO2% (BldA) [Mass fraction] 95 % [facility] 07-16-2022 12:37-0400 Systolic blood pressure 170 mm[Hg] [facility] 07-08-2022 11:38-0400 Diastolic blood pressure 139 mm[Hg] [facility] 07-08-2022 11:38-0400 Systolic blood pressure 196 mm[Hg] [facility] 07-08-2022 08:22-0400 Body mass index (BMI) [Ratio] 40.8 kg/m2 [facility] 07-08-2022 08:22-0400 Body weight 125.64 kg [facility] 07-08-2022 08:22-0400 Heart rate 96 /min [facility] 07-08-2022 08:22-0400 Inhaled oxygen flow rate 3 L/min [facility] 07-08-2022 08:22-0400 Respiratory rate 22 /min [facility] 07-08-2022 08:22-0400 SaO2% (BldA) [Mass fraction] 92 % [facility] 06-25-2022 09:10-0400 Body height 175.26 cm [facility] Work Phone: 06-25-2022 09:10-0400 Body weight 122.46 kg [facility] 06-25-2022 09:10-0400 Heart rate 111 /min [facility] 06-25-2022 09:10-0400 Inhaled oxygen flow rate 2 L/min [facility] 06-25-2022 09:10-0400 SaO2% (BldA) [Mass fraction] 94 % [facility] 06-10-2022 09:44-0400 Body height 175.26 cm [facility] Work Phone: 06-10-2022 09:44-0400 Body mass index (BMI) [Ratio] 40.3 kg/m2 [facility] Work Phone: 06-10-2022 09:44-0400 Body weight 123.83 kg [facility] Work Phone: 06-10-2022 09:44-0400 Diastolic blood pressure 106 mm[Hg] [facility] Work Phone: 06-10-2022 09:44-0400 Heart rate 95 /min [facility] Work Phone: 06-10-2022 09:44-0400 Respiratory rate 20 /min [facility] Work Phone: 06-10-2022 09:44-0400 SaO2% (BldA) [Mass fraction] 92 % [facility] Work Phone: 06-10-2022 09:44-0400 Systolic blood pressure 181 mm[Hg] [facility] Work Phone: 03-16-2022 14:23-0400 Body mass index (BMI) [Ratio] 40.1 kg/m2 [facility] Work Phone: 03-16-2022 14:23-0400 Body temperature 97.8 [degF] [facility] Work Phone: 03-16-2022 14:23-0400 Body weight 123.37 kg [facility] Work Phone: 03-16-2022 14:23-0400 Diastolic blood pressure 98 mm[Hg] [facility] Work Phone: 03-16-2022 14:23-0400 Heart rate 74 /min [facility] Work Phone: 03-16-2022 14:23-0400 Inhaled oxygen flow rate 2 L/min [facility] Work Phone: 03-16-2022 14:23-0400 Respiratory rate 17 /min [facility] Work Phone: 03-16-2022 14:23-0400 SaO2% (BldA) [Mass fraction] 95 % Kenneth [facility] Work Phone: 03-16-2022 14:23-0400 Systolic blood pressure 164 mm[Hg] Kenneth [facility] Work Phone: 02-07-2013 10:21-0400 BMI (Body Mass Index) 38.93 kg/m2 [facility] [place] Work Phone: 02-07-2013 10:21-0400 Body Temperature 97.5 [degF] Kathryn Trav [facility] [employer] Work Phone: 02-07-2013 10:21-0400 BP Diastolic 86 mm[Hg] Kathryn Trav [facility] [employer] Work Phone: 02-07-2013 10:21-0400 BP Systolic 138 mm[Hg] Kathryn Trav [facility] [employer] Work Phone: 02-07-2013 10:21-0400 BSA (Body Surface Area) 2.28 m2 Kathryn Toptal [facility] Work Phone: 02-07-2013 10:21-0400 Pulse (Heart Rate) 78 /min Kathryn Toptal [facility] [employer] Work Phone: 02-07-2013 10:21-0400 Respiratory Rate 16 /min Kathryn Toptal [facility] [employer] Work Phone: 02-07-2013 10:21-0400 Weight 116.58 kg Kathryn Toptal [facility] [employer] Work Phone: 10-18-2012 11:21-0500 Height 173.35 cm Kathryn Toptal [facility] [employer] Work Phone: Encounters Encounter Date Encounter Type Care Provider Facility Start: 03-27-2025 End: 03-27-[address] Kenneth Villanueva DO Work Phone: [facility] Work Phone: Start: 03-27-2025 End: 03-27-2025 Felicia Gonzalez NP-C -[facility] Work Phone: Start: 03-26-2025 End: 03-26-2025 Emergency department patient visit Dr. Kenneth Villanueva DO Work Phone: [facility] Work Phone: Start: 03-26-2025 End: 03-26-2025 Dr. Kenneth Villanueva DO Work Phone: -Emergency Department Work Phone: Start: 03-08-2025 End: 03-08-2025 Patient encounter procedure Flori Lee NP-C -[facility] Work Phone: Start: 03-08-2025 End: 03-08-2025 Flori Lee NP-C -[facility] Work Phone: Start: 03-08-2025 End: 03-08-2025 ambulatory Kenneth Villanueva Facility:[facility] Start: 02-07-2025 Encounter for gynecological examination (general) (routine) without abnormal findings Felicia Gonzalez NP [facility] Start: 02-07-2025 End: 02-07-2025 [facility]. [facility] Start: 02-07-2025 End: 02-07-2025 Emergency department patient visit Dr. Kenneth Villanueva DO Work Phone: -Emergency Department Work Phone: Start: 02-06-2025 End: 02-06-[address] Kenneth Villanueva DO Work Phone: [facility] Work Phone: Start: 02-06-2025 End: 02-06-2025 Patient encounter procedure Felicia Gonzalez NP-C -Laboratory, Specimen Work Phone: Start: 02-06-2025 End: 02-06-2025 Felicia Gonzalez NP-C -Laboratory Specimen Work Phone: Start: 02-06-2025 End: 02-06-2025 Patient encounter procedure Felicia Gonzalez [employer]CISION GRINDER-C -[facility] Work Phone: Start: 02-06-2025 End: 02-06-2025 Patient encounter status Felicia Gonzalez [employer] GRINDER-C [facility] Start: 02-06-2025 End: 02-06-2025 Felicia Gonzalez PRECISION GRINDER-C -[facility] Work Phone: Start: 02-06-2025 End: 02-06-2025 ambulatory Felicia Gonzalez [employer]ER Facility:[facility] Start: 02-06-2025 End: 02-06-2025 ambulatory Felicia Gonzalez [employer]ER Facility:[facility] Start: 01-26-2025 ambulatory Dominick Mcclendon Facility:[facility] Start: 01-26-2025 Non-patient / Non-visit Dr. Dominick fair DO -[facility] Start: 01-26-2025 Dr. Dominick Mcclendon DO -[facility] Start: 01-19-2025 End: 01-19-[address] Kenneth Villanueva DO Work Phone: [facility] Work Phone: Start: 01-19-2025 End: 01-19-2025 Patient encounter procedure Flori Lee [employer]ER-C -Pulmonary Services/Neurology Work Phone: Start: 01-19-2025 End: 01-19-2025 Flori Lee [employer]ER-C -Pulmonary Services/Neurology Work Phone: Start: 01-19-2025 End: 01-19-2025 Patient encounter procedure Kianna Desir PA -[facility] Work Phone: Start: 01-19-2025 End: 01-19-2025 Kianna BENJAMIN -[facility] Work Phone: Start: 01-19-2025 End: 01-19-2025 ambulatory Kenneth Villanueva Facility:[facility] Start: 01-19-2025 End: 01-19-2025 ambulatory Kenneth Villanueva Facility:[facility] Start: 01-17-2025 End: 01-17-2025 Patient encounter procedure Flori Lee [employer] GRINDERLoidaC -Pulmonary Services/Neurology Work Phone: Start: 01-17-2025 End: 01-17-2025 Flori Lee [employer]CISION GR[employer]ER-C -Pulmonary Services/Neurology Work Phone: Start: 01-17-2025 End: 01-17-2025 ambulatory Dominick [facility] Facility:[facility] Start: 01-02-2025 End: 01-02-[address] Kenneth Villanueva DO -Laboratory Work Phone: Start: 01-02-2025 End: 01-02-2025 Dr. Kenneth Villanueva DO -Laboratory Work Phone: Start: 01-02-2025 End: 01-02-2025 ambulatory [facility] Facility:[facility] Start: 12-13-2024 End: 12-13-2024 Patient encounter procedure Flori Lee [employer]ER-C -[facility] Work Phone: Start: 12-13-2024 End: 12-13-2024 Flori Lee [employer] GR[employer]ER-C -[facility] Work Phone: Start: 12-13-2024 End: 12-13-2024 ambulatory [facility] Facility:[facility] Start: 10-11-2024 End: 10-11-[address] Evon Ryan MD -Laboratory Work Phone: Start: 10-11-2024 End: 10-11-2024 ambulatory Evon Ryan Facility:[facility] Start: 07-25-2024 ambulatory [facility] Facility: [facility] Start: 07-25-2024 End: 07-25-2024 ambulatory [facility] Facility:[facility] Start: 07-18-2024 End: 07-18-2024 ambulatory [facility] Facility:[facility] Start: 06-20-2024 End: 06-20-2024 Patient encounter procedure Rajiv Baer Work Phone: Podiatry Comment on above: Diabetic polyneuropa thy associated with type 2 diabetes mellitus (HCC) (Primary Dx); Acquired hallux valgus, unspecified laterality Start: 06-20-2024 End: 06-20-2024 ambulatory RAJIV BAER Facility:[facility] Start: 06-20-2024 End: 06-20-2024 Subsequent hospital visit by physician [facility] Work Phone: Radiology Comment on above: Pain [R52] Start: 06-13-2024 End: 06-13-2024 ambulatory Kenneth Villanueva Facility:[facility] Start: 06-01-2024 End: 06-01-2024 ambulatory Kenneth Villanueva Facility:[facility] Start: 03-21-2024 ambulatory Kenneth Villanueva OLS Facil ity:[facility] Start: 03-15-2024 End: 03-15-2024 ambulatory Kenneth Villanueva Facility:[facility] Start: 02-04-2024 End: 02-04-[address] Kenneth Villanueva Work Phone: [facility] Work Phone: Start: 02-04-2024 End: 02-04-[address] Kenneth Villanueva Work Phone: [facility]-Laboratory, Specimen Work Phone: Start: 02-03-2024 End: 02-03-[address] Kenneth Villanueva Work Phone: [facility] Work Phone: Start: 12-07-2023 End: 12-07-[address] Kenneth Villanueva Work Phone: [facility] Work Phone: Start: 11-26-2023 End: 11-26-2023 Emergency department patient visit Dr. Kenneth Villanueva Work Phone: [facility]-Emergency Department Work Phone: Start: 11-26-2023 End: 11-26-2023 Patient encounter procedure Nilda Cruz APRN.HERBOLOGIST Work Phone: [facility] Comment on above: Headache, unspecifie d headache type (Primary Dx); SOB (shortness of breath) Start: 11-17-2023 End: 11-17-2023 Emergency department patient visit Dr. Kenneth Villanueva Work Phone: [facility]-Emergency Department Work Phone: Start: 10-08-2023 End: 10-09-2023 Emergency department patient visit Kenneth STEIN [facility]-Emergency Department Work Phone: Start: 09-24-2023 End: 09-24-2023 Patient encounter procedure Kenneth STEIN [facility]-Pulmonary Medicine [facility] Work Phone: Start: 09-14-2023 Non-patient / Non-visit Kenneth STEIN [facility] Start: 09-13-2023 End: 09-13-2023 ambulatory Kenneth Villanueva [facility] Work Phone: Start: 09-13-2023 End: 09-13-2023 Patient encounter procedure Kenneth STEIN [facility]-Pulmonary Services/Neurology Work Phone: Start: 09-01-2023 End: 09-01-2023 Patient encounter procedure Kenneth STEIN [facility]-Laboratory Work Phone: Start: 07-28-2023 End: 07-28-[address] Kenneth Villanueva Work Phone: [facility] Work Phone: Start: 07-28-2023 End: 07-28-[address] Kenneth Villanueva Work Phone: [facility] Start: 07-19-2023 End: 07-19-[address] Kenneth Villanueva Work Phone: [facility]-Occupational Therapy Work Phone: Start: 06-22-2023 End: 06-22-[address] Kenneth Villanueva Work Phone: [facility] Work Phone: Start: 05-31-2023 End: 05-31-2023 Patient encounter procedure Steven Cunningham MD Work Phone: Orthopaedics Comment on above: Closed displaced fra cture of middle phalanx of right little finger with routine healing, subsequent encounter (Primary Dx); Morbid obesity (HCC) Start: 05-31-2023 End: 05-31-2023 Subsequent hospital visit by physician Xr [facility] Work Phone: Radiology Comment on above: Pain of finger of ri ght hand [M79.644] Start: 05-27-2023 End: 05-27-[address] Kenneth Villanueva Work Phone: [facility]-Pulmonary [facility] [place] Work Phone: Start: 05-26-2023 Orders Only Steven Cunningham MD Work Phone: Orthopaedics Comment on above: Pain of finger of ri ght hand (Primary Dx) Start: 05-14-2023 End: 05-14-2023 [facility] Work Phone: Start: 05-14-2023 End: 05-14-2023 Patient encounter procedure Kenneth Villanueva [facility]-Outpatient Breast Imaging Work Phone: Start: 05-10-2023 End: 05-10-2023 [facility] Work Phone: Start: 05-10-2023 End: 05-10-2023 Patient encounter procedure Kenneth Villanueva [facility]-Pulmonary Services/Neurology Work Phone: Start: 05-07-2023 End: 05-07-2023 Patient encounter procedure Kenneth STEIN [facility] Work Phone: Start: 04-30-2023 End: 04-30-2023 Patient encounter procedure Kenneth STEIN [facility] Radiology Start: 04-27-2023 End: 04-27-2023 Emergency department patient visit Kenneth STEIN [facility]-Emergency Department Work Phone: Start: 02-19-2023 End: 02-19-2023 Patient encounter procedure Kenneth STEIN [facility]-Laboratory, Specimen Work Phone: Start: 02-19-2023 End: 02-19-2023 Patient encounter procedure Kenneth STEIN [facility] Work Phone: Start: 02-02-2023 Non-patient / Non-visit Kenneth STEIN [facility] Start: 02-02-2023 End: 02-02-2023 Non-patient / Non-visit Kenneth STEIN [facility] [facility] Work Phone: Start: 02-02-2023 End: 02-02-2023 Admission to same day surgery center Kenneth STEIN [facility]-Surgical Day Care Start: 02-02-2023 End: 02-02-2023 ambulatory Kenneth Villanueva [facility] Work Phone: Start: 01-29-2023 End: 01-29-2023 ambulatory Kenneth Lalit [facility] Work Phone: Start: 01-29-2023 End: 01-29-2023 Patient encounter procedure Kenneth STEIN [facility]-Laboratory, OP Pavilion Start: 01-29-2023 End: 01-29-2023 Patient encounter procedure Kenneth STEIN [facility] Start: 01-27-2023 End: 01-27-2023 Patient encounter procedure Kenneth STEIN [facility]-Pulmonary Medicine [facility] Start: 01-22-2023 End: 01-22-2023 Patient encounter procedure Kenneth STEIN [facility] Start: 11-27-2022 End: 11-27-2022 Emergency department patient visit Kenneth [facility]-Emergency Department Start: 11-09-2022 End: 11-09-2022 ambulatory Kenneth [facility] Work Phone: Start: 11-09-2022 End: 11-09-2022 Patient encounter procedure Kenneth [facility]-Laboratory, Specimen Start: 11-09-2022 End: 11-09-2022 Patient encounter procedure [facility] Start: 11-04-2022 End: 11-04-2022 ambulatory [facility] Work Phone: Start: 11-04-2022 End: 11-04-2022 Patient encounter procedure [facility]-Outpatient Pavilion Ultrasound Start: 10-31-2022 Non-patient / Non-visit Kenneth [facility] Start: 2022 End: 2022 ambulatory [facility] Work Phone: Start: 2022 End: 2022 Patient encounter procedure [facility]-Pulmonary Services/Neurology Start: 10-29-2022 ambulatory Facility:[facility] Start: 10-28-2022 End: 10-28-2022 Patient encounter procedure [facility]-Pulmonary Medicine [facility] Start: 10-26-2022 End: 10-26-2022 ambulatory [facility] Work Phone: Start: 10-26-2022 End: 10-26-2022 Patient encounter procedure Kenneth [facility]-Laboratory, Specimen Start: 10-26-2022 End: 10-26-2022 Patient encounter procedure [facility] Start: 10-26-2022 End: 10-26-2022 Patient encounter procedure [facility] [facility] Start: 10-20-2022 End: 10-20-2022 Emergency department patient visit [facility]-Emergency Department Start: 10-08-2022 End: 10-08-2022 ambulatory Kenneth [facility] Work Phone: Start: 10-08-2022 End: 10-08-2022 Patient encounter procedure Kenneth [facility]-Cardiovascula r Services Start: 09-22-2022 End: 09-22-2022 Patient encounter procedure Kenneth [facility] Start: 09-11-2022 End: 09-11-2022 Emergency department patient visit Kenneth [facility]-Emergency Department Start: 08-14-2022 Non-patient / Non-visit Kenneth [facility] Start: 08-14-2022 End: 08-14-2022 ambulatory Kenneth [facility] Work Phone: Start: 08-14-2022 End: 08-14-2022 Patient encounter procedure [facility] Start: 07-16-2022 End: 07-16-2022 Patient encounter procedure [facility]-Pulmonary Medicine [facility] Start: 07-08-2022 End: 07-08-2022 Patient encounter procedure [facility] Start: 06-26-2022 Non-patient / Non-visit Kenneth [facility] Start: 06-25-2022 End: 06-25-2022 Patient encounter procedure [facility]-Cardiovascula r Services Start: 06-25-2022 Non-patient / Non-visit Kenneth [facility] Start: 06-24-2022 End: 06-24-2022 ambulatory Kenneth [facility] Work Phone: Start: 06-24-2022 End: 06-24-2022 Patient encounter procedure [facility]-Pulmonary Services/Neurology Start: 06-10-2022 End: 06-10-2022 Patient encounter procedure [facility] Start: 06-06-2022 End: 06-06-2022 ambulatory Kenneth [facility] Work Phone: Start: 06-06-2022 End: 06-06-2022 Patient encounter procedure Kenneth [facility]-Laboratory Start: 03-16-2022 End: 03-16-2022 Patient encounter procedure [facility]-Pulmonary Medicine [facility] Start: 10-11-2018 End: 10-12-2018 Patient encounter procedure STEPHEN DAVIDSON Facility:B Start: 05-03-2018 End: 05-04-2018 [facility] Start: 04-24-2016 End: 04-30-2016 Evaluation and management of inpatient CHRIS Natacha () [facility] Procedures Date Procedure Procedure Detail Performing Clinician Start: 03-26-2025 Benzodiazepine measu rement, urine Dr. Kenneth Villanueva DO Work Phone: Start: 03-26-2025 Cocaine measurement, urine Dr. Kenneth Villanueva DO Work Phone: Start: 03-26-2025 Methadone measurement, urine Dr. Kenneth Villanueva DO Work Phone: Start: 03-26-[address] Kenneth Villanueva DO Work Phone: Start: 03-26-2025 Urine microscopy: red cells Dr. Kenneth Villanueva DO Work Phone: Start: 03-26-[address] Kenneth Villanueva DO Work Phone: Start: 03-26-2025 Urnls dip stick/tabl et reagent auto microscopy Dr. Kenneth Villanueva DO Work Phone: Start: 03-26-2025 Blood count smear mc rscp w/mnl difrntl wbc count Dr. Kenneth Villanueva DO Work Phone: Start: 03-26-[address] Kenneth Villanueva DO Work Phone: Start: 03-26-2025 Mean corpuscular hem oglobin concentration determination Dr. Kenneth Villanueva DO Work Phone: Start: 03-26-2025 Nucleated red blood cell count procedure Dr. Kenneth Villanueva DO Work Phone: Start: 03-26-2025 Platelet mean volume determination Dr. Kenneth Villanueva DO Work Phone: Start: 03-26-2025 CT of head without contrast Dr. Kenneth Villanueva DO Work Phone: Start: 03-26-2025 Plain chest X-ray Dr. Cruz Villanueva DO Work Phone: Start: 02-07-2025 Plain chest X-ray Dr. Cruz Villanueva DO Work Phone: Start: 02-06-2025 Liquid based cervica l cytology screening Dr. Kenneth Villanueva DO Work Phone: Comment on above: NEGATIVE FOR INTRAEP ITHELIAL LESION OR MALIGNANCY.REACTIVE CELLULAR CHANGES AND/OR REPAIR ARE PRESENT.TRICHOMONAS VAGINALIS IS PRESENT. This liquid based Th inPrep(R) pap test was screened withthe use of an image guided system. Start: 02-06-2025 Neisseria gonorrhoea e nucleic acid detection Dr. Kenneth Villanueva DO Work Phone: Start: 01-02-[address] Kenneth Villanueva DO Work Phone: Start: 01-02-2025 Total cholesterol:HD L ratio measurement Dr. Kenenth Villanueva DO Work Phone: Start: 10-11-2024 Assay of phosphorus inorganic Dr. Kenneth Villanueva DO Work Phone: Start: 10-11-2024 Measurement of renal function Dr. Kenneth Villanueva DO Work Phone: Comment on above: GFR Calc Start: 02-04-2024 Investigation of tra nsfusion reaction Dr. Kenneth Villanueva Work Phone: Start: 02-04-2024 Respiratory microbia l culture Dr. Kenneth Villanueva Work Phone: Start: 11-26-2023 Plain chest X-ray Dr. Cruz Villanueva Work Phone: Start: 11-26-2023 CT of head without contrast Dr. Kenneth Villanueva Work Phone: Start: 11-17-2023 SARS-CoV-2, Influenz a & RSV (PCR) Dr. Kenneth Villanueva Work Phone: Start: 11-17-2023 Plain chest X-ray Dr. Cruz Villanueva Work Phone: Start: 07-28-2023 Plain chest X-ray Dr. Cruz Villanueva Work Phone: Start: 05-31-2023 Radex fingr minimum 2 views Steven Cunningham MD Work Phone: Start: 05-14-2023 Mammography Kenneth leroy OLS Start: 05-10-2023 Screening mammography Cruz Villanueva O[facility] Start: 05-07-2023 Diagnostic radiograp hy of finger Kenneth Villanueva O[facility] Start: 04-30-2023 Diagnostic radiograp hy of finger Kenneth Villanueva O[facility] Start: 04-27-2023 Plain x-ray of hand Mar kimani Lalit OLS Start: 04-27-2023 Radiologic examinati on of knee Kenneth Villanueva OLS Start: 04-27-2023 CT of head without contrast Kenneth STEIN Start: 02-19-2023 Urine culture Kenneth STEIN Start: 02-02-2023 Hysteroscopy with endometrial ablation Kenneth STEIN Start: 11-27-2022 Plain chest X-ray Kenneth Villanueva Start: 11-04-2022 Pelvic echography Kenneth Villanueva Start: 11-04-2022 Transvaginal echography Kenneth Villanueva Start: 10-20-2022 Computed tomography of abdomen and pelvis with contrast Kenneth Villanueva Start: 10-08-2022 Plain chest X-ray Kenneth Villanueva Cytopathology proced ure, preparation of smear, genital source Kenneth Villanueva Investigation of tra nsfusion reaction Kenneth Villanueva Plan of Treatment Date Care Activity Detail Author Start: 2047 PNEUMOCOCCAL (3 - PP SV23 or PCV20) PNEUMOCOCCAL (3 - PPSV23 or PCV20) [facility] Start: 2047 Pneumococcal vaccination Pneum ococcal Vaccine (3 - PPSV23 or PCV20) [facility] Start: 03-26-2025 [facility] Start: 03-26-2025 End: 03-26-2025 [facility] Start: 03-26-2025 End: 03-26-2025 [facility] Start: 02-07-2025 [facility] Start: 02-06-2025 Chlamydia deoxyribon ucleic acid detection [facility] Start: 02-06-2025 Liquid based cervica l cytology screening [facility] Start: 02-01-2025 Patient referral [facility] Work Phone: Start: 06-04-2024 Covid-19 Vaccine ( season) Covid-19 Vaccine () [facility] Start: 06-04-2024 Influenza vaccination Influenza Vacc ine (#1) [facility] Start: 11-26-2023 [facility] Start: 11-17-2023 [facility] Start: 11-17-2023 [facility] Start: 10-09-2023 [facility] Start: 10-04-2023 Depression Assessment Depression Ass essment [facility] Start: 06-04-2023 Covid-19 Vaccine ( season) Covid-19 Vaccine () [facility] Start: 06-04-2023 Influenza vaccination [facility] Start: 05-07-2023 Patient referral [facility] Work Phone: Start: 02-02-2023 Patient discharge [facility] Start: 02-02-2023 Procedure discontinued [facility] Start: 02-02-2023 Ambulation without limitation [facility] Start: 02-02-2023 Medical regimen orde rs management [facility] Start: 02-02-2023 Medication education [facility] Start: 02-02-2023 Taking patient vital signs [facility] Start: 02-02-2023 Vital signs measurements [facility] Start: 02-02-2023 [facility] Start: 02-02-2023 Anes hysteroscopy&/hysterosalpi ngography w/bx ANESTH HYSTEROSCOPE/GRAPH [facility] Start: 02-02-2023 Hysteroscopy endomet rial ablation HYSTEROSCOPY ABLATION [facility] Start: 2022 Mammography [facility] Start: 2022 Screening for malign ant neoplasm of breast Mammogram Screening [facility] Start: 10-04-2022 DEPRESSION ASSESSMENT DEPRESSION ASS ESSMENT [facility] Start: 08-07-2021 Covid-19 Vaccine (3 - Moderna series) Covid-19 Vaccine (3 - Moderna series) [facility] Start: 06-29-2021 HPV TESTING HPV TESTING [facility] Start: 06-29-2021 PAP TESTING PAP TESTING [facility] Start: 06-29-2021 Screening for malign ant neoplasm of cervix [facility] Start: 05-19-2019 3 comp foot exam completed DIABETIC FOOT EXAM [facility] Start: 05-19-2019 Diabetic foot examination Diabetic F oot Exam [facility] Start: 04-29-2019 Urine microalbumin profile [facility] Start: 03-15-2018 Hepatitis B screening URINE ALBUMIN:CREATININE RATIO [facility] Start: 03-15-2018 Hepatitis B surface antibody level LDL CHOLESTEROL [facility] Start: 09-14-2017 Hemoglobin A1c measurement HbA1C [facility] Start: 09-14-2017 Hemoglobin A1c/Hemoglobin.total in Blood HBA1C [facility] Start: 06-17-2017 End: 06-17-2017 Appointment Appointment [facility] [place] Work Phone: Start: 06-03-2017 End: 06-03-2017 Appointment Appointment [facility] [place] Work Phone: Start: 05-07-2017 Glaucoma screening Dilated Retinal E xam [facility] Start: 05-07-2017 Hepatitis C antibody , confirmatory test DILATED RETINAL EXAM [facility] Start: 2001 Hepatitis B Vaccine (1 of 3 - 19+ 3-dose series) Hepatitis B Vaccine (1 of 3 - 19+ 3-dose series) [facility] Start: 2000 ANNUAL PCP TEAM CHECKMAN EULALIA DISEASE VISIT ANNUAL PCP TEAM CHRONIC DISEASE VISIT [facility] Start: 2000 Anxiety Screening Anxiety Screening [facility] Start: 2000 BP CONTROLLED (<130/80) BP CON TROLLED (<130/80) [facility] Start: 2000 Depression Screening Depression Scre ening [facility] Start: 04-29-1983 COVID-19 VACCINE (#1) COVID-19 VACCI NE (#1) [facility] Start: 1982 HEPATITIS B (1 of 3 - 3-dose series) HEPATITIS B (1 of 3 - 3-dose series) [facility] Start: 1982 Hepatitis B Vaccine (1 of 3 - 3-dose series) Hepatitis B Vaccine (1 of 3 - 3-dose series) [facility] CBC W Auto Different ial panel - Blood [facility] Work Phone: Chlamydia deoxyribon ucleic acid detection [facility] Cytology report of Cervical or vaginal smear or scraping Cyto stain.thin prep [facility] Exercise tolerance test [facility] Work Phone: Hepatitis C virus RN A assay [facility] Lipid 1996 panel - S micah or Plasma [facility] Measurement of respi ratory function [facility] Work Phone: Measurement of respi ratory function [facility] Neisseria gonorrhoea e rRNA [Presence] in Unspecified specimen by GURPREET with probe detection [facility] Path report.final Dx Spec [facility] Patient Education [facility] Work Phone: Patient referral [facility] Work Phone: PCR test for Chlamyd ia trachomatis [facility] Serologic test for syphilis [facility] Thyroid stimulating hormone measurement [facility] Work Phone: Troponin T.cardiac [Mass/volume] in Serum or Plasma by High sensitivity method [facility] Urine culture [facility] Work Phone: US Pelvis [facility] Pelvis transvaginal [facility] End: 06-24-2024 XR DIGIT GENERAL 3V FRONTAL/LAT/OBL RIGHT XR DIGIT GENERAL 3V FRONTAL/LAT/OBL RIGHT Radiology Routine Pain of finger of right hand 1 Occurrences starting 05/26/2023 until 06/24/2024 [facility] Work Phone: Comment on above: 1 Occurrences starti ng 05/26/2023 until 06/24/2024 XR Foot - bilateral AP and Lateral and oblique XR FOOT GENERAL 3V AP/LAT/OBL BILATERAL Radiology Routine Pain 06/20/2024 10:20 AM EDT [facility] Work Phone: [facility] Immunizations Immunization Date Immunization Notes Care Provider Angel espinal 07-16-2022 influenza, injectabl e, quadrivalent, preservative free Dr. Kenneth Villanueva Work Phone: [facility] 07-16-2022 influenza, seasonal, injectable [facility] 07-16-2022 influenza virus vacc ine, unspecified formulation Steven Cunningham MD Work Phone: [facility] 08-15-2021 influenza, injectabl e, quadrivalent, preservative free Dr. Kenneth Villanueva Work Phone: [facility] 08-15-2021 influenza, seasonal, injectable [facility] 07-02-2020 influenza, injectable,quadrivalent, preservative free, pediatric [facility] 09-03-2017 influenza, injectabl e, quadrivalent, preservative free Dr. Kenneth Villanueva Work Phone: [facility] 09-03-2017 influenza, seasonal, injectable [facility] 08-19-2016 influenza, injectabl e, quadrivalent, preservative free Dr. Kenneth Villanueva Work Phone: [facility] 08-19-2016 influenza, seasonal, injectable [facility] 08-19-2016 pneumococcal polysaccharide vaccine, 23 valent [facility] 08-04-2016 pneumococcal conjuga te vaccine, 13 valent Steven Cunningham MD Work Phone: [facility] Work Phone: 06-30-2016 influenza, injectabl e, quadrivalent, contains preservative Steven Cunningham MD Work Phone: [facility] 08-18-2015 influenza, seasonal, injectable Steven Cunningham MD Work Phone: [facility] 07-04-2014 influenza, seasonal, injectable Steven Cunningham MD Work Phone: [facility] 06-28-2012 influenza virus vacc ine, unspecified formulation Steven Cunningham MD Work Phone: [facility] Work Phone: 08-12-2010 influenza virus vacc ine, unspecified formulation Steven Cunningham MD Work Phone: [facility] 07-26-2009 influenza virus vacc ine, unspecified formulation Steven Cunningham MD Work Phone: [facility] Work Phone: 04-29-2009 tetanus toxoid, redu andrés diphtheria toxoid, and acellular pertussis vaccine, adsorbed Steven Cunningham MD Work Phone: [facility] Work Phone: 08-08-2007 influenza virus vacc ine, unspecified formulation Steven Cunningham MD Work Phone: [facility] Work Phone: 10-03-2003 pneumococcal polysaccharide vaccine, 23 valent Steven Cunningham MD Work Phone: [facility] Payers Date Payer Category Payer Self-pay [id number] 2023 Unknown [id number] 2015 Medicaid [employer] [id number] 2015-Present [phone] [address] [place] [address] Medicaid [id number] 2015 Medicare [employer] MY[employer]ARE [id number] 2015-Present [phone] [address] [place] [address] Medicare [id number] 2015 Unknown [id number] 1982 Unknown [id number] 1982 Unknown [id number] 1982 Unknown [id number] Unknown [id number] [id number] Unknown [id number] [id number] Unknown [id number] [id number] Unknown [id number] [id number] Unknown [id number] [id number] Unknown [id number] [id number] Unknown [id number] [id number] Unknown [id number] [id number] Unknown [id number] [id number] Unknown [id number] [id number] Unknown [id number] [id number] Unknown [id number] [id number] Unknown [id number] [id number] Unknown [id number] [id number] Unknown [id number] [id number] Unknown [id number] [id number] Unknown [id number] Unknown [id number] Unknown [id number] Social History Date Type Detail Facility Start: 06-10-2022 End: 06-22-2023 Tobacco smoking status OHIS Unknown if ever smoked [facility] Start: 04-01-2021 None [facility] Start: 11-07-2018 With Family [facility] Start: 04-01-2021 Non-smoker [facility] Start: 1980 Sex Assigned At Female [facility] Start: 04-22-2011 End: 03-26-2025 Tobacco smoking status NHIS Never smoked tobacco [facility] Work Phone: Start: 04-22-2011 Tobacco use and exposure Smokeless tobacco non-user [facility] Work Phone: Start: 05-01-2021 End: 06-20-2024 Alcohol intake Current non-drinker of alcohol (finding) [facility] Start: 05-01-2021 End: 05-10-2023 History of Social function [facility] Start: 05-01-2021 End: 05-10-2023 Tobacco use panel [facility] Adult Depression Screening Assessment 0 [facility] Start: 1980 Sex Assigned At Not on file [facility] Start: 01-25-2025 Sex Female (finding) [facility] NEGATED: Highlighted row [facility] Medical Equipment Procedure Code Equipment Code Equipment Original Text Equipment Identifier Dates [id number], [id number], [id number] Start: 05-28-2016 Comment on above: Test blood sugar(s) four (4) times daily. daily. Dx: Type 2 diabetes, controlled without complication. E11.9. Insulin: No USE WITH victoza pen s daily Goals Date Patient Goal Desired Activity /State Personal health goal Mental Status Date Assessment Result Facility 03-26-2025 Cognitive function Awake;Alert;Follows Co mmands [facility] Work Phone: 11-26-2023 Cognitive function Level Of Cons ciousness Awake;Alert;Appropriate;Follow s Commands [facility] Work Phone: 11-17-2023 Cognitive function Level Of Cons ciousness Awake;Alert;Appropriate;Follow s Commands [facility] Work Phone: 04-27-2023 Cognitive function Voice/Name [facility] Work Phone: 02-02-2023 Cognitive function Level Of Consciousness Sedated [facility] Work Phone: 02-02-2023 Cognitive function Voice/Name [facility] Work Phone: Clinical Notes 04-23-2016 to 03-26-2025 Note Date & Type Note Facility 03-26-2025 Radiology Diagnostic study note [facility] 03-26-2025 Radiology Diagnostic study note [facility] 03-26-2025 Discharge summary Note Date/Time March 26, 2025 9:20pm [facility] Medical Records Department [address] [place] [address] Emergency Department Summary 03/26/25 MR#: [id number] Acct: [id number] Name: CLIFTON CAGE Rep #:[id number] : 1980 44 From: Miguel Angel Parikh MD PCP: Dr. Kenneth Villanueva, DO Status:REG ER Location: ED HPI History of Present Illness Chief Complaint: Syncope Narrative Narrative: 44-year-old female past medical history of multiple medical problems presents with near syncopal/syncopal episode today. She states she feels very lightheaded and is seeing stars. She is on multiple medications. Her states that her vitals keep dropping. She does take antihypertensive medications. She reportedly had a syncopal episode on of last week, approximately 4 days ago. Today, she was trying to wake up her son for his third shift job, she felt very lightheaded. She states she almost blacked out and ripped the towel bar off the wall. Is not necessarily worse with standing. [facility] Medical History Near syncope Depression Anxiety Diabetes Bladder disease Low iron Fatty liver Easy bruising Neuropathy Injury of back Migraine headache Seizures Dietary restriction Bowel obstruction Chronic constipation Gastric reflux Central sleep apnea treated with adaptive servo-ventilation (ASV) device History of Holter monitoring History of echocardiogram History of stress test Failure to thrive Hypertension Cardiology follow-up encounter On home oxygen therapy Collapsed lung History of hiatal hernia Pneumonia HLD (hyperlipidemia) probable cardiogenic shock Class 2 severe obesity due to excess calories with serious comorbidity and body mass index (BMI) of 38.0 to 38.9 in adult COPD (chronic obstructive pulmonary disease) Chronic respiratory failure Bradycardia Lactic acidosis Diaphragmatic hernia congenital Chronic hypoxemic respiratory failure Diabetic autonomic neuropathy associated with type 2 diabetes mellitus Migraine without aura or status migrainosus Paroxysmal supraventricular tachycardia Restrictive lung disease secondary to obesity 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 Congenital diaphragmatic hernia BMI 40.0-44.9, adult Obstructive sleep apnea Morbid obesity Type 2 diabetes mellitus Home Medications ?Medication ?Instructions ?Recorded ?Last Taken ?Type pantoprazole 40 mg tablet,delayed 40 mg PO DAILY GERD/ reflux 11/07/18 02/02/23 05:00 History release PEP device #1 ea 10/08/22 Unknown Rx blood pressure monitor (Blood #1 ea 10/26/22 Unknown R x Pressure Kit) clonidine 0.2 mg/24 hr weekly 1 patch topical QWEEK Unknown History transdermal patch potassium chloride 10 mEq 10 meq PO BID 06/13/24 Unkno wn History tablet,extended release spironolactone 50 mg tablet 50 mg PO QDAY 06/13/24 Unk nown History tirzepatide 5 mg/0.5 mL mg subcut 06/13/24 Unknown H istory subcutaneous pen injector (Gregorio) dicyclomine 10 mg capsule 10 mg PO .qid IBS 07/18/24 U nknown History furosemide 40 mg tablet 40 mg PO QDAY 07/18/24 Unkno wn History irbesartan 150 mg tablet 300 mg PO QDAY 07/18/24 Unkn own History magnesium oxide 400 mg PO QDAY 07/18/24 Unkn own History psyllium husk 0.52 gram capsule 0.52 g PO QDAY 4 Unknown History (Fiber-Caps (psyllium husk)) topiramate 100 mg capsule,extended 150 mg PO QDAY 07/04 02/24 Unknown History release 24 hr (Trokendi XR) albuterol sulfate 90 mcg/actuation 2 puff inhalation Q 6H PRN SOB #8.5 12/13/24 Unknown Rx aerosol inhaler grams fluticasone furoate 200 1 inh inhalation DAILY #60 e a 12/13/24 Unknown Rx mcg-vilanterol 25 mcg/dose inhalation powder (Breo Ellipta) ipratropium 0.5 mg-albuterol 3 mg 3 ml inhalation .QID PRN SOB #180 12/13/24 Unknown Rx (2.5 mg base)/3 mL nebulization mL soln montelukast 10 mg tablet 10 mg PO QDAY #90 tabs 12/13 Unknown Rx amlodipine 10 mg tablet 10 mg PO BID #180 tabs 01/03 Unknown Rx handicap Placcard #1 ea 01/19/25 Unknown Rx labetalol 400 mg tablet 400 mg PO BID #60 tabs 01/19 Unknown Rx boric acid 600 mg vaginal 600 mg vaginal .QD 21 days # 21 ea 02/07/25 Unknown Rx suppository (Azo Boric Acid) epinephrine 0.3 mg/0.3 mL 0.3 mg (0.3 mL) IM Q10M PRN PRN 02/07/25 Unknown Rx injection, auto-injector (EpiPen) anaphylaxis #2 ea hydralazine 50 mg tablet See Rx Instructions .Route 0 02/28/25 Unknown Rx .COMPLEX #240 tabs fluoxetine 40 mg capsule 40 mg PO QDAY 03/08/25 Unkno wn History labetalol 200 mg tablet 400 mg PO 03/08/25 Unknown H istory nystatin 100,000 unit/gram topical applic topical 02/25 Unknown History cream tirzepatide 2.5 mg/0.5 mL 2.5 mg subcut QWEEK 03/08/25 Unknown History subcutaneous pen injector (Mounjaro) topiramate 50 mg capsule,extended 50 mg PO QDAY Unknown History release 24 hr (Trokendi XR) trazodone 50 mg tablet 50 mg PO QHS 03/08/25 Unknow n History atorvastatin 80 mg tablet 80 mg PO DAILY 03/26/25 Unkn own History gabapentin 100 mg capsule 100 mg PO TID 03/26/25 Unkno wn History sulfamethoxazole 800 1 tab PO Q12H 7 days #14 tab s 03/26/25 Unknown Rx mg-trimethoprim 160 mg tablet (Bactrim DS) Allergy/AdvReac Type Severity Reaction Status Date / Time amoxicillin Allergy Severe Anaphylaxis Verified 02/07/25 15:43 metronidazole Allergy Severe SOB Verified 02/07/25 15:43 nabumetone Allergy Unknown Unknown Verified 02/07/25 15:43 hydrocodone bitartrate (From Allergy Itching Verified 02/07/25 15:43 [place]) Penicillins Allergy Swelling Verified 02/07/25 15:43 carvedilol AdvReac Severe shortness Verified 02/07/25 15:43 of breath, chest pain doxycycline AdvReac Itching Verified 02/07/25 15:43 Family History Mother Diabetes Kidney disease Sister Diabetes Liver disease Kidney disease, Onset Age: 41 on dialysis Sister Diabetes Father Diabetes Hypertension Gangrene Surgical History Hx of colonoscopy Hx of ventral hernia repair S/P laparotomy History of removal of ovarian cyst History of section H/O tubal ligation History of open heart surgery Social History Smoking Status: Never smoker alcohol intake: never substance use type: does not use caffeine: Yes Type: carbonated beverages Number of servings: 1 and coffee Number of servings: 1 what type of physical activity do you participate in: walking frequency: daily duration: 15-30 minutes/day seatbelt use: always do you feel safe at home: Yes additional social history: but the don't live together. ROS ROS ED ROS Narrative Review of systems positive for syncope and near syncope. No chest pain or shortness of breath. No exacerbating or alleviating factors. No prodromal symptoms except for seeing stars. EXAM Physical Exam Narrative Exam Narrative: Afebrile. Vital signs noted. Nontoxic-appearing. Cardiovascular examination reveals regular rate and rhythm. Lungs are clear to auscultation bilaterally. Abdomen is soft, nontender, with normoactive bowel sounds. Moves all extremities. Opens eyes to command. PERRL, EOMI. Able to ambulate in ED. Const Vital Signs: 03/26/25 17:48 03/26/25 17:48 03/26/25 18:43 Temperature 98.6 F Temperature Source Oral Pulse Rate 87 Pulse Rate [Lying] 87 Pulse Rate [Sitting (for 1 minute prior to obtaining)] 89 Pulse Rate [Standing (for 1 minute prior to obtaining)] 89 Respiratory Rate 22 H Respiratory Effort Normal Non-Labored Respiratory Pattern Normal Blood Pressure 117/68 Blood Pressure [Lying] 112/68 Blood Pressure [Sitting (for 1 minute prior to obtaining)] 124/62 H Blood Pressure [Standing (for 1 minute prior to obtaining)] 111/63 Blood Pressure Mean 84 Blood Pressure Mean [Lying] 82 Blood Pressure Mean [Sitting (for 1 minute prior to obtaining)] 82 Blood Pressure Mean [Standing (for 1 minute prior to obtaining)] 79 Pulse Ox 95 Oxygen Delivery Method Room Air 03/26/25 18:47 03/26/25 19:00 03/26/25 20:00 Temperature Temperature Source Pulse Rate 86 84 80 Pulse Rate [Lying] Pulse Rate [Sitting (for 1 minute prior to obtaining)] Pulse Rate [Standing (for 1 minute prior to obtaining)] Respiratory Rate 31 H 23 H 27 H Respiratory Effort Respiratory Pattern Blood Pressure 111/63 112/79 108/59 L Blood Pressure [Lying] Blood Pressure [Sitting (for 1 minute prior to obtaining)] Blood Pressure [Standing (for 1 minute prior to obtaining)] Blood Pressure Mean 79 90 75 Blood Pressure Mean [Lying] Blood Pressure Mean [Sitting (for 1 minute prior to obtaining)] Blood Pressure Mean [Standing (for 1 minute prior to obtaining)] Pulse Ox 95 96 93 Oxygen Delivery Method Room Air Room Air Room Air MDM MDM MDM Narrative Medical decision making narrative: Differential diagnosis includes but not limited to dehydration versus orthostatic hypotension versus intravascular volume depletion versus vasovagal syncope/near syncope. EKG was obtained and interpreted by myself independently as normal sinus rhythm at 83 bpm without ectopy or acute ST changes. Slightly prolonged QTc of 495 which may be secondary to her multiple medications. I reviewed her initial laboratory work and she has slightly elevated white count of 11.6 which I think is nonspecific, hemoglobin normal at 13.8, no anemia. Platelet count normal at 260. Ethyl alcohol is negative. Review of her electrolyte panel shows normal sodium of 137 and potassium 4.5, glucose [id number] but normal anion gap of 14 so I doubt diabetic ketoacidosis or honk. High-sensitivity troponin is less than 6. Serum is negative. Urinalysis is consistent with UTI with 5 ketones and greater than 100 WBCs. This was sent for culture. She has multiple allergies to amoxicillin, penicillins, doxycycline, and nitrofurantoin. She was started on Bactrim DS and a prescription written to take twice a day for the next week. She states she has a follow-up appointment with her ASSEMBLER FITTER tomorrow at 11 AM. I reviewed the radiology report of the CT of the brain and there is no acute process. Chest x-ray interpreted by myself independently shows no pneumonia or pneumothorax. I reviewed the radiology report which confirms my independent interpretation. She was seen ambulating back from the bathroom once again and states that her symptoms are improving. I feel she can be discharged safely home with follow-up. Return instructions to the emergency department were reviewed. Disposition is discharged home in stable condition. History & Record Review Discussion w/independent historian: Patient and Family Lab Data Attestation: I reviewed the patient's lab results. Labs: Laboratory Results - last 24 hr 03/26/25 03/26/25 18:38 19:39 WBC 11.6 H RBC 4.89 Hgb 13.8 Hct 40.7 MCV 83.2 MCH 28.2 MCHC 33.9 RDW Std Deviation 39.8 RDW Coeff of Lillian 13.2 Plt Count 260 MPV 9.5 Immature Gran % (Auto) 0.300 Neut % (Auto) 73.2 H Lymph % (Auto) 18.6 L Arthur % (Auto) 6.7 Eos % (Auto) 0.9 Baso % (Auto) 0.3 Absolute Neuts (auto) 8.5 H Absolute Lymphs (auto) 2.16 Nucleated RBC % 0 Sodium 137 Potassium 4.5 Chloride 101 Carbon Dioxide 22.2 Anion Gap 14 BUN 16 Creatinine 1.09 Estim Creat Clear Calc 90.92 Est GFR (MDRD) Non-Af 65 BUN/Creatinine Ratio 14.2 Glucose 245 H Calcium 8.9 Total Bilirubin 0.64 AST 44 H ALT 52 H Alkaline Phosphatase 84 Troponin T High Sens < 6 Total Protein 7.0 Albumin 3.8 Globulin 3.2 Albumin/Globulin Ratio 1.2 Serum , Qual NEGATIVE Urine Color Yellow Urine Clarity Clear Urine pH 5.0 Ur Specific [place] 1.025 Urine Protein 100 H Urine Glucose (UA) Normal Urine Ketones 5 H Urine Occult Blood Negative Urine Nitrite Negative Urine Bilirubin Negative Urine Urobilinogen Normal Ur Leukocyte Esterase 500 H Urine RBC 0 SEEN Urine WBC >100 SEEN Ur Squamous Epith Cells 5-10 SEEN Calcium Oxalate Crystal 1+ Urine Bacteria 2+ Hyaline Casts 5-10 SEEN Urine Mucus 1+ Urine Opiates Screen NEGATIVE U Buprenorphine Qual NEGATIVE Ur Oxycodone Screen NEGATIVE Urine Methadone Screen NEGATIVE Urine Fentanyl Screen NEGATIVE Ur Barbiturates Screen NEGATIVE Ur Phencyclidine Scrn NEGATIVE Ur Amphetamines Screen NEGATIVE U Benzodiazepines Scrn NEGATIVE Urine Cocaine Screen NEGATIVE U Cannabinoids Screen NEGATIVE Ethyl Alcohol < 10.1 Radiography Diagnostic Testing: Clinical Impression(s) from Imaging Studies Chest X-Ray 03/26/25 18:27 IMPRESSION: No acute cardiopulmonary abnormality. Reading Location: [facility] Brain CT 03/26/25 18:28 IMPRESSION: No acute intracranial abnormality. Reading Location: [id number] Discharge Plan Triage Chief Complaint: Syncope ED Provider: Miguel Angel Parikh Dx/Rx/DC Orders Clinical Impression: Urinary tract infection, Near syncope, Type 2 diabetes mellitus Instructions: ED Fainting, Uncertain Cause, ED Near-Fainting, Uncertain Cause, ED Cystitis Female Adult Prescriptions: New sulfamethoxazole-trimethoprim [Bactrim DS] 800-160 mg tablet 1 tab PO Q12H 7 Days Qty: 14 0RF No Action (DME) blood pressure monitor [Blood Pressure Kit] Kit See Rx Instructions .Route Qty: 1 0RF Rx Instructions: As directed (DME) PEP device See Rx Instructions .ROUTE .MEDSUPPLY Qty: 1 0RF Rx Instructions: with training irbesartan 150 mg tablet 300 mg PO QDAY psyllium husk [Fiber-Caps (psyllium husk)] 0.52 gram capsule 0.52 g PO QDAY furosemide 40 mg tablet 40 mg PO QDAY magnesium oxide 400 mg magnesium capsule 400 mg PO QDAY clonidine 0.2 mg/24 hr patch weekly 1 patch topical QWEEK potassium chloride 10 mEq tablet extended release 10 meq PO BID spironolactone 50 mg tablet 50 mg PO QDAY Mounjaro 5 mg/0.5 mL pen injector subcut topiramate [Trokendi XR] 100 mg capsule,extended release 24hr 150 mg PO QDAY albuterol sulfate 90 mcg/actuation HFA aerosol inhaler 2 puff inhalation Q6H PRN (Reason: SOB) Qty: 8.5 11RF Breo Ellipta 200-25 mcg/dose blister with device 1 inh inhalation DAILY Qty: 60 11RF ipratropium-albuterol 0.5 mg-3 mg(2.5 mg base)/3 mL solution for nebulization 3 ml inhalation .QID PRN (Reason: SOB) Qty: 180 6RF montelukast 10 mg tablet 10 mg PO QDAY Qty: 90 3RF labetalol 400 mg tablet 400 mg PO BID Qty: 60 11RF (DME) handicap Placcard See Rx Instructions .Route .MEDSUPPLY Qty: 1 0RF Rx Instructions: Dx: COPD Exp: 01/2030 fluoxetine 40 mg capsule 40 mg PO QDAY labetalol 200 mg tablet 400 mg PO trazodone 50 mg tablet 50 mg PO QHS nystatin 100,000 unit/gram cream topical topiramate [Trokendi XR] 50 mg capsule,extended release 24hr 50 mg PO QDAY Mounjaro 2.5 mg/0.5 mL pen injector 2.5 mg subcut QWEEK Rx Instructions: for 4 weeks dicyclomine 10 mg capsule 10 mg PO .qid pantoprazole 40 MG tablet 40 mg PO DAILY epinephrine [EpiPen] 0.3 mg/0.3 mL auto-injector 0.3 mg IM Q10M PRN PRN (Reason: anaphylaxis) Qty: 2 0RF Rx Instructions: for 2 doses boric acid [Azo Boric Acid] 600 mg suppository 600 mg vaginal .QD 21 Days Qty: 21 0RF atorvastatin 80 mg tablet 80 mg PO DAILY gabapentin 100 mg capsule 100 mg PO TID amlodipine 10 mg tablet 10 mg PO BID Qty: 180 3RF hydralazine 50 mg tablet See Rx Instructions .ROUTE .COMPLEX Qty: 240 3RF Dose Instruction: TAKE 1 TABLET BY MOUTH THREE TIMES A DAY Rx Instructions: TAKE 1 TABLET BY MOUTH THREE TIMES A DAY Primary Care Provider: Kenneth Villanueva Referrals: Kenneth Villanueva DO [Primary Care Provider] - 3-5 Days if not improving Activity Restrictions/Additional Instructions: Follow-up with your ASSEMBLER FITTER as scheduled tomorrow. You have been given your first dose of antibiotic for urinary tract infection today. Take the remainder of your medication/antibiotic for the next week. Return with sustained high fever, new or worsening symptoms. Print Language: Greek Disposition Disposition: Home, Self Care What to do if you have Problems For any increased pain, shortness of breath, bleeding, nausea or vomiting, chestpain, or any unexpected problems, contact your Primary Care Provider. Call [facility] ([phone]) or report to the closest Emergency Room. Call 911 if necessary. 03/26/252119 <Electronically signed by Miguel Angel Parikh MD> Cosigner Signature (if applicable): CC: Dr. Kenneth Villanueva DO ~ Signed [facility] Work Phone: 1(547) 134-752205-07-2025 Radiology Diagnostic study note [facility] Imaging Services [address] [place] [id number] Chest 1 View (Portable) MR#: [id number] Acct: [id number] Name: CLIFTON CAGE Rep #: [id number] : 1980 F 44 From: Mary Valenzuela MD PCP: Dr. Kenneth Villanueva DO Status: REG ER Study:Chest 1 View (Portable) Date of Exam: 02/07/25 Exam# [id number] Ordering Dr: Chely Bailey DO PROCEDURE: CHEST 1 VIEW (PORTABLE) 02/07/2025 REASON FOR EXAM: DYSPNEA TECHNIQUE: Frontal view of the chest. COMPARISON: 11/26/2019 FINDINGS: Hardware: None Heart: Stable cardiomediastinal silhouette. Lungs: Bibasilar atelectasis. No pneumothorax. No pleural effusion. No focal consolidation. Bones: The bones are unremarkable. Other: RAD/Chest 1 View (Portable) IMPRESSION: No Acute Findings. Reading Location: [facility] CC: Dr. Kenneth Villanueva, DO; Dr. Lisa Bailey, DO ~ Junior Net Developer: Signed [facility]03-12-2025 Evaluation note* Diagnosis Onset Date Resolution Status Admit Date Asthma chronic December 13 1:21pm CHF (congestive heart failure) [facility] December 13, 2024 1:21pm Chronic respiratory failure chronic December 13, 2024 1:21pm Mild intellectual disabilities [facility] December 13, 2024 1:21pm Obstructive sleep apnea chronic M 2024 1:21pm Restrictive lung disease chronic December 13, 2024 1:21pm HLD (hyperlipidemia) acute [facility] 2024 9:38am CHF (congestive heart failure) [facility] January 19, 2025 9:38am Essential hypertension chronic Ap ril 2024 9:38am Paroxysmal supraventricular tachycardia chronic January 19, 2025 9:38am [facility] Work Phone: 1([phone]) 179-461803-12-2025 Evaluation note* Diagnosis Onset Date Resolution Status Admit Date Asthma chronic December 13 1:21pm CHF (congestive heart failure) [facility] December 13, 2024 1:21pm Chronic respiratory failure chronic December 13, 2024 1:21pm Mild intellectual disabilities [facility] December 13, 2024 1:21pm Obstructive sleep apnea chronic [facility] 2024 1:21pm Restrictive lung disease chronic December 13, 2024 1:21pm HLD (hyperlipidemia) acute [facility] 2024 9:38am CHF (congestive heart failure) [facility] January 19, 2025 9:38am Essential hypertension chronic Ap ril 2024 9:38am Paroxysmal supraventricular tachycardia chronic January 19, 2025 9:38am Possible exposure to STD noneactive February 06, 2025 11:10am Encounter for routine gynecological examination noneactive February 11:10am [facility] Work Phone: 1(739) 296-227103-12-2025 Evaluation note* Diagnosis Onset Date Resolution Status Admit Date Asthma chronic December 13 1:21pm CHF (congestive heart failure) [facility] December 13, 2024 1:21pm Chronic respiratory failure chronic December 13, 2024 1:21pm Mild intellectual disabilities chron December 13, 2024 1:21pm Obstructive sleep apnea chronic M 2024 1:21pm Restrictive lung disease chronic December 13, 2024 1:21pm HLD (hyperlipidemia) acute [facility] 2024 9:38am CHF (congestive heart failure) chron January 19, 2025 9:38am Essential hypertension chronic Ap ril 2024 9:38am Paroxysmal supraventricular tachycardia chronic January 19, 2025 9:38am Possible exposure to STD noneactive February 06, 2025 11:10am Encounter for routine gynecological examination noneactive February 11:10am Asthma chronic March 08, 2025 2:17pm CHF (congestive heart failure) [facility] March 08, 2025 2:17pm Chronic respiratory failure chronic March 08, 2025 2:17pm Mild intellectual disabilities [facility] March 08, 2025 2:17pm Obstructive sleep apnea chronic J 2024 2:17pm Restrictive lung disease chronic March 08, 2025 2:17pm [facility] Work Phone: 1(271) 717-607709-17-2024 Instructions* Patient Instructions* Rajiv Baer - 06/20/2024 11:03 AM EDT Diabetes Foot Care Instructions When you have diabetes, proper foot care is very important. Poor foot care may lead to amputation of a foot or leg. As a person with diabetes, you are more vulnerable to foot problems, because diabetes can damage your nerves and reduce blood flow to your feet. Here are some diabetes foot care tips to follow: Wash and Dry Your Feet Daily Use mild soaps Use warm water Pat your skin dry; do not rub. Thoroughly dry your feet. After washing, use lotion on your feet to prevent cracking. Do not put lotion between your toes. Examine Your Feet Each Day Check the tops and bottoms of your feet. Have someone else look at your feet if you cannot see them. Check for dry, cracked skin. Look for blisters, cuts, scratches, or other sores. Check for redness, increased warmth, or tenderness when touching any area of your feet. Check for ingrown toenails, corns, and calluses. If you get a blister or sore from your shoes, do not pop it. Apply a bandage and wear a differentpair of shoes. Take Care of Your Toenails Cut toenails after bathing, when they are soft. Cut toenails straight across and smooth with a nail file. Avoid cutting into the corners of toes. Do not cut cuticles. If you have neuropathy (or decreased sensation in your feet) a manufacturing project manager should always cut your toenails. Be Careful When Exercising Walk and exercise in comfortable shoes. Do not exercise when you have open sores on your feet. Protect Your Feet With Shoes and Socks Never go barefoot. Always protect your feet by wearing shoes or hard-soled slippers or footwear. Avoid shoes with high heels and pointed toes. Avoid shoes that expose your toes or heels (such as open-toed shoes or sandals). These types of shoes increase your risk for injury and potential infections. Try on new footwear with the type of socks you usually wear. Do not wear new shoes for more than an hour at a time. Change your socks daily. Look and feel inside your shoes before putting them on to make sure there are no foreign objects orrough areas. Avoid tight socks. Wear natural-fiber socks (cotton, wool, or a cotton-wool blend). Wear special shoes if your health care provider recommends them. Wear shoes/boots that will protect your feet from various weather conditions (cold, moisture, etc.). Make sure your shoes fit properly. If you have neuropathy (nerve damage), you may not notice that your shoes are too tight. Perform the footwear test described below. Footwear Test Use this simple test to see if your shoes fit correctly: Stand on a piece of paper. (Make sure you are standing and not sitting, because your foot changes shape when you stand.) Trace the outline of your foot. Trace the outline of your shoe. Compare the tracings: Is the shoe too narrow? Is your foot crammed into the shoe? The shoe should be at least 1/2 inch longer than your longest toe and as wide as your foot. Proper Shoe Choices The following types of shoes are best for people with diabetes Closed toes and heels Leather uppers without a seam inside At least 1/2 inch extra space at the end of your longest toe Inside of shoe should be soft with no rough areas Outer sole should be made of stiff material Shoes should be at least as wide as your feet Tips for Foot Care in Diabetes Don't wait to treat a minor foot problem if you have diabetes. Follow your health care provider's guidelines and first aid guidelines. Report foot injuries and infections to your health care provider immediately. Check water temperature with your elbow, not your foot. Do not use a heating pad on your feet. Do not cross your legs. Do not self-treat your corns, calluses, or other foot problems. Go to your health care provider or manufacturing project manager to treat these conditions. [facility] NoteHNO ID: [id number] Author: RAJIV BAER, ? Service: ? Author Type: Physician Type: Progress Notes Filed: 06/20/2024 11:22 Note Text: Initial Office Visit Subjective: This 43 year old female presents to clinic for diabetic foot check. Patient has the following complaints: burning in right foot Patient complains of burning in the top of right foot. States that whenever she is on her foot for long duration, she will experience burning. Patient does take gabapentin and that helps but it does make her feel tired so she just takes the gabapentin at night Starting to getting bunion of right foot. Patient admits to being diabetic for 21 years now. Patient +B/T/N in feet at this time. Patient -pain in legs when walking. No other pedal complaints at this time. No change in medications or medical history since last visit. PAIN EVALUATION No data found in the last 1 encounters. Hemoglobin A1C (%) Date Value 03/15/2017 6.3 02/05/2017 6.6 11/23/2016 6.8 08/04/2016 6.7 02/13/2016 6.6 PCP: Kenneth Villanueva, PAST MEDICAL HISTORY Diagnosis Date Abdominal pain, [...] of both lower extremities with inflammation 08/18/2016 Current Outpatient Medications Medication Sig MOUNJARO 5 mg/0.5 mL pen injector Inject 5 mg subcutaneously one time a week. amitriptyline (ELAVIL) 10 mg tablet TWICE A DAY amLODIPine (NORVASC) 10 mg tablet DAILY atorvastatin (LIPITOR) 40 mg tablet AT BEDTIME FREESTYLE CHARLA 14 DAY SENSOR kit BREO ELLIPTA 200-25 mcg/dose inhaler glipiZIDE (GLUCOTROL) 5 mg tablet Take by mouth. hydrALAZINE (APRESOLINE) 50 mg tablet THREE TIMES A DAY irbesartan (AVAPRO) 150 mg tablet DAILY levothyroxine 150 mcg cap Take by mouth. pantoprazole DR (PROTONIX) 40 mg tablet TROKENDI XR 100 mg capsule 50mg in AM and 100mg at bedtime topiramate XR (TROKENDI XR) 50 mg capsule Take 1 capsule by mouth once daily. gabapentin (NEURONTIN) 100 mg capsule Take 1 capsule by mouth daily at bedtime. For RLS-PRN does not take nightly furosemide (LASIX) 20 mg tablet Take 1 [...] Take 0.5 tablets by mouth once daily. montelukast (SINGULAIR) 10 mg tablet Take 1 tablet by mouth daily at bedtime. omeprazole (PRILOSEC) 20 mg capsule Take 1 capsule by mouth once daily. potassium chloride (K-TAB) 10 mEq tablet Take 4 tablets by mouth once daily. Incontinence Pad, Liner, Disp (PREVAIL BLADDER CONTROL PAD) pads 1 Units as needed. albuterol (PROVENTIL) 2.5 mg /3 mL (0.083 [...] every 6 hours as needed for Nausea/Vomiting. multivitamin,zz-exus-zmvvnhpw (THERAGRAN M) tab Take 1 tablet by mouth once daily. oseltamivir (TAMIFLU) 75 mg capsule Take 1 capsule by mouth every 12 hours. (Patient not taking: Reported on 11/26/2023) predniSONE (DELTASONE) 20 mg tablet Take 1 tablet by mouth as directed. (Patient not taking: Reported on 06/20/2024) JARDIANCE 25 mg tablet (Patient not taking: Reported on 11/26/2023) megestrol (MEGACE) 40 mg tablet .COMPLEX (Patient not taking: Reported on 11/26/2023) sertraline (ZOLOFT) 100 mg tablet Take 1 tablet by mouth once daily. (Patient not taking: Reported on 06/20/2024) traZODone (DESYREL) 50 mg tablet (Patient not taking: Reported on (more content not included)...[facility]09-17-2024 History of Present illness Narrative* Rajiv Baer - 06/20/2024 10:52 AM EDT Initial Office Visit Subjective: This 43 year old female presents to clinic for diabetic foot check. Patient has the following complaints: burning in right foot Patient complains of burning in the top of right foot. States that whenever she is on her foot for long duration, she will experience burning. Patient does take gabapentin and that helps but it does make her feel tired so she just takes the gabapentin at night Starting to getting bunion of right foot. Patient admits to being diabetic for 21 years now. Patient +B/T/N in feet at this time. Patient -pain in legs when walking. No other pedal complaints at this time. No change in medications or medical history since last visit. PAIN EVALUATION No data found in the last 1 encounters. Hemoglobin A1C (%) Date Value 03/15/2017 6.3 02/05/2017 6.6 11/23/2016 6.8 08/04/2016 6.7 02/13/2016 6.6 PCP: Kenneth Villanueva DO PAST MEDICAL HISTORY Diagnosis Date Abdominal pain, [...] of both lower extremities with inflammation 08/18/2016 Current Outpatient Medications Medication Sig MOUNJARO 5 mg/0.5 mL pen injector Inject 5 mg subcutaneously one time a week. amitriptyline (ELAVIL) 10 mg tablet TWICE A DAY amLODIPine (NORVASC) 10 mg tablet DAILY atorvastatin (LIPITOR) 40 mg tablet AT BEDTIME FREESTYLE CHARLA 14 DAY SENSOR kit BREO ELLIPTA 200-25 mcg/dose inhaler glipiZIDE (GLUCOTROL) 5 mg tablet Take by mouth. hydrALAZINE (APRESOLINE) 50 mg tablet THREE TIMES A DAY irbesartan (AVAPRO) 150 mg tablet DAILY levothyroxine 150 mcg cap Take by mouth. pantoprazole DR (PROTONIX) 40 mg tablet TROKENDI XR 100 mg capsule 50mg in AM and 100mg at bedtime topiramate XR (TROKENDI XR) 50 mg capsule Take 1 capsule by mouth once daily. gabapentin (NEURONTIN) 100 mg capsule Take 1 capsule by mouth daily at bedtime. For RLS-PRN does not take nightly furosemide (LASIX) 20 mg tablet Take 1 [...] Take 0.5 tablets by mouth once daily. montelukast (SINGULAIR) 10 mg tablet Take 1 tablet by mouth daily at bedtime. omeprazole (PRILOSEC) 20 mg capsule Take 1 capsule by mouth once daily. potassium chloride (K-TAB) 10 mEq tablet Take 4 tablets by mouth once daily. Incontinence Pad, Liner, Disp (PREVAIL BLADDER CONTROL PAD) pads 1 Units as needed. albuterol (PROVENTIL) 2.5 mg /3 mL (0.083 [...] nebu Inhale 3 mL as instructed every 6hours as needed (shortnss of breath or hweezing). ondansetron orally disintegrating (ZOFRAN ODT) 4 mg disintegrating tablet Take 1 tablet by mouth every 6 hours as needed for Nausea/Vomiting. multivitamin,pq-tevp-dlqrywey (THERAGRAN M) tab Take 1 tablet by mouth once daily. oseltamivir (TAMIFLU) 75 mg capsule Take 1 capsule by mouth every 12 hours. (Patient not taking: Reported on 11/26/2023) predniSONE (DELTASONE) 20 mg tablet Take 1 tablet by mouth as directed. (Patient not taking: Reported on 06/20/2024) JARDIANCE 25 mg tablet (Patient not taking: Reported on 11/26/2023) megestrol (MEGACE) 40 mg tablet .COMPLEX (Patient not taking: Reported on 11/26/2023) sertraline (ZOLOFT) 100 mg tablet Take 1 tablet by mouth once daily. (Patient not taking: Reported on 06/20/2024) traZODone (DESYREL) 50 mg tablet (Patient not taking: Reported on 06/20/2024) dulaglutide (TRULICITY) 0.75 mg/0.5 mL pnij Inject 1 Dose subcutaneously once each week. Per endo (Patient not taking: Reported on 06/20/2024) metFORMIN ER (GLUCOPHAGE XR) 500 mg 24 [...] mouth twice daily with meals. (Patient not taking:Reported on 05/31/2023) metOLAzone (ZAROXOLYN) 5 mg tablet Take 1 tablet by mouth once each week. (Patient not taking: Reported on 05/31/2023) baclofen (LIORESAL) 20 mg tablet Take 1 tablet by mouth three times daily as needed (muscle spasms). (Patient not taking: Reported on 11/26/2023) fluticasone-salmeterol (ADVAIR DISKUS) 250-50 mcg/dose dsdv Inhale 1 Puff as instructed twice daily. RINSE MOUTH AFTER USE. (Patient not taking: Reported on 05/31/2023) Insulin [place], Disposable, (BD ULTRAFINE III MINI PEN) 31 gauge x /16 ndle USE WITH victoza pens daily (Patient not taking: Reported on 05/31/2023) Compression Knee Highs KNEE HIGH COMPRESSION STOCKINGS 20-30 MM Hg. DX: ICD9: 782.3, ICD10: R60.0; ICD9: 454.1, ICD10: I83.12, I83.11 Vicente Barney MD (Patient not taking: Reported on 05/31/2023) medroxyPROGESTERone (PROVERA, CYCRIN) 10 mg tablet Take 1 tablet daily for 10 days every 8 weeks (Patient not taking: Reported on 11/26/2023) SUMAtriptan (IMITREX) 100 mg tablet Take 1 tablet by mouth as needed for Migraine Headache (see administration instructions). (Patient not taking: Reported on 11/26/2023) blood sugar diagnostic (BLOOD GLUCOSE TEST) test strip Test blood sugar(s) four (4) times daily. daily. Dx: Type 2 diabetes, controlled without complication. E11.9. Insulin: No (Patient not taking: Reported on 05/31/2023) Lancets lancets Test blood sugar(s) four (4) times daily. daily. Dx: Type 2 diabetes, controlled without complication. E11.9. Insulin: No (Patient not taking: Reported on 05/31/2023) fluticasone (FLONASE) 50 mcg/actuation nasal spray Use 2 Sprays in each nostril once daily. Rinse mouth after use. (Patient not taking: Reported on 11/26/2023) No current facility-administered medications for this visit. ALLERGIES Allergen Reactions Nabumetone Swelling Throat swelling, shortness of breath. She can take ibuprofen. Penicillins Swelling, Shortness of Breath [place] [Hydrocodone-* Rash, Itching PAST SURGICAL HISTORY Procedure Laterality Date DELIVERY ONLY 08/2004 , low cervical COLONOSCOPY FLX DX W/COLLJ SPEC WHEN PFRMD 01/02/2015 Colonoscopy COLONOSCOPY FLX DX W/COLLJ SPEC WHEN PFRMD 02/05/16 Colonoscopy -[facility] CYSTOSCOPY 02/11/2016 EGD DILATION GASTRIC/DUODENAL STRICTURE 04/28/2016 EXC TUMOR SOFT TISSUE ABDL WALL SUBFASCIAL <5CM 01-25-07 x2 EXCISION ABD WALL TUMOR SUBFASCIAL endometrioma, Right lower quadrant IMBRICATION DIAPHRAGM EVENTRATION 1982 Congenital diaphragmatic hernia LIG/TRNSXJ FLP TUBE ABDL/VAG APPR UNI/BI 2004 Tubal ligation NEUROPLASTY &/TRANSPOS MEDIAN NRV CARPAL TUNNE OPTX BARREL LATHE OPERATOR INSIDE FEM EPIPHYSIS OSTEOT&INT FIXJ PAST SURGICAL HISTORY OF x 9 surgeries as a baby PAST SURGICAL HISTORY OF 02/2009 oral surgery right wisdom teeth extracted PAST SURGICAL HISTORY OF Bilateral Bilateral carpal tunnel syndrome RPR 1ST INGUN HRNA AGE 7 YRS/> REDUCIBLE Hernia repair, inguinal RPR UMBILICAL HERNIA < 5 YRS REDUCIBLE Hernia repair, umbilical <5yr STERNAL DEBRIDEMENT 02/02/1989 Sternal osteotomy, Pectus excavatum FAMILY HISTORY Problem Relation Age of Onset Stroke Mother Diabetes Mother COPD Mother Heart Mother mi Stroke Father Diabetes Father Coronary Artery Disease Father Heart Father mi Diabetes Sister other (G-tube) Son Social History Tobacco Use Smoking status: Never Smokeless tobacco: Never Vaping Use Vaping status: Never Used Substance Use Topics Alcohol use: No Drug use: No REVIEW OF SYSTEMS GENERAL: Negative for Malaise, significant weight loss, fever RESPIRATORY: Negative for cough, wheezing and shortness of breath CARDIOVASCULAR: Negative for chest pain, leg swelling and palpitations GI: Negative for abdominal discomfort, blood in stools or black stools and change in bowel habits : Negative for dysuria, frequency and incontinence MUSCULOSKELETAL: Negative for joint pain or swelling, back pain, and muscle pain. SKIN: Negative for lesions, rash, and itching. HEMATOLOGY/LYMPHOLOGY Negative for prolonged bleeding, bruising easily, and swollen nodes. ENDOCRINE: Negative for cold or heat intolerance, polyuria, polydipsia and goiter. NEURO: negative The remainder of the review of systems is noncontributory. Objective: [facility] Constitutional: Pt is a well developed 43 year old female who is alert, oriented, cooperative and in no apparent distress. Eyes: Following during examination. No redness or drainage. Respiratory: RR normal and nonlabored. Even breathing. No evidence of distress. Psychology: Patient is engaged during conversation. Normal affect and mood. Does not appear depressed or anxious. Vasc: DP and PT pulses are palpable bilateral. CFT is less than 5 seconds bilateral. Skin temperature is warm to warm proximal to distal bilateral. There is no edema or varicosities noted. Hair growth present. Neuro: Protective sensation is intact to the foot and toes when tested with the 5.07 SWM bilateral.Vibratory sensation is decreased at the hallux bilateral. No Significant neurological defecits. Derm: Inspection and palpation performed. Nails 1-5 b/l are normal color. B/l 5th toenail and righthallux are elongated. Skin is of normal turgor and texture. Hyperkeratosis noted to none. NO ulcerations, scars, verruca or other lesions noted. Ortho: Ankle joint DF is full with the knee extended and full with knee flexed. No pain or crepitusnoted. STJ, MTJ ROM are full and free of pain or crepitus. Muscle strength is 5/5 for dorsiflexors,plantarflexors, inverters, everters. Digital deformities include bunion deformity b/l. Mild spurring of b/l midfoot. Assessment: (E11.42) Diabetic polyneuropathy associated with type 2 diabetes mellitus (HCC) (primary encounter diagnosis) (M20.10) Acquired hallux valgus, unspecified laterality Plan: 1. Patient was seen and evaluated. 2. Patient was instructed on the continued importance of diabetic foot care along with proper diet and keeping their blood sugar under control to prevent complications. Stressed the importance of avoiding barefoot walking, wearing good shoes and daily foot inspection Instructions given both oral and written. 3. Patient has bunion and has component of neuropathy. Recommend diabetic shoes 4. If she wears shoes with laces, can alter the laces such that they place less pressure across midfoot. 5. F/uin 1 year for diabetic foot exam 6. Educated patient on nail care and who qualifies for nail care. She does not have any major risks/class findings requiring nail care. She was educated on how to cut the nails. B/l 5th toneail and right hallux were cut as courtesy. Rajiv Baer DPM * Nilda Elise RN - 06/20/2024 10:25 AM EDT Patient presents with: Left Foot - New, Diabetic Foot Check Right Foot - New, Diabetic Foot Check Patient present for diabetic foot check. States that she has slight neuropathy that has been getting worse. 2017 [facility] History of Present illness Narrative* Gualberto Gaytan RT([place]) - 06/20/2024 10:40 AM EDT Radiology Service Progress Note PATIENT NAME: Clifton Cage DATE OF SERVICE: June 20, 2024 TIME: 10:09 AM PATIENT IDENTITY VERIFICATION COMPLETED USING TWO (2) IDENTIFIERS: Name and Date of confirmedby patient verbally. FALL SCREENING: Has the patient had 2 falls in the last year or 1 fall with injury or currently using an Ambulatory Assistive Device (Walker, Cane, Wheelchair, Crutches, etc.)? No PATIENT GENDER DATA: Female. status: : No status: NO. PATIENT RELEVANT IMPLANT DATA REVIEWED: Not Applicable PATIENT PRESENTS WITH AN IMPLANTABLE OR ATTACHED SECURITY SERVICES SPECIALIST: No RADIOLOGY DEPARTMENT: General X-ray: Exam(s) Completed: Lower Extremity X- Ray(s): Foot, Bilateral and Wt. Bearing PERIPHERAL IV DATA: Not applicable SIGNED BY: RT Aung([place]) June 20, 2024 10:09 AM [facility] NoteHNO ID: [id number] Author: GUALBERTO GAYTAN RT(R) Service: Radiology Author Type: Technologist Type: Progress Notes Filed: 06/20/2024 10:20 Note Text: Radiology Service Progress Note PATIENT NAME: Clifton Cage DATE OF SERVICE: June 20, 2024 TIME: 10:09 AM PATIENT IDENTITY VERIFICATION COMPLETED USING TWO (2) IDENTIFIERS: Name and Date of confirmed by patient verbally. FALL SCREENING: Has the patient had 2 falls in the last year or 1 fall with injury or currently using an Ambulatory Assistive Device (Walker, Cane, Wheelchair, Crutches, etc.)? No PATIENT GENDER DATA: Female. status: : No status: NO. PATIENT RELEVANT IMPLANT DATA REVIEWED: Not Applicable PATIENT PRESENTS WITH AN IMPLANTABLE OR ATTACHED SECURITY SERVICES SPECIALIST: No RADIOLOGY DEPARTMENT: General X-ray: Exam(s) Completed: Lower Extremity X-Ray(s): Foot, Bilateral and Wt. Bearing PERIPHERAL IV DATA: Not applicable SIGNED BY: RT Aung(R) June 20, 2024 10:09 [facility]09-17-2024 NoteHNO ID: [id number] Author: NILDA ELISE RN Service: ? Author Type: Registered Nurse Type: Progress Notes Filed: 06/20/2024 11:22 Note Text: Patient presents with: Left Foot - New, Diabetic Foot Check Right Foot - New, Diabetic Foot Check Patient present for diabetic foot check. States that she has slight neuropathy that has been getting worse. [address]02-23-2024 History of Present illness Narrative* Nilda Cruz, [facility].HERBOLOGIST - 11/26/2023 3:56 PM EST SUBJECTIVE: Clifton Cage is a 43 year old female. Who presents today with a severe headache. She was dx with flu A in the hospital. She developed a severe heredia at 4 am this morning. This is the worst headache of her life. She feels as if her head is swelling and is being stabbed with needles. She is also having trouble breathing and only has one lung. She is on oxygen at home. She has an oxygen machine with her today. She is getting worse everyday since getting diagnosed in the hospital. She had a fever of 105.7. but that has gone away. She was not sure if she should have come to express care or the ER. Veda started here. I have instructed the patient that she will need to go to the emergency department for evaluation and treatment of her severe headache and worsening breathing. I have offered her anambulance and she has declined as her is waiting for her in the parking lot to drive her across the street to [facility] HPI PAST MEDICAL HISTORY Diagnosis Date Abdominal pain, [...] of both lower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 General Extremity: Negative for edema or pulses abnormal Neuro oriented x3, CN's II-XII intact bilaterally and no sensory deficits noted Sensorium / Orientation: awake and alert Motor Exam: strength 5/5 throughout Skin no rashes or lesions noted and no wounds MDM MDM MDM Narrative Medical decision making narrative: 2 view chest x-ray negative for pneumonia on my interpretation, radiology was inagreement. Her viral swab is positive for influenza A. After nebulizer treatment she is doing much better and breathing better. She was 93% on room air, she usually uses 2 L of oxygen at home. Given all of this I do not think we need to run blood work, and since her vital signs are improved and she is breathing better, I do not think there is need to admit her to the hospital right now. She is a diabetic, insulin-dependent type 2, I still think steroids are indicated here, so that she can breathe, however she agrees that she will likely have hyperglycemia as collateral damage. I am putting her on half dose prednisone to try to minimize that in addition to Tamiflu given her COPD and sheis comfortable with going home, family member here to discuss with them they arecomfortable with that as well. Radiography Diagnostic Testing: Clinical Impression(s) from Imaging Studies Chest X-Ray 11/17/23 06:27 IMPRESSION: No radiographic evidence of acute cardiopulmonary disease. Electronically Signed: Kenneth Arriaga MD at 7:23 EST , Rhythm Strip Rhythm Strip: Sinus Tach Rate: 120 Ectopy: None Discharge Plan Triage Chief Complaint: General Illness ED Provider: Steven Pollard Dx/Rx/DC Orders Clinical Impression: Influenza A, Acute exacerbation of chronic obstructive pulmonary disease (COPD) Instructions: ED COPD Flare, ED Influenza (Adult) Prescriptions: New prednisone 20 mg tablet 20 mg PO DAILY Qty: 5 0RF oseltamivir [oseltamivir] 75 mg capsule 75 mg PO BID Qty: 10 0RF No Action gabapentin 100 mg capsule 100 mg PO TID Trulicity 0.75 mg/0.5 mL pen injector 0.75 mg subcut QWEEK spironolactone 50 mg tablet 50 mg PO DAILY trazodone 100 mg tablet 100 mg PO QHS PRN (Reason: Anxiety) fluoxetine 40 mg capsule 40 mg PO DAILY Jardiance 25 mg tablet 25 mg PO DAILY levothyroxine 150 mcg capsule 150 mcg PO DAILY (DME) blood pressure monitor [Blood Pressure Kit] Kit See Rx Instructions .Route Qty: 1 0RF Rx Instructions: As directed topiramate 50 mg capsule,sprinkle,ER 24hr 50 mg PO DAILY (DME) PEP device See Rx Instructions .ROUTE .MEDSUPPLY Qty: 1 0RF Rx Instructions: with training ferrous sulfate 325 mg (65 mg iron) tablet 325 mg PO DAILY albuterol sulfate 90 mcg/actuation HFA aerosol inhaler 2 puff inhalation Q6H PRN (Reason: SOB) Qty: 8.5 11RF benzonatate 200 mg capsule 200 mg PO TID PRN (Reason: cough) Qty: 90 0RF Breo Ellipta 200-25 mcg/dose blister with device 1 inh inhalation DAILY Qty: 60 11RF ipratropium-albuterol 0.5 mg-3 mg(2.5 mg base)/3 mL solution for nebulization 3 ml inhalation .QID PRN (Reason: SOB) Qty: 180 6RF montelukast 10 mg tablet 10 mg PO QHS Qty: 90 3RF dicyclomine 10 mg capsule 10 mg PO TID pantoprazole 40 MG tablet 40 mg PO DAILY topiramate 100 mg capsule,extended release 24hr 100 mg PO QHS irbesartan 150 mg tablet 150 mg PO DAILY ondansetron 4 mg tablet,disintegrating 4 mg PO TID PRN (Reason: nausea and vomiting) Qty: 21 0RF atorvastatin 40 mg tablet 40 mg PO QHS Qty: 30 11RF furosemide 40 mg tablet 40 mg PO BID Qty: 180 3RF potassium chloride 20 mEq tablet,ER particles/crystals 20 meq PO BID Qty: 180 3RF amlodipine 10 mg tablet 10 mg PO DAILY Qty: 90 3RF metoprolol succinate 100 mg tablet extended release 24 hr 100 mg PO DAILY Qty: 90 3RF hydralazine 50 mg tablet See Rx Instructions .ROUTE .COMPLEX Qty: 90 3RF Dose Instruction: TAKE 1 TABLET BY MOUTH THREE TIMES A DAY Rx Instructions: TAKE 1 TABLET BY MOUTH THREE TIMES A DAY Primary Care Provider: Kenneth Villanueva Referrals: Kenneth Villanueva, DO [Primary Care Provider] - 1 Week if not improving Disposition Disposition: Home, Self Care What to do if you have Problems For any increased pain, shortness of breath, bleeding, nausea or vomiting, chestpain, or any unexpected problems, contact your Primary Care Provider. Call [facility] ([phone]) or report to the closest Emergency Room. Call 911 if necessary. 11/17/23 0745 <Electronically signed by Steven Pollard MD> Cosigner Signature (if applicable): CC: Dr. Kenneth Villanueva, DO ~ Signed [facility] Work Phone: Evaluation note* Diagnosis Onset Date Resolution Status Asthma chronic BMI 40.0-44.9, adult chronic CHF (congestive heart failure) chronic Chronic hypoxemic respiratory failure chronic Obstructive sleep apnea fluid dynamicist eulalia Restrictive lung disease chr onic Fatigue acute HLD (hyperlipidemia) acute CHF (congestive heart failure) chronic Essential hypertension chron ic Paroxysmal supraventricular tachycardia [facility] Work Phone: Evaluation note* Diagnosis Onset Date Resolution Status Fatigue acute HLD (hyperlipidemia) acute CHF (congestive heart failure) chronic Essential hypertension chron ic Paroxysmal supraventricular tachycardia chronic Fatigue acute HLD (hyperlipidemia) acute CHF (congestive heart failure) chronic Essential hypertension chron ic Paroxysmal supraventricular tachycardia chronic Asthma chronic BMI 40.0-44.9, adult chronic Chronic hypoxemic respiratory failure chronic Restrictive lung disease chr onic Fatigue acute HLD (hyperlipidemia) acute CHF (congestive heart failure) chronic Essential hypertension chron ic Paroxysmal supraventricular tachycardia [facility] Work Phone: Evaluation note* Diagnosis Onset Date Resolution Status Fatigue acute HLD (hyperlipidemia) acute CHF (congestive heart failure) chronic Essential hypertension chron ic Paroxysmal supraventricular tachycardia chronic Asthma chronic BMI 40.0-44.9, adult chronic Chronic hypoxemic respiratory failure chronic Restrictive lung disease chr onic Fatigue acute HLD (hyperlipidemia) acute CHF (congestive heart failure) chronic Essential hypertension chron ic Paroxysmal supraventricular tachycardia chronic Fatigue acute HLD (hyperlipidemia) acute CHF (congestive heart failure) chronic Essential hypertension chron ic Paroxysmal supraventricular tachycardia chronic Shortness of breath noneacti ve [facility] Work Phone: Evaluation note* Diagnosis Onset Date Resolution Status Fatigue acute HLD (hyperlipidemia) acute CHF (congestive heart failure) chronic Essential hypertension chron ic Paroxysmal supraventricular tachycardia chronic Asthma chronic BMI 40.0-44.9, adult chronic Chronic hypoxemic respiratory failure chronic Restrictive lung disease chr onic Fatigue acute HLD (hyperlipidemia) acute CHF (congestive heart failure) chronic Essential hypertension chron ic Paroxysmal supraventricular tachycardia chronic Fatigue acute HLD (hyperlipidemia) acute CHF (congestive heart failure) chronic Essential hypertension chron ic Paroxysmal supraventricular tachycardia chronic Shortness of breath noneacti ve HLD (hyperlipidemia) acute CHF (congestive heart failure) chronic Essential hypertension chron ic Paroxysmal supraventricular tachycardia chronic Possible exposure to STD non eactive Asthma chronic BMI 40.0-44.9, adult chronic CHF (congestive heart failure) chronic Chronic hypoxemic respiratory failure chronic Obstructive sleep apnea fluid dynamicist eulalia Restrictive lung disease chr onic [facility] Work Phone: Evaluation note* Diagnosis Onset Date Resolution Status Asthma chronic BMI 40.0-44.9, adult chronic Chronic hypoxemic respiratory failure chronic Restrictive lung disease chr onic Fatigue acute HLD (hyperlipidemia) acute CHF (congestive heart failure) chronic Essential hypertension chron ic Paroxysmal supraventricular tachycardia chronic Fatigue acute HLD (hyperlipidemia) acute CHF (congestive heart failure) chronic Essential hypertension chron ic Paroxysmal supraventricular tachycardia chronic Shortness of breath noneacti ve HLD (hyperlipidemia) acute CHF (congestive heart failure) chronic Essential hypertension chron ic Paroxysmal supraventricular tachycardia chronic Possible exposure to STD non eactive Asthma chronic BMI 40.0-44.9, adult chronic CHF (congestive heart failure) chronic Chronic hypoxemic respiratory failure chronic Obstructive sleep apnea fluid dynamicist eulalia Restrictive lung disease chr onic Menorrhagia with irregular cycle acute [facility] Work Phone: Evaluation note* Diagnosis Onset Date Resolution Status Fatigue acute HLD (hyperlipidemia) acute CHF (congestive heart failure) chronic Essential hypertension chron ic Paroxysmal supraventricular tachycardia chronic Fatigue acute HLD (hyperlipidemia) acute CHF (congestive heart failure) chronic Essential hypertension chron ic Paroxysmal supraventricular tachycardia chronic Shortness of breath noneacti ve HLD (hyperlipidemia) acute CHF (congestive heart failure) chronic Essential hypertension chron ic Paroxysmal supraventricular tachycardia chronic Possible exposure to STD non eactive Asthma chronic BMI 40.0-44.9, adult chronic CHF (congestive heart failure) chronic Chronic hypoxemic respiratory failure chronic Obstructive sleep apnea fluid dynamicist eulalia Restrictive lung disease chr onic Menorrhagia with irregular cycle acute [facility] Work Phone: Evaluation note* Diagnosis Onset Date Resolution Status Shortness of breath noneacti ve HLD (hyperlipidemia) acute CHF (congestive heart failure) chronic Essential hypertension chron ic Paroxysmal supraventricular tachycardia chronic Possible exposure to STD non eactive Asthma chronic BMI 40.0-44.9, adult chronic CHF (congestive heart failure) chronic Chronic hypoxemic respiratory failure chronic Obstructive sleep apnea fluid dynamicist eulalia Restrictive lung disease chr onic Menorrhagia with irregular cycle acute HLD (hyperlipidemia) acute CHF (congestive heart failure) chronic Essential hypertension chron ic Paroxysmal supraventricular tachycardia chronic BMI 40.0-44.9, adult chronic Chronic hypoxemic respiratory failure chronic COPD (chronic obstructive pulmonary disease) chronic Restrictive lung disease chr onic Menorrhagia with irregular cycle acute Menorrhagia with irregular cycle acute [facility] Work Phone: Evaluation note* Diagnosis Onset Date Resolution Status HLD (hyperlipidemia) acute CHF (congestive heart failure) chronic Essential hypertension chron ic Paroxysmal supraventricular tachycardia chronic BMI 40.0-44.9, adult chronic Chronic hypoxemic respiratory failure chronic COPD (chronic obstructive pulmonary disease) chronic Restrictive lung disease chr onic Menorrhagia with irregular cycle acute Menorrhagia with irregular cycle acute Postoperative examination no neactive Urinary frequency noneactive Finger fracture, right acute Finger fracture, right acute [facility] Work Phone: Evaluation note* Diagnosis Pain of finger of right hand- Primary [facility] Closed displaced fracture of middle phalanx of right little finger with routine healing, subsequent encounter- Primary Morbid obesity (HCC) Morbid [facility] Diagnosis Onset Date Resolution Status Finger fracture, right acute Finger fracture, right acute Asthma chronic BMI 40.0-44.9, adult chronic CHF (congestive heart failure) chronic Chronic hypoxemic respiratory failure chronic Obstructive sleep apnea fluid dynamicist eulalia Restrictive lung disease chr onic HLD (hyperlipidemia) acute CHF (congestive heart failure) chronic Essential hypertension chron ic Paroxysmal supraventricular tachycardia [facility] Work Phone: Evaluation note* Diagnosis Pain of finger of right hand Pain in limb [facility] Diagnosis Onset Date Resolution Status HLD (hyperlipidemia) acute CHF (congestive heart failure) chronic Essential hypertension chron ic Paroxysmal supraventricular tachycardia chronic Asthma chronic CHF (congestive heart failure) chronic Chronic respiratory failure chronic Mild intellectual disabilities chronic Restrictive lung disease [facility] Work Phone: Evaluation note* Diagnosis Onset Date Resolution Status Asthma chronic CHF (congestive heart failure) chronic Chronic respiratory failure chronic Mild intellectual disabilities chronic Restrictive lung disease chr onic [facility] Work Phone: Evaluation note* Diagnosis Headache, unspecified headache type- Primary SOB (shortness of breath) Shortness of [facility] Diabetic polyneuropathy associated with type 2 diabetes mellitus (HCC)- Primary Acquired hallux valgus, unspecified laterality [facility] Diagnosis Pain Generalized pain [facility] Diagnosis Onset Date Resolution Status Asthma chronic BMI 40.0-44.9, adult chronic CHF (congestive heart failure) chronic Chronic hypoxemic respiratory failure chronic Obstructive sleep apnea fluid dynamicist eulalia Restrictive lung disease chr onic HLD (hyperlipidemia) acute CHF (congestive heart failure) chronic Essential hypertension chron ic Paroxysmal supraventricular tachycardia chronic [facility] Work Phone: Hospital Discharge instructions Additional Instructions The packing will need to be removed in 3 days. If it comes out before that time that is okay.[facility] Work Phone: Hospital Discharge instructions Additional Instructions When you get home, take your irbesartan, and then your normal prescriptions starting with your afternoon dosing.[facility] Work Phone: Hospital Discharge instructions Additional Instructions Your symptoms are consistent with a viral stomach infection which can last anywhere from 1 day to 7 days with the average being 3 days. Use the Zofran to help control nausea continue with your home Bentyl as previously directed and keep yourself well-hydrated. [facility]: Hospital Discharge instructions Additional Instructions Your lab work and chest x-ray are normal. Rest until feeling better. Tylenol/ibuprofen for headache. Follow-up with Dr. Villanueva in 3 to 5 days if not improving. Return to ED with worsening symptoms. Monitor and log your blood pressures at home to take to your next appointment with Dr. Villanueva.[facility] Work Phone: Hospital Discharge instructions Additional Instructions Avoid metronidazole in the future as you had an allergic reaction to [facility] Work Phone: Hospital Discharge instructions Additional Instructions Follow-up with your ASSEMBLER FITTER as scheduled tomorrow. You have been given your first dose of antibiotic for urinary tract infection today. Take the remainder of your medication/antibiotic for the next week. Return with sustained high fever, new or worsening symptoms.[facility] Work Phone: Reason for referral (narrative)* Diagnostic Procedure Only (Routine) - Pending Review Specialty Diagnoses / Procedures Referred By Contac t Referred To Contact XR IMAGING Diagnoses Pain of finger of right hand Procedures XR DIGIT GENERAL 3V FRONTAL/LAT/OBL RIGHT RADEX FINGR MINIMUM 2 VIEWS Steven Cunningham MD [address] [place] [address] [place] [address] Referral ID Status Reason Start Date Expiration Date Visits Requested Visits Authorized [id number] Pending Review Auto-Generat ed Referral 05/26/2023 06/24/2024 1 1 [facility] for referral (narrative)* Diagnostic Procedure Only (Routine) - Closed Specialty Diagnoses / Procedures Referred By Contac t Referred To Contact XR IMAGING Diagnoses Pain of finger of right hand Procedures XR DIGIT GENERAL 3V FRONTAL/LAT/OBL RIGHT RADEX FINGR MINIMUM 2 VIEWS Steven Cunningham MD [address] [place] [address] [place] [address] Referral ID Status Reason Start Date Expiration Date V isits Requested Visits Authorized [id number] Closed Auto-Generate d Referral 05/26/2023 06/24/2024 1 1 [facility] for referral (narrative)No reason for referral information [facility] Work Phone: Reason for visit Narrative* Diagnostic Procedure Only (Routine) - Closed Specialty Diagnoses / Procedures Referred By Contac t Referred To Contact XR IMAGING Diagnoses Pain of finger of right hand Procedures XR DIGIT GENERAL 3V FRONTAL/LAT/OBL RIGHT RADEX FINGR MINIMUM 2 VIEWS Steven Cunningham MD [address] [place] [address] [place] [address] Referral ID Status Reason Start Date Expiration Date V isits Requested Visits Authorized [id number] Closed Auto-Generate d Referral 05/26/2023 06/24/2024 1 1 [facility] Diagnostic Procedure Only (Routine) - Closed Specialty Diagnoses / Procedures Referred By Contac t Referred To Contact XR IMAGING Diagnoses Pain Procedures XR FOOT GENERAL 3V AP/LAT/OBL BILATERAL RADEX FOOT COMPLETE MINIMUM 3 VIEWS Rajiv Baer [address] [place] [address] [place] [address] Referral ID Status Reason Start Date Expiration Date V isits Requested Visits Authorized [id number] Closed Auto-Generate d Referral 05/10/2024 06/09/2025 1 1 [facility] Summary Purpose Family History Relationship Condition Age at Onset Recorded Date/T bianac mother Diabetes mellitus Unknown Kidney disorder Unknown sister Diabetes mellitus Unknown Disorder of liver Unknown Kidney disorder 41 father Diabetes mellitus Unknown Hypertension Unknown Gangrene Unknown Advance Directives Advance Directive Response Recorded Date/ Time Advance Directives No January 12 2:24pm Living Will No August 14 10:07pm Power of Glue Spreader No August 14, 2021 10:07pm Advance Directive Response Recorded Date/ Time Advance Directives No January 12 1:24pm Living Will No August 14 9:07pm Power of Glue Spreader No August 14, 2021 9:07pm Advance Directive Response Recorded Date/ Time Advance Directives No January 12 1:24pm Living Will No September 11 8:15am Power of Glue Spreader No September 11, 2022 8:15am Advance Directive Response Recorded Date/ Time Advance Directives No January 12 1:24pm Living Will No October 20 8:16am Power of Glue Spreader No October 20, 2022 8:16am Advance Directive Response Recorded Date/ Time Advance Directives No January 12 1:24pm Living Will No November 27 10:14am Power of Glue Spreader No November 27, 2022 10:14am Advance Directive Response Recorded Date/ Time Advance Directives No January 12 2:24pm Living Will No January 29, 2023 11:52am Power of Glue Spreader No January 29 11:52am Advance Directive Response Recorded Date/ Time Advance Directives No April 29 11:03am Living Will No April 29, 2023 11:03am Power of Glue Spreader No April 29 11:03am Advance Directive Response Recorded Date/ Time Advance Directives No June 9:25am Living Will No June 22, 2023 9:25am Power of Glue Spreader No June 9:25am Advance Directive Response Recorded Date/ Time Advance Directives No June 8:25am Living Will No October 09 12:58am Power of Glue Spreader No October 09 12:58am Advance Directive Response Recorded Date/ Time Advance Directives No June 8:25am Living Will No November 17 6:08am Power of Glue Spreader No November 17, 2023 6:08am Advance Directive Response Recorded Date/ Time Advance Directives No June 8:25am Living Will No November 26 4:59pm Power of Glue Spreader No November 26, 2023 4:59pm Advance Directive Response Recorded Date/ Time Advance Directives No June 9:25am Living Will No November 26 5:59pm Power of Glue Spreader No November 26, 2023 5:59pm Advance Directive Response Recorded Date/ Time Advance Directives No June 8:25am Living Will No June 22, 2023 8:25am Power of Glue Spreader No June 8:25am Advance Directive Response Recorded Date/ Time Living Will No November 26 5:59pm Do you have a Healthcare Power of Glue Spreader? No November 26, 2023 5:59pm Advance Directives No April 21 1:40pm Advance Directive Response Recorded Date/ Time Living Will No November 26 5:59pm Do you have a Healthcare Power of Glue Spreader? No November 26, 2023 5:59pm Do you have a Healthcare Power of Glue Spreader? No February 07, 2025 5:00pm Advance Directives No April 21 1:40pm Advance Directive Response Recorded Date/ Time Living Will No November 26 5:59pm Do you have a Healthcare Power of Glue Spreader? No November 26, 2023 5:59pm Do you have a Healthcare Power of Glue Spreader? No February 07, 2025 5:00pm Do you have a Healthcare Power of Glue Spreader? No March 26, 2025 5:48pm Advance Directives No April 21 1:40pm Chief Complaint and Reason for Visit Chief Complaint 3 M FU overdue for OV Reason for Visit Asthma BMI 40.0-44.9, adult CHF (congestive heart failure) Chronic hypoxemic respiratory failure Obstructive sleep apnea Restrictive lung disease Fatigue HLD (hyperlipidemia) CHF (congestive heart failure) Essential hypertension Paroxysmal supraventricular tachycardia Chief Complaint 3 M FU overdue for OV LUNG DISORDER LUNG DISORDER HYPERTENSION HYPERTENSION Reason for Visit Asthma BMI 40.0-44.9, adult CHF (congestive heart failure) Chronic hypoxemic respiratory failure Obstructive sleep apnea Restrictive lung disease Fatigue HLD (hyperlipidemia) CHF (congestive heart failure) Essential hypertension Paroxysmal supraventricular tachycardia Chief Complaint overdue for OV LUNG DISORDER LUNG DISORDER HYPERTENSION HYPERTENSION 4 WK FU 4 M FU 1 M FU HYPERTENSION Reason for Visit Fatigue HLD (hyperlipidemia) CHF (congestive heart failure) Essential hypertension Paroxysmal supraventricular tachycardia Fatigue HLD (hyperlipidemia) CHF (congestive heart failure) Essential hypertension Paroxysmal supraventricular tachycardia Asthma BMI 40.0-44.9, adult Chronic hypoxemic respiratory failure Restrictive lung disease Fatigue HLD (hyperlipidemia) CHF (congestive heart failure) Essential hypertension Paroxysmal supraventricular tachycardia Chief Complaint overdue for OV LUNG DISORDER LUNG DISORDER HYPERTENSION HYPERTENSION 4 WK FU 4 M FU 1 M FU HYPERTENSION CYST ON BUTTOCK Reason for Visit Fatigue HLD (hyperlipidemia) CHF (congestive heart failure) Essential hypertension Paroxysmal supraventricular tachycardia Fatigue HLD (hyperlipidemia) CHF (congestive heart failure) Essential hypertension Paroxysmal supraventricular tachycardia Asthma BMI 40.0-44.9, adult Chronic hypoxemic respiratory failure Restrictive lung disease Fatigue HLD (hyperlipidemia) CHF (congestive heart failure) Essential hypertension Paroxysmal supraventricular tachycardia Chief Complaint LUNG DISORDER LUNG DISORDER HYPERTENSION HYPERTENSION 4 WK FU 4 M FU 1 M FU HYPERTENSION CYST ON BUTTOCK 1 M FU Shortness of breath INT LABS/INT RAD vaginal bleed Reason for Visit Fatigue HLD (hyperlipidemia) CHF (congestive heart failure) Essential hypertension Paroxysmal supraventricular tachycardia Asthma BMI 40.0-44.9, adult Chronic hypoxemic respiratory failure Restrictive lung disease Fatigue HLD (hyperlipidemia) CHF (congestive heart failure) Essential hypertension Paroxysmal supraventricular tachycardia Fatigue HLD (hyperlipidemia) CHF (congestive heart failure) Essential hypertension Paroxysmal supraventricular tachycardia Shortness of breath Chief Complaint HYPERTENSION 4 WK FU 4 M FU 1 M FU HYPERTENSION CYST ON BUTTOCK 1 M FU Shortness of breath INT LABS/INT RAD vaginal bleed Reason for Visit Fatigue HLD (hyperlipidemia) CHF (congestive heart failure) Essential hypertension Paroxysmal supraventricular tachycardia Asthma BMI 40.0-44.9, adult Chronic hypoxemic respiratory failure Restrictive lung disease Fatigue HLD (hyperlipidemia) CHF (congestive heart failure) Essential hypertension Paroxysmal supraventricular tachycardia Fatigue HLD (hyperlipidemia) CHF (congestive heart failure) Essential hypertension Paroxysmal supraventricular tachycardia Shortness of breath Chief Complaint 4 WK FU 4 M FU 1 M FU HYPERTENSION CYST ON BUTTOCK 1 M FU Shortness of breath INT LABS/INT RAD vaginal bleed 1 M FU ED AUB follow up 3 M FU Chronic respiratory failure with hypoxia Chronic respiratory failure with hypoxia Reason for Visit Fatigue HLD (hyperlipidemia) CHF (congestive heart failure) Essential hypertension Paroxysmal supraventricular tachycardia Asthma BMI 40.0-44.9, adult Chronic hypoxemic respiratory failure Restrictive lung disease Fatigue HLD (hyperlipidemia) CHF (congestive heart failure) Essential hypertension Paroxysmal supraventricular tachycardia Fatigue HLD (hyperlipidemia) CHF (congestive heart failure) Essential hypertension Paroxysmal supraventricular tachycardia Shortness of breath HLD (hyperlipidemia) CHF (congestive heart failure) Essential hypertension Paroxysmal supraventricular tachycardia Possible exposure to STD Asthma BMI 40.0-44.9, adult CHF (congestive heart failure) Chronic hypoxemic respiratory failure Obstructive sleep apnea Restrictive lung disease Chief Complaint 4 M FU 1 M FU HYPERTENSION CYST ON BUTTOCK 1 M FU Shortness of breath INT LABS/INT RAD vaginal bleed 1 M FU ED AUB follow up 3 M FU Chronic respiratory failure with hypoxia Chronic respiratory failure with hypoxia BLEEDING EMB AUB Reason for Visit Asthma BMI 40.0-44.9, adult Chronic hypoxemic respiratory failure Restrictive lung disease Fatigue HLD (hyperlipidemia) CHF (congestive heart failure) Essential hypertension Paroxysmal supraventricular tachycardia Fatigue HLD (hyperlipidemia) CHF (congestive heart failure) Essential hypertension Paroxysmal supraventricular tachycardia Shortness of breath HLD (hyperlipidemia) CHF (congestive heart failure) Essential hypertension Paroxysmal supraventricular tachycardia Possible exposure to STD Asthma BMI 40.0-44.9, adult CHF (congestive heart failure) Chronic hypoxemic respiratory failure Obstructive sleep apnea Restrictive lung disease Menorrhagia with irregular cycle Chief Complaint 1 M FU HYPERTENSION CYST ON BUTTOCK 1 M FU Shortness of breath INT LABS/INT RAD vaginal bleed 1 M FU ED AUB follow up 3 M FU Chronic respiratory failure with hypoxia Chronic respiratory failure with hypoxia BLEEDING EMB AUB Reason for Visit Fatigue HLD (hyperlipidemia) CHF (congestive heart failure) Essential hypertension Paroxysmal supraventricular tachycardia Fatigue HLD (hyperlipidemia) CHF (congestive heart failure) Essential hypertension Paroxysmal supraventricular tachycardia Shortness of breath HLD (hyperlipidemia) CHF (congestive heart failure) Essential hypertension Paroxysmal supraventricular tachycardia Possible exposure to STD Asthma BMI 40.0-44.9, adult CHF (congestive heart failure) Chronic hypoxemic respiratory failure Obstructive sleep apnea Restrictive lung disease Menorrhagia with irregular cycle Chief Complaint 1 M FU HYPERTENSION CYST ON BUTTOCK 1 M FU Shortness of breath INT LABS/INT RAD vaginal bleed 1 M FU ED AUB follow up 3 M FU Chronic respiratory failure with hypoxia Chronic respiratory failure with hypoxia BLEEDING EMB AUB VAG BLEEDING Reason for Visit Fatigue HLD (hyperlipidemia) CHF (congestive heart failure) Essential hypertension Paroxysmal supraventricular tachycardia Fatigue HLD (hyperlipidemia) CHF (congestive heart failure) Essential hypertension Paroxysmal supraventricular tachycardia Shortness of breath HLD (hyperlipidemia) CHF (congestive heart failure) Essential hypertension Paroxysmal supraventricular tachycardia Possible exposure to STD Asthma BMI 40.0-44.9, adult CHF (congestive heart failure) Chronic hypoxemic respiratory failure Obstructive sleep apnea Restrictive lung disease Menorrhagia with irregular cycle Chief Complaint Shortness of breath INT LABS/INT RAD vaginal bleed 1 M FU ED AUB follow up 3 M FU Chronic respiratory failure with hypoxia Chronic respiratory failure with hypoxia BLEEDING EMB AUB VAG BLEEDING 3 M FU 3 M FU D&C Reason for Visit Shortness of breath HLD (hyperlipidemia) CHF (congestive heart failure) Essential hypertension Paroxysmal supraventricular tachycardia Possible exposure to STD Asthma BMI 40.0-44.9, adult CHF (congestive heart failure) Chronic hypoxemic respiratory failure Obstructive sleep apnea Restrictive lung disease Menorrhagia with irregular cycle HLD (hyperlipidemia) CHF (congestive heart failure) Essential hypertension Paroxysmal supraventricular tachycardia BMI 40.0-44.9, adult Chronic hypoxemic respiratory failure COPD (chronic obstructive pulmonary disease) Restrictive lung disease Menorrhagia with irregular cycle Menorrhagia with irregular cycle Chief Complaint 3 M FU 3 M FU D&C PREOP 2 wk post op syncope right hand room 2 right hand Room 2 SCREENING; SYNCOPAL EVENT. HX OF SVT ABN MAMM Reason for Visit HLD (hyperlipidemia) CHF (congestive heart failure) Essential hypertension Paroxysmal supraventricular tachycardia BMI 40.0-44.9, adult Chronic hypoxemic respiratory failure COPD (chronic obstructive pulmonary disease) Restrictive lung disease Menorrhagia with irregular cycle Menorrhagia with irregular cycle Postoperative examination Urinary frequency Finger fracture, right Finger fracture, right Chief Complaint syncope right hand room 2 right hand Room 2 SCREENING; SYNCOPAL EVENT. HX OF SVT ABN MAMM 4 M FU 5 M FU FX OF LITTLE FINGER RX HERE WHEEZING, SOB Reason for Visit Finger fracture, rig ht Finger fracture, right Asthma BMI 40.0-44.9, adult CHF (congestive heart failure) Chronic hypoxemic respiratory failure Obstructive sleep apnea Restrictive lung disease HLD (hyperlipidemia) CHF (congestive heart failure) Essential hypertension Paroxysmal supraventricular tachycardia Chief Complaint 5 M FU FX OF LITTLE FINGER RX HERE WHEEZING, SOB 2 ordering doctors/paper and e orders Other disorders of lung Other disorders of lung 4 M FU N/V/D Reason for Visit HLD (hyperlipidemia) CHF (congestive heart failure) Essential hypertension Paroxysmal supraventricular tachycardia Asthma CHF (congestive heart failure) Chronic respiratory failure Mild intellectual disabilities Restrictive lung disease Chief Complaint WHEEZING, SOB 2 ordering doctors/paper and e orders Other disorders of lung Other disorders of lung 4 M FU N/V/D GENERAL ILLNESS Reason for Visit Asthma CHF (congestive heart failure) Chronic respiratory failure Mild intellectual disabilities Restrictive lung disease Chief Complaint 2 ordering doctors/p aper and e orders Other disorders of lung Other disorders of lung 4 M FU N/V/D GENERAL ILLNESS HEADACHE Reason for Visit Asthma CHF (congestive heart failure) Chronic respiratory failure Mild intellectual disabilities Restrictive lung disease Chief Complaint GENERAL ILLNESS HEADACHE 6 M FU 4 M FU INT LABSPEC Reason for Visit HLD (hyperlipidemia) CHF (congestive heart failure) Essential hypertension Paroxysmal supraventricular tachycardia Asthma CHF (congestive heart failure) Chronic respiratory failure Mild intellectual disabilities Restrictive lung disease Chief Complaint 4 M FU 5 M FU FX OF LITTLE FINGER RX HERE WHEEZING, SOB 2 ordering doctors/paper and e orders Other disorders of lung Other disorders of lung Reason for Visit Asthma BMI 40.0-44.9, adult CHF (congestive heart failure) Chronic hypoxemic respiratory failure Obstructive sleep apnea Restrictive lung disease HLD (hyperlipidemia) CHF (congestive heart failure) Essential hypertension Paroxysmal supraventricular tachycardia Chief Complaint Admit Date 6 M FU December 13, 2024 1:2 1pm J98.4 - Other disorders of lung January 172024 12:31pm 4 M FU January 19, 2025 9:3 8am J98.4 - Other disorders of lung January 192024 12:08pm Reason for Visit Admit Date Asthma December 13, 2024 1:2 1pm CHF (congestive heart failure) December 1:21pm Chronic respiratory failure December 13, 2024 1:21pm Mild intellectual disabilities December 1:21pm Obstructive sleep apnea December 13, 2024 1:21pm Restrictive lung disease December 13 1:21pm HLD (hyperlipidemia) January 19, 2025 9: 38am CHF (congestive heart failure) January 9:38am Essential hypertension January 19, 2025 9:38am Paroxysmal supraventricular tachycardia January 19, 2025 9:38am Chief Complaint Admit Date 6 M FU December 13, 2024 1:2 1pm J98.4 - Other disorders of lung January 172024 12:31pm 4 M FU January 19, 2025 9:3 8am J98.4 - Other disorders of lung January 192024 12:08pm J98.4 - Other disorders of lung January 262024 12:21pm Annual (SKIP MINER BLASTING) February 06, 2025 11:10a m ALLERGIC February 07, 2025 3:41pm Reason for Visit Admit Date Asthma December 13, 2024 1:2 1pm CHF (congestive heart failure) December 1:21pm Chronic respiratory failure December 13, 2024 1:21pm Mild intellectual disabilities December 1:21pm Obstructive sleep apnea December 13, 2024 1:21pm Restrictive lung disease December 13 1:21pm HLD (hyperlipidemia) January 19, 2025 9: 38am CHF (congestive heart failure) January 9:38am Essential hypertension January 19, 2025 9:38am Paroxysmal supraventricular tachycardia January 19, 2025 9:38am Possible exposure to STD February 06, 2025 1 1:10am Encounter for routine gynecological exam ination February 06, 2025 11:10am Chief Complaint Admit Date 6 M FU December 13, 2024 1:2 1pm J98.4 - Other disorders of lung January 172024 12:31pm 4 M FU January 19, 2025 9:3 8am J98.4 - Other disorders of lung January 192024 12:08pm J98.4 - Other disorders of lung January 262024 12:21pm Annual (SKIP MINER BLASTING) February 06, 2025 11:10a m ALLERGIC February 07, 2025 3:41pm 3 M FU March 08, 2025 2:17p m Chief Complaint Admit Date 6 M FU December 13, 2024 1:2 1pm J98.4 - Other disorders of lung January 172024 12:31pm 4 M FU January 19, 2025 9:3 8am J98.4 - Other disorders of lung January 192024 12:08pm J98.4 - Other disorders of lung January 262024 12:21pm Annual (SKIP MINER BLASTING) February 06, 2025 11:10a m ALLERGIC February 07, 2025 3:41pm 3 M FU March 08, 2025 2:17p m syncope March 26, 2025 5:46 pm Reason for Visit Admit Date Asthma December 13, 2024 1:2 1pm CHF (congestive heart failure) December 1:21pm Chronic respiratory failure December 13, 2024 1:21pm Mild intellectual disabilities December 1:21pm Obstructive sleep apnea December 13, 2024 1:21pm Restrictive lung disease December 13 1:21pm HLD (hyperlipidemia) January 19, 2025 9: 38am CHF (congestive heart failure) January 9:38am Essential hypertension January 19, 2025 9:38am Paroxysmal supraventricular tachycardia January 19, 2025 9:38am Possible exposure to STD February 06, 2025 1 1:10am Encounter for routine gynecological exam ination February 06, 2025 11:10am Asthma March 08, 2025 2:17p m CHF (congestive heart failure) March 08, 2025 2:17pm Chronic respiratory failure March 08 2:17pm Mild intellectual disabilities March 08, 2025 2:17pm Obstructive sleep apnea March 08, 2025 2 :17pm Restrictive lung disease March 08, 2025 2:17pm Chief Complaint Admit Date 6 M FU December 13, 2024 1:2 1pm J98.4 - Other disorders of lung January 172024 12:31pm 4 M FU January 19, 2025 9:3 8am J98.4 - Other disorders of lung January 192024 12:08pm J98.4 - Other disorders of lung January 262024 12:21pm Annual (SKIP MINER BLASTING) February 06, 2025 11:10a m ALLERGIC February 07, 2025 3:41pm 3 M FU March 08, 2025 2:17p m syncope March 26, 2025 5:46 pm BREEZY March 27, 2025 11:3 4am Reason for Referral Specialty Diagnoses / Procedures Referred By Boris olguin Referred To Contact [facility] Diagnoses Closed displaced fracture of middle phalanx of right little finger with routine healing, subsequent encounter Procedures 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 THERAPY EVAL HIGH COMPLEX 60 MINS Steven Cunningham MD [address] [place] [address] [facility] [address] [address] Referral ID Status Reason Start Date Expiration Date Visits Requested Visits Authorized [id number] Pending Review Auto-Generat ed Referral 05/31/2023 05/30/2024 1 1 Additional Source Comments INFORMATION SOURCE (unrecogn ized section and content) DATE CREATED AUTHOR 03/22/2018 [employer] DATE CREATED AUTHOR AUTHOR'S ORGANIZ ATION 03/28/2018 [facility] DATE CREATED AUTHOR AUTHOR'S ORGANIZ ATION 10/12/2018 [facility] DATE CREATED AUTHOR AUTHOR'S ORGANIZ ATION 11/04/2022 [facility] DATE CREATED AUTHOR AUTHOR'S ORGANIZ ATION 01/25/2025 [facility] DATE CREATED AUTHOR AUTHOR'S ORGANIZ ATION 03/09/2025 [facility] Goals (unrecognized section and content) Goals may be documented in a n alternate sectionGoals may be documented in an alternate sectionGoals may be documented in an alternate sectionGoals may be documented in an alternate sectionGoals may be documented in an alternate sectionGoals may be documented in an alternate sectionGoals may be documented in an alternate sectionGoals may be documented in an alternate sectionGoals may be documented in an alternate sectionGoals may be documented in an alternate sectionGoals may be documented in an alternate sectionGoals may be documented in an alternate sectionGoals may be documented in an alternate sectionGoals may be documented in an alternate sectionGoals may be documented in an alternate sectionGoals may be documented in an alternate sectionGoals may be documented in an alternate sectionGoals may be documented in an alternate sectionGoals may be documented in an alternate sectionGoals may be documented in an alternate sectionGoals may be documented in an alternate sectionGoals may be documented in an alternate sectionGoals may be documented in an alternate section Care Teams (unrecognized sec tion and content) Team Status: Active Member Role Status Dates Dr. Kenneth Villanueva DO Family Provider Active [facility] Primary Care Provider Active Team Status: Inactive Member Role Status Dates [facility] Primary Care Provider Active Flori Lee PRECISION GRINDER, PRECISION GRINDER-C Attending Provider, Referrin g Provider Active Team Status: Inactive Member Role Status Dates [facility] Primary Care Provider, Referring Provide r Active Norma Dunn PRECISION GRINDER, PRECISION GRINDER-C Attending Provider Active Team Status: Active Member Role Status Dates [facility] Primary Care Provider Active Dr. Lorenzo Brown MD Referring Provider, Other Provid er Active Dr. Dominick Mcclendon DO Attending Provider Active Team Status: Active Member Role Status Dates [facility] Primary Care Provider Active Dr. Edward Beasley MD Attending Provider Active Team Status: Active Member Role Status Dates [facility] Primary Care Provider Active Norma Dunn PRECISION GRINDER, PRECISION GRINDER-C Referring Provider, Other Provi jhonny Active Dr. Dominick Mcclendon DO Attending Provider Active Team Status: Active Member Role Status Dates [facility] Primary Care Provider Active Dr. Gennaro Morgan MD Attending Provider Active Norma Dunn PRECISION GRINDER, PRECISION GRINDER-C Referring Provider Active Team Status: Inactive Member Role Status Dates [facility] Primary Care Provider, Referring Provide r Active Flori Lee NP, PRECISION GRINDER-C Attending Provider Active Team Status: Inactive Member Role Status Dates [facility] Primary Care Provider Active Dr. Lorenzo Brown MD Attending Provider, Referring Pr ovider Active Team Status: Inactive Member Role Status Dates [facility] Primary Care Provider Active Norma uDnn PRECISION GRINDER, PRECISION GRINDER-C Attending Provider, Referring P rovider Active Team Status: Inactive Member Role Status Dates [facility] Primary Care Provider Active Dr. Tristen Ames DO Attending Provider, Emergency P rovider Active Team Status: Active Member Role Status Dates [facility] Primary Care Provider Active Flori Lee PRECISION GRINDER, PRECISION GRINDER-C Attending Provider, Referrin g Provider Active Team Status: Inactive Member Role Status Dates [facility] Primary Care Provider Active Dr. Gennaro Tejada DO Emergency Provider Active Team Status: Inactive Member Role Status Dates [facility] Primary Care Provider, Referring Provide r Active Dr. Lorenzo Brown MD Attending Provider Active Team Status: Inactive Member Role Status [facility] Primary Care Provider, Referring Provide r Active Felicia Gonzalez PRECISION GRINDER, PRECISION GRINDER-C Attending Provider Active Team Status: Active Member Role Status [facility] Primary Care Provider Active Dr. Lorenzo Brown MD Other Provider Active Dr. Dominick Mcclendon DO Attending Provider Active Team Status: Inactive Member Role Status [facility] Primary Care Provider Active Dr. Gennaro Tejada DO Attending Provider, Emergency P rovider Active Team Status: Inactive Member Role Status [facility] Primary Care Provider Active Felicia Gonzalez PRECISION GRINDER, PRECISION GRINDER-C Attending Provider, Referring Provider Active Team Status: Active Member Role Status Kenneth Sainiman Primary Care Provider Active Dr. Lorenzo Brown MD Attending Provider Active Team Status: Active Member Role Status Kenneth [facility] Primary Care Provider Active Felicia Gonzalez PRECISION GRINDER, PRECISION GRINDER-C Attending Provider, Referring Provider Active Team Status: Inactive Member Role Status Kenneth [facility] Primary Care Provider Active Dr. Lorenzo Brown MD Attending Provider Active Team Status: Inactive Member Role Status Kenneth Lalit Primary Care Provider Active Dr. Steven Pollard MD Emergency Provider Active Team Status: Active Member Role Status Dates Dr. Kenneth Villanueva DO Family Provider Active Dr. Kenneth Villanueva DO Primary Care Provider Active Team Status: Inactive Member Role Status Dates Kenneth LondonLalit [facility] Primary Care Provider, Referring Pro vider Active Norma Dunn PRECISION GRINDER, PRECISION GRINDER-C Attending Provider Active Team Status: Inactive Member Role Status [facility] Kenneth Sainiman [facility] Primary Care Provider Active Flori Lee PRECISION GRINDER, PRECISION GRINDER-C Attending Provider, Referrin g Provider Active Team Status: Inactive Member Role Status Dates Kenneth LondonLalit [facility] Primary Care Provider, Referring Pro vider Active Dr. Lorenzo Brown MD Attending Provider Active Team Status: Inactive Member Role Status Dates Kenneth STEIN Primary Care Provider, Referring Pro vider Active Felicia Gonzalez PRECISION GRINDER, PRECISION GRINDER-C Attending Provider Active Team Status: Inactive Member Role Status Dates Kenneth STEIN Primary Care Provider, Referring Pro vider Active Flori Lee PRECISION GRINDER, PRECISION GRINDER-C Attending Provider Active Team Status: Active Member Role Status Dates Kenneth STEIN Primary Care Provider Active Dr. Lorenzo Brown MD Referring Provider, Other Provid er Active Dr. Dominick Mcclendon DO Attending Provider Active Team Status: Inactive Member Role Status Dates Kenneth STEIN Primary Care Provider, Referring Pro vider Active Dr. Macy Arevalo MD Attending Provider Active Team Status: Active Member Role Status Dates Dr. Kenneth Villanueva DO Primary Care Provider Active Dr. Macy Arevalo MD Attending Pr ovider, Referring Provider, Other Provider Active Team Status: Inactive Member Role Status Kenneth STEIN Primary Care Provider Active Dr. Gennaro Tejada DO Attending Provider, Emergency P rovider Active Team Status: Inactive Member Role Status Kenneth STEIN Primary Care Provider Active Felicia Gonzalez PRECISION GRINDER, PRECISION GRINDER-C Attending Provider, Referring Provider Active Team Status: Inactive Member Role Status Dates Kenneth Villanueva [facility] Primary Care Provider Active Dr. Lorenzo Brown MD Attending Provider Active Team Status: Inactive Member Role Status Kenneth Villanueva [facility] Primary Care Provider Active Dr. Steven Pollard MD Attending Provider, Emergency Provider Active Team Status: Active Member Role Status Dates Dr. Kenneth Villanueva DO Primary Care Provider Active Dr. Macy Arevalo MD Attending Provider, Referr ing Provider Active Team Status: Inactive Member Role Status Dates Dr. Kenneth Villanueva DO Primary Care Provider Active Dr. Macy Arevalo MD Attending Provider, Referr ing Provider Active Team Status: Inactive Member Role Status Dates Kenneth STEIN Referring Provider Active Dr. Macy Arevalo MD Attending Provider Active Dr. Kenneth Villanueva DO Primary Care Provider Active Team Status: Active Member Role Status Dates Dr. Kenneth Villanueva DO Primary Care Provider Active Dr. Belle Kimble MD Attending Provider Active Dr. Macy Arevalo MD Referring Provider Active Team Status: Inactive Member Role Status Dates Dr. Kenneth Villanueva DO Primary Care Provider, Referrin g Provider Active Dr. Armando Borruso , DO Attending Provider Active Team Status: Inactive Member Role Status Dates Dr. Kenneth Villanueva , DO Primary Care Provider Active Dr. Ketan Nayak MD Attending Provider Active Team Status: Inactive Member Role Status Dates Dr. Kenneth Villanueva , DO Primary Care Provider Active Dr. Steven Pollard MD Attending Provider, Emergency Provider Active Team Status: Inactive Member Role Status Dates Dr. Kenneth Villanueva , DO Primary Care Prov ider, Attending Provider, Referring Provider Active Advertising Rep Relationship Specialty Start Date End Date Kenneth Villanueva DO [address] [address] PCP - General Family Medicine 08/03/17 Casimiro Cardoza MD [address] [place], [place] [address] Specialty Accident Examiner Pulmonary and Critical Care Medicine 05/09/16 [place] [address] [place] [address] Specialty Accident Examiner Endocrinology 12/17/16 Vijaya /harvest manager [employer] Registered Nurse 12/17/15 Darby Olson [employer] Code Enforcement Officer Other 05/01/16 [facility] Registered Nurse 12/17/16 [employer] Transportation Provider 12/17/16 Advertising Rep Relationship Specialty Start Date End Date Kenneth Villanueva DO [address] [place] [address] PCP - General Family Medicine 08/03/17 Casimiro Cardoza MD [address] [place], [place] [id number] Specialty Accident Examiner Pulmonary and Critical Care Medicine 05/09/16 [place] [address] [place] [address] Specialty Accident Examiner Endocrinology 12/17/16 Vijaya /harvest manager [employer] Registered Nurse 12/17/15 Darby Olson [employer] Animal Park Code Enforcement Officer Other 05/01/16 [facility] Registered Nurse 12/17/16 [employer] Transportation Provider 12/17/16 Team Status: Inactive Member Role Status Dates Kenneth STEIN Referring Provider Active Norma Dunn NP, PRECISION GRINDER-C Attending Provider Active Dr. Kenneth Villanueva DO Primary Care Provider Active Team Status: Inactive Member Role Status Dates Kenneth STEIN Referring Provider Active Dr. Lorenzo Brown MD Attending Provider Active Dr. Kenneth Villanueva DO Primary Care Provider Active Team Status: Inactive Member Role Status Dates Dr. Kenneth Villanueva DO Primary Care Provider Active Mari Garcia NP-C Attending Provider, Referring Prov ider Active Team Status: Inactive Member Role Status Dates Dr. Kenneth Villanueva DO Primary Care Provider Active Dr. Steven Cunningham MD Attending Provider, Referring Provider Active Advertising Rep Relationship Specialty Start Date End Date Kenneth Villanueva DO [address] [place] [address] PCP - General Family Medicine 08/03/17 Casimiro Cardoza MD [address] [place], [place] [address] Specialty Accident Examiner Pulmonary and Critical Care Medicine 05/09/16 [place] [address] [place] [address] Specialty Accident Examiner Endocrinology 12/17/16 Vijaya /harvest manager [employer] Registered Nurse 12/17/15 Darby Olson [employer] Animal Park Code Enforcement Officer Other 05/01/16 [facility] Registered Nurse 12/17/16 [employer] Transportation Provider 12/17/16 Team Status: Inactive Member Role Status Dates Dr. Kenneth Lalit , DO Primary Care Provider, Referrin g Provider Active Flori Lee PRECISION GRINDER, PRECISION GRINDER-C Attending Provider Active Team Status: Active Member Role Status Dates Dr. Kenneth Villanueva , DO Primary Care Provider Active Dr. Lorenzo Brown MD Referring Provider, Other Provid er Active Dr. Dominick Mcclendon , DO Attending Provider Active Team Status: Inactive Member Role Status Dates Dr. Kenneth Villanueva DO Primary Care Provider Active Dr. Evon Ryan MD Attending Provider, Referri ng Provider Active Norma Dunn PRECISION GRINDER, PRECISION GRINDER-C Other Provider Active Team Status: Inactive Member Role Status Dates Dr. Kenneth Villanueva DO Primary Care Provider Active Dr. Ifeanyi Hernandez , DO Emergency Provider Active Team Status: Inactive Member Role Status Dates Dr. Kenneth Villanueva DO Primary Care Provider Active Dr. Lorenzo Brown MD Attending Provider, Referring Pr ovider Active Team Status: Inactive Member Role Status Dates Dr. Kenneth Villanueva DO Primary Care Provider Active Dr. Ifeanyi Hernandez , DO Attending Provider, Emergency Pr ovider Active Team Status: Inactive Member Role Status Dates Dr. Kenneth Villanueva DO Primary Care Provider Active Dr. Steven Pollard MD Emergency Provider Active Team Status: Inactive Member Role Status Dates Dr. Kenneth Villanueva DO Primary Care Provider Active Dr. Maria A Hurtado MD Emergency Provider Active Advertising Rep Relationship Specialty Start Date End Date Kenneth Villanueva DO [address] [place] [address] PCP - General Family Medicine 08/03/17 Casimiro Cardoza MD [address] [place] [address] Specialty Accident Examiner Pulmonary and Critical Care Medicine 05/09/16 [place] [address] [place] [address] Specialty Accident Examiner Endocrinology 12/17/16 Vijaya /harvest manager [employer] Registered Nurse 12/17/15 Darby Olson [employer] Animal Park Code Enforcement Officer Other 05/01/16 [facility] Registered Nurse 12/17/16 [employer] Transportation Provider 12/17/16 Team Status: Inactive Member Role Status Dates Dr. Kenneth Villanueva , DO Primary Care Provider, Referrin g Provider Active Norma Dunn PRECISION GRINDER, PRECISION GRINDER-C Attending Provider Active Team Status: Inactive Member Role Status Dates Dr. Kenneth Villanueva , DO Primary Care Provider Active Dr. Maria A Hurtado MD Attending Provider, Emergency Provider Active Team Status: Inactive Member Role Status Dates Dr. Kenneth Villanueva , DO Primary Care Provider Active Flori Lee PRECISION GRINDER, PRECISION GRINDER-C Attending Provider, Referrin g Provider Active Advertising Rep Relationship Specialty Start Date End Date Kenneth Villanueva DO [address] [place] [address] PCP - General Family Medicine 08/03/17 Casimiro Cardoza MD [address] [place], [place] [id number] Specialty Accident Examiner Pulmonary and Critical Care Medicine 05/09/16 [place] [address] [place] [address] Specialty Accident Examiner Endocrinology 12/17/16 Vijaya /harvest manager [facility] Registered Nurse 12/17/15 Darby Olson PASSPORT Animal Park Code Enforcement Officer Other 05/01/16 [facility] Registered Nurse 12/17/16 [facility] Transportation Provider 12/17/16 Advertising Rep Relationship Specialty Start Date End Date Kenneth Villanueva DO [address] [place], [place] [id number] PCP - General Family Medicine 08/03/17 Casimiro Cardoza MD [address] [place], [place] [id number] Specialty Accident Examiner Pulmonary and Critical Care Medicine 05/09/16 [place] [address] [place] [address] Specialty Accident Examiner Endocrinology 12/17/16 Vijaya /harvest manager [facility] Registered Nurse 12/17/15 Darby [place] [employer] Animal Park Code Enforcement Officer Other 05/01/16 [facility] Registered Nurse 12/17/16 [facility] Transportation Transportation Provider 12/17/16 Team Status: Active Member Role Status Dates Dr. Kenneth Villanueva DO Primary Care Provider Active Team Status: Inactive Member Role Status Dates Dr. Kenneth Villanueva DO Primary Care Provider Active Start: October 11, 2024 End: October 11, 2024 Dr. Evon Ryan MD Attending Provider Active Start: October 11, 2024 End: October 11, 2024 Dr. Evon Ryan MD Referring Provider Active Start: October 11, 2024 End: October 11, 2024 Team Status: Inactive Member Role Status Dates Dr. Kenneth Villanueva DO Primary Care Provider Active Start: December 13, 2024 End: December 13, 2024 Dr. Kenneth Villanueva DO Referring Provider Active Start: December 13, 2024 End: December 13, 2024 Flori Lee PRECISION GRINDER, PRECISION GRINDER-C Attending Provider Active Start: December 13, 2024 End: December 13, 2024 Team Status: Inactive Member Role Status Dates Dr. Kenneth Villanueva DO Primary Care Provider Active Start: January 02, 2025 End: January 02, 2025 Dr. Kenneth Villanueva DO Attending Provider Active Start: January 02, 2025 End: January 02, 2025 Dr. Kenneth Villanueva DO Referring Provider Active Start: January 02, 2025 End: January 02, 2025 Team Status: Inactive Member Role Status Dates Dr. Kenneth Villanueva DO Primary Care Provider Active Start: January 17, 2025 End: January 17, 2025 Flori Lee PRECISION GRINDER, PRECISION GRINDER-C Attending Provider Active Start: January 17, 2025 End: January 17, 2025 Flori Lee PRECISION GRINDER, PRECISION GRINDER-C Referring Provider Active Start: January 17, 2025 End: January 17, 2025 Team Status: Inactive Member Role Status Dates Dr. Kenneth Villanueva DO Primary Care Provider Active Start: January 19, 2025 End: January 19, 2025 Dr. Kenneth Villanueva DO Referring Provider Active Start: January 19, 2025 End: January 19, 2025 Kianna Desir PA, PA Attending Provider Active Start: January 19, 2025 End: January 19, 2025 Team Status: Inactive Member Role Status Dates Dr. Kenneth Villanueva DO Primary Care Provider Active Start: January 19, 2025 End: January 19, 2025 Flori Lee PRECISION GRINDER, PRECISION GRINDER-C Attending Provider Active Start: January 19, 2025 End: January 19, 2025 Flori Lee PRECISION GRINDER, PRECISION GRINDER-C Referring Provider Active Start: January 19, 2025 End: January 19, 2025 Team Status: Active Member Role Status Dates Dr. Kenneth Villanueva DO Primary Care Provider Active Start: January 26, 2025 Flori Lee PRECISION GRINDER, PRECISION GRINDER-C Referring Provider Active Start: January 26, 2025 Flori Lee PRECISION GRINDER, PRECISION GRINDER-C Other Provider Active Start: January 26, 2025 Dr. Dominick Mcclendon DO Attending Provider Active S tart: January 26, 2025 Team Status: Inactive Member Role Status Dates Dr. Kenneth Villanueva DO Primary Care Provider Active Start: February 06, 2025 End: February 06, 2025 Dr. Kenneth Villanueva DO Referring Provider Active Start: February 06, 2025 End: February 06, 2025 Felicia Gonzalez PRECISION GRINDER, PRECISION GRINDER-C Attending Provider Active Start: February 06, 2025 End: February 06, 2025 Team Status: Active Member Role Status Dates Dr. Kenneth Villanueva DO Primary Care Provider Active Start: February 06, 2025 Felicia Gonzalez PRECISION GRINDER, PRECISION GRINDER-C Attending Provider Active Start: February 06, 2025 Felicia Gonzalez PRECISION GRINDER, PRECISION GRINDER-C Referring Provider Active Start: February 06, 2025 Team Status: Inactive Member Role Status Dates Dr. Kenneth Villanueva DO Primary Care Provider Active Start: February 07, 2025 End: February 07, 2025 Dr. Lisa Bailey DO Referring Provider Active S tart: February 07, 2025 End: February 07, 2025 Dr. Lisa Bailey , DO Emergency Provider Active S tart: February 07, 2025 End: February 07, 2025 Team Status: Inactive Member Role Status Dates Dr. Kenneth Villanueva DO Primary Care Provider Active Start: February 06, 2025 End: February 06, 2025 Felicia Gonzalez PRECISION GRINDER, PRECISION GRINDER-C Attending Provider Active Start: February 06, 2025 End: February 06, 2025 Felicia Gonzalez PRECISION GRINDER, PRECISION GRINDER-C Referring Provider Active Start: February 06, 2025 End: February 06, 2025 Team Status: Inactive Member Role Status Dates Dr. Kenneth Villanueva DO Primary Care Provider Active Start: February 07, 2025 End: February 07, 2025 Dr. Lisa Bailey DO Attending Provider Active S tart: February 07, 2025 End: February 07, 2025 Dr. Lisa Bailey DO Referring Provider Active S tart: February 07, 2025 End: February 07, 2025 Dr. Lisa Bailey DO Emergency Provider Active S tart: February 07, 2025 End: February 07, 2025 Team Status: Inactive Member Role Status Dates Dr. Kenneth Villanueva DO Primary Care Provider Active Start: March 08, 2025 End: March 08, 2025 Dr. Kenneth Villanueva DO Referring Provider Active Start: March 08, 2025 End: March 08, 2025 Flori Lee NP, PRECISION GRINDER-C Attending Provider Active Start: March 08, 2025 End: March 08, 2025 Team Status: Inactive Member Role Status Dates Dr. Kenneth Villanueva DO Primary Care Provider Active Start: March 26, 2025 End: March 26, 2025 Miguel Angel Parikh MD Emergency Provider Active Star t: March 26, 2025 End: March 26, 2025 Team Status: Inactive Member Role Status Dates Dr. Kenneth Villanueva DO Primary Care Provider Active Start: March 27, 2025 End: March 27, 2025 Dr. Kenneth Villanueva DO Referring Provider Active Start: March 27, 2025 End: March 27, 2025 Felicia Gonzalez PRECISION GRINDER, PRECISION GRINDER-C Attending Provider Active Start: March 27, 2025 End: March 27, 2025 Source Comments (unrecognize d section and content) In the event this informatio n is protected by the Federal Confidentiality of Alcohol and Drug Abuse Patient Records regulations: The Federal rules restrict any use of the information to criminally investigate or prosecute any alcohol or drug abuse patient.[facility] the event this information is protected by the Federal Confidentiality of Alcohol and Drug Abuse Patient Records regulations: The Federal rules restrict any use of the information to criminally investigate or prosecute any alcohol or drug abuse patient.[facility] the event this information is protected by the Federal Confidentiality of Alcohol and Drug Abuse Patient Records regulations: The Federal rules restrict any use of the information to criminally investigate or prosecute any alcohol or drug abuse patient.[facility] the event this information is protected by the Federal Confidentiality of Alcohol and Drug Abuse Patient Records regulations: The Federal rules restrict any use of the information to criminally investigate or prosecute any alcohol or drug abuse patient.[facility] the event this information is protected by the Federal Confidentiality of Alcohol and Drug Abuse Patient Records regulations: The Federal rules restrict any use of the information to criminally investigate or prosecute any alcohol or drug abuse patient.[facility] the event this information is protected by the Federal Confidentiality of Alcohol and Drug Abuse Patient Records regulations: The Federal rules restrict any use of the information to criminally investigate or prosecute any alcohol or drug abuse patient.[facility] Reason for Visit (unrecogniz ed section and content) Reason Comments New Referred by Dr Christiano gorman. Xrays taken 05/07/2023 and 04/30/23 at [facility] Fracture Referred by Dr Christiano gorman. Xrays taken 05/07/2023 and 04/30/23 at [facility] Reason Comments New Diabetic Foot Check FOR RECORDS PERTAINING TO PATIENTS WHO ARE [...] BE BASED ON THE PRIMARY CLINICAL RECORDS. [employer] provides no warranty or guarantee of the accuracy or completeness of information in this document.
[2025-03-29 21:07] LABS: Chlamydia By Nucleic Acid AMP Negative (Negative); Gonococcus By Nucleic Acid AMP Negative (Negative)
[2025-03-29 22:07] LABS: HCV Quant. RNA PCR HCV Not Detected IU/mL (.); HSV 1 IgG Reactive (Non Reactive); HSV 2 IgG Non Reactive (Non Reactive)
== END | disposition home or self-care (01) ==
PROVIDERS: PCP Family Medicine; Referring Provider Nurse Practitioner Women's Health; Visit Provider Nurse Practitioner Women's Health
DX: Z11.3 Encounter for screening for infections with a predominantly sexual mode of transmission (principal); Z20.2 Contact with and (suspected) exposure to infections with a predominantly sexual mode of transmission
CPT/HCPCS: 36415; 86695; 86696; 86703; 86780; 87491; 87522; 87591

== ENCOUNTER → 2025-03-28 | Outpatient (CLI) | payer MEDICARE, MEDICAID, SELFPAY ==
--- OUTSIDE RECORDS SUMMARY | 2025-03-28 21:54 | XMS RPT_ITS | CCD ---
Author Organization [facility]iniSy[facility] Care Team Providers Care Bass Viol Repairer Name Role Phone Roof Franklyn ARNOLD Unavailable Kathryn Ravi Unavailable Unavailable CHRIS BURNETTE () Unavailable Unavailable CHRIS BURNETTE () Unavailable Unavailable TERI TY Unavailable Unavailable RAGHUNATHAN, STEPHEN Unavailable Unavailable BARNEY, VICENTE Unavailable Unavailable RAGHUNATHAN, STEPHEN Unavailable Unavailable BARNEY, VICENTE Unavailable Unavailable Megan Raviica L Unavailable Unavailable Kenneth Villanueva Primary Care Provider UnavailKenneth Dumont Referring Provider Unavailable Dr. Lorenzo Brown Attending Provider [phone] Shaun ARNOLD, AB INITIO ETL DEVELOPER-C oNrma Attending Provider Dr. Lorenzo Brown Referring Provider [phone] Dr. Lorenzo Brown Other Provider Dr. Dominick Mcclendon Attending Provider [phone] Dr. Edward Beaslye Attending Provider [phone] Shaun ARNOLD, AB INITIO ETL DEVELOPER-C Norma Referring Provider Shaun ARNOLD, AB INITIO ETL DEVELOPER-C Norma Other Provider [phone] Kenneth Villanueva Primary Care Provider UnavailKneneth Dumont Referring Provider Unavailable Shaun ARNOLD, AB INITIO ETL DEVELOPER-C Norma Attending Provider Dr. Lorenzo Brown Referring Provider [phone] Dr. Lorenzo Brown Other Provider Dr. Dominick Mcclendon Attending Provider [phone] Dr. Edward Beasley Attending Provider [phone] Shaun AB INITIO ETL DEVELOPER, AB INITIO ETL DEVELOPER-C Norma Referring Provider Shaun AB INITIO ETL DEVELOPER, AB INITIO ETL DEVELOPER-C Norma Other Provider [phone] Lee AB INITIO ETL DEVELOPER, AB INITIO ETL DEVELOPER-C Flori Attending Provider [phone] Jesus AB INITIO ETL DEVELOPER, AB INITIO ETL DEVELOPER-C Flori Referring Provider [phone] Dr. Gennaro Morgan Attending Provider Kenneth Villanueva Primary Care Provider Unavailabl e Kenneth Villanueva Referring Provider Unavailable Shaun AB INITIO ETL DEVELOPER, AB INITIO ETL DEVELOPER-C Norma Attending Provider LalitKenneth olivo Primary Care Provider UnavailDr. Dominick Metz Attending Provider [phone] [facility] Unavailabl e Shaun AB INITIO ETL DEVELOPER, AB INITIO ETL DEVELOPER-C Norma Referring Provider Carlos AB INITIO ETL DEVELOPER, AB INITIO ETL DEVELOPER-C Felicia Attending Provider [phone] Dr. Lorenzo Brown Attending Provider [phone] Dr. Lorenzo Brown Other Provider Dr. Dominick Mcclendon Attending Provider [phone] Kenneth Villanueva [facility] Care Provider Unavailabl e LalitKenneth Referring Provider Unavailable Shaun AB INITIO ETL DEVELOPER, AB INITIO ETL DEVELOPER-C Norma Attending Provider Dr. Lorenzo Brown Referring Provider [phone] Kenneth Villanueva [facility] Care Provider Unavailabl e Jesus AB INITIO ETL DEVELOPER, AB INITIO ETL DEVELOPER-C Flori Attending Provider [phone] Jesus AB INITIO ETL DEVELOPER, AB INITIO ETL DEVELOPER-C Flori Referring Provider [phone] Kenneth Perea Primary Care Provider Unavail able Jesus AB INITIO ETL DEVELOPER, AB INITIO ETL DEVELOPER-C Flori Attending Provider [phone] Jesus AB INITIO ETL DEVELOPER, AB INITIO ETL DEVELOPER-C Flori Referring Provider Kenneth Perea Referring Provider Unavailabl e Shaun AB INITIO ETL DEVELOPER, AB INITIO ETL DEVELOPER-C Norma Attending Provider Carlos AB INITIO ETL DEVELOPER, AB INITIO ETL DEVELOPER-C Felicia Attending Provider [phone] Dr. Lorenzo Brown Attending Provider [phone] Dr. Lorenzo Brown Referring Provider [phone] Dr. Lorenzo Brown Other Provider Dr. Dominick Mcclendon Attending Provider [phone] Dr. Macy Arevalo Attending Provider [phone] Dr. Kenneth Villanueva Primary Care Provider [phone] Dr. Macy Arevalo Referring Provider [phone] Dr. Macy Arevalo Other Provider [phone] Kenneth Perea Primary Care Provider Unavail able Kenneth Perea Referring Provider Jany Dunn AB INITIO ETL DEVELOPER, AB INITIO ETL DEVELOPER-C Norma Attending Provider Jesus AB INITIO ETL DEVELOPER, AB INITIO ETL DEVELOPER-C Flori Attending Provider Dr. Kenneth Villanueva Primary Care Provider [phone] Dr. Belle Kimble Attending Provider [phone] Dr. Macy Arevalo Referring Provider [phone] Dr. Kenneth Villanueva Referring Provider [phone] Dr. Armando Zeng Attending Provider [phone] Dr. Ketan Nayak Attending Provider Nani DIAZ, Casimiro Unavailable [phone] Anshu Fry MD, Israelia Unavailable Kenneth Villanueva DO Primary Care Provider Dr. Kenneth Villanueva Primary Care Provider [phone] Kenneth Perea Referring Provider Dr. Lorenzo Longo Attending Provider Shaun AB INITIO ETL DEVELOPER, AB INITIO ETL DEVELOPER-C Norma Attending Provider Kenneth Perea Referring Provider Jany Dunn AB INITIO ETL DEVELOPER, AB INITIO ETL DEVELOPER-C Norma Attending Provider Dr. Kenneth Villanueva Primary Care Provider [phone] Dr. Lorenzo Brown Referring Provider Dr. Lorenzo Brown Other Provider Dr. Dominick Mcclendon Attending Provider Dr. Kenneth Villanueva Referring Provider Jesus AB INITIO ETL DEVELOPER, AB INITIO ETL DEVELOPER-C Flori Attending Provider Dr. Kenneth Villanueva Primary Care Provider Dr. Kenneth Villanueva Primary Care Provider Dr. Kenneth Villanueva Referring Provider Shaun AB INITIO ETL DEVELOPER, AB INITIO ETL DEVELOPER-C Norma Attending Provider Jesus AB INITIO ETL DEVELOPER, AB INITIO ETL DEVELOPER-C Flori Attending Provider Kenneth Villanueva DO Primary Care Provider Kenneth Perea [facility]ending [facility] Dr. Kenneth Villanueva Primary Care Provider Dr. Kenneth Villanueva DO Primary Care Provider Shelby DIAZ, Dr. Barnard Attending Provider Shelby DIAZ, Dr. Barnard Referring Provider Dr. Kenneth Villanueva DO Referring Provider Jesus AB INITIO ETL DEVELOPER-CFlori Attending Provider Dr. Kenneth Villanueva DO Attending Provider Jesus AB INITIO ETL DEVELOPER-CFlori Referring Provider Kianna Del Rio Attending Provider RAJIV BAER Attending Unavailable SELF Referring Unavailable KENNETH VILLANUEVA A Primary Care Unavailable RAJIV BAER Referring Unavailable KENNETH VILLANUEVA A Primary Care Unavailable Jesus ARNOLD-CFlori Other Provider [phone] Dominick Mcclendon DO Attending Provider Carlos AB INITIO ETL DEVELOPER-CFelicia Attending Provider Carlos AB INITIO ETL DEVELOPER-CFelicia Referring Provider Dr. Lisa Bailey DO Referring Provider Dr. Lisa Bailey DO Emergency Provider Dr. Kenneth Villanueva DO Primary Care Provider [phone] Dr. Lisa Bailey DO Attending Provider [phone] Dr. Kenneth Villanueva DO Primary Care Provider Lalit WELLS, Dr. Dailey Referring Provider Lee AB INITIO ETL DEVELOPER-C, Flori Attending Provider Lalit WELLS, Dr. Dailey Attending Provider Lee AB INITIO ETL DEVELOPER-C, Flori Referring Provider Kianna Del Rio Attending Provider [phone] Lee AB INITIO ETL DEVELOPER-C, Flori Other Provider Hakan WELLS, Dr. Tan Attending Provider Carlos AB INITIO ETL DEVELOPER-C, Felicia Attending Provider [place] AB INITIO ETL DEVELOPER-C, Felicia Referring Provider Leo WELLS, Dr. Gonzalez Attending Provider Leo WELLS, Dr. Gonzalez Referring Provider Leo WELLS, Dr. Gonzalez Emergency Provider [phone] Miguel Angel Parikh MD Emergency Provider [phone] Lee AB INITIO ETL DEVELOPER, Flori Referring Unavailable Lee AB INITIO ETL DEVELOPER, Flori Attending Unavailable Lalit, Kenneth Primary Care Unavailable Lalit, Kenneth Attending Unavailable Lalit, Kenneth Referring Unavailable Lalit, Kenneth Primary Care Unavailable Lee AB INITIO ETL DEVELOPER, Flori Attending Unavailable Lalit, Kenneth Primary Care Unavailable Lalit, Kenneth Referring Unavailable Ungur, Remus Attending Unavailable Ungur, Remus Referring Unavailable Lalit, Kenneth Primary Care Unavailable Malini, Leeds Referring Unavailable Malini, Leeds Attending Unavailable Lalit, Kenneth Primary Care Unavailable Dunn AB INITIO ETL DEVELOPER, Norma Attending Unavailable Dunn AB INITIO ETL DEVELOPER, Norma Referring Unavailable Lalit, Kenneth Primary Care Unavailable Lalit, Kenneth Primary Care Unavailable Carlos AB INITIO ETL DEVELOPER, Felicia Attending Unavailable [place] AB INITIO ETL DEVELOPER, Felicia Referring Unavailable Lee AB INITIO ETL DEVELOPER, Flori Referring Unavailable Lee AB INITIO ETL DEVELOPER, Flori Attending Unavailable Lalit, Kenneth Primary Care Unavailable Lalit, Kenneth Primary Care Unavailable Carlos AB INITIO ETL DEVELOPER, Felicia Attending Unavailable Lalit, Kenneth Referring Unavailable Lalit, Kenneth Primary Care Unavailable Carlos AB INITIO ETL DEVELOPER, Felicia Attending Unavailable [place] AB INITIO ETL DEVELOPER, Felicia Referring Unavailable Lalit, Kenneth Primary Care Unavailable Lalit, Kenneth Attending Unavailable Lalit, Kenneth Referring Unavailable Malini, Ketan Attending Unavailable Lalit, Kenneth Primary Care Unavailable Lalit, Kenneth Referring Unavailable Jesus AB INITIO ETL DEVELOPER, Flori Attending Unavailable Lalit, Kenneth Referring Unavailable Lalit, Kenneth Primary Care Unavailable Thang BENJAMIN, Kianna Arroyo Attending Unavail able Lalit, Kenneth Referring Unavailable Lalit, Kenneth Primary Care Unavailable Lalit, Kenneth Referring Unavailable Lalit, Kenneth Primary Care Unavailable Carlos AB INITIO ETL DEVELOPER, Felicia Attending Unavailable Dominick Mcclendon Attending Unavailable Malini, Ketan Referring Unavailable Malini, Leeds Attending Unavailable Lalit, Kenneth Primary Care Unavailable Jesus AB INITIO ETL DEVELOPER, Flori Referring Unavailable Jesus AB INITIO ETL DEVELOPER, Flori Consulting Unavailable Lalit, Kenneth Primary Care Unavailable Dominick Mcclendon Attending Unavailable Jesus AB INITIO ETL DEVELOPER, Flori Attending Unavailable Lalit, Kenneth Primary Care Unavailable Lalit, Kenneth Referring Unavailable Lalit, Kenneth Primary Care Unavailable Miguel Angel Parikh Attending Unavailable Shelby, Jayaprakas Attending Unavailable Shelby, Jayaprakas Referring Unavailable Lalit, Kenneth Primary Care Unavailable Shaun ARNOLD-C, Norma Attending Provider Shaun ARNOLD-CNorma Referring Provider Urbano ARNOLD-C, Franklyn Valero Attending Provider [phone] Allergies Allergy Classification Reported Allergen(s) Allergy Type Date of Onset Reaction(s) Facility (2 sources) acetaminophen / HYDROcodone drug allergy 7 [facility] Work Phone: (20 sources) nabumetone; Translations: [NABUMETONE] drug allergy 6 Swelling [facility] Work Phone: (3 sources) penicillin drug allergy 3 Swelling & shortness of breath [facility] Work Phone: (8 sources) acetaminophen / HYDROcodone; Translations: [HYDROCODONE-ACET AMINOPHEN] Drug Allergy 6 Rash, Itching [facility] Repository (20 sources) Penicillins; Translations: [PENICILLINS] Propensity to adverse reactions to drug (disorder) 5 Swelling, Shortness of Breath [facility] Repository (20 sources) Doxycycline Drug Allergy 2 Itching [facility] (20 sources) HYDROcodone; Translations: [hydrocodone bitartrate] Drug Allergy 2 Itching [facility] (20 sources) carvedilol Drug Allergy 2 shortness of breath, chest pain [facility] (7 sources) Amoxicillin Drug Allergy 5 Anaphylaxis [facility] (6 sources) metroNIDAZOLE Drug Allergy 5 SOB [facility] (1 source) Amoxicillin Drug Allergy 5 [facility] Repository (1 source) carvedilol Drug Allergy 5 [facility] Repository (1 source) Doxycycline Drug Allergy 5 [facility] Repository (1 source) metroNIDAZOLE Drug Allergy 5 [facility] Repository Medications Current Medications Medication Drug Class(es) Dates Sig (Normalized) Sig (Original) amitriptyline hydrochloride 10 mg oral tablet (4 sources) Tricyclic Antidepressant Start: 01-17-2016 amitriptyline (ELAVIL) 10 mg tablet TWICE A DAY 01/17/2016 Active Comment on above: TWICE A DAY atorvastatin 80 mg oral tablet (20 sources) HMG-CoA Reductase Inhibitor Start: 03-26-2025 Start: 01-19-2025 take 2 tablets by mo [facility] at bedtime Atorvastatin 40 mg tablet Active [...] Comment on above: Take 1 tablet [facility] three times daily as needed (muscle spasms). Blood Pressure Monitor (Blood Pressure Kit) kit (19 sources) Start: 10-26-2022 Blood Pressure Monitor (Blood Pressure Kit) kit Active 0 .Route 1 October 26, 2022 1:00am As directed Start: 10-26-2022 Blood Pressure Monitor (Blood Pressure Kit) kit Active 0 .Route 1 October 26, 2022 12:00am As directed Boric Acid (Azo Boric Acid) 600 mg suppository (3 sources) Start: 02-07-2025 Boric Acid (Az o Boric Acid) 600 mg suppository Active 600 mg VAGINAL .QD February 07, 2025 12:00am 168 hr cloNIDine 0.68032 mg/hr transdermal system (7 sources) Central alpha-2 Adrenergic Agonist Start: 06-13-2024 [...] 454.1, ICD10: I83.12, I83.11 Vicente Barney MD [id number] 0.3 ml EPINEPHrine 1 mg/ml auto-injector (6 sources) alpha-Adrenergic Agonist, beta-Adrenergic Agonist, Catecholamine Start: 02-08-20 escitalopram 5 mg oral tablet (8 sources) Serotonin Reuptake Inhibitor Start: 05-21-20 16 take 1 tablet by mouth once daily escitalopram oxalate (LEXAPRO) 5 mg tablet Indications: Adjustment disorder with depressed mood Take 1 tablet by mouth once daily. 90 tablet 3 05/21/2016 Active Comment on above: Take 1 tablet by [facility] once daily. FLUoxetine 40 mg oral capsule (20 sources) Serotonin Reuptake Inhibitor Start: 03-08-20 Start: 11-10-2021 End: 07-18-2024 Start: 10-29-2020 End: 04-01-2021 Start: 10-29-2020 End: 09-05-2021 Fluticasone Furoate-Vilanter ol (20 sources) Corticosteroid, beta2-Adrenergic Agonist Start: 12-13-2024 Start: 12-13-2024 Fluticasone Fu roate-Vilanterol (Breo Ellipta) 200-25 mcg/dose blister with device Active 1 NMA INHALATION DAILY 60 December 13, 2024 1:53pm Start: 09-18-2024 End: 12-13-2024 Start: 09-18-2024 End: 12-13-2024 Fluticasone Furoate-Vilanter ol (Breo Ellipta) 200-25 mcg/dose blister with device Discontinued 1 NMA INHALATION DAILY 60 September 18, 2024 3:45pm December 13, 2024 1:54pm Start: 02-03-2024 End: 09-18-2024 Start: 02-03-2024 End: 09-18-2024 Fluticasone Furoate-Vilanter ol (Breo Ellipta) 200-25 mcg/dose blister with device Discontinued 1 NMA INHALATION DAILY 60 February 03, 2024 2:01pm September 18, 2024 3:45pm Start: 02-03-2024 Fluticasone Fu roate-Vilanterol (Breo Ellipta) 200-25 mcg/dose blister with device Active 1 INH INHALATION DAILY 60 February 03, 2024 2:01pm Start: 09-24-2023 End: [...] device Discontinued 1 NMA INHALATION DAILY 60 July 16, 2022 1:05pm January 27, 2023 9:20am Start: 07-16-2022 End: 01-27-2023 Fluticasone Furoate-Vilanter ol (Breo Ellipta) 200-25 mcg/dose blister with device Discontinued 1 INH INHALATION DAILY 60 July 16, 2022 12:05pm January 27, 2023 8:20am Start: 07-16-2022 End: 01-27-2023 Fluticasone Furoate-Vilanter ol (Breo Ellipta) 200-25 mcg/dose blister with device Discontinued 1 INH INHALATION DAILY 60 July 16, 2022 1:05pm January 27, 2023 9:20am Start: 07-16-2022 Fluticasone Fu roate-Vilanterol (Breo Ellipta) 200-25 mcg/dose blister with device Active 1 INH INHALATION DAILY 60 July 16, 2022 12:05pm Start: 09-04-2021 End: [...] with device Discontinued 1 NMA INHALATION daily 60 November 15, 2018 1:00am [...] DAY SENSOR kit gabapentin 100 mg oral michelleu kirill (20 sources) Anti-epileptic Agent Start: 03-26-2025 Start: 04-28-2017 End: 03-08-2025 Start: 04-28-2017 End: 03-08-2025 take 1 capsule by mouth three times daily Gabapentin 100 mg capsule Discontinued 100 mg PO THREE TIMES A DAY September 24, 2017 1:00am March 08, 2025 2:49pm Comment on above: TAKE 1 CAPSULE BY [facility] THREE TIMES A DAY Take by mouth. Take 1 capsule by [facility] daily at bedtime. For RLS-PRN does not take nightly handicap Placcard (4 sources) Start: 01-19-2025 handicap Placcard Active 0 .Route .MEDSUPPLY January 19, 2025 12:00am Dx: COPD Exp: 01/2030 Incontinence Pad, Liner, Disp (PREVAIL BLADDER CONTROL PAD) pads (6 sources) Start: 06-29-2016 Incontinence Pad, Liner, Disp (PREVAIL BLADDER CONTROL PAD) pads 1 Units as needed. 50 Each 12 06/29/2016 Active Comment on above: 1 Units as needed. labetalol hydrochloride 200 mg oral tablet (12 sources) beta-Adrenergic Vishal Start: 03-08-2025 End: 03-28-2025 Start: 03-08-2025 Labetalol 200 mg tablet Active 400 mg PO March 08, 2025 12:00am Start: 01-19-2025 End: 03-28-2025 magnesium oxide 400 mg oral capsule (7 sources) Start: 07-18-2024 miSOPROStol 0.2 mg oral [...] Take 1 tablet by [facility] once daily. nystatin [id number] unt/ml topical cream (4 sources) Polyene Antifungal Start: 03-08-2025 pantoprazole 40 [...] End: 08-14-2022 Start: 04-11-2018 End: 09-04-2021 Start: 04-28-2017 take 4 tablets by mo ut every twenty-four hours K-TAB 10 MEQ CR-TABS Four tabs once daily POTASSIUM CHLORIDE [id number] Kathryn Ravi Start: 12-03-2016 End: 06-13-2024 Start: 12-03-2016 End: 06-13-2024 Start: 12-03-2016 End: 06-17-2022 take 1 tablet by mouth once daily Potassium Chloride 20 mEq tablet,ER particles/crystals Discontinued 20 meq PO DAILY September 04, 2021 11:07am June 17, 2022 2:52pm Start: 08-28-2016 take 4 tablets by mo ut once daily potassium chloride (K-TAB) 10 mEq tablet Indications: Lower leg edema Take 4 tablets by mouth once daily. 120 tablet 11 08/28/2016 Active Comment on above: Take 4 tablets by mo [facility] once daily. psyllium 520 mg oral capsule (7 sources) Start: 07-18-2024 spironolactone 50 mg oral [...] Comment on above: TAKE 1 TABLET BY [facility] TWICE DAILY sulfamethoxazole 800 mg / trimethoprim [...] Comment on above: Take 1 tablet by [facility] as needed for Migraine Headache [...] 03-08-2025 Start: 07-18-2024 take 1 capsule by [facility] once daily Topiramate (Trokendi Xr) 100 mg [...] Comment on above: Take 1 capsule by [facility] once daily. traZODone hydrochloride 50 m g oral tablet (20 sources) Serotonin Reuptake Inhibitor Start: 03-08-2025 Start: 03-08-2025 take 1 tablet by [facility] at bedtime Trazodone 50 mg tablet Active [...] hrs as needed for pain HYDROCODONE-ACETAM INOPHEN [id number] Kathryn Cota Trav take 1-2 tablets by mouth every six hours as needed for pain HYDROCODONE-ACETAMINOPHEN 5-500 MG TABS 1-2 tabs by mouth every 6 hrs as needed for pain HYDROCODONE-ACETAMINOPHEN [id number] Keara Ambrosio acetaminophen 325 mg / oxyCO DONE hydrochloride 5 mg oral tablet (20 sources) Opioid Agonist Start: 09-11-2022 End: 10-26-2022 Start: 09-11-2022 End: 10-26-2022 Oxycodone-Acetaminophen 5-32 5 mg tablet Discontinued 1 {tbl} PO EVERY 6 HOURS NEEDED as needed for Pain 12 3 September 11, 2022 October 26, 2022 11:53am Start: 09-11-2022 End: 10-26-2022 take 1 tablet by mouth every six hours as needed Oxycodone-Acetaminophen Discontinued 1 TABLET PO EVERY 6 HOURS NEEDED 12 3 September 11, 2022 October 26, 2022 11:53am [id number] 200 actuat albuterol 0.09 mg/actuat metered dose [...] every 6 hrs as needed ALBUTEROL SULFATE [id number] Keara Ambrosio PROAIR HFA 108 ( 90 Base) MCG/ACT AERS 2 puffs every 4-6 hrs as needed for shortness of breath ALBUTEROL SULFATE [id number] Keara Ambrosio PROAIR HFA 108 ( 90 Base) MCG/ACT AERS 2 puffs every 4-6 hrs as needed for shortness of breath ALBUTEROL SULFATE [id number] Keara Ambrosio Comment on above: Use 3 mL via nebuliz er every 6 hours as needed. As needed via nebulizer for asthma 2 Puffs every 4-6 ho urs as needed for shortness of breath albuterol 0.833 mg/ml / ipratropium bromide 0.167 mg/ml inhalation solution (20 sources) Anticholinergic, beta2-Adrenergic Agonist Start: 3 End: take 1 mL by inhalation four times [...] TIMES A DAY as needed for SOB 180 December 08, 2021 12:58pm October 27, 2022 11:13am Start: 11-10-2021 End: 10-27-2022 take 1 mL by inhalation three times daily Ipratropium-Albuterol Discontinued 3 ML INHALATION THREE TIMES A DAY 180 December 08, 2021 11:58am October 27, 2022 [...] by mouth three times daily CLINDAMYCIN HCL [id number] Kathryn Ravi dexamethasone 6 mg oral tablet (20 sources) Corticosteroid Start: 10-09-2022 End: 10-27-2022 diazePAM 5 mg oral tablet (5 sources) Benzodiazepine Start: 11-12-2012 End: 04-29-2017 take 1 tablet by mouth four times daily as needed for muscle spasms VALIUM 5 MG TABS One tablet by mouth four times daily as needed for spasm DIAZEPAM [id number] Jodee Calloway MD dicyclomine hydrochloride 10 mg oral capsule (20 sources) Anticholinergic Start: 04-28-2017 BENTYL 10 MG CAPS One cap before meals and at bedtime DICYCLOMINE HCL [id number] Kathryn Ravi Start: 12-03-2016 End: 07-18-2024 Start: 12-03-2016 End: 07-18-2024 Start: 12-03-2016 End: 09-22-2022 take 1 capsule by mouth every six hours Dicyclomine 10 mg capsule Discontinued 10 mg PO EVERY 6 HOURS April 01, 2021 3:03pm September 22, 2022 11:12am Comment on above: TAKE 1 CAPSULE BY [facility] BEFORE MEALS AND TAKE 1 CAPSULE AT BEDTIME docusate sodium 100 mg oral tablet (5 sources) Start: 11-12-2012 End: 04-29-2017 take 1 tablet by mouth twice daily COLACE 100 MG CAPS One tablet by mouth twice daily DOCUSATE SODIUM [id number] Jodee Calloway MD Start: 11-12-2012 take 1 tablet by [facility] twice daily COLACE 100 MG CAPS One tablet by mouth twice daily DOCUSATE SODIUM [id number] Jodee Calloway MD doxazosin 8 mg oral [...] 12-07-2023 ferrous sulfate 325 mg oral tablet (13 sources) Start: 06-22-2023 End: 12-07-2023 fluticasone propionate [...] in each nostril once daily FLUTICASONE PROPIONATE [id number] Kathryn L Trav Start: 02-27-2016 take 2 spray(s) by m [facility] once daily fluticasone (FLONASE) 50 mcg/actuation nasal [...] twice daily. Rinse mouth after use FLUTICASONE-SALMETEROL [id number] Kathryn L Trav Start: 11-11-2016 take 1 puff(s) by [facility] twice daily fluticasone-salmeterol (ADVAIR DISKUS) 250-50 mcg/dose dsdv Indications: Uncomplicated asthma, unspecified asthma severity Inhale 1 Puff as instructed twice daily. RINSE MOUTH AFTER USE. 3 Inhaler 3 11/11/2016 Active ADVAIR DISKUS 25 0-50 MCG/DOSE AEPB in min 1 puff FLUTICASONE-SALMETEROL [id number] Keara Ambrosio ADVAIR DISKUS 25 0-50 MCG/DOSE AEPB in min 1 puff FLUTICASONE-SALMETEROL [id number] Keara Ambrosio Comment on above: Inhale 1 Puff as ins tructed twice daily. RINSE MOUTH AFTER USE. furosemide 40 mg oral tablet (20 sources) Loop Diuretic Start: 05-31-2020 End: 03-28-2025 Start: 05-31-2020 End: 07-18-2024 Start: 05-18-2019 End: [...] One tablet by mouth twice daily FUROSEMIDE [id number] Kathryn Ravi Start: 12-03-2016 End: 11-10-2018 Furosemide [...] TABS One tablet by mouth daily FUROSEMIDE [id number] Keara Ambrosio Comment on above: Take 1 [...] Opioid Agonist Start: 11-12-19 13 End: 04-29-20 17 take 1-2 tablets by mouth four times daily as needed for pain DILAUDID 2 MG TABS one to two tablets by mouth four times daily as needed for pain HYDROMORPHONE HCL [id number] Jodee Calloway MD ibuprofen 800 mg oral tablet (5 sources) Nonsteroidal Anti-inflammatory Drug End: 04-29-20 17 take 1 tablet by mouth every eight hours for pain IBUPROFEN 800 MG TABS 1 tab by mouth every 8 hrs for pain IBUPROFEN [id number] Keara R Hebert irbesartan 150 mg oral tablet (20 sources) [...] tablet by mouth twice daily LACTOBACILLUS CAPS [id number] Kathryn Ravi Start: 11-12-2012 take 1 tablet by [facility] twice daily ACIDOPHILUS PROBIOTIC CAPS One tablet by mouth twice daily LACTOBACILLUS CAPS [id number] Jodee Calloway MD levoFLOXacin 750 mg oral [...] mL) pen injector Discontinued 0.6 mg SC May 18, 2019 12:00am September 04, 2021 11:10am Start: 04-28-2017 take 0.6 mg by subcu taneous injection every week, then take 1.2 mg by subcutaneous injection every week, then take 1.8 mg by subcutaneous injection VICTOZA 18 MG/3ML SOPN 0.6mg subc after one week increase to 1.2mg and after 1 week increase to 1.8mg LIRAGLUTIDE [id number] Kathryn Ravi Start: 12-03-2016 End: 09-24-2017 lisinopril 2.5 mg oral table t (20 sources) Angiotensin Converting Enzyme Inhibitor Start: 05-18-2019 End: 04-01-2021 Start: 05-08-2019 End: 05-18-2019 Start: 01-12-2019 End: 05-08-2019 Start: 01-12-2019 End: 05-08-2019 Start: 01-12-2019 End: [...] sources) Biguanide Start: 03-31-2019 End: 09-04-2021 Start: 11-07-2018 End: 09-22-2022 Start: 11-07-2018 End: 09-22-2022 Start: 11-07-2018 End: 09-22-2022 Start: 11-07-2018 End: 03-31-2019 take 1 tablet by mouth once daily Metformin 500 MG tablet Discontinued 500 mg PO DAILY November 07, 2018 1:00am March 31, 2019 10:24am Start: 04-28-2017 METFORMIN HCL 1000 MG TABS One tab twice daily with meals METFORMIN HCL [id number] Kathryn Cota Trav Start: 03-25-2016 End: 04-11-2018 Comment on above: Take 1 tablet by lynne twice daily before meals. metOLazone 5 mg [...] THERAGRAN-M TABS One tab daily MULTIPLE VITAMINS-MINERALS [id number] Kathryn Ravi naproxen 500 mg oral tablet (20 sources) Nonsteroidal Anti-inflammatory Drug Start: 03-29-2017 End: 04-11-2018 Comment on above: Take 500 mg by mouth twice daily with meals. nitrofurantoin, macrocrystals 25 mg / nitrofurantoin, monohydrate 75 mg oral capsule (15 sources) Nitrofuran Antibacterial Start: 02-19-2023 End: 02-26-2023 [...] CPDR One tablet by mouth daily OMEPRAZOLE [id number] Keara Ambrosio Comment on above: Take 1 capsule by mo [facility] once daily. ondansetron 4 mg disintegrat ing [...] 6 hrs as needed for nausea/vomiting ONDANSETRON [id number] Kathrynlane Ravi Start: 04-30-2016 take 1 tablet by lynne every six hours as needed ondansetron orally disintegrating (ZOFRAN ODT) 4 mg disintegrating tablet Take 1 tablet by mouth every 6 hours as needed for Nausea/Vomiting. 20 tablet 0 04/30/2016 Active Comment on above: Take 1 tablet by lynne th every 6 hours as needed for Nausea/Vomiting. oseltamivir 75 mg oral capsule (13 sources) Neuraminidase Inhibitor Start: 11-17-2023 End: 12-07-2023 Start: 11-17-2023 End: 12-07-2023 take 1 capsule by mouth twice daily Oseltamivir 75 mg capsule Discontinued 75 mg PO TWICE A DAY November 17, 2023 1:00am December 07, 2023 9:59am Comment on above: Take 1 capsule by [facility] every 12 hours. POLYETHYLENE GLYCOL 3350 (5 sources) Osmotic Laxative End: 04-29-2017 take 1 dose by mouth once daily POLYETHYLENE GLYCOL 3350 PACK 1 packet by mouth once daily POLYETHYLENE GLYCOL 3350 [id number] Kathryn Ravi take 1 dose by mouth once daily POLYETHYLENE GLYCOL 3350 PACK 1 packet by mouth once daily POLYETHYLENE GLYCOL 3350 [id number] Keara Ambrosio predniSONE 20 mg oral tablet [...] on above: Take 1 tablet by lynne as directed. promethazine hydrochloride 2 5 mg [...] daily as needed for nausea PROMETHAZINE HCL [id number] Jodee Calloway MD End: 04-29-2017 PROMETHAZINE HCL 25 MG TABS 1 tab every 8 hrs PROMETHAZINE HCL [id number] Keara Ambrosio sertraline 100 mg oral tablet (20 sources) Serotonin Reuptake Inhibitor Start: 10-02-2017 End: 09-05-2021 Comment on above: Take 1 tablet by lynne th once daily. skin protectants, misc. pads (20 [...] once daily DIVALPROEX SODIUM ER 500 MG [id number] One tablet by mouth daily DIVALPROEX SODIUM [id number] Kathryn Ravi verapamil hydrochloride 240 mg extended [...] tablet by mouth twice daily VERAPAMIL HCL [id number] Keara Ambrosio take 1 tablet by lynne th twice daily VERAPAMIL HCL ER 240 MG CR-TABS One tablet by mouth twice daily VERAPAMIL HCL [id number] Keara Ambrosio Comment on above: TAKE 1 [...] unspecified] Onset: 7 Chronic E Codes: Fall (15 sources) Accidental fall ; Translations: [Unspecified fall, initial encounter] 05-05-2023 Episodic Esophageal disorders (8 sources) Gastroesophageal reflux disease; Translations: [Gastro-esophageal reflux disease without esophagitis] Onset: 6 Resolved: 7 02-23-2008 Chronic Essential hypertension (20 sources) Essential (primary) hypertension; Translations: [Essential hypertension] Onset: 5 Chronic Fluid and electrolyte disorders (12 sources) Acidosis; Translations: [Dehydration] Onset: 6 10-09-2023 [...] Chronic Immunizations and screening for infectious disease (16 sources) Contact with and (suspected) exposure to infections with a predominantly sexual mode of transmission; Translations: [Contact with or exposure to venereal diseases] Onset: 5 10-26-2022 Episodic Influenza (10 sources) Influenza due to Influenza A virus; [...] and vaginal bleeding, unspecified] 10-20-2022 Chronic Other infections; including parasitic (2 sources) Infection by Trichomonas; Translations: [Trichomoniasis, unspecified] 03-27-2025 Episodic Other injuries and conditions due to external causes (15 sources) Closed injury of head; Translations: [Unspecified [...] abscess, unspecified] 09-19-2022 Episodic Superficial injury; contusion (15 sources) Contusion of knee; Translations: [Contusion of right knee, initial encounter] 05-05-2023 Episodic Syncope (3 sources) Near syncope; Translations: [Syncope and collapse] [...] use of insulin] Onset: 6 08-18-2016 Unclassified (9 sources) Primary hypertension; Translations: [I10 - Essential (primary) hypertension] Urinary tract infections (3 sources) Urinary tract infectious disease; Translations: [Urinary tract infection, site not specified] 03-26-2025 Episodic Varicose veins of lower extremity (20 sources) Varicose vein of leg with phlebitis; Translations: [Varicose veins of right lower extremity with inflammation] Onset: 6 03-20-2019 Episodic Past or Other Problems Problem Classification Problem Date Documented Da te Episodic/Chronic Abdominal hernia (3 sources) Incisional hernia without obstruction or gangrene; Translations: [Incisional hernia without obstruction or gangrene] Onset: 10-18-2012 10-18-2012 Episodic Acute and unspecified renal failure (1 source) Acute kidney failure, unspecified; Translations: [Acute kidney failure, unspecified] Onset: 11-01-2024 Episodic Endometriosis (5 sources) Endometriosis, unspecified; Translations: [...] Test Name Value Interpretation Reference Range Facility HIVon 03-27-2025 HIV Non-Reactive Normal Nonreactive [facility] Comment on above: Result Comment: Non- Reactive Reactive Repeatedly reactive samples must be confirmed according to CDC recommended confirmatory algorithms. The subresults for either HIVAG or AHIV can be used as an aid in the selection of the confirmation algorithm for reactive samples. Send out specimens with Reactive results to [facility] for confirmation. Order the HIV antibody detection and differentiation: lc#[id number] Performed By: #### L 3890.6006, L509.8002 #### [facility] [place], [address] No Panel InformationOrdered By: Felicia Gonzalez on 03-27-2025 Non-Reactive Nonreactive [facility] [employer] And Loan Collections Supervisor Office Visit Reporton 03-27-2025 Credit And Loan Collections Supervisor Office Visit Report [facility], [address] [place] [address] OFFICE VISIT Date of Service: 03/27/25 MR#: [id number] Acct: [id number] Name: CLIFTON CAGE Rep #: [id number] : 1980 Provider: OSMANY cervantes Age/Sex: 44/F Location: [facility] Status: Signed Intake Vital Signs 02/06/25 11:20 03/08/25 08:34 03/26/25 17:48 03/27/25 11:40 03/27/25 11:51 Height 5 ft 8 in 5 ft 8 in 5 ft 8 in 5 ft 8 in 5 ft 8 in Weight: 253 lb 6 oz BMI 38.5 BP 160/82 H Intake Visit Reasons: BREEZY Chief Complaint: BREEZY 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 Is patient in pain?: No Allergies amoxicillin Allergy (Severe, Verified 03/27/25 12:14) Anaphylaxis metronidazole Allergy (Severe, Verified 03/27/25 12:14) SOB nabumetone Allergy (Unknown, Verified 03/27/25 12:14) Unknown hydrocodone bitartrate (From [place]) Allergy (Verified 03/27/25 12:14) Itching Penicillins Allergy (Verified 03/27/25 12:14) Swelling carvedilol Adverse Reaction (Severe, Verified 03/27/25 12:14) shortness of breath, chest pain doxycycline Adverse Reaction (Verified 03/27/25 12:14) Itching Medications ???Medication ???Instructions ???Recorded ???Confirmed ???Type pantoprazole 40 mg tablet,delayed 40 mg PO DAILY GERD/reflux 03/27/25 History release PEP device #1 ea 10/08/22 03/27/25 Rx blood pressure monitor (Blood #1 ea 10/26/22 03/27/25 Rx Pressure Kit) clonidine 0.2 mg/24 hr weekly 1 patch topical QWEEK 06/13/24 History transdermal patch potassium chloride 10 mEq 10 meq PO BID 06/13/24 03/27/25 Hi story tablet,extended release spironolactone 50 mg tablet 50 mg PO QDAY 06/13/24 03/27/25 Hi story tirzepatide 5 mg/0.5 mL mg subcut 06/13/24 03/27/25 Histor y subcutaneous pen injector (Mounvenuro) dicyclomine 10 mg capsule 10 mg PO .qid IBS 07/18/24 5 History furosemide 40 mg tablet 40 mg PO QDAY 07/18/24 03/27/25 Hi story irbesartan 150 mg tablet 300 mg PO QDAY 07/18/24 03/27/25 H istory magnesium oxide 400 mg PO QDAY 07/18/24 03/27/25 H istory psyllium husk 0.52 gram capsule 0.52 g PO QDAY 07/18/24 03/27/25 H istory (Fiber-Caps (psyllium husk)) topiramate 100 mg capsule,extended 150 mg PO QDAY 07/18/24 03/27/25 History release 24 hr (Trokendi XR) albuterol sulfate 90 mcg/actuation 2 puff inhalation Q6H PRN SOB #8 .5 12/13/24 03/27/25 Rx aerosol inhaler grams fluticasone furoate 200 1 inh inhalation DAILY #60 ea 12/0203/27/25 Rx mcg-vilanterol 25 mcg/dose inhalation powder (Breo Ellipta) ipratropium 0.5 mg-albuterol 3 mg 3 ml inhalation .QID PRN SOB #180 12/13/24 03/27/25 Rx (2.5 mg base)/3 mL nebulization mL soln montelukast 10 mg tablet 10 mg PO QDAY #90 tabs 12/13/24 Rx amlodipine 10 mg tablet 10 mg PO BID #180 tabs 01/03/25 Rx handicap Placcard #1 ea 01/19/25 03/27/25 Rx labetalol 400 mg tablet 400 mg PO BID #60 tabs 01/19/25 Rx boric acid 600 mg vaginal 600 mg vaginal .QD 21 days #21 ea 02/07/25 03/27/25 Rx suppository (Azo Boric Acid) epinephrine 0.3 mg/0.3 mL 0.3 mg (0.3 mL) IM Q10M PRN PRN 03/27/25 Rx injection, auto-injector (EpiPen) anaphylaxis #2 ea hydralazine 50 mg tablet See Rx Instructions .Route 5 03/27/25 Rx .COMPLEX #240 tabs fluoxetine 40 mg capsule 40 mg PO QDAY 03/08/25 03/27/25 Hi story labetalol 200 mg tablet 400 mg PO 03/08/25 03/27/25 Histor y nystatin 100,000 unit/gram topical applic topical 03/08/25 03/27/25 History cream tirzepatide 2.5 mg/0.5 mL 2.5 mg subcut QWEEK 03/08/2503/27 History subcutaneous pen injector (Mounjaro) topiramate 50 mg capsule,extended 50 mg PO QDAY 03/08/25 03/27/25 H istory release 24 hr (Trokendi XR) trazodone 50 mg tablet 50 mg PO QHS 03/08/25 03/27/25 His tory atorvastatin 80 mg tablet 80 mg PO DAILY 03/26/25 03/27/25 H istory gabapentin 100 mg capsule 100 mg PO TID 03/26/25 03/27/25 Hi story sulfamethoxazole 800 1 tab PO Q12H 7 days #14 tabs 03/0503/27/25 Rx mg-trimethoprim 160 mg tablet (Bactrim DS) Is last menstrual period known: No Post menopausal: No Patient : No : No Nurse's Note: No menses d/t ablation. [facility] Medical History Near syncope Depression Anxiety Diabetes Bladder disease Low iron Fatty liver Easy bruising Neuropathy Injury of back Migraine headache Seizures Dietary restriction Bowel obstruction Chronic constipation Gastric reflux Central sleep apnea treated with adaptive servo-ventilation (ASV) device History of Holter monitoring History of echocardiogram History of stress test Failure to thrive Hypertension Cardiology follow-up (more content not included)... Normal [facility] Syphilis Antibodieson 2024 Syphilis Abs Non-Reactive Normal Nonreactive [facility] Comment on above: Performed By: #### L 3890.6006, L509.8002 #### [facility] [address] [place], [address] 12 Lead EKGon 03-26-2025 12 Lead EKG [facility] Cardiovascular Services [address] [place] [address] 12 Lead EKG 03/26/25 1758 MR#: [id number] Acct: [id number] Name: CLIFTON CAGE Rep #: [id number] : 1980 44 From: Ketan Nayak MD Attending Dr: Status: DEP ER Ordering Dr: Miguel Angel Parikh MD Date: 03/26/25 Location: ED Sex: F C Admitted: Test Reason : syncope Blood Pressure : */* mmHG Vent. Rate : 83 BPM Atrial Rate : 83 BPM P-R Int : 182 ms QRS Dur : 78 ms QT Int : 422 ms P-R-T Axes : 60 75 61 degrees QTcB Int : 495 ms Normal sinus rhythm Possible Left atrial enlargement Low voltage QRS Prolonged QT Abnormal ECG Confirmed by MALINI DIAZ, KETAN ([id number]), online content editor ALYSIA HEBERT ([id number]) on 03/27/2025 11:16:26 AM Referred By: Confirmed By: KETAN NAYAK MD 03/27/25 1116 Date Ketan Nayak MD CC: Dr. Miguel Angel Parikh MD; Dr. Kenneth Villanueva DO Signed Normal [facility] Absolute lymphocyte countOrd ered By: Miguel Angel Parikh on 03-26-2025 Lymphocytes Auto (Unsp spec) [#/Vol] 2.16 10*3/uL 0.83-4.51 [facility] Alcohol, Blood (Medical)-Ser umon 03-26-2025 SERUM ETOH < 10.1 Normal <=10.0 [facility] Comment on above: Result Comment: This test is for medical purposes only. The legal definition of intoxication varies according to local law. Performed By: #### L 700.6800, L501.9100, L100.0100, L505.5000, L500.4050 ####[facility] [address] [facility]. [place], [place], [address] Amphetamine detection with 1 000 ng/mL as cutoffOrdered By: Miguel Angel Parikh on 03-26-2025 Amphetamines Screen method >1000 ng/mL Ql (U) Negative < 200 ng/mL [facility] Anion gap in Serum or Plasma Ordered By: Miguel Angel Parikh on 03-26-2025 Anion gap [Moles/Vol] 14 mmol/L 5-15 [facility] Automated lymphocyte count a s percentage of total leukocytesOrdered By: Miguel Angel Parikh on 03-26-2025 Lymphocytes/100 WBC Auto (Unsp spec) 18.6 % Low 19-41 [facility] BUN/creatinine ratioOrdered By: Miguel Angel Parikh on 03-26-2025 Urea nitrogen/Creatinine [Mass ratio] 14.2 mg/mg 10-20 [facility] Basophil percentageOrdered B y: Miguel Angel Parikh on 03-26-2025 Basophils/100 WBC (Bld) 0.3 % 0-1 [facility] Bilirubin Test strip Ql (U)O rdered By: Miguel Angel Parikh on 03-26-2025 Bilirubin Ql (U) Negative Negative [facility] Bilirubin, totalOrdered By: Miguel Angel Parikh on 03-26-2025 Bilirubin [Mass/Vol] 0.64 mg/dL 0.00-1.30 [facility] Brain/Head without Contrasto n 03-26-2025 Brain/Head without Contrast [facility] Imaging Services [address] [place], [place] [address] Brain/Head without Contrast MR#: [id number] Acct: [id number] Name: CLIFTON CAGE Tania Rep #: [id number] : 1980 F 44 From: Benedicto Christopher MD PCP: Dr. Kenneth Villanueva, DO Status: REG ER Study: Brain/Head without Contrast Date of Exam: 03/05 12/26 Exam# [id number] Ordering Dr: Miguel Angel Parikh MD PROCEDURE: BRAIN/HEAD WITHOUT CONTRAST 03/26/2025 REASON FOR EXAM: SYNCOPE TECHNIQUE: BRAIN/HEAD WITHOUT CONTRAST Coronal and Sagittal reconstruction series were provided. One or more dose reduction techniques were used (e.g., Automated exposure control, adjustment of the mA and/or kV according to patient size, use of iterative reconstruction technique. RADIATION DOSE SUMMARY: CTDlvol: 45.0 mGy DLP: 813 mGycm COMPARISON: CT head 11/26/2023 FINDINGS: Brain: No acute intracranial hemorrhage, mass effect, or midline shift. Marcus-white matter differentiation is maintained. CSF Spaces: Normal Sinuses/Mastoids: Clear at visualized levels Bones: Unremarkable. CT/Brain/Head without Contrast IMPRESSION: No acute intracranial abnormality. Reading Location: [id number] CC: Dr. Miguel Angel Parikh MD; Dr. Kenneth Villanueva DO Shoe Turner: Signed Normal [facility] CBC W/Diff, Automatedon 03-05 Absolute Lymph 2.16 X10 3/uL Normal 0.83-4.51 [facility] Comment on above: Performed By: #### L 700.6800, L501.9100, L100.0100, L505.5000, L500.4050 ####[facility] [address] [place], [address] Absolute Neut 8.5 X10 3/uL High 2.0-7.7 [facility] Comment on above: Performed By: #### L 700.6800, L501.9100, L100.0100, L505.5000, L500.4050 ####[facility] [address] [place], [address] Basophils/100 WBC (Bld) 0.3 % Normal 0-1 [facility] Comment on above: Performed By: #### L 700.6800, L501.9100, L100.0100, L505.5000, L500.4050 ####[facility] [address] [place], [address] Eosinophils/100 WBC (Bld) 0.9 % Normal 0-5 [facility] Comment on above: Performed By: #### L 700.6800, L501.9100, L100.0100, L505.5000, L500.4050 ####[facility] [address] [place], [address] Erythrocyte distribution width (RBC) [Ratio] 13.2 % Normal 11.6-14.6 [facility] Comment on above: Performed By: #### L 700.6800, L501.9100, L100.0100, L505.5000, L500.4050 ####[facility] [address] [place], [address] Hematocrit (Bld) [Volume fraction] 40.7 % Normal 37-47 [facility] Comment on above: Performed By: #### L 700.6800, L501.9100, L100.0100, L505.5000, L500.4050 ####[facility] [address] [place], [address] Hemoglobin (Bld) [Mass/Vol] 13.8 g/dL Normal 12.0-15.0 [facility] Comment on above: Performed By: #### L 700.6800, L501.9100, L100.0100, L505.5000, L500.4050 ####[facility] [address] [place], [address] IG% 0.300 Normal 0.0-0.9 [facility] Comment on above: Result Comment: IG% - Immature Granulocytes (promyelocytes, myelocytes and metamyelocytes) > 1% indicates that a LEFT SHIFT is Present. Performed By: #### L 700.6800, L501.9100, L100.0100, L505.5000, L500.4050 ####[facility] [address] [place], [address] Lymphocytes/100 WBC (Bld) 18.6 % Low 19-41 [facility] Comment on above: Performed By: #### L 700.6800, L501.9100, L100.0100, L505.5000, L500.4050 ####[facility] [address] [place], [address] MCH (RBC) [Entitic mass] 28.2 pg Normal 27.0-32.0 [facility] Comment on above: Performed By: #### L 700.6800, L501.9100, L100.0100, L505.5000, L500.4050 ####[facility] [address] [place], [address] MCHC (RBC) [Mass/Vol] 33.9 g/dL Normal 32-36 [facility] Comment on above: Performed By: #### L 700.6800, L501.9100, L100.0100, L505.5000, L500.4050 ####[facility] [address] [place], [address] MCV (RBC) [Entitic vol] 83.2 fL Normal 81-99 [facility] Comment on above: Performed By: #### L 700.6800, L501.9100, L100.0100, L505.5000, L500.4050 ####[facility] [address] [place], [address] Monocytes/100 WBC (Bld) 6.7 % Normal 0-10 [facility] Comment on above: Performed By: #### L 700.6800, L501.9100, L100.0100, L505.5000, L500.4050 ####[facility] [address] [place], [address] Neutrophils/100 WBC (Bld) 73.2 % High 47-70 [facility] Comment on above: Performed By: #### L 700.6800, L501.9100, L100.0100, L505.5000, L500.4050 ####[facility] [address] [place], [address] Nucleated RBC (Bld) [#/Vol] 0 10*3/uL Normal 0-5 [facility] Comment on above: Performed By: #### L 700.6800, L501.9100, L100.0100, L505.5000, L500.4050 ####[facility] [address] [place], [address] Platelet mean volume (Bld) [Entitic vol] 9.5 fL Normal 6.2-12.0 [facility] Comment on above: Performed By: #### L 700.6800, L501.9100, L100.0100, L505.5000, L500.4050 ####[facility] [address] [place], [address] Platelets (Bld) [#/Vol] 260 10*3/uL Normal 150-450 [facility] Comment on above: Performed By: #### L 700.6800, L501.9100, L100.0100, L505.5000, L500.4050 ####[facility] [address] [place], [address] RBC (Bld) [#/Vol] 4.89 10*6/uL Normal 4.2-5.4 [facility] Comment on above: Performed By: #### L 700.6800, L501.9100, L100.0100, L505.5000, L500.4050 ####[facility] [address] [place], [address] RDW SD 39.8 fl Normal 35.1-43.9 [facility] Comment on above: Performed By: #### L 700.6800, L501.9100, L100.0100, L505.5000, L500.4050 ####[facility] [address] [place], [address] WBC (Bld) [#/Vol] 11.6 10*3/uL High 4.4-11.0 [facility] Comment on above: Performed By: #### L 700.6800, L501.9100, L100.0100, L505.5000, L500.4050 ####[facility] [address] [place], [address] Calcium oxalate crystals det ection in urine sediment by light microscopyOrdered By: Miguel Angel Parikh on 03-26-2025 Calcium oxalate crystals LM Ql (Urine sed) 1+ /hpf [facility] Carbon dioxide, total [Moles /volume] in Central venous bloodOrdered By: Miguel Angel Parikh on 03-26-2025 CO2 [Moles/Vol] 22.2 mmol/L 21.0-32.0 [facility] Chest 1 View (Portable)on Chest 1 View (Portable) [facility] Imaging Services [address] [place], [place] [address] Chest 1 View (Portable) MR#: [id number] Acct: [id number] Name: CLIFTON CAGE Rep #: [id number] : 1980 F 44 From: Benedicto Christopher MD PCP: Dr. Kenneth Villanueva, DO Status: [facility] ER Study: Chest 1 View (Portable) Date of Exam: 03/26/25 Exam# [id number] Ordering Dr: Miguel Angel Parikh MD PROCEDURE: CHEST 1 VIEW (PORTABLE) 03/26/2025 REASON FOR EXAM: HYPERTENSION, COPD TECHNIQUE: Frontal view of the chest. COMPARISON: Chest radiographs on 02/07/2025 and 11/26/2023 FINDINGS: Hardware: None Heart: Cardiac and mediastinal contours are stable. Lungs: No focal consolidation or pleural effusion. Unchanged elevation of the left hemidiaphragm. Bones: The bones are unremarkable. RAD/Chest 1 View (Portable) IMPRESSION: No acute cardiopulmonary abnormality. Reading Location: [facility] CC: Dr. Miguel Angel Parikh MD; Dr. Kenneth Villanueva DO Shoe Turner: Signed Normal [facility] Chloride assayOrdered By: Dylan Parikh on 03-26-2025 Chloride [Moles/Vol] 101 mmol/L 98-108 [facility] Comprehensive Metabolic Prof ilon 03-26-2025 Albumin [Mass/Vol] 3.8 g/dL Normal 3.5-5.0 [facility] Comment on above: Performed By: #### L 700.6800, L501.9100, L100.0100, L505.5000, L500.4050 ####[facility] [address] [place], [address] Albumin/Globulin [Mass ratio] 1.2 {ratio} Normal 0.9-2.4 [facility] Comment on above: Performed By: #### L 700.6800, L501.9100, L100.0100, L505.5000, L500.4050 ####[facility] [address] [place], [address] ALK PHOS 84 U/L Normal 35-104 [facility] Comment on above: Performed By: #### L 700.6800, L501.9100, L100.0100, L505.5000, L500.4050 ####[facility] [address] [place], [address] ALT [Catalytic activity/Vol] 52 U/L High <=34 [facility] Comment on above: Performed By: #### L 700.6800, L501.9100, L100.0100, L505.5000, L500.4050 ####[facility] [address] [place], [address] AST [Catalytic activity/Vol] 44 U/L High <=31 [facility] Comment on above: Result Comment: Hemo lysis present, Results??could be affected. ?? Performed By: #### L 700.6800, L501.9100, L100.0100, L505.5000, L500.4050 ####[facility] [address] [place], [address] Bilirubin [Mass/Vol] 0.64 mg/dL Normal 0.00-1.30 [facility] Comment on above: Performed By: #### L 700.6800, L501.9100, L100.0100, L505.5000, L500.4050 ####[facility] [address] [place], [address] BUN/CRE 14.2 RATIO Normal 10-20 [facility] Comment on above: Performed By: #### L 700.6800, L501.9100, L100.0100, L505.5000, L500.4050 ####[facility] [address] [place], [address] Calcium [Mass/Vol] 8.9 mg/dL Normal 7.6-11.0 [facility] Comment on above: Performed By: #### L 700.6800, L501.9100, L100.0100, L505.5000, L500.4050 ####[facility] [address] [place], [address] Chloride [Moles/Vol] 101 mmol/L Normal 98-108 [facility] Comment on above: Performed By: #### L 700.6800, L501.9100, L100.0100, L505.5000, L500.4050 ####[facility] [address] [place], [address] CO2 [Moles/Vol] 22.2 mmol/L Normal 21.0-32.0 [facility] Comment on above: Performed By: #### L 700.6800, L501.9100, L100.0100, L505.5000, L500.4050 ####[facility] [address] [place], [address] Creatinine [Mass/Vol] 1.09 mg/dL Normal 0.70-1.20 [facility] Comment on above: Performed By: #### L 700.6800, L501.9100, L100.0100, L505.5000, L500.4050 ####[facility] [address] [place], [address] ECRCL 90.92 ml/min Normal 50-250 [facility] Comment on above: Performed By: #### L 700.6800, L501.9100, L100.0100, L505.5000, L500.4050 ####[facility] [address] [place], [address] GAP 14 Normal 5-15 [facility] Comment on above: Performed By: #### L 700.6800, L501.9100, L100.0100, L505.5000, L500.4050 ####[facility] [address] [place], [address] GFR/1.73 sq M.predicted among non-blacks MDRD (S/P/Bld) [Vol rate/Area] 65 mL/min/{1.73_m2} Normal >60 [facility] Comment on above: Result Comment: mL/m in/1.73m2 CKD-EPI Creatinine Equation (2020) Performed By: #### L 700.6800, L501.9100, L100.0100, L505.5000, L500.4050 ####[facility] [address] [place], [address] Globulin (S) [Mass/Vol] 3.2 g/dL Normal 2.2-4.2 [facility] Comment on above: Performed By: #### L 700.6800, L501.9100, L100.0100, L505.5000, L500.4050 ####[facility] [address] [place], [address] Glucose [Mass/Vol] 245 mg/dL High 70-99 [facility] Comment on above: Performed By: #### L 700.6800, L501.9100, L100.0100, L505.5000, L500.4050 ####[facility] [address] [place], [address] Potassium [Moles/Vol] 4.5 mmol/L Normal 3.3-5.1 [facility] Comment on above: Result Comment: Hemo lysis present, Results??could be affected. ?? Performed By: #### L 700.6800, L501.9100, L100.0100, L505.5000, L500.4050 ####[facility] [address] [place], [address] Sodium [Moles/Vol] 137 mmol/L Normal 133-145 [facility] Comment on above: Performed By: #### L 700.6800, L501.9100, L100.0100, L505.5000, L500.4050 ####[facility] [address] [place], [address] T PROT 7.0 g/dL Normal 5.9-8.4 [facility] Comment on above: Performed By: #### L 700.6800, L501.9100, L100.0100, L505.5000, L500.4050 ####[facility] [address] [place], [address] Urea nitrogen [Mass/Vol] 16 mg/dL Normal 4-19 [facility] Comment on above: Performed By: #### L 700.6800, L501.9100, L100.0100, L505.5000, L500.4050 ####[facility] [address] [place], [address] Emergency Department Summary on 03-26-2025 Emergency Department Summary [facility] Medical Records Department [address] [place] [address] Emergency Department Summary 03/26/25 MR#: [id number] Acct: [id number] Name: CLIFTON CAGE Rep #: [id number] : 1980 44 From: Miguel Angel Parikh MD PCP: Dr. Kenneth Villanueva DO Status:DEP ER Location: ED ADDENDUM by Dr. Miguel Angel Parikh MD on 03/26/25 at 2216 Correction to the dictation, while patient has multiple allergies, she does not have an allergy to nitrofurantoin, but I do feel that Bactrim DS is a better choice in treating her UTI given her other allergies. 03/26/25 2216 Cosigner Signature (if applicable): cc: Dr. Kenneth Villanueva, * Signed HPI History of Present Illness Chief Complaint: [...] wall. Is not necessarily worse with standing. [facility] Medical History Near syncope Depression Anxiety Diabetes [...] Medications ???Medication ???Instructions ???Recorded ???Last Taken ???Type pantoprazole 40 mg tablet,delayed 40 mg PO DAILY GERD/reflux 02/02/23 05:00 History release PEP device #1 ea 10/08/22 Unknown Rx blood pressure monitor (Blood #1 ea 10/26/22 Unknown Rx Pressure Kit) clonidine 0.2 mg/24 hr weekly 1 patch topical QWEEK 06/13/24 Unk nown History transdermal patch potassium chloride 10 mEq 10 meq PO BID 06/13/24 Unknown His tory tablet,extended release spironolactone 50 mg tablet 50 mg PO QDAY 06/13/24 Unknown His tory tirzepatide 5 mg/0.5 mL mg subcut 06/13/24 Unknown History subcutaneous pen injector (Gregorio) dicyclomine 10 mg [...] BID #180 tabs 01/03/25 Un known Rx handicap Placcard #1 ea 01/19/25 Unknown Rx labetalol 400 mg tablet 400 mg PO BID #60 tabs 01/19/25 Un known Rx boric acid 600 mg vaginal 600 mg vaginal .QD 21 days #21 ea 02/07/25 Unknown Rx suppository (Azo Boric Acid) epinephrine 0.3 mg/0.3 mL 0.3 mg (0.3 mL) IM Q10M PRN PRN Unknown Rx injection, auto-injector (EpiPen) anaphylaxis #2 ea hydr (more content not included)... Normal [facility] Eosinophil percentageOrdered By: Miguel Angel Parikh on 03-26-2025 Eosinophils/100 WBC (Bld) 0.9 % 0-5 [facility] Erythrocyte distribution wid th ratioOrdered By: Miguel Angel Parikh on 03-26-2025 Erythrocyte distribution width (RBC) [Ratio] 13.2 % 11.6-14.6 [facility] Erythrocyte distribution wid th standard deviationOrdered By: Miguel Angel Parikh on 03-26-2025 Erythrocyte distribution width (RBC) [Ratio] 39.8 fl 35.1-43.9 [facility] Glomerular filtration rate ( GFR) estimation/1.73 sq m using serum, plasma, or whole bOrdered By: Miguel Angel Parikh on 03-26-2025 GFR/1.73 sq M.predicted among non-blacks MDRD (S/P/Bld) [Vol rate/Area] 65 mL/min/{1.73_m2} >60 [facility] Hematocrit Auto (Bld) [Volum e fraction]Ordered By: Miguel Angel Parikh on 03-26-2025 Hematocrit (Bld) [Volume fraction] 40.7 % 37-47 [facility] Hemoglobin measurementOrdere d By: Miguel Angel Parikh on 03-26-2025 Hemoglobin (Bld) [Mass/Vol] 13.8 g/dL 12.0-15.0 [facility] Hyaline casts LM.LPF (Urine sed) [#/Area]Ordered By: Miguel Angel Parikh on 03-26-2025 Hyaline casts (Urine sed) [#/Area] 5 /[LPF] 0-5 [facility] Immature granulocytes/100 WB C Auto (Bld)Ordered By: Miguel Angel Parikh on 03-26-2025 Immature granulocytes/100 WBC (Bld) 0.300 % 0.0-0.9 [facility] Ketones Test strip Ql (U)Ord ered By: Miguel Angel Parikh on 03-26-2025 Ketones Ql (U) 5 mg/dl High Negative [facility] L499.0042on 03-26-2025 Trop T High Sen Normal <=14 [facility] Comment on above: Result Comment: DEP FROM ED Performed By: #### L 499.0042 ####[facility] [address] [place], [address] L501.4021on 03-26-2025 Trop T High Sen < 6 Normal <=14 [facility] Comment on above: Performed By: #### L 501.4021 ####[facility] [address] [place], [address] MCV (mean corpuscular volume ) determinationOrdered By: Miguel Angel Parikh on 03-26-2025 MCV (RBC) [Entitic vol] 83.2 fL 81-99 [facility] Mean corpuscular hemoglobin (MCH) determinationOrdered By: Miguel Angel Parikh on 03-26-2025 MCH (RBC) [Entitic mass] 28.2 pg 27.0-32.0 [facility] Monocyte percentageOrdered B y: Miguel Angel Parikh on 03-26-2025 Monocytes/100 WBC (Bld) 6.7 % 0-10 [facility] Mucus LM Ql (Urine sed)Order ed By: Miguel Angel Parikh on 03-26-2025 Mucus Ql (Urine sed) 1+ /hpf [facility] Neutrophil percentageOrdered By: Miguel Angel Parikh on 03-26-2025 Neutrophils/100 WBC (Bld) 73.2 % High 47-70 [facility] Nitrite Test strip Ql (U)Ord ered By: Miguel Angel Parikh on 03-26-2025 Nitrite Ql (U) Negative Negative [facility] No Panel InformationOrdered By: Miguel Angel Parikh on 03-26-2025 Negative < 200 ng/mL [facility] 44 U/L High <32 [facility] Platelet countOrdered By: Dylan Parikh on 03-26-2025 Platelets (Bld) [#/Vol] 260 10*3/uL 150-450 [facility] Potassium measurement (mass/ volume)Ordered By: Miguel Angel Parikh on 03-26-2025 Potassium (Unsp spec) [Mass/Vol] 4.5 mmol/L 3.3-5.1 [facility] ,Serum,hCG Quali.on 03-26-2025 HCG, SERUM QUAL Negative Normal [facility] Comment on above: Performed By: #### L 700.6800, L501.9100, L100.0100, L505.5000, L500.4050 ####[facility] [address] [place], [address] Protein Test strip Ql (U)Ord ered By: Miguel Angel Parikh on 03-26-2025 Protein Ql (U) 100 mg/dl High Negative [facility] RBC Auto (Bld) [#/Vol]Ordere d By: Miguel Angel Parikh on 03-26-2025 RBC (Bld) [#/Vol] 4.89 10*6/uL 4.2-5.4 [facility] Screening urine fentanyl katharine surementOrdered By: Miguel Angel Parikh on 03-26-2025 fentaNYL Screen Ql (U) Negative [facility] Serum beta-hCG test, qualita tiveOrdered By: Miguel Angel Parikh on 03-26-2025 Beta HCG ( test) Ql Negative [facility] Serum creatinine measurement (mass/volume)Ordered By: Miguel Angel Parikh on 03-26-2025 Creatinine [Mass/Vol] 1.09 mg/dL 0.70-1.20 [facility] Serum globulin measurementOr dered By: Miguel Angel Parikh on 03-26-2025 Globulin (S) [Mass/Vol] 3.2 g/dL 2.2-4.2 [facility] Serum glucose measurement (m ass/volume)Ordered By: Miguel Angel Parikh on 03-26-2025 Glucose [Mass/Vol] 245 mg/dL High 70-99 [facility] Serum or plasma alanine giang otransferase (ALT) measurementOrdered By: Miguel Angel Parikh on 03-26-2025 ALT [Catalytic activity/Vol] 52 U/L High <35 [facility] Serum or plasma albumin rashi urement (mass/volume)Ordered By: Miguel Angel Parikh on 03-26-2025 Albumin [Mass/Vol] 3.8 g/dL 3.5-5.0 [facility] Serum or plasma albumin/glob ulin mass ratioOrdered By: Miguel Angel Parikh on 03-26-2025 Albumin/Globulin [Mass ratio] 1.2 {ratio} 0.9-2.4 [facility] Serum or plasma alkaline oksana sphatase measurementOrdered By: Miguel Angel Parikh on 03-26-2025 ALP [Catalytic activity/Vol] 84 U/L 35-104 [facility] Serum or plasma calcium rashi urement (mass/volume)Ordered By: Miguel Angel Parikh on 03-26-2025 Calcium [Mass/Vol] 8.9 mg/dL 7.6-11.0 [facility] Serum or plasma ethanol rashi urement (mass/volume)Ordered By: Miguel Angel Parikh on 03-26-2025 Ethanol [Mass/Vol] mg/dL <10.1 [facility] Serum or plasma urea nitroge n measurement (mass/volume)Ordered By: Miguel Angel Parikh on 03-26-2025 Urea nitrogen [Mass/Vol] 16 mg/dL 4-19 [facility] Sodium levelOrdered By: Miguel Angel Parikh on 03-26-2025 Sodium [Moles/Vol] 137 mmol/L 133-145 [facility] Squamous epithelial cells de tection in urine sediment by light microscopyOrdered By: Miguel Angel Parikh on 03-26-2025 Epithelial cells.squamous LM Ql (Urine sed) 5-10 SEEN /hpf 5-10 [facility] Total proteinOrdered By: Marlen Parikh on 03-26-2025 Protein [Mass/Vol] 7.0 g/dL 5.9-8.4 [facility] Troponin T.cardiac [Mass/vol ume] in Serum or Plasma by High sensitivity methodOrdered By: Miguel Angel Parikh on 03-26-2025 Troponin T.cardiac High sensitivity method [Mass/Vol] < 6 ng/L <14 [facility] Urinalysis, Completeon 03-26 CA OX CRYSTAL 1+ /hpf Normal [facility] Comment on above: Order Comment: CLEAN CATCH Performed By: #### L 400.0001 ####[facility] [address] [place], [address] CAST,HYALINE 5-10 SEEN Normal 0-5 [facility] Comment on above: Order Comment: CLEAN CATCH Performed By: #### L 400.0001 ####[facility] [address] [place], [address] Mucus Ql (Urine sed) 1+ /hpf Normal [facility] Comment on above: Order Comment: CLEAN CATCH Performed By: #### L 400.0001 ####[facility] [address] [place], [address] BACTERIA 2+ /hpf Normal None Seen [facility] Comment on above: Order Comment: CLEAN CATCH Performed By: #### L 400.0001 ####[facility] [address] [place], [address] Clarity (U) Clear Normal Clear [facility] Comment on above: Order Comment: CLEAN CATCH Performed By: #### L 400.0001 ####[facility] [address] [place], [address] Color (U) Yellow Normal Yellow [facility] Comment on above: Order Comment: CLEAN CATCH Performed By: #### L 400.0001 ####[facility] [address] [place], [address] EPI,SQUAMOUS 5-10 SEEN Normal 5-10 [facility] Comment on above: Order Comment: CLEAN CATCH Performed By: #### L 400.0001 ####[facility] [address] [place], [address] WBC >100 SEEN Normal 0-5 [facility] Comment on above: Order Comment: CLEAN CATCH Performed By: #### L 400.0001 ####[facility] [address] [place] [id number] BILIRUBIN URINE Negative Normal Negative [facility] Comment on above: Order Comment: CLEAN CATCH Performed By: #### L 400.0001 ####[facility] [address] [facility] [address] GLUCOSE, UR Normal Normal Normal [facility] Comment on above: Order Comment: CLEAN CATCH Performed By: #### L 400.0001 ####[facility] [address] [place] [address] KETONE UR 5 mg/dl Abnormal Negative [facility] Comment on above: Order Comment: CLEAN CATCH Performed By: #### L 400.0001 ####[facility] [address] [place] [address] LEUK ESTERASE 500 /ul Abnormal Negative [facility] Comment on above: Order Comment: CLEAN CATCH Performed By: #### L 400.0001 ####[facility] [address] [place] [address] Nitrite Ql (U) Negative Normal Negative [facility] Comment on above: Order Comment: CLEAN CATCH Performed By: #### L 400.0001 ####[facility] [address] [place] [address] OCCULT BLOOD-UR Negative Normal Negative [facility] Comment on above: Order Comment: CLEAN CATCH Performed By: #### L 400.0001 ####[facility] [address] [place], [address] pH UR 5.0 Normal 5.0 - 8.0 [facility] Comment on above: Order Comment: CLEAN CATCH Performed By: #### L 400.0001 ####[facility] [address] [place] [id number] PROT DIPSTX 100 mg/dl Abnormal Negative [facility] Comment on above: Order Comment: CLEAN CATCH Performed By: #### L 400.0001 ####[facility] [address] [place], [address] SP.GR. DIPSTX 1.025 Normal 1.002-1.030 [facility] Comment on above: Order Comment: CLEAN CATCH Performed By: #### L 400.0001 ####[facility] [address] [place] [id number] UROBILI Normal Normal Normal [facility] Comment on above: Order Comment: CLEAN CATCH Performed By: #### L 400.0001 ####[facility] [address] [place], [address] RBC 0 SEEN Normal 0-5 [facility] Comment on above: Order Comment: CLEAN CATCH Performed By: #### L 400.0001 ####[facility] [address] [place] [address] Urine Drug Screen (VISTA)on 03-26-2025 AMPHETAMINES Negative Normal <1000 ng/mL [facility] Comment on above: Performed By: #### L 700.6800, L501.9100, L100.0100, L505.5000, L500.4050 ####[facility] [address] [place] [address] BARBITIURATES Negative Normal < 200 ng/mL [facility] Comment on above: Performed By: #### L 700.6800, L501.9100, L100.0100, L505.5000, L500.4050 ####[facility] [address] [place], [address] BENZODIAZIPINE Negative Normal < 200 ng/mL [facility] Comment on above: Performed By: #### L 700.6800, L501.9100, L100.0100, L505.5000, L500.4050 ####[facility] [address] [place], [address] BUP Ur Drug Scr Negative Normal < 200 ng/mL [facility] Comment on above: Performed By: #### L 700.6800, L501.9100, L100.0100, L505.5000, L500.4050 ####[facility] [address] [place], [address] COCAINE Negative Normal < 300 ng/mL [facility] Comment on above: Performed By: #### L 700.6800, L501.9100, L100.0100, L505.5000, L500.4050 ####[facility] [address] [place], [address] Fentanyl Negative Normal [facility] Comment on above: Performed By: #### L 700.6800, L501.9100, L100.0100, L505.5000, L500.4050 ####[facility] [address] [place], [address] METHADONE Negative Normal < 300 ng/mL [facility] Comment on above: Performed By: #### L 700.6800, L501.9100, L100.0100, L505.5000, L500.4050 ####[facility] [address] [place], [address] OPIATES Negative Normal < 300 ng/mL [facility] Comment on above: Performed By: #### L 700.6800, L501.9100, L100.0100, L505.5000, L500.4050 ####[facility] [address] [place], [address] OXYCODONE Negative Normal < 100 ng/mL [facility] Comment on above: Performed By: #### L 700.6800, L501.9100, L100.0100, L505.5000, L500.4050 ####[facility] [address] [place], [address] PCP Negative Normal < 25 ng/mL [facility] Comment on above: Performed By: #### L 700.6800, L501.9100, L100.0100, L505.5000, L500.4050 ####[facility] [address] [place], [address] THC Negative Normal < 50 ng/mL [facility] Comment on above: Performed By: #### L 700.6800, L501.9100, L100.0100, L505.5000, L500.4050 ####[facility] [address] [place], [address] Urine clarityOrdered By: Marlen Parikh on 03-26-2025 Clarity (U) Clear Clear [facility] Urine color determinationOrd ered By: Miguel Angel Parkih on 03-26-2025 Color (U) Yellow Yellow [facility] Urine glucose detectionOrder ed By: Miguel Angel Parikh on 03-26-2025 Glucose Ql (U) Normal mg/dl Normal [facility] Urine leukocyte esterase det ection by dipstickOrdered By: Miguel Angel Parikh on 03-26-2025 Leukocyte esterase Test strip Ql (U) 500 /ul High Negative [facility] Urine pHOrdered By: Miguel Angel landrum on 03-26-2025 pH (U) 5.0 [pH] 5.0 - 8.0 [facility] Urine phencyclidine (PCP) de tectionOrdered By: Miguel Angel Parikh on 03-26-2025 Phencyclidine Ql (U) Negative < 25 ng/mL [facility] Urine sediment bacteria coun t by microscopy (number/high power field)Ordered By: Miguel Angel Parikh on 03-26-2025 Bacteria LM.HPF (Urine sed) [#/Area] 2 /[HPF] None Seen [facility] Urine specific gravity measu rementOrdered By: Miguel Angel Parikh on 03-26-2025 Specific gravity (U) [Rel density] 1.025 1.002-1.030 [facility] Urine urobilinogen measureme ntOrdered By: Miguel Angel Parikh on 03-26-2025 Urobilinogen Ql (U) Normal mg/dl Normal [facility] White blood cell (WBC) count Ordered By: Miguel Angel Parikh on 03-26-2025 WBC (Bld) [#/Vol] 11.6 10*3/uL High 4.4-11.0 [facility] White blood cell countOrdere d By: Miguel Angel Ahnnatacha on 03-26-2025 White blood cell count >100 SEEN /hpf 0-5 [facility] Pulmonary Visit Reporton Pulmonary Visit Report [facility] [address] [place] [address] OFFICE VISIT Date of Service: 03/08/25 MR#: [id number] Acct: [id number] Name: CLIFTON CAGE Rep #: [id number] : 1980 Provider: OSMANY Lee Age/Sex: 44/F Location: [facility] [place] Status: Signed Assessment and Plan Assessment and [...] Additional Comments: This note was generated with [employer] dictation software. It may contain incorrect words, [...] nasal canula (more content not included)... Normal [facility] PAP IG HPV APTIMA 16/18,45on 02-13-2025 ADEQ Comment Normal . [facility] Comment on above: Order Comment: Speci men Comment: [id number] Specimen Comment: No. of containers..01 ThinPrep Vial Result Comment: Sati sfactory for evaluation. Endocervical and/or squamous metaplastic cells (endocervical component) are present. Areas of partially obscuring inflammatory exudate are present. Performed By: #### L 7000.1800, L7400.0280 #### [facility] [address] [place], [address] COMM . Normal . [facility] Comment on above: Order Comment: Speci men Comment: [id number] Specimen Comment: No. of containers..01 ThinPrep Vial Performed By: #### L 7000.1800, L7400.0280 #### [facility] [address] [place], [place], [address] COMMENT Comment Normal . [facility] Comment on above: Order Comment: Speci men Comment: [id number] Specimen Comment: No. of containers..01 ThinPrep Vial Result Comment: This liquid based ThinPrep(R) pap test was screened with the use of an image guided system. Performed By: #### L 7000.1800, L7400.0280 #### [facility] [address] [place], [place], [address] DIAG Comment Normal . [facility] Comment on above: Order Comment: Speci men Comment: [id number] Specimen Comment: No. of containers..01 ThinPrep Vial Result Comment: NEGA TIVE FOR INTRAEPITHELIAL LESION OR MALIGNANCY. REACTIVE CELLULAR CHANGES AND/OR REPAIR ARE PRESENT. TRICHOMONAS VAGINALIS IS PRESENT. Performed By: #### L 7000.1800, L7400.0280 #### [facility] [address] [place], [place], [address] HPV APTIMA, HR Negative Normal Negative [facility] Comment on above: Order Comment: Speci men Comment: [id number] Specimen Comment: No. of containers..01 ThinPrep Vial Result Comment: This nucleic acid amplification test detects fourteen high- risk HPV types (16,18,31,33,35,39,45,51,52,56,58,59,66,68) without differentiation. Performed By: #### L 7000.1800, L7400.0280 #### [facility] [address] [place], [place], [address] HPV Maureen Rfx Comment Normal . [facility] Comment on above: Order Comment: Speci men Comment: [id number] Specimen Comment: No. of containers..01 ThinPrep Vial Result Comment: Crit eria not met, HPV Genotype not performed. Performed at: - [address] [id number] Histopathology Technician: Lizette Marin MD, Phone: [phone] Performed at: = - [address] [id number] Histopathology Technician: Lizette Marin MD, Phone: [phone] Performed By: #### L 7000.1800, L7400.0280 #### [facility] [address] [place], [place], [address] PAPSMR Comment Normal . [facility] Comment on above: Order Comment: Speci men Comment: [id number] Specimen Comment: No. of containers..01 ThinPrep Vial [...] Performed By: #### L 7000.1800, L7400.0280 #### [facility] [address] [place], [place], [address] Path.prov.IDC-9 Comment Normal . [facility] Comment on above: Order Comment: Speci men Comment: [id number] Specimen Comment: No. of containers..01 ThinPrep Vial Result Comment: R87. 5 Performed By: #### L 7000.1800, L7400.0280 #### [facility] [address] [place], [address] PERFORM Comment Normal . [facility] Comment on above: Order Comment: Speci men Comment: [id number] Specimen Comment: No. of containers..01 ThinPrep Vial Result Comment: Aziza Borges, Programmer Business (ASCP) Performed By: #### L 7000.1800, L7400.0280 #### [facility] [address] [place], [address] SIGN Comment Normal . [facility] Comment on above: Order Comment: Speci men Comment: [id number] Specimen Comment: No. of containers..01 ThinPrep Vial Result Comment: Madison Michele MD, Pathologist Performed By: #### L 7000.1800, L7400.0280 #### [facility] [address] [place], [address] Chlamydia/GC GURPREET aptimaon CHLAMY,NUC ACID Negative Normal Negative [facility] Comment on above: Performed By: #### L 7000.1800, L7400.0280 #### [facility] [address] [place], [place], [address] GC BY NUC ACID Negative Normal Negative [facility] Comment on above: Result Comment: Perf ormed at: =G - [facility] [address] [id number] Histopathology Technician: Lizette Marin MD, Phone: [phone] Performed By: #### L 7000.1800, L7400.0280 #### [facility] [address] [place], [place], [address] 12 Lead EKGon 02-07-2025 12 Lead EKG [facility] [address] [place] [address] 12 Lead EKG 02/07/25 1638 MR#: [id number] Acct: [id number] Name: CLIFTON CAGE Rep #: [id number] : 1980 44 From: Daniel Obrien MD [...] enlargement Abnormal ECG Confirmed by Daniel Obrien ([id number]), online content editor ALYSIA HEBERT ([id number]) on 02/09/2025 12:13:17 PM Referred By: Lisa Bailey Confirmed By: Daniel Obrien 02/09/25 1213 Date Daniel Obrien MD CC: Dr. Kenneth Villanueva DO; Dr. Lisa Bailey DO Signed Normal [facility] Chest 1 View (Portable)on Chest 1 View (Portable) [facility] Imaging Services [address] [place] [address] Chest 1 View (Portable) MR#: [id number] Acct: [id number] Name: CLIFTON CAGE Rep #: [id number] : 1980 F 44 From: Best dick MD PCP: Dr. Kenneth Villanueva DO Status: REG ER Study: Chest 1 View (Portable) Date of Exam: 02/07/25 Exam# [id number] Ordering Dr: Lisa Bailey DO PROCEDURE: CHEST [...] CC: Dr. Kenneth Villanueva DO; Dr. Lisa Bialey DO Shoe Turner: Signed Normal [facility] Emergency Department Summary on 02-07-2025 Emergency Department Summary [facility] Medical Records Department [address] [place] [address] Emergency Department Summary 02/07/25 MR#: [id number] Acct: [id number] Name: CLIFTON CAGE Rep #: [id number] : 1980 44 From: Lisa Bailey DO [...] the right side. She denies recent illness. [facility] Medical History Depression Anxiety Diabetes Bladder disease [...] subcut 06/13/24 Unknown History subcutaneous pen injector (Mounvenuro) dicyclomine 10 mg capsule 10 mg PO [...] mL 0. (more content not included)... Normal [facility] Cervical or vaginal specimen microscopic examination by liquid based cytology (reportOrdered By: Felicia Gonzalez on 02-06-2025 Cytology report Cyto stain.thin prep Doc (Cvx/Vag) Comment . [facility] Comment on above: Criteria not met, HP V Genotype not performed.Performed at: - [facility] [id number] Director: Lizette Marin MD, Phone: [phone] at: = - [facility] [id number] Director: Lizette Marin MD, Phone: [phone] Cervical or vagninal specime n microscopic examination by cytology stain (reported asOrdered By: Feliica Gonzalez on 02-06-2025 Cytology report Cyto stain Doc (Cvx/Vag) Comment . [facility] Comment on above: The Pap smear is [...] rRNA GURPREET+probe Ql (Unsp spec) Negative Negative [facility] Detection in cervical specim en of any of human papilloma virus (HPV) 16, 18, 31, 33,Ordered By: Felicia Gonzalez on 02-06-2025 HPV 16+18+31+33+35+39+45+5 1+52+56+58+59+66+68 DNA Probe+sig amp Ql (Cvx) Negative Negative [facility] Comment on above: This nucleic acid am plification test detects fourteen high- risk HPV types (16,18,31,33,35,39,45,51,52,56,58,59,66,68)without differentiation. Laboratory - CytologyOrdered By: Felicia Gonzalez on 02-06-2025 Programmer Business Cyto stain Nom (Cvx/Vag) [ID] Comment . [facility] Comment on above: Aneesh Saunders tologist (ASCP) Pathologist Cyto stain Nom (Cvx/Vag) [ID] Comment . [facility] Comment on above: Eunice Michele MD, Pa thologist Laboratory - Miscellaneous t estsOrdered By: Felicia Gonzalez on 02-06-2025 Service comment (Unsp spec) [Interp] . . [facility] Neisseria gonorrhoeae nuclei c acid detection by amplified probe techniqueOrdered By: Felicia Gonzalez on 02-06-2025 N. gonorrhoeae DNA GURPREET+probe Ql (Unsp spec) Negative Negative [facility] Comment on above: Performed at: [address] [id number] Director: Lizette Marin MD, Phone: [phone] No Panel InformationOrdered By: Felicia Gonzalez on 02-06-2025 Pap Smear Specimen Adequacy Comment . [facility] Comment on above: Satisfactory for tomás luation. Endocervical and/or squamous metaplasticcells (endocervical component) are present.Areas of partially obscuring inflammatory exudate are present. Pathology report final diagnosis Narrative Comment . [facility] Comment on above: R87.5 Comment . [facility] POC Trichomonas (Rapid) Positive [facility] Positive [facility] Credit And Loan Collections Supervisor Office Visit Reporton 02-06-2025 Credit And Loan Collections Supervisor Office Visit Report [facility] [address], [address] [place] [address] OFFICE VISIT Date of Service: 02/06/25 MR#: [id number] Acct: [id number] Name: CLIFTON CAGE Rep #: [id number] : 1980 Provider: OSMANY cervantes Age/Sex: 44/F Location: [facility] Status: Signed Intake Vital Signs 12/13/24 08:03 01/19/25 12:30 02/06/25 11:19 02/06/25 11:20 Height 5 ft 8 in 5 ft 8 in 5 ft 8 in 5 ft 8 in Weight: 264 lb 2 oz BMI 40.1 BP 163/86 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 Normal [facility] 6 Minute Walk Teston 01-26- 025 6 Minute Walk Test y [facility] Pulmonary Services/Neurology [address] [place] [address] MR#: [id number] Acct: [id number] Name: CLIFTON CAGE Rep #: [id number] : 1980 44 From: Dominick Mcclendon DO Referring Dr: Flori Lee AB INITIO ETL DEVELOPER AB INITIO ETL DEVELOPER-C Status: DEP CLI Location: PSN Date: Sex: [...] Dominick Mcclendon DO CC: Date Dictated: 01/26/25 122 Date Transcribed: 01/26/251220 Shoe Turner: Dr. 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 Kianna called in the referral. Person calling: caregiver: Anisha Return call to: patient Medical Records/Insurance Card scanned into [employer]: No Comments: Kianna Desir NP's office isreferring the patient to be seen in [facility] for Resistent HTN office - [phone] Fax - [phone] Kianna would like to be notified to send records. Allergies As of Date: 01/24/2025 Noted Allergy Reaction NABUMETONE 03/29/2006 7 - Swelling Comments: Throat swelling, shortness of breath. She can take ibuprofen. PENICILLINS 06/29/2005 7 - Swelling 12 - Shortness of Breath NORCO (HYDROCODONE-ACETAMINOPHE N) 01/17/2016 2 - Rash 9 - Itching [...] tablets by mouth once daily. - Insulin [place], Disposable, (BD ULTRAFINE III MINI PEN) 31 [...] nebulizer solution (more content not included)... Normal [facility] Cardiology Visit Reporton Cardiology Visit Report [facility] [address] [facility] [facility] [place], [place] [address] OFFICE VISIT Date of Service: 01/19/25 MR#: [id number] Acct: [id number] Name: CLIFTON CAGE Rep #: [id number] : 1980 Provider: CASSIDY Kohler Age/Sex: 44/F Location[place] [facility] Status: Signed HPI HPI History of Present [...] (%) 93 Intake Visit Reasons: 4 M 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 Is patient in pain?: No Allergies amoxicillin Allergy (Severe, Verified 01/19/25 09:44) Anaphylaxis nabumetone Allergy (Unknown, Verified 01/19/25 09:44) Unknown hydrocodone bitartrate (From [place]) Allergy (Verified 01/19/25 09:44) Itching Penicillins Allergy [...] you fallen in the past year?: No [facility] Medical History Depression Anxiety Diabetes Bladder disease [...] of hiatal (more content not included)... Normal [facility] Bilirubin directOrdered By: Kenneth Villanueva on 01-02-2025 Bilirubin.direct [Mass/Vol] 0.23 mg/dL 0.00-0.30 [facility] Bilirubin, totalOrdered By: Kenneth Villanueva on 01-02-2025 Bilirubin [Mass/Vol] 0.60 mg/dL 0.00-1.30 [facility] Calculated very low density lipoprotein (VLDL) cholesterol measurementOrdered By: Kenneth Villanueva on 01-02-2025 Calculated very low density lipoprotein (VLDL) cholesterol measurement 30 mg/dL 5-40 [facility] VLDL Cholesterol 30 mg/dL 5-40 [facility] LDL calc ser/plasOrdered By: Kenneth Villanueva on 01-02-2025 Cholesterol in LDL [Mass/Vol] 136 mg/dL [facility] Comment on above: Ctfjfvucol=404-083 m g/dL & Higher Dhji=234 mg/dL or greater LDL Cholesterol, Calculated 136 mg/dL [facility] Comment on above: Mrjrjewosp=495-300 m g/dL & Higher Mtmr=565 mg/dL or greater Laboratory - Chemistry and C hemistry - challengeOrdered By: Kenneth Villanueva on 01-02-2025 AST [Catalytic activity/Vol] 37 U/L High <32 [facility] Lipid Profileon 01-02-2025 CHOL:HDL 5.18 Normal [facility] Comment on above: Performed By: #### L 500.4100, L500.3400 ####[facility] [address] [place], [address] Cholesterol [Mass/Vol] 205 mg/dL High <=200 [facility] Comment on above: Result Comment: Chol esterol level, Desirable <200 mg/dL Borderline high cholesterol 200-239 mg/dL High cholesterol >=240 mg/dL Recommendations of the NCEP Adult Treatment Panel for the following risk-cutoff thresholds for the [place] population. Performed By: #### L 500.4100, L500.3400 ####[facility] [address] [place], [address] Cholesterol in HDL [Mass/Vol] 40 mg/dL Normal [facility] Comment on above: Result Comment: Niesha onal Cholesterol Education Program (NCEP) guidelines: <40 mg/dL: Low HDL-cholesterol (major risk factor for CHD) >= 60 mg/dL: High HDL-cholesterol (negative risk factor for CHD) HDL-cholesterol is affected by a number of factors, e.g. smoking, exercise, hormones, sex and age. Performed By: #### L 500.4100, L500.3400 ####[facility] [address] [place], [address] Cholesterol in LDL [Mass/Vol] 136 mg/dL Normal [facility] Comment on above: Result Comment: Bord arzybo=364-950 mg/dL Higher Snzv=631 mg/dL or greater Performed By: #### L 500.4100, L500.3400 ####[facility] [address] [place], [address] Cholesterol in VLDL [Mass/Vol] 30 mg/dL Normal 5-40 [facility] Comment on above: Performed By: #### L 500.4100, L500.3400 ####[facility] [address] [place], [address] Triglyceride [Mass/Vol] 149 mg/dL Normal [facility] Comment on above: Result Comment: The drugs N-Acetylcysteine and Metamizole may falsely depress this assay. Normal range: <150 mg/dL Borderline High: 150-199 mg/dL High: 200-499 mg/dL Very High: >500 mg/dL Performed By: #### L 500.4100, L500.3400 ####[facility] [address] [place], [address] Liver Profileon 01-02-2025 Albumin [Mass/Vol] 4.3 g/dL Normal 3.5-5.0 [facility] Comment on above: Performed By: #### L 500.4100, L500.3400 ####[facility] [address] [place], [address] ALK PHOS 89 U/L Normal 35-104 [facility] Comment on above: Performed By: #### L 500.4100, L500.3400 ####[facility] [address] [place], [address] ALT [Catalytic activity/Vol] 48 U/L High <=34 [facility] Comment on above: Performed By: #### L 500.4100, L500.3400 ####[facility] [address] [place], [address] AST [Catalytic activity/Vol] 37 U/L High <=31 [facility] Comment on above: Performed By: #### L 500.4100, L500.3400 ####[facility] [address] [place], [address] Bilirubin [Mass/Vol] 0.60 mg/dL Normal 0.00-1.30 [facility] Comment on above: Performed By: #### L 500.4100, L500.3400 ####[facility] [address] [place], [address] Bilirubin.direct [Mass/Vol] 0.23 mg/dL Normal 0.00-0.30 [facility] Comment on above: Performed By: #### L 500.4100, L500.3400 ####[facility] [address] [place], [address] Globulin (S) [Mass/Vol] 3.9 g/dL Normal 2.2-4.2 [facility] Comment on above: Performed By: #### L 500.4100, L500.3400 ####[facility] [address] [place], [address] T PROT 8.2 g/dL Normal 5.9-8.4 [facility] Comment on above: Performed By: #### L 500.4100, L500.3400 ####[facility] [address] [place], [address] No Panel InformationOrdered By: Kenneth Villanueva on 01-02-2025 37 U/L High <32 [facility] Screening total cholesterol/ high density lipoprotein (HDL) cholesterol ratioOrdered By: Kenneth Villanueva on 01-02-2025 Cholesterol.total/Chol esterol in HDL [Mass ratio] 5.18 {ratio} [facility] Serum globulin measurementOr dered By: Kenneth Villanueva on 01-02-2025 Globulin (S) [Mass/Vol] 3.9 g/dL 2.2-4.2 [facility] Serum or plasma alanine giang otransferase (ALT) measurementOrdered By: Kenneth Villanueva on 01-02-2025 ALT [Catalytic activity/Vol] 48 U/L High <35 [facility] Serum or plasma albumin rashi urement (mass/volume)Ordered By: Kenneth Villanueva on 01-02-2025 Albumin [Mass/Vol] 4.3 g/dL 3.5-5.0 [facility] Serum or plasma alkaline oksana sphatase measurementOrdered By: Kenneth Villanueva on 01-02-2025 ALP [Catalytic activity/Vol] 89 U/L 35-104 [facility] Serum or plasma cholesterol in HDL measurement (mass/volume)Ordered By: Kenneth Villanueva on 01-02-2025 Cholesterol in HDL [Mass/Vol] 40 mg/dL >40 [facility] Comment on above: National Cholesterol Education Program (NCEP) guidelines:<40 mg/dL: Low HDL-cholesterol (major risk factor for CHD)>= 60 mg/dL: High HDL-cholesterol (negative risk factor for CHD)HDL-cholesterol is affected by a number of factors, e.g. smoking, exercise, hormones, sex and age. Serum or plasma cholesterol measurement (mass/volume)Ordered By: Kenneth Villanueva on 01-02-2025 Cholesterol [Mass/Vol] 205 mg/dL High <201 [facility] Comment on above: Cholesterol level, D esirable <200 mg/dLBorderline high cholesterol 200-239 mg/dLHigh cholesterol >=240 mg/dLRecommendations of the NCEP Adult Treatment Panel for the following risk-cutoff thresholds for the [place] population. Total proteinOrdered By: Tracey Villanueva on 01-02-2025 Protein [Mass/Vol] 8.2 g/dL 5.9-8.4 [facility] Triglycerides measurementOrd ered By: Kenneth Villanueva on 01-02-2025 Triglyceride [Mass/Vol] 149 mg/dL <199 [facility] Comment on above: The drugs N-Acetylcy steine and Metamizole may falsely depress this assay. Normal range: <150 mg/dLBorderline High: 150-199 mg/dLHigh: 200-499 mg/dLVery High: >500 mg/dL Pulmonary Visit Reporton Pulmonary Visit Report [facility] Pul[facility] of [address] [place] [address] OFFICE VISIT Date of Service: 12/13/24 MR#: [id number] Acct: [id number] Name: CLIFTON CAGE Rep #: [id number] : 1980 Provider: OSMANY Lee Age/Sex: 44/F Location[place] [facility] Status: Signed Assessment and Plan Assessment and [...] lung Plan Details Follow Up: 3 Months ([facility]) HPI HPI Comments Details: This patient presents [...] 06/13/24 07:43 (more content not included)... Normal [facility] Blood urea nitrogen (BUN)/cr eatinine ratioOrdered By: Evon Ryan on 10-11-2024 Urea nitrogen/Creatinine [Mass ratio] 8.8 mg/mg Low 10-20 [facility] Carbon dioxide measurementOr dered By: Evon Ryan on 10-11-2024 CO2 [Moles/Vol] 31.0 mmol/L 21.0-32.0 [facility] Chloride measurementOrdered By: Evon Ryan on 10-11-2024 Chloride [Moles/Vol] 103 mmol/L 98-107 [facility] Estimated glomerular filtrat ion rate (GFR) AmericanOrdered By: Evon Ryan on 10-11-2024 Estimated GFR (MDRD) Amer 88 mL/min >60 [facility] Comment on above: GFR Calc Glomerular filtration rate ( GFR) estimationOrdered By: Evon Ryan on 10-11-2024 Estimated GFR (MDRD) Non-Af Amer 73 mL/min >60 [facility] Comment on above: Non- GFR Calc GFR/1.73 sq M.predicted among non-blacks MDRD (S/P/Bld) [Vol rate/Area] 73 mL/min/{1.73_m2} >60 [facility] Comment on above: Non- GFR Calc Glucose measurementOrdered B y: Evon Ryan on 10-11-2024 Glucose [Mass/Vol] 130 mg/dL High 74-106 [facility] Comment on above: Fasting Glucose resu lt greater than or equal to 126 mg/dL suggests DIABETES MELLITUS per A.D.A. criteria. Phosphorus measurementOrdere d By: Evon Ryan on 10-11-2024 Phosphorus Level 1.6 mg/dL Low 2.5-4.9 [facility] Potassium measurementOrdered By: Evon Ryan on 10-11-2024 Potassium [Moles/Vol] 3.5 mmol/L 3.5-5.1 [facility] Protein+Creatinine Ratio,Uri neon 10-11-2024 PROT:CRE RATIO 533 mg/g CRE High 0-200 [facility] Comment on above: Performed By: #### L 501.0900, L500.3600 #### [facility] [address] [place], [address] Protein (U) [Mass/Vol] 146.1 mg/dL High <11.9 [facility] Comment on above: Performed By: #### L 501.0900, L500.3600 #### [facility] [address] [place], [address] UR CREAT 274.00 mg/dL Normal NO RANGE EST. [facility] Comment on above: Performed By: #### L 501.0900, L500.3600 #### [facility] [address] [place], [address] Protein/Creatinine (U) [Mass ratio]Ordered By: Evon Ryan on 10-11-2024 Urine Protein/Creatinine Ratio 533 mg/g CRE High 0-200 [facility] Random urine protein measure mentOrdered By: Evon Ryan on 10-11-2024 Protein (U) [Mass/Vol] 146.1 mg/dL High 0.0-11.8 [facility] Renal Profileon 10-11-2024 Albumin [Mass/Vol] 3.4 g/dL Normal 3.2-5.0 [facility] Comment on above: Performed By: #### L 501.0900, L500.3600 #### [facility] [address] [place], [address] BUN/CRE 8.8 RATIO Low 10-20 [facility] Comment on above: Performed By: #### L 501.0900, L500.3600 #### [facility] [address] [place], [address] CA,Total 8.6 mg/dL Normal 8.5-10.1 [facility] Comment on above: Performed By: #### L 501.0900, L500.3600 #### [facility] [address] [place], [address] Chloride [Moles/Vol] 103 mmol/L Normal 98-107 [facility] Comment on above: Performed By: #### L 501.0900, L500.3600 #### [facility] [address] [place], [address] CO2 [Moles/Vol] 31.0 mmol/L Normal 21.0-32.0 [facility] Comment on above: Performed By: #### L 501.0900, L500.3600 #### [facility] [address] [place], [address] Creatinine [Mass/Vol] 0.90 mg/dL Normal 0.55-1.02 [facility] Comment on above: Result Comment: The validity of the calculated GFR GFRAA in patients over 70 years has not been determined. Clinical correlation is essential. Performed By: #### L 501.0900, L500.3600 #### [facility] [address] [place], [address] EST GFR - AA 88 mL/min Normal >60 [facility] Comment on above: Result Comment: Afri can [place]uneian GFR Calc Performed By: #### L 501.0900, L500.3600 #### [facility] [address], [address] GFR/1.73 sq M.predicted among non-blacks MDRD (S/P/Bld) [Vol rate/Area] 73 mL/min/{1.73_m2} Normal >60 [facility] Comment on above: Result Comment: Non- GFR Calc Performed By: #### L 501.0900, L500.3600 #### [facility] [address] [place], [address] Glucose [Mass/Vol] 130 mg/dL High 74-106 [facility] Comment on above: Result Comment: Fast ing Glucose result greater than or equal to 126 mg/dL suggests DIABETES MELLITUS per A.D.A. criteria. Performed By: #### L 501.0900, L500.3600 #### [facility] [address] [place], [address] Phosphate [Mass/Vol] 1.6 mg/dL Low 2.5-4.9 [facility] Comment on above: Performed By: #### L 501.0900, L500.3600 #### [facility] [address] [place], [address] Potassium [Moles/Vol] 3.5 mmol/L Normal 3.5-5.1 [facility] Comment on above: Performed By: #### L 501.0900, L500.3600 #### [facility] [address] [place], [address] Sodium [Moles/Vol] 139 mmol/L Normal 136-145 [facility] Comment on above: Performed By: #### L 501.0900, L500.3600 #### [facility] [address] [place], [address] Urea nitrogen [Mass/Vol] 8 mg/dL Normal 7-18 [facility] Comment on above: Performed By: #### L 501.0900, L500.3600 #### [facility] [address] [place], [address] Serum or plasma albumin rashi urement (mass/volume)Ordered By: Evon Ryan on 10-11-2024 Albumin [Mass/Vol] 3.4 g/dL 3.2-5.0 [facility] Serum or plasma calcium rashi urement (mass/volume)Ordered By: Evon Ryan on 10-11-2024 Calcium [Mass/Vol] 8.6 mg/dL 8.5-10.1 [facility] Serum or plasma creatinine m easurement (mass/volume)Ordered By: Evon Ryan on 10-11-2024 Creatinine [Mass/Vol] 0.90 mg/dL 0.55-1.02 [facility] Comment on above: The validity of the calculated GFR & GFRAA in patients over 70 years has not been determined. Clinical correlation is essential. Serum or plasma urea nitroge n measurement (mass/volume)Ordered By: Evon Ryan on 10-11-2024 Urea nitrogen [Mass/Vol] 8 mg/dL 7-18 [facility] Sodium levelOrdered By: Larry Ryan on 10-11-2024 Sodium [Moles/Vol] 139 mmol/L 136-145 [facility] Urine creatinine measurement (mass/volume)Ordered By: Evon Ryan on 10-11-2024 Creatinine (U) [Mass/Vol] 274.00 mg/dL NO RANGE EST. [facility] Urine protein/creatinine mas s ratioOrdered By: Evon Ryan on 10-11-2024 Protein/Creatinine (U) [Mass ratio] 533 mg/g CRE High 0-200 [facility] Cardiology Visit Reporton Cardiology Visit Report [facility] [address] [place] [address]. [address] [place] [address] OFFICE VISIT Date of Service: 07/18/24 MR#: [id number] Acct: [id number] Name: CLIFTON CAGE Rep #: [id number] : 1980 Provider: Dr. Ketan Nayak MD Age/Sex: 43/F Location[place] [facility] Status: Signed HPI HPI History of Present [...] Monitor Intake Visit Reasons: 1 Y FU 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 Accompanied by: Is patient in pain?: No Allergies amoxicillin Allergy (Severe, Verified 07/18/24 09:43) Anaphylaxis nabumetone Allergy (Unknown, Verified 07/18/24 09:43) Unknown hydrocodone bitartrate (From [place]) Allergy (Verified 07/18/24 09:43) Itching Penicillins Allergy [...] subcut 06/13/24 07/18/24 History subcutaneous pen injector (Ugounvenuro) amlodipine 10 mg tablet 10 mg PO [...] you fallen in the past year?: [facility] Depression Anxiety Diabetes Bladder disease Low iron Fatty liver Easy bruising Neuropathy Injury of back Migraine headache Seizures Dietary restriction Bowel obstruction Chronic constipation Gastric reflux Central sleep apnea treated with adaptive servo-ventilation (ASV) device History of Holter monitoring History of echocardiogram History of stress test Failure to thrive Hypertension Cardiology follow-up encounter On home oxyge (more content not included)... Normal [facility] CNOVon 06-20-2024 CNOV Office Visit (PODIWS ) ----- CLIFTON CAGE ([id number]) 1980 F Date Time Provider Department 06/20/24 [...] neuropathy that has been getting worse. DINA 2018 Rajiv Baer 06/20/2024 11:22 AM Signed Initial Office Visit [...] every 6 hours as needed for Nausea/Vomiting. multivitamin,co-gsaa-dcvd rals (THERAGRAN M) tab Take 1 tablet by mouth once daily. oseltamivir (TAMIFLU) 75 mg capsule Take 1 capsule by mouth every 12 hours. (Patient not taking: Reported on 11/26/2023) p (more content not included)... Normal [facility] XR FOOT 3V AP/LAT/OBL BILon 06-20-2024 XR [...] destruction. Bilateral plantar and dorsal calcaneal enthesophytes. Shoe Turner: KIMBER Transcribe Date/Time: Jun 23 2024 4:40P Dictated by : JODEE FRASER MD This examination was interpreted and the report reviewed and electronically signed by: JODEE FRASER MD on Jun 23 2024 4:41PM EST [id number] Normal [facility] Pulmonary Visit Reporton Pulmonary Visit Report [facility] [address] [place] [address] OFFICE VISIT Date of Service: 06/13/24 MR#: [id number] Acct: [id number] Name: CLIFTON CAGE Rep #: [id number] : 1980 Provider: OSMANY Lee Age/Sex: 43/F Location: [facility] [place] Status: Signed Assessment and Plan Assessment and [...] months. Plan Details Follow Up: 6 Months ([facility]) HPI 4 M FU Chief Complaint: Routine [...] FU Chief Complaint: right hand 5th finger 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 DME Vendor: [employer] Accompanied by: Allergies nabumetone Allergy (Unknown, Verified 06/13/24 10:33) Unknown hydrocodone bitartrate (From [place]) Allergy (Verified 06/13/24 10:33) Itching Penicillins Allergy [...] fluoxetine 4 (more content not included)... Normal [facility] SCRN MAMM (CAD)W/DEVON BILATo n 06-01-2024 SCRN MAMM (CAD)W/DEVON BILAT [facility] Imaging Services [address] [place] [address] SCRN MAMM (CAD)W/DEVON BILAT MR#: [id number] Acct: [id number] Name: CLIFTON CAGE Rep #: [id number] : 1980 F 43 From: Mil redd MD PCP: Dr. Kenneth Villanueva DO Status: REG CL Study: SCRN MAMM (CAD)W/DEVON BILAT Date of Exam: 05/05 06/27 Exam# [id number] Ordering Dr: Kenneth Villanueva DO [id number] MAMMOGRAPHY - BILATERAL SCREENING REASON FOR EXAM: [...] delay biopsy of a clinically suspicious abnormality. [id number] Electronically Signed: Mil Spain MD at 13:46 EDT , CC: Dr. Kenneth Villanueva, Shoe Turner: Signed Normal [facility] Bacteria identified Respirat ory culture Nom (Unsp spec)Ordered By: Flori Lee on 02-04-2024 Respiratory Culture Moraxella Catarrhalis [facility] Gram stain for investigation of transfusion reactionOrdered By: Flori Lee on 02-04-2024 Microscopic observation Gram stain Nom (Unsp spec) [facility] Absolute lymphocyte countOrd ered By: Maria A Hurtado on 11-26-2023 Lymphocytes Auto (Unsp spec) [#/Vol] 3.28 10*3/uL 0.83-4.51 [facility] Automated lymphocyte count a s percentage of total leukocytesOrdered By: Maria A Hurtado on 11-26-2023 Lymphocytes/100 WBC Auto (Unsp spec) 27.0 % 19-41 [facility] Basophil percentageOrdered B y: Maria A Hurtado on 11-26-2023 Basophils/100 WBC (Bld) 0.4 % 0-1 [facility] Chloride [Moles/Vol] 104 mmol/L 98-107 [facility] Eosinophils/100 WBC (Bld) 0.5 % 0-5 [facility] Glucose [Mass/Vol] 225 mg/dL 74-106 [facility] Comment on above: Glucose result great er than or equal to 200 mg/dLsuggests DIABETES MELLITUS per A.D.A. criteria. Hemoglobin (Bld) [Mass/Vol] 14.7 g/dL 12.0-15.0 [facility] Monocytes/100 WBC (Bld) 7.7 % 0-10 [facility] Neutrophils (Bld) [#/Vol] 7.7 10*3/uL 2.0-7.7 [facility] Neutrophils/100 WBC (Bld) 63.2 % 47-70 [facility] Potassium [Moles/Vol] 3.2 mmol/L 3.5-5.1 [facility] Comment on above: Slight Hemolysis, Re sult may be falsely increased. Sodium [Moles/Vol] 140 mmol/L 136-145 [facility] WBC (Bld) [#/Vol] 12.1 10*3/uL 4.4-11.0 [facility] Determination of erythrocyte mean corpuscular volume (MCV)Ordered By: Maria A Hurtado on 11-26-2023 MCV (RBC) [Entitic vol] 81.8 fL 81-99 [facility] Erythrocyte distribution wid th ratioOrdered By: Maria A Hurtado on 11-26-2023 Erythrocyte distribution width (RBC) [Ratio] 13.2 % 11.6-14.6 [facility] Erythrocyte distribution wid th standard deviationOrdered By: Maria A Hurtado on 11-26-2023 Erythrocyte distribution width (RBC) [Entitic vol] 39.2 fL 35.1-43.9 [facility] Hematocrit Auto (Bld) [Volum e fraction]Ordered By: Maria A Hurtado on 11-26-2023 Hematocrit (Bld) [Volume fraction] 44.6 % 37-47 [facility] Immature granulocytes/100 WB C Auto (Bld)Ordered By: Maria A Hurtado on 11-26-2023 Immature granulocytes/100 WBC (Bld) 1.200 % 0.0-0.9 [facility] Comment on above: IG% - Immature Granu locytes (promyelocytes, myelocytes and metamyelocytes) > 1% indicates that a LEFT SHIFT is Present. Laboratory - Chemistry and C hemistry - challengeOrdered By: Maria A Hurtado on 11-26-2023 CO2 [Moles/Vol] 32.0 mmol/L 21.0-32.0 [facility] Urea nitrogen/Creatinine [Mass ratio] 11.0 mg/mg 10-20 [facility] Laboratory - Hematology and Cell countsOrdered By: Maria A Hurtado on 11-26-2023 MCH (RBC) [Entitic mass] 27.0 pg 27.0-32.0 [facility] MCHC (RBC) [Mass/Vol] 33.0 g/dL 32-36 [facility] Nucleated RBC/100 WBC (Bld) [Ratio] 0 % 0-5 [facility] Platelet mean volume (Bld) [Entitic vol] 9.2 fL 6.2-12.0 [facility] Platelets (Bld) [#/Vol] 243 10*3/uL 150-450 [facility] No Panel InformationOrdered By: Maria A Hurtado on 11-26-2023 Estimated Creatinine Clearance Calc 111.40 ml/min [facility] Estimated GFR (MDRD) Amer 88 mL/min >60 [facility] Comment on above: GFR Calc Estimated GFR (MDRD) Non-Af Amer 72 mL/min >60 [facility] Comment on above: Non- GFR Calc RBC Auto (Bld) [#/Vol]Ordere d By: Maria A Hurtado on 11-26-2023 RBC (Bld) [#/Vol] 5.45 10*6/uL 4.2-5.4 [facility] Serum or plasma calcium rashi urement (mass/volume)Ordered By: Maria A Hurtado on 11-26-2023 Calcium [Mass/Vol] 8.7 mg/dL 8.5-10.1 [facility] Serum or plasma creatinine m easurement (mass/volume)Ordered By: Maria A Hurtado on 11-26-2023 Creatinine [Mass/Vol] 0.91 mg/dL 0.55-1.02 [facility] Comment on above: The validity of the calculated GFR & GFRAA in patients over 70 years has not been determined. Clinical correlation is essential. Serum or plasma urea nitroge n measurement (mass/volume)Ordered By: Maria A Hurtado on 11-26-2023 Urea nitrogen [Mass/Vol] 10 mg/dL 7-18 [facility] Thin prep Papanicolaou smear with manual screeningOrdered By: Maria A Hurtado on 11-26-2023 Thin prep Papanicolaou smear with manual screening 4 5-15 [facility] Laboratory - Microbiology an d Antimicrobial susceptibilityOrdered By: Steven Pollard on 11-17-2023 SARS-CoV-2 (COVID-19) RNA GURPREET+probe Ql (Unsp spec) Influenzae A [facility] SARS-CoV-2 (COVID-19) RNA GURPREET+probe Ql (Unsp spec) Influenzae A [facility] Absolute lymphocyte countOrd ered By: Ifeanyi Hernandez on 10-09-2023 Lymphocytes Auto (Unsp spec) [#/Vol] 0.91 10*3/uL 0.83-4.51 [facility] Basophil percentageOrdered B y: Ifeanyi Hernandez on 10-09-2023 Basophils/100 WBC (Bld) 0.3 % 0-1 [facility] Bilirubin [Mass/Vol] 0.90 mg/dL 0.20-1.00 [facility] Comment on above: For patients on eltr ombopag therapy, use of Dimension [place] TBIL is not recommended. Chloride [Moles/Vol] 101 mmol/L 98-107 [facility] Eosinophils/100 WBC (Bld) 0.1 % 0-5 [facility] Glucose [Mass/Vol] 190 mg/dL 74-106 [facility] Comment on above: Fasting Glucose resu lt greater than or equal to 126 mg/dL suggests DIABETES MELLITUS per A.D.A. criteria. Neutrophils (Bld) [#/Vol] 13.9 10*3/uL 2.0-7.7 [facility] Neutrophils/100 WBC (Bld) 89.6 % 47-70 [facility] Potassium [Moles/Vol] 3.9 mmol/L 3.5-5.1 [facility] Protein [Mass/Vol] 8.6 g/dL 6.4-8.2 [facility] Sodium [Moles/Vol] 137 mmol/L 136-145 [facility] WBC (Bld) [#/Vol] 15.5 10*3/uL 4.4-11.0 [facility] Blood erythrocytes count (nu mber/volume)Ordered By: Ifeanyi Hernandez on 10-09-2023 RBC (Bld) [#/Vol] 6.01 10*6/uL 4.2-5.4 [facility] Blood hemoglobin measurement (mass/volume)Ordered By: Ifeanyi Hernandez on 10-09-2023 Hemoglobin (Bld) [Mass/Vol] 16.2 g/dL 12.0-15.0 [facility] Blood lymphocytes/100 leukoc ytesOrdered By: Ifeanyi Hernandez on 10-09-2023 Lymphocytes/100 WBC (Bld) 5.9 % 19-41 [facility] Blood monocytes/100 leukocyt esOrdered By: Ifeanyi Hernandez on 10-09-2023 Monocytes/100 WBC (Bld) 3.7 % 0-10 [facility] Blood platelet mean volumeOr dered By: Ifeanyi Hernandez on 10-09-2023 Platelet mean volume (Bld) [Entitic vol] 9.9 fL 6.2-12.0 [facility] Determination of erythrocyte mean corpuscular volume (MCV)Ordered By: Ifeanyi Hernandez on 10-09-2023 MCV (RBC) [Entitic vol] 81.7 fL 81-99 [facility] Direct bilirubinOrdered By: Ifeanyi Hernandez on 10-09-2023 Bilirubin.direct [Mass/Vol] 0.20 mg/dL 0.00-0.30 [facility] Hematocrit Auto (Bld) [Volum e fraction]Ordered By: Ifeanyi Hernandez on 10-09-2023 Hematocrit (Bld) [Volume fraction] 49.1 % 37-47 [facility] Laboratory - Chemistry and C hemistry - challengeOrdered By: Ifeanyi Hernandez on 10-09-2023 ALP [Catalytic activity/Vol] 87 U/L 45-117 [facility] ALT [Catalytic activity/Vol] 63 U/L 13-56 [facility] CO2 [Moles/Vol] 28.0 mmol/L 21.0-32.0 [facility] Globulin (S) [Mass/Vol] 4.7 g/dL 2.2-4.2 [facility] Lipase [Catalytic activity/Vol] 25 U/L 13-75 [facility] Comment on above: Please note:LIPASE r evised reference range effective 23. New Lipase methodology. Expected to produce lower values than the previous assay method. NEW Reference Range: 13 - 75 U/L Urea nitrogen/Creatinine [Mass ratio] 12.8 mg/mg 10-20 [facility] - Hematology and Cell countsOrdered By: Ifeanyi Hernnadez on 10-09-2023 Erythrocyte distribution width (RBC) [Entitic vol] 38.7 fL 35.1-43.9 [facility] Erythrocyte distribution width (RBC) [Ratio] 13.5 % 11.6-14.6 [facility] Immature granulocytes/100 WBC (Bld) 0.400 % 0.0-0.9 [facility] Comment on above: IG% - Immature Granu locytes (promyelocytes, myelocytes and metamyelocytes) > 1% indicates that a LEFT SHIFT is Present. MCH (RBC) [Entitic mass] 27.0 pg 27.0-32.0 [facility] Nucleated RBC/100 WBC (Bld) [Ratio] 0 % 0-5 [facility] MCHC Auto (RBC) [Mass/Vol]Or dered By: Ifeanyi Hernandez on 10-09-2023 MCHC (RBC) [Mass/Vol] 33.0 g/dL 32-36 [facility] No Panel InformationOrdered By: Ifeanyi Hernandez on 10-09-2023 Estimated GFR (MDRD) Amer 66 mL/min >60 [facility] Comment on above: GFR Calc Estimated GFR (MDRD) Non-Af Amer 54 mL/min >60 [facility] Comment on above: Non- GFR Calc Platelets bldOrdered By: Jermaine Hernandez on 10-09-2023 Platelets (Bld) [#/Vol] 271 10*3/uL 150-450 [facility] Serum or plasma albumin rashi urement (mass/volume)Ordered By: Ifeanyi Hernandez on 10-09-2023 Albumin [Mass/Vol] 3.9 g/dL 3.2-5.0 [facility] Serum or plasma calcium rashi urement (mass/volume)Ordered By: Ifeanyi Hernandez on 10-09-2023 Calcium [Mass/Vol] 9.5 mg/dL 8.5-10.1 [facility] Serum or plasma creatinine m easurement (mass/volume)Ordered By: Ifeanyi Hernandez on 10-09-2023 Creatinine [Mass/Vol] 1.17 mg/dL 0.55-1.02 [facility] Comment on above: The validity of the calculated GFR & GFRAA in patients over 70 years has not been determined. Clinical correlation is essential. Serum or plasma urea nitroge n measurement (mass/volume)Ordered By: Ifeanyi Hernandez on 10-09-2023 Urea nitrogen [Mass/Vol] 15 mg/dL 7-18 [facility] Thin prep Papanicolaou smear with manual screeningOrdered By: Ifeanyi Hernandez on 10-09-2023 Thin prep Papanicolaou smear with manual screening 37 U/L 15-37 [facility] Thin prep Papanicolaou smear with manual screening 8 5-15 [facility] Basophil percentageOrdered B y: Norma Dunn on 09-01-2023 Bilirubin [Mass/Vol] 0.50 mg/dL 0.20-1.00 [facility] Comment on above: For patients on eltr ombopag therapy, use of Dim[place] TBIL is not recommended. Cholesterol [Mass/Vol] 175 mg/dL <200 [facility] Comment on above: <200 mg/dL Desirable 200-240 mg/dL Borderline >240 mg/dL High Risk Protein [Mass/Vol] 7.8 g/dL 6.4-8.2 [facility] Triglyceride [Mass/Vol] 159 mg/dL <199 [facility] Comment on above: The drugs N-Acetylcy steine and Metamizole may falsely depress this assay.Serum Triglycerides Reference Interval Normal <150 mg/dL Borderline high 150 - 199 mg/dL High 200 - 499 mg/dL Very High > or = 500 mg/dL Basophil percentageOrdered B y: Evon Ryan on 09-01-2023 Chloride [Moles/Vol] 102 mmol/L 98-107 [facility] Glucose [Mass/Vol] 177 mg/dL 74-106 [facility] Comment on above: Fasting Glucose resu lt greater than or equal to 126 mg/dL suggests DIABETES MELLITUS per A.D.A. criteria. Potassium [Moles/Vol] 3.7 mmol/L 3.5-5.1 [facility] Sodium [Moles/Vol] 139 mmol/L 136-145 [facility] Direct bilirubinOrdered By: Norma Dunn on 09-01-2023 Bilirubin.direct [Mass/Vol] 0.11 mg/dL 0.00-0.30 [facility] Laboratory - Chemistry and C hemistry - challengeOrdered By: Norma Dunn on 09-01-2023 ALP [Catalytic activity/Vol] 93 U/L 45-117 [facility] ALT [Catalytic activity/Vol] 44 U/L 13-56 [facility] Globulin (S) [Mass/Vol] 4.2 g/dL 2.2-4.2 [facility] - Chemistry and C hemistry - challengeOrdered By: Evon Ryan on 09-01-2023 CO2 [Moles/Vol] 32.0 mmol/L 21.0-32.0 [facility] Urea nitrogen/Creatinine [Mass ratio] 10.8 mg/mg 10-20 [facility] No Panel InformationOrdered By: Evon Ryan on 09-01-2023 Estimated GFR (MDRD) Amer 86 mL/min >60 [facility] Comment on above: GFR Calc Estimated GFR (MDRD) Non-Af Amer 71 mL/min >60 [facility] Comment on above: Non- GFR Calc Serum or plasma albumin rashi urement (mass/volume)Ordered By: Norma Dunn on 09-01-2023 Albumin [Mass/Vol] 3.6 g/dL 3.2-5.0 [facility] Serum or plasma calcium rashi urement (mass/volume)Ordered By: Evon Ryan on 09-01-2023 Calcium [Mass/Vol] 9.0 mg/dL 8.5-10.1 [facility] Serum or plasma cholesterol in HDL measurement (mass/volume)Ordered By: Norma Dunn on 09-01-2023 Cholesterol in HDL [Mass/Vol] 43 mg/dL >40 [facility] Comment on above: The drugs N-Acetylcy steine and Metamizole may falsely depress this assay. Reference Range HDL <40 mg/dL Low HDL Cholesterol HDL >or= 60 mg/dL High HDL Cholesterol Serum or plasma cholesterol in VLDL measurement (mass/volume)Ordered By: Norma Dunn on 09-01-2023 Cholesterol in VLDL [Mass/Vol] 32 mg/dL 5-40 [facility] Serum or plasma creatinine m easurement (mass/volume)Ordered By: Evon Ryan on 09-01-2023 Creatinine [Mass/Vol] 0.92 mg/dL 0.55-1.02 [facility] Comment on above: The validity of the calculated GFR & GFRAA in patients over 70 years has not been determined. Clinical correlation is essential. Serum or plasma low density lipoprotein (LDL) cholesterol measurement (mass/volume)Ordered By: Norma Dunn on 09-01-2023 Cholesterol in LDL [Mass/Vol] 100 mg/dL 0-130 [facility] Serum or plasma urea nitroge n measurement (mass/volume)Ordered By: Evon Ryan on 09-01-2023 Urea nitrogen [Mass/Vol] 10 mg/dL 7-18 [facility] Thin prep Papanicolaou smear with manual screeningOrdered By: Norma Dunn on 09-01-2023 Thin prep Papanicolaou smear with manual screening 22 U/L 15-37 [facility] Thin prep Papanicolaou smear with manual screeningOrdered By: Evon Ryan on 09-01-2023 Thin prep Papanicolaou smear with manual screening 5 5-15 [facility] XR DIGIT GENERAL 3V FRONTAL/ LAT/OBL RIGHTon 05-31-2023 [facility] Absolute lymphocyte countOrd ered By: Steven Pollard on 04-27-2023 Lymphocytes Auto (Unsp spec) [#/Vol] 1.81 10*3/uL 0.83-4.51 [facility] Basophil percentageOrdered B y: Steven Pollard on 04-27-2023 Basophils/100 WBC (Bld) 0.4 % 0-1 [facility] Chloride [Moles/Vol] 105 mmol/L 98-[address] [facility] Eosinophils/100 WBC (Bld) 0.5 % 0-5 [facility] Glucose [Mass/Vol] 180 mg/dL 74-106 [facility] Comment on above: Fasting Glucose resu lt greater than or equal to 126 mg/dL suggests DIABETES MELLITUS per A.D.A. criteria. Neutrophils (Bld) [#/Vol] 8.1 10*3/uL 2.0-7.7 [facility] Neutrophils/100 WBC (Bld) 75.6 % 47-70 [facility] Potassium [Moles/Vol] 3.5 mmol/L 3.5-5.1 [facility] Sodium [Moles/Vol] 138 mmol/L 136-145 [facility] WBC (Bld) [#/Vol] 10.7 10*3/uL 4.4-11.0 [facility] Blood erythrocytes count (nu mber/volume)Ordered By: Steven Pollard on 04-27-2023 RBC (Bld) [#/Vol] 5.34 10*6/uL 4.2-5.4 [facility] Blood hemoglobin measurement (mass/volume)Ordered By: Steven Pollard on 04-27-2023 Hemoglobin (Bld) [Mass/Vol] 14.5 g/dL 12.0-15.0 [facility] Blood lymphocytes/100 leukoc ytesOrdered By: Steven Pollard on 04-27-2023 Lymphocytes/100 WBC (Bld) 16.9 % 19-41 [facility] Blood monocytes/100 leukocyt esOrdered By: Steven Pollard on 04-27-2023 Monocytes/100 WBC (Bld) 6.3 % 0-10 [facility] Blood platelet mean volumeOr dered By: Steven Pollard on 04-27-2023 Platelet mean volume (Bld) [Entitic vol] 9.8 fL 6.2-12.0 [facility] Determination of erythrocyte mean corpuscular volume (MCV)Ordered By: Steven Pollard on 04-27-2023 MCV (RBC) [Entitic vol] 82.0 fL 81-99 [facility] Hematocrit Auto (Bld) [Volum e fraction]Ordered By: Steven Pollard on 04-27-2023 Hematocrit (Bld) [Volume fraction] 43.8 % 37-47 [facility] - Chemistry and C hemistry - challengeOrdered By: Setven Pollard on 04-27-2023 CO2 [Moles/Vol] 26.0 mmol/L 21.0-32.0 [facility] Urea nitrogen/Creatinine [Mass ratio] 12.0 mg/mg 10-20 [facility] - Hematology and Cell countsOrdered By: Steven Pollard on 04-27-2023 Erythrocyte distribution width (RBC) [Entitic vol] 37.9 fL 35.1-43.9 [facility] Erythrocyte distribution width (RBC) [Ratio] 12.8 % 11.6-14.6 [facility] Immature granulocytes/100 WBC (Bld) 0.300 % 0.0-0.9 [facility] Comment on above: IG% - Immature Granu locytes (promyelocytes, myelocytes and metamyelocytes) > 1% indicates that a LEFT SHIFT is Present. MCH (RBC) [Entitic mass] 27.2 pg 27.0-32.0 [facility] Nucleated RBC/100 WBC (Bld) [Ratio] 0 % 0-5 [facility] MCHC Auto (RBC) [Mass/Vol]Or dered By: tSeven Pollard on 04-27-2023 MCHC (RBC) [Mass/Vol] 33.1 g/dL 32-36 [facility] No Panel InformationOrdered By: Steven Pollard on 04-27-2023 Estimated Creatinine Clearance Calc 75.44 ml/min [facility] Estimated GFR (MDRD) Amer 79 mL/min >60 [facility] Comment on above: GFR Calc Estimated GFR (MDRD) Non-Af Amer 65 mL/min >60 [facility] Comment on above: Non- GFR Calc Platelets bldOrdered By: Joseph Pollard on 04-27-2023 Platelets (Bld) [#/Vol] 235 10*3/uL 150-450 [facility] Serum or plasma calcium rashi urement (mass/volume)Ordered By: Steven Pollard on 04-27-2023 Calcium [Mass/Vol] 8.9 mg/dL 8.5-10.1 [facility] Serum or plasma creatinine m easurement (mass/volume)Ordered By: Steven Pollard on 04-27-2023 Creatinine [Mass/Vol] 1.00 mg/dL 0.55-1.02 [facility] Comment on above: The validity of the calculated GFR & GFRAA in patients over 70 years has not been determined. Clinical correlation is essential. Serum or plasma urea nitroge n measurement (mass/volume)Ordered By: Steven Pollard on 04-27-2023 Urea nitrogen [Mass/Vol] 12 mg/dL 7-18 [facility] Thin prep Papanicolaou smear with manual screeningOrdered By: Steven Pollard on 04-27-2023 Thin prep Papanicolaou smear with manual screening 7 5-15 [facility] Culture, urineOrdered By: Taya Arevalo on 02-19-2023 Bacteria identified Cx Nom (U) Positive [facility] Bacteria identified Cx Nom (U) Streptococcus agalactiae (B) [facility] - Chemistry and C hemistry - challengeon 02-19-2023 Bilirubin Ql (U) Negative [facility] Glucose Ql (U) Negative [facility] Ketones Ql (U) Negative [facility] pH (U) 6.5 [pH] [facility] Specific gravity (U) [Rel density] 1.010 [facility] Urobilinogen (U) [Mass/Vol] Negative [facility] Laboratory - Hematology and Cell countson 02-19-2023 Hemoglobin Ql (U) Large [facility] - Specimen inform ationon 02-19-2023 Clarity (U) Cloudy [facility] Color (U) YELLOW [facility] Laboratory - Urinalysison Nitrite Ql (U) Negative [facility] Protein Ql (U) 1+ [facility] No Panel Informationon 02-19 Urine Leukocytes Positive [facility] Urine Non-Hemolyzed Blood [facility] Basophil percentageOrdered B y: Dr. Arevalo on 02-02-2023 Bilirubin [Mass/Vol] 0.90 mg/dL 0.20-1.00 [facility] Comment on above: For patients on eltr ombopag therapy, use of Dimension [place] TBIL is not recommended. Chloride [Moles/Vol] 100 mmol/L 98-107 [facility] Glucose [Mass/Vol] 128 mg/dL 74-106 [facility] Comment on above: Fasting Glucose resu lt greater than or equal to 126 mg/dL suggests DIABETES MELLITUS per A.D.A. criteria. Potassium [Moles/Vol] 3.8 mmol/L 3.5-5.1 [facility] Protein [Mass/Vol] 8.1 g/dL 6.4-8.2 [facility] Sodium [Moles/Vol] 137 mmol/L 136-145 [facility] Glucose Glucometer (BldC) [M ass/Vol]Ordered By: Dr. Arevalo on 02-02-2023 Glucose [Mass/Vol] 132 mg/dL 74-106 [facility] Comment on above: MANAGEMENT OF PATIEN T CARE PER NURSING PROTOCOL Laboratory - Chemistry and C hemistry - challengeOrdered By: Dr. Arevalo on 02-02-2023 ALP [Catalytic activity/Vol] 85 U/L 45-117 [facility] ALT [Catalytic activity/Vol] 42 U/L 13-56 [facility] CO2 [Moles/Vol] 28.0 mmol/L 21.0-32.0 [facility] Globulin (S) [Mass/Vol] 4.0 g/dL 2.2-4.2 [facility] Urea nitrogen/Creatinine [Mass ratio] 10.5 mg/mg 10-20 [facility] No Panel InformationOrdered By: Dr. Arevalo on 02-02-2023 Estimated Creatinine Clearance Calc 79.41 ml/min [facility] Estimated GFR (MDRD) Amer 84 mL/min >60 [facility] Comment on above: GFR Calc Estimated GFR (MDRD) Non-Af Amer 69 mL/min >60 [facility] Comment on above: Non- GFR Calc Serum or plasma albumin rashi urement (mass/volume)Ordered By: Dr. Arevalo on 02-02-2023 Albumin [Mass/Vol] 4.1 g/dL 3.2-5.0 [facility] Serum or plasma albumin/glob ulin mass ratioOrdered By: Dr. Arevalo on 02-02-2023 Albumin/Globulin [Mass ratio] 1.0 {ratio} 0.9-2.4 [facility] Serum or plasma calcium rashi urement (mass/volume)Ordered By: Dr. Arevalo on 02-02-2023 Calcium [Mass/Vol] 9.6 mg/dL 8.5-10.1 [facility] Serum or plasma creatinine m easurement (mass/volume)Ordered By: Dr. Arevalo on 02-02-2023 Creatinine [Mass/Vol] 0.95 mg/dL 0.55-1.02 [facility] Comment on above: The validity of the calculated GFR & GFRAA in patients over 70 years has not been determined. Clinical correlation is essential. Serum or plasma urea nitroge n measurement (mass/volume)Ordered By: Dr. Arevalo on 02-02-2023 Urea nitrogen [Mass/Vol] 10 mg/dL 7-18 [facility] Thin prep Papanicolaou smear with manual screeningOrdered By: Dr. Arevalo on 02-02-2023 Thin prep Papanicolaou smear with manual screening 20 U/L 15-37 [facility] Thin prep Papanicolaou smear with manual screening 9 5-15 [facility] Absolute lymphocyte countOrd ered By: Dr. Arevalo on 01-29-2023 Lymphocytes Auto (Unsp spec) [#/Vol] 3.46 10*3/uL 0.83-4.51 [facility] Basophil percentageOrdered B y: Dr. Arevalo on 01-29-2023 Basophils/100 WBC (Bld) 0.5 % 0-1 [facility] Eosinophils/100 WBC (Bld) 1.0 % 0-5 [facility] Neutrophils (Bld) [#/Vol] 5.4 10*3/uL 2.0-7.7 [facility] Neutrophils/100 WBC (Bld) 53.9 % 47-70 [facility] WBC (Bld) [#/Vol] 9.9 10*3/uL 4.4-11.0 [facility] Blood erythrocytes count (nu mber/volume)Ordered By: Dr. Arevalo on 01-29-2023 RBC (Bld) [#/Vol] 5.36 10*6/uL 4.2-5.4 [facility] Blood hemoglobin measurement (mass/volume)Ordered By: Dr. Arevalo on 01-29-2023 Hemoglobin (Bld) [Mass/Vol] 14.9 g/dL 12.0-15.0 [facility] Blood lymphocytes/100 leukoc ytesOrdered By: Dr. Arevalo on 01-29-2023 Lymphocytes/100 WBC (Bld) 34.8 % 19-41 [facility] Blood monocytes/100 leukocyt esOrdered By: Dr. Arevalo on 01-29-2023 Monocytes/100 WBC (Bld) 9.4 % 0-10 [facility] Blood platelet mean volumeOr dered By: Dr. Arevalo on 01-29-2023 Platelet mean volume (Bld) [Entitic vol] 9.7 fL 6.2-12.0 [facility] Determination of erythrocyte mean corpuscular volume (MCV)Ordered By: Dr. Arevalo on 01-29-2023 MCV (RBC) [Entitic vol] 82.5 fL 81-99 [facility] Hematocrit Auto (Bld) [Volum e fraction]Ordered By: Dr. Arevalo on 01-29-2023 Hematocrit (Bld) [Volume fraction] 44.2 % 37-47 [facility] - Chemistry and C hemistry - challengeOrdered By: Dr. Arevalo on 01-29-2023 Free T4 [Mass/Vol] 1.14 ng/dL 0.76-1.46 [facility] - Hematology and Cell countsOrdered By: Dr. Arevalo on 01-29-2023 Erythrocyte distribution width (RBC) [Entitic vol] 39.7 fL 35.1-43.9 [facility] Erythrocyte distribution width (RBC) [Ratio] 13.4 % 11.6-14.6 [facility] Immature granulocytes/100 WBC (Bld) 0.400 % 0.0-0.9 [facility] Comment on above: IG% - Immature Granu locytes (promyelocytes, myelocytes and metamyelocytes) > 1% indicates that a LEFT SHIFT is Present. MCH (RBC) [Entitic mass] 27.8 pg 27.0-32.0 [facility] Nucleated RBC/100 WBC (Bld) [Ratio] 0 % 0-5 [facility] MCHC Auto (RBC) [Mass/Vol]Or dered By: Dr. Arevalo on 01-29-2023 MCHC (RBC) [Mass/Vol] 33.7 g/dL 32-36 [facility] No Panel InformationOrdered By: Dr. Arevalo on 01-29-2023 Follicle Stimulating Hormone 8.3 mIU/mL [facility] Comment on above: NORMAL REFERENCE RAN GES FEMALE FOLLICULAR 2.3 - 12.6 mIU/mL MID-CYCLE PEAK 5.2 - 17.5 mIU/mL LUTEAL 1.7 - 12.9 mIU/mL POST-MENOPAUSAL ON MHT 5.9 - 72.8 mIU/mL NOT ON MHT 12.7 - 132.2 mlU/mL MALE 0.7 - 10.8 mIU/mL Thyroid Stimulating Hormone (TSH) 2.34 uIU/mL 0.358-3.74 [facility] Platelets bldOrdered By: Dr. Arevalo on 01-29-2023 Platelets (Bld) [#/Vol] 343 10*3/uL 150-450 [facility] Serum or plasma estradiol (E 2) measurement (mass/volume)Ordered By: Dr. Arevalo on 01-29-2023 E2 [Mass/Vol] 26.4 pg/mL [facility] Comment on above: NORMAL REFERENCE RAN GES [...] Auto (Unsp spec) [#/Vol] 1.27 10*3/uL 0.83-4.51 [facility] Basophil percentageOrdered B y: Dr. Pollard on 11-27-2022 Basophils/100 WBC (Bld) 0.6 % 0-1 [facility] Chloride [Moles/Vol] 104 mmol/L 98-107 [facility] Eosinophils/100 WBC (Bld) 2.0 % 0-5 [facility] Glucose [Mass/Vol] 187 mg/dL 74-106 [facility] Comment on above: Fasting Glucose resu lt greater than or equal to 126 mg/dL suggests DIABETES MELLITUS per A.D.A. criteria. Neutrophils (Bld) [#/Vol] 4.4 10*3/uL 2.0-7.7 [facility] Neutrophils/100 WBC (Bld) 66.8 % 47-70 [facility] Potassium [Moles/Vol] 3.5 mmol/L 3.5-5.1 [facility] Sodium [Moles/Vol] 137 mmol/L 136-145 [facility] WBC (Bld) [#/Vol] 6.5 10*3/uL 4.4-11.0 [facility] Blood erythrocytes count (nu mber/volume)Ordered By: Dr. Pollard on 11-27-2022 RBC (Bld) [#/Vol] 4.80 10*6/uL 4.2-5.4 [facility] Blood hemoglobin measurement (mass/volume)Ordered By: Dr. Pollard on 11-27-2022 Hemoglobin (Bld) [Mass/Vol] 13.5 g/dL 12.0-15.0 [facility] Blood lymphocytes/100 leukoc ytesOrdered By: Dr. Pollard on 11-27-2022 Lymphocytes/100 WBC (Bld) 19.5 % 19-41 [facility] Blood monocytes/100 leukocyt esOrdered By: Dr. Pollard on 11-27-2022 Monocytes/100 WBC (Bld) 10.6 % 0-10 [facility] Blood platelet mean volumeOr dered By: Dr. Pollard on 11-27-2022 Platelet mean volume (Bld) [Entitic vol] 9.7 fL 6.2-12.0 [facility] Determination of erythrocyte mean corpuscular volume (MCV)Ordered By: Dr. Pollard on 11-27-2022 MCV (RBC) [Entitic vol] 84.6 fL 81-99 [facility] Hematocrit Auto (Bld) [Volum e fraction]Ordered By: Dr. Pollard on 11-27-2022 Hematocrit (Bld) [Volume fraction] 40.6 % 37-47 [facility] - Chemistry and C hemistry - challengeOrdered By: Dr. Pollard on 11-27-2022 CO2 [Moles/Vol] 27.0 mmol/L 21.0-32.0 [facility] Urea nitrogen/Creatinine [Mass ratio] 8.3 mg/mg 10-20 [facility] - Hematology and Cell countsOrdered By: Dr. Pollard on 11-27-2022 Erythrocyte distribution width (RBC) [Entitic vol] 41.2 fL 35.1-43.9 [facility] Erythrocyte distribution width (RBC) [Ratio] 13.4 % 11.6-14.6 [facility] Immature granulocytes/100 WBC (Bld) 0.500 % 0.0-0.9 [facility] Comment on above: IG% - Immature Granu locytes (promyelocytes, myelocytes and metamyelocytes) > 1% indicates that a LEFT SHIFT is Present. MCH (RBC) [Entitic mass] 28.1 pg 27.0-32.0 [facility] Nucleated RBC/100 WBC (Bld) [Ratio] 0 % 0-5 [facility] MCHC Auto (RBC) [Mass/Vol]Or dered By: Dr. Pollard on 11-27-2022 MCHC (RBC) [Mass/Vol] 33.3 g/dL 32-36 [facility] No Panel InformationOrdered By: Dr. Pollard on 11-27-2022 Estimated Creatinine Clearance Calc 81.41 ml/min [facility] Estimated GFR (MDRD) Amer 83 mL/min >60 [facility] Comment on above: GFR Calc Estimated GFR (MDRD) Non-Af Amer 68 mL/min >60 [facility] Comment on above: Non- GFR Calc Platelets bldOrdered By: Dr. Pollard on 11-27-2022 Platelets (Bld) [#/Vol] 201 10*3/uL 150-450 [facility] Serum or plasma calcium rashi urement (mass/volume)Ordered By: Dr. Pollard on 11-27-2022 Calcium [Mass/Vol] 9.2 mg/dL 8.5-10.1 [facility] Serum or plasma creatinine m easurement (mass/volume)Ordered By: Dr. Pollard on 11-27-2022 Creatinine [Mass/Vol] 0.96 mg/dL 0.55-1.02 [facility] Comment on above: The validity of the calculated GFR & GFRAA in patients over 70 years has not been determined. Clinical correlation is essential. Serum or plasma urea nitroge n measurement (mass/volume)Ordered By: Dr. Pollard on 11-27-2022 Urea nitrogen [Mass/Vol] 8 mg/dL 7-18 [facility] Thin prep Papanicolaou smear with manual screeningOrdered By: Dr. Pollard on 11-27-2022 Thin prep Papanicolaou smear with manual screening 6 5-15 [facility] Thin prep Papanicolaou smear with manual screeningOrdered By: Felicia Gonzalez on 10-29-2022 Genital Culture Gardnerella vaginalis [facility] Gram stain for investigation of transfusion reactionOrdered By: Felicia Gonzalez on 10-27-2022 Microscopic observation Gram stain Nom (Unsp spec) [facility] Chlamydia trachomatis rRNA d etection by probe and target amplification methodOrdered By: Felicia Gonzalez on 10-26-2022 C. trachomatis rRNA GURPREET+probe Ql (Unsp spec) Negative Negative [facility] - Microbiology an d Antimicrobial susceptibilityOrdered By: Felicia Gonzalez on 10-26-2022 N. gonorrhoeae DNA GURPREET+probe Ql (Unsp spec) Negative Negative [facility] Comment on above: Performed at: =[address] [id number] Director: Lizette Marin MD, Phone: [phone] Absolute lymphocyte countOrd ered By: Dr. Tejada on 10-20-2022 Lymphocytes Auto (Unsp spec) [#/Vol] 2.06 10*3/uL 0.83-4.51 [facility] Basophil percentageOrdered B y: Dr. Tejada on 10-20-2022 Basophils/100 WBC (Bld) 0.2 % 0-1 [facility] Eosinophils/100 WBC (Bld) 0.9 % 0-5 [facility] Neutrophils (Bld) [#/Vol] 6.9 10*3/uL 2.0-7.7 [facility] Neutrophils/100 WBC (Bld) 69.6 % 47-70 [facility] WBC (Bld) [#/Vol] 9.9 10*3/uL 4.4-11.0 [facility] Basophil percentage 0 SEEN /hpf 0-5 [facility] Bilirubin [Mass/Vol] 0.70 mg/dL 0.20-1.00 [facility] Comment on above: For patients on eltr ombopag therapy, use of Dimension [place] TBIL is not recommended. Chloride [Moles/Vol] 103 mmol/L 98-107 [facility] Glucose [Mass/Vol] 201 mg/dL 74-106 [facility] Comment on above: Glucose result great er than or equal to 200 mg/dLsuggests DIABETES MELLITUS per A.D.A. criteria. Potassium [Moles/Vol] 3.5 mmol/L 3.5-5.1 [facility] Protein [Mass/Vol] 7.5 g/dL 6.4-8.2 [facility] Sodium [Moles/Vol] 137 mmol/L 136-145 [facility] Beta hCG serum qualOrdered B y: Dr. Tejada on 10-20-2022 Beta HCG ( test) Ql Negative [facility] Bilirubin Test strip Ql (U)O rdered By: Dr. Tejada on 10-20-2022 Bilirubin Ql (U) 1 mg/dL Negative [facility] Comment on above: COLOR OF URINE MAY A FFECT DIPSTICK RESULTS. Blood erythrocytes count (nu mber/volume)Ordered By: Dr. Tejada on 10-20-2022 RBC (Bld) [#/Vol] 5.04 10*6/uL 4.2-5.4 [facility] Blood hemoglobin measurement (mass/volume)Ordered By: Dr. Tejada on 10-20-2022 Hemoglobin (Bld) [Mass/Vol] 14.2 g/dL 12.0-15.0 [facility] Blood lymphocytes/100 leukoc ytesOrdered By: Dr. Tejada on 10-20-2022 Lymphocytes/100 WBC (Bld) 20.8 % 19-41 [facility] Blood monocytes/100 leukocyt esOrdered By: Dr. Tejada on 10-20-2022 Monocytes/100 WBC (Bld) 8.0 % 0-10 [facility] Blood platelet mean volumeOr dered By: Dr. Tejada on 10-20-2022 Platelet mean volume (Bld) [Entitic vol] 9.3 fL 6.2-12.0 [facility] Determination of erythrocyte mean corpuscular volume (MCV)Ordered By: Dr. Tejada on 10-20-2022 MCV (RBC) [Entitic vol] 86.1 fL 81-99 [facility] Hematocrit Auto (Bld) [Volum e fraction]Ordered By: Dr. Tejada on 10-20-2022 Hematocrit (Bld) [Volume fraction] 43.4 % 37-47 [facility] INR in Blood by Coagulation assayOrdered By: Dr. Tejada on 10-20-2022 INR Coag (Bld) [Relative time] 1.0 {INR} [facility] Ketones Test strip Ql (U)Ord ered By: Dr. Tejada on 10-20-2022 Ketones Ql (U) 15 mg/dl Negative [facility] Laboratory - Chemistry and C hemistry - challengeOrdered By: Dr. Tejada on 10-20-2022 ALP [Catalytic activity/Vol] 91 U/L 45-117 [facility] ALT [Catalytic activity/Vol] 54 U/L 13-56 [facility] CO2 [Moles/Vol] 28.0 mmol/L 21.0-32.0 [facility] Globulin (S) [Mass/Vol] 4.2 g/dL 2.2-4.2 [facility] Urea nitrogen/Creatinine [Mass ratio] 17.8 mg/mg 10-20 [facility] - CoagulationOrde red By: Dr. Tejada on 10-20-2022 aPTT Coag (Bld) [Time] 25.5 s 24.1-36.2 [facility] PT Coag (PPP) [Time] 13.3 s 11.7-14.9 [facility] - Hematology and Cell countsOrdered By: Dr. Tejada on 10-20-2022 Erythrocyte distribution width (RBC) [Entitic vol] 40.7 fL 35.1-43.9 [facility] Erythrocyte distribution width (RBC) [Ratio] 13.1 % 11.6-14.6 [facility] Immature granulocytes/100 WBC (Bld) 0.500 % 0.0-0.9 [facility] Comment on above: IG% - Immature Granu locytes (promyelocytes, myelocytes and metamyelocytes) > 1% indicates that a LEFT SHIFT is Present. MCH (RBC) [Entitic mass] 28.2 pg 27.0-32.0 [facility] Nucleated RBC/100 WBC (Bld) [Ratio] 0 % 0-5 [facility] MCHC Auto (RBC) [Mass/Vol]Or dered By: Dr. Tejada on 10-20-2022 MCHC (RBC) [Mass/Vol] 32.7 g/dL 32-36 [facility] Mucus LM Ql (Urine sed)Order ed By: Dr. Tejada on 10-20-2022 Mucus Ql (Urine sed) 0 SEEN /hpf [facility] Nitrite Test strip Ql (U)Ord ered By: Dr. Tejada on 10-20-2022 Nitrite Ql (U) Positive Negative [facility] No Panel InformationOrdered By: Dr. Tejada on 10-20-2022 Estimated Creatinine Clearance Calc 78.56 ml/min [facility] Estimated GFR (MDRD) Amer 89 mL/min >60 [facility] Comment on above: GFR Calc Estimated GFR (MDRD) Non-Af Amer 74 mL/min >60 [facility] Comment on above: Non- GFR Calc Platelets bldOrdered By: Dr. Tejada on 10-20-2022 Platelets (Bld) [#/Vol] 165 10*3/uL 150-450 [facility] Protein Test strip Ql (U)Ord ered By: Dr. Tejada on 10-20-2022 Protein Ql (U) 500 mg/dl Negative [facility] Serum or plasma albumin rashi urement (mass/volume)Ordered By: Dr. Tejada on 10-20-2022 Albumin [Mass/Vol] 3.3 g/dL 3.2-5.0 [facility] Serum or plasma albumin/glob ulin mass ratioOrdered By: Dr. Tejada on 10-20-2022 Albumin/Globulin [Mass ratio] 0.8 {ratio} 0.9-2.4 [facility] Serum or plasma calcium rashi urement (mass/volume)Ordered By: Dr. Tejada on 10-20-2022 Calcium [Mass/Vol] 8.6 mg/dL 8.5-10.1 [facility] Serum or plasma creatinine m easurement (mass/volume)Ordered By: Dr. Tejada on 10-20-2022 Creatinine [Mass/Vol] 0.90 mg/dL 0.55-1.02 [facility] Comment on above: The validity of the calculated GFR & GFRAA in patients over 70 years has not been determined. Clinical correlation is essential. Serum or plasma urea nitroge n measurement (mass/volume)Ordered By: Dr. Tejada on 10-20-2022 Urea nitrogen [Mass/Vol] 16 mg/dL 7-18 [facility] Squamous epithelial cells de tection in urine sediment by light microscopyOrdered By: Dr. Tejada on 10-20-2022 Epithelial cells.squamous LM Ql (Urine sed) 0 SEEN /hpf 5-10 [facility] Thin prep Papanicolaou smear with manual screeningOrdered By: Dr. Tejada on 10-20-2022 Thin prep Papanicolaou smear with manual screening 26 U/L 15-37 [facility] Thin prep Papanicolaou smear with manual screening 6 5-15 [facility] Urine blood detectionOrdered By: Dr. Tejada on 10-20-2022 RBC Ql (U) 250 /ul Negative [facility] RBC Ql (U) > 100 SEEN /hpf 0-5 [facility] Comment on above: Microscopic field is filled. Other elements may be obscured. Urine clarityOrdered By: Dr. Tejada on 10-20-2022 Clarity (U) Turbid Clear [facility] Urine color determinationOrd ered By: Dr. Tejada on 10-20-2022 Color (U) Red Yellow [facility] Urine glucose detectionOrder ed By: Dr. Tejada on 10-20-2022 Glucose Ql (U) 100 mg/dl Normal [facility] Urine leukocyte esterase det ection by dipstickOrdered By: Dr. Tejada on 10-20-2022 Leukocyte esterase Test strip Ql (U) 25 /ul Negative [facility] Urine pHOrdered By: Dr. Ranjit cunningham on 10-20-2022 pH (U) 6.5 [pH] 5.0 - 8.0 [facility] Urine sediment bacteria coun t by microscopy (number/high power field)Ordered By: Dr. Tejada on 10-20-2022 Bacteria LM.HPF (Urine sed) [#/Area] 0 /[HPF] None Seen [facility] Urine specific gravity measu rementOrdered By: Dr. Tejada on 10-20-2022 Specific gravity (U) [Rel density] 1.025 1.002-1.030 [facility] Urobilinogen Auto test strip Ql (U)Ordered By: Dr. Tejada on 10-20-2022 Urobilinogen Ql (U) Normal mg/dl Normal [facility] Basophil percentageOrdered B y: Flori Lee on 10-08-2022 Chloride [Moles/Vol] 103 mmol/L 98-107 [facility] Glucose [Mass/Vol] 138 mg/dL 74-106 [facility] Comment on above: Fasting Glucose resu lt greater than or equal to 126 mg/dL suggests DIABETES MELLITUS per A.D.A. criteria. Potassium [Moles/Vol] 3.5 mmol/L 3.5-5.1 [facility] Sodium [Moles/Vol] 137 mmol/L 136-145 [facility] Laboratory - Chemistry and C hemistry - challengeOrdered By: Flori Lee on 10-08-2022 CO2 [Moles/Vol] 28.0 mmol/L 21.0-32.0 [facility] Natriuretic peptide B (Bld) [Mass/Vol] 83.2 pg/mL 0-100 [facility] Urea nitrogen/Creatinine [Mass ratio] 10.1 mg/mg 10-20 [facility] No Panel InformationOrdered By: Flori Lee on 10-08-2022 Estimated GFR (MDRD) Amer 90 mL/min >60 [facility] Comment on above: GFR Calc Estimated GFR (MDRD) Non-Af Amer 74 mL/min >60 [facility] Comment on above: Non- GFR Calc Serum or plasma calcium rashi urement (mass/volume)Ordered By: Flori Lee on 10-08-2022 Calcium [Mass/Vol] 8.7 mg/dL 8.5-10.1 [facility] Serum or plasma creatinine m easurement (mass/volume)Ordered By: Flori Lee on 10-08-2022 Creatinine [Mass/Vol] 0.89 mg/dL 0.55-1.02 [facility] Comment on above: The validity of the calculated GFR & GFRAA in patients over 70 years has not been determined. Clinical correlation is essential. Serum or plasma urea nitroge n measurement (mass/volume)Ordered By: Flori Lee on 10-08-2022 Urea nitrogen [Mass/Vol] 9 mg/dL 7-18 [facility] Thin prep Papanicolaou smear with manual screeningOrdered By: Flori Lee on 10-08-2022 Thin prep Papanicolaou smear with manual screening 6 5-15 [facility] Basophil percentageOrdered B y: Norma Dunn on 08-14-2022 Bilirubin [Mass/Vol] 0.50 mg/dL 0.20-1.00 [facility] Comment on above: For patients on eltr ombopag therapy, use of Dimension [place] TBIL is not recommended. Cholesterol [Mass/Vol] 195 mg/dL <200 [facility] Comment on above: <200 mg/dL Desirable 200-240 mg/dL Borderline >240 mg/dL High Risk Protein [Mass/Vol] 7.7 g/dL 6.4-8.2 [facility] Triglyceride [Mass/Vol] 189 mg/dL <199 [facility] Comment on above: The drugs N-Acetylcy steine and Metamizole may falsely depress this assay.Serum Triglycerides Reference Interval Normal <150 mg/dL Borderline high 150 - 199 mg/dL High 200 - 499 mg/dL Very High > or = 500 mg/dL Direct bilirubinOrdered By: Norma Dunn on 08-14-2022 Bilirubin.direct [Mass/Vol] 0.12 mg/dL 0.00-0.30 [facility] - Chemistry and C hemistry - challengeOrdered By: Norma Dunn on 08-14-2022 ALP [Catalytic activity/Vol] 97 U/L 45-117 [facility] ALT [Catalytic activity/Vol] 96 U/L 13-56 [facility] Globulin (S) [Mass/Vol] 4.2 g/dL 2.2-4.2 [facility] Serum or plasma albumin rashi urement (mass/volume)Ordered By: Norma Dunn on 08-14-2022 Albumin [Mass/Vol] 3.5 g/dL 3.2-5.0 [facility] Serum or plasma cholesterol in HDL measurement (mass/volume)Ordered By: Norma Dunn on 08-14-2022 Cholesterol in HDL [Mass/Vol] 37 mg/dL >40 [facility] Comment on above: The drugs N-Acetylcy steine and Metamizole may falsely depress this assay. Reference Range HDL <40 mg/dL Low HDL Cholesterol HDL >or= 60 mg/dL High HDL Cholesterol Serum or plasma cholesterol in VLDL measurement (mass/volume)Ordered By: Norma Dunn on 08-14-2022 Cholesterol in VLDL [Mass/Vol] 38 mg/dL 5-40 [facility] Serum or plasma low density lipoprotein (LDL) cholesterol measurement (mass/volume)Ordered By: Norma Dunn on 08-14-2022 Cholesterol in LDL [Mass/Vol] 120 mg/dL 0-130 [facility] Thin prep Papanicolaou smear with manual screeningOrdered By: Norma Dunn on 08-14-2022 Thin prep Papanicolaou smear with manual screening 64 U/L 15-37 [facility] Absolute lymphocyte countOrd ered By: Norma Dunn on 06-25-2022 Lymphocytes Auto (Unsp spec) [#/Vol] 2.05 10*3/uL 0.83-4.51 [facility] Basophil percentageOrdered B y: Norma Dunn on 06-25-2022 Basophils/100 WBC (Bld) 0.3 % 0-1 [facility] Eosinophils/100 WBC (Bld) 1.3 % 0-5 [facility] Neutrophils (Bld) [#/Vol] 7.8 10*3/uL 2.0-7.7 [facility] Neutrophils/100 WBC (Bld) 70.6 % 47-70 [facility] WBC (Bld) [#/Vol] 11.1 10*3/uL 4.4-11.0 [facility] Blood erythrocytes count (nu mber/volume)Ordered By: Norma Dunn on 06-25-2022 RBC (Bld) [#/Vol] 5.28 10*6/uL 4.2-5.4 [facility] Blood hemoglobin measurement (mass/volume)Ordered By: Norma Dunn on 06-25-2022 Hemoglobin (Bld) [Mass/Vol] 14.5 g/dL 12.0-15.0 [facility] Blood lymphocytes/100 leukoc ytesOrdered By: Norma Dunn on 06-25-2022 Lymphocytes/100 WBC (Bld) 18.5 % 19-41 [facility] Blood monocytes/100 leukocyt esOrdered By: Norma Dunn on 06-25-2022 Monocytes/100 WBC (Bld) 8.8 % 0-10 [facility] Blood platelet mean volumeOr dered By: Norma Dunn on 06-25-2022 Platelet mean volume (Bld) [Entitic vol] 9.8 fL 6.2-12.0 [facility] Determination of erythrocyte mean corpuscular volume (MCV)Ordered By: Norma Dunn on 06-25-2022 MCV (RBC) [Entitic vol] 85.8 fL 81-99 [facility] Hematocrit Auto (Bld) [Volum e fraction]Ordered By: Norma Dunn on 06-25-2022 Hematocrit (Bld) [Volume fraction] 45.3 % 37-47 [facility] - Hematology and Cell countsOrdered By: Norma Dunn on 06-25-2022 Erythrocyte distribution width (RBC) [Entitic vol] 41.0 fL 35.1-43.9 [facility] Erythrocyte distribution width (RBC) [Ratio] 13.2 % 11.6-14.6 [facility] Immature granulocytes/100 WBC (Bld) 0.500 % 0.0-0.9 [facility] Comment on above: IG% - Immature Granu locytes (promyelocytes, myelocytes and metamyelocytes) > 1% indicates that a LEFT SHIFT is Present. MCH (RBC) [Entitic mass] 27.5 pg 27.0-32.0 [facility] Nucleated RBC/100 WBC (Bld) [Ratio] 0 % 0-5 [facility] MCHC Auto (RBC) [Mass/Vol]Or dered By: Norma Dunn on 06-25-2022 MCHC (RBC) [Mass/Vol] 32.0 g/dL 32-36 [facility] No Panel InformationOrdered By: Norma Dunn on 06-25-2022 Thyroid Stimulating Hormone (TSH) 1.88 uIU/mL 0.358-3.74 [facility] Platelets bldOrdered By: Israel Dunn on 06-25-2022 Platelets (Bld) [#/Vol] 251 10*3/uL 150-450 [facility] Basophil percentageon 2021 Chloride [Moles/Vol] 102 mmol/L 98-107 [facility] Work Phone: Glucose [Mass/Vol] 168 mg/dL 74-106 [facility] Work Phone: Comment on above: Fasting Glucose resu lt greater than or equal to 126 mg/dL suggests DIABETES MELLITUS per A.D.A. criteria. Potassium [Moles/Vol] 3.6 mmol/L 3.5-5.1 [facility] Work Phone: Sodium [Moles/Vol] 138 mmol/L 136-145 [facility] Work Phone: Laboratory - Chemistry and C hemistry - challengeon 06-06-2022 CO2 [Moles/Vol] 33.0 mmol/L 21.0-32.0 [facility] Work Phone: Urea nitrogen/Creatinine [Mass ratio] 11.0 mg/mg 10-20 [facility] Work Phone: No Panel Informationon 06-06 Estimated GFR (MDRD) Amer 88 mL/min >60 [facility] Work Phone: Comment on above: GFR Calc Estimated GFR (MDRD) Non-Af Amer 73 mL/min >60 [facility] Work Phone: Comment on above: Non- GFR Calc Urine Microalbumin/Creatinin e Ratio 819.1 mg/g CRE <30 [facility] Work Phone: Serum or plasma calcium rashi urement (mass/volume)on 06-06-2022 Calcium [Mass/Vol] 8.7 mg/dL 8.5-10.1 [facility] Work Phone: Serum or plasma creatinine m easurement (mass/volume)on 06-06-2022 Creatinine [Mass/Vol] 0.91 mg/dL 0.55-1.02 [facility] Work Phone: Comment on above: The validity of the calculated GFR & GFRAA in patients over 70 years has not been determined. Clinical correlation is essential. Serum or plasma urea nitroge n measurement (mass/volume)on 06-06-2022 Urea nitrogen [Mass/Vol] 10 mg/dL 7-18 [facility] Work Phone: Thin prep Papanicolaou smear with manual screeningon 06-06-2022 Thin prep Papanicolaou smear with manual screening 3 5-15 [facility] Work Phone: Thin prep Papanicolaou smear with manual screening 1540.0 mg/L NO RANGE EST. [facility] Work Phone: Urine creatinine measurement (mass/volume)on 06-06-2022 Creatinine (U) [Mass/Vol] 188.00 mg/dL NO RANGE EST. [facility] Work Phone: Urine protein measurement (m ass/volume)on 06-06-2022 Protein (U) [Mass/Vol] 232.1 mg/dL 0.0-11.8 [facility] Work Phone: Urine protein/creatinine mas s ratioon 06-06-2022 Protein/Creatinine (U) [Mass ratio] 1235 mg/g CRE 0-200 [facility] Work Phone: MALBRon 10-12-2018 U Creatinine 312.0 mg/dL Normal [facility] ([place]) Comment on above: Performed By: #### C MP, GFR, BHB, INSLN, CPEP ####[address] [id number]#### IPROIN ####[address] [address] U Microalb [address]395 mcg/dL Normal [facility] ([place]) Comment on above: Performed By: #### C MP, GFR, BHB, INSLN, CPEP ####[address] [id number]#### IPROIN ####[id number] [place], [place] [address] U Ratio Alb/Cre 73.9 mcg/mg High 0.0-24.9 [facility] ([place]) Comment on above: Performed By: #### C MP, GFR, BHB, INSLN, CPEP ####[address] [id number]#### IPROIN ####[id number] [place], [place] [address] .GFRon 10-11-2018 GFR 107 ml/min/1.73sqm Normal [facility] [facility] ([place]) Comment on above: Result Comment: GFR Population [...] #### C MP, GFR, BHB, INSLN, CPEP ####[address] [address]#### IPROIN ####[facility] [place], [place] [address] GFR Non- 88 ml/min/1.73sqm Normal [facility] ([place]) Comment on above: Result Comment: GFR Population [...] #### C MP, GFR, BHB, INSLN, CPEP ####[place] [address]#### IPROIN ####[facility] [place], [place] [address] A1Con 10-11-2018 Hemoglobin A1c/Hemoglobin.total mass fraction (Bld) 6.4 % High 4.5-6.2 [facility] ([place] Comment on above: Performed By: #### A 1C, TSH, LIPID, CMP, GFR ####[place] [address] CMPon 10-11-2018 Albumin mass conc 3.7 G/dL Normal 3.5-5.0 [facility] ([place]) Comment on above: Performed By: #### C MP, GFR, BHB, INSLN, CPEP ####[place] [address]#### IPROIN ####[facility] [place], [place] [address] Albumin/Globulin mass ratio 1.0 {ratio} Low 1.1-2.5 [facility] ([place] Comment on above: Performed By: #### C MP, GFR, BHB, INSLN, CPEP ####[place] [address]#### IPROIN ####[place] [address] [place], [place] [address] ALP enzyme act/vol 65 U/L Normal 40-135 [facility] ([place]) Comment on above: Performed By: #### C MP, GFR, BHB, INSLN, CPEP ####[place] [address]#### IPROIN ####[facility] [place], [place] [address] ALT enzyme act/vol 63 U/L High 10-35 [facility] ([place] Comment on above: Performed By: #### C MP, GFR, BHB, INSLN, CPEP ####[place] [address]#### IPROIN ####[facility] [place] [address] AST enzyme act/vol 36 U/L Normal 10-40 [facility] ([place] Comment on above: Performed By: #### C MP, GFR, BHB, INSLN, CPEP ####[place] [address]#### IPROIN ####[place] [address] [place] [address] Bili Total 0.5 mg/dL Normal 0.2-1.0 [facility] ([place] Comment on above: Performed By: #### C MP, GFR, BHB, INSLN, CPEP ####[place] [address]#### IPROIN ####[facility] [place] [address] Calcium mass conc 9.2 mg/dL Normal 8.4-10.2 [facility] ([place] Comment on above: Performed By: #### C MP, GFR, BHB, INSLN, CPEP ####[place] [address]#### IPROIN ####[facility] [place] [address] Chloride molar conc 103 mmol/L Normal 98-107 [facility] ([place]) Comment on above: Performed By: #### C MP, GFR, BHB, INSLN, CPEP ####[place] [address]#### IPROIN ####[facility] [place] [id number] CO2 molar conc 30 mmol/L High 22-29 [facility] ([place] Comment on above: Performed By: #### C MP, GFR, BHB, INSLN, CPEP ####[place] [address]#### IPROIN ####[place] [address] [place] [address] Creatinine mass conc 0.75 mg/dL [facility] 0.55-1.02 [facility] Comment on above: Performed By: #### C MP, GFR, BHB, INSLN, CPEP ####[place] [address]#### IPROIN ####[place] [address] [place] [address] Electrolyte Balance 8.0 mEq/L Normal [facility] ([place] Comment on above: Performed By: #### C MP, GFR, BHB, INSLN, CPEP ####[place] [address]#### IPROIN ####[place] [address] Globulin Calculated mass conc (S) 3.6 G/dL Normal [facility] ([place] Comment on above: Performed By: #### C MP, GFR, BHB, INSLN, CPEP ####[place] [address]#### IPROIN ####[place] [address] [place] [address] Glucose mass conc 96 mg/dL Normal 70-105 [facility] ([place] Comment on above: Performed By: #### C MP, GFR, BHB, INSLN, CPEP ####[place] [address]#### IPROIN ####[place] [address] [place] [address] Potassium molar conc 4.3 mmol/L Normal 3.5-5.1 [facility] [place] Comment [place] above: Performed By: #### C MP, GFR, BHB, INSLN, CPEP ####[place] [address]#### IPROIN ####[facility] [place], [place] [address] Protein mass conc 7.3 G/dL Normal 6.4-8.2 [facility] ([place] Comment on above: Performed By: #### C MP, GFR, BHB, INSLN, CPEP ####[place] [address]#### IPROIN ####[facility] [place] [address] Sodium molar conc 141 mmol/L Normal 136-145 [facility] ([place] Comment on above: Performed By: #### C MP, GFR, BHB, INSLN, CPEP ####[place] [address]#### IPROIN ####[facility] [place] [address] Urea nitrogen mass conc 11 mg/dL Normal 7-18 [facility] ([place] Comment on above: Performed By: #### C MP, GFR, BHB, INSLN, CPEP ####[place] [address]#### IPROIN ####[facility] [place] [address] Urea nitrogen/Creatinine mass ratio 15 ratio Normal 7-27 [facility] ([place] Comment on above: Performed By: #### C MP, GFR, BHB, INSLN, CPEP ####[place] [address]#### IPROIN ####[facility] [place] [address] LIPIDon 10-11-2018 Cholesterol in HDL mass conc 32 mg/dL Low 40-60 [facility] ([place] Comment on above: Performed By: #### A 1C, TSH, LIPID, CMP, GFR ####[place] [address] Cholesterol in LDL mass conc 139 mg/dL High 0-130 [facility] ([place] Comment on above: Performed By: #### A 1C, TSH, LIPID, CMP, GFR ####[place] [address] Cholesterol mass conc 208 mg/dL High 0-200 [facility] ([place]) Comment on above: Result Comment: Chol esterol Reference Interval:Less than 200 [id number] Borderline high [id number] and above High risk Performed By: #### A 1C, TSH, LIPID, CMP, GFR ####[place] [address] Triglyceride mass conc 184 mg/dL High 0-150 [facility] ([place]) Comment on above: Result Comment: Trig lyceride Reference Interval:Less than 150 [id number] Borderline high [id number] High wkzz518 or higher Very high risk Performed By: #### A 1C, TSH, LIPID, CMP, GFR ####[place] [address] TSHon 10-11-2018 Thyrotropin Qn 1.54 mcIU/mL Normal 0.36-3.74 [facility] ([place] Comment on above: Performed By: #### A 1C, TSH, LIPID, CMP, GFR ####[place] [address] MISCNBon 05-23-2018 Misc. lab Send Out (Non Blood) See Comments Normal [facility] ([place] Comment on above: Result Comment: See separate report Performed By: #### M ISCNB ####[place] [address] [place], [place] [address] IPROINon 05-09-2018 Protein mass conc 6.1 g/dL Normal [facility] ([place] Comment on above: Result Comment: Refe rence range: <=8.0Unit: pmol/L(NOTE)INTERPRETIVE INFORMATION: Proinsulin, IntactProinsulin, Intact: Fasting intact proinsulin values above thereference interval indicate a possible insulin secretingpancreatic tumor (insulinoma) in patients with hypoglycemia.Fasting intact proinsulin values range from 3 to 50 pmol/L inpatients with untreated type 2 diabetes.Performed by [facility],[address] [place] [address],[place] [address] [employer], Peter Covington MD, Lab. Director Performed By: #### C MP, GFR, BHB, INSLN, CPEP ####[address] [address]#### IPROIN ####[facility] [place], [place] [address] CPEPon 05-04-2018 C-Peptide 5.6 ng/mL Normal 1.0-7.6 [facility] ([place] Comment on above: Performed By: #### C MP, GFR, BHB, INSLN, CPEP ####[place] [address]#### IPROIN ####[facility] [place], [place] [address] .GFRon 05-03-2018 GFR 103 ml/min/1.73sqm Normal [facility] ([place]) Comment on above: Result Comment: GFR Population [...] #### C MP, GFR, BHB, INSLN, CPEP ####[place] [address]#### IPROIN ####[facility] [place], [place] [address] GFR Non- 85 ml/min/1.73sqm Normal [facility] ([place] Comment on above: Result Comment: GFR Population [...] #### C MP, GFR, BHB, INSLN, CPEP ####[place] [address]#### IPROIN ####[place] [address] [place] [id number] [facility] 05-03-2018 B-Hydroxybutyrate 0.81 mg/dL Normal 0.20-2.81 [facility] ([place]) Comment on above: Performed By: #### C MP, GFR, BHB, INSLN, CPEP ####[place] [address]#### IPROIN ####[place] [id number] Albumin mass conc 3.2 G/dL Low 3.5-5.0 [facility] ([place] Comment on above: Performed By: #### C MP, GFR, BHB, INSLN, CPEP ####[place] [address]#### IPROIN ####[place] [address] [place] [address] Albumin/Globulin mass ratio 1.0 {ratio} Low 1.1-2.5 [facility] ([place] Comment on above: Performed By: #### C MP, GFR, BHB, INSLN, CPEP ####[place] [address]#### IPROIN ####[facility] [place] [address] ALP enzyme act/vol 54 U/L Normal 40-135 [facility] ([place] Comment on above: Performed By: #### C MP, GFR, BHB, INSLN, CPEP ####[place] [address]#### IPROIN ####[facility] [place], [place] [address] ALT enzyme act/vol 49 U/L High 10-35 [facility] ([place] Comment on above: Performed By: #### C MP, GFR, BHB, INSLN, CPEP ####[place] [address]#### IPROIN ####[facility] [place] [id number] AST enzyme act/vol 23 U/L Normal 10-40 [facility] ([place] Comment on above: Performed By: #### C MP, GFR, BHB, INSLN, CPEP ####[place] [address]#### IPROIN ####[place] [address] [place] [address] Bili Total 0.3 mg/dL Normal 0.2-1.0 [facility] ([place] Comment on above: Performed By: #### C MP, GFR, BHB, INSLN, CPEP ####[place] [address]#### IPROIN ####[facility] [place], [place] [address] Calcium mass conc 8.1 mg/dL Low 8.4-10.2 [facility] ([place] Comment on above: Performed By: #### C MP, GFR, BHB, INSLN, CPEP ####[place] [address]#### IPROIN ####[facility] [place] [address] Chloride molar conc 102 mmol/L Normal 98-107 [facility] ([place] Comment on above: Performed By: #### C MP, GFR, BHB, INSLN, CPEP ####[place] [address]#### IPROIN ####[facility] [place] [address] CO2 molar conc 26 mmol/L Normal 22-29 [facility] ([place] Comment on above: Performed By: #### C MP, GFR, BHB, INSLN, CPEP ####[place] [address]#### IPROIN ####[facility] [place] [address] Creatinine mass conc 0.77 mg/dL Normal 0.55-1.02 [facility] [place] Comment on above: Performed By: #### C MP, GFR, BHB, INSLN, CPEP ####[place] [address]#### IPROIN ####[place] [address] [place] [address] Electrolyte Balance 10.0 mEq/L Normal [facility] ([place] Comment on above: Performed By: #### C MP, GFR, BHB, INSLN, CPEP ####[place] [address]#### IPROIN ####[facility] [place] [address] Globulin Calculated mass conc (S) 3.3 G/dL Normal [facility] ([place] Comment on above: Performed By: #### C MP, GFR, BHB, INSLN, CPEP ####[place] [address]#### IPROIN ####[facility] [place] [address] Glucose mass conc 98 mg/dL Normal 70-105 [facility] ([place] Comment on above: Performed By: #### C MP, GFR, BHB, INSLN, CPEP ####[place] [address]#### IPROIN ####[facility] [place] [address] Potassium molar conc 3.7 mmol/L Normal 3.5-5.1 [facility] [place] Comment on above: Performed By: #### C MP, GFR, BHB, INSLN, CPEP ####[place] [address]#### IPROIN ####[place] [address] [place] [address] Protein mass conc 6.5 G/dL Normal 6.4-8.2 [facility] ([place] Comment on above: Performed By: #### C MP, GFR, BHB, INSLN, CPEP ####[place] [address]#### IPROIN ####[facility] [place] [address] Sodium molar conc 138 mmol/L Normal 136-145 [facility] ([place] Comment on above: Performed By: #### C MP, GFR, BHB, INSLN, CPEP ####[place] [address]#### IPROIN ####[place] [address] [place] [address] Urea nitrogen mass conc 9 mg/dL Normal 7-18 [facility] ([place] Comment on above: Performed By: #### C MP, GFR, BHB, INSLN, CPEP ####[place] [address]#### IPROIN ####[facility] [place] [address] Urea nitrogen/Creatinine mass ratio 12 ratio Normal 7-27 [facility] ([place] Comment on above: Performed By: #### C MP, GFR, BHB, INSLN, CPEP ####[place] [address]#### IPROIN ####[place] [address] [place] [address] INSLNon 05-03-2018 Insulin 38.50 mcIU/mL High 2.60-37.60 [facility] ([place] Comment on above: Performed By: #### C MP, GFR, BHB, INSLN, CPEP ####[place] [address]#### IPROIN ####[address] [place], [place] [address] Follow Up (General Surgery)o n 03-17-2018 Follow Up (General Surgery) Chief ComplaintDiaphragm dysfunction History of Present IllnessThimimi is a 37-year-old female I saw 3 years ago for the possibility of diaphragm dysfunction. At that time we assessed that both diaphragms moved. She had previous surgery on her left diaphragm as a child. Presently she is been able lose 40 pounds which is significantly helped her breathing. She still being followed locally by her cant gang sawyer. 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) Past Medical History History of continuous positive airway pressure (CPAP) therapy at home (V46.8) (Z99.89) Surgical History History of Lung Surgery History of Tubal Ligation Social History Never smoker Allergies [place] TABS red rash; Recorded By: Maye Washington; 03/17/2018 10:24:08 AM nabumetone Recorded By: Maye Washington; 03/17/2018 10:24:08 AM Penicillins Recorded By: Maye Washington; 03/17/2018 10:24:08 AM Current Meds Dicyclomine HCl - 10 MG Oral Capsule;Therapy: 03Mar2018 to Recorded Dispense: 28 Days ; #:112 CAPS; Refill: 0; RODNEY = N; Record; Last Updated By: Maye Washington; 03/17/2018 10:27:16 AM Drug [place] Uniluling Pentips 31G X 5 MM Miscellaneous;Therapy: 26Mar2017 [...] AM Montelukast Sodium 10 MG Oral Tablet;Therapy: 02Oct2017 to Recorded Dispense: 30 Days ; #:30 [...] Updated By: Maye Washington; 03/17/2018 10:38:53 AM [employer] No Coding Blood Gluc In Vitro Strip;Therapy: 17Aug2017 to Recorded Dispense: 25 Days ; #:100 STRP; Refill: 0; RODNEY = N; Record; Last Updated By: Maye Washington; 03/17/2018 10:38:37 AM [employer] Blood Glucose w/Device Kit;Therapy: 06Jul2017 to Recorded Dispense: 30 Days ; #:1 KIT; Refill: 0; RODNEY = N; Record; Last Updated By: Maye Washington; 03/17/2018 10:38:21 AM Sertraline HCl - 100 MG Oral Tablet;Therapy: 01Nov2017 to Recorded Dispense: 30 Days ; #:30 TABS; Refill: 0; RODNEY = N; Record; Last Updated By: Maye Washington; 03/17/2018 10:35:30 AM Spironolactone 25 MG Oral Tablet;Therapy: 90Fzl3322 to Recorded Dispense: 30 Days ; #:60 [...] 10:33:48 AM Vitals Vital Signs Recorded: 17Mar2018 10:98XNYqtflnvybhi18.1 FHeart Dlsa71Mizuljiu290Itkcyrbp j86Ufzayc0 ft 6 hfWsyugx590 lb 6 ozBMI Ganldngzqc08.67BSA Calculated2.25Pain Scale0 Results/Data Xray Chest 2 View PA + [id number] 10:04AMHector Kumari[Jan 25, 2015 7:51AM Hector Kumari] Reason: Unspecified for Xray Chest 2 View PA + Lateral Test NameResultFlagReferenceXr ay Chest 2 View PA + Lateral(Report)Interprete d by: TG STANLEY 02/05/15 08:49 EXAMINATION: Fluoroscopic [...] stated. This study has been interpreted at [facility] in [place], [place]. 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 Abnormal diaphragm with congenital operation. Based on [...] Dicyclomine HCl - 10 MG Oral Capsule;Therapy: 78Omg3629 to RecordedDrug [place] Unifine Pentips 31G X 5 MM Miscellaneous;Therapy: 26Mar2017 to RecordedFurosemide 20 MG Oral Tablet;Therapy: 01Nov2017 to RecordedGabapentin 100 MG Oral Capsule;Therapy: 01Nov2017 to RecordedLevemir FlexTouch 100 UNIT/ML Subcutaneous Solution Pen-injector;Therapy: 03Dec2017 to RecordedMetFORMIN HCl - 500 MG Oral Tablet;Therapy: 01Nov2017 to RecordedMetoprolol Succinate ER 200 MG Oral Tablet Extended Release 24 Hour;Therapy: 01Nov2017 to RecordedMontelukast Sodium 10 MG Oral Tablet;Therapy: 72Tmv6396 to RecordedNatural Vitamin D-3 5000 UNIT Oral Tablet;Therapy: 14Dec2017 to RecordedPantoprazole Sodium 40 MG Oral Tablet Delayed Release;Therapy: 25Oct2017 to RecordedPharmacist Choice Lancets Miscellaneous;Therapy: 17Aug2017 to RecordedProdigy No Coding Blood Gluc In Vitro Strip;Therapy: 17Aug2017 to RecordedProdigy Voice Blood Glucose w/Device Kit;Therapy: 06Jul2017 to RecordedSertraline HCl - 100 MG Oral Tablet;Therapy: 01Nov2017 to RecordedSpironolactone 25 MG Oral Tablet;Therapy: 41Tci9854 to RecordedTrokendi XR 50 MG Oral Capsule Extended Release 24 Hour;Therapy: 01Nov2017 to RecordedTrulicity 1.5 MG/0.5ML Subcutaneous Solution Pen-injector;Therapy: 01Nov2017 to RecordedUnspecified Medication; uses 3 liters oxygen daily and at night;Therapy: 17Mar2018 to RecordedVentolin HFA 108 (90 Base) MCG/ACT Inhalation Aerosol Solution;Therapy: 01Nov2017 to RecordedVerapamil HCl ER 240 MG Oral Tablet Extended Release;Therapy: 96Jvt4588 to RecordedVitamin C 500 MG Oral Tablet;Therapy: 27Kbc1314 to RecordedVitamin D3 5000 UNIT Oral Capsule;Therapy: 05Jan2018 to Recorded Normal [facility] Clinical Lists 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 Left ventricular Ejection fraction 65 % Invalid Interpretation Code [facility] Work Phone: Office Visit: postop surgery 11/09/1202-07-2013 Documentation of current medications (procedure) Done Invalid Interpretation Code [facility] Phone: Protein mass conc Done [facility] Phone: Tobacco smoking status NHIS never smoker [facility] Work Phone: Tobacco use HS never smoker Invalid Interpretation Code [facility] Phone: Vital Signs Date Time Vital Sign Value Performing Clinician Facility 03-28-2025 13:35-0400 Body height 172.[address] Kenneth Villanueva DO Work Phone: [facility] 03-28-2025 13:35-0400 Body mass index (BMI) [Ratio] 38.5 kg/m2 Dr. Kenneth Villanueva DO Work Phone: [facility] 03-28-2025 13:35-0400 Body weight 114.[address] Kenneth Villanueva DO Work Phone: [facility] 03-28-2025 13:35-0400 Diastolic blood pressure 73 mm[Hg] Dr. Kenneth Villanueva DO Work Phone: [facility] 03-28-2025 13:35-0400 Heart rate 83 /min Dr. Kenneth Villanueva DO Work Phone: [facility] 03-28-2025 13:35-0400 Inhaled oxygen flow rate 2 L/min Dr. Kenneth Villanueva DO Work Phone: [facility] 03-28-2025 13:35-0400 Respiratory rate 16 /min Dr. Kenneth Villanueva DO Work Phone: [facility] 03-28-2025 13:35-0400 SaO2% (BldA) [Mass fraction] 95 % Dr. Kenneth Villanueva DO Work Phone: [facility] 03-28-2025 13:35-0400 Systolic blood pressure 112 mm[Hg] Dr. Kenneth Villanueva DO Work Phone: [facility] 03-27-2025 11:51-0400 Body height 172.[address] Kenneth Villanueva DO Work Phone: [facility] 03-27-2025 11:40-0400 Body mass index (BMI) [Ratio] 38.5 kg/m2 Dr. Kenneth Villanueva DO Work Phone: [facility] 03-27-2025 11:40-0400 Body weight 114.[address] Kenneth Villanueva DO Work Phone: [facility] 03-27-2025 11:40-0400 Diastolic blood pressure 82 mm[Hg] Dr. Kenneth Villanueva DO Work Phone: [facility] 03-27-2025 11:40-0400 Systolic blood pressure 160 mm[Hg] Dr. Kenneth Villanueva DO Work Phone: [facility] 03-26-2025 21:31-0400 Body temperature 98.6 [degF] Dr. Kenneth Villanueva DO Work Phone: [facility] 03-26-2025 21:31-0400 Diastolic blood pressure 70 mm[Hg] Dr. Kenneth Villanueva DO Work Phone: [facility] 03-26-2025 21:31-0400 Heart rate 81 /min Dr. Kenneth Villanueva DO Work Phone: [facility] 03-26-2025 21:31-0400 Respiratory rate 16 /min Dr. Kenneth Villanueva DO Work Phone: [facility] 03-26-2025 21:31-0400 SaO2% (BldA) [Mass fraction] 94 % Dr. Kenneth Villanueva DO Work Phone: [facility] 03-26-2025 21:31-0400 Systolic blood pressure 120 mm[Hg] Dr. Kenneth Villanueva DO Work Phone: [facility] 03-26-2025 17:48-0400 Body height 172.[address] Kenneth Villanueva DO Work Phone: [facility] 03-26-2025 17:48-0400 Body mass index (BMI) [Ratio] 39.6 kg/m2 Dr. Kenneth Villanueva DO Work Phone: [facility] 03-26-2025 17:48-0400 Body weight 118.[address] Kenneth Villanueva DO Work Phone: [facility] 03-08-2025 08:34-0400 Body mass index (BMI) [Ratio] 39.5 kg/m2 Dr. Kenneth Villanueva DO Work Phone: [facility] 03-08-2025 08:34-0400 Body temperature 97.4 [degF] Dr. Kenneth Villanueva DO Work Phone: [facility] 03-08-2025 08:34-0400 Body weight 117.[address] Kenneth Villanueva DO Work Phone: [facility] 03-08-2025 08:34-0400 Diastolic blood pressure 94 mm[Hg] Dr. Kenneth Villanueva DO Work Phone: [facility] 03-08-2025 08:34-0400 Heart rate 76 /min Dr. Kenneth Villanueva DO Work Phone: [facility] 03-08-2025 08:34-0400 Inhaled oxygen flow rate 2 L/min Dr. Kenneth Villanueva DO Work Phone: [facility] 03-08-2025 08:34-0400 Respiratory rate 18 /min Dr. Kenneth Villanueva DO Work Phone: [facility] 03-08-2025 08:34-0400 SaO2% (BldA) [Mass fraction] 97 % Dr. Kenneth Villanueva DO Work Phone: [facility] 03-08-2025 08:34-0400 Systolic blood pressure 149 mm[Hg] Dr. Kenneth Villanueva DO Work Phone: [facility] 02-07-2025 18:45-0400 Body temperature 98 [degF] Dr. Kenneth Villanueva DO Work Phone: [facility] 02-07-2025 18:45-0400 Diastolic blood pressure 83 mm[Hg] Dr. Kenneth Villanueva DO Work Phone: [facility] 02-07-2025 18:45-0400 Heart rate 82 /min Dr. Kenneth Villanueva DO Work Phone: [facility] 02-07-2025 18:45-0400 Respiratory rate 18 /min Dr. Kenneth Villanueva DO Work Phone: [facility] 02-07-2025 18:45-0400 SaO2% (BldA) [Mass fraction] 100 % Dr. Kenneth Villanueva DO Work Phone: [facility] 02-07-2025 18:45-0400 Systolic blood pressure 129 mm[Hg] Dr. Kenneth Villanueva DO Work Phone: [facility] 02-07-2025 15:43-0400 Body height 172.[address] Kenneth Villanueva DO Work Phone: [facility] 02-07-2025 15:43-0400 Body mass index (BMI) [Ratio] 42.6 kg/m2 Dr. Kenneth Villanueva DO Work Phone: [facility] 02-07-2025 15:43-0400 Body weight 127.[address] Kenneth Villanueva DO Work Phone: [facility] 02-07-2025 15:43-0400 Inhaled oxygen flow rate 2 L/min Dr. Kenneth Villanueva DO Work Phone: [facility] 02-06-2025 11:19-0400 Body mass index (BMI) [Ratio] 40.1 kg/m2 Dr. Kenneth Villanueva DO Work Phone: [facility] 02-06-2025 11:19-0400 Body weight 119.[address] Kenneth Villanueva DO Work Phone: [facility] 02-06-2025 11:19-0400 Diastolic blood pressure 86 mm[Hg] Dr. Kenneth Villanueva DO Work Phone: [facility] 02-06-2025 11:19-0400 Systolic blood pressure 163 mm[Hg] Dr. Kenneth Villanueva DO Work Phone: [facility] 01-19-2025 12:30-0400 Body height 172.[address] Kenneth Villanueva DO Work Phone: [facility] 01-19-2025 12:30-0400 Body weight 115.[address] Kenneth Villanueva DO Work Phone: [facility] 01-19-2025 12:30-0400 Heart rate 91 /min Dr. Kenneth Villanueva DO Work Phone: [facility] 01-19-2025 12:30-0400 Inhaled oxygen flow rate 1 L/min Dr. Kenneth Villanueva DO Work Phone: [facility] 01-19-2025 12:30-0400 SaO2% (BldA) [Mass fraction] 96 % Dr. Kenneth Villanueva DO Work Phone: [facility] 01-19-2025 07:36-0400 Body mass index (BMI) [Ratio] 38.9 kg/m2 Dr. Kenneth Villanueva DO Work Phone: [facility] 01-19-2025 07:36-0400 Body weight 116.[address] Kenneth Villanueva DO Work Phone: [facility] 01-19-2025 07:36-0400 Diastolic blood pressure 89 mm[Hg] Dr. Kenneth Villanueva DO Work Phone: [facility] 01-19-2025 07:36-0400 Heart rate 92 /min Dr. Kenneth Villanueva DO Work Phone: [facility] 01-19-2025 07:36-0400 Respiratory rate 18 /min Dr. Kenneth Villanueva DO Work Phone: [facility] 01-19-2025 07:36-0400 SaO2% (BldA) [Mass fraction] 93 % Dr. Kenneth Villanueva DO Work Phone: [facility] 01-19-2025 07:36-0400 Systolic blood pressure 136 mm[Hg] Dr. Kenneth Villanueva DO Work Phone: [facility] 12-13-2024 08:03-0400 Body mass index (BMI) [Ratio] 39.9 kg/m2 Dr. Kenneth Villanueva DO Work Phone: [facility] 12-13-2024 08:03-0400 Body temperature 97.5 [degF] Dr. Kenneth Villanueva DO Work Phone: [facility] 12-13-2024 08:03-0400 Body weight 119.[address] Kenneth Villanueva DO Work Phone: [facility] 12-13-2024 08:03-0400 Diastolic blood pressure 104 mm[Hg] Dr. Kenneth Villanueva DO Work Phone: [facility] 12-13-2024 08:03-0400 Heart rate 94 /min Dr. Kenneth Villanueva DO Work Phone: [facility] 12-13-2024 08:03-0400 Inhaled oxygen flow rate 2 L/min Dr. Kenneth Villanueva DO Work Phone: [facility] 12-13-2024 08:03-0400 Respiratory rate 20 /min Dr. Kenneth Villanueva DO Work Phone: [facility] 12-13-2024 08:03-0400 SaO2% (BldA) [Mass fraction] 96 % Dr. Kenneth Villanueva DO Work Phone: [facility] 12-13-2024 08:03-0400 Systolic blood pressure 168 mm[Hg] Dr. Kenneth Villanueva DO Work Phone: [facility] 02-03-2024 07:58-0400 Body height 172.[address] Kenneth Villanueva Work Phone: [facility] 02-03-2024 07:58-0400 Body mass index (BMI) [Ratio] 39.4 kg/m2 Dr. Kenneth Villanueva Work Phone: [facility] 02-03-2024 07:58-0400 Body temperature 98.6 [degF] Dr. Kenneth Villanueva Work Phone: [facility] 02-03-2024 07:58-0400 Body weight 117.[address] Kenneth Villanueva Work Phone: [facility] 02-03-2024 07:58-0400 Diastolic blood pressure 107 mm[Hg] Dr. Kenneth Villanueva Work Phone: [facility] 02-03-2024 07:58-0400 Heart rate 88 /min Dr. Kenneth Villanueva Work Phone: [facility] 02-03-2024 07:58-0400 Inhaled oxygen flow rate 2 L/min Dr. Kenneth Villanueva Work Phone: [facility] 02-03-2024 07:58-0400 Respiratory rate 24 /min Dr. Kenneth Villanueva Work Phone: [facility] 02-03-2024 07:58-0400 SaO2% (BldA) [Mass fraction] 97 % Dr. Kenneth Villanueva Work Phone: [facility] 02-03-2024 07:58-0400 Systolic blood pressure 167 mm[Hg] Dr. Kenneth Villanueva Work Phone: [facility] 12-07-2023 08:57-0500 Body mass index (BMI) [Ratio] 39.6 kg/m2 Dr. Kenneth Villanueva Work Phone: [facility] 12-07-2023 08:57-0500 Body weight 118.[address] Kenneth Villanueva Work Phone: [facility] 12-07-2023 08:57-0500 Diastolic blood pressure 91 mm[Hg] Dr. Kenneth Villanueva Work Phone: [facility] 12-07-2023 08:57-0500 Heart rate 87 /min Dr. Kenneth Villanueva Work Phone: [facility] 12-07-2023 08:57-0500 Respiratory rate 18 /min Dr. Kenneth Villanueva Work Phone: [facility] 12-07-2023 08:57-0500 SaO2% (BldA) [Mass fraction] 97 % Dr. Kenneth Villanueva Work Phone: [facility] 12-07-2023 08:57-0500 Systolic blood pressure 142 mm[Hg] Dr. Kenneth Villanueva Work Phone: [facility] 11-26-2023 19:55-0500 Body temperature 98.3 [degF] Dr. Kenneth Villanueva Work Phone: [facility] 11-26-2023 19:55-0500 Diastolic blood pressure 106 mm[Hg] Dr. Kenneth Villanueva Work Phone: [facility] 11-26-2023 19:55-0500 Heart rate 74 /min Dr. Kenneth Villanueva Work Phone: [facility] 11-26-2023 19:55-0500 Respiratory rate 14 /min Dr. Kenneth Villanueva Work Phone: [facility] 11-26-2023 19:55-0500 SaO2% (BldA) [Mass fraction] 95 % Dr. Kenneth Villanueva Work Phone: [facility] 11-26-2023 19:55-0500 Systolic blood pressure 158 mm[Hg] Dr. Kenneth Villanueva Work Phone: [facility] 11-26-2023 16:25-0500 Body height 172.[address] Kenneth Villanueva Work Phone: [facility] 11-26-2023 16:25-0500 Body mass index (BMI) [Ratio] 40.5 kg/m2 Dr. Kenneth Villanueva Work Phone: [facility] 11-26-2023 16:25-0500 Body weight [address] Kenneth Villanueva Work Phone: [facility] 11-26-2023 15:52-0500 Body temperature 98.71 [degF] Nilda Cruz APRN.CNP Work Phone: [facility] 11-26-2023 15:52-0500 Body weight 122.38 kg Nilda Cruz KARATE INSTRUCTOR.ASIC ENGINEER Work Phone: [facility] 11-26-2023 15:52-0500 Diastolic blood pressure 112 mm[Hg] Nilda Cruz KARATE INSTRUCTOR.ASIC ENGINEER Work Phone: [facility] 11-26-2023 15:52-0500 Heart rate 98 /min Nilda Cruz KARATE INSTRUCTOR.ASIC ENGINEER Work Phone: [facility] 11-26-2023 15:52-0500 Respiratory rate 28 /min Nilda Cruz KARATE INSTRUCTOR.ASIC ENGINEER Work Phone: [facility] 11-26-2023 15:52-0500 SaO2% (BldA) [Mass fraction] 95 % Nilda Cruz KARATE INSTRUCTOR.ASIC ENGINEER Work Phone: [facility] 11-26-2023 15:52-0500 Systolic blood pressure 178 mm[Hg] Nilda Cruz KARATE INSTRUCTOR.ASIC ENGINEER Work Phone: [facility] 11-17-2023 07:46-0500 Body temperature 99.9 [degF] Dr. Kenneth Villanueva Work Phone: [facility] 11-17-2023 07:46-0500 Diastolic blood pressure 76 mm[Hg] Dr. Kenneth Villanueva Work Phone: [facility] 11-17-2023 07:46-0500 Heart rate 120 /min Dr. Kenneth Villanueva Work Phone: [facility] 11-17-2023 07:46-0500 Respiratory rate 16 /min Dr. Kenneth Villanueva Work Phone: [facility] 11-17-2023 07:46-0500 SaO2% (BldA) [Mass fraction] 99 % Dr. Kenneth Villanueva Work Phone: [facility] 11-17-2023 07:46-0500 Systolic blood pressure 164 mm[Hg] Dr. Kenneth Villanueva Work Phone: [facility] 11-17-2023 06:52-0500 Inhaled oxygen flow rate 2 L/min Dr. Kenneth Villanueva Work Phone: [facility] 11-17-2023 06:08-0500 Body height 175.[address] Kenneth Villanueva Work Phone: [facility] 11-17-2023 06:08-0500 Body mass index (BMI) [Ratio] 33.3 kg/m2 Dr. Kenneth Villanueva Work Phone: [facility] 11-17-2023 06:08-0500 Body weight 102.[address] Kenneth Villanueva Work Phone: [facility] 10-09-2023 02:34-0500 Diastolic blood pressure 74 mm[Hg] [facility] 10-09-2023 02:34-0500 Heart rate 79 /min [facility] 10-09-2023 02:34-0500 Systolic blood pressure 134 mm[Hg] [facility] 10-09-2023 00:58-0500 Respiratory rate 18 /min [facility] 10-08-2023 22:40-0500 Body height 172.72 cm [facility] 10-08-2023 22:40-0500 Body temperature 98 [degF] [facility] 10-08-2023 22:40-0500 Inhaled oxygen flow rate 3 L/min [facility] 10-08-2023 22:40-0500 SaO2% (BldA) [Mass fraction] 96 % [facility] 09-24-2023 08:43-0500 Body mass index (BMI) [Ratio] 40.1 kg/m2 [facility] 09-24-2023 08:43-0500 Body temperature 97.4 [degF] [facility] 09-24-2023 08:43-0500 Body weight 119.[address] [facility] 09-24-2023 08:43-0500 Diastolic blood pressure 98 mm[Hg] Kenneth Lalit [facility] 09-24-2023 08:43-0500 Heart rate 90 /min Kenneth Lalit [facility] 09-24-2023 08:43-0500 Inhaled oxygen flow rate 2 L/min Kenneth Lalit [facility] 09-24-2023 08:43-0500 Respiratory rate 20 /min Kenneth Lalit [facility] 09-24-2023 08:43-0500 SaO2% (BldA) [Mass fraction] 93 % Kenneth [facility] 09-24-2023 08:43-0500 Systolic blood pressure 184 mm[Hg] Kenneth Lalit [facility] 06-22-2023 08:55-0400 Body mass index (BMI) [Ratio] 39.5 kg/m2 Dr. Kenneth Villanueva Work Phone: [facility] 06-22-2023 08:55-0400 Body weight 117.[address] Kenneth Villanueva Work Phone: [facility] 06-22-2023 08:55-0400 Diastolic blood pressure 86 mm[Hg] Dr. Kenneth Villanueva Work Phone: [facility] 06-22-2023 08:55-0400 Heart rate 77 /min Dr. Kenneth Villanueva Work Phone: [facility] 06-22-2023 08:55-0400 Respiratory rate 18 /min Dr. Kenneth Villanueva Work Phone: [facility] 06-22-2023 08:55-0400 SaO2% (BldA) [Mass fraction] 93 % Dr. Kenneth Villanueva Work Phone: [facility] 06-22-2023 08:55-0400 Systolic blood pressure 136 mm[Hg] Dr. Kenneth Villanueva Work Phone: [facility] 05-27-2023 08:21-0400 Body mass index (BMI) [Ratio] 38.7 kg/m2 Dr. Kenneth Villanueva Work Phone: [facility] 05-27-2023 08:21-0400 Body temperature 96.8 [degF] Dr. Kenneth Villanueva Work Phone: [facility] 05-27-2023 08:21-0400 Body weight 118.[address] Kenneth Villanueva Work Phone: [facility] 05-27-2023 08:21-0400 Diastolic blood pressure 96 mm[Hg] Dr. Kenneth Villanueva Work Phone: [facility] 05-27-2023 08:21-0400 Heart rate 86 /min Dr. Kenneth Villanueva Work Phone: [facility] 05-27-2023 08:21-0400 Inhaled oxygen flow rate 2 L/min Dr. Kenneth Villanueva Work Phone: [facility] 05-27-2023 08:21-0400 Respiratory rate 22 /min Dr. Kenneth Villanueva Work Phone: [facility] 05-27-2023 08:21-0400 SaO2% (BldA) [Mass fraction] 94 % Dr. Kenneth Villanueva Work Phone: [facility] 05-27-2023 08:21-0400 Systolic blood pressure 194 mm[Hg] Dr. Kenneth Villanueva Work Phone: [facility] 04-29-2023 11:03-0400 Body height 172.[address] [facility] 04-27-2023 19:33-0400 Diastolic blood pressure 102 mm[Hg] Kenneth Villanueva [facility] 04-27-2023 19:33-0400 Heart rate 136 /min Kenneth STEIN [facility] 04-27-2023 19:33-0400 Respiratory rate 24 /min Kenneth Villanueva [facility] 04-27-2023 19:33-0400 SaO2% (BldA) [Mass fraction] 97 % Kenneth [facility] 04-27-2023 19:33-0400 Systolic blood pressure 169 mm[Hg] Kenneth [facility] 04-27-2023 16:53-0400 Inhaled oxygen flow rate 3 L/min Kenneth [facility] 04-27-2023 16:49-0400 Body mass index (BMI) [Ratio] 39.2 kg/m2 Kenneth [facility] 04-27-2023 16:49-0400 Body temperature 98.6 [degF] Kenneth [facility] 04-27-2023 16:49-0400 Body weight 116.9 kg Kenneth [facility] 02-19-2023 13:41-0400 Body mass index (BMI) [Ratio] 37.8 kg/m2 Kenneth [facility] 02-19-2023 13:41-0400 Body weight 115.83 kg [facility] 02-19-2023 13:41-0400 Diastolic blood pressure 108 mm[Hg] Kenneth [facility] 02-19-2023 13:41-0400 Systolic blood pressure 168 mm[Hg] Kenneth [facility] 02-02-2023 16:21-0400 Body temperature 98.8 [degF] Kenneth [facility] 02-02-2023 16:21-0400 Diastolic blood pressure 106 mm[Hg] Kenneth [facility] 02-02-2023 16:21-0400 Heart rate 87 /min Kenneth [facility] 02-02-2023 16:21-0400 Inhaled oxygen flow rate 2 L/min [facility] 02-02-2023 16:21-0400 Respiratory rate 16 /min [facility] 02-02-2023 16:21-0400 SaO2% (BldA) [Mass fraction] 100 % [facility] 02-02-2023 16:21-0400 Systolic blood pressure 174 mm[Hg] Kenneth [facility] 02-02-2023 12:30-0400 Body height 175.[address] [facility] 02-02-2023 12:30-0400 Body mass index (BMI) [Ratio] 36.6 kg/m2 Kenneth [facility] 02-02-2023 12:30-0400 Body weight 112 kg Kenneth [facility] 01-29-2023 08:08-0400 Body mass index (BMI) [Ratio] 37.7 kg/m2 Kenneth [facility] 01-29-2023 08:08-0400 Body weight 115.77 kg Kenneth [facility] 01-29-2023 08:08-0400 Diastolic blood pressure 83 mm[Hg] Kenneth [facility] 01-29-2023 08:08-0400 Systolic blood pressure 135 mm[Hg] Kenneth [facility] 01-27-2023 09:06-0400 Diastolic blood pressure 110 mm[Hg] Kenneth [facility] 01-27-2023 09:06-0400 Systolic blood pressure 181 mm[Hg] Kenneth [facility] 01-27-2023 07:52-0400 Body mass index (BMI) [Ratio] 36.9 kg/m2 [facility] 01-27-2023 07:52-0400 Body temperature 97.3 [degF] Kenneth [facility] 01-27-2023 07:52-0400 Body weight 113.39 kg Kenneth [facility] 01-27-2023 07:52-0400 Heart rate 91 /min Kenneth [facility] 01-27-2023 07:52-0400 Inhaled oxygen flow rate 2 L/min [facility] 01-27-2023 07:52-0400 Respiratory rate 18 /min [facility] 01-27-2023 07:52-0400 SaO2% (BldA) [Mass fraction] 96 % [facility] 01-22-2023 09:34-0400 Body mass index (BMI) [Ratio] 37 kg/m2 [facility] 01-22-2023 09:34-0400 Body weight 113.85 kg [facility] 01-22-2023 09:34-0400 Diastolic blood pressure 94 mm[Hg] [facility] 01-22-2023 09:34-0400 Heart rate 93 /min [facility] 01-22-2023 09:34-0400 Respiratory rate 18 /min [facility] 01-22-2023 09:34-0400 SaO2% (BldA) [Mass fraction] 97 % [facility] 01-22-2023 09:34-0400 Systolic blood pressure 150 mm[Hg] [facility] 11-27-2022 12:41-0500 Diastolic blood pressure 90 mm[Hg] [facility] 11-27-2022 12:41-0500 Heart rate 82 /min [facility] 11-27-2022 12:41-0500 Respiratory rate 19 /min [facility] 11-27-2022 12:41-0500 SaO2% (BldA) [Mass fraction] 96 % [facility] 11-27-2022 12:41-0500 Systolic blood pressure 174 mm[Hg] [facility] 11-27-2022 12:30-0500 Inhaled oxygen flow rate 2 L/min [facility] 11-27-2022 09:32-0500 Body height 175.26 cm [facility] 11-27-2022 09:32-0500 Body mass index (BMI) [Ratio] 38.7 kg/m2 [facility] 11-27-2022 09:32-0500 Body temperature 96 [degF] [facility] 11-27-2022 09:32-0500 Body weight 118.93 kg [facility] 11-09-2022 09:50-0500 Body height 175.26 cm [facility] 11-09-2022 09:50-0500 Body mass index (BMI) [Ratio] 39.6 kg/m2 [facility] 11-09-2022 09:50-0500 Body weight 121.78 kg [facility] 11-09-2022 09:50-0500 Diastolic blood pressure 86 mm[Hg] [facility] 11-09-2022 09:50-0500 Systolic blood pressure 132 mm[Hg] [facility] 2022 12:44-0500 Body height 175.26 cm [facility] 2022 12:44-0500 Body weight 120 kg [facility] 2022 12:44-0500 Heart rate 106 /min [facility] 2022 12:44-0500 Inhaled oxygen flow rate 2 L/min [facility] 2022 12:44-0500 SaO2% (BldA) [Mass fraction] 96 % [facility] 10-28-2022 07:02-0500 Body mass index (BMI) [Ratio] 42.7 kg/m2 [facility] 10-28-2022 07:02-0500 Body temperature 96.2 [degF] [facility] 10-28-2022 07:02-0500 Body weight 120.2 kg [facility] 10-28-2022 07:02-0500 Diastolic blood pressure 77 mm[Hg] [facility] 10-28-2022 07:02-0500 Heart rate 91 /min [facility] 10-28-2022 07:02-0500 Inhaled oxygen flow rate 4 L/min [facility] 10-28-2022 07:02-0500 Respiratory rate 20 /min [facility] 10-28-2022 07:02-0500 SaO2% (BldA) [Mass fraction] 97 % [facility] 10-28-2022 07:02-0500 Systolic blood pressure 135 mm[Hg] [facility] 10-26-2022 12:46-0500 Body mass index (BMI) [Ratio] 44.6 kg/m2 [facility] 10-26-2022 12:46-0500 Body weight 125.64 kg [facility] 10-26-2022 12:46-0500 Diastolic blood pressure 82 mm[Hg] [facility] 10-26-2022 12:46-0500 Systolic blood pressure 140 mm[Hg] [facility] 10-26-2022 10:55-0500 Body mass index (BMI) [Ratio] 40.1 kg/m2 [facility] 10-26-2022 10:55-0500 Body weight 119.74 kg [facility] 10-26-2022 10:55-0500 Diastolic blood pressure 91 mm[Hg] [facility] 10-26-2022 10:55-0500 Heart rate 94 /min [facility] 10-26-2022 10:55-0500 Respiratory rate 18 /min [facility] 10-26-2022 10:55-0500 SaO2% (BldA) [Mass fraction] 95 % [facility] 10-26-2022 10:55-0500 Systolic blood pressure 146 mm[Hg] [facility] 10-20-2022 12:55-0500 Diastolic blood pressure 102 mm[Hg] [facility] 10-20-2022 12:55-0500 Heart rate 95 /min [facility] 10-20-2022 12:55-0500 Respiratory rate 18 /min [facility] 10-20-2022 12:55-0500 SaO2% (BldA) [Mass fraction] 98 % [facility] 10-20-2022 12:55-0500 Systolic blood pressure 145 mm[Hg] [facility] 10-20-2022 10:12-0500 Inhaled oxygen flow rate 3 L/min [facility] 10-20-2022 07:53-0500 Body height 167.64 cm [facility] 10-20-2022 07:53-0500 Body mass index (BMI) [Ratio] 42.8 kg/m2 [facility] 10-20-2022 07:53-0500 Body temperature 98.5 [degF] [facility] 10-20-2022 07:53-0500 Body weight 120.5 kg [facility] 10-08-2022 07:54-0500 Body mass index (BMI) [Ratio] 42.5 kg/m2 [facility] 10-08-2022 07:54-0500 Body temperature 99.3 [degF] [facility] 10-08-2022 07:54-0500 Body weight 127 kg [facility] 10-08-2022 07:54-0500 Diastolic blood pressure 128 mm[Hg] [facility] 10-08-2022 07:54-0500 Heart rate 114 /min [facility] 10-08-2022 07:54-0500 Inhaled oxygen flow rate 4 L/min [facility] 10-08-2022 07:54-0500 Respiratory rate 28 /min [facility] 10-08-2022 07:54-0500 SaO2% (BldA) [Mass fraction] 93 % [facility] 10-08-2022 07:54-0500 Systolic blood pressure 196 mm[Hg] [facility] 09-22-2022 10:03-0500 Body mass index (BMI) [Ratio] 41.2 kg/m2 [facility] 09-22-2022 10:03-0500 Body weight 122.92 kg [facility] 09-22-2022 10:03-0500 Diastolic blood pressure 149 mm[Hg] [facility] 09-22-2022 10:03-0500 Heart rate 89 /min [facility] 09-22-2022 10:03-0500 Respiratory rate 20 /min [facility] 09-22-2022 10:03-0500 Systolic blood pressure 209 mm[Hg] [facility] 09-11-2022 08:09-0500 Body height 172.72 cm [facility] Work Phone: 09-11-2022 08:09-0500 Body mass index (BMI) [Ratio] 43.2 kg/m2 [facility] 09-11-2022 08:09-0500 Body temperature 97.5 [degF] [facility] 09-11-2022 08:09-0500 Body weight 129.1 kg [facility] 09-11-2022 08:09-0500 Diastolic blood pressure 124 mm[Hg] [facility] 09-11-2022 08:09-0500 Heart rate 100 /min [facility] 09-11-2022 08:09-0500 Inhaled oxygen flow rate 3 L/min [facility] 09-11-2022 08:09-0500 Respiratory rate 18 /min [facility] 09-11-2022 08:09-0500 SaO2% (BldA) [Mass fraction] 99 % [facility] 09-11-2022 08:09-0500 Systolic blood pressure 188 mm[Hg] [facility] 08-14-2022 08:18-0500 Body height 175.26 cm [facility] Work Phone: 08-14-2022 08:18-0500 Body mass index (BMI) [Ratio] 40.1 kg/m2 [facility] 08-14-2022 08:18-0500 Body weight 123.37 kg [facility] 08-14-2022 08:18-0500 Diastolic blood pressure 103 mm[Hg] [facility] 08-14-2022 08:18-0500 Heart rate 92 /min [facility] 08-14-2022 08:18-0500 Respiratory rate 18 /min [facility] 08-14-2022 08:18-0500 SaO2% (BldA) [Mass fraction] 98 % [facility] 08-14-2022 08:18-0500 Systolic blood pressure 192 mm[Hg] [facility] 07-16-2022 12:37-0400 Body mass index (BMI) [Ratio] 41.1 kg/m2 [facility] 07-16-2022 12:37-0400 Body temperature 97.3 [degF] [facility] 07-16-2022 12:37-0400 Body weight 126.15 kg [facility] 07-16-2022 12:37-0400 Diastolic blood pressure 98 mm[Hg] [facility] 07-16-2022 12:37-0400 Heart rate 99 /min [facility] 07-16-2022 12:37-0400 Inhaled oxygen flow rate 3 L/min [facility] 07-16-2022 12:37-0400 Respiratory rate 20 /min [facility] 07-16-2022 12:37-0400 SaO2% (BldA) [Mass fraction] 95 % [facility] 07-16-2022 12:37-0400 Systolic blood pressure 170 mm[Hg] [facility] 07-08-2022 11:38-0400 Diastolic blood pressure 139 mm[Hg] [facility] 07-08-2022 11:38-0400 Systolic blood pressure 196 mm[Hg] [facility] 07-08-2022 08:22-0400 Body mass index (BMI) [Ratio] 40.8 kg/m2 [facility] 07-08-2022 08:22-0400 Body weight 125.64 kg [facility] 07-08-2022 08:22-0400 Heart rate 96 /min [facility] 07-08-2022 08:22-0400 Inhaled oxygen flow rate 3 L/min [facility] 07-08-2022 08:22-0400 Respiratory rate 22 /min [facility] 07-08-2022 08:22-0400 SaO2% (BldA) [Mass fraction] 92 % [facility] 06-25-2022 09:10-0400 Body height 175.26 cm [facility] Work Phone: 06-25-2022 09:10-0400 Body weight 122.46 kg [facility] 06-25-2022 09:10-0400 Heart rate 111 /min [facility] 06-25-2022 09:10-0400 Inhaled oxygen flow rate 2 L/min [facility] 06-25-2022 09:10-0400 SaO2% (BldA) [Mass fraction] 94 % [facility] 06-10-2022 09:44-0400 Body height 175.26 cm [facility] Work Phone: 06-10-2022 09:44-0400 Body mass index (BMI) [Ratio] 40.3 kg/m2 [facility] Work Phone: 06-10-2022 09:44-0400 Body weight 123.83 kg [facility] Work Phone: 06-10-2022 09:44-0400 Diastolic blood pressure 106 mm[Hg] [facility] Work Phone: 06-10-2022 09:44-0400 Heart rate 95 /min [facility] Work Phone: 06-10-2022 09:44-0400 Respiratory rate 20 /min [facility] Work Phone: 06-10-2022 09:44-0400 SaO2% (BldA) [Mass fraction] 92 % [facility] Work Phone: 06-10-2022 09:44-0400 Systolic blood pressure 181 mm[Hg] [facility] Work Phone: 03-16-2022 14:23-0400 Body mass index (BMI) [Ratio] 40.1 kg/m2 [facility] Work Phone: 03-16-2022 14:23-0400 Body temperature 97.8 [degF] [facility] Work Phone: 03-16-2022 14:23-0400 Body weight 123.37 kg [facility] Work Phone: 03-16-2022 14:23-0400 Diastolic blood pressure 98 mm[Hg] [facility] Work Phone: 03-16-2022 14:23-0400 Heart rate 74 /min [facility] Work Phone: 03-16-2022 14:23-0400 Inhaled oxygen flow rate 2 L/min [facility] Work Phone: 03-16-2022 14:23-0400 Respiratory rate 17 /min [facility] Work Phone: 03-16-2022 14:23-0400 SaO2% (BldA) [Mass fraction] 95 % [facility] Work Phone: 03-16-2022 14:23-0400 Systolic blood pressure 164 mm[Hg] [facility] Work Phone: 02-07-2013 10:21-0400 BMI (Body Mass Index) 38.93 kg/m2 [facility] [facility] Work Phone: 02-07-2013 10:21-0400 Body Temperature 97.5 [degF] [facility] Work Phone: 02-07-2013 10:21-0400 BP Diastolic 86 mm[Hg] [facility] Work Phone: 02-07-2013 10:21-0400 BP Systolic 138 mm[Hg] [facility] Work Phone: 02-07-2013 10:-0400 BSA (Body Surface Area) 2.28 m2 [facility] Work Phone: 02-07-2013 10:21-0400 Pulse (Heart Rate) 78 /min [facility] Work Phone: 02-07-2013 10:-0400 Respiratory Rate 16 /min [facility] Work Phone: 02-07-2013 10:21-0400 Weight 116.58 kg [facility] Work Phone: 10-18-2012 11:21-0500 Height 173.35 cm [facility] Work Phone: Encounters Encounter Date Encounter Type Care Provider Facility Start: 03-28-2025 End: 03-28-2025 Franklyn Clement AB INITIO ETL DEVELOPER-C -[facility] Work Phone: Start: 03-28-2025 End: 03-28-2025 ambulatory Norma Dunn NP Facility:[facility] Start: 03-28-2025 Norma Dunn AB INITIO ETL DEVELOPER-C -[facility] Work Phone: Start: 03-27-2025 End: 03-27-2025 Felicia Gonzalez AB INITIO ETL DEVELOPER-C -[facility] Work Phone: Start: 03-27-2025 End: 03-27-[address] Kenneth Villanueva DO Work Phone: [facility] Work Phone: Start: 03-26-2025 End: 03-26-2025 Dr. Kenneth Villanueva DO Work Phone: -Emergency Department Work Phone: Start: 03-26-2025 End: 03-26-2025 Emergency department patient visit Dr. Kenneth Villanueva DO Work Phone: [facility] Work Phone: Start: 03-08-2025 End: 03-08-2025 Patient encounter procedure Flori GARCIAC -[facility] Work Phone: Start: 03-08-2025 End: 03-08-2025 Flori GARCIAC -[facility] Work Phone: Start: 03-08-2025 End: 03-08-[address] Kenneth Villanueva DO Work Phone: [facility] Work Phone: Start: 02-07-2025 Encounter for gynecological examination (general) (routine) without abnormal findings Felicia Gonzalez NP [facility] Start: 02-07-2025 End: 02-07-2025 Dr. [facility] Work Phone: Start: 02-07-2025 End: 02-07-2025 Emergency department patient visit Dr. Kenneth Villanueva DO Work Phone: -Emergency Department Work Phone: Start: 02-06-2025 End: 02-06-[address] Kenneth Villanueva DO Work Phone: [facility] Work Phone: Start: 02-06-2025 End: 02-06-2025 Patient encounter procedure Felicia [place] AB INITIO ETL DEVELOPER-C -Laboratory, Specimen Work Phone: Start: 02-06-2025 End: 02-06-2025 Felicia Gonzalez AB INITIO ETL DEVELOPER-C -Laboratory Specimen Work Phone: Start: 02-06-2025 End: 02-06-2025 Patient encounter procedure Felicia Gonzalez AB INITIO ETL DEVELOPER-C -[facility] Work Phone: Start: 02-06-2025 End: 02-06-2025 Patient encounter status Felicia Gonzalez AB INITIO ETL DEVELOPER-C [facility] Start: 02-06-2025 End: 02-06-2025 Felicia Gonzalez AB INITIO ETL DEVELOPER-C -[facility] Work Phone: Start: 02-06-2025 End: 02-06-2025 ambulatory [facility] Facility[facility] Start: 02-06-2025 End: 02-06-2025 ambulatory [facility] Facility:[facility] Start: 01-26-2025 ambulatory Flori Lee AB INITIO ETL DEVELOPER Fac ility:[facility] Start: 01-26-2025 Non-patient / Non-visit Dr. Dominick fair DO -[facility] Start: 01-26-2025 Dr. Dominick Mcclendon DO -[facility] Start: 01-19-2025 End: 01-19-[address] Kenneth Villanueva DO Work Phone: [facility] Work Phone: Start: 01-19-2025 End: 01-19-2025 Patient encounter procedure Flori Lee AB INITIO ETL DEVELOPER-C -Pulmonary Services/Neurology Work Phone: Start: 01-19-2025 End: 01-19-2025 Flori Lee NP-C -Pulmonary Services/Neurology Work Phone: Start: 01-19-2025 End: 01-19-2025 Patient encounter procedure Kianna Desir PA -[facility] Work Phone: Start: 01-19-2025 End: 01-19-2025 Kianna Desir [place] -[facility] Work Phone: Start: 01-19-2025 End: 01-19-2025 ambulatory Kianna BENJAMIN Facility:[facility] Start: 01-19-2025 End: 01-19-2025 ambulatory Flori Lee AB INITIO ETL DEVELOPER Facility:[facility] Start: 01-17-2025 End: 01-17-2025 Patient encounter procedure Flori Lee AB INITIO ETL DEVELOPER-C -Pulmonary Services/Neurology Work Phone: Start: 01-17-2025 End: 01-17-2025 Flori Lee AB INITIO ETL DEVELOPER-C -Pulmonary Services/Neurology Work Phone: Start: 01-17-2025 End: 01-17-2025 ambulatory Flori Lee AB INITIO ETL DEVELOPER Facility:[facility] Start: 01-02-2025 End: 01-02-[address] Kenneth Villanueva DO -Laboratory Work Phone: Start: 01-02-2025 End: 01-02-2025 Dr. Kenneth Villanueva DO -Laboratory Work Phone: Start: 01-02-2025 End: 01-02-2025 ambulatory Kenneth Villanueva Facility:[facility] Start: 12-13-2024 End: 12-13-2024 Patient encounter procedure Flori Lee AB INITIO ETL DEVELOPER-C -[facility] Work Phone: Start: 12-13-2024 End: 12-13-2024 Flori Lee AB INITIO ETL DEVELOPER-C -[facility] Work Phone: Start: 12-13-2024 End: 12-13-2024 ambulatory Flori Lee AB INITIO ETL DEVELOPER Facility:[facility] Start: 10-11-2024 End: 10-11-[address] Evon Ryan MD -Laboratory Work Phone: Start: 10-11-2024 End: 10-11-2024 ambulatory Evon Ryan Facility:[facility] Start: 07-25-2024 [facility] Start: 07-25-2024 End: 07-25-[address] [facility] Facility:[facility] Start: 07-18-2024 End: 07-18-2024 ambulatory Ketan Nayak Facility:[facility] Start: 06-20-2024 End: 06-20-2024 Patient encounter procedure Rajiv Buffy Work Phone: Podiatry Comment on above: Diabetic polyneuropa thy associated with type 2 diabetes mellitus (HCC) (Primary Dx); Acquired hallux valgus, unspecified laterality Start: 06-20-2024 End: 06-20-2024 ambulatory RAJIV BAER Facility:[facility] Start: 06-20-2024 End: 06-20-2024 Subsequent hospital visit by physician Xr [facility] Work Phone: Radiology Comment on above: Pain [R52] Start: 06-13-2024 End: 06-13-2024 ambulatory Flori Lee NP Facility:[facility] Start: 06-01-2024 End: 06-01-2024 ambulatory Kenneth Villanueva Facility:[facility] Start: 02-04-2024 End: 02-04-[address] Kenneth Villanueva Work Phone: [facility] Work Phone: Start: 02-04-2024 End: 02-04-[address] Kenneth Villanueva Work Phone: [facility]-Laboratory, Specimen Work Phone: Start: 02-03-2024 End: 02-03-[address] Kenneth Villanueva Work Phone: [facility] Pulmonary Medicine Work Phone: Start: 12-07-2023 End: 12-07-[address] Kenneth Villanueva Work Phone: [facility] Work Phone: Start: 11-26-2023 End: 11-26-2023 Emergency department patient visit Dr. Kenneth Villanueva Work Phone: [facility]-Emergency Department Work Phone: Start: 11-26-2023 End: 11-26-2023 Patient encounter procedure Nilda Cruz [facility] Work Phone: [facility] Comment on above: Headache, unspecifie d headache type (Primary Dx); SOB (shortness of breath) Start: 11-17-2023 End: 11-17-2023 Emergency department patient visit Dr. Kenneth Villanueva Work Phone: [facility]-Emergency Department Work Phone: Start: 10-08-2023 End: 10-09-2023 Emergency department patient visit Kenneth STEIN [facility]-Emergency Department Work Phone: Start: 09-24-2023 End: 09-24-2023 Patient encounter procedure Kenneth STEIN [facility]-Pulmonary Medicine [facility] Work Phone: Start: 09-14-2023 Non-patient / Non-visit Kenneth STEIN [facility] Start: 09-13-2023 End: 09-13-2023 ambulatory Kenneth STEIN [facility] Work Phone: Start: 09-13-2023 End: 09-13-2023 Patient encounter procedure Kenneth STEIN [facility]-Pulmonary Services/Neurology Work Phone: Start: 09-01-2023 End: 09-01-2023 Patient encounter procedure Kenneth STEIN [facility]-Laboratory Work Phone: Start: 07-28-2023 End: 07-28-[address] Kenneth Villanueva Work Phone: [facility] Work Phone: Start: 07-28-2023 End: 07-28-[address] Kenneth Villanueva Work Phone: [facility] Work Phone: Start: 07-19-2023 End: 07-19-[address] Kenneth Villanueva Work Phone: [facility]-Occupational Therapy Work Phone: Start: 06-22-2023 End: 06-22-[address] Kenneth Villanueva Work Phone: [facility] Work Phone: Start: 05-31-2023 End: 05-31-2023 Patient encounter procedure Steven Cunningham MD Work Phone: Orthopaedics Comment on above: Closed displaced fra cture of middle phalanx of right little finger with routine healing, subsequent encounter (Primary Dx); Morbid obesity (HCC) Start: 05-31-2023 End: 05-31-2023 Subsequent hospital visit by physician Xr [facility] Work Phone: Radiology Comment on above: Pain of finger of ri ght hand [M79.644] Start: 05-27-2023 End: 05-27-[address] Kenneth Villanueva Work Phone: [facility]-Pulmonary Medicine [facility] Work Phone: Start: 05-26-2023 Orders Only Steven Cunningham MD Work Phone: Orthopaedics Comment on above: Pain of finger of ri ght hand (Primary Dx) Start: 05-14-2023 End: 05-14-2023 [facility] Start: 05-14-2023 End: 05-14-2023 Patient encounter procedure Kenneth Villanueva [facility]Outpatient Breast Imaging Work Phone: Start: 05-10-2023 End: 05-10-2023 ambulatory Kenneth [facility] Work Phone: Start: 05-10-2023 End: 05-10-2023 Patient encounter procedure Kenneth Villanueva [facility]-Pulmonary Services/Neurology Work Phone: Start: 05-07-2023 End: 05-07-2023 Patient encounter procedure Kenneth STEIN [facility] Work Phone: Start: 04-30-2023 End: 04-30-2023 Patient encounter procedure Kenneth STEIN [facility] Start: 04-27-2023 End: 04-27-2023 Emergency department patient visit Kenneth STEIN [facility]-Emergency Department Work Phone: Start: 02-19-2023 End: 02-19-2023 Patient encounter procedure Kenneth STEIN [facility]-Laboratory, Specimen Work Phone: Start: 02-19-2023 End: 02-19-2023 Patient encounter procedure Kenneth STEIN [facility] Work Phone: Start: 02-02-2023 Non-patient / Non-visit Kenneth dunn [facility] Start: 02-02-2023 End: 02-02-2023 Non-patient / Non-visit Kenneth STEIN [facility] Work Phone: Start: 02-02-2023 End: 02-02-2023 Admission to same day surgery center Kenneth STEIN [facility]-Surgical Day Care Start: 02-02-2023 End: 02-02-2023 ambulatory Kenneth Villanueva [facility] Work Phone: Start: 01-29-2023 End: 01-29-2023 ambulatory Kenneth Villanueva [facility] Work Phone: Start: 01-29-2023 End: 01-29-2023 Patient encounter procedure Kenneth STEIN [facility]-Laboratory, OP Pavilion Start: 01-29-2023 End: 01-29-2023 Patient encounter procedure Kenneth STEIN [facility] Start: 01-27-2023 End: 01-27-2023 Patient encounter procedure Kenneth STEIN [facility]-Pulmonary Medicine [facility] Start: 01-22-2023 End: 01-22-2023 Patient encounter procedure Kenneth STEIN [facility] Start: 11-27-2022 End: 11-27-2022 Emergency department patient visit Kenneth [facility]Emergency Department Start: 11-09-2022 End: 11-09-2022 ambulatory [facility] Work Phone: Start: 11-09-2022 End: 11-09-2022 Patient encounter procedure Kenneth [facility]-Laboratory, Specimen Start: 11-09-2022 End: 11-09-2022 Patient encounter procedure [facility] Start: 11-04-2022 End: 11-04-2022 ambulatory [facility] Work Phone: Start: 11-04-2022 End: 11-04-2022 Patient encounter procedure [facility]-Outpatient Pavilion Ultrasound Start: 10-31-2022 Non-patient / Non-visit [facility] Start: 2022 End: 2022 ambulatory [facility] Work Phone: Start: 2022 End: 2022 Patient encounter procedure [facility]-Pulmonary Services/Neurology Start: 10-29-2022 ambulatory Facility:[facility] Start: 10-28-2022 End: 10-28-2022 Patient encounter procedure [facility]-Pulmonary Medicine [facility] Start: 10-26-2022 End: 10-26-2022 ambulatory [facility] Work Phone: Start: 10-26-2022 End: 10-26-2022 Patient encounter procedure [facility]-Laboratory, Specimen Start: 10-26-2022 End: 10-26-2022 Patient encounter procedure [facility] Start: 10-26-2022 End: 10-26-2022 Patient encounter procedure [facility] Start: 10-20-2022 End: 10-20-2022 Emergency department patient visit Kenneth [facility]Emergency Department Start: 10-08-2022 End: 10-08-2022 ambulatory Kenneth [facility] Work Phone: Start: 10-08-2022 End: 10-08-2022 Patient encounter procedure Kenneth [facility]-Cardiovascula r Services Start: 09-22-2022 End: 09-22-2022 Patient encounter procedure Kenneth [facility] Start: 09-11-2022 End: 09-11-2022 Emergency department patient visit Kenneth [facility]-Emergency Department Start: 08-14-2022 Non-patient / Non-visit Kenneth [facility] Start: 08-14-2022 End: 08-14-2022 ambulatory Kenneth [facility] Work Phone: Start: 08-14-2022 End: 08-14-2022 Patient encounter procedure [facility] Start: 07-16-2022 End: 07-16-2022 Patient encounter procedure [facility]-Pulmonary Medicine [facility] Start: 07-08-2022 End: 07-08-2022 Patient encounter procedure [facility] Start: 06-26-2022 Non-patient / Non-visit Kenneth [facility] Start: 06-25-2022 End: 06-25-2022 Patient encounter procedure Kenneth [facility]-Cardiovascula r Services Start: 06-25-2022 Non-patient / Non-visit Kenneth [facility] Start: 06-24-2022 End: 06-24-2022 ambulatory Kenneth [facility] Work Phone: Start: 06-24-2022 End: 06-24-2022 Patient encounter procedure [facility]-Pulmonary Services/Neurology Start: 06-10-2022 End: 06-10-2022 Patient encounter procedure Kenneth [facility] Start: 06-06-2022 End: 06-06-2022 ambulatory [facility] Work Phone: Start: 06-06-2022 End: 06-06-2022 Patient encounter procedure Kenneth [facility]-Laboratory Start: 03-16-2022 End: 03-16-2022 Patient encounter procedure [facility]-Pulmonary Medicine [facility] Start: 10-11-2018 End: 10-12-2018 Patient encounter procedure STEPHEN DAVIDSON Facility:[facility] Start: 05-03-2018 End: 05-04-2018 [facility] Start: 04-24-2016 End: 04-30-2016 Evaluation and management of inpatient CHRIS Natacha () [facility] Procedures Date Procedure Procedure Detail Performing Clinician Start: 03-27-2025 Serologic test for syphilis Dr. Kenneth Villanueva DO Work Phone: Start: 03-26-2025 Benzodiazepine measu rement, urine Dr. [...] 01-02-2025 Total cholesterol:HD L ratio measurement Dr. Kenneth Villanueva DO Work Phone: Start: 10-11-2024 Assay [...] 05-07-2023 Diagnostic radiograp hy of finger Kenneth LondonLalit OLS Start: 04-30-2023 Diagnostic radiograp hy of finger Kenneth Sainiman [facility] Start: 04-27-2023 Plain x-ray of hand Mar kimani Lalit O[facility] Start: 04-27-2023 Radiologic examinati on of knee Kenneth Lalit O[facility] Start: 04-27-2023 CT of head without contrast Kenneth Villanueva OLS Start: 02-19-2023 Urine culture Kenneth Ponce omidjamie OLS Start: 02-02-2023 Hysteroscopy with endometrial ablation Kenneth Villanueva OLS Start: 11-27-2022 Plain chest X-ray Kenneth Villanueva [...] PCV20) PNEUMOCOCCAL (3 - PPSV23 or PCV20) [facility] Start: 2047 Pneumococcal vaccination Pneum ococcal Vaccine (3 - PPSV23 or PCV20) [facility] Start: 03-27-2025 Chlamydia deoxyribon ucleic acid detection [facility] Start: 03-27-2025 Hepatitis C virus RN A assay [facility] Start: 03-27-2025 [facility] Start: 03-26-2025 [facility] Start: 03-26-2025 End: 03-26-2025 [facility] Start: 03-26-2025 End: 03-26-2025 [facility] Start: 02-07-2025 [facility] Start: 02-06-2025 Chlamydia deoxyribon ucleic acid detection [facility] Start: 02-06-2025 Liquid based cervica l cytology screening [facility] Start: 02-01-2025 Patient referral [facility] Work Phone: Start: 06-04-2024 Covid-19 Vaccine () Covid-19 Vaccine () [facility] Start: 06-04-2024 Influenza vaccination Influenza Vacc ine (#1) [facility] Start: 11-26-2023 [facility] Start: 11-17-2023 [facility] Start: 11-17-2023 [facility] Start: 10-09-2023 [facility] Start: 10-04-2023 Depression Assessment Depression Ass essment [facility] Start: 06-04-2023 Covid-19 Vaccine ( season) Covid-19 Vaccine ( season) [facility] Start: 06-04-2023 Influenza vaccination [facility] Start: 05-07-2023 Patient referral [facility] Work Phone: Start: 02-02-2023 Patient discharge [facility] Start: 02-02-2023 Procedure discontinued [facility] Start: 02-02-2023 Ambulation without limitation [facility] Start: 02-02-2023 Medical regimen orde rs management [facility] Start: 02-02-2023 Medication education [facility] Start: 02-02-2023 Taking patient vital signs [facility] Start: 02-02-2023 Vital signs measurements [facility] Start: 02-02-2023 [facility] Start: 02-02-2023 Anes hysteroscopy&/hysterosalpi ngography w/bx ANESTH HYSTEROSCOPE/GRAPH [facility] Start: 02-02-2023 Hysteroscopy endomet rial ablation HYSTEROSCOPY ABLATION [facility] Start: 2022 Mammography [facility] Start: 2022 Screening for malign ant neoplasm of breast Mammogram Screening [facility] Start: 10-04-2022 DEPRESSION ASSESSMENT DEPRESSION ASS ESSMENT [facility] Start: 08-07-2021 Covid-19 Vaccine (3 - Moderna series) Covid-19 Vaccine (3 - Moderna series) [facility] Start: 06-29-2021 HPV TESTING HPV TESTING [facility] Start: 06-29-2021 PAP TESTING PAP TESTING [facility] Start: 06-29-2021 Screening for malign ant neoplasm of cervix [facility] Start: 05-19-2019 3 comp foot exam completed DIABETIC FOOT EXAM [facility] Start: 05-19-2019 Diabetic foot examination Diabetic F oot Exam [facility] Start: 04-29-2019 Urine microalbumin profile [facility] Start: 03-15-2018 Hepatitis B screening URINE ALBUMIN:CREATININE RATIO [facility] Start: 03-15-2018 Hepatitis B surface antibody level LDL CHOLESTEROL [facility] Start: 09-14-2017 Hemoglobin A1c measurement HbA1C [facility] Start: 09-14-2017 Hemoglobin A1c/Hemoglobin.total in Blood HBA1C [facility] Start: 06-17-2017 End: 06-17-2017 Appointment Appointment [facility] Work Phone: Start: 06-03-2017 End: 06-03-2017 Appointment Appointment [facility] Work Phone: Start: 05-07-2017 Glaucoma screening Dilated Retinal E xam [facility] Start: 05-07-2017 Hepatitis C antibody , confirmatory test DILATED RETINAL EXAM [facility] Start: 2001 Hepatitis B Vaccine (1 of 3 - 19+ 3-dose series) Hepatitis B Vaccine (1 of 3 - 19+ 3-dose series) [facility] Start: 2000 ANNUAL PCP TEAM DRUPAL ARCHITECT EULALIA DISEASE VISIT ANNUAL PCP TEAM CHRONIC DISEASE VISIT [facility] Start: 2000 Anxiety Screening Anxiety Screening [facility] Start: 2000 BP CONTROLLED (<130/80) BP CON TROLLED (<130/80) [facility] Start: 2000 Depression Screening Depression Scre ening [facility] Start: 04-29-1983 COVID-19 VACCINE (#1) COVID-19 VACCI NE (#1) [facility] Start: 1982 HEPATITIS B (1 of 3 - 3-dose series) HEPATITIS B (1 of 3 - 3-dose series) [facility] Start: 1982 Hepatitis B Vaccine (1 of 3 - 3-dose series) Hepatitis B Vaccine (1 of 3 - 3-dose series) [facility] CBC W Auto Different ial panel - Blood [facility] Work Phone: Chlamydia deoxyribon ucleic acid detection [facility] Cytology report of Cervical or vaginal smear or scraping Cyto stain.thin prep [facility] Exercise tolerance test [facility] Work Phone: Lipid 1996 panel - S micah or Plasma [facility] Measurement of Human herpesvirus 2 antibody [facility] Measurement of respi ratory function [facility] Work Phone: Measurement of respi ratory function [facility] Neisseria gonorrhoea e rRNA [Presence] in Unspecified specimen by GURPREET with probe detection [facility] Neisseria gonorrhoea e rRNA [Presence] in Unspecified specimen by GURPREET with probe detection [facility] Path report.final Dx Spec [facility] Patient Education [facility] Work Phone: Patient referral [facility] Work Phone: PCR for Hepatitis C [facility] PCR test for Chlamyd ia trachomatis [facility] PCR test for Chlamyd ia trachomatis [facility] Serologic test for h erpes simplex [facility] Serologic test for syphilis [facility] Thyroid stimulating hormone measurement [facility] Work Phone: Troponin T.cardiac [Mass/volume] in Serum or Plasma by High sensitivity method [facility] Urine culture [facility] Work Phone: Heart [facility] Pelvis [facility] Pelvis transvaginal [facility] End: 06-24-2024 XR DIGIT GENERAL 3V FRONTAL/LAT/OBL RIGHT XR DIGIT GENERAL 3V FRONTAL/LAT/OBL RIGHT Radiology Routine Pain of finger of right hand 1 Occurrences starting 05/26/2023 until 06/24/2024 [facility] Work Phone: Comment on above: 1 Occurrences starti ng 05/26/2023 until 06/24/2024 XR Foot - bilateral AP and Lateral and oblique XR FOOT GENERAL 3V AP/LAT/OBL BILATERAL Radiology Routine Pain 06/20/2024 10:20 AM EDT [facility] Work Phone: [facility] Immunizations Immunization Date Immunization Notes Care Provider Angel espinal 07-16-2022 influenza, injectabl e, quadrivalent, preservative free Dr. Kenneth Villanueva Work Phone: [facility] 07-16-2022 influenza, seasonal, injectable [facility] 07-16-2022 influenza virus vacc ine, unspecified formulation Steven Cunningham MD Work Phone: [facility] 08-15-2021 influenza, injectabl e, quadrivalent, preservative free Dr. Kenneth Villanueva Work Phone: [facility] 08-15-2021 influenza, seasonal, injectable [facility] 07-02-2020 influenza, injectable,quadrivalent, preservative free, pediatric [facility] 09-03-2017 influenza, injectabl e, quadrivalent, preservative free Dr. Kenneth Villanueva Work Phone: [facility] 09-03-2017 influenza, seasonal, injectable [facility] 08-19-2016 influenza, injectabl e, quadrivalent, preservative free Dr. Kenneth Villanueva Work Phone: [facility] 08-19-2016 influenza, seasonal, injectable [facility] 08-19-2016 pneumococcal polysaccharide vaccine, 23 valent Kenneth Lalit [facility] 08-04-2016 pneumococcal conjuga te vaccine, 13 valent Steven Cunningham MD Work Phone: [facility] Work Phone: 06-30-2016 influenza, injectabl e, quadrivalent, contains preservative Steven Cunningham MD Work Phone: [facility] 08-18-2015 influenza, seasonal, injectable Steven Cunningham MD Work Phone: [facility] 07-04-2014 influenza, seasonal, injectable Steven Cunningham MD Work Phone: [facility] 06-28-2012 influenza virus vacc ine, unspecified formulation Steven Cunningham MD Work Phone: [facility] Work Phone: 08-12-2010 influenza virus vacc ine, unspecified formulation Steven Cunningham MD Work Phone: [facility] 07-26-2009 influenza virus vacc ine, unspecified formulation Steven Cunningham MD Work Phone: [facility] Work Phone: 04-29-2009 tetanus toxoid, redu andrés diphtheria toxoid, and acellular pertussis vaccine, adsorbed Steven Cunningham MD Work Phone: [facility] Work Phone: 08-08-2007 influenza virus vacc ine, unspecified formulation Steven Cunningham MD Work Phone: [facility] Work Phone: 10-03-2003 pneumococcal polysaccharide vaccine, 23 valent Steven Cunningham MD Work Phone: [facility] Payers Date Payer Category Payer Self-pay [id number] 2023 Unknown [id number] 2015 Medicaid [employer] [id number] 2015-Present [phone] [place] [address] Medicaid [id number] 2015 Medicare [employer] [place] [employer]ARE [id number] 2015-Present [phone] [address] [place] [address] Medicare [id number] 2015 Unknown [id number] 1980 Unknown [id number] 1980 Unknown [id number] 2.840.1.767896.3.579.2.627 1982 Unknown [id number] 2.840.1.390383.3.579.2.594 Unknown [id number] 2.840.1.900041.3.579.2.462 Unknown [id number] 2.840.1.868459.3.579.2.462 Unknown [id number] 2.840.1.225352.3.579.2.462 Unknown [id number] 2.840.1.709190.3.579.2.462 Unknown [id number] 2.16840.1.648052.3.579.2.462 Unknown [id number] 2.16840.1.975854.3.579.2.462 Unknown [id number] 2.840.1.860889.3.579.2.462 Unknown [id number] 2.16.840.1.692406.3.579.2.462 Unknown [id number] 2.16.840.1.335665.3.579.2.462 Unknown [id number] 2.16.840.1.218805.3.579.2.462 Unknown [id number] 2.16.840.1.099324.3.579.2.462 Unknown [id number] 2.16.840.1.986133.3.579.2.462 Unknown [id number] 2.16.840.1.945623.3.579.2.462 Unknown [id number] 2.16.840.1.139342.3.579.2.462 Unknown [id number] 2.16.840.1.926272.3.579.2.462 Unknown [id number] 2.16.840.1.975544.3.579.2.462 Unknown [id number] 2.16.840.1.872332.3.579.2.462 Unknown [id number] 2.16.840.1.347545.3.579.2.462 Unknown [id number] 2.16.840.1.758959.3.579.2.462 Unknown [id number] 2.16840.1.879983.3.579.2.462 Unknown [id number] 2.16840.1.134577.3.579.2.462 Social History Date Type Detail Facility Start: 06-10-2022 End: 06-22-2023 Tobacco smoking status NYIS Unknown if ever smoked [facility] Start: 04-01-2021 None [facility] Start: 11-07-2018 With Family [facility] Start: 04-01-2021 Non-smoker [facility] Start: 1980 Sex Assigned At Female W [facility] Start: 04-22-2011 End: 03-26-2025 Tobacco smoking status NHIS Never smoked tobacco [facility] Work Phone: Start: 04-22-2011 Tobacco use and exposure Smokeless tobacco non-user [facility] Work Phone: Start: 05-01-2021 End: 06-20-2024 Alcohol intake Current non-drinker of alcohol (finding) [facility] Start: 05-01-2021 End: 05-10-2023 History of Social function [facility] Start: 05-01-2021 End: 05-10-2023 Tobacco use panel [facility] Adult Depression Screening Assessment 0 [facility] Start: 1980 Sex Assigned At Not on file [facility] Start: 01-25-2025 Sex Female (finding) [facility] NEGATED: Highlighted row [facility] Medical Equipment Procedure Code Equipment Code Equipment Original Text Equipment Identifier Dates [id number], [id number], [id number] Start: 05-28-2016 Comment on above: Test blood sugar(s) four (4) times daily. daily. Dx: Type 2 diabetes, controlled without complication. E11.9. Insulin: No USE WITH victoza pen s daily Goals Date Patient Goal Desired Activity /State Personal health goal Mental Status Date Assessment Result Facility 03-26-2025 Cognitive function Awake;Alert;Follows Co mmands [facility] Work Phone: 11-26-2023 Cognitive function Level Of Cons ciousness Awake;Alert;Appropriate;Follow s Commands [facility] Work Phone: 11-17-2023 Cognitive function Level Of Cons ciousness Awake;Alert;Appropriate;Follow s Commands [facility] Work Phone: 04-27-2023 Cognitive function Voice/Name [facility] Work Phone: 02-02-2023 Cognitive function Level Of Consciousness Sedated [facility] Work Phone: 02-02-2023 Cognitive function Voice/Name [facility] Work Phone: Clinical Notes 04-23-2016 to 03-28-2025 Note Date & Type Note Facility 03-28-2025 Progress note Note Date/Time March 28, 2025 2:12pm [facility] [address] [place] [address] OFFICE VISIT Date of Service: 03/28/25 MR#: [id number] Acct: [id number] Name: CLIFTON CAGE Rep #: [id number] : 1980 Provider: OSMANY Clement Age/Sex: 44/F Location: [facility] Status: Signed HPI HPI History of Present Illness Details: This is a 44-year-old white female who presents today for outpatient cardiovascular follow-up. She has a history of PSVT, hyperlipidemia, and hypertension. She follows with nephrology as well. She denies chest, arm, jaw, or neck discomfort. She denies palpitations or bilateral lower extreme edema. She denies shortness of breath with activity, shortness of breath at rest, orthopnea cough, or PND. She acknowledges dizziness, lightheadedness, near-syncope, syncope, weakness, and left arm and leg numbness. She acknowledges fatigue. She has concerns of her symptoms related to low normal blood pressure. Intake Vital Signs 03/27/25 11:51 03/28/25 13:35 Height 5 ft 8 in 5 ft 8 in Weight: 253 lb BMI 38.5 BP 112/73 Blood Pressure Location Rt brachial Position Sitting Respiration 16 Pulse 83 Pulse Source NIBP Pulse Oximetry (%) 95 Oxygen Delivery Method nasal canula Oxygen Flow Rate (L/min) 2 Intake Visit Reasons: DRUG INTERACTIONS Allergies amoxicillin Allergy (Severe, Verified 03/27/25 12:14) Anaphylaxis metronidazole Allergy (Severe, Verified 03/27/25 12:14) SOB nabumetone Allergy (Unknown, Verified 03/27/25 12:14) Unknown hydrocodone bitartrate (From [place]) Allergy (Verified 03/27/25 12:14) Itching Penicillins Allergy (Verified 03/27/25 12:14) Swelling carvedilol Adverse Reaction (Severe, Verified 03/27/25 12:14) shortness of breath, chest pain doxycycline Adverse Reaction (Verified 03/27/25 12:14) [facility] History (Reviewed 03/28/25 @ 14:01 by Franklyn H Roof AB INITIO ETL DEVELOPER, AB INITIO ETL DEVELOPER-C) Near syncope Depression Anxiety Diabetes Bladder disease [...] obesity Type 2 diabetes mellitus Surgical History (Reviewed 03/28/25 @ 14:01 by Franklyn Clement AB INITIO ETL DEVELOPER, AB INITIO ETL DEVELOPER-C) Hx of colonoscopy Hx of ventral hernia repair S/P laparotomy History of removal of ovarian cyst History of section H/O tubal ligation History of open heart surgery Family History (Reviewed 03/28/25 @ 14:01 by Franklyn Clement AB INITIO ETL DEVELOPER, AB INITIO ETL DEVELOPER-C) Mother Diabetes Kidney disease Sister Diabetes Liver disease Kidney disease, Onset Age: 41 on dialysis Sister Diabetes Father Diabetes Hypertension Gangrene Social History (Reviewed 03/28/25 @ 14:01 by Franklyn Clement AB INITIO ETL DEVELOPER, AB INITIO ETL DEVELOPER-C) Smoking Status: Never smoker alcohol intake: never substance use type: does not use caffeine: Yes Type: carbonated beverages Number of servings: 1 and coffee Number of servings: 1 what type of physical activity do you participate in: walking frequency: daily duration: 15-30 minutes/day seatbelt use: always do you feel safe at home: Yes additional social history: but the don't live together. ROS Const Const: Positive for fatigue and weakness; Negative for body ache, fever(s) or chills ENT ENT: Positive for dizziness; Negative for Nosebleed/epistaxis Cardio Chest Pain: No Palpitations: No Edema: None Muscle aches with walking: None Resp Respiratory: Negative for SOB with activity, SOB at rest, SOB orthopneaundefinedSOB lying down, Cough or paroxysmal nocturnal dyspnea GI GI: Negative nausea, vomiting blood/hematemesis, bright, red blood in stools or black,tarry stools : Negative for hematuria or frequent nighttime urination/ nocturia Musc Musc: Negative for muscle aches/ myalgia Skin Skin: Negative non-healing lesions or rash Neuro Neuro: Positive for dizziness, lightheadedness, near syncope, syncope, weakness and other (left arm, left leg numbness); Negative for orthostatic symptoms Endo Endo: Positive for fatigue Allergy Allergy/Immunology: Negative for rash Cardiology Exam Const Appearance: cooperative, healthy appearing, comfortable and no acute distress Nutritional Appearance: well nourished and obese Orientation: alert, awake and oriented x3 Head Head: normal to inspection Ears: hearing grossly normal bilaterally Nose: external nose normal Face and Sinus: face symmetric Mouth: moist mucous membranes Eyes General: appearance normal, both eyes and all related structures Eyelids: eyelids normal EOM: EOM intact bilaterally Neck Neck: normal visual inspection and no JVD Carotids: normal carotid upstroke Chest Chest inspection: normal inspection of the chest, symmetric chest movement and normal respiratory effort; Negative cough Auscultation: Bilateral: Clear to Auscultation Cardio Rate: regular rate Rhythm: regular rhythm Heart sounds: S1 normal and S2 normal; Negative rub, gallop or murmur GI GI: normal to inspection and obese Neuro General: patient alert, patient awake, patient oriented x3 and CN's II-XI intactbilaterally Skin Skin: no rashes or lesions noted Extremities Pulses: Normal: Right Posterior Tibial Pulse, Left Posterior Tibial Pulse, RightRadial Pulse and Left Radial Pulse Lower Extremity Edema: None: Bilateral Psych Psychological: normal affect Supplemental Info Supplemental Information Echocardiogram 06/25/2022: Interpretation Summary The study was technically difficult. Contrast injection was performed. Based upon the 2D echocardiographic and contrast enhanced images obtained there appears to be grossly normal left ventricular size, wall motion, and systolic function. The estimated ejection fraction is 65 %. Unable to assess diastolic dysfunction. Echocardiogram from 11/07/2018: Normal LV size. Left ventricular systolic function is lower limits of normal. The estimated ejection fraction is 50 %. Unable to assess diastolic dysfunction due to arrhythmia. Contrast injection was performed. The study was technically difficult. Stress test from 05/02/2019: Impression: 1. Rest and stress SPECT Cardiolite nuclear imaging demonstrate relative uniform tracer uptake and myocardial perfusion appearing within normal limits. 2. The gated Cardiolite study reports an LVEF of 75 %. 48 Hour Holter Monitor 05/10/23 Average HR was 74 bpm; Min HR was 54 bpm in Sinus Bradycardia; Max HR was 112 bpm in NSR. The longest R-R interval was 1.9 seconds. There were a total of 234 premature supraventricular ectopic isolated beats, comprising of 0.1% of the total QRS complexes. No runs noted. No atrial fibrillation noted. The patient kept a diary with one feeling of chest pain, which did not correlatewith scan. 2 episodes of RHR which did not correlate with scan. Noted heart rateto be 67-77 during this period. Holter monitor from 09/11/2021: Sinus rhythm; rare PACs; an isolated PVC; no narrow complex runs; no wide-complex runs. Renal Artery Duplex 08/14/2022: Interpretation Summary Right renal artery patent with normal velocities Left renal artery patent with normal velocities Right renal vein patent Left renal vein patent The right kidney is normal in size. The left kidney is normal in size. 24 Hour Ambulatory Blood Pressure Monitor 10/08/2022: Her 24 hour ambulatory blood pressure monitor demonstrated an average blood pressure during the awake time of 126/69, and her average blood pressure during the nocturnal state was 152/81, with an overall 24-hour blood pressure control noted to be 149/80. Which is noted to be mildly elevated. Labs: LDL Cholesterol 100 mg/dL (0-130) HDL Cholesterol 40 mg/dL (40-) Cholesterol 205 mg/dL (<=200) H Triglycerides 149 mg/dL (-199) Diagnostics: Electrocardiogram Echocardiogram Stress Test Stress Test Nuclear Medicine Chest X-Ray Chest CTA Abdomen/Pelvis CT Renal Artery Duplex Pulmonary: Pulmonary Function Test Pulmonary Exercise Test Past Visits: Cardiology Visit 03/28/25 Assessment and Plan Assessment and Plan (1) Essential hypertension: Status: Chronic Plan: Her main concern is that a normal blood pressure does result in significant symptoms. She is currently wearing a 24-hour ambulatory blood pressure cuff. With discussion, it appears that her symptoms are made worse when she takes her afternoon/evening labetalol. She was asked to take labetalol 200 mg p.o. daily. We will change her Lasix to p.o. LV function. Hydration encouraged. She was also asked to undergo a repeat echocardiogram to evaluate for structural changesthat may be contributing to fluctuating blood pressure. She was also encouragedto follow with primary care provider for noncardiac etiology as we continue to review and adjust medications. Renal artery duplex in August 2022 showed no significant stenosis. She will keep her appointment in April 2025 to reassess blood pressure and response to medication changes. We will contact her with echocardiogram resultsonce received. (2) Type 2 diabetes mellitus: Status: Chronic Plan: She was encouraged continue to follow with primary care provider. (3) HLD (hyperlipidemia): Status: Acute Qualifiers: Hyperlipidemia type: unspecified Qualified Code(s): E78.5 - Hyperlipidemia, unspecified Plan: She will continue current medical therapy that includes atorvastatin 80 mg p.o. daily. Orders: Orders Echo Complete Today E11.9 - Type 2 diabetes mellitus without complications, E78.5 - Hyperlipidemia, unspecified, I50.9 - Heart failure, unspecified, J98.4 -Other disorders of lung, R55 - Syncope and collapse Medications: Discontinued labetalol Discontinued Reason: Order Changed 400 mg PO BID 60 tabs 11RF Plan Details Additional Comments: Thank you for allowing us to participate in the patients plan of care, if you have any questions please do not hesitate to call. Plan was reviewed with patient/family member along with red flag symptoms. Understanding was acknowledged. Questions were answered to apparent satisfaction. This note was generated using a voice recognition system and there may be incorrect words, spelling or punctuation that were not noted when reviewing the office note prior to saving. Portions of this documentation were copied and pasted from previous office visitnotes to provide a cohesive continuity of the history. The note has been reviewed, edited, and updated, as necessary. Follow Up: Keep as is (MMM) Coding Level of Care Code Off vis,est,level 4 Diagnoses Essential hypertension I10 Type 2 diabetes mellitus E11.9 Hyperlipidemia, unspecified hyperlipidemia type E78.5 Hyperlipidemia type: unspecified Coding Level of Care Code Off vis,est,level 4 Diagnoses Essential hypertension I10 Type 2 diabetes mellitus E11.9 Hyperlipidemia, unspecified hyperlipidemia type E78.5 Hyperlipidemia type: unspecified 03/28/25 1412 <Electronically signed by Franklyn CERON> Date _ Franklyn Clement AB INITIO ETL DEVELOPER AB INITIO ETL DEVELOPER-C Uyenaruna Signature: Date (if applicable) CC: Dr. Kenneth Villanueva DO ~ [facility] Work Phone: [phone]) [phone] Radiology Diagnostic study [facility]06-23-2025 Radiology Diagnostic study [facility]06-23-2025 Discharge summary Author Miguel Angel Parikh [facility] Note Date/Time March 26, 2025 9:20 pm [facility] Medical Records Department [address] [place] [address] Emergency Department Summary 03/26/25 MR#: [id number] Acct: [id number] Name: CLIFTON CAGE Rep #:[id number] : 1980 44 From: Miguel Angel Parikh MD PCP: Dr. Kenneth Villanueva DO Status:REG [...] wall. Is not necessarily worse with standing. [facility] Medical History Near syncope Depression Anxiety Diabetes [...] bitartrate (From Allergy Itching Verified 02/07/25 15:43 [place]) Penicillins Allergy Swelling Verified 02/07/25 15:43 carvedilol [...] sodium of 137 and potassium 4.5, glucose [id number] but normal anion gap of 14 so [...] she has a follow-up appointment with her FLEECE TIER tomorrow at 11 AM. I reviewed the [...] 73.2 H Lymph % (Auto) 18.6 L [place] % (Auto) 6.7 Eos % (Auto) 0.9 [...] Clarity Clear Urine pH 5.0 Ur Specific [place] 1.025 Urine Protein 100 H Urine Glucose [...] IMPRESSION: No acute cardiopulmonary abnormality. Reading Location: [facility] 03/26/25 18:28 IMPRESSION: No acute intracranial abnormality. Reading Location: [facility] Discharge Plan Triage Chief Complaint: Syncope ED [...] Care Provider: Kenneth Villanueva Referrals: Kenneth Villanueva, [Primary Care Provider] - 3-5 Days if not improving Activity Restrictions/Additional Instructions: Follow-up with your FLEECE TIER as scheduled tomorrow. You have been given your first dose of antibiotic for urinary tract infection today. Take the remainder of your medication/antibiotic for the next week. Return with sustained high fever, new or worsening symptoms. Print Language: Kyrgyz Disposition Disposition: Home, Self Care What to do if you have Problems For any increased pain, shortness of breath, bleeding, nausea or vomiting, chestpain, or any unexpected problems, contact your Primary Care Provider. Call [facility] ([phone]) or report to the closest Emergency Room. Call 911 if necessary. 03/26/252119 <Electronically signed by Miguel Agnel Parikh MD> Cosigner Signature (if applicable): CC: Dr. Kenneth Villanueva DO ~ Signed [facility] Work Phone: 1(318) 955-458505-07-2025 Radiology Diagnostic study note [facility] Imaging Services [address] [place] [address] Chest 1 View (Portable) MR#: [id number] Acct: [id number] Name: CLIFTON CAGE Rep #: [id number] : 1980 F 44 From: Mary Valenzuela MD PCP: Dr. Kenneth Villanueva DO Status: REG ER Study:Chest 1 View (Portable) Date of Exam: 02/07/25 Exam# [id number] Ordering Dr: Chely Bailey DO PROCEDURE: CHEST [...] Kenneth Villanueva DO; Dr. Lisa Bailey DO ~ [place]: Signed [facility]03-12-2025 Evaluation note* Diagnosis Onset Date Resolution Status Admit Date Asthma chronic December 13 1:21pm CHF (congestive heart failure) [facility] December 13, 2024 1:21pm Chronic respiratory failure chronic December 13, 2024 1:21pm Mild intellectual disabilities [facility] December 13, 2024 1:21pm Obstructive sleep apnea chronic M 2024 1:21pm Restrictive lung disease chronic December 13, 2024 1:21pm HLD (hyperlipidemia) acute Apri l 2024 9:38am CHF (congestive heart failure) chron ic January 19, 2025 9:38am Essential hypertension chronic Ap ril 2024 9:38am Paroxysmal supraventricular tachycardia chronic January 19, 2025 9:38am [facility] Work Phone: 1(558) 972-613403-12-2025 Evaluation note* Diagnosis Onset Date Resolution Status Admit Date Asthma chronic December 13 1:21pm CHF (congestive heart failure) chron ic December 13, 2024 1:21pm Chronic respiratory failure chronic December 13, 2024 1:21pm Mild intellectual disabilities chron ic December 13, 2024 1:21pm Obstructive sleep apnea chronic M arch 2024 1:21pm Restrictive lung disease chronic December 13, 2024 1:21pm HLD (hyperlipidemia) acute Apri l 2024 9:38am CHF (congestive heart failure) chron ic January 19, 2025 9:38am Essential hypertension chronic Ap ril 2024 9:38am Paroxysmal supraventricular tachycardia chronic January 19, 2025 9:38am Possible exposure to STD noneactive February 06, 2025 11:10am Encounter for routine gynecological examination noneactive February 11:10am [facility] Work Phone: 1(730) 135-462003-12-2025 Evaluation note* Diagnosis Onset Date Resolution Status Admit Date Asthma chronic December 13 1:21pm CHF (congestive heart failure) chron December 13, 2024 1:21pm Chronic respiratory failure chronic December 13, 2024 1:21pm Mild intellectual disabilities [facility] December 13, 2024 1:21pm Obstructive sleep apnea chronic arch 2024 1:21pm Restrictive lung disease chronic December 13, 2024 1:21pm HLD (hyperlipidemia) acute Apri l 2024 9:38am CHF (congestive heart failure) chron ic January 19, 2025 9:38am Essential hypertension chronic Ap ril 2024 9:38am Paroxysmal supraventricular tachycardia chronic January 19, 2025 9:38am Possible exposure to STD noneactive February 06, 2025 11:10am Encounter for routine gynecological examination noneactive February 11:10am Asthma chronic March 08, 2025 2:17pm CHF (congestive heart failure) chron ic March 08, 2025 2:17pm Chronic respiratory failure chronic March 08, 2025 2:17pm Mild intellectual disabilities chron ic March 08, 2025 2:17pm Obstructive sleep apnea chronic J une 2024 2:17pm Restrictive lung disease chronic March 08, 2025 2:17pm [facility] Work Phone: 1(107) 944-928403-12-2025 Evaluation note* Diagnosis Onset Date Resolution Status Admit Date Asthma chronic December 13 1:21pm CHF (congestive heart failure) chron ic December 13, 2024 1:21pm Chronic respiratory failure chronic December 13, 2024 1:21pm Mild intellectual disabilities chron December 13, 2024 1:21pm Obstructive sleep apnea chronic M 2024 1:21pm Restrictive lung disease chronic December 13, 2024 1:21pm HLD (hyperlipidemia) acute Apri l 2024 9:38am CHF (congestive heart failure) chron ic January 19, 2025 9:38am Essential hypertension chronic Ap ril 2024 9:38am Paroxysmal supraventricular tachycardia chronic January 19, 2025 9:38am Possible exposure to STD noneactive February 06, 2025 11:10am Encounter for routine gynecological examination noneactive February 11:10am Asthma chronic March 08, 2025 2:17pm CHF (congestive heart failure) chron ic March 08, 2025 2:17pm Chronic respiratory failure chronic March 08, 2025 2:17pm Mild intellectual disabilities chron ic March 08, 2025 2:17pm Obstructive sleep apnea chronic J une 2024 2:17pm Restrictive lung disease chronic March 08, 2025 2:17pm Infection due to trichomonas vaginalis acute March 27, 2025 11:34am HLD (hyperlipidemia) acute March 28, 2025 1:17pm Essential hypertension chronic Ju 2024 1:17pm Type 2 diabetes mellitus chronic March 28, 2025 1:17pm [facility] Work Phone: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 AUTHOR'S ORGANIZ ATION 03/28/2025 [facility] Goals (unrecognized section and content) Goals [...] Kenneth Villanueva DO Family Provider Active Kenneth Villanueva Primary Care Provider Active Team Status: Inactive Member Role Status Dates Kenneth Villanueva Primary Care Provider Active Flori Lee AB INITIO ETL DEVELOPER, AB INITIO ETL DEVELOPER-C Attending Provider, Referrin g Provider Active Team Status: Inactive Member Role Status Dates Kenneth Villanueva Primary Care Provider, Referring Provide r Active Norma Dunn AB INITIO ETL DEVELOPER, AB INITIO ETL DEVELOPER-C Attending Provider Active Team Status: Active Member Role Status Dates Kenneth Villanueva Primary Care Provider Active Dr. Lorenzo Brown MD Referring Provider, Other Provid er Active Dr. Dominick Mcclendon DO Attending Provider Active Team Status: Active Member Role Status Dates Kenneth Villanueva Primary Care Provider Active Dr. Edward Beasley MD Attending Provider Active Team Status: Active Member Role Status Dates [facility] Primary Care Provider Active Norma Dunn AB INITIO ETL DEVELOPER, AB INITIO ETL DEVELOPER-C Referring Provider, Other Provi jhonny Active Dr. Dominick Mcclendon DO Attending Provider Active Team Status: Active Member Role Status Dates [facility] Primary Care Provider Active Dr. Gennaro Morgna MD Attending Provider Active Norma Dunn AB INITIO ETL DEVELOPER, AB INITIO ETL DEVELOPER-C Referring Provider Active Team Status: Inactive Member Role Status Dates [facility] Primary Care Provider, Referring Provide r Active Flori Lee AB INITIO ETL DEVELOPER, AB INITIO ETL DEVELOPER-C Attending Provider Active Team Status: Inactive Member Role Status Dates [facility] Primary Care Provider Active Dr. Lorenzo Brown MD Attending Provider, Referring Pr ovider Active Team Status: Inactive Member Role Status Dates [facility] Primary Care Provider Active Norma Dunn AB INITIO ETL DEVELOPER, AB INITIO ETL DEVELOPER-C Attending Provider, Referring P rovider Active Team Status: Inactive Member Role Status [facility] Primary Care Provider Active Dr. Tristen Ames DO Attending Provider, Emergency P rovider Active Team Status: Active Member Role Status [facility] Primary Care Provider Active Flori Lee AB INITIO ETL DEVELOPER, AB INITIO ETL DEVELOPER-C Attending Provider, Referrin g Provider Active Team Status: Inactive Member Role Status Dates [facility] Primary Care Provider Active Dr. Gennaro Tejada DO Emergency Provider Active Team Status: Inactive Member Role Status [facility] Primary Care Provider, Referring Provide r Active Dr. Lorenzo Brown MD Attending Provider Active Team Status: Inactive Member Role Status [facility] Primary Care Provider, Referring Provide r Active Felicia Gonzalez AB INITIO ETL DEVELOPER, AB INITIO ETL DEVELOPER-C Attending Provider Active Team Status: Active Member Role Status Dates [facility] Primary Care Provider Active Dr. Lorenzo Brown MD Other Provider Active Dr. Dominick Mcclendon DO Attending Provider Active Team Status: Inactive Member Role Status Dates [facility] Primary Care Provider Active Dr. Gennaro Tejada DO Attending Provider, Emergency P rovider Active Team Status: Inactive Member Role Status [facility] Primary Care Provider Active Felicia Gonzalez AB INITIO ETL DEVELOPER, AB INITIO ETL DEVELOPER-C Attending Provider, Referring Provider Active Team Status: Active Member Role Status Dates [facility] Primary Care Provider Active Dr. Lorenzo Brown MD Attending Provider Active Team Status: Active Member Role Status Dates [facility] Primary Care Provider Active Felicia Gonzalez AB INITIO ETL DEVELOPER, AB INITIO ETL DEVELOPER-C Attending Provider, Referring Provider Active Team Status: Inactive Member Role Status Kenneth LondonLalit Primary Care Provider Active Dr. Lorenzo Brown MD Attending Provider Active Team Status: Inactive Member Role Status Kenneth Villanueva Primary Care Provider Active Dr. Steven Pollard MD Emergency Provider Active Team Status: Active Member Role Status Dates Dr. Kenneth Villanueva DO Family Provider Active Dr. Kenneth Villanueva DO Primary Care Provider Active Team Status: Inactive Member Role Status Kenneth STEIN Primary Care Provider, Referring Pro vider Active Norma Dunn AB INITIO ETL DEVELOPER, AB INITIO ETL DEVELOPER-C Attending Provider Active Team Status: Inactive Member Role Status Dates Kenneth STEIN Primary Care Provider Active Flori Lee AB INITIO ETL DEVELOPER, AB INITIO ETL DEVELOPER-C Attending Provider, Referrin g Provider Active Team Status: Inactive Member Role Status Kenneth STEIN Primary Care Provider, Referring Pro vider Active Dr. Lorenzo Brown MD Attending Provider Active Team Status: Inactive Member Role Status Kenneth STEIN Primary Care Provider, Referring Pro vider Active Felicia Gonzalez AB INITIO ETL DEVELOPER, AB INITIO ETL DEVELOPER-C Attending Provider Active Team Status: Inactive Member Role Status Kenneth STEIN Primary Care Provider, Referring Pro vider Active Flori Lee AB INITIO ETL DEVELOPER, AB INITIO ETL DEVELOPER-C Attending Provider Active Team Status: Active Member Role Status Kenneth Lalit STEIN Primary Care Provider Active Dr. Lorenzo Brown MD Referring Provider, Other Provid er Active Dr. Dominick Mcclendon DO Attending Provider Active Team Status: Inactive Member Role Status Kenneth STEIN Primary Care Provider, Referring Pro vider Active Dr. Macy Arevalo MD Attending Provider Active Team Status: Active Member Role Status Dr. Kenneth Villanueva DO Primary Care Provider Active Dr. Macy Arevalo MD Attending Pr ovider, Referring Provider, Other Provider Active Team Status: Inactive Member Role Status Kenneth STEIN Primary Care Provider Active Dr. Gennaro Tejada DO Attending Provider, Emergency P gabriela Active Team Status: Inactive Member Role Status Kenneth STEIN Primary Care Provider Active Felicia Gonzalez NP, AB INITIO ETL DEVELOPER-C Attending Provider, Referring Provider Active Team Status: Inactive Member Role Status Kenneth Lalit STEIN Primary Care Provider Active Dr. Lorenzo Brown MD Attending Provider Active Team Status: Inactive Member Role Status Kenneth STEIN Primary Care Provider Active Dr. Steevn Pollard MD Attending Provider, Emergency Provider Active [...] Provider, Referrin g Provider Active Dr. Armando Zeng , DO Attending Provider Active Team Status: Inactive Member Role Status Dates Dr. Kenneth Villanueva DO Primary Care Provider Active Dr. Ketan Nayak MD Attending Provider Active Team Status: Inactive Member Role Status Dates Dr. Kenneth Villanueva DO Primary Care Provider Active Dr. Steven Pollard MD Attending Provider, Emergency Provider Active Team Status: Inactive Member Role Status Dates Dr. Kenneth Villanueva DO Primary Care Prov ider, Attending Provider, Referring Provider Active Bass Viol Repairer Relationship Specialty Start Date End Date Kenneth Villanueva DO [address] [place] [address] PCP - General Family Medicine 08/03/17 Casimiro Cardoza MD [address] [place] [address] Specialty Vp Medical Pulmonary and Critical Care Medicine 05/09/16 [place] [address] [place] [address] Specialty [facility] Medical Endocrinology 12/17/16 Vijaya /account manager relief [employer] Registered Nurse 12/17/15 Darby Olson [employer] Sales Agent Other 05/01/16 [facility] Registered Nurse 3/16/17 [employer] Transportation Provider 12/17/16 Bass Viol Repairer Relationship Specialty Start Date End Date Kenneth Villanueva DO [address] [place] [address] PCP - General Family Medicine 08/03/17 Casimiro Cardoza MD [address] [place] [address] Specialty Vp Medical Pulmonary and Critical Care Medicine 05/09/16 [place] [address] [place] [id number] Specialty Vp Medical Endocrinology 12/17/16 Vijaya /account manager relief [facility] Registered Nurse 12/17/15 Darby Olson [employer] Sales Agent Other 05/01/16 [facility] Registered Nurse 12/17/16 [facility] Transportation Transportation Provider 12/17/16 Team Status: Inactive Member Role Status Dates Kenneth STEIN Referring Provider Active Nroma Dunn NP, AB INITIO ETL DEVELOPER-C Attending Provider Active Dr. Kenneth Villanueva DO [...] Cunningham MD Attending Provider, Referring Provider Active Bass Viol Repairer Relationship Specialty Start Date End Date Kenneth Villanueva DO [address] [place], [place] [id number] PCP - General Family Medicine 08/03/17 Casimiro Cardoza MD [address] [place] [address] Specialty Vp Medical Pulmonary and Critical Care Medicine 05/09/16 [place] [address] [place] [address] Specialty Vp Medical Endocrinology 12/17/16 Vijaya /account manager relief [employer] Registered Nurse 12/17/15 Darby Olson [employer] Sales Agent Other 05/01/16 [facility] Registered Nurse 12/17/16 [facility] Transportation Provider 12/17/16 Team Status: Inactive Member Role Status Dates Dr. Kenneth Villanueva DO Primary Care Provider, Referrin g Provider Active Flori Lee AB INITIO ETL DEVELOPER, AB INITIO ETL DEVELOPER-C Attending Provider Active Team Status: Active Member Role Status Dates Dr. Kenneth Villanueva DO Primary Care Provider Active Dr. Lorenzo Brown MD Referring Provider, Other Provid er Active Dr. Dominick Mcclendon , Attending Provider Active Team Status: Inactive Member Role Status Dates Dr. Kenneth Villanueva DO Primary Care Provider Active Dr. Evon Ryan MD Attending Provider, Referri ng Provider Active Norma Dunn AB INITIO ETL DEVELOPER, AB INITIO ETL DEVELOPER-C Other Provider Active Team Status: Inactive Member [...] Maria A Hurtado MD Emergency Provider Active Bass Viol Repairer Relationship Specialty Start Date End Date Kenneth Villanueva DO [address] [place] [address] PCP - General Family Medicine 08/03/17 Casimiro Cardoza MD [address] [place], [place] [id number] Specialty Vp Medical Pulmonary and Critical Care Medicine 05/09/16 [place] [address] [place], [place] [id number] Specialty Vp Medical Endocrinology 12/17/16 Vijaya /account manager relief [employer] Registered Nurse 12/17/15 Darby Olson [employer] Sales Agent Other 05/01/16 [facility] Registered Nurse 12/17/16 [employer] Transportation Provider 12/17/16 Team Status: Inactive Member Role Status Dates Dr. Kenneth Villanueva DO Primary Care Provider, Referrin g Provider Active Norma Dunn AB INITIO ETL DEVELOPER, AB INITIO ETL DEVELOPER-C Attending Provider Active Team Status: Inactive Member Role Status Dates Dr. Kenneth Villanueva DO Primary Care Provider Active Dr. Maria A Hurtado MD Attending Provider, Emergency Provider Active Team Status: Inactive Member Role Status Dates Dr. Kenneth Villanueva DO Primary Care Provider Active Flori Lee AB INITIO ETL DEVELOPER, AB INITIO ETL DEVELOPER-C Attending Provider, Referrin g Provider Active Bass Viol Repairer Relationship Specialty Start Date End Date Kenneth Villanueva DO [address] [place] [address] PCP - General Family Medicine 08/03/17 Casimiro Cardoza MD [address] [place], [place] [id number] Specialty Vp Medical Pulmonary and Critical Care Medicine 05/09/16 [place] [address] [place] [address] Specialty Vp Medical Endocrinology 12/17/16 Vijaya /account manager relief [employer] Registered Nurse 12/17/15 Darby Olson [employer] Sales Agent Other 05/01/16 [facility] Registered Nurse 12/17/16 [facility] Transportation Provider 12/17/16 Bass Viol Repairer Relationship Specialty Start Date End Date Kenneth Villanueva DO [address] [place], [place] [id number] PCP - General Family Medicine 08/03/17 Casimiro Cardoza MD [address] [place], [place] [id number] Specialty Vp Medical Pulmonary and Critical Care Medicine 05/09/16 [place] [address] [place], [place] [id number] Specialty Vp Medical Endocrinology 12/17/16 Vijaya /account manager relief [facility] Registered Nurse 12/17/15 Darby Olson [employer] Sales Agent Other 05/01/16 [facility] Registered Nurse 12/17/16 [facility] Transportation Provider 12/17/16 Team Status: Active [...] 2024 End: December 13, 2024 Flori Lee AB INITIO ETL DEVELOPER, AB INITIO ETL DEVELOPER-C Attending Provider Active Start: December 13, 2024 [...] 2025 End: January 17, 2025 Flori Lee AB INITIO ETL DEVELOPER, AB INITIO ETL DEVELOPER-C Attending Provider Active Start: January 17, 2025 End: January 17, 2025 Flori Lee AB INITIO ETL DEVELOPER, AB INITIO ETL DEVELOPER-C Referring Provider Active Start: January 17, 2025 [...] 2025 End: January 19, 2025 Flori Lee AB INITIO ETL DEVELOPER, AB INITIO ETL DEVELOPER-C Attending Provider Active Start: January 19, 2025 End: January 19, 2025 Flori Lee AB INITIO ETL DEVELOPER, AB INITIO ETL DEVELOPER-C Referring Provider Active Start: January 19, 2025 End: January 19, 2025 Team Status: Active Member Role Status Dates Dr. Kenneth Villanueva DO Primary Care Provider Active Start: January 26, 2025 Flori Lee AB INITIO ETL DEVELOPER, AB INITIO ETL DEVELOPER-C Referring Provider Active Start: January 26, 2025 Flori Lee AB INITIO ETL DEVELOPER, AB INITIO ETL DEVELOPER-C Other Provider Active Start: January 26, 2025 Dr. Dominick Mcclendon DO Attending Provider Active S tart: January 26, 2025 Team Status: Inactive Member Role Status Dates Dr. Kenneth Villanueva DO Primary Care Provider Active Start: February 06, 2025 End: February 06, 2025 Dr. Kenneth Villanueva DO Referring Provider Active Start: February 06, 2025 End: February 06, 2025 Felciia Gonzalez AB INITIO ETL DEVELOPER, AB INITIO ETL DEVELOPER-C Attending Provider Active Start: February 06, 2025 End: February 06, 2025 Team Status: Active Member Role Status Dates Dr. Kenneth Villanueva DO Primary Care Provider Active Start: February 06, 2025 Felicia Gonzalez AB INITIO ETL DEVELOPER, AB INITIO ETL DEVELOPER-C Attending Provider Active Start: February 06, 2025 Felicia Gonzalez AB INITIO ETL DEVELOPER, AB INITIO ETL DEVELOPER-C Referring Provider Active Start: February 06, 2025 Team Status: Inactive Member Role Status Dates Dr. Kenneth Villanueva DO Primary Care Provider Active Start: February 07, 2025 End: February 07, 2025 Dr. Lisa Bailey , Referring Provider Active S tart: February 07, 2025 End: February 07, 2025 Dr. Lisa Bailey , DO Emergency Provider Active S tart: February 07, 2025 End: February 07, 2025 Team Status: Inactive Member Role Status Dates Dr. Kenneth Villanueva DO Primary Care Provider Active Start: February 06, 2025 End: February 06, 2025 Felicia Gonzalez AB INITIO ETL DEVELOPER, AB INITIO ETL DEVELOPER-C Attending Provider Active Start: February 06, 2025 End: February 06, 2025 Felicia Gonzalez AB INITIO ETL DEVELOPER, AB INITIO ETL DEVELOPER-C Referring Provider Active Start: February 06, 2025 End: February 06, 2025 Team Status: Inactive Member Role Status Dates Dr. Kenneth Villanueva DO Primary Care Provider Active Start: February 07, 2025 End: February 07, 2025 Dr. Lisa Bailey , DO Attending Provider Active S tart: February 07, 2025 End: February 07, 2025 Dr. Lisa Bailey , Referring Provider Active S tart: February 07, [...] 2025 End: March 08, 2025 Flori Lee AB INITIO ETL DEVELOPER, AB INITIO ETL DEVELOPER-C Attending Provider Active Start: March 08, 2025 [...] 2025 End: March 27, 2025 Felicia Gonzalez AB INITIO ETL DEVELOPER, AB INITIO ETL DEVELOPER-C Attending Provider Active Start: March 27, 2025 End: March 27, 2025 Team Status: Active Member Role Status Dates Dr. Kenneth Villanueva DO Primary Care Provider Active Start: March 27, 2025 Felicia Gonzalez AB INITIO ETL DEVELOPER, AB INITIO ETL DEVELOPER-C Attending Provider Active Start: March 27, 2025 Felicia Gonzalez AB INITIO ETL DEVELOPER, AB INITIO ETL DEVELOPER-C Referring Provider Active Start: March 27, 2025 Team Status: Active Member Role Status Dates Dr. Kenneth Villanueva DO Primary Care Provider Active Start: March 28, 2025 Norma Dunn AB INITIO ETL DEVELOPER, AB INITIO ETL DEVELOPER-C Attending Provider Active Start: March 28, 2025 Norma Dunn AB INITIO ETL DEVELOPER, AB INITIO ETL DEVELOPER-C Referring Provider Active Start: March 28, 2025 Team Status: Inactive Member Role Status Dates Dr. Kenneth Villanueva DO Primary Care Provider Active Start: March 28, 2025 End: March 28, 2025 Dr. Kenneth Villanueva DO Referring Provider Active Start: March 28, 2025 End: March 28, 2025 Franklyn Clement NP, AB INITIO ETL DEVELOPER-C Attending Provider Active S tart: March 28, 2025 End: March 28, 2025 Source Comments (unrecognize d section and content) In the event this informatio n is protected by the Federal Confidentiality of Alcohol and Drug Abuse Patient Records regulations: The Federal rules restrict any use of the information to criminally investigate or prosecute any alcohol or drug abuse patient.[facility] the event this information is protected by the Federal Confidentiality of Alcohol and Drug Abuse Patient Records regulations: The Federal rules restrict any use of the information to criminally investigate or prosecute any alcohol or drug abuse patient.[facility] Campus[facility] the event this information is protected by the Federal Confidentiality of Alcohol and Drug Abuse Patient Records regulations: The Federal rules restrict any use of the information to criminally investigate or prosecute any alcohol or drug abuse patient.[facility] Campus[facility] the event this information is protected by the Federal Confidentiality of Alcohol and Drug Abuse Patient Records regulations: The Federal rules restrict any use of the information to criminally investigate or prosecute any alcohol or drug abuse patient.[facility] Campus[facility] the event this information is protected by the Federal Confidentiality of Alcohol and Drug Abuse Patient Records regulations: The Federal rules restrict any use of the information to criminally investigate or prosecute any alcohol or drug abuse patient.[facility] Campus[facility] the event this information is protected by the Federal Confidentiality of Alcohol and Drug Abuse Patient Records regulations: The Federal rules restrict any use of the information to criminally investigate or prosecute any alcohol or drug abuse patient.[facility] Reason for Visit (unrecogniz ed section and content) Reason Comments New Referred by Dr Christiano gorman. Xrays taken 05/07/2023 and 04/30/[address] [facility] Fracture Referred by Dr Christiano gorman. Xrays taken 05/07/2023 and 04/30/[address] [facility] Reason Comments New Diabetic Foot Check FOR [...] BE BASED ON THE PRIMARY CLINICAL RECORDS. [facility] provides no warranty or guarantee of the accuracy or completeness of information in this document.
== END | disposition home or self-care (01) ==
PROVIDERS: PCP Family Medicine; Referring Provider Nurse Practitioner Gerontology; Visit Provider Nurse Practitioner Gerontology
DX: I10 Essential (primary) hypertension (principal); R55 Syncope and collapse
CPT/HCPCS: 93788

== ENCOUNTER → 2025-04-16 | Outpatient (CLI) | payer MEDICARE, MEDICAID, SELFPAY | END | disposition home or self-care (01) | LOC: LABSPEC 12:16 | PROVIDERS: PCP Family Medicine; Referring Provider Nurse Practitioner Acute Care; Visit Provider Nurse Practitioner Acute Care | DX: R50.9 Fever, unspecified (principal) | CPT/HCPCS: 87631 ==

== ENCOUNTER → 2025-04-18 | Outpatient (CLI) | payer MEDICARE, MEDICAID, SELFPAY ==
--- NOTE | 2025-04-18 11:52 | RAD_ITS ---
EXAM: XR Chest, 2 Views CLINICAL INDICATION: SOB, COUGH R/O PNEUMONIA TECHNIQUE: Frontal and lateral views of the chest. COMPARISON: No relevant prior studies available. FINDINGS: LUNGS AND PLEURAL SPACES: See below. HEART: Cardiomegaly with mild congestion. MEDIASTINUM: Unremarkable. Normal mediastinal contour. BONES/JOINTS: Unremarkable. No acute fracture. RAD/Chest PA and Lateral IMPRESSION: Cardiomegaly with mild congestion. [facility]
[2025-04-18 12:30] LABS: Creatinine, Urine (random) 290.00 mg/dL (28.00-217.00); Protein, Urine (Random) 120.0 mg/dL (0.0-12.0); Protein:Creat Ratio 414 mg/g CRE (0-200)
[2025-04-18 12:48] LABS: Albumin, Serum 4.2 g/dL (3.5-5.0); Anion Gap 12 (5-15); BUN 7 mg/dL (4-19); BUN/Creat Ratio 8.2 RATIO (10-20); Calcium,Total 8.9 mg/dL (7.6-11.0); Carbon Dioxide 25.5 mmol/L (21.0-32.0); Chloride 101 mmol/L (98-108); Glucose 163 mg/dL (70-99); Potassium 3.9 mmol/L (3.3-5.1)
== END | disposition home or self-care (01) ==
PROVIDERS: PCP Family Medicine; Referring Provider Nurse Practitioner Family; Visit Provider Nurse Practitioner Family
DX: R06.02 Shortness of breath (principal); R05.9 Cough, unspecified; N17.9 Acute kidney failure, unspecified
CPT/HCPCS: 36415; 71046; 80069; 82570; 84156

== ENCOUNTER → 2025-05-18 | Outpatient (CLI) | payer MEDICARE, MEDICAID, SELFPAY ==
--- NOTE | 2025-05-18 09:14 | ECHOCS_ITS ---
Reason For Study Reason For Study: HYPERTENSION Procedure This was a 2D Doppler, Color Flow transthoracic echocardiogram. Definity images done with patient supine- more on axis imaging.. The study was technically difficult. Contrast injection was performed. Exam performed in department. Left Ventricle Normal left ventricle. Left ventricular systolic function is normal. The left ventricular ejection fraction is 55 %. No regional wall motion abnormalities noted. Right Ventricle Normal RV size. The right ventricle is normal in size, function, and thickness. Atria Normal left atrium. Normal right atrium. Mitral Valve Normal mitral valve. Tricuspid Valve Normal tricuspid valve. Aortic Valve Trisinus/trileaflet aortic valve. Pulmonic Valve The pulmonic valve is not well visualized. Great Vessels Normal aortic root. The pulmonary artery is normal size. Inferior vena cava collapse with respiration. Pericardium/Pleural No pericardial effusion. Medication 22 gauge I.V. with prn adaptor inserted into left arm. Diluted definity 2ml given slow IV push to enhance endocardial definition. MMode/2D Measurements & Calculations LVIDd: 4.6 cm IVSd: 0.91 cm LVOT diam: 1.9 cm LVIDs: 3.0 cm LVPWd: 0.92 cm RVDd: 2.7 cm FS: 33.7 % LVOT area: 2.7 cm2 asc Aorta Diam: 2.3 cm LAV(MOD-bp): 42.2 ml LVAd ap4: 31.0 cm2 LAV(MOD-bp) Indexed: 18.5 ml/m2 LVLd ap4: 7.4 cm LAV(MOD-sp2): 27.9 ml EDV(MOD-sp4): 105.3 ml LAV(MOD-sp4): 52.0 ml EDV(sp4-el): 110.3 ml LVAs ap4: 19.2 cm2 LVLs ap4: 5.8 cm ESV(MOD-sp4): 50.2 ml ESV(sp4-el): 53.7 ml EF(MOD-sp4): 52.3 % EF(sp4-el): 51.3 % LVAd ap2: 26.1 cm2 SV(MOD-sp4): 55.1 ml SV(MOD-sp2): 42.6 ml LVLd ap2: 7.1 cm SI(MOD-sp4): 24.1 ml/m2 SI(MOD-sp2): 18.6 ml/m2 EDV(MOD-sp2): 78.2 ml EDV(sp2-el): 82.0 ml LVAs ap2: 15.9 cm2 LVLs ap2: 5.9 cm ESV(MOD-sp2): 35.6 ml ESV(sp2-el): 36.7 ml EF(MOD-sp2): 54.5 % SV(sp4-el): 56.6 ml Ao sinus diam: 2.6 cm LA A4 area: 19.4 cm2 LA dimension(2D): 2.7 cm RA A4 area: 13.6 cm2 TAPSE: 1.8 cm Time Measurements MV dec time: 0.19 sec Doppler Measurements & Calculations MV E max boyd: 80.8 cm/sec Lat Peak E' Boyd: 7.6 cm/sec Med Peak E' Boyd: 12.8 cm/sec MV A max boyd: 90.8 cm/sec E/E' lat: 10.6 E/E' med: 6.3 MV E/A: 0.89 Ao V2 max: 127.5 cm/sec LV V1 max: 97.1 cm/sec MV dec slope: 419.5 cm/sec2 Ao max P.5 mmHg LV V1 max P.8 mmHg Ao V2 mean: 95.5 cm/sec LV V1 mean P.9 mmHg Ao mean P.9 mmHg LV V1 mean: 66.2 cm/sec Ao V2 VTI: 26.2 cm LV V1 VTI: 18.5 cm AV (velocity ratio): 0.71 HIMA(I,D): 1.9 cm2 HIMA(V,D): 2.1 cm2 SV(LVOT): 50.2 ml PA V2 max: 96.6 cm/sec ECHO/Echo Complete W/ Contrast Interpretation Summary Left ventricular systolic function is normal. Normal left ventricle. The left ventricular ejection fraction is 55 %. Contrast injection was performed. Ordering Physician: Franklyn Celment Referring Physician: Asim Cohn Performed By: Laila Oliver RDCS
== END | disposition home or self-care (01) ==
LOC: CVS 09:13
PROVIDERS: PCP Family Medicine; Referring Provider Nurse Practitioner Family; Visit Provider Nurse Practitioner Family
DX: R55 Syncope and collapse (principal); I10 Essential (primary) hypertension
CPT/HCPCS: 93306; Q9957; A4216; C8929

== ENCOUNTER → 2025-06-13 | Outpatient (CLI) | payer MEDICARE, MEDICAID, SELFPAY ==
--- NOTE | 2025-06-13 08:12 | BI_ITS ---
EXAM: SCRN MAMM (CAD)W/DEVON BILAT DATE: 06/13/2025 CLINICAL HISTORY: F, Age 44 y/o , SCREENING Aunt with breast cancer. TECHNIQUE: Procedure Code: [id number] Modality: MG Procedure: SCRN MAMM (CAD)W/DEOVN BILAT COMPARISON: Prior exam(s) dated June 01, 2024.. FINDINGS: TISSUE DENSITY: There are scattered areas of fibroglandular density. Bilateral Breast Mammographic Findings: No significant masses, calcifications or other abnormalities are identified. No suspicious masses, areas of developing architectural distortion, or suspicious calcifications. There has been no significant interval change. BI/SCRN MAMM (CAD)W/DEVON BILAT IMPRESSION: Stable bilateral screening mammogram. OVERALL FINAL ASSESSMENT BI-RADS 1: NEGATIVE. RECOMMENDATION: Routine annual follow-up in 1 Year A letter with findings and recommendations will be mailed to the patient. Reading Location: [facility]
== END | disposition home or self-care (01) ==
LOC: OPBI 08:11
PROVIDERS: PCP Family Medicine; Referring Provider Family Medicine; Visit Provider Family Medicine
DX: Z12.31 Encounter for screening mammogram for malignant neoplasm of breast (principal); Z80.3 Family history of malignant neoplasm of breast
CPT/HCPCS: 77063; 77067

== ENCOUNTER → 2025-07-26 | Outpatient (CLI) | payer MEDICARE, MEDICAID, SELFPAY | END | disposition home or self-care (01) | LOC: LABSPEC 15:09 | PROVIDERS: PCP Family Medicine; Referring Provider Family Medicine; Visit Provider Family Medicine | DX: R31.9 Hematuria, unspecified (principal) | CPT/HCPCS: 87086; 87088 ==

== ENCOUNTER → 2025-08-10 | Outpatient (CLI) | payer MEDICARE, MEDICAID, SELFPAY ==
[2025-08-10 10:01] LABS: CORTISOL AM 8.18 ug/dL (6.02-18.40)
== END | disposition home or self-care (01) ==
PROVIDERS: PCP Family Medicine; Referring Provider Physician Assistant Medical; Visit Provider Physician Assistant Medical
DX: I1A.0 Resistant hypertension (principal)
CPT/HCPCS: 36415; 82384; 82533; 84244